=== PATIENT | female | born 1960 | race Caucasian/White ===

== ENCOUNTER 2021-12-11 19:00 | Emergency (ER) | payer BC, SELFPAY ==
[2021-12-11 19:48] VITALS: BP 165/75; PULSE 100; RESP 20; TEMP 36.8; O2SAT 98; BMI 29.7
--- NOTE | 2021-12-11 20:05 | CT_ITS ---
PROCEDURE INFORMATION: Exam: CT Abdomen And Pelvis Without Contrast Exam date and time: 12/11/2021 8:05 PM Age: 61 years old Clinical indication: Abdominal pain and other: Back; Patient HX: Pain radiates down left leg. HX metastatic breast cancer; Additional info: Back and abd pain TECHNIQUE: Imaging protocol: Computed tomography of the abdomen and pelvis without contrast. Radiation optimization: All CT scans at this facility use at least one of these dose optimization techniques: automated exposure control; mA and/or kV adjustment per patient size (includes targeted exams where dose is matched to clinical indication); or iterative reconstruction. COMPARISON: No relevant prior studies available. FINDINGS: Lungs: Mild dependent atelectasis at the lung bases. No consolidation. Calcified granuloma at the left lung base. Liver: Indeterminate 1 cm low-attenuation lesion near the junction of segments 6 and 7 in the posterior right hepatic lobe (series 5, image 31). Assessment for additional liver lesions is limited in the absence of intravenous contrast. Gallbladder and bile ducts: No wall thickening. No calcified stones. No biliary dilation. Pancreas: Unremarkable noncontrast appearance. Spleen: Normal. No splenomegaly. Adrenal glands: Normal. No mass. Kidneys and ureters: There is a 1.3 x 1.5 cm calculus at the lower pole the left kidney. There are a few nonobstructing right lower pole caliceal calculi measuring up to 0.2 cm in size. No hydronephrosis. No ureteral calculus. Stomach and bowel: No obstruction. No abnormal bowel wall thickening. Appendix: No evidence of appendicitis. Intraperitoneal space: No pneumoperitoneum. No ascites. Vasculature: Unremarkable. No abdominal aortic aneurysm. Lymph nodes: No enlarged lymph nodes. Urinary bladder: Bladder is decompressed, limiting its evaluation. Reproductive: Unremarkable as visualized. Bones/joints: Osteopenia. Widespread osseous metastatic disease. Age-indeterminate nondisplaced pathologic fractures of the posterior right 9th and 12th ribs, as well as the posterior left 9th and 10th ribs. Chronic-appearing mild superior endplate compression deformity of T10. Expansile lesion within the posterior, inferior portion of the L4 vertebral body resulting in posterior displacement of vertebral fragments, and a severe spinal canal stenosis at the L4-L5 level in conjunction with chronic degenerative factors. There is also high-grade left greater than right neural foraminal narrowing at L4-L5 and L5-S1. No significant height loss of the L4 vertebral body. There is a 1.6 cm mixed lucent/sclerotic lesion in the left femoral neck. No associated cortical thinning or periosteal reaction. There is chronic degenerative remodeling of both hips. Soft tissues: Postsurgical and/or post therapeutic changes in the deep left breast, for which correlation with history and breast imaging is recommended. Chronic postsurgical scarring in the lower anterior abdominal wall. Small right femoral hernia containing adipose tissue. IMPRESSION: 1. Widespread osseous metastatic disease. Expansile lesion in the posteroinferior portion of the L4 vertebral body producing a severe spinal canal stenosis at L4-L5. Age-indeterminate pathologic fractures of several posterior ribs bilaterally. 2. Indeterminate 1 cm lesion in the right hepatic lobe, metastatic disease is within the differential. If not previously evaluated, further assessed with liver MRI should be considered. 3. Bilateral nonobstructive nephrolithiasis.
[2021-12-11 20:12] LABS: Basophils # 0.1 K/mm3 (0-0.2); Eosinophils # 0.2 K/mm3 (0.0-0.4); Eosinophils % 2.5 % (0.1-12.0); Hematocrit 35.9 % (37.0-47.0); Lymphocytes # 1.4 K/mm3 (0.7-4.5); Lymphocytes % 15.4 % (10-50); Mean Corpuscular HGB Conc 33.5 g/dL (31.8-35.4); Mean Corpuscular Hemoglobin 33.3 pg (27.0-31.2); Mean Corpuscular Volume 99.3 fl (81-99); Mean Platelet Volume 7.7 fl (7.4-10.4); Monocytes # 0.3 K/mm3 (0.1-1.0); Monocytes % 3.6 % (1.7-9.3); Neutrophils # 6.8 K/mm3 (1.8-7.8); Neutrophils % 77.3 % (37.0-80.0); Platelet Count 303 K/mm3 (142-424); Red Blood Count 3.61 M/mm3 (4.20-5.40); White Blood Count 8.8 K/mm3 (4.8-10.8)
[2021-12-11 20:17] LABS: Microscopic, Urine URINE MICROSCOPIC (MICROSCOPIC)
--- NOTE | 2021-12-11 20:19 | PC.NURSE ---
Pt back from radiology
[2021-12-11 20:24] LABS: Alanine Aminotransferase 38 U/L (12-78); Albumin Level 4.4 g/dl (3.5-5.0); Albumin/Globulin Ratio 1.2 (1.1-1.8); Alkaline Phosphatase 65 U/L (38-126); Amylase 75 U/L (30-110); Anion Gap 18.8 mEq/L (5-15); Aspartate Amino Transferase 52 U/L (14-36); Bilirubin,Total 0.9 mg/dl (0.2-1.3); Blood Urea Nitrogen 22 mg/dl (7-17); Calcium 8.6 mg/dl (8.4-10.2); Carbon Dioxide 17 mmol/L (22.0-30.0); Chloride 108 mmol/L (98-107); Creatinine Clearance Estimated 58 mL/min (50-200); Estimated Glomerular Filt Rate 38 ml/min (>60); GFR (African American) 46 ML/MIN (>60); Globulin 3.6 g/dL (1.3-3.2); Glucose 187 mg/dl (74-100); Lipase 145 U/L (23-300); Magnesium 1.4 mg/dl (1.6-2.3); Potassium 4.8 mmoL/L (3.5-5.1); Sodium 139 mmol/L (136-145)
[2021-12-11 20:27] LABS: Appearance,Urine CLEAR (Clear); Bilirubin,Urine Negative (Negative); Blood, Urine TRACE-L (Negative); Color,Urine YELLOW (Yellow); Glucose,Urine (UA) Negative (Negative); Ketones,Urine Negative (Negative); Leukocyte Esterase,Urine Negative (Negative); Nitrate,Urine Negative (Negative); Protein,Urine 1+ (Negative); Specific Gravity, Urine <= 1.005 (1.005-1.030); Urobilinogen,Urine 0.2 EU/dl (0.2)
[2021-12-11 20:29] LABS: C-Reactive Protein 3.3 mg/L (0-4)
[2021-12-11 20:37] LABS: Squamous Epithelial Cell,Urine Occasional #/hpf (0-5); WBC,Urine Occasional #/hpf (0-3)
[2021-12-11 20:43] LABS: Procalcitonin 0.071 ng/mL (0.0-2.0)
[2021-12-11 21:26] LABS: Erythrocyte Sedimentation Rate 46 mm/hr (0-30)
--- NOTE | 2021-12-11 21:44 | HMH.EDGENADL ---
ED Disposition Clinical Impression: Metastatic breast cancer, Lesion of lumbar spine Disposition: Left Against Medical Advice Condition on Discharge: Serious Instructions: DI for Acute Pain -- Adult Additional Instructions: call oncologist in am Referrals: Provider,Referral, [Primary Care Provider] - - Critical Care Critical Care Time: No Attestation: On 12/11/21, the high probability of a clinically significant, sudden or life threatening deterioration of the following system(s) required my full and direct attention, intervention and personal management. The time I documented below is in addition to time spent performing reported procedures but includes the following listed in this critical care notation. Medical Decision Making - Medical Records Medical records reviewed: Yes: I reviewed the patient's medical records. - Mukesh Inquiry Pt receiving controlled substance: No Vital Signs: 12/11/21 19:48 Temperature 98.3 F Temperature Source Oral Pulse Rate [Apical] 100 H Respiratory Rate 20 Blood Pressure [Right Arm] 165/75 H Blood Pressure Mean [Right Arm] 105 Blood Pressure Source [Right Arm] Automatic Cuff Blood Pressure Position [Right Arm] Sitting 02 Sat by Pulse Oximetry 98 Oxygen Delivery Method Room Air - Lab Data Lab results reviewed: Yes: I reviewed the patient's lab results. Lab Results 12/11/21 20:00: WBC 8.8, RBC 3.61 L, Hgb 12.0 L, Hct 35.9 L, MCV 99.3 H, MCH 33.3 H, MCHC 33.5, RDW 16.0, Plt Count 303, MPV 7.7, Neut % (Auto) 77.3, Lymph % (Auto) 15.4, [place] % (Auto) 3.6, Eos % (Auto) 2.5, Baso % (Auto) 1.0, Neut # (Auto) 6.8, Lymph # (Auto) 1.4, [place] # (Auto) 0.3, Eos # (Auto) 0.2, Baso # (Auto) 0.1, ESR 46 H 12/11/21 20:00: Sodium 139, Potassium 4.8, Chloride 108 H, Carbon Dioxide 17 L, Anion Gap 18.8 H, BUN 22 H, Creatinine 1.40 H, Estimated Creat Clear 58, Estimated GFR 38 L, Est GFR ( Amer) 46 L, Glucose 187 H, Calcium 8.6, Total Bilirubin 0.9, AST 52 H, ALT 38, Alkaline Phosphatase 65, C-Reactive Protein 3.3, Total Protein 8.0, Albumin 4.4, Globulin 3.6 H, Albumin/Globulin Ratio 1.2, Amylase 75, Procalcitonin 0.071 12/11/21 20:00: Magnesium 1.4 L, Lipase 145 12/11/21 20:15: Urine Color Yellow, Urine Appearance Clear, Urine pH 6.0, Ur Specific [place] <= 1.005, Urine Protein 1+, Urine Glucose (UA) Negative, Urine Ketones Negative, Urine Blood Trace-l, Urine Nitrate Negative, Urine Bilirubin Negative, Urine Urobilinogen 0.2, Ur Leukocyte Esterase Negative, Urine RBC None, Urine WBC Occasional, Ur Squamous Epith Cells Occasional, Urine Bacteria None Result diagrams: 12/11/21 20:00 12/11/21 20:00 Orders (Tests/Meds): ED MEDICATIONS Generic Name Dose Route Start Last Admin Trade Name Freq PRN Reason Stop Dose Admin Sodium Chloride 1,000 mls @ 999 mls/hr 12/11/21 20:15 12/11/21 20:10 Sod Chlor 0.9% 1000ml Bag IV 12/11/21 21:15 999 mls/hr .Q1H1M FREIDA Administration Discontinued Medications Generic Name Dose Route Start Last Admin Trade Name Freq PRN Reason Stop Dose Admin Insulin Human Regular 10 unit 12/11/21 21:42 Insulin Human Regular 100 Units/Ml 10ml Vial IVP 12/11/21 21:43 ONCE ONE Ketorolac Tromethamine 30 mg 12/11/21 20:06 12/11/21 20:10 Ketorolac 30mg/Ml Vial IV 12/11/21 20:07 30 mg ONCE ONE Administration ORDERS Category Date Time Status CT cervical spine w con Stat Cat Scan 12/11/21 21:[address] lumbar spine w con Stat Cat Scan 12/11/21 21:[address] thoracic spine w con Stat Cat Scan 12/11/21 21:42 Ordered - CT Data CT Scan: Abdomen, Pelvis Time Received: 22:[address] Reviewed: Yes: I have viewed the radiologist's interpretation Preliminary Findings: Abnormal (see report ) Medical Decision Narrative: has known metastatic breast cancer with lesion to lumbar spine - no cauda equina sx - wants to call her oncologist - dr mei in am General Adult HPI - General Chief complaint: PAIN Stated complai
[2021-12-11 22:47] VITALS: BP 167/88; PULSE 78; RESP 18; TEMP 36.8; O2SAT 99
== END 2021-12-11 23:01 | disposition left against medical advice (07) ==
LOC: ER 19:29 → UTC 19:32 → ER 19:43
PROVIDERS: Emergency Provider Emergency Medicine
DX: M54.50 Low back pain, unspecified (principal); C50.919 Malignant neoplasm of unspecified site of unspecified female breast; C79.51 Secondary malignant neoplasm of bone
CPT/HCPCS: 74176; 80053; 81001; 82150; 83690; 83735; 84145; 85025; 85651; 86140; 96365; 96375; 99284

== ENCOUNTER 2025-08-15 09:12 | Inpatient (IN) | payer OTHER, SELFPAY ==
--- OUTSIDE RECORDS SUMMARY | 2025-06-16 13:30 | XMS_ITS | Encounter Summary ---
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 no 09/07/2022 Physical Signs of Abuse Present no 09/07/2022 PHQ-2 Answer Date Recorded Patient Health Questionnaire-2 Score 0 10/22/2024 Comments No Sex and Gender Information Value Date Recorded Sex Assigned at Not on file Legal Sex Female 11:35 AM EDT Gender Identity Not on file Sexual Orientation Not on file documented as of this encounter Plan of Treatment Upcoming Encounters Date Type Department Care Team (Late st Contact Info) Description 08/18/2025 8:45 AM EST Appointment [facility] OUTPATIENT ONCOL[facility]Y [address] [place] [address] 08/18/2025 9:15 AM EST Office Visit [facility] [address] [address] Valentina Sadler MD [address] [facility] [address] [place] [address] 08/18/2025 9:30 AM EST Appointment [facility] [address] [place] [address] 09/13/2025 1:00 PM EST Clinical Support [facility] [address] [facility] [place] [address] Lita Luis APRN [address] [place] [address] documented as of this encounter Goals Goal Patient Goal Type Associated Problems Recent Progress Patient-Stated? Author Specialty Pharmacy General Goal General No Leighann Lam, PharmD Note: Clinical goal/therapeutic target: disease control, per the recent oncology clinic notes and labs. 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 documented in this encounter Results * (ABNORMAL) CBC Auto Differential (06/16/2025 2:39 PM EDT) [facility] WBC 3.29(L) 3.40 - 10.80 10*3/mm3 06/16/2025 2:56 PM EDT [facility] RBC 3.01(L) 3.77 - 5.28 10*6/mm3 06/16/2025 2:56 PM EDT [facility] Hemoglobin 7.8(L) 12.0 - 15.9 g/dL 06/16/2025 2:56 PM EDT [facility] Hematocrit 25.5(L) 34.0 - 46.6 % 06/16/2025 2:56 PM EDT [facility] MCV 84.7 79.0 - 97.0 fL 06/16/2025 2:56 PM EDT [facility] MCH 25.9(L) 26.6 - 33.0 pg 06/16/2025 2:56 PM EDT [facility] MCHC 30.6(L) 31.5 - 35.7 g/dL 06/16/2025 2:56 PM EDT [facility] RDW 16.1(H) 12.3 - 15.4 % 06/16/2025 2:56 PM EDT [facility] RDW-SD 50.9 37.0 - 54.0 fl 06/16/2025 2:56 PM EDT [facility] MPV 8.8 6.0 - 12.0 fL 06/16/2025 2:56 PM EDT [facility] Platelets 77(L) 140 - 450 10*3/mm3 06/16/2025 2:56 PM EDT [facility] Neutrophil % 75.4 42.7 - 76.0 % 06/16/2025 2:56 PM EDT [facility] Lymphocyte % 14.3(L) 19.6 - 45.3 % 06/16/2025 2:56 PM EDT [facility] Monocyte % 7.9 5.0 - 12.0 % 06/16/2025 2:56 PM EDT [facility] Eosinophil % 2.1 0.3 - 6.2 % 06/16/2025 2:56 PM EDT [facility] Basophil % 0.3 0.0 - 1.5 % 06/16/2025 2:56 PM EDT [facility] Immature Grans % 0.0 0.0 - 0.5 % 06/16/2025 2:56 PM EDT [facility] Neutrophils, Absolute 2.48 1.70 - 7.00 10*3/mm3 06/16/2025 2:56 PM EDT [facility] Lymphocytes, Absolute 0.47(L) 0.70 - 3.10 10*3/mm3 06/16/2025 2:56 PM EDT [facility] Monocytes, Absolute 0.26 0.10 - 0.90 10*3/mm3 06/16/2025 2:56 PM EDT [facility] Eosinophils, Absolute 0.07 0.00 - 0.40 10*3/mm3 06/16/2025 2:56 PM EDT [facility] Basophils, Absolute 0.01 0.00 - 0.20 10*3/mm3 06/16/2025 2:56 PM EDT [facility] Immature Grans, Absolute 0.00 0.00 - 0.05 10*3/mm3 06/16/2025 2:56 PM EDT [facility] Blood Port / Unknown 06/16/2025 2: 39 PM EDT 06/16/2025 2:53 PM EDT us Valentina Sadler MD LAB BLOOD ORDERABLES Sherry l Result [facility]
[address] [place] [address], * (ABNORMAL) Comprehensive Metabolic Panel (06/16/2025 2:39 PM EDT) Glucose 199(H) 65 - 99 mg/dL 06/16/2025 3:23 PM EDT [facility] BUN 26.5(H) 8.0 - 23.0 mg/dL 06/16/2025 3:23 PM EDT [facility] Creatinine 1.70(H) 0.57 - 1.00 mg/dL 06/16/2025 3:23 PM T [facility] Sodium 139 136 - 145 mmol/L 06/16/2025 3:23 PM EDT [facility] Potassium 4.2 3.5 - 5.2 mmol/L 06/16/2025 3:23 PM EDT [facility] Chloride 103 98 - 107 mmol/L 06/16/2025 3:23 PM EDT [facility] CO2 23.0 22.0 - 29.0 mmol/L 06/16/2025 3:23 PM EDT [facility] Calcium 8.9 8.6 - 10.5 mg/dL 06/16/2025 3:23 PM [facility] Total Protein 6.9 6.0 - 8.5 g/dL 06/16/2025 3:23 PM [facility] Albumin 3.6 3.5 - 5.2 g/dL 06/16/2025 3:23 PM [facility] ALT (SGPT) 25 1 - 33 U/L 06/16/2025 3:23 PM [facility] AST (SGOT) 40(H) 1 - 32 U/L 06/16/2025 3:23 PM T [facility] Alkaline Phosphatase 140(H) 39 - 117 U/L 06/16/2025 3:23 PM T [facility] Total Bilirubin 0.2 0.0 - 1.2 mg/dL 06/16/2025 3:23 PM T [facility] Globulin 3.3 gm/dL 06/16/2025 3:23 PM [facility] Comment:Calculated Result A/G Ratio 1.1 g/dL 06/16/2025 3:23 PM T [facility] BUN/Creatinine Ratio 15.6 7.0 - 25.0 06/16/2025 3:23 PM EDT [facility] Anion Gap 13.0 5.0 - 15.0 mmol/L 06/16/2025 3:23 PM EDT [facility] eGFR 33.6(L) >60.0 mL/min/1.7 3 06/16/2025 3:23 PM EDT [facility] Blood Port / Unknown 06/16/2025 2: 39 PM EDT 06/16/2025 2:57 PM EDT Narrative [facility] - 06/16/2025 3:23 PM EDT GFR Categories in Chronic Kidney Disease (CKD) GFR Category GFR (mL/min/1.73) Interpretation G1 90 or greater Normal or high (1) G2 60-89 Mild decrease (1) G3a 45-59 Mild to moderate decrease G3b 30-44 Moderate to severe decrease G4 15-29 Severe decrease G5 14 or less Kidney failure (1)In the absence of evidence of kidney disease, neither GFR category G1 or G2 fulfill the criteria for CKD. eGFR calculation 2020 CKD-EPI creatinine equation, which does not include race as a factor Valentina Sadler MD LAB BLOOD ORDERABLES Sherry saucedo Result [facility]
[address] [place] [address], documented in this encounter Visit Diagnoses Diagnosis Encounter for care related to vascular access port- Primary Adenocarcinoma of 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 documented in this encounter Administered Medications Inactive Administered Medications - up to 3 most recent administrations Medication Order MAR Action Action Date Dose Rate Site heparin injection 500 Units 500 Units, Intravenous, As Needed, Line Care, Starting on Sat06/16/25 at 1439, Use for Implanted Ports.Indications:Encounter for care related to vascular access port Given 06/16/2025 2:48 PM EDT 500 Units documented in this encounter Care Teams Associate Drafter Relationship Specialty [place] [address] [place] [address] PCP - General 12/19/15 07/28/25 documented as of this encounter
--- OUTSIDE RECORDS SUMMARY | 2025-06-16 14:30 | XMS_ITS | Encounter Summary ---
Author Organization [facility] Address [address] [place] [address] Care Team Providers Care Commercial Fisher Name Role Phone Loretta Cuevas MD Primary Care Provider [phone] Encounter Details Date Type Department Care Team (Late st Contact Info) Description 06/16/2025 3:30 PM EDT Office Visit [facility] HEMATOLOGY & [facility]COLOGY [address] [facility] [address] [place] [id number] Valentina Sadler MD [address] [facility] [address] [place] [address] Dysuria (Primary Dx); Malignant neoplasm metastatic to brain; Malignant neoplasm of upper-outer quadrant of left breast in female, estrogen receptor positive Social History Tobacco Use Types Packs/Day Years [...] on file documented as of this encounter Last Filed Vital Signs Vital Sign Reading Time Taken Comments Blood Pressure 135/63 06/16/2025 3:04 PM EDT RUE Pulse 86 06/16/2025 3:04 PM EDT Temperature 36.1 C (96.9 F) 06/16/2025 3:04 PM EDT Respiratory Rate 16 06/16/2025 3:04 PM EDT Oxygen Saturation 100% 06/16/2025 3:04 PM EDT RA Inhaled Oxygen Concentration - - Weight 72.6 kg (160 lb) 06/16/2025 3:04 PM EDT Height 170.2 cm (5' 7 ) 06/16/2025 3:04 PM EDT Body Mass Index 25.06 06/16/2025 3:04 PM EDT documented in this encounter Progress Notes * Valentina Sadler MD - 06/16/2025 3:30 PM EDT PROBLEM LIST: Oncology/Hematology History Overview Note 1. Stage IIA, ER/PA positive, HER-2 positive left upper/outer quadrant breast cancer, status post lumpectomy and lymph node dissection with 2/5 lymph nodes positive at the time of surgery on 12/01/2013. 2. Completed 6 cycles of Taxotere, carboplatin, Herceptin and Perjeta on 04/06/2014. 3. Grade 1 neuropathy, resolved. 4. Complete oophorectomy with Dr. Danielle for consideration of aromatase inhibitor due to high risk breast cancer. 5. Completed Herceptin maintenance in 12/2014 6. Completed radiotherapy with Dr. Flower Mackay. Malignant neoplasm of upper-outer quadrant of left breast in female, estrogen receptor positive 11/02/2013 Initial Diagnosis Malignant neoplasm of upper-outer quadrant of left female breast 12/01/2013 Cancer Staged Staging form: Breast, AJCC V7 - Clinical stage from 12/01/2013: Stage IIA (T1b, N1, M0) - Signed by Valentina Sadler MD on 09/25/2019 09/25/2019 Progression 1. Liver and Bone Mets - ER negative, PA Negative and HER-2 positve Lab Results Component Value Date FINALDX 09/22/2019 LIVER, CORE BIOPSY: Involved by metastatic carcinoma consistent with metastatic breast carcinoma (see Comment). Metastatic tumor is negative for estrogen receptor and progesterone receptor by immunohistochemistry. Metastatic tumor is strongly positive for HER-2/yadi by immunohistochemistry (3+). PCC/dlb Chemotherapy 1. TCH-P Adjuvantly x 6 cycles till 03/2014 2. Herceptin maintenance until 12/201410/09/2019 - 02/11/2020 Chemotherapy OP BREAST Pertuzumab / Trastuzumab-anns / PACLitaxel 02/12/2020 - 05/05/2020 Chemotherapy OP BREAST Pertuzumab / Trastuzumab-anns Q21D 05/06/2020 - 07/07/2020 Chemotherapy OP BREAST Lapatinib / Trastuzumab-anns Q21D 07/15/2020 - 11/16/2020 Chemotherapy OP BREAST Ado-Trastuzumab Emtansine 11/17/2020 - 12/21/2021 Chemotherapy OP BREAST Tucatinib / Capecitabine / Trastuzumab-anns 08/17/2021 - 08/17/2021 Chemotherapy OP INFLUENZA IMMUNIZATION 01/11/2022 - Chemotherapy OP BREAST Fam-Trastuzumab Deruxtecan-nxki Adenocarcinoma of 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 09/25/2019 Initial Diagnosis Adenocarcinoma of 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 (CMS/HCC) 10/09/2019 - 02/11/2020 Chemotherapy OP BREAST Pertuzumab / Trastuzumab-anns / PACLitaxel 10/09/2019 - 02/22/2022 Chemotherapy OP SUPPORTIVE Denosumab (Xgeva) 12 weeks after 06/15/2021 02/12/2020 - 05/05/2020 Chemotherapy OP BREAST Pertuzumab / Trastuzumab-anns Q21D 05/06/2020 - 07/07/2020 Chemotherapy OP BREAST Lapatinib / Trastuzumab-anns Q21D 07/15/2020 - 11/16/2020 Chemotherapy OP BREAST Ado-Trastuzumab Emtansine 11/17/2020 - 12/21/2021 Chemotherapy OP BREAST Tucatinib / Capecitabine / Trastuzumab-anns 01/11/2022 - Chemotherapy OP BREAST Fam-Trastuzumab Deruxtecan-nxki 12/12/2024 Biopsy OP BREAST Neratinib Plan Provider: Valentina Sadler MD Treatment goal: Palliative Line of treatment: Third Line Metastasis to bone 09/25/2019 Initial Diagnosis Bone metastases (CMS/HCC) 10/09/2019 - 02/11/2020 Chemotherapy OP BREAST Pertuzumab / Trastuzumab-anns / PACLitaxel 10/09/2019 - 02/22/2022 Chemotherapy OP SUPPORTIVE Denosumab (Xgeva) 12 weeks after 06/15/2021 02/12/2020 - 05/05/2020 Chemotherapy OP BREAST Pertuzumab / Trastuzumab-anns Q21D 05/06/2020 - 07/07/2020 Chemotherapy OP BREAST Lapatinib / Trastuzumab-anns Q21D 07/15/2020 - 11/16/2020 Chemotherapy OP BREAST Ado-Trastuzumab Emtansine 11/17/2020 - 12/21/2021 Chemotherapy OP BREAST Tucatinib / Capecitabine / Trastuzumab-anns 01/08/2022 - 01/19/2022 Radiation Radiation OncologyTreatment Course: Peter Parnell received 3000 cGy in 10 fractions to L3-5 spine and sacrum via External Beam Radiation - EBRT. 01/11/2022 - Chemotherapy OP BREAST Fam-Trastuzumab Deruxtecan-nxki Brain metastases 09/06/2022 Initial Diagnosis Brain metastases (HCC) 09/10/2022 - 09/26/2022 Radiation Radiation OncologyTreatment Course: Peter Parnell received 3000 cGy in 10 fractions to whole brain via External Beam Radiation - EBRT. 12/12/2024 Biopsy OP BREAST Neratinib Plan Provider: Valentina Sadler MD Treatment goal: Palliative Line of treatment: Third Line REASON FOR VISIT: Management of my recurrent breast cancer HISTORY OF PRESENT ILLNESS: 64 y.o. female presents today for follow-up. She has been on Enhertu since December 2021. She had intracranial progression. She has completed whole brain radiation in late August 2022. Her vision has almost back to normal now. The corrective lenses have done remarkably well in correcting her vision.She is actually doing reasonably well. She had progressive disease in the brain and so I switched her to her neratinib. She is on 400 mg dose of neratinib and is having a lot more fatigue. She recently retired. She is actually doing reasonably well except for some dysuria Past medical history, social history and family history was reviewed and unchanged from prior visit. Review of Systems: Review of Systems Constitutional: Positive for fatigue. HENT: Negative. Eyes: Negative. Respiratory: Negative. Cardiovascular: Positive for leg swelling. Gastrointestinal: Negative. Endocrine: Negative. Genitourinary: Positive for dysuria. Musculoskeletal: Positive for back pain. Skin: Negative. Neurological: Positive for numbness. Hematological: Negative. Psychiatric/Behavioral: Negative. Medications: Current Outpatient Medications: capecitabine (XELODA) 500 MG chemo tablet, Take 2 tablets by mouth 2 (Two) Times a Day. on days 1-14, then off for 7 days in each 21-day cycle. Take within 30 minutes of a meal., Disp: , Rfl: Carboxymethylcellulose Sodium (EYE DROPS OP), Apply to eye(s) as directed by provider. Serum Tears,Disp: , Rfl: colestipol (COLESTID) 1 g tablet, Take 2 tablets by mouth 2 (Two) Times a Day., Disp: 120 tablet, Rfl: 0 cyclobenzaprine (FLEXERIL) 5 MG tablet, Take 1 tablet by mouth Every Night., Disp: 60 tablet, Rfl: 5 donepezil (Aricept) 10 MG tablet, Take 1 tablet by mouth Every Night., Disp: 30 tablet, Rfl: 5 erythromycin (ROMYCIN) 5 MG/GM ophthalmic ointment, APPLY A SMALL AMOUNT AT BEDTIME, Disp: , Rfl: fam-trastuzumab deruxtec-nxki (Enhertu) 100 MG reconstituted solution chemo injection, Infuse 5.4 mg/kg into a venous catheter., Disp: , Rfl: glimepiride (AMARYL) 2 MG tablet, Take 1 tablet by mouth Daily., Disp: 90 tablet, Rfl: 1 hydroCHLOROthiazide (HYDRODIURIL) 12.5 MG tablet, Take 1-2 tablet(s) by mouth daily as needed, Disp: 180 tablet, Rfl: 1 lidocaine-prilocaine (EMLA) 2.5-2.5 % cream, Apply 1 application topically to the appropriate area as directed as needed (45-60 minutes prior to port access. Cover with saran/plastic wrap)., Disp: 30g, Rfl: 5 loperamide (IMODIUM) 2 MG capsule, Take 2 capsules by mouth 3 times daily for 2 weeks, THEN 2 capsules by mouth 2 times daily for 6 weeks, THEN as needed. Do NOT exceed 8 capsules per day., Disp: 140capsule, Rfl: 3 magnesium oxide (MAG-OX) 400 MG tablet, TAKE 1 TABLET BY MOUTH EVERY DAY, Disp: 30 tablet, Rfl: 5 meclizine (ANTIVERT) 25 MG tablet, Take 1 tablet by mouth 3 (Three) Times a Day As Needed for Dizziness., Disp: 30 tablet, Rfl: 1 memantine (Namenda) 5 MG tablet, Take 1 tablet by mouth 2 (Two) Times a Day., Disp: 60 tablet, Rfl:5 metFORMIN (GLUCOPHAGE) 500 MG tablet, Take 1 tablet by mouth 4 (Four) Times a Day. 2 tablets twice a day, Disp: , Rfl: metFORMIN (GLUCOPHAGE) 500 MG tablet, Take 5 tablets by mouth Daily., Disp: 450 tablet, Rfl: 1 metFORMIN (GLUCOPHAGE) 500 MG tablet, Take 5 tablets by mouth once daily as directed, Disp: 450 tablet, Rfl: 1 methylPREDNISolone (MEDROL) 4 MG dose pack, Take as directed on package instructions., Disp: 21 tablet, Rfl: 0 moxifloxacin (VIGAMOX) 0.5 % ophthalmic solution, INSTILL 1 DROP INTO EACH EYE THREE TIMES DAILY, Disp: , Rfl: multivitamin with minerals tablet tablet, Take 1 tablet by mouth Daily., Disp: , Rfl: Neratinib 40 MG tablet chemo tablet, Take 4 tablets by mouth Daily. with food., Disp: 120 tablet, Rfl: 11 ondansetron (ZOFRAN) 8 MG tablet, Take 1 tablet by mouth 3 (Three) Times a Day As Needed for Nauseaor Vomiting., Disp: 30 tablet, Rfl: 5 ondansetron (ZOFRAN) 8 MG tablet, Take 1 tablet by mouth Every 8 (Eight) Hours As Needed for Nauseaor Vomiting., Disp: 30 tablet, Rfl: 3 oxyCODONE-acetaminophen (PERCOCET) 7.5-325 MG per tablet, Take 1 tablet by mouth Every 6 (Six) Hours As Needed for Moderate Pain., Disp: 120 tablet, Rfl: 0 potassium & sodium phosphates (Phos-NaK) 280-160-250 MG pack packet, Take 1 packet by mouth with each meal, Disp: 90 packet, Rfl: 5 prednisoLONE acetate (PRED FORTE) 1 % ophthalmic suspension, Administer 1 drop to both eyes 3 (Three) Times a Day., Disp: , Rfl: ciprofloxacin (Cipro) 500 MG tablet, Take 1 tablet by mouth 2 (Two) Times a Day for 7 days., Disp: 14 tablet, Rfl: 0 No current facility-administered medications for this visit. ALLERGIES: No Known Allergies Physical Exam VITAL SIGNS: Vitals: 06/16/25 1504 BP: 135/63 Pulse: 86 Resp: 16 Temp: 96.9 ??F (36.1 ??C) SpO2: 100% 06/16/25 1504 Weight: 72.6 kg (160 lb) Performance Status: 0 General: well appearing, in no acute distress HEENT: sclera anicteric, Lymphatics: no cervical, supraclavicular, or axillary adenopathy, Cardiovascular: regular rate and rhythm, no murmurs, rubs or gallops Lungs: clear to auscultation bilaterally Abdomen: soft, nontender, nondistended. No palpable organomegaly Extremities: no lower extremity edema Skin: no rashes, lesions, bruising, or petechiae Msk: Shows no weakness of the large muscle groups Psych: Mood is stable Lesion on her scalp has improved RECENT LABS: Lab Results Component Value Date HGB 7.8 (L) 06/16/2025 HCT 25.5 (L) 06/16/2025 MCV 84.7 06/16/2025 PLT 77 (L) 06/16/2025 WBC 3.29 (L) 06/16/2025 NEUTROABS 2.48 06/16/2025 LYMPHSABS 0.47 (L) 06/16/2025 MONOSABS 0.26 06/16/2025 EOSABS 0.07 06/16/2025 BASOSABS 0.01 06/16/2025 Lab Results Component Value Date GLUCOSE 199 (H) 06/16/2025 BUN 26.5 (H) 06/16/2025 CREATININE 1.70 (H) 06/16/2025 NA 139 06/16/2025 K 4.2 06/16/2025 CL 103 06/16/2025 CO2 23.0 06/16/2025 CALCIUM 8.9 06/16/2025 PROTEINTOT 6.9 06/16/2025 ALBUMIN 3.6 06/16/2025 BILITOT 0.2 06/16/2025 ALKPHOS 140 (H) 06/16/2025 AST 40 (H) 06/16/2025 ALT 25 06/16/2025 CT Abdomen Pelvis Without Contrast Result Date: 06/15/2025 Impression: 1. Increasing 6 mm left upper lobe nodule and new 3 mm left upper lobe nodule of uncertain significance at this size, possibly infectious/inflammatory rather than metastatic. Other pulmonary nodules show no significant change. Recommend attention on follow-up restaging exams. 2. No other convincing signs of disease progression in the neck, chest, abdomen or pelvis within limitations of this noncontrasted exam. Grossly stable mixed lucent and sclerotic osseous metastases. 3. Stable splenomegaly. 4. Stable small hypodense liver lesions. 5. Nonobstructing renal calculi. 6. Trace intraluminal gas in the urinary bladder most commonly reflecting sequelae of recent instrumentation. Correlate with urinalysis as clinically indicated. Electronically Signed: Galen Hawley MD 06/15/2025 2:21 PM EDT Workstation ID: [id number] [facility] CT Soft Tissue Neck Without Contrast Result Date: 06/15/2025 Impression: 1. Increasing 6 mm left upper lobe nodule and new 3 mm left upper lobe nodule of uncertain significance at this size, possibly infectious/inflammatory rather than metastatic. Other pulmonary nodules show no significant change. Recommend attention on follow-up restaging exams. 2. No other convincing signs of disease progression in the neck, chest, abdomen or pelvis within limitations of this noncontrasted exam. Grossly stable mixed lucent and sclerotic osseous metastases. 3. Stable splenomegaly. 4. Stable small hypodense liver lesions. 5. Nonobstructing renal calculi. 6. Trace intraluminal gas in the urinary bladder most commonly reflecting sequelae of recent instrumentation. Correlate with urinalysis as clinically indicated. Electronically Signed: Galen Hawley MD 06/15/2025 2:21 PM EDT Workstation ID: [id number] [facility] Chest Without Contrast Diagnostic Result Date: 06/15/2025 Impression: 1. Increasing 6 mm left upper lobe nodule and new 3 mm left upper lobe nodule of uncertain significance at this size, possibly infectious/inflammatory rather than metastatic. Other pulmonary nodules show no significant change. Recommend attention on follow-up restaging exams. 2. No other convincing signs of disease progression in the neck, chest, abdomen or pelvis within limitations of this noncontrasted exam. Grossly stable mixed lucent and sclerotic osseous metastases. 3. Stable splenomegaly. 4. Stable small hypodense liver lesions. 5. Nonobstructing renal calculi. 6. Trace intraluminal gas in the urinary bladder most commonly reflecting sequelae of recent instrumentation. Correlate with urinalysis as clinically indicated. Electronically Signed: Galen Hawley MD 06/15/2025 2:21 PM EDT Workstation ID: [id number] [facility] MRI Brain Without Contrast Result Date: 06/10/2025 Impression: Evaluation of metastatic disease is limited in the absence of IV contrast. There is likely stable edema associated with previously noted metastatic lesions within the left cerebellum and right occipital lobe. No obvious new mass or mass effect is evident. Electronically Signed: Elvis covington MD 06/10/2025 2:29 PM EDT Workstation ID: [id number] [facility] Brain With & Without Contrast Result Date: 03/22/2025 Impression: Likely stable exam demonstrating persistent mildly edematous and enhancing small lesions of the right occipital lobe, left cerebellum and within the subcortical white matter of the right frontal lobe. No definite progression of these lesions or evidence of new intracranial metastasis. Electronically Signed: Elvis Koch MD 03/22/2025 10:21 AM EDT Workstation ID: [id number] CT Abdomen Pelvis With Contrast Result Date: 02/22/2025 Impression: 1.Multifocal sclerotic osseous metastases appear unchanged. No evidence of soft tissue metastasis within chest/abdomen/pelvis. 2.No acute process identified. 3.Mild splenomegaly. 4.Bilateral nonobstructing renal stones. Electronically Signed: Gabino Peace MD 02/22/2025 4:58 PM EDT Wor kstation ID: [id number] CT Chest With Contrast Diagnostic Result Date: 02/22/2025 Impression: 1.Multifocal sclerotic osseous metastases appear unchanged. No evidence of soft tissue metastasis within chest/abdomen/pelvis. 2.No acute process identified. 3.Mild splenomegaly. 4.Bilateral nonobstructing renal stones. Electronically Signed: Gabino Peace MD 02/22/2025 4:58 PM EDT Wor kstation ID: [id number] Assessment/Plan 1. Metastatic HER-2 positive breast cancer with liver and bone metastases and now with intracranialmetastases. I reviewed her scans which shows no sign of progressive disease. For now I think she isresponding to neratinib with no significant issues. Will see how she does in the next 3 months. 2. Bone metastases. She was on Xgeva for over 2 years now. At this point her risk of toxicity from Xgeva far outweighs her benefit. We will plan to discontinue this. 3. Neuropathy secondary to chemotherapy. Patient on low-dose narcotics at night to help with sleep.She is not tolerating gabapentin as well as I like. I am going to try Lyrica to see if that helps with that the side effects. 4. Lower extremity edema. She is taking hydrochlorothiazide currently. 5. Brain metastases. Completed whole brain radiation. There has been some improvement in her vision. Hopefully this will continue. 6. Vision changes. Her vision is almost back to normal at this time. She is followed by ophthalmology. Total time of patient care on day of service including time prior to, face to face with patient, and following visit spent in reviewing records, lab results, imaging studies, discussion with patient,and documentation/charting was >30 minutes. Valentina Sadler MD [facility] Hematology and Oncology Return in (Approximately): 6 weeks Orders Placed This Encounter Procedures Urine Culture - Urine, Urine, Clean Catch Comprehensive Metabolic Panel Urinalysis With Microscopic - Urine, Clean Catch CBC & Differential 06/16/2025 documented in this encounter Plan of Treatment Upcoming Encounters Date Type Department Care Team (Late st Contact Info) Description 08/18/2025 8:45 AM EST Appointment [facility] OUTPATIENT ONCOLOGY [address] [place] [address] 08/18/2025 9:15 AM EST Office Visit [facility] HEM[facility] & ONCOLOGY [address] [address] Valentina Sadler MD [address] [address] 08/18/2025 9:30 AM EST Appointment [facility] OUTPATIENT ONCOLOGY [address] [place] [address] 09/13/2025 1:00 PM EST Clinical Support [facility] [address] [place] [address] Lita Luis, [employer] SEPARATOR [address] [place] [address] Scheduled Orders Name Type Priority Associated Diagnoses Orde r Schedule Urinalysis With Microscopic - Urine, Clean Catch Lab Panel Routine Dysuria Expected: 06/16/2025 (Approximate), Expires: 09/15/2026 Urine Culture - Urine, Urine, Clean Catch Microbiology Routine Dysuria Expected: 06/16/2025 (Approximate), Expires: 09/15/2026 CBC & Differential Lab Panel Routine Malignant neoplasm metastatic to brain Malignant neoplasm of upper-outer quadrant of left breast in female, estrogen receptor positive Expected: 06/21/2025 (Approximate), Expires: 09/15/2026 Comprehensive Metabolic Panel Lab Routine Malignant neoplasm metastatic to brain Malignant neoplasm of upper-outer quadrant of left breast in female, estrogen receptor positive Expected: 06/21/2025 (Approximate), Expires: 09/15/2026 documented as of this encounter Goals Goal Patient Goal Type Associated Problems Recent Progress Patient-Stated? Author Specialty Pharmacy General Goal General No Leighann Lam, PharmD Note: Clinical goal/therapeutic target: disease control, per the recent oncology clinic notes and labs. documented as of this encounter Visit Diagnoses Diagnosis Dysuria- Primary Malignant neoplasm metastatic to brain Malignant neoplasm of upper-outer quadrant of left breast in female, estrogen receptor positive documented in this encounter Care Teams Commercial Fisher Relationship Specialty Start Date End Date Loretta Cuevas MD [address] [place] [address] PCP - General 12/19/15 07/28/25 documented as of this encounter
--- OUTSIDE RECORDS SUMMARY | 2025-07-14 19:13 | XMS_ITS | Encounter Summary ---
Author Organization [facility] Address [address] [place] [address] Care Team Providers Care Mechanical Specialist Name Role Phone Loretta Landon MD Primary Care Provider [phone] Reason for Referral * Physical Therapy (Routine) - Pending Review Specialty Diagnoses / Procedures Referred By Contact Referred To Contact Physical Therapy Diagnoses Cauda equina syndrome Spinal cord mass Malignant neoplasm metastatic to brain Procedures ME OFFICE/OUTPATIENT NEW MODERATE MDM 45 MINUTES Yury Prieto DO [address] [facility] [address] [place] [address] Phone: tel: fax: [facility] [address] [place] [address] Phone: tel: fax: Referral ID Status Reason Start Date Expiration Date Visits Requested Visits Authorized [id number] Pending Review Specialty Services Required 10/26/2026 1 1 * Home Health (Routine) - Pending Review Specialty Diagnoses / Procedures Referred By Haley arceo Referred To Contact Home Health Services Diagnoses Cauda equina syndrome Carcinoma of breast metastatic to bone, unspecified laterality Procedures ME OFFICE/OUTPATIENT NEW MODERATE MDM 45 MINUTES Everton Lassiter MD [address] [place] [id number] Phone: tel:[phone] fax: Referral ID Status Reason Start Date Expiration Date Visits Requested Visits Authorized [id number] Pending Review Specialty Services Required 5 10/15/2026 999 999 Reason for Visit * Reason Comments Weakness - Generalized * Auth/Cert Specialty Diagnoses / Procedures Referred By Contac t Referred To Contact Diagnoses Cauda equina syndrome Referral ID Status Reason Start Date Expiration Date Visits Re quested Visits Authorized [id number] 1 1 Encounter Details Date Type Department Care Team (Late st Contact Info) Description 2025 8:13 PM EDT - 07/27/2025 4:48 PM EDT Hospital Encounter [address] [place] [address] [place] [address] [place] [address] Attn: [place] [address] Meaghan Guerrier MD [address] [address] Everton Lassiter MD [address] [address] Carl Shook MD [address] [address] Foster Patel MD [address] [place] [address] Yury Prieto DO [address] [address] Cauda equina syndrome (Primary Dx); Metastatic malignant neoplasm, unspecified site; Adenocarcinoma of 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; Malignant neoplasm of upper-outer quadrant of left breast in female, estrogen receptor positive; Carcinoma of breast metastatic to bone, unspecified laterality; Falls; Spinal cord mass; Brain metastases Discharge Disposition: Home or Self Care Social History Tobacco Use Types Packs/Day Years Used Date Smoking Tobacco: Never Smokeless Tobacco: Never Alcohol Use Standard Drinks/Week Comments Not Currently 0 (1 standard drink = 0.6 oz pur e alcohol) PHQ-2 Answer Date Recorded Retired PHQ-9: Brief Depression Severity Measure Score 0 01/31/2023 AUDIT-C Answer Date Recorded Q1: How often do you have a drink containing alcohol? Never 07/15/2025 Q2: How many drinks containi ng alcohol do you have on a typical day when you are drinking? Patient does not drink Q3: How often do you have si x or more drinks on one occasion? Never 07/15/2025 Overall Financial Resource Strain (CARDIA) Answe r Date Recorded How hard is it for you to pa y for the very basics like food, housing, medical care, and heating? Not very hard 07/15/2025 [facility] - Occupational Stress Questionnaire Answer Date Recorded Do you feel stress - tense, restless, nervous, or anxious, or unable to sleep at night because your mind is troubled all the time - these days? Only a little 07/15/2025 Exercise Vital Sign Answer Date Recorde d On average, how many days pe r week do you engage in moderate to strenuous exercise (like a brisk walk)? 0 days 07/15/2025 On average, how many minutes do you engage in exercise at this level? 0 min 07/15/2025 Hunger Vital Sign Answer Date Recorded Within the past 12 months, y ou worried that your food would run out before you got the money to buy more. Never true 07/15/20 25 Within the past 12 months, t he food you bought just didn't last and you didn't have money to get more. Never true 07/15/2025 PRAPARE - Transportation Answer Date Re corded In the past 12 months, has l ack of transportation kept you from medical appointments or from getting medications? No 06/30 In the past 12 months, has l ack of transportation kept you from meetings, work, or from getting things needed for daily living? No 07/15/2025 [facility] Utilities Answer Date Recorded In the past 12 months has th e electric, gas, oil, or water company threatened to shut off services in your home? No 07/15/2025 Abuse Screen Answer Date Recorded Feels Unsafe at Home or Work/School no 07/15/2025 Feels Threatened by Someone no 06/30 Does Anyone Try to Keep You From Having Contact with Others or Doing Things Outside Your Home? no 07/15/2025 Physical Signs of Abuse Present no 07/15/2025 Housing Stability Answer Date Recorded Current Living Arrangements home 06/30 Potentially Unsafe Housing Conditions none 07/18/2025 Family and Community Support Answer Omar e Recorded If for any reason you need h elp with day-to-day activities such as bathing, preparing meals, shopping, managing finances, etc., do you get the help you need? I get all the help I need 07/15/2025 How often do you feel lonely or isolated from those around you? Never 07/15/2025 Employment Answer Date Recorded Do you want help finding or keeping work or a job? I do not need or want help 07/15/2025 Disabilities Answer Date Recorded Difficulty Concentrating, Remembering or Making Decisions no 07/15/2025 Difficulty Managing Errands Independently no 07/15/2025 Education Answer Date Recorded Do you want help with school or training? For example, starting or completing job training or getting a high school diploma, GED or equivalent No 07/15/2025 Preferred Language [place] 07/15/2025 PHQ-2 Answer Date Recorded Patient Health Questionnaire-2 Score 0 07/15/2025 Comments No Sex and Gender Information Value Date Recorded Sex Assigned at Not on file Legal Sex Female 11:35 AM EDT Gender Identity Not on file Sexual Orientation Not on file documented as of this encounter Last Filed Vital Signs Vital Sign Reading Time Taken Comments Blood Pressure 128/50 07/27/2025 10:39 AM EDT Pulse 73 07/27/2025 10:39 AM EDT Temperature 36.8 C (98.2 F) 07/27/2025 10:39 AM EDT Respiratory Rate 18 07/27/2025 10:39 AM EDT Oxygen Saturation 98% 07/27/2025 10:39 AM EDT Inhaled Oxygen Concentration - - Weight 76 kg (167 lb 9.6 oz) 07/27/2025 4:00 AM EDT Height 170.2 cm (5' 7 ) 2025 8:01 PM EDT Body Mass Index 26.25 2025 8:01 PM EDT documented in this encounter Functional Status * Over the past 2 weeks, how often have you been bothered by any of the following problems? Question Answer Date of Assessment Author Patient Health Questionnaire -2 Score 0 07/15/2025 11:11 AM EDT Rehana Marshall RN * Calculated C-SSRS Risk Score (Lifetime/Recent) Answer Date of Assessment Author No Risk Indicated 2025 8:03 PM EDT Anna Neves RN * [place] Suicide Severity Rating Scale (Screener/Recent Self-Report) Question Answer Date of Assessment Author 1. Wish to be (Past 1 Month) No 8:03 PM EDT Anna Mazariegos RN 2. Non-Specific Active Suici karen Thoughts (Past 1 Month) No 2025 8:03 PM EDT Robert Mazariegos RN 6. Suicidal Behavior (Lifetime) No 8:03 PM EDT Anna Mazariegos RN * Question Answer Date of Assessment Author Little interest or pleasure in doing things Not at all 07/15/2025 11:11 AM EDT Rehana Marshall RN Feeling down, depressed, or hopeless Not at all 07/15/2025 11:11 AM EDT Rehana Marshall RN documented as of this encounter Discharge Summaries * Yury Prieto DO - 07/27/2025 1:30 PM EDT Images from the original note were not included. [facility] DISCHARGE SUMMARY Patient Name: Peter Parnell : 1960 Date of Admission: 2025 8:13 PM Date of Discharge: 07/27/25 Primary Care Physician: Loretta Landon MD Consults Date and Time Order Name Status Description 07/15/2025 8:25 AM Inpatient Radiation Oncology Consult Completed 07/15/2025 2:03 AM Inpatient Palliative Care MD Consult Completed 07/15/2025 2:03 AM Inpatient Neurosurgery Consult Completed 07/15/2025 2:03 AM Inpatient Hematology & Oncology Consult Completed Hospital Course Presenting Problem: Left sided weakness, falls Active Hospital Problems Diagnosis POA ??? Spinal cord mass [G95.89] Yes ??? Falls [R29.6] Not Applicable ??? Anemia, chronic disease [D63.8] Yes ??? Thrombocytopenia [D69.6] Yes ??? Stage 3b chronic kidney disease [N18.32] Yes ??? Moderate protein-calorie malnutrition [E44.0] Yes ??? Breast cancer metastasized to bone [C50.919, C79.51] Yes Resolved Hospital Problems No resolved problems to display. Hospital Course: Peter Parnell is a 65 y.o. female with metastatic HER2-positive breast cancer involving bone, liver, and brain, stage 3b chronic kidney disease, chronic anemia, and type 2 diabetes, admitted forprogressive left-sided weakness, frequent falls, and functional decline. Inpatient imaging revealed metastatic breast cancer and spinal cord mass. Patient was evaluated by neurosurgery, radiation oncology, and oncology. No indication for neurosurgical intervention at this time. Status post palliative radiation with radiation oncology while inpatient. Patient to follow-up with oncology and radiation oncology as an outpatient for continued management. Patient will continue high- dose steroids and IV insulin upon discharge. Evaluated by therapy, who recommended nursing home facility. Patient and family declined, and elected to be discharged home. Further details documented below. Spinal Cord Mass (Cervical Intramedullary Metastasis, Cauda Equina Syndrome) - Imaging revealed a 1.2 x 0.8 x 2.5 cm intramedullary mass at C6-7 with diffuse T2 hyperintensity from C1 through the upper thoracic spine, consistent with metastatic disease and correlating with her acute left-sided weakness and functional decline. Neurosurgery and radiation oncology recommended nonoperative management with high-dose steroids and palliative radiation therapy to the cervical spine, which was completed on 07/22 with a total dose of 20 Gy in 5 fractions. She tolerated radiation well, with improvement in left lower extremity strength and no acute toxicities; mild esophagitis risk was discussed for follow-up. Neurologically, she demonstrated persistent left lower extremity weakness (improving from 2/5 to 4/5 proximally), left-sided foot drop, and decreased left upper extremity motor control, with some improvement in numbness and bladder emptying following steroids and radiation. No surgical intervention was recommended by neurosurgery. Bladder function was monitored due to prior urinary retention and neurogenic bladder concerns, with improvement noted. 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 Patient to follow up with oncology on 07/28/25. Patient will continue PO st eroids and famotidine upon discharge. Breast Cancer Metastasized to Bone, Brain, and Liver - She has widely metastatic breast cancer with progression in bone, liver, and brain despite multiple lines of systemic therapy and prior radiation to L3-5, sacrum, and whole brain. MRI and CT imaging during admission showed a new avidly enhancing metastasis at T12 with associated bone destruction,multiple osseous metastases in the lumbar spine and right ilium, and a stable pathologic compression fracture at L4 with retropulsion causing high-grade spinal canal stenosis and compression of the cauda equina. Multiple enlarging intracranial metastases were present, including a left cerebellar lesion with increased edema and mild mass effect, and additional lesions in the right frontal, occipital, and cerebellar regions. Liver metastases were noted, and she developed worsening transaminitis during admission, with MRI on 07/23 showing no convincing evidence of active solid organ or deuce metastatic disease in the abdomen and scattered small liver lesions most suggestive of cysts or possibly treated disease. Oncology plans to reinitiate Enhertu once she is stable and has completed radiotherapy, with outpatient follow-up for further management; she is scheduled for outpatient oncology follow-up on 07/28/25. Falls and Functional Decline - She presented with frequent falls and progressive left-sided weakness, requiring minimum to moderate assistance for transfers and ambulation, and demonstrated impaired balance, endurance, and safety awareness. Physical and occupational therapy assessments confirmed significant deficits in mobility and self-care, with persistent left lower extremity weakness, left knee buckling, and decreased left upper extremity motor control. - Therapy recommended discharge to a nursing home facility for best outcome, but she declined SNF and elected to discharge home with 22/04 family support and outpatient PT arranged Anemia of Chronic Disease and Thrombocytopenia - Laboratory evaluation revealed chronic anemia and thrombocytopenia in the setting of malignancy and ongoing systemic therapy. No evidence of gross bleeding was noted Stage 3b Chronic Kidney Disease - She has baseline stage 3b CKD, with creatinine ranging from 1.35-1.64 mg/dL and eGFR 34-44 mL/min/1.73m^2 during admission, with a transient increase in BUN and creatinine noted. Renal indices and electrolytes were monitored throughout hospitalization. Diabetes Mellitus, Steroid-Induced Hyperglycemia - She has a history of type 2 diabetes and was managed with metformin prior to admission. Patient required IV insulin in setting of hyperglycemia likely secondary to high-dose dexamethasone. Patient will continue dexamethasone upon discharge, will continue IV insulin upon discharge. Diabetes education was provided prior to discharge, including insulin administration, sick day management, and blood glucose monitoring. Patient states that her primary caregivers also have diabetes and are very comfortable with diabetes/insulin management. Moderate Protein-Calorie Malnutrition - She met criteria for moderate chronic disease-related malnutrition, with a 49 lb (24%) unintentional weight loss over three years, moderate muscle and fat loss, and insufficient energy intake documented by nutrition assessment. Nutrition recommended frequent small meals, snacks, and supplements to improve intake. Constipation and Fecal Impaction (Resolved) - She developed constipation with fecal impaction and colonic dilation, confirmed on CT abdomen/pelvis, and was managed with bowel care, enemas, and magnesium citrate, with resolution of large stool burden by 07/20. She reported improvement in bowel movements and relief of symptoms following intervention. Neuropsychiatric Symptoms (Resolved) - She experienced hallucinations and confusion attributed to medications and/or hospital delirium, which resolved after discontinuation of pregabalin, as-needed benzodiazepines, and change from hydrocodone-acetaminophen to as-needed oxycodone. *Discharge Planning - Discharge planning was complicated by lack of in-network home health agencies; therapy recommended nursing home facility for best outcome, but she declined SNF and elected to discharge home with22/04 family support and outpatient PT arranged. Family was trained in safe transfers and mobility assistance prior to discharge, and a referral for outpatient PT was placed at her request. Palliative Care and Goals of Care - Palliative care was consulted for goals of care, pain, and psychosocial support. She remains fullcode and has expressed a desire for ongoing treatment. Symptom management and advance care planningwere addressed throughout the admission, with ongoing palliative follow-up recommended. She reported adequate pain control at discharge, requiring only 1-2 doses of oxycodone per day, and declined palliative clinic follow-up if able to continue with her current providers. Discharge Follow Up Recommendations for outpatient labs/diagnostics: Continue Decadron 6 mg every 12 hours until follow-up with radiation oncology. Continue IV insulin as prescribed. Follow-up with oncology on 07/28/2025. Follow-up with PCP in 1 week for continued diabetes management. Follow-up with radiation oncology next week. Continue to carefully monitor blood glucose levels at home. Day of Discharge HPI: Patient seen resting comfortably in bed in no acute distress. No acute complaints or concerns today. States she feels well and eager to be discharged home today. Vital Signs: Temp: [98 ??F (36.7 ??C)-98.2 ??F (36.8 ??C)] 98.2 ??F (36.8 ??C) Heart Rate: [64-84] 73 Resp: [18] 18 BP: (118-133)/(50-61) 128/50 Physical Exam Constitutional: General: She is not in acute distress. Cardiovascular: Rate and Rhythm: Normal rate. Pulses: Normal pulses. Pulmonary: Effort: Pulmonary effort is normal. No respiratory distress. Abdominal: General: There is no distension. Palpations: Abdomen is soft. Tenderness: There is no abdominal tenderness. There is no guarding or rebound. Skin: General: Skin is warm. Neurological: Mental Status: She is alert and oriented to person, place, and time. Psychiatric: Mood and Affect: Mood normal. Behavior: Behavior normal. Pertinent and/or Most Recent Results LAB RESULTS: Lab 07/22/25 0743 07/21/25 0210 SODIUM 136 -- POTASSIUM 4.8 5.6* CHLORIDE 101 -- CO2 27.0 -- ANION GAP 8.0 -- BUN 48.3* -- CREATININE 1.35* -- EGFR 44.0* -- GLUCOSE 275* -- CALCIUM 9.1 -- Brief Urine Lab Results (Last result in the past 365 days) Color Clarity Blood Leuk Est Nitrite Protein CREAT Urine HCG 07/14/25 2243 Yellow Clear Small (1+) Trace Negative 30 mg/dL (1+) Microbiology Results (last 10 days) No results found for the last 240 hours. MRI Abdomen With & Without Contrast Result Date: 07/23/2025 MRI ABDOMEN W WO CONTRAST Date of Exam: 07/23/2025 12:48 AM EDT Indication: elevated liver enzymes - concern for progressive breast cancer. Comparison: CT abdomen pelvis 07/18/2025. Technique: Routine multiplanar/multisequence images of the abdomen were obtained before and after the uneventful administration of Vueway. Findings: Visualized lung bases appear clear without distinct airspace consolidation. No pleural or pericardial effusion. See prior chest CT for additional findings above the diaphragm. No evidence of solid, enhancing liver lesion to suggest active hepatic metastatic disease. Small cyst in the posterior right hepatic lobe (series 5 image 9), with several additional punctate T2 hyperintense lesions also suggestive of cysts, which would correspond to findings on prior CTs. Noevidence of hepatic steatosis. No morphologic changes of chronic liver disease. Gallbladder is unremarkable. Common bile duct is normal caliber for age. No evidence of choledocholithiasis. Mild prominence of the pancreatic duct at the level of the head with otherwise normal caliber duct throughout the remaining pancreas. Normal signal and enhancement the pancreatic parenchyma. No findings of acute pancreatitis. Spleen is mildly enlarged, unchanged. No distinct adrenal nodule. Kidneys are symmetric in size without hydronephrosis. Bilateral nephrolithiasis seen to better advantage on CT. Couple tiny renal cysts. No dilated bowel loops within the [id number]. No pathologically enlarged lymphnodes. No abdominal aortic aneurysm. Major vasculature appears patent. No acute body wall abnormality. Osseous metastasis involving the 12th rib and 12th vertebral body, as well as the posterior ninth rib. Metastatic osseous lesions also seen in the lower lumbar spine. Impression: No convincing evidence of active solid organ or deuce metastatic disease in the abdomen. Scattered small liver lesions most suggestive of cysts or possibly treated disease. Findings of known osseous metastatic disease. Electronically Signed: Adryan Gibson MD 07/23/2025 8:14 AM EDT Workstation ID: [id number] XR Abdomen KUB Result Date: 07/20/2025 XR ABDOMEN KUB Date of Exam: 07/20/2025 11:27 PM EDT Indication: constipation. Comparison: 07/18/2025. Findings: No gross free air or pneumatosis though evaluation is slightly limited due to technique. There is a non obstructive bowel gas pattern. A mild stool burden is present. No suspicious calcifications identified. No acute osseous abnormality identified. Impression: Previously described large stool burden appears to have resolved. Nonobstructive bowel gas pattern. Mild stool burden present. Electronically Signed: Bridgette Campuzano MD 07/20/2025 11:53 PM EDT Workstation ID: [id number] CT Abdomen Pelvis Without Contrast Result Date: 07/19/2025 CT ABDOMEN PELVIS WO CONTRAST Date of Exam: 07/18/2025 6:31 PM EDT Indication: Elevated liver enzymes. The patient has a history of metastatic breast cancer Comparison: 06/10/2025. Technique: Axial CTimages were obtained of the abdomen and pelvis without the administration of contrast. Reconstructed coronal and sagittal images were also obtained. Automated exposure control and iterative construction methods were used. Findings: The exam is limited by noncontrasted technique, especially in evaluating the solid abdominal organs. There are bilateral nonobstructing renal stones. The largest stoneis in the inferior pole of the left kidney measuring 1.0 cm in diameter. This is stable when compared to the recent study. The liver parenchyma appears stable with no obvious mass. The gallbladder, adrenal glands, pancreas, and spleen are normal. The uterus, adnexal structures, and urinary bladder are normal. The patient has a large amount of stool in the rectum and colon. There is rectosigmoid colon fecal impaction. Several of the colonic bowel loops are dilated with stool. There is no pneumatosis or free air. There is no abnormal bowel wall thickening. The appendix is either small in size or surgically absent. The proximal stomach is distended with food material. There are no definite enlarged lymph nodes in the abdomen and pelvis. There are a few atherosclerotic vascular calcificationsin the abdominal aorta and also in the proximal renal arteries. There is mild scarring in the lung bases. There is widespread osteosclerotic metastatic disease. A few of the metastatic lesions withinthe visualized right ribs have an expansile destructive appearance. There is a stable pathologic fracture through the posterior aspect of the inferior endplate of L4 similar to before. The displaced fracture fragment extends into the anterior epidural space. There are compression deformities in thelower thoracic spine best demonstrated at T10. The appearance has not significantly changed from the previous CT. There are also underlying degenerative changes. Impression: 1.Bilateral nonobstructing renal stones. 2.Large amount of stool in the rectum and colon. There is rectosigmoid colon fecal impaction. Several of the colonic bowel loops are dilated with stool. 3.Widespread osteosclerotic metastatic disease. A few of the metastatic lesions within the visualized right ribs have an expansile destructive appearance. There is a stable pathologic fracture through the posterior aspect of the inferior endplate of L4 similar to before. The fracture fragmentis displaced into the anterior epidural space. There are compression deformities in the lower thoracic spine best demonstrated at T10. The appearance has not significantly changed from the previous CT. 4.Additional findings as noted above. The exam is limited by noncontrasted technique, especially in excluding metastatic lesions within the solid abdominal organs. Electronically Signed: Floyd Singleton MD 07/19/2025 8:09 AM EDT Workstation ID: [id number] XR Knee 1 or 2 View Left Result Date: 07/17/2025 XR KNEE 1 OR 2 VW LEFT Date of Exam: 07/17/2025 11:32 AM EDT Indication: Left knee effusion. Comparison: 05/01/2018. FINDINGS: No fracture is identified. Mineralization and alignment appear within normal limits. Soft tissues appear unremarkable. Mild tricompartmental osteophyte formation. Joint spaces appear preserved. Small suprapatellar effusion. 1.Small suprapatellar effusion. 2.Mild tricompartmental osteophyte formation without definite jointspace narrowing. Electronically Signed: Shahriar Chacon 07/17/2025 1:02 PM EDT Workstation ID: [id number] Results for orders placed during the hospital encounter of 07/14/25 Adult Transthoracic Echo Limited W/ Cont if Necessary Per Protocol 07/24/2025 5:01 PM Interpretation Summary ??? Left ventricular systolic function is normal. Left ventricular ejection fraction appears to be 61 - 65%. ??? EF appears unchanged compared to the echo from 07/2024 I have personally reviewed the therapy plans: [x] PT/OT/ ST Therapy Plans Plan for Follow-up of Pending Labs/Results: N/A Discharge Details Discharge Medications PAUSE taking these medications Instructions Start Date metFORMIN 500 MG tablet Wait to take this until your doctor or other care provider tells you to start again. Commonly known as: GLUCOPHAGE 2,500 mg, Oral, Daily Nerlynx 40 MG tablet chemo tablet Wait to take this until your doctor or other care provider tells you to start again. Generic drug: Neratinib 4 tablets, Daily New Medications Instructions Start Date Alcohol Pads 70 % pads Apply 1 alcohol swab to injection site of skin immediately prior to insulin injection. Blood Glucose Monitor System w/Device kit Use to test blood glucose up to 4 Times a Day as needed. dexAMETHasone 6 MG tablet Commonly known as: DECADRON 6 mg, Oral, Every 12 Hours Scheduled dextrose 40 % gel Commonly known as: GLUTOSE 15 g, Oral, Every 15 Minutes PRN famotidine 20 MG tablet Commonly known as: PEPCID 20 mg, Oral, Daily Start Date: July 28, 2025 glucose blood test strip Use to test blood glucose up to 4 Times a Day as needed. insulin glargine 100 UNIT/ML injection Commonly known as: LANTUS, SEMGLEE 25 Units, Subcutaneous, Nightly Insulin Lispro 100 UNIT/ML injection Commonly known as: humaLOG 10 Units, Subcutaneous, 3 Times Daily With Meals Insulin Lispro 100 UNIT/ML injection Commonly known as: humaLOG 2-9 Units, Subcutaneous, 4 Times Daily Before Meals & Nightly Lancets misc Use to test blood glucose up to 4 Times a Day as needed. naloxone 4 MG/0.1ML nasal spray Commonly known as: NARCAN Call 911. Don't prime. Seymour in 1 nostril for overdose. Repeat in 2-3 minutes in other nostril if no or minimal breathing/responsiveness. Continue These Medications Instructions Start Date colestipol 1 g tablet Commonly known as: COLESTID 1 g, 4 Times Daily donepezil 10 MG tablet Commonly known as: Aricept 10 mg, Oral, Nightly erythromycin 5 MG/GM ophthalmic ointment Commonly known as: ROMYCIN APPLY A SMALL AMOUNT AT BEDTIME EYE DROPS OP Apply to eye(s) as directed by provider. Serum Tears lidocaine-prilocaine 2.5-2.5 % cream Commonly known as: EMLA Apply 1 application topically to the appropriate area as directed as needed (45- 60 minutes prior toport access. Cover with saran/plastic wrap). loperamide 2 MG capsule Commonly known as: IMODIUM 2 mg, 4 Times Daily PRN memantine 5 MG tablet Commonly known as: Namenda 5 mg, Oral, 2 Times Daily multivitamin with minerals tablet tablet 1 tablet, Daily ondansetron 8 MG tablet Commonly known as: ZOFRAN 8 mg, Oral, 3 Times Daily PRN oxyCODONE-acetaminophen 7.5-325 MG per tablet Commonly known as: Percocet 1 tablet, Oral, Every 6 Hours PRN Stop These Medications moxifloxacin 0.5 % ophthalmic solution Commonly known as: VIGAMOX No Known Allergies Discharge Disposition: Home or Self Care Diet: Hospital: Diet Order Procedures ??? Diet: Diabetic; Consistent Carbohydrate; Fluid Consistency: Thin (IDDSI 0) Standing Status: Standing Number of Occurrences: 1 Diets:: Diabetic Diabetic Diet:: Consistent Carbohydrate Fluid Consistency:: Thin (IDDSI 0) Activity: As tolerated Restrictions or Other Recommendations: As tolerated CODE STATUS: Code Status and Medical Interventions: CPR (Attempt to Resuscitate); Full Support Ordered at: 07/15/25 0203 Code Status (Patient has no pulse and is not breathing): CPR (Attempt to Resuscitate) Medical Interventions (Patient has pulse or is breathing): Full Support Level Of Support Discussed With: Patient Future Appointments Date Time Provider Department Center 07/28/2025 9:15 AM ACCESS AND LAB DRAW CHAIR [facility] 07/28/2025 10:00 AM Valentina Sadler MD [facility] 07/28/2025 11:30 AM CHAIR 3 [facility] Additional Instructions for the Follow-ups that You Need to Schedule Ambulatory Referral to Home Health As directed Face to Face Visit Date: 07/16/2025 Follow-up provider for Plan of Care?: I treated the patient in an acute care facility and will not continue treatment after discharge. Follow-up provider: LORETTA LANDON [[id number]] Reason/Clinical Findings: Cauda equina syndrome, Breast cancer metastasized to bone Describe mobility limitations that make leaving home difficult: Impaired gait, balance, mobility, and endurance Nursing/Therapeutic Services Requested: Physical Therapy Occupational Therapy PT orders: Therapeutic exercise Gait Training Transfer training Strengthening Home safety assessment Weight Bearing Status: As Tolerated Occupational orders: Activities of daily living Energy conservation Strengthening Cognition Fine motor Home safety assessment Frequency: 1 Week 1 Ambulatory Referral to Physical Therapy for Evaluation & Treatment As directed Specialty needed: Evaluate and treat Follow-up needed: Yes Discharge Follow-up with PCP As directed Currently Documented PCP: Loretta Landon MD PCP Follow Up Details: Follow-up with PCP in 1 week Discharge Follow-up with Specialty: Follow-up with oncology on 07/28/2025. Follow-up with radiationoncology next week. As directed Specialty: Follow-up with oncology on 07/28/2025. Follow-up with radiation oncology next week. CBC and Differential Jul 28, 2025 Manual Differential: No Release to patient: Routine Release Comprehensive metabolic panel Jul 28, 2025 Release to patient: Routine Release CBC and Differential Aug 18, 2025 Manual Differential: No Release to patient: Routine Release Comprehensive metabolic panel Aug 18, 2025 Release to patient: Routine Release Yury Prieto DO 07/27/25 Time Spent on Discharge: I spent 45 minutes on this discharge activity which included: cxgb-oh-zfrgdmxvbpost with the patient, reviewing the data in the system, coordination of the care with the nursing staff as well as consultants, documentation, and entering orders. * Crow Rouse MD - 07/22/2025 4:55 PM EDT DATE OF COMPLETION: 07/22/2025 DIAGNOSIS: Metastatic breast cancer REFERRING: Benny Sadler MD Peter Harris completed radiation therapy today. 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 She completed a course of palliative radiation therapy as detailed below: Treatment Summary Dates of Therapy: 07/16/2025-07/22/2025 Treatment Site: C5-T1 Dose: 20 Gy in 5 fractions of 4 Gy each Technique: Non-opposing photon cosby using 6X energy Treatment Course and Tolerance: She tolerated radiation treatments well. Towards the end of her radiation her weakness began to improve. She did not develop any acute toxicities but was counseled regarding the risk of esophagitis that may follow in the following week. The initial follow up visit will be in 1 month. Peter Parnell knows to call if any problems or concerns develop in the meantime. Electronically signed by: Crow Rouse MD Cc: Loretta Landon MD * Lamar White RN - 07/16/2025 11:29 AM EDT Images from the original note were not included. Peter Parnell (65 y.o. Female) Date of 1960 Social Security Number [id number] [place] [address] Home Phone [facility] Marital Status Admission Date 2025 Admission Type Emergency Admitting Provider Everton Lassiter MD Attending Provider Everton Lassiter MD Department, Room/Bed [address], S386/1 Discharge Date Discharge Disposition Discharge Destination Attending Provider: Everton Lassiter MD Allergies: No Known Allergies Isolation: None Infection: None Code Status: CPR Ht: 170.2 cm (67 ) Wt: 72.1 kg (159 lb) Admission Cmt: None Principal Problem: Cauda equina syndrome [G83.4] Active Insurance as of 2025 Primary Coverage Payor Plan Insurance Group Employer/Plan Group R [facility] [id number] Payor Plan Address Payor Plan Phone Number Payor Plan Fax Number Effective Dates [address] [address] 09/30/2024 - None Entered 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 PAYOR PLAN GROUP # SUBSCRIBER ID Primary: [facility] [id number] Referring Provider Information: EVERTON LASSITER Referral Information: # Visits: 999 Referral Type: Home Health [42] Urgency: Routine Referral Reason: Specialty Services Required Start Date: Jul 16, 2025 End Date: To be determined by Insurer Diagnosis: Cauda equina syndrome (G83.4) Carcinoma of breast metastatic to bone, unspecified laterality (C50.919,C79.51) Refer to Dept: Refer to Provider: Refer to Provider Phone: Refer to Facility: Face to Face Visit Date: 07/16/2025 Follow-up provider for Plan of Care? I treated the patient in an acute care facility and will not continue treatment after discharge. Follow-up provider: LORETTA LANDON [[id number]] Reason/Clinical Findings: Cauda equina syndrome, Breast cancer metastasized to bone Describe mobility limitations that make leaving home difficult: Impaired gait, balance, mobility, and endurance Nursing/Therapeutic Services Requested: Physical Therapy Nursing/Therapeutic Services Requested: Occupational Therapy PT orders: Therapeutic exercise PT orders: Gait Training PT orders: Transfer training PT orders: Strengthening PT orders: Home safety assessment Weight Bearing Status: As Tolerated Occupational orders: Activities of daily living Occupational orders: Energy conservation Occupational orders: Strengthening Occupational orders: Cognition Occupational orders: Fine motor Occupational orders: Home safety assessment Frequency: 1 Week 1 This document serves as a request of services and does not constitute Insurance authorization or approval of services. To determine eligibility, please contact the members Insurance carrier to verifyand review coverage. If you have medical questions regarding this request for services. Please contact [address] at [phone] during normal business hours. Authorizing Provider:Everton Lassiter MD Authorizing Provider's Order Entered By: Lamar White RN 07/16/2025 11:28 AM Electronically signed by: Everton Lassiter MD 07/16/2025 11:28 AM Physical Therapy Notes (most recent note) Roxana Rahman PT at 07/15/25 1033 Version 1 of 1 Patient Name: Peter Parnell : 1960 Today's Date: 07/15/2025 Admit Date: 2025 Visit Dx: ICD-10-CM ICD-9-CM 1. Cauda equina syndrome G83.4 344.60 2. Metastatic malignant neoplasm, unspecified site C79.9 199.1 3. Adenocarcinoma of 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 C50.912 174.9 C78.7 197.7 4. 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 Breast cancer metastasized to bone Encounter for care related to vascular access port Chemotherapy-induced neuropathy Brain metastases Cauda equina syndrome Falls Anemia, chronic disease Thrombocytopenia Stage 3b chronic kidney disease Past Medical History: Diagnosis Date Back problem Bone cancer Mets Breast cancer Diabetes mellitus Drug therapy 12/2013 History of radiation therapy 01/19/2022 L3-L5, sacrum History of radiation therapy 09/26/2022 Whole brain radiotherapy Hx of radiation therapy 04/2014 Kidney stone Liver carcinoma Mets Malignant neoplasm of upper-outer quadrant of left breast in female, estrogen receptor positive 08/22/2016 Neuropathy Radiation Past Surgical History: Procedure Laterality Date BREAST BIOPSY Left BREAST LUMPECTOMY Left 11/2013 CATARACT EXTRACTION Right 02/11/2024 HEAD/NECK LESION/CYST EXCISION Right 12/02/2020 Procedure: WIDE EXCISION MALIGNANT LESION OF SCALP; Surgeon: Evens Wagner MD; Location: [facility]; Service: General; Laterality: Right; LIVER BIOPSY 09/22/2019 OOPHORECTOMY PORTACATH PLACEMENT Right 2019 SKIN FULL THICKNESS GRAFT Right 12/02/2020 Procedure: FULL THICKNESS SKIN GRAFT, RESECTION OF TUMOR OF RIGHT NECK; Surgeon: Evens Wagner MD; Location: [facility]; Service: General; Laterality: Right; General Information Row Name 07/15/25 1106 Physical Therapy Time and Intention Document Type evaluation -KE Mode of Treatment physical therapy;co-treatment -KE Row Name 07/15/25 1106 General Information Patient Profile Reviewed yes -KE Prior Level of Function independent:;all household mobility;bed mobility;ADL's reports recent functional decline leading to limited community mobility; freq falls, 5 the day prior to admit; has been using hurrycane for last week; prior to last month completely ind w/ ADLs and Mob -KE Existing Precautions/Restrictions fall;spinal -KE Barriers to Rehab medically complex;previous functional deficit;physical barrier -KE Row Name 07/15/25 1106 Living Environment Current Living Arrangements home -KE People in Home spouse;other (see comments) spouse works and is not home during the day - Row Name 07/15/25 1106 Home Main Entrance Number of Stairs, Main Entrance four -KE Stair Railings, Main Entrance railing on right side (ascending) - Row Name 07/15/25 1106 Stairs Within Home, Primary Number of Stairs, Within Home, Primary none - Row Name 07/15/25 1106 Cognition Orientation Status (Cognition) oriented x 3 -KE Row Name 07/15/25 1106 Safety Issues/Impairments Affecting Functional Mobility Safety Issues Affecting Function (Mobility) awareness of need for assistance;safety precautions follow-through/compliance;safety precaution awareness;insight into deficits/self-awareness;sequencing abilities -KE Impairments Affecting Function (Mobility) balance;endurance/activity tolerance;strength -KE User Kemp (r) = Recorded By, (t) = Taken By, (c) = Cosigned By Initials Name Provider Type Roxana Zavala, PT Physical Therapist Mobility Row Name 07/15/25 1110 Bed Mobility Bed Mobility supine-sit -KE Supine-Sit Bollinger (Bed Mobility) minimum assist (75% patient effort);1 person assist -KE Assistive Device (Bed Mobility) head of bed elevated;bed rails - Row Name 07/15/25 1110 Sit-Stand Transfer Sit-Stand Bollinger (Transfers) minimum assist (75% patient effort);2 person assist -KE Assistive Device (Sit-Stand Transfers) walker, front-wheeled -KE Comment, (Sit-Stand Transfer) VCs for improving HP; x1 from EOB - Row Name 07/15/25 1110 Gait/Stairs (Locomotion) Bollinger Level (Gait) minimum assist (75% patient effort);2 person assist -KE Assistive Device (Gait) walker, front-wheeled -KE Patient was able to Ambulate yes -KE Distance in Feet (Gait) 9 -KE Deviations/Abnormal Patterns (Gait) bilateral deviations;gait speed decreased;stride length decreased;ataxic;base of support, narrow -KE Bilateral Gait Deviations forward flexed posture;heel strike decreased -KE Left Sided Gait Deviations knee buckling, left side;weight shift ability decreased -KE Number of Steps (Stairs) 1 small ~2 inch step to stand on scale -COLLIN Comment, (Gait/Stairs) Pt demo step to gait pattern with decr weight shifting to L LE, limited heelstrike, slowed pace, and very fwd flexed posture. Pt demo intermittent L knee instability w/ mild buckling noted. Further mobility limited by fatigue. -KE User Kemp (r) = Recorded By, (t) = Taken By, (c) = Cosigned By Initials Name Provider Type Roxana Zavala PT Physical Therapist Obj/Interventions Row Name 07/15/25 1136 Range of Motion Comprehensive General Range of Motion bilateral lower extremity ROM WFL -KE Row Name 07/15/25 1136 Strength Comprehensive (MMT) General Manual Muscle Testing (MMT) Assessment lower extremity strength deficits identified -KE Comment, General Manual Muscle Testing (MMT) Assessment L LE grossly 3-/5; R LE grossly 4/5 -KE Row Name 07/15/25 1136 Balance Balance Assessment sitting static balance;sitting dynamic balance;standing static balance;standing dynamic balance -KE Static Sitting Balance standby assist -KE Dynamic Sitting Balance contact guard -KE Position, Sitting Balance sitting edge of bed -KE Static Standing Balance minimal assist;1-person assist -KE Dynamic Standing Balance minimal assist;2-person assist -KE Position/Device Used, Standing Balance supported;walker, front-wheeled -KE Balance Interventions sitting;standing;sit to stand;supported;static;dynamic -KE Comment, Balance mild posterior lean -KE Row Name 07/15/25 1136 Sensory Assessment (Somatosensory) Sensory Assessment (Somatosensory) LE sensation intact -KE User Kemp (r) = Recorded By, (t) = Taken By, (c) = Cosigned By Initials Name Provider Type Roxana Zavala PT Physical Therapist Goals/Plan Row Name 07/15/25 1142 Bed Mobility Goal 1 (PT) Activity/Assistive Device (Bed Mobility Goal 1, PT) sit to supine/supine to sit -KE Bollinger Level/Cues Needed (Bed Mobility Goal 1, PT) standby assist -COLLIN Time Frame (Bed Mobility Goal 1, PT) short term goal (STG);5 days -COLLIN Progress/Outcomes (Bed Mobility Goal 1, PT) new goal -KE Row Name 07/15/25 1142 Transfer Goal 1 (PT) Activity/Assistive Device (Transfer Goal 1, PT) cyu-dx-cevvj/zhstd-kk-gmk;wvj-qc-mjeuk/durls-em-tuv-KE Bollinger Level/Cues Needed (Transfer Goal 1, PT) contact guard required -KE Time Frame (Transfer Goal 1, PT) retirement goal (LTG);10 days -KE Progress/Outcome (Transfer Goal 1, PT) new goal - Row Name 07/15/25 1142 Gait Training Goal 1 (PT) Activity/Assistive Device (Gait Training Goal 1, PT) gait (walking locomotion);assistive device use;improve balance and speed;walker, rolling -KE Bollinger Level (Gait Training Goal 1, PT) contact guard required -KE Distance (Gait Training Goal 1, PT) 100 -KE Time Frame (Gait Training Goal 1, PT) retirement goal (LTG);10 days -KE Progress/Outcome (Gait Training Goal 1, PT) [facility] - Row Name 07/15/25 1149 Therapy Assessment/Plan (PT) Planned Therapy Interventions (PT) balance training;bed mobility training;home exercise program;gait training;neuromuscular re-education;patient/family education;postural re-education;ROM (range of motion);stair training;strengthening;stretching;transfer training - User Kemp (r) = Recorded By, (t) = Taken By, (c) = Cosigned By Initials Name Provider Type Roxana Zavala, PT Physical Therapist Clinical Impression Row Name 07/15/25 8208 Pain Additional Documentation Pain Scale: FACES Pre/Post-Treatment (Group) - Row Name 07/15/25 9940 Pain Scale: FACES Pre/Post-Treatment Pain: FACES Scale, Pretreatment 0-->no hurt -KE Posttreatment Pain Rating 0-->no hurt -KE Row Name 07/15/25 6489 Plan of Care Review Plan of Care Reviewed With patient - Outcome Evaluation PT eval complete. Pt presents below baseline with generalized weakness, gait abnormalities, balance deficits, and decreased functional endurance warranting IPPT. Pt assisted in amb9 ft w/ FWW MiNAx2. Anticipate need for 24/7 care if pt is to d/c home w/ HHPT, however will continue to monitor progress and family ability to provide. If pt is to d/c home will req wheelchair and FWW. - Row Name 07/15/25 1138 Therapy Assessment/Plan (PT) Patient/Family Therapy Goals Statement (PT) to go home -KE Rehab Potential (PT) limited -KE Criteria for Skilled Interventions Met (PT) yes;meets criteria;skilled treatment is necessary -KE Therapy Frequency (PT) daily -KE Predicted Duration of Therapy Intervention (PT) 10 days -KE Row Name 07/15/25 1138 Vital Signs O2 Delivery Pre Treatment room air -KE O2 Delivery Intra Treatment room air -KE O2 Delivery Post Treatment room air -KE Pre Patient Position Supine -KE Intra Patient Position Standing -KE Post Patient Position Sitting -KE Row Name 07/15/25 1138 Positioning and Restraints Pre-Treatment Position in bed -KE Post Treatment Position chair -KE In Chair notified nsg;reclined;waffle cushion;call light within reach;encouraged to call for assist;exit alarm on;legs elevated -KE User Kemp (r) = Recorded By, (t) = Taken By, (c) = Cosigned By Initials Name Provider Type Roxana Zavala, PT Physical Therapist Outcome Measures Row Name 07/15/25 1143 07/15/25 0820 How much help from another person do you currently need... Turning from your back to your side while in flat bed without using bedrails? 4 -KE 3 -EA Moving from lying on back to sitting on the side of a flat bed without bedrails? 3 -KE 3 -EA Moving to and from a bed to a chair (including a wheelchair)? 3 -KE 2 -EA Standing up from a chair using your arms (e.g., wheelchair, bedside chair)? 3 - KE 3 -EA Climbing 3-5 steps with a railing? 2 -KE 2 -EA To walk in hospital room? 2 -KE 2 -EA AM-PAC 6 Clicks Score (PT) 17 -KE 15 -EA Highest Level of Mobility Goal Stand (1 or More Minutes)-5 -KE Move to Chair/Commode-4 -EA Row Name 07/15/25 0325 How much help from another person do you currently need... Turning from your back to your side while in flat bed without using bedrails? 3 -SM Moving from lying on back to sitting on the side of a flat bed without bedrails? 3 -SM Moving to and from a bed to a chair (including a wheelchair)? 2 -SM Standing up from a chair using your arms (e.g., wheelchair, bedside chair)? 3 -SM Climbing 3-5 steps with a railing? 2 -SM To walk in hospital room? 2 -SM AM-PAC 6 Clicks Score (PT) 15 -SM Highest Level of Mobility Goal Move to Chair/Commode-4 -SM Row Name 07/15/25 1143 Functional Assessment Outcome Measure Options AM-PAC 6 Clicks Basic Mobility (PT) - User Kemp (r) = Recorded By, (t) = Taken By, (c) = Cosigned By Initials Name Provider Type Darshana Major, DERRICK Registered Nurse Roxana Zavala, PT Physical Therapist Eloisa Delatorre RN Registered Nurse Physical Therapy Education Title: PT OT COMMAND AND CONTROL OFFICER Therapies (In Progress) Topic: Physical Therapy (In Progress) Point: Mobility training (Done) Learning Progress Summary Patient Acceptance, E, VU by at 07/15/2025 1143 Point: Home exercise program (Not Started) Learner Progress: Not documented in this visit. Point: Body mechanics (Done) Learning Progress Summary Patient Acceptance, E, VU by COLLIN at 07/15/2025 1143 Point: Precautions (Done) Learning Progress Summary Patient Acceptance, E, VU by COLLIN at 07/15/2025 1143 User Kemp Initials Effective Dates Name Provider Type Viky POLANCO 08/15/23 - Roxana Rahman, PT Physical Therapist PT PT Recommendation and Plan Recommended discharge disposition is based on the functional assessment performed by PT/OT/Speech therapy (as applicable) and may not reflect the medical necessity determined by your provider or services covered by an individual patient's insurance plan or patient resource. Planned Therapy Interventions (PT): balance training, bed mobility training, home exercise program,gait training, neuromuscular re-education, patient/family education, postural re-education, ROM (range of motion), stair training, strengthening, stretching, transfer training Therapy Frequency (PT): daily Outcome Evaluation: PT eval complete. Pt presents below baseline with generalized weakness, gait abnormalities, balance deficits, and decreased functional endurance warranting IPPT. Pt assisted in amb 9 ft w/ FWW MiNAx2. Anticipate need for 24/7 care if pt is to d/c home w/ HHPT, however will contin ue to monitor progress and family ability to provide. If pt is to d/c home will req wheelchair and FWW. Time Calculation: PT Evaluation Complexity History, PT Evaluation Complexity: 3 or more personal factors and/or comorbidities Examination of Body Systems (PT Eval Complexity): total of 3 or more elements Clinical Presentation (PT Evaluation Complexity): evolving Clinical Decision Making (PT Evaluation Complexity): moderate complexity Overall Complexity (PT Evaluation Complexity): moderate complexity PT Charges Row Name 07/15/25 1144 Time Calculation Start Time 1033 -KE PT Received On 07/15/25 -KE PT Goal Re-Cert Due Date 07/25/25 -KE Untimed Charges PT Eval/Re-eval Minutes 65 -KE Total Minutes Untimed Charges Total Minutes 65 -KE Total Minutes 65 -KE User Kemp (r) = Recorded By, (t) = Taken By, (c) = Cosigned By Initials Name Provider Type Roxana Zavala, MARLEN Physical Therapist Therapy Charges for Today Code Description Service Date Service Provider Modifiers Qty [id number] HC-PT EVAL MOD COMPLEXITY 5 07/15/2025 Roxana Rahman PT 1 PT G-Codes Outcome Measure Options: AM-PAC 6 Clicks Basic Mobility (PT) AM-PAC 6 Clicks Score (PT): 17 PT Discharge Summary Anticipated Discharge Disposition (PT): home with 24/7 care, home with home health Roxana Rahman PT 07/15/2025 1145 Occupational Therapy Notes (most recent note) Lenka Payne, OT at 07/15/25 1028 Patient Name: Peter Parnell : 1960 Today's Date: 07/15/2025 Admit Date: 2025 Visit Dx: ICD-10-CM ICD-9-CM 1. Cauda equina syndrome G83.4 344.60 2. Metastatic malignant neoplasm, unspecified site C79.9 199.1 3. Adenocarcinoma of 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 C50.912 174.9 C78.7 197.7 4. 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 Breast cancer metastasized to bone Encounter for care related to vascular access port Chemotherapy-induced neuropathy Brain metastases Cauda equina syndrome Falls Anemia, chronic disease Thrombocytopenia Stage 3b chronic kidney disease Past Medical History: Diagnosis Date Back problem Bone cancer Mets Breast cancer Diabetes mellitus Drug therapy 12/2013 History of radiation therapy 01/19/2022 L3-L5, sacrum History of radiation therapy 09/26/2022 Whole brain radiotherapy Hx of radiation therapy 04/2014 Kidney stone Liver carcinoma Mets Malignant neoplasm of upper-outer quadrant of left breast in female, estrogen receptor positive 08/22/2016 Neuropathy Radiation Past Surgical History: Procedure Laterality Date BREAST BIOPSY Left BREAST LUMPECTOMY Left 11/2013 CATARACT EXTRACTION Right 02/11/2024 HEAD/NECK LESION/CYST EXCISION Right 12/02/2020 Procedure: WIDE EXCISION MALIGNANT LESION OF SCALP; Surgeon: Evens Wagner MD; Location: [facility] OR; Service: General; Laterality: Right; LIVER BIOPSY 09/22/2019 OOPHORECTOMY PORTACATH PLACEMENT Right 2019 SKIN FULL THICKNESS GRAFT Right 12/02/2020 Procedure: FULL THICKNESS SKIN GRAFT, RESECTION OF TUMOR OF RIGHT NECK; Surgeon: Evens Wagner MD; Location: [facility] OR; Service: General; Laterality: Right; General Information Row Name 07/15/25 1128 OT Time and Intention Subjective Information no complaints -TB Document Type evaluation -TB Mode of Treatment occupational therapy;co-treatment -TB Patient Effort good -TB Symptoms Noted During/After Treatment none -TB Row Name 07/15/25 1128 General Information Patient Profile Reviewed yes -TB Prior Level of Function independent:;all household mobility;transfer;bed mobility;ADL's Pt reports sudden decline leading to limited community mobility and recurrent falls x8 the 2 days prior to admit. Pt has been using hurrycane for last week. Prior to last month completely ind w/ ADLs and Mobility -TB Existing Precautions/Restrictions fall;spinal;other (see comments) Metastatic Breast Cancer with brain and spinal lesions -TB Barriers to Rehab medically complex;previous functional deficit;physical barrier -TB Row Name 07/15/25 1128 Occupational Profile Reason for Services/Referral (Occupational Profile) Occupational decline -TB Environmental Supports and Barriers (Occupational Profile) Hurrycane, walk-in shower with built-in seat and grab bars, comfort ht commodes. Pt is retired. Home alone days as spouse works M-F out of town -TB Row Name 07/15/25 1128 Living Environment Current Living Arrangements home -TB People in Home spouse -TB Row Name 07/15/25 1128 Home Main Entrance Number of Stairs, Main Entrance four -TB Stair Railings, Main Entrance railings safe and in good condition -TB Row Name 07/15/25 1128 Stairs Within Home, Primary Number of Stairs, Within Home, Primary none -TB Row Name 07/15/25 1128 Cognition Orientation Status (Cognition) oriented x 3 -TB Row Name 07/15/25 1128 Safety Issues/Impairments Affecting Functional Mobility Safety Issues Affecting Function (Mobility) awareness of need for assistance;insight into deficits/self-awareness;positioning of assistive device;safety precaution awareness;safety precautions follow- through/compliance;sequencing abilities -TB Impairments Affecting Function (Mobility) balance;endurance/activity tolerance;strength;grasp -TB User Kemp (r) = Recorded By, (t) = Taken By, (c) = Cosigned By Initials Name Provider Type Lenka Payne OT Occupational Therapist Mobility/ADL's Row Name 07/15/25 1132 Bed Mobility Bed Mobility supine-sit;scooting/bridging -TB Scooting/Bridging Bollinger (Bed Mobility) standby assist;verbal cues -TB Supine-Sit Bollinger (Bed Mobility) minimum assist (75% patient effort);1 person assist;verbal cues -TB Bed Mobility, Safety Issues impaired trunk control for bed mobility;decreased use of arms for pushing/pulling -TB Assistive Device (Bed Mobility) head of bed elevated;bed rails -TB Comment, (Bed Mobility) Assist to support trunk with transition to EOB sitting -TB Row Name 07/15/25 1132 Transfers Transfers sit-stand transfer;stand-sit transfer -TB Comment, (Transfers) Education and cues for hand placement, sequencing, and safety -TB Row Name 07/15/25 1132 Sit-Stand Transfer Sit-Stand Bollinger (Transfers) minimum assist (75% patient effort);2 person assist;verbal cues-TB Assistive Device (Sit-Stand Transfers) walker, front-wheeled -TB Row Name 07/15/25 1132 Stand-Sit Transfer Stand-Sit Bollinger (Transfers) minimum assist (75% patient effort);2 person assist;verbal cues -TB Assistive Device (Stand-Sit Transfers) walker, front-wheeled -TB Row Name 07/15/25 1132 Functional Mobility Functional Mobility- Ind. Level minimum assist (75% patient effort);2 person assist required;verbalcues required -TB Functional Mobility- Device walker, front-wheeled -TB Functional Mobility- Safety Issues step length decreased;weight-shifting ability decreased;sequencing ability decreased;balance decreased during turns -TB Functional Mobility- Comment Pt is up in room with good effort. Limited by L side weakness LLE>LUE. Able to use RW without knee buckling or LOB. Requires cues and assist for RW sequencing and safety. -TB Patient was able to Ambulate yes - Row Name 07/15/25 1132 Activities of Daily Living BADL Assessment/Intervention upper body dressing;feeding - Row Name 07/15/25 113 Upper Body Dressing Assessment/Training Bollinger Level (Upper Body Dressing) don;pajama/robe;set up - Assistive Devices (Upper Body Dressing) other (see comments) Button/zipper aide -TB Position (Upper Body Dressing) edge of bed sitting -TB Comment, (Upper Body Dressing) AE issued and teaching initiated for ADL retraining - Row Name 07/15/25 113 Self-Feeding Assessment/Training Bollinger Level (Feeding) set up;scoop food and bring to mouth -TB Assistive Devices (Feeding) built-up handle utensils - Position (Feeding) supported sitting -TB Comment, (Feeding) AE issued and pt demonstrates use to promote self-feeding. - User Kemp (r) = Recorded By, (t) = Taken By, (c) = Cosigned By Initials Name Provider Type Lenka Rosales OT Occupational Therapist Obj/Interventions Row Name 07/15/25 113 Sensory Assessment (Somatosensory) Sensory Assessment (Somatosensory) UE sensation intact - Row Name 07/15/25 113 Range of Motion Comprehensive General Range of Motion bilateral upper extremity ROM WFL -TB Comment, General Range of Motion BUE AROM is WFL for self-care - Row Name 07/15/25 113 Strength Comprehensive (MMT) Comment, General Manual Muscle Testing (MMT) Assessment Generalized weakness with L side UE/LE weaker than R side. 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 -TB Row Name 07/15/25 1137 Hand (Therapeutic Exercise) Hand (Therapeutic Exercise) strengthening exercise -TB Hand Strengthening (Therapeutic Exercise) bilateral;coal wheeler strengthening;thumb pinch strengthening;squeeze ball/egg;red;other (see comments) Red for L hand, Blue for R hand -TB Row Name 07/15/25 1137 Motor Skills Therapeutic Exercise hand Foam Block HEP issued and teaching initiated to support self-care. -TB Row Name 07/15/25 1137 Balance Balance Assessment sitting dynamic balance;sit to stand dynamic balance;standing dynamic balance -TB Dynamic Sitting Balance contact guard -TB Position, Sitting Balance sitting edge of bed -TB Sit to Stand Dynamic Balance minimal assist;2-person assist;verbal cues -TB Dynamic Standing Balance minimal assist;2-person assist;verbal cues -TB Position/Device Used, Standing Balance supported;walker, front-wheeled -TB Balance Interventions sitting;standing;sit to stand;supported;dynamic;dynamic reaching;occupation based/functional task -TB Comment, Balance No knee buckling or LOB when up with RW support -TB User Kemp (r) = Recorded By, (t) = Taken By, (c) = Cosigned By Initials Name Provider Type TB Lenka Payne OT Occupational Therapist Goals/Plan Row Name 07/15/25 1148 Transfer Goal 1 (OT) Activity/Assistive Device (Transfer Goal 1, OT) [id number]-[id number]-kn-[id number];toilet;commode, bedside without drop arms -TB Bollinger Level/Cues Needed (Transfer Goal 1, OT) minimum assist (75% or more patient effort);verbal cues required -TB Time Frame (Transfer Goal 1, OT) retirement goal (LTG);1 week -TB Strategies/Barriers (Transfers Goal 1, OT) Progress to BR for transfers as able to support HH distances -TB Progress/Outcome (Transfer Goal 1, OT) goal ongoing -TB Row Name 07/15/25 1148 Self-Feeding Goal 1 (OT) Activity/Device (Self-Feeding Goal 1, OT) built-up handle utensils -TB Bollinger Level/Cues Needed (Self-Feeding Goal 1, OT) modified independence -TB Time Frame (Self-Feeding Goal 1, OT) short term goal (STG);3 days -TB Progress/Outcomes (Self-Feeding Goal 1, OT) goal ongoing -TB Row Name 07/15/25 1148 Strength Goal 1 (OT) Strength Goal 1 (OT) Pt demonstrates Bollinger with Foam Block HEP to support self-care. -TB Time Frame (Strength Goal 1, OT) retirement goal (LTG);1 week -TB Progress/Outcome (Strength Goal 1, OT) goal ongoing -TB User Kemp (r) = Recorded By, (t) = Taken By, (c) = Cosigned By Initials Name Provider Type TB Lenka Payne, OT Occupational Therapist Clinical Impression Row Name 07/15/25 1141 Pain Assessment Additional Documentation Pain Scale: FACES Pre/Post-Treatment (Group) -TB Row Name 07/15/25 1141 Pain Scale: FACES Pre/Post-Treatment Pain: FACES Scale, Pretreatment 0-->no hurt -TB Posttreatment Pain Rating 0-->no hurt -TB Pre/Posttreatment Pain Comment No indication of pain with EOB/OOB activity -TB Row Name 07/15/25 1141 Plan of Care Review Plan of Care Reviewed With patient -TB Progress -- IE -TB Outcome Evaluation OT IE completed. Pt is A/Ox3 and motivated to work with therapy. Presents below her baseline with acute weakness L>R side UE and LE. Pt is up in room with good effort. Able stand and ambulate in room with RW support without L knee buckling or overt LOB. Pt requires cues and assist for RW sequencing and safety. OT issued Foam Block HEP and adapted utensils and button/zip aideto support self-feeding/self-care. OT will follow IP to support safe transition to home. Recommend home with 24/7 assist at d/c and HH OT to determine home safety and modification needs if possible. -TB Row Name 07/15/25 1141 Therapy Assessment/Plan (OT) Rehab Potential (OT) good -TB Criteria for Skilled Therapeutic Interventions Met (OT) yes;meets criteria;skilled treatment is necessary -TB Therapy Frequency (OT) daily -TB Row Name 07/15/25 1141 Therapy Plan Review/Discharge Plan (OT) Anticipated Discharge Disposition (OT) home with 24/7 care;home with home health -TB Row Name 07/15/25 1141 Vital Signs Pre Systolic BP Rehab 123 RN cleared OT -TB Pre Treatment Diastolic BP 69 -TB O2 Delivery Pre Treatment room air -TB Pre Patient Position Supine -TB Intra Patient Position Standing -TB Post Patient Position Sitting -TB Row Name 07/15/25 1141 Positioning and Restraints Pre-Treatment Position in bed -TB Post Treatment Position chair -TB In Chair notified nsg;reclined;call light within reach;encouraged to call for assist;exit alarm on;waffle cushion;legs elevated -TB User Kemp (r) = Recorded By, (t) = Taken By, (c) = Cosigned By Initials Name Provider Type TB Lenka Payne, OT Occupational Therapist Outcome Measures Row Name 07/15/25 1150 How much help from another is currently needed... Putting on and taking off regular lower body clothing? 3 -TB Bathing (including washing, rinsing, and drying) 3 -TB Toileting (which includes using toilet bed todd or urinal) 3 -TB Putting on and taking off regular upper body clothing 3 -TB Taking care of personal grooming (such as brushing teeth) 3 -TB Eating meals 3 -TB AM-PAC 6 Clicks Score (OT) 18 -TB Row Name 07/15/25 1143 07/15/25 0820 How much help from another person do you currently need... Turning from your back to your side while in flat bed without using bedrails? 4 -KE 3 -EA Moving from lying on back to sitting on the side of a flat bed without bedrails? 3 -KE 3 -EA Moving to and from a bed to a chair (including a wheelchair)? 3 -KE 2 -EA Standing up from a chair using your arms (e.g., wheelchair, bedside chair)? 3 - KE 3 -EA Climbing 3-5 steps with a railing? 2 -KE 2 -EA To walk in hospital room? 2 -KE 2 -EA AM-PAC 6 Clicks Score (PT) 17 -KE 15 -EA Highest Level of Mobility Goal Stand (1 or More Minutes)-5 -KE Move to Chair/Commode-4 -EA Row Name 07/15/25 7005 How much help from another person do you currently need... Turning from your back to your side while in flat bed without using bedrails? 3 -SM Moving from lying on back to sitting on the side of a flat bed without bedrails? 3 -SM Moving to and from a bed to a chair (including a wheelchair)? 2 -SM Standing up from a chair using your arms (e.g., wheelchair, bedside chair)? 3 -SM Climbing 3-5 steps with a railing? 2 -SM To walk in hospital room? 2 -SM AM-PAC 6 Clicks Score (PT) 15 -SM Highest Level of Mobility Goal Move to Chair/Commode-4 -SM Row Name 07/15/25 1150 07/15/25 1143 Functional Assessment Outcome Measure Options AM-PAC 6 Clicks Daily Activity (OT) -KRISTINE AM-PAC 6 Clicks Basic Mobility (PT)-COLLIN User Kemp (r) = Recorded By, (t) = Taken By, (c) = Cosigned By Initials Name Provider Type Lenka Payne OT Occupational Therapist Darshana Major, RN Registered Nurse Roxana Zavala, PT Physical Therapist Eloisa Delatorre, DERRICK Registered Nurse Occupational Therapy Education Title: PT OT COMMAND AND CONTROL OFFICER Therapies (In Progress) Topic: Occupational Therapy (In Progress) Point: ADL training (Done) Learning Progress Summary Patient Acceptance, E,D, VU,DU,NR by at 07/15/2025 1150 Point: Home exercise program (Done) Learning Progress Summary Patient Acceptance, E,D, VU,DU,NR by at 07/15/2025 1150 Point: Precautions (Done) Learning Progress Summary Patient Acceptance, E,D, VU,DU,NR by at 07/15/2025 1150 User Kemp Initials Effective Dates Name Provider Type Discipline 04/09/23 - Lenka Payne OT Occupational Therapist OT OT Recommendation and Plan Recommended discharge disposition is based on the functional assessment performed by PT/OT/Speech therapy (as applicable) and may not reflect the medical necessity determined by your provider or services covered by an individual patient's insurance plan or patient resource. Therapy Frequency (OT): daily Plan of Care Review Plan of Care Reviewed With: patient Progress: (IE) Outcome Evaluation: OT IE completed. Pt is A/Ox3 and motivated to work with therapy. Presents belowher baseline with acute weakness L>R side UE and LE. Pt is up in room with good effort. Able stand and ambulate in room with RW support without L knee buckling or overt LOB. Pt requires cues and assist for RW sequencing and safety. OT issued Foam Block HEP and adapted utensils and button/zip aide to support self-feeding/self-care. OT will follow IP to support safe transition to home. Recommendhome with 24/7 assist at d/c and HH OT to determine home safety and modification needs if possible. Time Calculation: Evaluation Complexity (OT) Review Occupational Profile/Medical/Therapy History Complexity: expanded/moderate complexity Assessment, Occupational Performance/Identification of Deficit Complexity: 3-5 performance deficits Clinical Decision Making Complexity (OT): detailed assessment/moderate complexity Overall Complexity of Evaluation (OT): moderate complexity Time Calculation- OT Row Name 07/15/25 1152 Time Calculation- OT OT Start Time 1028 -TB OT Received On 07/15/25 -TB OT Goal Re-Cert Due Date 07/25/25 -TB Timed Charges 96990 - OT Therapeutic Exercise Minutes 12 -TB 15581 - OT Self Care/Mgmt Minutes 18 -TB Untimed Charges OT Eval/Re-eval Minutes 40 -TB Total Minutes Timed Charges Total Minutes 30 -TB Untimed Charges Total Minutes 40 -TB Total Minutes 70 -TB User Kemp (r) = Recorded By, (t) = Taken By, (c) = Cosigned By Initials Name Provider Type TB Lenka Payne OT Occupational Therapist Therapy Charges for Today Code Description Service Date Service Provider Modifiers Qty 94269442349 HC OT THER PROC EA 15 MIN 07/15/2025 Lenka Payne OT GO 1 96689638511 HC OT SELF CARE/MGMT/TRAIN EA 15 MIN 07/15/2025 Lenka Payne OT GO 1 [id number] HC OT EVAL MOD COMPLEXITY 3 07/15/2025 Lenka Payne OT GO 1 Lenka Payne OT 07/15/2025 1153 documented in this encounter Discharge Instructions * Discharge Instructions* Korin Arndt RN - 07/27/2025 3:46 PM EDT -Continue Decadron 6 mg every 12 hours until follow-up with radiation oncology. -Continue IV insulin as prescribed. Follow-up with oncology on 07/28/2025. -Follow-up with PCP in 1 week for continued diabetes management. -Follow-up with radiation oncology next week. -Continue to carefully monitor blood glucose levels at home. * Discharge Instr - Lab* Lorena Adams - 07/27/2025 2:14 PM EDT The staff of radiation oncology will contact patient * Attachments The following attachments cannot be sent through Care Everywhere. * How to Prevent Falls in the Home for Adults ([place]) * Malnutrition Adult Dniv-mw-Aekr ([place]) * Blood Glucose Monitoring Adult ([place]) * Continuous Glucose Monitoring Adult ([place]) * Dexamethasone Tablets ([place]) * Famotidine Tablets ([place]) * Insulin Glargine Injection (Prefilled Pen) ([place]) * Insulin Lispro Injection (Prefilled Pen) ([place]) * Naloxone Nasal Seymour ([place]) * Dextrose Injection ([place]) documented in this encounter Medications at Time of Discharge Alcohol Swabs (Alcohol Pads) 70 % pads Apply 1 alcohol swab to injection site of skin immediately prior to insulin injection. 100 each 12 08/10/2025 9:59 AM EST 07/27/2025 Blood Glucose Monitoring Suppl (Blood Glucose Monitor System) w/Device kit Use to test blood sugar up to 4 Times a Day as needed. 1 each 07/27/2025 3:43 PM EDT 07/27/2025 Carboxymethylcel lulose Sodium (EYE DROPS OP) Apply to eye(s) as directed by provider. Serum Tears colestipol (COLESTID) 1 g tablet Take 1 tablet by mouth 4 (Four) Times a Day. dextrose (GLUTOSE) 40 % gel Take 15 g by mouth Every 15 (Fifteen) Minutes As Needed for Low Blood Sugar (Blood sugar less than 70) for up to 30 days. 30 each 07/27/2025 donepezil (Aricept) 10 MG tablet Take 1 tablet by mouth Every Night. 30 tablet 5 08/10/2025 9:59 AM EST 05/17/2025 erythromycin (ROMYCIN) 5 MG/GM ophthalmic ointment APPLY A SMALL AMOUNT AT BEDTIME 10/14/2023 famotidine (PEPCID) 20 MG tablet Take 1 tablet by mouth Daily for 30 days. 30 tablet 07/27/2025 3:43 PM EDT 07/28/2025 glucose blood test strip Use to test blood sugar up to 4 Times a Day as needed. 100 each 12 07/27/2025 3:43 PM EDT 07/27/2025 insulin glargine (LANTUS, SEMGLEE) 100 UNIT/ML injection Inject 25 Units under the skin into the appropriate area as directed Every Night for 30 days. 10 mL 07/27/2025 3:43 PM EDT 07/27/2025 Insulin Lispro (humaLOG) 100 UNIT/ML injection Inject 10 Units under the skin into the appropriate area as directed 3 (Three) Times a Day With Meals. 10 mL 07/27/2025 3:43 PM EDT 07/27/2025 Insulin Syringe-Needle U-100 (BD Insulin Syringe Ultrafine) 31G X 5/16 1 ML misc Inject 1 each under the skin into the appropriate area as directed 4 (Four) Times a Day As Needed (for insulin injections). 100 each 12 07/27/2025 3:43 PM EDT 07/27/2025 Lancets misc Use to test blood sugar up to 4 Times a Day as needed. 100 each 12 07/27/2025 3:43 PM EDT 07/27/2025 lidocaine-priloc gustavo (EMLA) 2.5-2.5 % cream Apply 1 application topically to the appropriate area as directed as needed (45-60 minutes prior to port access. Cover with saran/plastic wrap). 30 g 5 04/19/2025 12:22 PM EDT 01/27/2025 loperamide (IMODIUM) 2 MG capsule Take 1 capsule by mouth 4 (Four) Times a Day As Needed for Diarrhea. memantine (Namenda) 5 MG tablet Take 1 tablet by mouth 2 (Two) Times a Day. 60 tablet 5 08/10/2025 9:59 AM EST 05/17/2025 metFORMIN (GLUCOPHAGE) 500 MG tablet Take 5 tablets by mouth Daily. 450 tablet 1 10/18/2022 8:45 AM EST 09/18/2022 multivitamin with minerals tablet tablet Take 1 tablet by mouth Daily. naloxone (NARCAN) 4 MG/0.1ML nasal spray Call 911. Don't prime. Seymour in 1 nostril for overdose. Repeat in 2-3 minutes in other nostril if no or minimal breathing/respons iveness. 2 each 07/27/2025 3:43 PM EDT 07/27/2025 ondansetron (ZOFRAN) 8 MG tabletIndication s:Malignant neoplasm metastatic to bone,Adenocarcin krystian of 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,Malignant neoplasm of upper-outer quadrant of left breast in female, estrogen receptor positive Take 1 tablet by mouth 3 (Three) Times a Day As Needed for Nausea or Vomiting. 30 tablet 5 10/22/2024 11:25 AM EST 04/13/2024 dexAMETHasone (DECADRON) 6 MG tablet Take 1 tablet by mouth Every 12 (Twelve) Hours for 14 days. 28 tablet 07/27/2025 3:43 PM EDT 07/27/2025 5 oxyCODONE-acetam inophen (Percocet) 7.5-325 MG per tabletIndication s:Spinal cord mass Take 1 tablet by mouth Every 6 (Six) Hours As Needed for Moderate Pain for up to 3 days. 12 tablet 07/27/2025 3:43 PM EDT 07/27/2025 5 Neratinib (Nerlynx) 40 MG tablet chemo tablet Take 4 tablets by mouth Daily. 5 documented as of this encounter Progress Notes * Karen Ortiz MD - 07/27/2025 11:28 AM EDT Palliative Care Daily Progress Note Referring: Meaghan Guerirer C/C: Pain doing well S: Medical record reviewed. Events noted. Reports plans for discharge. Wants home health even at paying out of pocket. No bowel or bladder issues. Please with progress. Plans further XRT as outpt forbrain mets. Reports adequate supply of opioid at home for now. And plans further f/u with onc who has been providing Rx. Not interested in palliative clinic at this time if able to continue as before. Requiring only 1-2 doses oxy per day. ROS: Denied pain when seen. No meds since yesterday. Denied SOA Reports no problems with bowel or bladder. Though LLE not normal, movement better than on admit. O: Code Status: Code Status and Medical Interventions: CPR (Attempt to Resuscitate); Full Support Ordered at: 07/15/25 0203 Code Status (Patient has no pulse and is not breathing): CPR (Attempt to Resuscitate) Medical Interventions (Patient has pulse or is breathing): Full Support Level Of Support Discussed With: Patient Advanced Directives: Advance Directive Status: Patient does not have advance directive Goals of Care: Ongoing. Palliative Performance Scale Score: 40% BP 128/50 (BP Location: Right arm, Patient Position: Lying) Pulse 73 Temp 98.2 ??F (36.8 ??C) (Oral) Resp 18 Ht 170.2 cm (67 ) Wt 76 kg (167 lb 9.6 oz) SpO2 98% BMI 26.25 kg/m?? Intake/Output Summary (Last 24 hours) at 07/27/2025 1128 Last data filed at 07/27/2025 0852 Gross per 24 hour Intake 800 ml Output 1750 ml Net -950 ml Physical Exam: General Appearance: Alert, cooperative, NAD HEENT: NC/AT, EOMI, anicteric, MMM, face relaxed Neck: supple, trachea midline, no JVD Lungs: CTA bilat, diminished in bases; respirations regular, even and unlabored Heart: RRR, normal S1 and S2, no M/R/G Abdomen: Normal bowel sounds, soft, nontender, nondistended G/U: Deferred MSK/Extremities: No clubbing , cyanosis or edema, No wasting Pulses: Pulses palpable and equal bilaterally Skin: Warm, dry, no mottling Neurologic: A/Ox3, cooperative, moves extremities x 4(L weaker than R), no tremor, nl tone Psych: Calm, appropriate Current Medications: Current Facility-Administered Medications: aluminum-magnesium hydroxide-simethicone (MAALOX MAX) 400-400-40 MG/5ML suspension 15 mL, 15 mL, Oral, Q6H PRN, Meaghan Guerrier MD sennosides-docusate (PERICOLACE) 8.6-50 MG per tablet 2 tablet, 2 tablet, Oral, BID, 2 tablet at 07/24/25 0858 AND polyethylene glycol (MIRALAX) packet 17 g, 17 g, Oral, Daily, 17 g at 07/24/25 0857 AND bisacodyl (DULCOLAX) EC tablet 5 mg, 5 mg, Oral, Daily PRN AND bisacodyl (DULCOLAX) suppository 10 mg, 10 mg, Rectal, Daily PRN, Everton Lassiter MD Calcium Replacement - Follow Nurse / BPA Driven Protocol, , Not Applicable, PRN, Meaghan Guerrier MD dexAMETHasone (DECADRON) tablet 6 mg, 6 mg, Oral, Q12H, Yury Prieto DO dextrose (D50W) (25 g/50 mL) IV injection 25 g, 25 g, Intravenous, Q15 Min PRN, Meaghan Guerrier MD dextrose (GLUTOSE) oral gel 15 g, 15 g, Oral, Q15 Min PRN, Meaghan Guerrier MD donepezil (ARICEPT) tablet 10 mg, 10 mg, Oral, Nightly, Everton Lassiter MD, 10 mg at 07/26/252027 famotidine (PEPCID) tablet 20 mg, 20 mg, Oral, Daily, Arline Walker, PharmD, 20 mg at 07/27/25 0836 glucagon (GLUCAGEN) injection 1 mg, 1 mg, Intramuscular, Q15 Min PRN, Meaghan Guerrier MD heparin (porcine) 5000 UNIT/ML injection 5,000 Units, 5,000 Units, Subcutaneous, Q8H, Everton Lassiter MD, 5,000 Units at 07/27/25 0507 HYDROmorphone (DILAUDID) injection 0.25 mg, 0.25 mg, Intravenous, Q2H PRN, Karen Ortiz MD insulin glargine (LANTUS, SEMGLEE) injection 30 Units, 30 Units, Subcutaneous, Nightly, Foster Patel MD, 30 Units at 10/27/25 2028 Insulin Lispro (humaLOG) injection 14 Units, 14 Units, Subcutaneous, TID With Meals, Carl Shook MD, 14 Units at 07/27/25 0835 Insulin Lispro (humaLOG) injection 2-9 Units, 2-9 Units, Subcutaneous, 4x Daily AC & at Bedtime, Foster Patel MD, 4 Units at 07/27/25 0835 Magnesium Cardiology Dose Replacement - Follow Nurse / BPA Driven Protocol, , Not Applicable, PRN, Meaghan Guerrier MD memantine (NAMENDA) tablet 5 mg, 5 mg, Oral, BID, Everton Lassiter MD, 5 mg at 07/27/25 0837 [DISCONTINUED] morphine injection 2 mg, 2 mg, Intravenous, Q4H PRN AND naloxone (NARCAN) injection 0.4 mg, 0.4 mg, Intravenous, Q5 Min PRN, Meaghan Guerrier MD [id number] b (NEOSPORIN) ointment 1 Application, 1 Application, Topical, Q8H PRN, Foster Patel MD, 1 Application at 07/25/25 1718 nitroglycerin (NITROSTAT) SL tablet 0.4 mg, 0.4 mg, Sublingual, Q5 Min PRN, Meaghan Guerrier MD ondansetron (ZOFRAN) injection 4 mg, 4 mg, Intravenous, Q6H PRN, Meaghan Guerrier MD oxyCODONE (ROXICODONE) immediate release tablet 7.5 mg, 7.5 mg, Oral, Q6H PRN, Karen Ortiz MD, 7.5 mg at 07/27/25 0018 Phosphorus Replacement - Follow Nurse / BPA Driven Protocol, , Not Applicable, PRNJason Jennifer, MD Potassium Replacement - Follow Nurse / BPA Driven Protocol, , Not Applicable, Jason SIMPSON Jennifer, MD sodium chloride 0.9 % flush 10 mL, 10 mL, Intravenous, Q12H, Meaghan Guerrier MD, 10 mL at 07/27/25 0838 sodium chloride 0.9 % flush 10 mL, 10 mL, Intravenous, PRN, Meaghan Guerrier MD sodium chloride 0.9 % infusion 40 mL, 40 mL, Intravenous, PRN, Meaghan Guerrier MD Labs: Results from last 7 days Lab Units 07/22/25 0743 07/21/25 0210 07/20/25 1222 SODIUM mmol/L 136 -- 139 POTASSIUM mmol/L 4.8 < > 3.3* CHLORIDE mmol/L 101 -- 104 CO2 mmol/L 27.0 -- 21.2* BUN mg/dL 48.3* -- 44.3* CREATININE mg/dL 1.35* -- 1.37* CALCIUM mg/dL 9.1 -- 9.6 BILIRUBIN mg/dL -- -- 0.5 ALK PHOS U/L -- -- 198* ALT (SGPT) U/L -- -- 182* AST (SGOT) U/L -- -- 132* GLUCOSE mg/dL 275* -- 193* < > = values in this interval not displayed. Imaging Results (Last 72 Hours) No results found for the last 72 hours. Diagnostics: Reviewed A: Spinal cord mass Breast cancer metastasized to bone Falls Anemia, chronic disease Thrombocytopenia Stage 3b chronic kidney disease Moderate protein-calorie malnutrition Impression: Metastatic breast CA Intraspinal mass Cspine per MRI Anemia CKD Symptoms: Weakness Urinary retention- ?neuro bladder Debility P: No palliative medication needs for discharge. Please call for any additional needs prior to discharge. Karen Ortiz MD, 07/27/2025, 11:28 EDT * Lita Luis, JEB - 07/26/2025 12:57 PM EDT RADIATION ONCOLOGY PROGRESS NOTE See note dated 07/20/2025 Following additional conversation at bedside with patient, the patient was agreeable to course of radiation via [facility] with Dr. Ruose to her multiple enlarging intracranial metastases, See MRI brain dated 2025. Informed consent was obtained. We discussed the role of radiation and the acute and late toxicity profile of radiation therapy. Plan for: CT simulation for treatment planning today, 07/26/2025. Treatment will start shortly thereafter, on an outpatient basis as she is planned for discharge tomorrow, 07/27/2025. * Foster Patel MD - 07/26/2025 10:27 AM EDT Images from the original note were not included. [facility] PROGRESS NOTE Patient Name: Peter Parnell : 1960 Date of Admission: 2025 Primary Care Physician: Loretta Landon MD Subjective Subjective CC: L weakness/falls HPI: saw patient this AM. Feels ok. Per nursing when tried to get up needed more help today/2 people. Per PT patient tends to wax and wane with her weakness. Wants discharge tomorrow because that's when family will be here. Objective Objective Vital Signs: Temp: [97.8 ??F (36.6 ??C)-98.3 ??F (36.8 ??C)] 97.9 ??F (36.6 ??C) Heart Rate: [66-83] 70 Resp: [16-18] 18 BP: (113-127)/(46-76) 124/65 Physical Exam: Constitutional: No acute distress, awake, alert, chronically ill appearing, sitting up in bed HENT: NCAT, mucous membranes moist Respiratory: Clear to auscultation bilaterally, respiratory effort normal Cardiovascular: RRR, no murmurs, rubs, or gallops Gastrointestinal: Positive bowel sounds, soft, nontender, nondistended Musculoskeletal: trace bilateral LE edema Psychiatric: Appropriate affect, cooperative Neurologic: Oriented x 3, RIZVI, speech clear Skin: No rashes Results Reviewed: LAB RESULTS: Lab 07/22/25 0743 07/21/25 0210 07/20/25 1222 SODIUM 136 -- 139 POTASSIUM 4.8 5.6* 3.3* CHLORIDE 101 -- 104 CO2 27.0 -- 21.2* ANION GAP 8.0 -- 13.8 BUN 48.3* -- 44.3* CREATININE 1.35* -- 1.37* EGFR 44.0* -- 43.2* GLUCOSE 275* -- 193* CALCIUM 9.1 -- 9.6 Lab 07/20/25 1222 TOTAL PROTEIN 7.1 ALBUMIN 3.7 GLOBULIN 3.4 ALT (SGPT) 182* AST (SGOT) 132* BILIRUBIN 0.5 ALK PHOS 198* Brief Urine Lab Results (Last result in the past 365 days) Color Clarity Blood Leuk Est Nitrite Protein CREAT Urine HCG 07/14/25 2243 Yellow Clear Small (1+) Trace Negative 30 mg/dL (1+) Microbiology Results Abnormal None No radiology results from the last 24 hrs Results for orders placed during the hospital encounter of 07/14/25 Adult Transthoracic Echo Limited W/ Cont if Necessary Per Protocol 07/24/2025 5:01 PM Interpretation Summary Left ventricular systolic function is normal. Left ventricular ejection fraction appears to be 61 -65%. EF appears unchanged compared to the echo from 07/2024 I have personally reviewed the therapy plans: [] PT/OT/ ST Therapy Plans Current medications: Scheduled Meds:dexAMETHasone, 6 mg, Oral, Q6H donepezil, 10 mg, Oral, Nightly famotidine, 20 mg, Oral, Daily heparin (porcine), 5,000 Units, Subcutaneous, Q8H insulin glargine, 30 Units, Subcutaneous, Nightly Insulin Lispro, 14 Units, Subcutaneous, TID With Meals insulin lispro, 2-9 Units, Subcutaneous, 4x Daily AC & at Bedtime memantine, 5 mg, Oral, BID senna-docusate sodium, 2 tablet, Oral, BID And polyethylene glycol, 17 g, Oral, Daily sodium chloride, 10 mL, Intravenous, Q12H Continuous Infusions: PRN Meds:. aluminum-magnesium hydroxide-simethicone senna-docusate sodium AND polyethylene glycol AND bisacodyl AND bisacodyl Calcium Replacement - Follow Nurse / BPA Driven Protocol dextrose dextrose glucagon (human recombinant) HYDROmorphone Magnesium Cardiology Dose Replacement - Follow Nurse / BPA Driven Protocol [DISCONTINUED] Morphine AND naloxone rlnuhenh-wqpeitqyln-innilckwk b nitroglycerin ondansetron oxyCODONE Phosphorus Replacement - Follow Nurse / BPA Driven Protocol Potassium Replacement - Follow Nurse / BPA Driven Protocol sodium chloride sodium chloride Assessment & Plan Assessment & Plan Active Hospital Problems Diagnosis POA 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 Brief Hospital Course to date: Peter Parnell is a 65 y.o. female w stage IV breast cancer since 2019, DM2, anemia, who presented for evaluation of difficulty walking, multiple falls. MRI cervical spine consistent with intramedullary mass within the spinal cord at C6- 7 compatible with metastatic disease and is the likely source of patient's symptoms. Neurosurgery, oncology, radiation oncology consulted. Started on radiation treatment on 07/16. Stage IV breast cancer with mets to the brain, bone, spine, liver T12 lesion w cord compression C6-7 intramedullary metastasis -Neurosurgery followed; nonoperative management recommended -Oncology consulted -Neurochecks every 4 hours -Continue decadron every 6 hours per discussion with radiation oncology -PRN pain control, symptom management -PT/OT recs SNF now but patient wishes for home with HH and with family helping -Here through the weekend at least per discussion w Rad/Onc given risk of spinal swelling w radiation. -Radiation oncology followed. completed XRT Constipation w fecal impaction -s/p BM Hallucinations, potentially medication-induced +/- hospital delirium, now resolved -pain medications adjusted Pancytopenia in setting of malignancy and neratinib, improved -Monitor Hepatocellular transaminitis -MRI abd showed cysts in liver Abnormal CT -B renal stones, fecal impaction noted, R rib mets, liver without masses CKD stage IIIb -monitor DM2 -increased lantus to 30 units. Sugars will need to be monitored closely when decadron weaned Memory impairment -Donepezil, Namenda resumed Expected Discharge Location and Transportation: , 22/04 care, multiple family members to help at home but will not be available until Saturday, wishes for d/c on Saturday Expected Discharge Expected Discharge Date: 07/27/2025; Expected Discharge Time: VTE Prophylaxis: Pharmacologic & mechanical VTE prophylaxis orders are present. AM-PAC 6 Clicks Score (PT): 13 (07/26/25 5182) CODE STATUS: Code Status and Medical Interventions: CPR (Attempt to Resuscitate); Full Support Ordered at: 07/15/25 0203 Code Status (Patient has no pulse and is not breathing): CPR (Attempt to Resuscitate) Medical Interventions (Patient has pulse or is breathing): Full Support Level Of Support Discussed With: Patient Foster Patel MD 07/26/25 * Foster Patel MD - 07/25/2025 11:40 AM EDT Images from the original note were not included. [facility] PROGRESS NOTE Patient Name: Peter Parnell : 1960 Date of Admission: 2025 Primary Care Physician: Loretta Landon MD Subjective Subjective CC: L weakness/falls HPI: saw patient this AM. Walked with PT with walker from bathroom, doing ok, obviously still some weakness in the LLE/dragging it a little and requires 1 assist. Objective Objective Vital Signs: Temp: [97.6 ??F (36.4 ??C)-97.9 ??F (36.6 ??C)] 97.8 ??F (36.6 ??C) Heart Rate: [68-79] 68 Resp: [16-18] 16 BP: (111-135)/(46-59) 115/46 Physical Exam: Constitutional: No acute distress, awake, alert, chronically ill appearing, walked from bathroom tochair with walker with PT HENT: NCAT, mucous membranes moist Respiratory: Clear to auscultation bilaterally, respiratory effort normal Cardiovascular: RRR, no murmurs, rubs, or gallops Gastrointestinal: Positive bowel sounds, soft, nontender, nondistended Musculoskeletal: trace bilateral LE edema Psychiatric: Appropriate affect, cooperative Neurologic: Oriented x 3, RIZVI, speech clear Skin: No rashes Results Reviewed: LAB RESULTS: Lab 07/19/25 0634 WBC 5.03 HEMOGLOBIN 8.2* HEMATOCRIT 26.3* PLATELETS 108* NEUTROS ABS 4.30 IMMATURE GRANS (ABS) 0.04 LYMPHS ABS 0.36* MONOS ABS 0.33 EOS ABS 0.00 MCV 82.4 Lab 07/22/25 0743 07/21/25 0210 07/20/25 1222 07/19/25 0634 SODIUM 136 -- 139 140 POTASSIUM 4.8 5.6* 3.3* 3.9 CHLORIDE 101 -- 104 106 CO2 27.0 -- 21.2* 19.6* ANION GAP 8.0 -- 13.8 14.4 BUN 48.3* -- 44.3* 51.1* CREATININE 1.35* -- 1.37* 1.50* EGFR 44.0* -- 43.2* 38.8* GLUCOSE 275* -- 193* 223* CALCIUM 9.1 -- 9.6 9.4 Lab 07/20/25 1222 07/19/25 0634 TOTAL PROTEIN 7.1 6.8 ALBUMIN 3.7 3.6 GLOBULIN 3.4 3.2 ALT (SGPT) 182* 131* AST (SGOT) 132* 108* BILIRUBIN 0.5 0.4 ALK PHOS 198* 186* Brief Urine Lab Results (Last result in the past 365 days) Color Clarity Blood Leuk Est Nitrite Protein CREAT Urine HCG 07/14/25 2243 Yellow Clear Small (1+) Trace Negative 30 mg/dL (1+) Microbiology Results Abnormal None No radiology results from the last 24 hrs Results for orders placed during the hospital encounter of 07/14/25 Adult Transthoracic Echo Limited W/ Cont if Necessary Per Protocol 07/24/2025 5:01 PM Interpretation Summary Left ventricular systolic function is normal. Left ventricular ejection fraction appears to be 61 -65%. EF appears unchanged compared to the echo from 07/2024 I have personally reviewed the therapy plans: [] PT/OT/ ST Therapy Plans Current medications: Scheduled Meds:dexAMETHasone, 6 mg, Oral, Q6H donepezil, 10 mg, Oral, Nightly famotidine, 20 mg, Oral, Daily heparin (porcine), 5,000 Units, Subcutaneous, Q8H insulin glargine, 30 Units, Subcutaneous, Nightly Insulin Lispro, 14 Units, Subcutaneous, TID With Meals insulin lispro, 2-9 Units, Subcutaneous, 4x Daily AC & at Bedtime memantine, 5 mg, Oral, BID senna-docusate sodium, 2 tablet, Oral, BID And polyethylene glycol, 17 g, Oral, Daily sodium chloride, 10 mL, Intravenous, Q12H Continuous Infusions: PRN Meds:. aluminum-magnesium hydroxide-simethicone senna-docusate sodium AND polyethylene glycol AND bisacodyl AND bisacodyl Calcium Replacement - Follow Nurse / BPA Driven Protocol dextrose dextrose glucagon (human recombinant) HYDROmorphone Magnesium Cardiology Dose Replacement - Follow Nurse / BPA Driven Protocol [DISCONTINUED] Morphine AND naloxone nitroglycerin ondansetron oxyCODONE Phosphorus Replacement - Follow Nurse / BPA Driven Protocol Potassium Replacement - Follow Nurse / BPA Driven Protocol sodium chloride sodium chloride Assessment & Plan Assessment & Plan Active Hospital Problems Diagnosis POA 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 Brief Hospital Course to date: Peter Parnell is a 65 y.o. female w stage IV breast cancer since 2019, DM2, anemia, who presented for evaluation of difficulty walking, multiple falls. MRI cervical spine consistent with intramedullary mass within the spinal cord at C6- 7 compatible with metastatic disease and is the likely source of patient's symptoms. Neurosurgery, oncology, radiation oncology consulted. Started on radiation treatment on 07/16. Stage IV breast cancer with mets to the brain, bone, spine, liver T12 lesion w cord compression C6-7 intramedullary metastasis -Radiation oncology following, plan for radiation on 07/16 and again on 07/19 -Neurosurgery followed; nonoperative management recommended -Oncology consulted -Neurochecks every 4 hours -Continue decadron every 6 hours per discussion with radiation oncology -PRN pain control, symptom management -PT/OT recs SNF now but patient wishes for home with HH and with family helping -Here through the weekend at least per discussion w Rad/Onc given risk of spinal swelling w radiation. -completed XRT Constipation w fecal impaction -s/p BM Hallucinations, potentially medication-induced +/- hospital delirium, now resolved -pain medications adjusted Pancytopenia in setting of malignancy and neratinib, improved -Monitor Hepatocellular transaminitis -MRI abd showed cysts in liver Abnormal CT -B renal stones, fecal impaction noted, R rib mets, liver without masses CKD stage IIIb -monitor DM2 -increased lantus to 30 units Memory impairment -Donepezil, Namenda resumed Expected Discharge Location and Transportation: , 22/04 care, multiple family members to help at home, wishes for d/c on Saturday Expected Discharge Expected Discharge Date: 07/27/2025; Expected Discharge Time: VTE Prophylaxis: Pharmacologic & mechanical VTE prophylaxis orders are present. AM-PAC 6 Clicks Score (PT): 17 (07/25/25 0918) CODE STATUS: Code Status and Medical Interventions: CPR (Attempt to Resuscitate); Full Support Ordered at: 07/15/25 0203 Code Status (Patient has no pulse and is not breathing): CPR (Attempt to Resuscitate) Medical Interventions (Patient has pulse or is breathing): Full Support Level Of Support Discussed With: Patient Foster Patel MD 07/25/25 * Foster Patel MD - 07/24/2025 10:11 AM EDT Images from the original note were not included. [facility] PROGRESS NOTE Patient Name: Peter Parnell : 1960 Date of Admission: 2025 Primary Care Physician: Loretta Landon MD Subjective Subjective CC: L weakness/falls HPI: saw patient this AM. Feeling better, encouraged that she's moving LLE better. Doesn't want rehab, but wants to stay here until Saturday, says multiple family members going to help at home. Objective Objective Vital Signs: Temp: [96.9 ??F (36.1 ??C)-98.2 ??F (36.8 ??C)] 98.2 ??F (36.8 ??C) Heart Rate: [72-81] 72 Resp: [16-18] 18 BP: (121-131)/(54-66) 131/62 Physical Exam: Constitutional: No acute distress, awake, alert, chronically ill appearing, sitting up in bed HENT: NCAT, mucous membranes moist Respiratory: Clear to auscultation bilaterally, respiratory effort normal Cardiovascular: RRR, no murmurs, rubs, or gallops Gastrointestinal: Positive bowel sounds, soft, nontender, nondistended Musculoskeletal: trace bilateral LE edema Psychiatric: Appropriate affect, cooperative Neurologic: Oriented x 3, RIZVI, speech clear Skin: No rashes Results Reviewed: LAB RESULTS: Lab 07/19/25 0634 07/18/25 0608 WBC 5.03 5.26 HEMOGLOBIN 8.2* 7.8* HEMATOCRIT 26.3* 25.2* PLATELETS 108* 85* NEUTROS ABS 4.30 4.52 IMMATURE GRANS (ABS) 0.04 0.06* LYMPHS ABS 0.36* 0.36* MONOS ABS 0.33 0.32 EOS ABS 0.00 0.00 MCV 82.4 81.8 Lab 07/22/25 0743 07/21/25 0210 07/20/25 1222 07/19/25 0634 07/18/25 0608 SODIUM 136 -- 139 140 138 POTASSIUM 4.8 5.6* 3.3* 3.9 4.1 CHLORIDE 101 -- 104 106 103 CO2 27.0 -- 21.2* 19.6* 22.0 ANION GAP 8.0 -- 13.8 14.4 13.0 BUN 48.3* -- 44.3* 51.1* 53.0* CREATININE 1.35* -- 1.37* 1.50* 1.64* EGFR 44.0* -- 43.2* 38.8* 34.8* GLUCOSE 275* -- 193* 223* 258* CALCIUM 9.1 -- 9.6 9.4 9.4 Lab 07/20/25 1222 07/19/25 0634 07/18/25 0608 TOTAL PROTEIN 7.1 6.8 6.7 ALBUMIN 3.7 3.6 3.7 GLOBULIN 3.4 3.2 3.0 ALT (SGPT) 182* 131* 115* AST (SGOT) 132* 108* 118* BILIRUBIN 0.5 0.4 0.3 ALK PHOS 198* 186* 180* Brief Urine Lab Results (Last result in the past 365 days) Color Clarity Blood Leuk Est Nitrite Protein CREAT Urine HCG 07/14/25 2243 Yellow Clear Small (1+) Trace Negative 30 mg/dL (1+) Microbiology Results Abnormal None MRI Abdomen With & Without Contrast Result Date: 07/23/2025 MRI ABDOMEN W WO CONTRAST Date of Exam: 07/23/2025 12:48 AM EDT Indication: elevated liver enzymes - concern for progressive breast cancer. Comparison: CT abdomen pelvis 07/18/2025. Technique: Routine multiplanar/multisequence images of the abdomen were obtained before and after the uneventful administration of Vueway. Findings: Visualized lung bases appear clear without distinct airspace consolidation. No pleural or pericardial effusion. See prior chest CT for additional findings above the diaphragm. No evidence of solid, enhancing liver lesion to suggest active hepatic metastatic disease. Small cyst in the posterior right hepatic lobe (series 5 image 9), with several additional punctate T2 hyperintense lesions also suggestive of cysts, which would correspond to findings on prior CTs. Noevidence of hepatic steatosis. No morphologic changes of chronic liver disease. Gallbladder is unremarkable. Common bile duct is normal caliber for age. No evidence of choledocholithiasis. Mild prominence of the pancreatic duct at the level of the head with otherwise normal caliber duct throughout the remaining pancreas. Normal signal and enhancement the pancreatic parenchyma. No findings of acute pancreatitis. Spleen is mildly enlarged, unchanged. No distinct adrenal nodule. Kidneys are symmetric in size without hydronephrosis. Bilateral nephrolithiasis seen to better advantage on CT. Couple tiny renal cysts. No dilated bowel loops within the [id number]. No pathologically enlarged lymphnodes. No abdominal aortic aneurysm. Major vasculature appears patent. No acute body wall abnormality. Osseous metastasis involving the 12th rib and 12th vertebral body, as well as the posterior ninth rib. Metastatic osseous lesions also seen in the lower lumbar spine. Impression: Impression: No convincing evidence of active solid organ or deuce metastatic disease inthe abdomen. Scattered small liver lesions most suggestive of cysts or possibly treated disease. Findings of known osseous metastatic disease. Electronically Signed: Adryan Gibson MD 07/23/2025 8:14 AM EDT Workstation ID: [id number] Results for orders placed during the hospital encounter of 08/25/24 Adult Transthoracic Echo Complete W/ Cont if Necessary Per Protocol 08/25/2024 4:54 PM Interpretation Summary Left ventricular systolic function is normal. Estimated left ventricular EF = 65% Normal global longitudinal LV strain (GLS) = -19.2% The cardiac valves are anatomically and functionally normal. I have personally reviewed the therapy plans: [] PT/OT/ ST Therapy Plans Current medications: Scheduled Meds:dexAMETHasone, 6 mg, Oral, Q6H donepezil, 10 mg, Oral, Nightly famotidine, 20 mg, Oral, Daily heparin (porcine), 5,000 Units, Subcutaneous, Q8H insulin glargine, 25 Units, Subcutaneous, Nightly Insulin Lispro, 14 Units, Subcutaneous, TID With Meals insulin lispro, 2-9 Units, Subcutaneous, 4x Daily AC & at Bedtime memantine, 5 mg, Oral, BID senna-docusate sodium, 2 tablet, Oral, BID And polyethylene glycol, 17 g, Oral, Daily sodium chloride, 10 mL, Intravenous, Q12H Continuous Infusions: PRN Meds:. aluminum-magnesium hydroxide-simethicone senna-docusate sodium AND polyethylene glycol AND bisacodyl AND bisacodyl Calcium Replacement - Follow Nurse / BPA Driven Protocol dextrose dextrose glucagon (human recombinant) HYDROmorphone Magnesium Cardiology Dose Replacement - Follow Nurse / BPA Driven Protocol [DISCONTINUED] Morphine AND naloxone nitroglycerin ondansetron oxyCODONE Phosphorus Replacement - Follow Nurse / BPA Driven Protocol Potassium Replacement - Follow Nurse / BPA Driven Protocol sodium chloride sodium chloride Assessment & Plan Assessment & Plan Active Hospital Problems Diagnosis POA 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 Brief Hospital Course to date: Peter Parnell is a 65 y.o. female w stage IV breast cancer since 2019, DM2, anemia, who presented for evaluation of difficulty walking, multiple falls. MRI cervical spine consistent with intramedullary mass within the spinal cord at C6- 7 compatible with metastatic disease and is the likely source of patient's symptoms. Neurosurgery, oncology, radiation oncology consulted. Started on radiation treatment on 07/16. Also had worsening LFTs, so CT a/p obtained, which showed rectosigmoid colon fecal impaction. Enemas and bowel care increased. Stage IV breast cancer with mets to the brain, bone, spine, liver T12 lesion w cord compression C6-7 intramedullary metastasis -Radiation oncology following, plan for radiation on 07/16 and again on 07/19 -Neurosurgery followed; nonoperative management recommended -Oncology consulted -Neurochecks every 4 hours -Continue decadron every 6 hours per discussion with radiation oncology -PRN pain control, symptom management -PT/OT recs SNF now but patient wishes for home with HH and with family helping -Here through the weekend at least per discussion w Rad/Onc given risk of spinal swelling w radiation. -completed XRT Constipation w fecal impaction -s/p BM Hallucinations, potentially medication-induced +/- hospital delirium, now resolved -pain medications adjusted Pancytopenia in setting of malignancy and neratinib, improved -Monitor Hepatocellular transaminitis -MRI abd showed cysts in liver Abnormal CT -B renal stones, fecal impaction noted, R rib mets, liver without masses CKD stage IIIb -monitor DM2 -increase lantus to 30 units Memory impairment -Donepezil, Namenda resumed Expected Discharge Location and Transportation: , 22/04 care Expected Discharge Expected Discharge Date: 07/27/2025; Expected Discharge Time: VTE Prophylaxis: Pharmacologic & mechanical VTE prophylaxis orders are present. AM-PAC 6 Clicks Score (PT): 17 (07/24/25 1008) CODE STATUS: Code Status and Medical Interventions: CPR (Attempt to Resuscitate); Full Support Ordered at: 07/15/25 0203 Code Status (Patient has no pulse and is not breathing): CPR (Attempt to Resuscitate) Medical Interventions (Patient has pulse or is breathing): Full Support Level Of Support Discussed With: Patient Foster Patel MD 07/24/25 * Valentina Sadler MD - 07/24/2025 9:05 AM EDT HEMATOLOGY/ONCOLOGY PROGRESS NOTE S: Profoundly weak. Her left leg seems to be move a little easier today. Past medical history, social history and family history was reviewed and unchanged from prior visit. Review of Systems: Review of Systems Medications: The current medication list was reviewed in the EMR ALLERGIES: Allergies[1] Physical Exam VITAL SIGNS: BP 126/57 (BP Location: Right arm, Patient Position: Lying) Pulse 74 Temp 97.7 ??F (36.5 ??C) (Oral) Resp 16 Ht 170.2 cm (67 ) Wt 69.1 kg (152 lb 6.4 oz) SpO2 98% BMI 23.87 kg/m?? Temp: [96.9 ??F (36.1 ??C)-97.7 ??F (36.5 ??C)] 97.7 ??F (36.5 ??C) Performance Status:3 Physical Exam General: Weak appearing, in no acute distress HEENT: sclerae anicteric, neck is supple Lymphatics: no cervical, supraclavicular, or axillary adenopathy Extremities: no lower extremity edema Skin: no rashes, lesions, bruising, or petechiae Msk: Shows weakness of the left lower extremity Psych: Mood is stable RECENT LABS: Lab Results Component Value Date HGB 8.2 (L) 07/19/2025 HCT 26.3 (L) 07/19/2025 MCV 82.4 07/19/2025 PLT 108 (L) 07/19/2025 WBC 5.03 07/19/2025 NEUTROABS 4.30 07/19/2025 LYMPHSABS 0.36 (L) 07/19/2025 MONOSABS 0.33 07/19/2025 EOSABS 0.00 07/19/2025 BASOSABS 0.00 07/19/2025 Lab Results Component Value Date GLUCOSE 275 (H) 07/22/2025 BUN 48.3 (H) 07/22/2025 CREATININE 1.35 (H) 07/22/2025 NA 136 07/22/2025 K 4.8 07/22/2025 CL 101 07/22/2025 CO2 27.0 07/22/2025 CALCIUM 9.1 07/22/2025 PROTEINTOT 7.1 07/20/2025 ALBUMIN 3.7 07/20/2025 BILITOT 0.5 07/20/2025 ALKPHOS 198 (H) 07/20/2025 AST 132 (H) 07/20/2025 ALT 182 (H) 07/20/2025 Assessment/Plan 1. Metastatic breast cancer with progressive brain and spinal mets. Some improvement though not dramatic. Undergoing palliative RT. today was her last treatment. I would like to see what her disease looks like in her liver since her AST and ALT have significantly worsened. Plan to reinitiate Enhertu once stable and completed radiotherapy. I plan to initiate therapy as an outpatient next week. Shehas been scheduled for next Saturday. Once stable can be discharged to follow-up with me as an outpatient for treatment. Valentina Sadler MD [facility] Hematology and Oncology 07/24/2025 [1] No Known Allergies * Karen Ortiz MD - 07/23/2025 1:36 PM EDT Palliative Care Daily Progress Note Referring: Meaghan Guerrier C/C: pain is controlled and moving LLE better S: Medical record reviewed. Events noted. Pt moving better. Up eating breakfast when seen. MRI doneover noc to eval liver better. Bladder and bowel both markedly improved after large BMs. ROS: Pain okay. Denied constipation or diarrhea Denied N/V Good appetite Good sleep O: Code Status: Code Status and Medical Interventions: CPR (Attempt to Resuscitate); Full Support Ordered at: 07/15/25 0203 Code Status (Patient has no pulse and is not breathing): CPR (Attempt to Resuscitate) Medical Interventions (Patient has pulse or is breathing): Full Support Level Of Support Discussed With: Patient Advanced Directives: Advance Directive Status: Patient does not have advance directive Goals of Care: Ongoing. Palliative Performance Scale Score: 40% BP 121/66 (BP Location: Right arm, Patient Position: Lying) Pulse 65 Temp 97.6 ??F (36.4 ??C) (Axillary) Resp 16 Ht 170.2 cm (67 ) Wt 69.1 kg (152 lb 6.4 oz) SpO2 95% BMI 23.87 kg/m?? Intake/Output Summary (Last 24 hours) at 07/23/2025 1336 Last data filed at 07/23/2025 0500 Gross per 24 hour Intake 400 ml Output 600 ml Net -200 ml Physical Exam: General Appearance: Alert, cooperative, NAD HEENT: NC/AT, EOMI, anicteric, MMM, face relaxed Neck: supple, trachea midline, no JVD Lungs: CTA bilat, diminished in bases; respirations regular, even and unlabored Heart: RRR, normal S1 and S2, no M/R/G Abdomen: Normal bowel sounds, soft, nontender, nondistended G/U: Deferred MSK/Extremities: No clubbing , cyanosis or edema, No wasting Pulses: Pulses palpable and equal bilaterally Skin: Warm, dry, no mottling Neurologic: A/Ox3, cooperative, moves extremities x 4 - LLE now 2-3/5, no tremor, nl tone, improvedL Psych: Calm, appropriate Current Medications: Current Facility-Administered Medications: aluminum-magnesium hydroxide-simethicone (MAALOX MAX) 400-400-40 MG/5ML suspension 15 mL, 15 mL, Oral, Q6H PRN, Meaghan Guerrier MD sennosides-docusate (PERICOLACE) 8.6-50 MG per tablet 2 tablet, 2 tablet, Oral, BID, 2 tablet at 07/20/252009 AND polyethylene glycol (MIRALAX) packet 17 g, 17 g, Oral, Daily, 17 g at 07/20/25 0848 AND bisacodyl (DULCOLAX) EC tablet 5 mg, 5 mg, Oral, Daily PRN AND bisacodyl (DULCOLAX) suppository 10 mg, 10 mg, Rectal, Daily PRN, Everton Lassiter MD Calcium Replacement - Follow Nurse / BPA Driven Protocol, , Not Applicable, PRN, Meaghan Guerrier MD dexAMETHasone (DECADRON) tablet 6 mg, 6 mg, Oral, Q6H, Foster Patel MD, 6 mg at 07/23/25 1147 dextrose (D50W) (25 g/50 mL) IV injection 25 g, 25 g, Intravenous, Q15 Min PRN, Meaghan Guerrier MD dextrose (GLUTOSE) oral gel 15 g, 15 g, Oral, Q15 Min PRN, Meaghan Guerrier MD donepezil (ARICEPT) tablet 10 mg, 10 mg, Oral, Nightly, Everton Lassiter MD, 10 mg at 07/22/252053 famotidine (PEPCID) tablet 20 mg, 20 mg, Oral, Daily, Arline Walker, PharmD, 20 mg at 07/23/25 0841 glucagon (GLUCAGEN) injection 1 mg, 1 mg, Intramuscular, Q15 Min PRN, Meaghan Guerrier MD heparin (porcine) 5000 UNIT/ML injection 5,000 Units, 5,000 Units, Subcutaneous, Q8H, Everton Lassiter MD, 5,000 Units at 07/23/25 0534 HYDROmorphone (DILAUDID) injection 0.25 mg, 0.25 mg, Intravenous, Q2H PRN, Karen Ortiz MD insulin glargine (LANTUS, SEMGLEE) injection 25 Units, 25 Units, Subcutaneous, Nightly, Foster Patel MD, 25 Units at 07/22/252054 Insulin Lispro (humaLOG) injection 14 Units, 14 Units, Subcutaneous, TID With Meals, Carl Shook MD, 14 Units at 07/23/25 1148 Insulin Lispro (humaLOG) injection 2-9 Units, 2-9 Units, Subcutaneous, 4x Daily AC & at Bedtime, Foster Patel MD, 4 Units at 07/23/25 1148 Magnesium Cardiology Dose Replacement - Follow Nurse / BPA Driven Protocol, , Not Applicable, PRN, Meaghan Guerrier MD memantine (NAMENDA) tablet 5 mg, 5 mg, Oral, BID, Everton Lassiter MD, 5 mg at 07/23/25 0841 [DISCONTINUED] morphine injection 2 mg, 2 mg, Intravenous, Q4H PRN AND naloxone (NARCAN) injection 0.4 mg, 0.4 mg, Intravenous, Q5 Min PRN, Meaghan Guerrier MD nitroglycerin (NITROSTAT) SL tablet 0.4 mg, 0.4 mg, Sublingual, Q5 Min PRN, Meaghan Guerrier MD ondansetron (ZOFRAN) injection 4 mg, 4 mg, Intravenous, Q6H PRN, Meaghan Guerrier MD oxyCODONE (ROXICODONE) immediate release tablet 7.5 mg, 7.5 mg, Oral, Q6H PRN, Karen Ortiz MD, 7.5 mg at 07/23/25 1047 Phosphorus Replacement - Follow Nurse / BPA Driven Protocol, , Not Applicable, PRNJason Jennifer, MD Potassium Replacement - Follow Nurse / BPA Driven Protocol, , Not Applicable, Jason SIMPSON Jennifer, MD sodium chloride 0.9 % flush 10 mL, 10 mL, Intravenous, Q12H, Meaghan Guerrier MD, 10 mL at 07/22/252054 sodium chloride 0.9 % flush 10 mL, 10 mL, Intravenous, Jason SIMPSON Jennifer, MD sodium chloride 0.9 % infusion 40 mL, 40 mL, Intravenous, CALVIN, Meaghan Guerrier MD Labs: Results from last 7 days Lab Units 07/19/25 0634 WBC 10*3/mm3 5.03 HEMOGLOBIN g/dL 8.2* HEMATOCRIT % 26.3* PLATELETS 10*3/mm3 108* Results from last 7 days Lab Units 07/22/25 0743 07/21/25 0210 07/20/25 1222 SODIUM mmol/L 136 -- 139 POTASSIUM mmol/L 4.8 < > 3.3* CHLORIDE mmol/L 101 -- 104 CO2 mmol/L 27.0 -- 21.2* BUN mg/dL 48.3* -- 44.3* CREATININE mg/dL 1.35* -- 1.37* CALCIUM mg/dL 9.1 -- 9.6 BILIRUBIN mg/dL -- -- 0.5 ALK PHOS U/L -- -- 198* ALT (SGPT) U/L -- -- 182* AST (SGOT) U/L -- -- 132* GLUCOSE mg/dL 275* -- 193* < > = values in this interval not displayed. Imaging Results (Last 72 Hours) Procedure Component Value Units Date/Time MRI Abdomen With & Without Contrast [[id number]] Collected: 07/23/25 0748 Updated: 07/23/25 0817 Narrative: MRI ABDOMEN W WO CONTRAST Date of Exam: 07/23/2025 12:48 AM EDT Indication: elevated liver enzymes - concern for progressive breast cancer. Comparison: CT abdomen pelvis 07/18/2025. Technique: Routine multiplanar/multisequence images of the abdomen were obtained before and after the uneventful administration of Vueway. Findings: Visualized lung bases appear clear without distinct airspace consolidation. No pleural or pericardial effusion. See prior chest CT for additional findings above the diaphragm. No evidence of solid, enhancing liver lesion to suggest active hepatic metastatic disease. Small cyst in the posterior right hepatic lobe (series 5 image 9), with several additional punctate T2 hyperintense lesions also suggestive of cysts, which would correspond to findings on prior CTs. No evidenc e of hepatic steatosis. No morphologic changes of chronic liver disease. Gallbladder is unremarkable. Common bile duct is normal caliber for age. No evidence of choledocholithiasis. Mild prominence of the pancreatic duct at the level of the head with otherwise normal caliber duct throughout the remaining pancreas. Normal signal and enhancement the pancreatic parenchyma. No findings of acute pancreatitis. Spleen is mildly enlarged, unchanged. No distinct adrenal nodule. Kidneys are symmetric in size without hydronephrosis. Bilateral nephrolithiasis seen to better advantage on CT. Couple tiny renal cysts. No dilated bowel loops within the [id number]. No pathologically enlarged lymph nodes. No abdominal aortic aneurysm. Major vasculature appears patent. No acute body wall abnormality. Osseous metastasis involving the 12th rib and 12th vertebral body, as well as the posterior ninth rib. Metastatic osseous lesions also seen in the lower lumbar spine. Impression: Impression: No convincing evidence of active solid organ or deuce metastatic disease in the abdomen. Scattered small liver lesions most suggestive of cysts or possibly treated disease. Findings of known osseous metastatic disease. Electronically Signed: Adryan Gibson MD 07/23/2025 8:14 AM EDT Workstation ID: [id number] XR Abdomen KUB [[id number]] Collected: 07/20/252351 Updated: 07/20/252355 Narrative: XR ABDOMEN KUB Date of Exam: 07/20/2025 11:27 PM EDT Indication: constipation. Comparison: 07/18/2025. Findings: No gross free air or pneumatosis though evaluation is slightly limited due to technique. There is anon obstructive bowel gas pattern. A mild stool burden is present. No suspicious calcifications identified. No acute osseous abnormality identified. Impression: Impression: Previously described large stool burden appears to have resolved. Nonobstructive bowel gas pattern. Mild stool burden present. Electronically Signed: Bridgette Campuzano MD 07/20/2025 11:53 PM EDT Workstation ID: [id number] Diagnostics: Reviewed A: Spinal cord mass Breast cancer metastasized to bone Falls Anemia, chronic disease Thrombocytopenia Stage 3b chronic kidney disease Moderate protein-calorie malnutrition Impression: Metastatic breast CA Intraspinal mass Cspine per MRI Anemia CKD Symptoms: Weakness Urinary retention- ?neuro bladder Debility P: Continue current meds and monitor. Palliative Care Team will continue to follow patient. Karen Ortiz MD, 07/23/2025, 13:36 EDT * Foster Patel MD - 07/23/2025 11:49 AM EDT Images from the original note were not included. [facility] PROGRESS NOTE Patient Name: Peter Parnell : 1960 Date of Admission: 2025 Primary Care Physician: Loretta Landon MD Subjective Subjective CC: L weakness/falls HPI: saw patient this AM. Feels better. States that been up walking around and doing well Objective Objective Vital Signs: Temp: [97.5 ??F (36.4 ??C)-98.3 ??F (36.8 ??C)] 97.6 ??F (36.4 ??C) Heart Rate: [65-79] 65 Resp: [16-17] 16 BP: (113-128)/(52-72) 121/66 Physical Exam: Constitutional: No acute distress, awake, alert, chronically ill appearing, sitting up in bed HENT: NCAT, mucous membranes moist Respiratory: Clear to auscultation bilaterally, respiratory effort normal Cardiovascular: RRR, no murmurs, rubs, or gallops Gastrointestinal: Positive bowel sounds, soft, nontender, nondistended Musculoskeletal: trace bilateral LE edema Psychiatric: Appropriate affect, cooperative Neurologic: Oriented x 3, RIZVI, speech clear Skin: No rashes Results Reviewed: LAB RESULTS: Lab 07/19/25 0634 07/18/25 0608 WBC 5.03 5.26 HEMOGLOBIN 8.2* 7.8* HEMATOCRIT 26.3* 25.2* PLATELETS 108* 85* NEUTROS ABS 4.30 4.52 IMMATURE GRANS (ABS) 0.04 0.06* LYMPHS ABS 0.36* 0.36* MONOS ABS 0.33 0.32 EOS ABS 0.00 0.00 MCV 82.4 81.8 Lab 07/22/25 0743 07/21/25 0210 07/20/25 1222 07/19/25 0634 07/18/25 0608 SODIUM 136 -- 139 140 138 POTASSIUM 4.8 5.6* 3.3* 3.9 4.1 CHLORIDE 101 -- 104 106 103 CO2 27.0 -- 21.2* 19.6* 22.0 ANION GAP 8.0 -- 13.8 14.4 13.0 BUN 48.3* -- 44.3* 51.1* 53.0* CREATININE 1.35* -- 1.37* 1.50* 1.64* EGFR 44.0* -- 43.2* 38.8* 34.8* GLUCOSE 275* -- 193* 223* 258* CALCIUM 9.1 -- 9.6 9.4 9.4 Lab 07/20/25 1222 07/19/25 0634 07/18/25 0608 TOTAL PROTEIN 7.1 6.8 6.7 ALBUMIN 3.7 3.6 3.7 GLOBULIN 3.4 3.2 3.0 ALT (SGPT) 182* 131* 115* AST (SGOT) 132* 108* 118* BILIRUBIN 0.5 0.4 0.3 ALK PHOS 198* 186* 180* Brief Urine Lab Results (Last result in the past 365 days) Color Clarity Blood Leuk Est Nitrite Protein CREAT Urine HCG 07/14/25 2243 Yellow Clear Small (1+) Trace Negative 30 mg/dL (1+) Microbiology Results Abnormal None MRI Abdomen With & Without Contrast Result Date: 07/23/2025 MRI ABDOMEN W WO CONTRAST Date of Exam: 07/23/2025 12:48 AM EDT Indication: elevated liver enzymes - concern for progressive breast cancer. Comparison: CT abdomen pelvis 07/18/2025. Technique: Routine multiplanar/multisequence images of the abdomen were obtained before and after the uneventful administration of Vueway. Findings: Visualized lung bases appear clear without distinct airspace consolidation. No pleural or pericardial effusion. See prior chest CT for additional findings above the diaphragm. No evidence of solid, enhancing liver lesion to suggest active hepatic metastatic disease. Small cyst in the posterior right hepatic lobe (series 5 image 9), with several additional punctate T2 hyperintense lesions also suggestive of cysts, which would correspond to findings on prior CTs. Noevidence of hepatic steatosis. No morphologic changes of chronic liver disease. Gallbladder is unremarkable. Common bile duct is normal caliber for age. No evidence of choledocholithiasis. Mild prominence of the pancreatic duct at the level of the head with otherwise normal caliber duct throughout the remaining pancreas. Normal signal and enhancement the pancreatic parenchyma. No findings of acute pancreatitis. Spleen is mildly enlarged, unchanged. No distinct adrenal nodule. Kidneys are symmetric in size without hydronephrosis. Bilateral nephrolithiasis seen to better advantage on CT. Couple tiny renal cysts. No dilated bowel loops within the [id number]. No pathologically enlarged lymphnodes. No abdominal aortic aneurysm. Major vasculature appears patent. No acute body wall abnormality. Osseous metastasis involving the 12th rib and 12th vertebral body, as well as the posterior ninth rib. Metastatic osseous lesions also seen in the lower lumbar spine. Impression: Impression: No convincing evidence of active solid organ or deuce metastatic disease inthe abdomen. Scattered small liver lesions most suggestive of cysts or possibly treated disease. Findings of known osseous metastatic disease. Electronically Signed: Adryan Gibson MD 07/23/2025 8:14 AM EDT Workstation ID: [id number] Results for orders placed during the hospital encounter of 08/25/24 Adult Transthoracic Echo Complete W/ Cont if Necessary Per Protocol 08/25/2024 4:54 PM Interpretation Summary Left ventricular systolic function is normal. Estimated left ventricular EF = 65% Normal global longitudinal LV strain (GLS) = -19.2% The cardiac valves are anatomically and functionally normal. I have personally reviewed the therapy plans: [] PT/OT/ ST Therapy Plans Current medications: Scheduled Meds:dexAMETHasone, 6 mg, Oral, Q6H donepezil, 10 mg, Oral, Nightly famotidine, 20 mg, Oral, Daily heparin (porcine), 5,000 Units, Subcutaneous, Q8H insulin glargine, 25 Units, Subcutaneous, Nightly Insulin Lispro, 14 Units, Subcutaneous, TID With Meals insulin lispro, 2-9 Units, Subcutaneous, 4x Daily AC & at Bedtime memantine, 5 mg, Oral, BID senna-docusate sodium, 2 tablet, Oral, BID And polyethylene glycol, 17 g, Oral, Daily sodium chloride, 10 mL, Intravenous, Q12H Continuous Infusions: PRN Meds:. aluminum-magnesium hydroxide-simethicone senna-docusate sodium AND polyethylene glycol AND bisacodyl AND bisacodyl Calcium Replacement - Follow Nurse / BPA Driven Protocol dextrose dextrose glucagon (human recombinant) HYDROmorphone Magnesium Cardiology Dose Replacement - Follow Nurse / BPA Driven Protocol [DISCONTINUED] Morphine AND naloxone nitroglycerin ondansetron oxyCODONE Phosphorus Replacement - Follow Nurse / BPA Driven Protocol Potassium Replacement - Follow Nurse / BPA Driven Protocol sodium chloride sodium chloride Assessment & Plan Assessment & Plan Active Hospital Problems Diagnosis POA 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 Brief Hospital Course to date: Peter Parnell is a 65 y.o. female w stage IV breast cancer since 2019, DM2, anemia, who presented for evaluation of difficulty walking, multiple falls. MRI cervical spine consistent with intramedullary mass within the spinal cord at C6- 7 compatible with metastatic disease and is the likely source of patient's symptoms. Neurosurgery, oncology, radiation oncology consulted. Started on radiation treatment on 07/16. Also had worsening LFTs, so CT a/p obtained, which showed rectosigmoid colon fecal impaction. Enemas and bowel care increased. Stage IV breast cancer with mets to the brain, bone, spine, liver T12 lesion w cord compression C6-7 intramedullary metastasis -Radiation oncology following, plan for radiation on 07/16 and again on 07/19 -Neurosurgery followed; nonoperative management recommended -Oncology consulted -Neurochecks every 4 hours -Continue decadron every 6 hours per discussion with radiation oncology -PRN pain control, symptom management -PT/OT rec home w 22/04 care, -Here through the weekend at least per discussion w Rad/Onc given risk of spinal swelling w radiation. -completed XRT on 07/22 Constipation w fecal impaction -s/p BM Hallucinations, potentially medication-induced +/- hospital delirium, now resolved -pain medications adjusted Pancytopenia in setting of malignancy and neratinib, improved -Monitor Hepatocellular transaminitis -MRI abd showed cysts in liver Abnormal CT -B renal stones, fecal impaction noted, R rib mets, liver without masses CKD stage IIIb -monitor DM2 -increase lantus to 25 units Memory impairment -Donepezil, Namenda resumed Expected Discharge Location and Transportation: , 22/04 care Expected Discharge Expected Discharge Date: 07/26/2025; Expected Discharge Time: VTE Prophylaxis: Pharmacologic & mechanical VTE prophylaxis orders are present. AM-PAC 6 Clicks Score (PT): 16 (07/23/25 0880) CODE STATUS: Code Status and Medical Interventions: CPR (Attempt to Resuscitate); Full Support Ordered at: 07/15/25 0203 Code Status (Patient has no pulse and is not breathing): CPR (Attempt to Resuscitate) Medical Interventions (Patient has pulse or is breathing): Full Support Level Of Support Discussed With: Patient Foster Patel MD 07/23/25 * Crow Rouse MD - 07/22/2025 4:50 PM EDT RADIATION ONCOLOGY TREATMENT MANAGEMENT NOTE PATIENT: Peter Parnell : 1960 DIAGNOSIS: Malignant neoplasm of upper-outer quadrant of left breast in female, estrogen receptor positive - Stage IIA (T1b, N1, M0) CURRENT DOSE OF RADIATION: 20 Gy out of a planned 20 Gy INTERVAL HISTORY: Completed radiation to the cervical spine today. Pleased. States left lower extremity weakness continues to improve. Not much change in left hand and wrist strength. No other complaints. MEDICATIONS: Medication reconciliation for the patient was reviewed and confirmed in the electronicmedical record. KPS 70% Physical Exam Vitals and nursing note reviewed. Constitutional: General: She is not in acute distress. Appearance: She is well-developed. HENT: Head: Normocephalic and atraumatic. Comments: Alopecia from prior radiation Eyes: Conjunctiva/sclera: Conjunctivae normal. Pupils: Pupils are equal, round, and reactive to light. Cardiovascular: Rate and Rhythm: Normal rate and regular rhythm. Heart sounds: No murmur heard. No friction rub. Pulmonary: Effort: Pulmonary effort is normal. Breath sounds: Normal breath sounds. No wheezing. Abdominal: General: Bowel sounds are normal. There is no distension. Palpations: Abdomen is soft. There is no mass. Tenderness: There is no abdominal tenderness. Musculoskeletal: General: Normal range of motion. Cervical back: Normal range of motion and neck supple. Lymphadenopathy: Cervical: No cervical adenopathy. Skin: General: Skin is warm and dry. Neurological: Mental Status: She is alert and oriented to person, place, and time. Comments: LUE - distal wrist and hand, 3/5 LLE - persistent 3/5 strength to ankle flexion and dorsiflexion. Left proximal hip and knee improved, 4/5 Psychiatric: Behavior: Behavior normal. Thought Content: Thought content normal. Judgment: Judgment normal. VITAL SIGNS: Vitals: 07/22/25 0600 07/22/25 0713 07/22/25 1115 07/22/25 1604 BP: 122/61 144/56 113/52 BP Location: Right arm Right arm Right arm Patient Position: Lying Sitting Sitting Pulse: 65 101 79 Resp: 17 17 16 Temp: 97.8 ??F (36.6 ??C) 97.4 ??F (36.3 ??C) 97.8 ??F (36.6 ??C) TempSrc: Oral Oral Oral SpO2: 94% 98% 99% Weight: 67.8 kg (149 lb 8 oz) Height: The following portions of the patient's history were reviewed and updated as appropriate: allergies, current medications, past family history, past medical history, past social history, past surgicalhistory and problem list. IMPRESSION/PLAN: Mrs. Parnell continues to improve with radiation to the cervical spine. She completed treatments today and ideally we should continue to see her weakness improve. I recommend that we begin tapering back her steroids. 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 Mrs. Parnell is at the point where is nearing ready for discharge. We will coordinate for her to return to clinic next week for treatment planning and I will target the WATER RECLAMATION SYSTEMS OPERATOR metastases using [employer]knife as an outpatient. Crow Rouse MD * Valentina Sadler MD - 07/22/2025 12:39 PM EDT HEMATOLOGY/ONCOLOGY PROGRESS NOTE S: Profoundly weak. Though patient reports some walking with assist. She is able to move her left leg today. Which is near the process. Past medical history, social history and family history was reviewed and unchanged from prior visit. Review of Systems: Review of Systems Medications: The current medication list was reviewed in the EMR ALLERGIES: Allergies[1] Physical Exam VITAL SIGNS: BP 144/56 (BP Location: Right arm, Patient Position: Sitting) Pulse 101 Temp 97.4 ??F (36.3 ??C) (Oral) Resp 17 Ht 170.2 cm (67 ) Wt 67.8 kg (149 lb 8 oz) SpO2 98% BMI 23.42 kg/m?? Temp: [97.4 ??F (36.3 ??C)-98.3 ??F (36.8 ??C)] 97.4 ??F (36.3 ??C) Performance Status:3 Physical Exam General: Weak appearing, in no acute distress HEENT: sclerae anicteric, neck is supple Lymphatics: no cervical, supraclavicular, or axillary adenopathy Extremities: no lower extremity edema Skin: no rashes, lesions, bruising, or petechiae Msk: Shows weakness of the large muscle groups Psych: Mood is stable RECENT LABS: Lab Results Component Value Date HGB 8.2 (L) 07/19/2025 HCT 26.3 (L) 07/19/2025 MCV 82.4 07/19/2025 PLT 108 (L) 07/19/2025 WBC 5.03 07/19/2025 NEUTROABS 4.30 07/19/2025 LYMPHSABS 0.36 (L) 07/19/2025 MONOSABS 0.33 07/19/2025 EOSABS 0.00 07/19/2025 BASOSABS 0.00 07/19/2025 Lab Results Component Value Date GLUCOSE 275 (H) 07/22/2025 BUN 48.3 (H) 07/22/2025 CREATININE 1.35 (H) 07/22/2025 NA 136 07/22/2025 K 4.8 07/22/2025 CL 101 07/22/2025 CO2 27.0 07/22/2025 CALCIUM 9.1 07/22/2025 PROTEINTOT 7.1 07/20/2025 ALBUMIN 3.7 07/20/2025 BILITOT 0.5 07/20/2025 ALKPHOS 198 (H) 07/20/2025 AST 132 (H) 07/20/2025 ALT 182 (H) 07/20/2025 Assessment/Plan 1. Metastatic breast cancer with progressive brain and spinal mets. Some improvement in her symptoms on the left side. Undergoing palliative RT. today was her last treatment. I would like to see whather disease looks like in her liver since her AST and ALT have significantly worsened. Plan to reinitiate Enhertu once stable and completed radiotherapy. I plan to initiate therapy as an outpatient next week. Valentina Sadler MD [facility] Hematology and Oncology 07/22/2025 [1] No Known Allergies * Foster Patel MD - 07/22/2025 12:29 PM EDT Images from the original note were not included. [facility] PROGRESS NOTE Patient Name: Peter Parnell : 1960 Date of Admission: 2025 Primary Care Physician: Loretta Landon MD Subjective Subjective CC: L weakness/falls HPI: saw patient this AM. Feels a little better. Thinks the swelling of Le's a little better. Stillweak on left side. Objective Objective Vital Signs: Temp: [97.4 ??F (36.3 ??C)-98.3 ??F (36.8 ??C)] 97.4 ??F (36.3 ??C) Heart Rate: [65-101] 101 Resp: [16-17] 17 BP: (109-144)/(43-61) 144/56 Physical Exam: Constitutional: No acute distress, awake, alert, chronically ill appearing, sitting up in chair HENT: NCAT, mucous membranes moist Respiratory: Clear to auscultation bilaterally, respiratory effort normal Cardiovascular: RRR, no murmurs, rubs, or gallops Gastrointestinal: Positive bowel sounds, soft, nontender, nondistended Musculoskeletal: trace bilateral LE edema Psychiatric: Appropriate affect, cooperative Neurologic: Oriented x 3, RIZVI, speech clear Skin: No rashes Results Reviewed: LAB RESULTS: Lab 07/19/25 0634 07/18/25 0608 07/16/25 0819 WBC 5.03 5.26 6.18 HEMOGLOBIN 8.2* 7.8* 8.3* HEMATOCRIT 26.3* 25.2* 27.2* PLATELETS 108* 85* 110* NEUTROS ABS 4.30 4.52 5.52 IMMATURE GRANS (ABS) 0.04 0.06* 0.03 LYMPHS ABS 0.36* 0.36* 0.38* MONOS ABS 0.33 0.32 0.25 EOS ABS 0.00 0.00 0.00 MCV 82.4 81.8 82.9 Lab 07/22/25 0743 07/21/25 0210 07/20/25 1222 07/19/25 0634 07/18/25 0608 07/16/25 0819 SODIUM 136 -- 139 140 138 140 POTASSIUM 4.8 5.6* 3.3* 3.9 4.1 4.0 CHLORIDE 101 -- 104 106 103 103 CO2 27.0 -- 21.2* 19.6* 22.0 24.6 ANION GAP 8.0 -- 13.8 14.4 13.0 12.4 BUN 48.3* -- 44.3* 51.1* 53.0* 30.4* CREATININE 1.35* -- 1.37* 1.50* 1.64* 1.51* EGFR 44.0* -- 43.2* 38.8* 34.8* 38.4* GLUCOSE 275* -- 193* 223* 258* 212* CALCIUM 9.1 -- 9.6 9.4 9.4 10.0 MAGNESIUM -- -- -- -- -- 2.9* PHOSPHORUS -- -- -- -- -- 3.6 Lab 07/20/25 1222 07/19/25 0634 07/18/25 0608 07/16/25 0819 TOTAL PROTEIN 7.1 6.8 6.7 8.0 ALBUMIN 3.7 3.6 3.7 4.1 GLOBULIN 3.4 3.2 3.0 3.9 ALT (SGPT) 182* 131* 115* 38* AST (SGOT) 132* 108* 118* 57* BILIRUBIN 0.5 0.4 0.3 0.4 ALK PHOS 198* 186* 180* 155* Lab 07/16/25 0819 ABO TYPING O RH TYPING Positive Brief Urine Lab Results (Last result in the past 365 days) Color Clarity Blood Leuk Est Nitrite Protein CREAT Urine HCG 07/14/25 2243 Yellow Clear Small (1+) Trace Negative 30 mg/dL (1+) Microbiology Results Abnormal None XR Abdomen KUB Result Date: 07/20/2025 XR ABDOMEN KUB Date of Exam: 07/20/2025 11:27 PM EDT Indication: constipation. Comparison: 07/18/2025. Findings: No gross free air or pneumatosis though evaluation is slightly limited due to technique. There is a non obstructive bowel gas pattern. A mild stool burden is present. No suspicious calcifications identified. No acute osseous abnormality identified. Impression: Impression: Previously described large stool burden appears to have resolved. Nonobstructive bowel gas pattern. Mild stool burden present. Electronically Signed: Bridgette Campuzano MD 07/20/2025 11:53 PM EDT Workstation ID: [id number] Results for orders placed during the hospital encounter of 08/25/24 Adult Transthoracic Echo Complete W/ Cont if Necessary Per Protocol 08/25/2024 4:54 PM Interpretation Summary Left ventricular systolic function is normal. Estimated left ventricular EF = 65% Normal global longitudinal LV strain (GLS) = -19.2% The cardiac valves are anatomically and functionally normal. I have personally reviewed the therapy plans: [] PT/OT/ ST Therapy Plans Current medications: Scheduled Meds:dexAMETHasone, 6 mg, Oral, Q6H donepezil, 10 mg, Oral, Nightly famotidine, 20 mg, Oral, Daily heparin (porcine), 5,000 Units, Subcutaneous, Q8H insulin glargine, 20 Units, Subcutaneous, Nightly Insulin Lispro, 14 Units, Subcutaneous, TID With Meals insulin lispro, 2-9 Units, Subcutaneous, 4x Daily AC & at Bedtime memantine, 5 mg, Oral, BID senna-docusate sodium, 2 tablet, Oral, BID And polyethylene glycol, 17 g, Oral, Daily sodium chloride, 10 mL, Intravenous, Q12H Continuous Infusions: PRN Meds:. aluminum-magnesium hydroxide-simethicone senna-docusate sodium AND polyethylene glycol AND bisacodyl AND bisacodyl Calcium Replacement - Follow Nurse / BPA Driven Protocol dextrose dextrose glucagon (human recombinant) HYDROmorphone Magnesium Cardiology Dose Replacement - Follow Nurse / BPA Driven Protocol [DISCONTINUED] Morphine AND naloxone nitroglycerin ondansetron oxyCODONE Phosphorus Replacement - Follow Nurse / BPA Driven Protocol Potassium Replacement - Follow Nurse / BPA Driven Protocol sodium chloride sodium chloride Assessment & Plan Assessment & Plan Active Hospital Problems Diagnosis POA 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 Brief Hospital Course to date: Peter Parnell is a 65 y.o. female w stage IV breast cancer since 2019, DM2, anemia, who presented for evaluation of difficulty walking, multiple falls. MRI cervical spine consistent with intramedullary mass within the spinal cord at C6- 7 compatible with metastatic disease and is the likely source of patient's symptoms. Neurosurgery, oncology, radiation oncology consulted. Started on radiation treatment on 07/16. Also had worsening LFTs, so CT a/p obtained, which showed rectosigmoid colon fecal impaction. Enemas and bowel care increased. Stage IV breast cancer with mets to the brain, bone, spine, liver T12 lesion w cord compression C6-7 intramedullary metastasis -Radiation oncology following, plan for radiation on 07/16 and again on 07/19 -Neurosurgery followed; nonoperative management recommended -Oncology consulted -Neurochecks every 4 hours -Continue decadron IV every 6 hours per discussion with radiation oncology -PRN pain control, symptom management -PT/OT rec home w 22/04 care, -Here through the weekend at least per discussion w Rad/Onc given risk of spinal swelling w radiation. -XRT through 07/22 Constipation w fecal impaction -s/p BM Hallucinations, potentially medication-induced +/- hospital delirium, now resolved -pain medications adjusted Pancytopenia in setting of malignancy and neratinib, improved -Monitor Hepatocellular transaminitis -Has known mets to liver Abnormal CT -B renal stones, fecal impaction noted, R rib mets, liver without masses CKD stage IIIb -monitor DM2 -increase lantus to 25 units Memory impairment -Donepezil, Namenda resumed Expected Discharge Location and Transportation: , 22/04 care Expected Discharge Expected Discharge Date: 07/26/2025; Expected Discharge Time: VTE Prophylaxis: Pharmacologic & mechanical VTE prophylaxis orders are present. AM-PAC 6 Clicks Score (PT): 15 (07/22/25 0828) CODE STATUS: Code Status and Medical Interventions: CPR (Attempt to Resuscitate); Full Support Ordered at: 07/15/25 0203 Code Status (Patient has no pulse and is not breathing): CPR (Attempt to Resuscitate) Medical Interventions (Patient has pulse or is breathing): Full Support Level Of Support Discussed With: Patient Foster Patel MD 07/22/25 * Foster Patel MD - 07/21/2025 2:52 PM EDT Images from the original note were not included. [facility] PROGRESS NOTE Patient Name: Peter Parnell : 1960 Date of Admission: 2025 Primary Care Physician: Loretta Landon MD Subjective Subjective CC: L weakness/falls HPI: saw patient this AM. Reports that she had been constipated but had a large volcanic BM this AM. Objective Objective Vital Signs: Temp: [97.5 ??F (36.4 ??C)-97.9 ??F (36.6 ??C)] 97.5 ??F (36.4 ??C) Heart Rate: [64-91] 91 Resp: [16] 16 BP: (118-139)/(53-75) 118/55 Physical Exam: Constitutional: No acute distress, awake, alert, chronically ill appearing HENT: NCAT, mucous membranes moist Respiratory: Clear to auscultation bilaterally, respiratory effort normal Cardiovascular: RRR, no murmurs, rubs, or gallops Gastrointestinal: Positive bowel sounds, soft, nontender, nondistended Musculoskeletal: No bilateral ankle edema Psychiatric: Appropriate affect, cooperative Neurologic: Oriented x 3, RIZVI, speech clear Skin: No rashes Results Reviewed: LAB RESULTS: Lab 07/19/25 0634 07/18/25 0608 07/16/25 0819 07/15/25 0918 07/14/25 2206 WBC 5.03 5.26 6.18 2.72* 4.79 HEMOGLOBIN 8.2* 7.8* 8.3* 8.5* 8.1* HEMATOCRIT 26.3* 25.2* 27.2* 27.9* 26.7* PLATELETS 108* 85* 110* 69* 90* NEUTROS ABS 4.30 4.52 5.52 2.40 3.90 IMMATURE GRANS (ABS) 0.04 0.06* 0.03 0.01 0.02 LYMPHS ABS 0.36* 0.36* 0.38* 0.26* 0.44* MONOS ABS 0.33 0.32 0.25 0.05* 0.40 EOS ABS 0.00 0.00 0.00 0.00 0.02 MCV 82.4 81.8 82.9 84.5 84.2 Lab 07/21/25 0210 07/20/25 1222 07/19/25 0634 07/18/25 0608 07/16/25 0819 07/15/25 0918 SODIUM -- 139 140 138 140 139 POTASSIUM 5.6* 3.3* 3.9 4.1 4.0 4.0 CHLORIDE -- 104 106 103 103 104 CO2 -- 21.2* 19.6* 22.0 24.6 23.3 ANION GAP -- 13.8 14.4 13.0 12.4 11.7 BUN -- 44.3* 51.1* 53.0* 30.4* 25.7* CREATININE -- 1.37* 1.50* 1.64* 1.51* 1.47* EGFR -- 43.2* 38.8* 34.8* 38.4* 39.7* GLUCOSE -- 193* 223* 258* 212* 182* CALCIUM -- 9.6 9.4 9.4 10.0 9.6 MAGNESIUM -- -- -- -- 2.9* 1.5* PHOSPHORUS -- -- -- -- 3.6 3.6 HEMOGLOBIN A1C -- -- -- -- -- 5.83* Lab 07/20/25 1222 07/19/25 0634 07/18/25 0608 07/16/25 0819 07/15/25 0918 TOTAL PROTEIN 7.1 6.8 6.7 8.0 7.4 ALBUMIN 3.7 3.6 3.7 4.1 3.9 GLOBULIN 3.4 3.2 3.0 3.9 3.5 ALT (SGPT) 182* 131* 115* 38* 27 AST (SGOT) 132* 108* 118* 57* 43* BILIRUBIN 0.5 0.4 0.3 0.4 0.4 ALK PHOS 198* 186* 180* 155* 144* Lab 07/16/25 0819 07/15/25 0918 ABO TYPING O O RH TYPING Positive Positive ANTIBODY SCREEN -- Negative Brief Urine Lab Results (Last result in the past 365 days) Color Clarity Blood Leuk Est Nitrite Protein CREAT Urine HCG 07/14/25 2243 Yellow Clear Small (1+) Trace Negative 30 mg/dL (1+) Microbiology Results Abnormal None XR Abdomen KUB Result Date: 07/20/2025 XR ABDOMEN KUB Date of Exam: 07/20/2025 11:27 PM EDT Indication: constipation. Comparison: 07/18/2025. Findings: No gross free air or pneumatosis though evaluation is slightly limited due to technique. There is a non obstructive bowel gas pattern. A mild stool burden is present. No suspicious calcifications identified. No acute osseous abnormality identified. Impression: Impression: Previously described large stool burden appears to have resolved. Nonobstructive bowel gas pattern. Mild stool burden present. Electronically Signed: Bridgette Campuzano MD 07/20/2025 11:53 PM EDT Workstation ID: [id number] Results for orders placed during the hospital encounter of 08/25/24 Adult Transthoracic Echo Complete W/ Cont if Necessary Per Protocol 08/25/2024 4:54 PM Interpretation Summary Left ventricular systolic function is normal. Estimated left ventricular EF = 65% Normal global longitudinal LV strain (GLS) = -19.2% The cardiac valves are anatomically and functionally normal. I have personally reviewed the therapy plans: [] PT/OT/ ST Therapy Plans Current medications: Scheduled Meds:dexAMETHasone, 6 mg, Oral, Q6H donepezil, 10 mg, Oral, Nightly famotidine, 20 mg, Oral, Daily heparin (porcine), 5,000 Units, Subcutaneous, Q8H insulin glargine, 20 Units, Subcutaneous, Nightly Insulin Lispro, 14 Units, Subcutaneous, TID With Meals insulin lispro, 2-9 Units, Subcutaneous, 4x Daily AC & at Bedtime memantine, 5 mg, Oral, BID senna-docusate sodium, 2 tablet, Oral, BID And polyethylene glycol, 17 g, Oral, Daily sodium chloride, 10 mL, Intravenous, Q12H Continuous Infusions: PRN Meds:. aluminum-magnesium hydroxide-simethicone senna-docusate sodium AND polyethylene glycol AND bisacodyl AND bisacodyl Calcium Replacement - Follow Nurse / BPA Driven Protocol dextrose dextrose glucagon (human recombinant) HYDROmorphone Magnesium Cardiology Dose Replacement - Follow Nurse / BPA Driven Protocol [DISCONTINUED] Morphine AND naloxone nitroglycerin ondansetron oxyCODONE Phosphorus Replacement - Follow Nurse / BPA Driven Protocol Potassium Replacement - Follow Nurse / BPA Driven Protocol sodium chloride sodium chloride Assessment & Plan Assessment & Plan Active Hospital Problems Diagnosis POA 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 Brief Hospital Course to date: Peter Parnell is a 65 y.o. female w stage IV breast cancer since 2019, DM2, anemia, who presented for evaluation of difficulty walking, multiple falls. MRI cervical spine consistent with intramedullary mass within the spinal cord at C6- 7 compatible with metastatic disease and is the likely source of patient's symptoms. Neurosurgery, oncology, radiation oncology consulted. Started on radiation treatment on 07/16. Also had worsening LFTs, so CT a/p obtained, which showed rectosigmoid colon fecal impaction. Enemas and bowel care increased. Stage IV breast cancer with mets to the brain, bone, spine, liver T12 lesion w cord compression C6-7 intramedullary metastasis -Radiation oncology following, plan for radiation on 07/16 and again on 07/19 -Neurosurgery followed; nonoperative management recommended -Oncology consulted -Neurochecks every 4 hours -Continue decadron IV every 6 hours per discussion with radiation oncology -PRN pain control, symptom management -PT/OT rec home w 22/04 care, -Here through the weekend at least per discussion w Rad/Onc given risk of spinal swelling w radiation. Status-post radiation treatment on 07/16. -XRT through 07/22 Constipation w fecal impaction -s/p BM Hallucinations, potentially medication-induced +/- hospital delirium, now resolved -pain medications adjusted Pancytopenia in setting of malignancy and neratinib, improved -Monitor Hepatocellular transaminitis -Has known mets to liver Abnormal CT -B renal stones, fecal impaction noted, R rib mets, liver without masses CKD stage IIIb -monitor DM2 -adjust insulin Memory impairment -Donepezil, Namenda resumed Expected Discharge Location and Transportation: , 22/04 care Expected Discharge Expected Discharge Date: 07/26/2025; Expected Discharge Time: VTE Prophylaxis: Pharmacologic & mechanical VTE prophylaxis orders are present. AM-PAC 6 Clicks Score (PT): 15 (07/21/25 9055) CODE STATUS: Code Status and Medical Interventions: CPR (Attempt to Resuscitate); Full Support Ordered at: 07/15/25 020 Code Status (Patient has no pulse and is not breathing): CPR (Attempt to Resuscitate) Medical Interventions (Patient has pulse or is breathing): Full Support Level Of Support Discussed With: Patient Foster Patel MD 07/21/25 * Valentina Sadler MD - 07/21/2025 2:37 PM EDT HEMATOLOGY/ONCOLOGY PROGRESS NOTE S: Profoundly weak. Though patient reports some walking with assist. Minimal improvement So far. Past medical history, social history and family history was reviewed and unchanged from prior visit. Review of Systems: Review of Systems Medications: The current medication list was reviewed in the EMR ALLERGIES: Allergies[1] Physical Exam VITAL SIGNS: BP 118/55 (BP Location: Right arm, Patient Position: Sitting) Pulse 91 Temp 97.5 ??F (36.4 ??C)(Oral) Resp 16 Ht 170.2 cm (67 ) Wt 72.1 kg (159 lb) SpO2 99% BMI 24.90 kg/m?? Temp: [97.5 ??F (36.4 ??C)-97.9 ??F (36.6 ??C)] 97.5 ??F (36.4 ??C) Performance Status:3 Physical Exam General: Weak appearing, in no acute distress HEENT: sclerae anicteric, neck is supple Lymphatics: no cervical, supraclavicular, or axillary adenopathy Extremities: no lower extremity edema Skin: no rashes, lesions, bruising, or petechiae Msk: Shows no weakness of the large muscle groups Psych: Mood is stable RECENT LABS: Lab Results Component Value Date HGB 8.2 (L) 07/19/2025 HCT 26.3 (L) 07/19/2025 MCV 82.4 07/19/2025 PLT 108 (L) 07/19/2025 WBC 5.03 07/19/2025 NEUTROABS 4.30 07/19/2025 LYMPHSABS 0.36 (L) 07/19/2025 MONOSABS 0.33 07/19/2025 EOSABS 0.00 07/19/2025 BASOSABS 0.00 07/19/2025 Lab Results Component Value Date GLUCOSE 193 (H) 07/20/2025 BUN 44.3 (H) 07/20/2025 CREATININE 1.37 (H) 07/20/2025 NA 139 07/20/2025 K 5.6 (H) 07/21/2025 CL 104 07/20/2025 CO2 21.2 (L) 07/20/2025 CALCIUM 9.6 07/20/2025 PROTEINTOT 7.1 07/20/2025 ALBUMIN 3.7 07/20/2025 BILITOT 0.5 07/20/2025 ALKPHOS 198 (H) 07/20/2025 AST 132 (H) 07/20/2025 ALT 182 (H) 07/20/2025 Assessment/Plan 1. Metastatic breast cancer with progressive brain and spinal mets. No significant change in her symptoms. Undergoing palliative RT. Plan to reinitiate Enhertu once stable and completed radiotherapy.There is some concern of progression within the liver also with elevated liver enzymes. Valentina Sadler MD [facility] Hematology and Oncology 07/21/2025 [1] No Known Allergies * Summer Mistry, RD - 07/20/2025 7:10 PM EDT Patient Name: Peter Parnell Date of : 1960 Admission date: 2025 Reason for Encounter: Follow-up/Progress Note [facility] Clinical Nutrition Assessment Subjective Subjective Information 10-21: pt resting in bed, on room air, reports she has not has much appetite as her bowels were notmoving, this has resolved today, has had some intermittent nausea, does like the magic cups, is swallowing ok 10-16: pt resting in bed, frail appearing, reports she is hungry as she has not been able to eat yet, is planning to have a scan today, reports gradual wt loss over past several years since dx of cancer, she used to weigh ~209lb's, she experiences occasional nausea with chemotherapy, typically drinks abarca protein shake daily, only has 2 meals per day, is able to swallow ok Objective H&P and Current Problems H&P Past Medical History: Diagnosis Date Back problem Bone cancer Mets Breast cancer Diabetes mellitus Drug therapy 12/2013 History of radiation therapy 01/19/2022 L3-L5, sacrum History of radiation therapy 09/26/2022 Whole brain radiotherapy Hx of radiation therapy 04/2014 Kidney stone Liver carcinoma Mets Malignant neoplasm of upper-outer quadrant of left breast in female, estrogen receptor positive 08/22/2016 Neuropathy Radiation Past Surgical History: Procedure Laterality Date BREAST BIOPSY Left BREAST LUMPECTOMY Left 11/2013 CATARACT EXTRACTION Right 02/11/2024 HEAD/NECK LESION/CYST EXCISION Right 12/02/2020 Procedure: WIDE EXCISION MALIGNANT LESION OF SCALP; Surgeon: Evens Wagner MD; Location: [facility]; Service: General; Laterality: Right; LIVER BIOPSY 09/22/2019 OOPHORECTOMY PORTACATH PLACEMENT Right 2019 SKIN FULL THICKNESS GRAFT Right 12/02/2020 Procedure: FULL THICKNESS SKIN GRAFT, RESECTION OF TUMOR OF RIGHT NECK; Surgeon: Evens Wagner MD; Location: [facility]; Service: General; Laterality: Right; Current Problems Admission Diagnosis: Cauda equina syndrome [G83.4] Problem List: Spinal cord mass Breast cancer metastasized to bone Falls Anemia, chronic disease Thrombocytopenia Stage 3b chronic kidney disease Moderate protein-calorie malnutrition Applicable Nutrition Hx Initial dx breast cancer 2013 LIver and bone mets dx 2019 Brain mets dx 2021 Anthropometrics Height: 170.2 cm (67 ) Weight: 72.1 kg (159 lb) (07/15/25 1034) Weight Method: Standing scale BMI (Calculated): 24.9 Trending Weight Changes 07/15/25: per EMR ~ 49lb wt loss over past 3 years, 24 % wt loss Weight History Wt Readings from Last 20 Encounters: 07/15/25 1034 72.1 kg (159 lb) 07/15/25 0250 71 kg (156 lb 9.6 oz) 07/14/252000 71.7 kg (158 lb) 06/16/25 1504 72.6 kg (160 lb) 05/05/25 1320 71.6 kg (157 lb 14.4 oz) 05/05/25 1337 71.7 kg (158 lb) 03/25/25 1350 72.1 kg (159 lb) 02/25/25 1222 73 kg (161 lb) 02/25/25 1314 73 kg (161 lb) 01/28/25 1521 73 kg (161 lb) 12/24/24 1455 72.1 kg (159 lb) 12/24/24 1517 72.4 kg (159 lb 11.2 oz) 12/03/24 0857 72.1 kg (158 lb 14.4 oz) 11/12/24 0841 71.2 kg (157 lb) 11/27/24 0920 71.2 kg (157 lb) 10/22/24 0850 74.4 kg (164 lb) 10/01/24 0843 73.9 kg (163 lb) 09/10/24 0833 73.9 kg (163 lb) 09/10/24 0852 73.9 kg (163 lb) 08/20/24 0940 73.9 kg (163 lb) 07/30/24 0935 72.6 kg (160 lb) 07/09/24 1000 74.2 kg (163 lb 8 oz) Pt weighed 205lb's at oncology clinic 01-09-22 Labs Results from last 7 days Lab Units 07/20/25 1222 07/19/25 0634 07/18/25 0608 07/16/25 0819 07/15/25 0918 SODIUM mmol/L 139 140 138 140 139 POTASSIUM mmol/L 3.3* 3.9 4.1 4.0 4.0 GLUCOSE mg/dL 193* 223* 258* 212* 182* BUN mg/dL 44.3* 51.1* 53.0* 30.4* 25.7* CREATININE mg/dL 1.37* 1.50* 1.64* 1.51* 1.47* CALCIUM mg/dL 9.6 9.4 9.4 10.0 9.6 PHOSPHORUS mg/dL -- -- -- 3.6 3.6 MAGNESIUM mg/dL -- -- -- 2.9* 1.5* ALBUMIN g/dL 3.7 3.6 3.7 4.1 3.9 BILIRUBIN mg/dL 0.5 0.4 0.3 0.4 0.4 ALK PHOS U/L 198* 186* 180* 155* 144* AST (SGOT) U/L 132* 108* 118* 57* 43* ALT (SGPT) U/L 182* 131* 115* 38* 27 Results from last 7 days Lab Units 07/19/25 0634 07/18/25 0608 07/16/25 0819 PLATELETS 10*3/mm3 108* 85* 110* HEMOGLOBIN g/dL 8.2* 7.8* 8.3* HEMATOCRIT % 26.3* 25.2* 27.2* Lab Results Component Value Date HGBA1C 5.83 (H) 07/15/2025 Medications Scheduled Medications dexAMETHasone, 6 mg, Intravenous, Q6H donepezil, 10 mg, Oral, Nightly [START ON 07/21/2025] famotidine, 20 mg, Oral, Daily heparin (porcine), 5,000 Units, Subcutaneous, Q8H insulin glargine, 20 Units, Subcutaneous, Nightly Insulin Lispro, 14 Units, Subcutaneous, TID With Meals insulin lispro, 2-7 Units, Subcutaneous, 4x Daily AC & at Bedtime memantine, 5 mg, Oral, BID senna-docusate sodium, 2 tablet, Oral, BID And polyethylene glycol, 17 g, Oral, Daily potassium chloride ER, 40 mEq, Oral, Q4H sodium chloride, 10 mL, Intravenous, Q12H Infusions PRN Medications aluminum-magnesium hydroxide-simethicone senna-docusate sodium AND polyethylene glycol AND bisacodyl AND bisacodyl Calcium Replacement - Follow Nurse / BPA Driven Protocol dextrose dextrose glucagon (human recombinant) HYDROmorphone Magnesium Cardiology Dose Replacement - Follow Nurse / BPA Driven Protocol [DISCONTINUED] Morphine AND naloxone nitroglycerin ondansetron oxyCODONE Phosphorus Replacement - Follow Nurse / BPA Driven Protocol Potassium Replacement - Follow Nurse / BPA Driven Protocol sodium chloride sodium chloride Physical Findings Chewing/Swallowing No issues identified at this time Dentition Mouth/Teeth WDL: WDL Skin WNL Bowel function Last Bowel Movement: 07/19/25 (07/20/25 1510) Stool Consistency: creamy, soft (07/20/25 1600) Edema Edema: knee, left (07/20/25 0845) Knee, Left Edema: 2+ (Mild) (07/20/25 0845) None observed Intake & Output (last 3 days) 07/18 0707/19 0707/19 0701 07/20 0700 07/20 0701 07/21 0700 P.O. 400 360 340 Total Intake(mL/kg) 400 (5.5) 360 (5) 340 (4.7) Urine (mL/kg/hr) 350 (0.4) Stool 0 Total Output 350 Net +400 +360 -10 Urine Unmeasured Occurrence 5 x 3 x 2 x Stool Unmeasured Occurrence 2 x 5 x 1 x Nutrition Focused Physical Exam 07/15/25: NFPE completed, consistent with nutrition diagnosis of malnutrition using AND/ASPEN criteria. See MSA below. Current Nutrition Orders & Evaluation of Intake Oral Nutrition Food Allergies/Intolerances NKA Current PO Diet Diet: Regular/House; Fluid Consistency: Thin (IDDSI 0) Oral Nutrition Supplement Magic Cup 2x/day Trending % PO Intake 65% of 10 meals Assessment & Plan Nutrition Diagnosis and Goals Nutrition Diagnosis 1 Moderate chronic disease or condition related malnutrition 2nd breast cancer with mets, evidenced by 49lb wt loss over 3 years, 24% wt loss, moderate muscle wasting, fat loss Goal(s) Increase PO Intake Nutrition Intervention and Prescription Intervention Advised available snacks and encourage intake Continue to encourage frequent small meals, and snacks, and supplements Monitoring/Evaluation Monitor/Evaluation Per Protocol, I&O, PO Intake, Oral Nutrition Supplement Intake, Pertinent Labs, Weight, Skin Status, GI Status, Symptoms, and Swallow Function RD Follow-Up Encounter 7 days 30min Electronically signed by: Summer Mistry RD 07/20/25 19:10 EDT * Crow Rouse MD - 07/20/2025 1:25 PM EDT RADIATION ONCOLOGY TREATMENT MANAGEMENT NOTE PATIENT: Peter Parnell : 1960 DIAGNOSIS: Malignant neoplasm of upper-outer quadrant of left breast in female, estrogen receptor positive - Stage IIA (T1b, N1, M0) CURRENT DOSE OF RADIATION: 12 Gy out of a planned 20 Gy NUMBER OF REMAINING TREATMENTS: 2 INTERVAL HISTORY: No events overnight. Continues to remain weak on the left, although she states she feels her strength is slightly better. MEDICATIONS: Medication reconciliation for the patient was reviewed and confirmed in the electronicmedical record. KPS 60% Physical Exam Vitals and nursing note reviewed. Constitutional: General: She is not in acute distress. Appearance: She is well-developed. HENT: Head: Normocephalic and atraumatic. Mouth/Throat: Comments: No evidence of thrush Eyes: Conjunctiva/sclera: Conjunctivae normal. Pupils: Pupils are equal, round, and reactive to light. Cardiovascular: Rate and Rhythm: Normal rate and regular rhythm. Heart sounds: No murmur heard. No friction rub. Pulmonary: Effort: Pulmonary effort is normal. Breath sounds: Normal breath sounds. No wheezing. Abdominal: General: Bowel sounds are normal. There is no distension. Palpations: Abdomen is soft. There is no mass. Tenderness: There is no abdominal tenderness. Musculoskeletal: General: Normal range of motion. Cervical back: Normal range of motion and neck supple. Lymphadenopathy: Cervical: No cervical adenopathy. Skin: General: Skin is warm and dry. Neurological: Mental Status: She is alert and oriented to person, place, and time. Comments: Continues with weakness in the LUE - distal, and LLE; all 2-3/5. Her strength is at leaststable. Psychiatric: Behavior: Behavior normal. Thought Content: Thought content normal. Judgment: Judgment normal. VITAL SIGNS: Vitals: 07/19/25 2246 07/20/25 0406 07/20/25 0735 07/20/25 1022 BP: 135/64 131/67 127/67 113/62 BP Location: Right arm Right arm Right arm Right arm Patient Position: Lying Lying Lying Lying Pulse: 91 62 65 83 Resp: 16 16 16 16 Temp: 98.2 ??F (36.8 ??C) 97.6 ??F (36.4 ??C) 97.6 ??F (36.4 ??C) 97.6 ??F (36.4 ??C) TempSrc: Oral Oral Oral Oral SpO2: 100% 97% 97% 98% Weight: Height: The following portions of the patient's history were reviewed and updated as appropriate: allergies, current medications, past family history, past medical history, past social history, past surgicalhistory and problem list. IMPRESSION/PLAN: Mrs. Parnell is a 65 year old female with metastatic Her2+ breast cancer. She is currently undergoing palliative radiation to the cervical spine. She is tolerating it well and subjectively reports that her weakness is slightly better. She will complete those treatments on . 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 Crow Rouse MD * Carl Shook MD - 07/20/2025 7:30 AM EDT Images from the original note were not included. [facility] PROGRESS NOTE Patient Name: Peter Parnell : 1960 Date of Admission: 2025 Primary Care Physician: Loretta Landon MD Subjective Subjective CC: L weakness/falls HPI: Still feels constipated. No f/c. Objective Objective Vital Signs: Temp: [97.4 ??F (36.3 ??C)-98.2 ??F (36.8 ??C)] 97.6 ??F (36.4 ??C) Heart Rate: [62-91] 62 Resp: [16] 16 BP: (120-135)/(48-67) 131/67 Physical Exam: NAD, alert and oriented OP clear, dry MM Neck supple RRR CTAB +BS, soft RIZVI Normal affect No rashes Results Reviewed: LAB RESULTS: Lab 07/19/25 0634 07/18/25 0608 07/16/25 0819 07/15/25 0918 07/14/25 2206 WBC 5.03 5.26 6.18 2.72* 4.79 HEMOGLOBIN 8.2* 7.8* 8.3* 8.5* 8.1* HEMATOCRIT 26.3* 25.2* 27.2* 27.9* 26.7* PLATELETS 108* 85* 110* 69* 90* NEUTROS ABS 4.30 4.52 5.52 2.40 3.90 IMMATURE GRANS (ABS) 0.04 0.06* 0.03 0.01 0.02 LYMPHS ABS 0.36* 0.36* 0.38* 0.26* 0.44* MONOS ABS 0.33 0.32 0.25 0.05* 0.40 EOS ABS 0.00 0.00 0.00 0.00 0.02 MCV 82.4 81.8 82.9 84.5 84.2 Lab 07/19/25 0634 07/18/25 0608 07/16/25 0819 07/15/2518 07/14/25 2206 SODIUM 140 138 140 139 142 POTASSIUM 3.9 4.1 4.0 4.0 4.3 CHLORIDE 106 103 103 104 103 CO2 19.6* 22.0 24.6 23.3 25.5 ANION GAP 14.4 13.0 12.4 11.7 13.5 BUN 51.1* 53.0* 30.4* 25.7* 27.0* CREATININE 1.50* 1.64* 1.51* 1.47* 1.66* EGFR 38.8* 34.8* 38.4* 39.7* 34.3* GLUCOSE 223* 258* 212* 182* 133* CALCIUM 9.4 9.4 10.0 9.6 9.8 MAGNESIUM -- -- 2.9* 1.5* -- PHOSPHORUS -- -- 3.6 3.6 -- HEMOGLOBIN A1C -- -- -- 5.83* -- Lab 07/19/25 0634 07/18/25 0608 07/16/25 0807/15/2518 07/14/25 2206 TOTAL PROTEIN 6.8 6.7 8.0 7.4 7.3 ALBUMIN 3.6 3.7 4.1 3.9 4.0 GLOBULIN 3.2 3.0 3.9 3.5 3.3 ALT (SGPT) 131* 115* 38* 27 28 AST (SGOT) 108* 118* 57* 43* 40* BILIRUBIN 0.4 0.3 0.4 0.4 0.4 ALK PHOS 186* 180* 155* 144* 151* Lab 07/16/25 0819 07/15/25917 ABO TYPING O O RH TYPING Positive Positive ANTIBODY SCREEN -- Negative Brief Urine Lab Results (Last result in the past 365 days) Color Clarity Blood Leuk Est Nitrite Protein CREAT Urine [facility] [place] [facility] [place] 07/14/25 2243 Yellow Clear Small (1+) Trace Negative 30 mg/dL (1+) Microbiology Results Abnormal None CT Abdomen Pelvis Without Contrast Result Date: 07/19/2025 CT ABDOMEN PELVIS WO CONTRAST Date of Exam: 07/18/2025 6:31 PM EDT Indication: Elevated liver enzymes. The patient has a history of metastatic breast cancer Comparison: 06/10/2025. Technique: Axial CTimages were obtained of the abdomen and pelvis without the administration of contrast. Reconstructed coronal and sagittal images were also obtained. Automated exposure control and iterative construction methods were used. Findings: The exam is limited by noncontrasted technique, especially in evaluating the solid abdominal organs. There are bilateral nonobstructing renal stones. The largest stoneis in the inferior pole of the left kidney measuring 1.0 cm in diameter. This is stable when compared to the recent study. The liver parenchyma appears stable with no obvious mass. The gallbladder, adrenal glands, pancreas, and spleen are normal. The uterus, adnexal structures, and urinary bladder are normal. The patient has a large amount of stool in the rectum and colon. There is rectosigmoid colon fecal impaction. Several of the colonic bowel loops are dilated with stool. There is no pneumatosis or free air. There is no abnormal bowel wall thickening. The appendix is either small in size or surgically absent. The proximal stomach is distended with food material. There are no definite enlarged lymph nodes in the abdomen and pelvis. There are a few atherosclerotic vascular calcificationsin the abdominal aorta and also in the proximal renal arteries. There is mild scarring in the lung bases. There is widespread osteosclerotic metastatic disease. A few of the metastatic lesions withinthe visualized right ribs have an expansile destructive appearance. There is a stable pathologic fracture through the posterior aspect of the inferior endplate of L4 similar to before. The displaced fracture fragment extends into the anterior epidural space. There are compression deformities in thelower thoracic spine best demonstrated at T10. The appearance has not significantly changed from the previous CT. There are also underlying degenerative changes. Impression: Impression: 1.Bilateral nonobstructing renal stones. 2.Large amount of stool in the rectum and colon. There is rectosigmoid colon fecal impaction. Several of the colonic bowel loops are dilated with stool. 3.Widespread osteosclerotic metastatic disease. A few of the metastatic lesions within the visualized right ribs have an expansile destructive appearance. There is a stable pathologic fracture through the posterior aspect of the inferior endplate of L4 similar to before. The fracture fragment is displaced into the anterior epidural space. There are compression deformities in thelower thoracic spine best demonstrated at T10. The appearance has not significantly changed from the previous CT. 4.Additional findings as noted above. The exam is limited by noncontrasted technique,especially in excluding metastatic lesions within the solid abdominal organs. Electronically Signed: Floyd Singleton MD 07/19/2025 8:09 AM EDT Workstation ID: [id number] Results for orders placed during the hospital encounter of 08/25/24 Adult Transthoracic Echo Complete W/ Cont if Necessary Per Protocol 08/25/2024 4:54 PM Interpretation Summary Left ventricular systolic function is normal. Estimated left ventricular EF = 65% Normal global longitudinal LV strain (GLS) = -19.2% The cardiac valves are anatomically and functionally normal. I have personally reviewed the therapy plans: [] PT/OT/ ST Therapy Plans Current medications: Scheduled Meds:dexAMETHasone, 6 mg, Intravenous, Q6H donepezil, 10 mg, Oral, Nightly famotidine, 40 mg, Oral, Daily heparin (porcine), 5,000 Units, Subcutaneous, Q8H insulin glargine, 20 Units, Subcutaneous, Nightly Insulin Lispro, 10 Units, Subcutaneous, TID With Meals insulin lispro, 2-7 Units, Subcutaneous, 4x Daily AC & at Bedtime magnesium citrate, 150 mL, Oral, Once pharmacy consult - MTM, , Not Applicable, Daily memantine, 5 mg, Oral, BID Naloxegol Oxalate, 12.5 mg, Oral, Once senna-docusate sodium, 2 tablet, Oral, BID And polyethylene glycol, 17 g, Oral, Daily sodium chloride, 10 mL, Intravenous, Q12H Continuous Infusions: PRN Meds:. aluminum-magnesium hydroxide-simethicone senna-docusate sodium AND polyethylene glycol AND bisacodyl AND bisacodyl Calcium Replacement - Follow Nurse / BPA Driven Protocol dextrose dextrose glucagon (human recombinant) HYDROmorphone Magnesium Cardiology Dose Replacement - Follow Nurse / BPA Driven Protocol [DISCONTINUED] Morphine AND naloxone nitroglycerin ondansetron oxyCODONE Phosphorus Replacement - Follow Nurse / BPA Driven Protocol Potassium Replacement - Follow Nurse / BPA Driven Protocol sodium chloride sodium chloride Assessment & Plan Assessment & Plan Active Hospital Problems Diagnosis POA 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 Brief Hospital Course to date: Peter Parnell is a 65 y.o. female w stage IV breast cancer since 2019, DM2, anemia, who presented for evaluation of difficulty walking, multiple falls. MRI cervical spine consistent with intramedullary mass within the spinal cord at C6- 7 compatible with metastatic disease and is the likely source of patient's symptoms. Neurosurgery, oncology, radiation oncology consulted. Started on radiation treatment on 07/16. Also had worsening LFTs, so CT a/p obtained, which showed rectosigmoid colon fecal impaction. Enemas and bowel care increased. Stage IV breast cancer with mets to the brain, bone, spine, liver T12 lesion w cord compression C6-7 intramedullary metastasis -Radiation oncology following, plan for radiation on 07/16 and again on 07/19 -Neurosurgery followed; nonoperative management recommended -Oncology consulted -Neurochecks every 4 hours -Continue decadron IV every 6 hours per discussion with radiation oncology -PRN pain control, symptom management -PT/OT rec home w 22/04 care, -Here through the weekend at least per discussion w Rad/Onc given risk of spinal swelling w radiation. Status-post radiation treatment on 07/16. -Treatment on 07/19 w continued IV steroids through at least 07/19 --> discussed w pt Constipation w fecal impaction -add mag citrate/movantik x 1 today Hallucinations, potentially medication-induced +/- hospital delirium, now resolved -pain medications adjusted Pancytopenia in setting of malignancy and neratinib, improved -Monitor Hepatocellular transaminitis -Has known mets to liver Abnormal CT -B renal stones, fecal impaction noted, R rib mets, liver without masses CKD stage IIIb -monitor DM2 -adjust insulin Memory impairment -Donepezil, Namenda resumed Expected Discharge Location and Transportation: , 24/ care Expected Discharge Expected Discharge Date: 07/20/2025; Expected Discharge Time: VTE Prophylaxis: Pharmacologic & mechanical VTE prophylaxis orders are present. AM-PAC 6 Clicks Score (PT): 17 (07/19/252047) CODE STATUS: Code Status and Medical Interventions: CPR (Attempt to Resuscitate); Full Support Ordered at: 07/15/25 0203 Code Status (Patient has no pulse and is not breathing): CPR (Attempt to Resuscitate) Medical Interventions (Patient has pulse or is breathing): Full Support Level Of Support Discussed With: Patient Carl Shook MD 07/20/25 * Valentina Sadler MD - 07/19/2025 5:41 PM EDT HEMATOLOGY/ONCOLOGY PROGRESS NOTE S: Profoundly weak. Though patient reports some walking today. Minimal improvement. Past medical history, social history and family history was reviewed and unchanged from prior visit. Review of Systems: Review of Systems Medications: The current medication list was reviewed in the EMR ALLERGIES: Allergies[1] Physical Exam VITAL SIGNS: BP 122/53 (BP Location: Right arm, Patient Position: Lying) Pulse 76 Temp 97.5 ??F (36.4 ??C) (Oral) Resp 16 Ht 170.2 cm (67 ) Wt 72.1 kg (159 lb) SpO2 99% BMI 24.90 kg/m?? Temp: [97.5 ??F (36.4 ??C)-98.3 ??F (36.8 ??C)] 97.5 ??F (36.4 ??C) Performance Status:3 Physical Exam General: Weak appearing, in no acute distress HEENT: sclerae anicteric, neck is supple Lymphatics: no cervical, supraclavicular, or axillary adenopathy Extremities: no lower extremity edema Skin: no rashes, lesions, bruising, or petechiae Msk: Shows no weakness of the large muscle groups Psych: Mood is stable RECENT LABS: Lab Results Component Value Date HGB 8.2 (L) 07/19/2025 HCT 26.3 (L) 07/19/2025 MCV 82.4 07/19/2025 PLT 108 (L) 07/19/2025 WBC 5.03 07/19/2025 NEUTROABS 4.30 07/19/2025 LYMPHSABS 0.36 (L) 07/19/2025 MONOSABS 0.33 07/19/2025 EOSABS 0.00 07/19/2025 BASOSABS 0.00 07/19/2025 Lab Results Component Value Date GLUCOSE 223 (H) 07/19/2025 BUN 51.1 (H) 07/19/2025 CREATININE 1.50 (H) 07/19/2025 NA 140 07/19/2025 K 3.9 07/19/2025 CL 106 07/19/2025 CO2 19.6 (L) 07/19/2025 CALCIUM 9.4 07/19/2025 PROTEINTOT 6.8 07/19/2025 ALBUMIN 3.6 07/19/2025 BILITOT 0.4 07/19/2025 ALKPHOS 186 (H) 07/19/2025 AST 108 (H) 07/19/2025 ALT 131 (H) 07/19/2025 Assessment/Plan 1. Metastatic breast cancer with progressive brain and spinal mets. Undergoing palliative RT. Plan to reinitiate Enhertu once stable and completed radiotherapy. Disease outside the [employer] SYSTEM[employer] seems to be very controlled. Valentina Sadler MD [facility] Hematology and Oncology 07/19/2025 [1] No Known Allergies * Karen Ortiz MD - 07/19/2025 1:15 PM EDT Palliative Care Daily Progress Note Referring: Meaghan Guerrier C/C: pain improved. Numbness not quite as bad. S: Medical record reviewed. Events noted. Planned for XRT today. Reports feeling like bladder is emptying better. RN to check bladder scans today. ROS: pain, numbness and weakness all somewhat better O: Code Status: Code Status and Medical Interventions: CPR (Attempt to Resuscitate); Full Support Ordered at: 07/15/25 0203 Code Status (Patient has no pulse and is not breathing): CPR (Attempt to Resuscitate) Medical Interventions (Patient has pulse or is breathing): Full Support Level Of Support Discussed With: Patient Advanced Directives: Advance Directive Status: Patient does not have advance directive Goals of Care: Ongoing. Palliative Performance Scale Score: 40% BP 125/61 (BP Location: Right arm, Patient Position: Lying) Pulse 74 Temp 97.7 ??F (36.5 ??C) (Oral) Resp 16 Ht 170.2 cm (67 ) Wt 72.1 kg (159 lb) SpO2 99% BMI 24.90 kg/m?? Intake/Output Summary (Last 24 hours) at 07/19/2025 1315 Last data filed at 07/18/2025 1831 Gross per 24 hour Intake 200 ml Output -- Net 200 ml Physical Exam: General Appearance: Alert, cooperative, NAD HEENT: NC/AT, EOMI, anicteric, MMM, face relaxed Neck: supple, trachea midline, no JVD Lungs: CTA bilat, diminished in bases; respirations regular, even and unlabored Heart: RRR, normal S1 and S2, no M/R/G Abdomen: Normal bowel sounds, soft, nontender, nondistended G/U: Deferred MSK/Extremities: No clubbing , cyanosis or edema, No wasting Pulses: Pulses palpable and equal bilaterally Skin: Warm, dry, no mottling Neurologic: A/Ox3, cooperative, moves extremities x 4 - LLE 2/5, no tremor, nl tone Psych: Calm, appropriate Current Medications: Current Facility-Administered Medications: aluminum-magnesium hydroxide-simethicone (MAALOX MAX) 400-400-40 MG/5ML suspension 15 mL, 15 mL, Oral, Q6H PRN, Meaghan Guerrier MD sennosides-docusate (PERICOLACE) 8.6-50 MG per tablet 2 tablet, 2 tablet, Oral, BID AND polyethylene glycol (MIRALAX) packet 17 g, 17 g, Oral, Daily AND bisacodyl (DULCOLAX) EC tablet 5 mg, 5mg, Oral, Daily PRN AND bisacodyl (DULCOLAX) suppository 10 mg, 10 mg, Rectal, Daily PRN, Everton Lassiter MD Calcium Replacement - Follow Nurse / BPA Driven Protocol, , Not Applicable, PRN, Meaghan Guerrier MD dexAMETHasone (DECADRON) injection 6 mg, 6 mg, Intravenous, Q6H, Meaghan Guerrier MD, 6 mg at 07/19/25 1231 dextrose (D50W) (25 g/50 mL) IV injection 25 g, 25 g, Intravenous, Q15 Min PRN, Meaghan Guerrier MD dextrose (GLUTOSE) oral gel 15 g, 15 g, Oral, Q15 Min PRN, Meaghan Guerrier MD donepezil (ARICEPT) tablet 10 mg, 10 mg, Oral, Nightly, Everton Lassiter MD, 10 mg at 07/18/25 2127 famotidine (PEPCID) tablet 40 mg, 40 mg, Oral, Daily, Meaghan Guerrier MD, 40 mg at 07/19/25 1016 glucagon (GLUCAGEN) injection 1 mg, 1 mg, Intramuscular, Q15 Min PRN, Meaghan Guerrier MD heparin (porcine) 5000 UNIT/ML injection 5,000 Units, 5,000 Units, Subcutaneous, Q8H, Everton Lassiter MD, 5,000 Units at 07/19/25 0508 HYDROmorphone (DILAUDID) injection 0.25 mg, 0.25 mg, Intravenous, Q2H PRN, Everton Lassiter MD insulin glargine (LANTUS, SEMGLEE) injection 20 Units, 20 Units, Subcutaneous, Nightly, Everton Lassiter MD Insulin Lispro (humaLOG) injection 10 Units, 10 Units, Subcutaneous, TID With Meals, Everton Lassiter MD, 10 Units at 07/19/25 1232 Insulin Lispro (humaLOG) injection 2-7 Units, 2-7 Units, Subcutaneous, 4x Daily AC & at Bedtime, Everton Lassiter MD, 4 Units at 07/19/25 1230 lactulose (CHRONULAC) solution for enema 300 mL, 300 mL, Rectal, Once, Everton Lassiter MD Magnesium Cardiology Dose Replacement - Follow Nurse / BPA Driven Protocol, , Not Applicable, PRN, Meaghan Guerrier MD Med Rec Consult, , Not Applicable, Daily, Everton Lassiter MD memantine (NAMENDA) tablet 5 mg, 5 mg, Oral, BID, Everton Lassiter MD, 5 mg at 07/19/25 1016 [DISCONTINUED] morphine injection 2 mg, 2 mg, Intravenous, Q4H PRN AND naloxone (NARCAN) injection 0.4 mg, 0.4 mg, Intravenous, Q5 Min PRN, Meaghan Guerrier MD nitroglycerin (NITROSTAT) SL tablet 0.4 mg, 0.4 mg, Sublingual, Q5 Min PRN, Meaghan Guerrier MD ondansetron (ZOFRAN) injection 4 mg, 4 mg, Intravenous, Q6H PRN, Meaghan Guerrier MD oxyCODONE (ROXICODONE) immediate release tablet 7.5 mg, 7.5 mg, Oral, Q6H PRN, Everton Lassiter MD, 7.5 mg at 07/18/25 2132 Phosphorus Replacement - Follow Nurse / BPA Driven Protocol, , Not Applicable, PRJason Keene Jennifer, MD Potassium Replacement - Follow Nurse / BPA Driven Protocol, , Not Applicable, PRNJason Jennifer, MD sodium chloride 0.9 % flush 10 mL, 10 mL, Intravenous, Q12H, Meaghan Guerrier MD, 10 mL at 07/19/25 1016 sodium chloride 0.9 % flush 10 mL, 10 mL, Intravenous, PRN, Meaghan Guerrier MD sodium chloride 0.9 % infusion 40 mL, 40 mL, Intravenous, PRYecenia, Meaghan Guerrier MD Labs: Results from last 7 days Lab Units 07/19/25 0634 WBC 10*3/mm3 5.03 HEMOGLOBIN g/dL 8.2* HEMATOCRIT % 26.3* PLATELETS 10*3/mm3 108* Results from last 7 days Lab Units 07/19/25 0634 SODIUM mmol/L 140 POTASSIUM mmol/L 3.9 CHLORIDE mmol/L 106 CO2 mmol/L 19.6* BUN mg/dL 51.1* CREATININE mg/dL 1.50* CALCIUM mg/dL 9.4 BILIRUBIN mg/dL 0.4 ALK PHOS U/L 186* ALT (SGPT) U/L 131* AST (SGOT) U/L 108* GLUCOSE mg/dL 223* Imaging Results (Last 72 Hours) Procedure Component Value Units Date/Time CT Abdomen Pelvis Without Contrast [[id number]] Collected: 07/19/25 0749 Updated: 07/19/25811 Narrative: CT ABDOMEN PELVIS WO CONTRAST Date of Exam: 07/18/2025 6:31 PM EDT Indication: Elevated liver enzymes. The patient has a history of metastatic breast cancer Comparison: 06/10/2025. Technique: Axial CT images were obtained of the abdomen and pelvis without the administration of contrast. Reconstructed coronal and sagittal images were also obtained. Automated exposure control anditerative construction methods were used. Findings: The exam is limited by noncontrasted technique, especially in evaluating the solid abdominal organs. There are bilateral nonobstructing renal stones. The largest stone is in the inferior pole of the left kidney measuring 1.0 cm in diameter. This is stable when compared to the recent study. The liver parenchyma appears stable with no obvious mass. The gallbladder, adrenal glands, pancreas, and spleen are normal. The uterus, adnexal structures, and urinary bladder are normal. The patient has a large amount of stool in the rectum and colon. There is rectosigmoid colon fecal impaction. Several ofthe colonic bowel loops are dilated with stool. There is no pneumatosis or free air. There is no abnormal bowel wall thickening. The appendix is either small in size or surgically absent. The proximal stomach is distended with food material. There are no definite enlarged lymph nodes in the abdomen and pelvis. There are a few atherosclerotic vascular calcifications in the abdominal aorta and also in the proximal renal arteries. There is mild scarring inthe lung bases. There is widespread osteosclerotic metastatic disease. A few of the metastatic lesions within the visualized right ribs have an expansile destructive appearance. There is a stable pathologic fracture through the posterior aspect of the inferior endplate of L4 similar to before. The displaced fracture fragment extends into the anterior epidural space. There are compression deformities in the lower thoracic spine best demonstrated at T10. The appearance has not significantly changed from the previous CT. There are also underlying degenerative changes. Impression: Impression: 1.Bilateral nonobstructing renal stones. 2.Large amount of stool in the rectum and colon. There is rectosigmoid colon fecal impaction. Several of the colonic bowel loops are dilated with stool. 3.Widespread osteosclerotic metastatic disease. A few of the metastatic lesions within the visualized right ribs have an expansile destructive appearance. There is a stable pathologic fracture through the posterior aspect of the inferior endplate of L4 similar to before. The fracture fragment is displaced into the anterior epidural space. There are compression deformities in the lower thoracic spine best demonstrated at T10. The appearance has not significantly changed from the previous CT. 4.Additional findings as noted above. The exam is limited by noncontrasted technique, especially inexcluding metastatic lesions within the solid abdominal organs. Electronically Signed: Floyd Singleton MD 07/19/2025 8:09 AM EDT Workstation ID: [id number] XR Knee 1 or 2 View Left [[id number]] Collected: 07/17/25 1300 Updated: 07/17/25 1305 Narrative: XR KNEE 1 OR 2 VW LEFT Date of Exam: 07/17/2025 11:32 AM EDT Indication: Left knee effusion. Comparison: 05/01/2018. FINDINGS: No fracture is identified. Mineralization and alignment appear within normal limits. Softtissues appear unremarkable. Mild tricompartmental osteophyte formation. Joint spaces appear preserved. Small suprapatellar effusion. Impression: 1.Small suprapatellar effusion. 2.Mild tricompartmental osteophyte formation without definite joint space narrowing. Electronically Signed: Shahriar Ines 07/17/2025 1:02 PM EDT Workstation ID: [id number] Lab 07/15/25 0918 HEMOGLOBIN A1C 5.83* Diagnostics: Reviewed A: Spinal cord mass Breast cancer metastasized to bone Falls Anemia, chronic disease Thrombocytopenia Stage 3b chronic kidney disease Moderate protein-calorie malnutrition Impression: Metastatic breast CA Intraspinal mass Cspine per MRI Anemia CKD Symptoms: Weakness Urinary retention- ?neuro bladder Debility P: Continue current meds and plan. Monitor bladder scan results. Palliative Care Team will continue tofollow patient. Karen Ortiz MD, 07/19/2025, 13:15 EDT * Everton Lassiter MD - 07/19/2025 7:34 AM EDT Images from the original note were not included. [facility] PROGRESS NOTE Patient Name: Peter Parnell : 1960 Date of Admission: 2025 Primary Care Physician: Loretta Landon MD Subjective Subjective CC: Neck pain, difficulty walking HPI: Had 2 BM. No N/V. No abdominal pain. No chest pain or SOA. BG 434 overnight. Pt reported she ate food late last night. Reports her left thigh numbness is getting better Objective Objective Vital Signs: Temp: [97.2 ??F (36.2 ??C)-98.3 ??F (36.8 ??C)] 98.3 ??F (36.8 ??C) Heart Rate: [71-95] 74 Resp: [18] 18 BP: (120-138)/(54-68) 132/68 Physical Exam: Constitutional: No acute distress, awake, alert, chronically ill-appearing HENT: NCAT, mucous membranes moist Respiratory: Clear to auscultation bilaterally, respiratory effort normal Cardiovascular: RRR Gastrointestinal: Positive bowel sounds, soft, nontender, nondistended Musculoskeletal: No bilateral ankle edema, left knee with effusion, no warmth, nontender to palpation, no erythema Psychiatric: Appropriate affect, cooperative Neurologic: Alert, oriented, conversant, speech clear, left lower extremity weakness stable from yesterday Skin: No rashes Results Reviewed: LAB RESULTS: Lab 07/18/2560707/[id number]/15/[id number]/[id number] WBC 5.26 6.18 2.72* 4.79 HEMOGLOBIN 7.8* 8.3* 8.5* 8.1* HEMATOCRIT 25.2* 27.2* 27.9* 26.7* PLATELETS 85* 110* 69* 90* NEUTROS ABS 4.52 5.52 2.40 3.90 IMMATURE GRANS (ABS) 0.06* 0.03 0.01 0.02 LYMPHS ABS 0.36* 0.38* 0.26* 0.44* MONOS ABS 0.32 0.25 0.05* 0.40 EOS ABS 0.00 0.00 0.00 0.02 MCV 81.8 82.9 84.5 84.2 Lab 07/18/[id number] SODIUM 138 140 139 142 POTASSIUM 4.1 4.0 4.0 4.3 CHLORIDE 103 103 104 103 CO2 22.0 24.6 23.3 25.5 ANION GAP 13.0 12.4 11.7 13.5 BUN 53.0* 30.4* 25.7* 27.0* CREATININE 1.64* 1.51* 1.47* 1.66* EGFR 34.8* 38.4* 39.7* 34.3* GLUCOSE 258* 212* 182* 133* CALCIUM 9.4 10.0 9.6 9.8 MAGNESIUM -- 2.9* 1.5* -- PHOSPHORUS -- 3.6 3.6 -- HEMOGLOBIN A1C -- -- 5.83* -- Lab 07/18/25 0608 07/16/25 0819 07/15/25 0918 07/14/25 2206 TOTAL PROTEIN 6.7 8.0 7.4 7.3 ALBUMIN 3.7 4.1 3.9 4.0 GLOBULIN 3.0 3.9 3.5 3.3 ALT (SGPT) 115* 38* 27 28 AST (SGOT) 118* 57* 43* 40* BILIRUBIN 0.3 0.4 0.4 0.4 ALK PHOS 180* 155* 144* 151* Lab 07/16/25 0819 07/15/25 0918 ABO TYPING O O RH TYPING Positive Positive ANTIBODY SCREEN -- Negative Brief Urine Lab Results (Last result in the past 365 days) Color Clarity Blood Leuk Est Nitrite Protein CREAT Urine HCG 07/14/25 2243 Yellow Clear Small (1+) Trace Negative 30 mg/dL (1+) Microbiology Results Abnormal None XR Knee 1 or 2 View Left Result Date: 07/17/2025 XR KNEE 1 OR 2 VW LEFT Date of Exam: 07/17/2025 11:32 AM EDT Indication: Left knee effusion. Comparison: 05/01/2018. FINDINGS: No fracture is identified. Mineralization and alignment appear within normal limits. Soft tissues appear unremarkable. Mild tricompartmental osteophyte formation. Joint spaces appear preserved. Small suprapatellar effusion. Impression: 1.Small suprapatellar effusion. 2.Mild tricompartmental osteophyte formation without definite joint space narrowing. Electronically Signed: Shahriar Chacon 07/17/2025 1:02 PM EDT WorkstationID: [id number] Results for orders placed during the hospital encounter of 08/25/24 Adult Transthoracic Echo Complete W/ Cont if Necessary Per Protocol 08/25/2024 4:54 PM Interpretation Summary Left ventricular systolic function is normal. Estimated left ventricular EF = 65% Normal global longitudinal LV strain (GLS) = -19.2% The cardiac valves are anatomically and functionally normal. I have personally reviewed the therapy plans: [] PT/OT/ ST Therapy Plans Current medications: Scheduled Meds:dexAMETHasone, 6 mg, Intravenous, Q6H donepezil, 10 mg, Oral, Nightly famotidine, 40 mg, Oral, Daily heparin (porcine), 5,000 Units, Subcutaneous, Q8H insulin glargine, 20 Units, Subcutaneous, Nightly Insulin Lispro, 10 Units, Subcutaneous, TID With Meals insulin lispro, 2-7 Units, Subcutaneous, 4x Daily AC & at Bedtime pharmacy consult - MTM, , Not Applicable, Daily memantine, 5 mg, Oral, BID sodium chloride, 10 mL, Intravenous, Q12H Continuous Infusions: PRN Meds:. aluminum-magnesium hydroxide-simethicone senna-docusate sodium AND polyethylene glycol AND bisacodyl AND bisacodyl Calcium Replacement - Follow Nurse / BPA Driven Protocol dextrose dextrose glucagon (human recombinant) HYDROmorphone Magnesium Cardiology Dose Replacement - Follow Nurse / BPA Driven Protocol [DISCONTINUED] Morphine AND naloxone nitroglycerin ondansetron oxyCODONE Phosphorus Replacement - Follow Nurse / BPA Driven Protocol Potassium Replacement - Follow Nurse / BPA Driven Protocol sodium chloride sodium chloride Assessment & Plan Assessment & Plan Active Hospital Problems Diagnosis POA 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 Brief Hospital Course to date: Peter Parnell is a 65 y.o. female w stage IV breast cancer since 2019, DM2, anemia, who presented for evaluation of difficulty walking, multiple falls. MRI cervical spine consistent with intramedullary mass within the spinal cord at C6- 7 compatible with metastatic disease and is the likely source of patient's symptoms. Neurosurgery, oncology, radiation oncology consulted. Started on radiation treatment on 07/16. Also had worsening LFTs, so CT a/p obtained, which showed rectosigmoid colon fecal impaction. Enemas and bowel care increased. Stage IV breast cancer with mets to the brain, bone, spine, liver T12 lesion w cord compression C6-7 intramedullary metastasis -Radiation oncology following, plan for radiation on 07/16 and again on 07/19 -Neurosurgery followed; nonoperative management recommended -Oncology consulted -Neurochecks every 4 hours -Continue decadron IV every 6 hours per discussion with radiation oncology -PRN pain control, symptom management -PT/OT rec home w 22/04 care, -Here through the weekend at least per discussion w Rad/Onc given risk of spinal swelling w radiation. Status-post radiation treatment on 07/16. -Treatment on 07/19 w continued IV steroids through at least 07/19 --> discussed w pt -Discussed w oncology and will hold off on Nerlynx given pt had disease progression on this Constipation w fecal impaction -Reviewed CT imaging w pt in the room - showing her the imaging -PO bowel care + multiple enemas ordered -Discussed w pt that she needs to have multiple BM and may have overflow diarrhea Hallucinations, potentially medication-induced +/- hospital delirium, now resolved -Discontinued Lyrica &as needed benzodiazepine and changed [place] to as needed Roxicodone ---> and symptoms have currently resolved Pancytopenia in setting of malignancy and neratinib, improved -Monitor Hepatocellular transaminitis -Has known mets to liver -CT abdomen/pelvis pending; discussed w pt CKD stage IIIb -Baseline Cr 1-1.6 -Monitor DM2-SSI Memory impairment- Donepezil, Namenda resumed Patients' mobility limitations impair their ability to participate in activities such as toileting,feeding, dressing, grooming, and bathing. Mobility limitations cannot be resolved by a cane or walker. The patient is able to safely use a manual wheelchair, and she will also have a caregiver in thehome as well to help assist with the patient maneuvering. Expected Discharge Location and Transportation: , 22/04 care Expected Discharge Expected Discharge Date: 07/20/2025; Expected Discharge Time: VTE Prophylaxis: Pharmacologic & mechanical VTE prophylaxis orders are present. AM-PAC 6 Clicks Score (PT): 17 (07/18/25 2132) CODE STATUS: Code Status and Medical Interventions: CPR (Attempt to Resuscitate); Full Support Ordered at: 07/15/25 0203 Code Status (Patient has no pulse and is not breathing): CPR (Attempt to Resuscitate) Medical Interventions (Patient has pulse or is breathing): Full Support Level Of Support Discussed With: Patient Everton Lassiter MD 07/19/25 * Everton Lassiter MD - 07/18/2025 8:53 AM EDT Images from the original note were not included. [facility] PROGRESS NOTE Patient Name: Peter Parnell : 1960 Date of Admission: 2025 Primary Care Physician: Loretta Landon MD Subjective Subjective CC: Neck pain, difficulty walking HPI: Had BM overnight. Had poor sleep. Feels like her walking is improving. No chest pain or SOA. No N/V. No abdominal pain. Objective Objective Vital Signs: Temp: [97.3 ??F (36.3 ??C)-98.2 ??F (36.8 ??C)] 98.2 ??F (36.8 ??C) Heart Rate: [65-104] 95 Resp: [18] 18 BP: (102-154)/(54-83) 120/54 Physical Exam: Constitutional: No acute distress, awake, alert, chronically ill-appearing HENT: NCAT, mucous membranes moist Respiratory: Clear to auscultation bilaterally, respiratory effort normal Cardiovascular: RRR Gastrointestinal: Positive bowel sounds, soft, nontender, nondistended Musculoskeletal: No bilateral ankle edema, left knee with effusion, no warmth, nontender to palpation, no erythema Psychiatric: Appropriate affect, cooperative Neurologic: Alert, oriented, conversant, speech clear, left lower extremity weakness mildly improved compared to yesterday Skin: No rashes Results Reviewed: LAB RESULTS: Lab 07/18/25 0608 07/16/25 0807/15/2518 07/14/25 2206 WBC 5.26 6.18 2.72* 4.79 HEMOGLOBIN 7.8* 8.3* 8.5* 8.1* HEMATOCRIT 25.2* 27.2* 27.9* 26.7* PLATELETS 85* 110* 69* 90* NEUTROS ABS 4.52 5.52 2.40 3.90 IMMATURE GRANS (ABS) 0.06* 0.03 0.01 0.02 LYMPHS ABS 0.36* 0.38* 0.26* 0.44* MONOS ABS 0.32 0.25 0.05* 0.40 EOS ABS 0.00 0.00 0.00 0.02 MCV 81.8 82.9 84.5 84.2 Lab 07/18/25 0608 07/16/25 0819 07/15/2518 07/14/25 2206 SODIUM 138 140 139 142 POTASSIUM 4.1 4.0 4.0 4.3 CHLORIDE 103 103 104 103 CO2 22.0 24.6 23.3 25.5 ANION GAP 13.0 12.4 11.7 13.5 BUN 53.0* 30.4* 25.7* 27.0* CREATININE 1.64* 1.51* 1.47* 1.66* EGFR 34.8* 38.4* 39.7* 34.3* GLUCOSE 258* 212* 182* 133* CALCIUM 9.4 10.0 9.6 9.8 MAGNESIUM -- 2.9* 1.5* -- PHOSPHORUS -- 3.6 3.6 -- HEMOGLOBIN A1C -- -- 5.83* -- Lab 07/18/25 0608 07/16/25 0819 07/15/2518 07/14/25 2206 TOTAL PROTEIN 6.7 8.0 7.4 7.3 ALBUMIN 3.7 4.1 3.9 4.0 GLOBULIN 3.0 3.9 3.5 3.3 ALT (SGPT) 115* 38* 27 28 AST (SGOT) 118* 57* 43* 40* BILIRUBIN 0.3 0.4 0.4 0.4 ALK PHOS 180* 155* 144* 151* Lab 07/16/25 0819 07/15/25917 ABO TYPING O O RH TYPING Positive Positive ANTIBODY SCREEN -- Negative Brief Urine Lab Results (Last result in the past 365 days) Color Clarity Blood Leuk Est Nitrite Protein CREAT Urine HCG 07/14/25 2243 Yellow Clear Small (1+) Trace Negative 30 mg/dL (1+) Microbiology Results Abnormal None XR Knee 1 or 2 View Left Result Date: 07/17/2025 XR KNEE 1 OR 2 VW LEFT Date of Exam: 07/17/2025 11:32 AM EDT Indication: Left knee effusion. Comparison: 05/01/2018. FINDINGS: No fracture is identified. Mineralization and alignment appear within normal limits. Soft tissues appear unremarkable. Mild tricompartmental osteophyte formation. Joint spaces appear preserved. Small suprapatellar effusion. Impression: 1.Small suprapatellar effusion. 2.Mild tricompartmental osteophyte formation without definite joint space narrowing. Electronically Signed: Shahriar Chacon 07/17/2025 1:02 PM EDT WorkstationID: [id number] Results for orders placed during the hospital encounter of 08/25/24 Adult Transthoracic Echo Complete W/ Cont if Necessary Per Protocol 08/25/2024 4:54 PM Interpretation Summary Left ventricular systolic function is normal. Estimated left ventricular EF = 65% Normal global longitudinal LV strain (GLS) = -19.2% The cardiac valves are anatomically and functionally normal. I have personally reviewed the therapy plans: [] PT/OT/ ST Therapy Plans Current medications: Scheduled Meds:dexAMETHasone, 6 mg, Intravenous, Q6H donepezil, 10 mg, Oral, Nightly famotidine, 40 mg, Oral, Daily heparin (porcine), 5,000 Units, Subcutaneous, Q8H insulin glargine, 10 Units, Subcutaneous, Nightly insulin lispro, 2-7 Units, Subcutaneous, 4x Daily AC & at Bedtime Insulin Lispro, 5 Units, Subcutaneous, TID With Meals pharmacy consult - MTM, , Not Applicable, Daily memantine, 5 mg, Oral, BID sodium chloride, 10 mL, Intravenous, Q12H Continuous Infusions: PRN Meds:. aluminum-magnesium hydroxide-simethicone senna-docusate sodium AND polyethylene glycol AND bisacodyl AND bisacodyl Calcium Replacement - Follow Nurse / BPA Driven Protocol dextrose dextrose glucagon (human recombinant) HYDROmorphone Magnesium Cardiology Dose Replacement - Follow Nurse / BPA Driven Protocol [DISCONTINUED] Morphine AND naloxone nitroglycerin ondansetron oxyCODONE Phosphorus Replacement - Follow Nurse / BPA Driven Protocol Potassium Replacement - Follow Nurse / BPA Driven Protocol sodium chloride sodium chloride Assessment & Plan Assessment & Plan Active Hospital Problems Diagnosis POA Cauda equina syndrome [G83.4] Yes Falls [R29.6] Not Applicable Anemia, chronic disease [D63.8] Yes Thrombocytopenia [D69.6] Yes Stage 3b chronic kidney disease [N18.32] Yes Moderate protein-calorie malnutrition [E44.0] Yes Breast cancer metastasized to bone [C50.919, C79.51] Yes Resolved Hospital Problems No resolved problems to display. Brief Hospital Course to date: Peter Parnell is a 65 y.o. female w stage IV breast cancer since 2019, DM2, anemia, who presented for evaluation of difficulty walking, multiple falls. MRI cervical spine consistent with intramedullary mass within the spinal cord at C6- 7 compatible with metastatic disease and is the likely source of patient's symptoms. Neurosurgery, oncology, radiation oncology consulted. Stage IV breast cancer with mets to the brain, bone, spine, liver T12 lesion w cord compression C6-7 intramedullary metastasis -Radiation oncology following, plan for radiation on 07/16 and again on 07/19 -Neurosurgery followed; nonoperative management recommended -Oncology consulted -Neurochecks every 4 hours -Continue decadron IV every 6 hours per discussion with radiation oncology -PRN pain control, symptom management -PT/OT rec home w 22/04 care, HH -Here through the weekend at least per discussion w Rad/Onc given risk of spinal swelling w radiation. Status-post radiation treatment on 07/16. -Treatment on 07/19 w continued IV steroids through at least 07/19 --> discussed w pt -Discussed w oncology and will hold off on Nerlynx given pt had disease progression on this Hallucinations, potentially medication-induced +/- hospital delirium, now resolved -Discontinued Lyrica &as needed benzodiazepine and changed [place] to as needed Roxicodone ---> and symptoms have currently resolved Pancytopenia in setting of malignancy and neratinib, improved -Monitor Transaminitis -Worsening; has known mets to liver -CT abdomen/pelvis pending; discussed w pt Constipation -Increased bowel care and had BM CKD stage IIIb -Baseline Cr 1-1.6 -Monitor DM2-SSI Memory impairment- Donepezil, Namenda resumed Patients' mobility limitations impair their ability to participate in activities such as toileting,feeding, dressing, grooming, and bathing. Mobility limitations cannot be resolved by a cane or walker. The patient is able to safely use a manual wheelchair, and she will also have a caregiver in thehome as well to help assist with the patient maneuvering. Expected Discharge Location and Transportation: [facility] 22/04 care Expected Discharge Expected Discharge Date: 07/20/2025; Expected Discharge Time: VTE Prophylaxis: Pharmacologic & mechanical VTE prophylaxis orders are present. AM-PAC 6 Clicks Score (PT): 17 (07/18/25 1027) CODE STATUS: Code Status and Medical Interventions: CPR (Attempt to Resuscitate); Full Support Ordered at: 07/15/25 0203 Code Status (Patient has no pulse and is not breathing): CPR (Attempt to Resuscitate) Medical Interventions (Patient has pulse or is breathing): Full Support Level Of Support Discussed With: Patient Everton Lassiter MD 07/18/25 * Crow Rouse MD - 07/17/2025 8:49 AM EDT RADIATION ONCOLOGY NOTE PATIENT: Peter Parnell : 1960 DIAGNOSIS: Malignant neoplasm of upper-outer quadrant of left breast in female, estrogen receptor positive - Stage IIA (T1b, N1, M0) CURRENT DOSE OF RADIATION: 4 Gy out of a planned 20 Gy NUMBER OF REMAINING TREATMENTS: 4 INTERVAL HISTORY: No events overnight. Please. States she has experienced no pain, headaches, or any other symptoms. Also states she had a better night with less hallucinations/bad dreams. MEDICATIONS: Medication reconciliation for the patient was reviewed and confirmed in the electronicmedical record. KPS 70% Physical Exam Vitals and nursing note reviewed. Constitutional: General: She is not in acute distress. Appearance: She is well-developed. HENT: Head: Normocephalic and atraumatic. Eyes: Conjunctiva/sclera: Conjunctivae normal. Pupils: Pupils are equal, round, and reactive to light. Cardiovascular: Rate and Rhythm: Normal rate and regular rhythm. Heart sounds: No murmur heard. No friction rub. Pulmonary: Effort: Pulmonary effort is normal. Breath sounds: Normal breath sounds. No wheezing. Abdominal: General: Bowel sounds are normal. There is no distension. Palpations: Abdomen is soft. There is no mass. Tenderness: There is no abdominal tenderness. Musculoskeletal: General: Normal range of motion. Cervical back: Normal range of motion and neck supple. Lymphadenopathy: Cervical: No cervical adenopathy. Skin: General: Skin is warm and dry. Neurological: Mental Status: She is alert and oriented to person, place, and time. Cranial Nerves: No cranial nerve deficit. Motor: Weakness present. Gait: Gait abnormal. Comments: No change in baseline strength. Left lower extremity 3/5 to hip, knee, ankle flexion and extension, including 3/5 strength in left distal upper extremity. Right upper and lower extremities 5/5. Reflexes unchanged. Psychiatric: Behavior: Behavior normal. Thought Content: Thought content normal. Judgment: Judgment normal. VITAL SIGNS: Vitals: 07/16/25 1900 07/16/25 2249 07/17/25 0607 07/17/25 0609 BP: 130/63 136/69 136/69 BP Location: Right arm Right arm Right arm Patient Position: Lying Lying Lying Pulse: 81 67 74 Resp: 16 16 18 16 Temp: 97.4 ??F (36.3 ??C) 97.5 ??F (36.4 ??C) 97.3 ??F (36.3 ??C) TempSrc: Oral Oral Oral SpO2: 100% Weight: Height: The following portions of the patient's history were reviewed and updated as appropriate: allergies, current medications, past family history, past medical history, past social history, past surgicalhistory and problem list. IMPRESSION/PLAN: Mrs. Jackson is a 65-year-old female with metastatic HER2 positive breast cancer with an intramedullary C6-7 metastasis. She has completed her first fraction of radiation and I am pleased that she has not had any treatment induced swelling causing her any further decline in her strength. I recommend that we continue her on high-dose steroids and she will continue radiation treatments on Saturday. Crow Rouse MD * Everton Lassiter MD - 07/17/2025 8:19 AM EDT Images from the original note were not included. [facility] PROGRESS NOTE Patient Name: Peter Parnell : 1960 Date of Admission: 2025 Primary Care Physician: Loretta Landon MD Subjective Subjective CC: Neck pain, difficulty walking HPI: Reports her hallucinations resolved and she slept well overnight. Ate breakfast. Has similar left lower extremity tingling and similar weakness to prior to hospitalization. Does report left knee discomfort and swelling. Objective Objective Vital Signs: Temp: [97.2 ??F (36.2 ??C)-97.6 ??F (36.4 ??C)] 97.2 ??F (36.2 ??C) Heart Rate: [67-81] 78 Resp: [16-18] 18 BP: (111-143)/(63-79) 111/77 Physical Exam: Constitutional: No acute distress, awake, alert HENT: NCAT, mucous membranes moist Respiratory: Clear to auscultation bilaterally, respiratory effort normal Cardiovascular: RRR Gastrointestinal: Positive bowel sounds, soft, nontender, nondistended Musculoskeletal: No bilateral ankle edema, left knee with effusion, no warmth, nontender to palpation, no erythema Psychiatric: Appropriate affect, cooperative Neurologic: Alert, oriented, conversant, speech clear, left lower extremity weakness Skin: No rashes Results Reviewed: LAB RESULTS: Lab 07/16/25 0819 07/15/25 0918 07/14/25 2206 WBC 6.18 2.72* 4.79 HEMOGLOBIN 8.3* 8.5* 8.1* HEMATOCRIT 27.2* 27.9* 26.7* PLATELETS 110* 69* 90* NEUTROS ABS 5.52 2.40 3.90 IMMATURE GRANS (ABS) 0.03 0.01 0.02 LYMPHS ABS 0.38* 0.26* 0.44* MONOS ABS 0.25 0.05* 0.40 EOS ABS 0.00 0.00 0.02 MCV 82.9 84.5 84.2 Lab 07/16/25 0819 07/15/25 0918 07/14/25 2206 SODIUM 140 139 142 POTASSIUM 4.0 4.0 4.3 CHLORIDE 103 104 103 CO2 24.6 23.3 25.5 ANION GAP 12.4 11.7 13.5 BUN 30.4* 25.7* 27.0* CREATININE 1.51* 1.47* 1.66* EGFR 38.4* 39.7* 34.3* GLUCOSE 212* 182* 133* CALCIUM 10.0 9.6 9.8 MAGNESIUM 2.9* 1.5* -- PHOSPHORUS 3.6 3.6 -- HEMOGLOBIN A1C -- 5.83* -- Lab 07/16/25 0819 07/15/25 0918 07/14/25 2206 TOTAL PROTEIN 8.0 7.4 7.3 ALBUMIN 4.1 3.9 4.0 GLOBULIN 3.9 3.5 3.3 ALT (SGPT) 38* 27 28 AST (SGOT) 57* 43* 40* BILIRUBIN 0.4 0.4 0.4 ALK PHOS 155* 144* 151* Lab 07/16/25 0819 07/15/2518 ABO TYPING O O RH TYPING Positive Positive ANTIBODY SCREEN -- Negative Brief Urine Lab Results (Last result in the past 365 days) Color Clarity Blood Leuk Est Nitrite Protein CREAT Urine HCG 07/14/25 2243 Yellow Clear Small (1+) Trace Negative 30 mg/dL (1+) Microbiology Results Abnormal None MRI Cervical Spine With & Without Contrast Result Date: 07/15/2025 MRI CERVICAL SPINE W WO CONTRAST Date of Exam: 07/15/2025 12:15 PM EDT Indication: eval cord compression. Breast cancer Comparison: CT cervical spine from 2025 and MRI cervical spine fromDecember 18, 2019 Technique: Routine multiplanar/multisequence sequence images of the cervical spine were obtained before and after the uneventful administration of Vueway. Findings: The alignment is anatomic. The craniocervical junction appears intact. Several sclerotic osseous metastasis are present, better characterized on recent prior CT. The cervical vertebral body heights appear normal. There is a mild chronic superior endplate compression deformity at T1. There is disc desiccation at all levels. The partially visualized posterior fossa contents are unremarkable. There is diffuse T2 hyperintensity within the spinal cord extending from the level of C1 inferiorly through the visualized upper thoracic spine. In addition, there is a 1.2 x 0.8 x 2.5 cm (TR X AP X CC) heterogeneously enhancing mass within the spinal canal at the C6-7 level, which appears to be intramedullary. These are newfindings from prior MRI from 2021. C2-3: Small central disc protrusion. Mild bilateral facet arthropathy. No spinal canal stenosis. No neural foraminal stenosis. C3-4: Moderate central disc protrusion. Moderate bilateral facet arthropathy. Moderate right uncovertebral hypertrophy. Mild spinal canalstenosis. Severe right neural foraminal stenosis. C4-5: Mild disc osteophyte complex with superimposed small central disc protrusion. Moderate bilateral facet arthropathy. Moderate right and mild left uncovertebral hypertrophy. Mild spinal canal stenosis. Mild right and moderate left neural foraminal stenosis. C5-6: Moderate central disc protrusion. Moderate bilateral facet arthropathy. Mild bilateral uncovertebral hypertrophy. Moderate spinal canal stenosis. Mild right neural foraminal stenosis. C6-7: Mild disc bulge with superimposed tiny central disc protrusion. Moderate bilateral facet arthropathy. Mild right and moderate left uncovertebral hypertrophy. Mild spinal canal stenosis. Mild bilateral neural foraminal stenosis. C7-T1: No spinal canal or neural foraminal stenosis. Impression: Impression: 1.2.5 cm heterogeneously enhancing mass within spinal canal at the C6-7 level, which appears to be intramedullary. There is diffuse T2 hyperintensity within the spinal cord extending from the level of C1 inferiorly through the visualized upper thoracic spine. These are new findings from prior MRI from 2021. Findings are concerning for metastasis, with primary spinal cord neoplasm felt less likely. 2.Several sclerotic osseous metastasis, better characterized on recent prior CT. 3.Moderate multilevel degenerative changes of cervical spine as described above. Electronically Signed: Gabino Peace MD 07/15/2025 2:45 PM EDT Workstation ID: [id number] Results for orders placed during the hospital encounter of 08/25/24 Adult Transthoracic Echo Complete W/ Cont if Necessary Per Protocol 08/25/2024 4:54 PM Interpretation Summary Left ventricular systolic function is normal. Estimated left ventricular EF = 65% Normal global longitudinal LV strain (GLS) = -19.2% The cardiac valves are anatomically and functionally normal. I have personally reviewed the therapy plans: [] PT/OT/ ST Therapy Plans Current medications: Scheduled Meds:senna-docusate sodium, 2 tablet, Oral, BID And polyethylene glycol, 17 g, Oral, Daily And bisacodyl, 10 mg, Oral, Daily dexAMETHasone, 6 mg, Intravenous, Q6H donepezil, 10 mg, Oral, Nightly famotidine, 40 mg, Oral, Daily insulin lispro, 2-7 Units, Subcutaneous, 4x Daily AC & at Bedtime pharmacy consult - MTM, , Not Applicable, Daily memantine, 5 mg, Oral, BID sodium chloride, 10 mL, Intravenous, Q12H Continuous Infusions: PRN Meds:. aluminum-magnesium hydroxide-simethicone senna-docusate sodium AND polyethylene glycol AND bisacodyl AND bisacodyl Calcium Replacement - Follow Nurse / BPA Driven Protocol dextrose dextrose glucagon (human recombinant) HYDROmorphone Magnesium Cardiology Dose Replacement - Follow Nurse / BPA Driven Protocol [DISCONTINUED] Morphine AND naloxone nitroglycerin ondansetron oxyCODONE Phosphorus Replacement - Follow Nurse / BPA Driven Protocol Potassium Replacement - Follow Nurse / BPA Driven Protocol sodium chloride sodium chloride Assessment & Plan Assessment & Plan Active Hospital Problems Diagnosis POA Cauda equina syndrome [G83.4] Yes Falls [R29.6] Not Applicable Anemia, chronic disease [D63.8] Yes Thrombocytopenia [D69.6] Yes Stage 3b chronic kidney disease [N18.32] Yes Moderate protein-calorie malnutrition [E44.0] Yes Breast cancer metastasized to bone [C50.919, C79.51] Yes Resolved Hospital Problems No resolved problems to display. Brief Hospital Course to date: Peter Parnell is a 65 y.o. female w stage IV breast cancer since 2019, DM2, anemia, who presented for evaluation of difficulty walking, multiple falls. MRI cervical spine consistent with intramedullary mass within the spinal cord at C6- 7 compatible with metastatic disease and is the likely source of patient's symptoms. Neurosurgery, oncology, radiation oncology consulted. Stage IV breast cancer with mets to the brain, bone, spine, liver T12 lesion w cord compression C6-7 intramedullary metastasis -Radiation oncology following, plan for radiation on 07/16 and again on 07/19 -Neurosurgery followed; nonoperative management recommended -Oncology consulted -Neurochecks every 4 hours -Continue decadron IV every 6 hours per discussion with radiation oncology -PRN pain control, symptom management -PT/OT rec home w 22/04 care, -Here through the weekend at least per discussion w Rad/Onc given risk of spinal swelling w radiation. So plan for treatment on 07/16 and again on 07/19 w continued IV steroids through at least 07/19--> discussed w pt -Discussed w oncology and will hold off on Nerlynx given pt had disease progression on this Hallucinations, potentially medication-induced +/- hospital delirium, now resolved -Discontinued Lyrica &as needed benzodiazepine and changed [place] to as needed Roxicodone ---> and symptoms have currently resolved Pancytopenia in setting of malignancy and neratinib -Monitor Constipation -Increased bowel care and had BM per pt report CKD stage IIIb -Baseline Cr 1-1.6 -Monitor DM2-SSI Memory impairment- Donepezil, Namenda resumed Patients' mobility limitations impair their ability to participate in activities such as toileting,feeding, dressing, grooming, and bathing. Mobility limitations cannot be resolved by a cane or walker. The patient is able to safely use a manual wheelchair, and she will also have a caregiver in thehome as well to help assist with the patient maneuvering. Pharmacy consulted for med rec Expected Discharge Location and Transportation: , 22/04 [facility] Expected Discharge Expected Discharge Date: 07/20/2025; Expected Discharge Time: VTE Prophylaxis: Mechanical VTE prophylaxis orders are present. AM-PAC 6 Clicks Score (PT): 19 (07/16/252044) CODE STATUS: Code Status and Medical Interventions: CPR (Attempt to Resuscitate); Full Support Ordered at: 07/15/25 0203 Code Status (Patient has no pulse and is not breathing): CPR (Attempt to Resuscitate) Medical Interventions (Patient has pulse or is breathing): Full Support Level Of Support Discussed With: Patient Everton Lassiter MD 07/17/25 * Crow Rouse MD - 07/16/2025 4:50 PM EDT RADIATION ONCOLOGY TREATMENT MANAGEMENT NOTE PATIENT: Peter Parnell : 1960 DIAGNOSIS: Malignant neoplasm of upper-outer quadrant of left breast in female, estrogen receptor positive - Stage IIA (T1b, N1, M0) CURRENT DOSE OF RADIATION: 4 Gy out of a planned 20 Gy NUMBER OF REMAINING TREATMENTS: 4 INTERVAL HISTORY: No events overnight. Completed radiation planning this morning. MEDICATIONS: Medication reconciliation for the patient was reviewed and confirmed in the electronicmedical record. KPS 70% Physical Exam Vitals and nursing note reviewed. Constitutional: General: She is not in acute distress. Appearance: She is well-developed. HENT: Head: Normocephalic and atraumatic. Eyes: Conjunctiva/sclera: Conjunctivae normal. Pupils: Pupils are equal, round, and reactive to light. Cardiovascular: Rate and Rhythm: Normal rate and regular rhythm. Heart sounds: No murmur heard. No friction rub. Pulmonary: Effort: Pulmonary effort is normal. Breath sounds: Normal breath sounds. No wheezing. Abdominal: General: Bowel sounds are normal. There is no distension. Palpations: Abdomen is soft. There is no mass. Tenderness: There is no abdominal tenderness. Musculoskeletal: General: Normal range of motion. Cervical back: Normal range of motion and neck supple. Lymphadenopathy: Cervical: No cervical adenopathy. Skin: General: Skin is warm and dry. Neurological: Mental Status: She is alert and oriented to person, place, and time. Comments: Persistent LLE weakness combined with left distal upper extremity weakness Psychiatric: Behavior: Behavior normal. Thought Content: Thought content normal. Judgment: Judgment normal. VITAL SIGNS: Vitals: 07/15/25 2254 07/16/25 0543 07/16/25 1105 07/16/25 1641 BP: 123/54 140/72 130/66 143/79 BP Location: Right arm Right arm Right arm Right arm Patient Position: Lying Lying Lying Lying Pulse: 85 62 Resp: Temp: 97.5 ??F (36.4 ??C) 97.6 ??F (36.4 ??C) 97.6 ??F (36.4 ??C) TempSrc: Oral Oral Oral SpO2: 99% 95% Weight: Height: The following portions of the patient's history were reviewed and updated as appropriate: allergies, current medications, past family history, past medical history, past social history, past surgicalhistory and problem list. IMPRESSION/PLAN: Mrs. Parnell started radiation this afternoon. We are targeting the site of spinal cord involvement at C6-7. She is planned to receive 5 fractions for 20 Gy total. This will be a veryhigh risk area for swelling as a result of treatment, which could worsen her lower extremity weakness and/or contribute to bilateral symptoms including loss of bowel/bladder function as the tumor responds. Will intentionally place on break over the weekend. Continue high dose steroids. Will resume radiation on Saturday. If she is doing better at that point without increase in her symptoms, we will then complete the remaining treatments as scheduled and potentially can transition to an outpatient a ppointment. Crow Rouse MD * Kirsten Iglesias, INSTRUCTOR [employer] - 07/16/2025 4:05 PM EDT HEMATOLOGY/ONCOLOGY PROGRESS NOTE S:Patient is sitting up in chair and family at bedside. Had some confusion this morning that she felt was related to her medications. No issues this afternoon. Past medical history, social history and family history was reviewed and unchanged from prior visit. Review of Systems: Review of Systems Musculoskeletal: Positive for gait problem. Neurological: Positive for dizziness and weakness. Medications: The current medication list was reviewed in the EMR ALLERGIES: Allergies[1] Physical Exam VITAL SIGNS: BP 130/66 (BP Location: Right arm, Patient Position: Lying) Pulse 62 Temp 97.6 ??F (36.4 ??C) (Oral) Resp 16 Ht 170.2 cm (67 ) Wt 72.1 kg (159 lb) SpO2 95% BMI 24.90 kg/m?? Temp: [97.5 ??F (36.4 ??C)-97.6 ??F (36.4 ??C)] 97.6 ??F (36.4 ??C) Physical Exam General: well appearing, in no acute distress Lungs: respirations even and unlabored Extremities: no lower extremity edema Skin: few scattered bruises from recent falls Neurologic: alert, oriented, speech clear Psych: Mood is stable RECENT LABS: Lab Results Component Value Date HGB 8.3 (L) 07/16/2025 HCT 27.2 (L) 07/16/2025 MCV 82.9 07/16/2025 PLT 110 (L) 07/16/2025 WBC 6.18 07/16/2025 NEUTROABS 5.52 07/16/2025 LYMPHSABS 0.38 (L) 07/16/2025 MONOSABS 0.25 07/16/2025 EOSABS 0.00 07/16/2025 BASOSABS 0.00 07/16/2025 Lab Results Component Value Date GLUCOSE 212 (H) 07/16/2025 BUN 30.4 (H) 07/16/2025 CREATININE 1.51 (H) 07/16/2025 NA 140 07/16/2025 K 4.0 07/16/2025 CL 103 07/16/2025 CO2 24.6 07/16/2025 CALCIUM 10.0 07/16/2025 PROTEINTOT 8.0 07/16/2025 ALBUMIN 4.1 07/16/2025 BILITOT 0.4 07/16/2025 ALKPHOS 155 (H) 07/16/2025 AST 57 (H) 07/16/2025 ALT 38 (H) 07/16/2025 Assessment/Plan 1. 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 Neurosurgery has consulted with no surgical intervention planned. Radiation oncologyfollowing and plans to start radiation today to cervical spine, likely 20 Gy in 5 fractions. May then need radiation to bony sites of disease at T12 and L4. She is on IV steroids. Per chadwick Lynn rechallenge her with Enhertu. Kirsten Iglesias APRN [facility] Hematology and Oncology 07/16/2025 [1] No Known Allergies * Karen Ortiz MD - 07/16/2025 1:13 PM EDT Palliative Care Daily Progress Note Referring: Meaghan Geurrier C/C: none S: Medical record reviewed. Events noted. Has had planning session for XRT. Understands results of cervical MRI. Has walker in room from PT. ROS: LLE weakness and numbness both improving No SOA O: Code Status: Code Status and Medical Interventions: CPR (Attempt to Resuscitate); Full Support Ordered at: 07/15/25 0203 Code Status (Patient has no pulse and is not breathing): CPR (Attempt to Resuscitate) Medical Interventions (Patient has pulse or is breathing): Full Support Level Of Support Discussed With: Patient Advanced Directives: Advance Directive Status: Patient does not have advance directive Goals of Care: Ongoing. Palliative Performance Scale Score: 50 BP 130/66 (BP Location: Right arm, Patient Position: Lying) Pulse 62 Temp 97.6 ??F (36.4 ??C) (Oral) Resp 16 Ht 170.2 cm (67 ) Wt 72.1 kg (159 lb) SpO2 95% BMI 24.90 kg/m?? Intake/Output Summary (Last 24 hours) at 07/16/2025 1313 Last data filed at 07/15/2025 1747 Gross per 24 hour Intake 200 ml Output 300 ml Net -100 ml Physical Exam: General Appearance: Alert, cooperative, NAD HEENT: NC/AT, EOMI, anicteric, MMM, face relaxed Neck: supple, trachea midline, no JVD Lungs: CTA bilat, diminished in bases; respirations regular, even and unlabored Heart: RRR, normal S1 and S2, no M/R/G Abdomen: Normal bowel sounds, soft, nontender, nondistended G/U: Deferred MSK/Extremities: No clubbing , cyanosis or edema, No wasting Pulses: Pulses palpable and equal bilaterally Skin: Warm, dry, no mottling Neurologic: A/Ox3, cooperative, moves extremities x 4 with weakness, no tremor, nl one Psych: Calm, appropriate Current Medications: Current Medications[1] Labs: Results from last 7 days Lab Units 07/16/25 0819 WBC 10*3/mm3 6.18 HEMOGLOBIN g/dL 8.3* HEMATOCRIT % 27.2* PLATELETS 10*3/mm3 110* Results from last 7 days Lab Units 07/16/25 0819 SODIUM mmol/L 140 POTASSIUM mmol/L 4.0 CHLORIDE mmol/L 103 CO2 mmol/L 24.6 BUN mg/dL 30.4* CREATININE mg/dL 1.51* CALCIUM mg/dL 10.0 BILIRUBIN mg/dL 0.4 ALK PHOS U/L 155* ALT (SGPT) U/L 38* AST (SGOT) U/L 57* GLUCOSE mg/dL 212* Imaging Results (Last 72 Hours) Procedure Component Value Units Date/Time MRI Cervical Spine With & Without Contrast [[id number]] Collected: 07/15/25 1432 Updated: 07/15/25 1448 Narrative: MRI CERVICAL SPINE W WO CONTRAST Date of Exam: 07/15/2025 12:15 PM EDT Indication: eval cord compression. Breast cancer Comparison: CT cervical spine from 2025 and MRI cervical spine from December 18, 2019 Technique: Routine multiplanar/multisequence sequence images of the cervical spine were obtained before and after the uneventful administration of Vueway. Findings: The alignment is anatomic. The craniocervical junction appears intact. Several sclerotic osseous metastasis are present, better characterized on recent prior CT. The cervical vertebral body heights appear normal. There is a mild chronic superior endplate compression deformity at T1. There is disc desiccation at all levels. The partially visualized posterior fossa contents are unremarkable. There is diffuse T2 hyperintensity within the spinal cord extending from the level of C1 inferiorlythrough the visualized upper thoracic spine. In addition, there is a 1.2 x 0.8 x 2.5 cm (TR X AP X CC) heterogeneously enhancing mass within the spinal canal at the C6-7 level, which appears to be intramedullary. These are new findings from prior MRI from 2021. C2-3: Small central disc protrusion. Mild bilateral facet arthropathy. No spinal canal stenosis. Noneural foraminal stenosis. C3-4: Moderate central disc protrusion. Moderate bilateral facet arthropathy. Moderate right uncovertebral hypertrophy. Mild spinal canal stenosis. Severe right neural foraminal stenosis. C4-5: Mild disc osteophyte complex with superimposed small central disc protrusion. Moderate bilateral facet arthropathy. Moderate right and mild left uncovertebral hypertrophy. Mild spinal canal stenosis. Mild right and moderate left neural foraminal stenosis. C5-6: Moderate central disc protrusion. Moderate bilateral facet arthropathy. Mild bilateral uncovertebral hypertrophy. Moderate spinal canal stenosis. Mild right neural foraminal stenosis. C6-7: Mild disc bulge with superimposed tiny central disc protrusion. Moderate bilateral facet arthropathy. Mild right and moderate left uncovertebral hypertrophy. Mild spinal canal stenosis. Mild bilateral neural foraminal stenosis. C7-T1: No spinal canal or neural foraminal stenosis. Impression: Impression: 1.2.5 cm heterogeneously enhancing mass within spinal canal at the C6-7 level, which appears to be intramedullary. There is diffuse T2 hyperintensity within the spinal cord extending from the level of C1 inferiorly through the visualized upper thoracic spine. These are new findings from prior MRI from 2021. Findings are concerning for metastasis, with primary spinal cord neoplasm felt less likely. 2.Several sclerotic osseous metastasis, better characterized on recent prior CT. 3.Moderate multilevel degenerative changes of cervical spine as described above. Electronically Signed: Gabino Peace MD 07/15/2025 2:45 PM EDT Workstation ID: [id number] MRI Lumbar Spine With & Without Contrast [[id number]] Collected: 07/15/25 0003 Updated: 07/15/2511 Narrative: MRI LUMBAR SPINE W WO CONTRAST Date of Exam: 2025 11:15 PM EDT Indication: eval cauda equina, mets, fxr. Comparison: CT lumbar 2025 and MR lumbar spine 12/17/2021. Technique: Routine multiplanar/multisequence sequence images of the lumbar spine were obtained before and after the uneventful administration of Vueway. Findings: There is redemonstration of an avidly enhancing metastasis occupying the right and posterior aspects of the T12 vertebral body extending into the right 12th rib and transverse process with associatedbone destruction and soft tissue mass. There are multiple additional lumbar spinal metastasis that appear mixed signal intensity without significant enhancement. Metastatic lesions are noted at L3, L4, L5 and S1. There is stable posterior inferior endplate compression fracture at L4, which appears pathologic and is associated with an intravertebral disc herniation. This results in retropulsion ofthe posterior cortex up to 6 mm and results in high-grade spinal canal stenosis with compression ofthe cauda equina. There is an additional metastasis in the right ilium. Compared with the MRI date12/17/2021, the majority of the metastasis appear to have decreased in size and appear less sclerotic, but the large enhancing metastasis in the T12 vertebral body and right 12th rib appears new from 2021. There is no new fracture. There is mild to moderate diffuse disc space narrowing and mild to mo derate diffuse facet arthritis most pronounced in the lower lumbar spine. At L1- L2, there is concentric disc bulge and mild facet and ligamentum flavum hypertrophy without neuroforaminal or spinal canal compromise. At L2-L3, there is concentric disc bulge and mild facet and ligamentum flavum hypertrophy resulting in mild bilateral neuroforaminal narrowing and mild narrowing of the spinal canal. At L3-L4, there are similar degenerative changes with mild to moderate bilateral neuroforaminal narrowing and mild narrowing of the spinal canal. At L4-L5, there is concentric disc bulge and retropulsion as discussed above with moderate facet and ligamentum flavum hypertrophy resulting in severe narrowing of the spinal canal with compression of the cauda equina and moderate bilateral neuroforaminal narrowing. At L5-S1, there is concentric disc bulge andmild facet arthropathy contributing to mild bilateral neuroforaminal narrowing. There is preservation of the posterior paraspinal musculature. There is ahypointense structure in the inferior left kidney likely corresponding to a large kidney stone. Impression: Impression: 1.Multiple osseous metastasis in the lumbar spine and right ilium. The majority of the metastasis appear to have decreased in size and appear less sclerotic, but the large enhancing metastasis in theT12 vertebral body and right 12th rib appears new from 2021. 2.Stable pathologic compression fracture at L4 with retropulsion of the posterior cortex resulting in high-grade spinal canal stenosis with compression of the cauda equina. 3.Moderate lumbar spondylosis with varying degrees of neuroforaminal and spinal canal narrowing as described. Electronically Signed: Homero Perez MD 07/15/2025 12:09 AM EDT Workstation ID: [id number] XR Hips Bilateral With or Without Pelvis 5 View [[id number]] Collected: 07/14/25 2359 Updated: 07/15/25 0004 Narrative: XR FEMUR 2 VW LEFT XR TIBIA FIBULA 2 VW LEFT XR HIPS BILATERAL W OR WO PELVIS 5 VIEW Date of Exam: 2025 11:03 PM EDT Indication: fall, LLE pain/weakness, eval fxr and metastasis. Comparison: None available. Findings: The bony pelvis appears intact without fracture. There is severe diffuse pelvic and trochanteric enthesopathy. Mild symmetric SI joint degeneration. Pubic symphysis and obturator rings appear intact.There is minimal lumbar spondylosis. There are dilated small bowel loops in the central abdomen measuring up to 3.6 cm diameter. There is also mild colonic fecal retention. There is moderate osteoarthritis of both hips. No evidence of hip fracture or dislocation. The mid and distal left femur appears intact without fracture. There is minimal degenerative change at the knee. The bones are diffusely demineralized. The left tibia and fibula appear intact without fracture or dislocation. Joint spaces at the knee and ankle appear well-maintained. Impression: Impression: 1.No acute osseous abnormality. 2.Moderate osteoarthritis of both hips. 3.Severe diffuse pelvic and trochanteric enthesopathy. 4.Dilated small bowel loops in the central abdomen. Correlate for ileus or obstruction. Electronically Signed: Homero Perez MD 07/15/2025 12:01 AM EDT Workstation ID: [id number] XR Femur 2 View Left [[id number]] Collected: 07/14/252358 Updated: 07/15/253 Narrative: XR FEMUR 2 VW LEFT XR TIBIA FIBULA 2 VW LEFT XR HIPS BILATERAL W OR WO PELVIS 5 VIEW Date of Exam: 2025 11:03 PM EDT Indication: fall, LLE pain/weakness, eval fxr and metastasis. Comparison: None available. Findings: The bony pelvis appears intact without fracture. There is severe diffuse pelvic and trochanteric enthesopathy. Mild symmetric SI joint degeneration. Pubic symphysis and obturator rings appear intact.There is minimal lumbar spondylosis. There are dilated small bowel loops in the central abdomen measuring up to 3.6 cm diameter. There is also mild colonic fecal retention. There is moderate osteoarthritis of both hips. No evidence of hip fracture or dislocation. The mid and distal left femur appears intact without fracture. There is minimal degenerative change at the knee. The bones are diffusely demineralized. The left tibia and fibula appear intact without fracture or dislocation. Joint spaces at the knee and ankle appear well-maintained. Impression: Impression: 1.No acute osseous abnormality. 2.Moderate osteoarthritis of both hips. 3.Severe diffuse pelvic and trochanteric enthesopathy. 4.Dilated small bowel loops in the central abdomen. Correlate for ileus or obstruction. Electronically Signed: Homero Perez MD 07/15/2025 12:01 AM EDT Workstation ID: [id number] XR Tibia Fibula 2 View Left [[id number]] Collected: 07/14/252358 Updated: 07/15/25 0004 Narrative: XR FEMUR 2 VW LEFT XR TIBIA FIBULA 2 VW LEFT XR HIPS BILATERAL W OR WO PELVIS 5 VIEW Date of Exam: 2025 11:03 PM EDT Indication: fall, LLE pain/weakness, eval fxr and metastasis. Comparison: None available. Findings: The bony pelvis appears intact without fracture. There is severe diffuse pelvic and trochanteric enthesopathy. Mild symmetric SI joint degeneration. Pubic symphysis and obturator rings appear intact.There is minimal lumbar spondylosis. There are dilated small bowel loops in the central abdomen measuring up to 3.6 cm diameter. There is also mild colonic fecal retention. There is moderate osteoarthritis of both hips. No evidence of hip fracture or dislocation. The mid and distal left femur appears intact without fracture. There is minimal degenerative change at the knee. The bones are diffusely demineralized. The left tibia and fibula appear intact without fracture or dislocation. Joint spaces at the knee and ankle appear well-maintained. Impression: Impression: 1.No acute osseous abnormality. 2.Moderate osteoarthritis of both hips. 3.Severe diffuse pelvic and trochanteric enthesopathy. 4.Dilated small bowel loops in the central abdomen. Correlate for ileus or obstruction. Electronically Signed: Homero Perez MD 07/15/2025 12:01 AM EDT Workstation ID: [id number] XR Chest 1 View [[id number]] Collected: 07/14/252357 Updated: 07/15/25 0002 Narrative: XR CHEST 1 VW Date of Exam: 2025 11:02 PM EDT Indication: fall. Comparison: Chest CT 06/10/2025. Findings: Stable right chest port. There is no pneumothorax, pleural effusion or focal airspace consolidation. Heart size and pulmonary vasculature appear within normal limits. Stable destructive lytic lesion noted at the right second rib. No acute osseous abnormality. Impression: Impression: 1.No acute cardiopulmonary abnormality. 2.Stable destructive lytic lesion at the right second rib. Electronically Signed: Homero Perez MD 2025 11:58 PM EDT Workstation ID: [id number] MRI Brain With & Without Contrast [[id number]] Collected: 07/14/252334 Updated: 07/14/252347 Narrative: MRI BRAIN W WO CONTRAST Date of Exam: 2025 11:14 PM EDT Indication: fall, LLE pain/weakness, eval fxr and metastasis. Comparison: Head CT 2025. Technique: Routine multiplanar/multisequence sequence images of the brain were obtained before and after the uneventful administration of Vueway. Findings: There is no diffusion restriction to suggest an acute infarct. Midline structures appear intact. Calvarial and superficial soft tissue signal is within normal limits. The temporomandibular joints andparotid glands appear symmetric. Dentition appears unremarkable. There are multiple enlarging intracranial metastasis. This includes a nodular metastasis that appears dural based in the anterior right frontal region on postcontrast 3D T1 axial image 107 measuring 10 mm with an adjacent nodular component laterally measuring 5 mm. Enlarging right frontal periventricular metastasis measuring 6 mm on image 113 of the same series. There is progressive nodular enhancement within the superior left of midline cerebellum on axial image 52 measuring 7 mm diameter. Enlarging right occipital metastasis measuring 13 mm on image 64. Enlarging left cerebellar metastasis measuring up to 18 mm diameter on image 43. Progressive enhancement in the lateral right cerebellum m easuring 9 mm on image 46. Paramedian right cerebellar metastasis measuring 10 mm on image 32 is also progressive. No definite new metastatic lesions. There is increased edema associated with the left cerebellar lesion resulting in mild mass effect without midline shift or ventricular effacement. There is stable edema signal within the brain matter at the right occipital metastasis. There is otherwise stable mild chronic small vessel ischemic change. There is no herniation. No evidence of acuteor chronic intracranial hemorrhage. No diffusion restriction to suggest acute infarct. Orbits are symmetric. There is left frontal sinus mucosal disease and there is a left mastoid effusion. The major arterial flow voids appear intact. There is abnormal high T2 signal within the central cervical spinal cord at the level of the dens, which is seen on the last few images. This does raise concern for a more distal cord metastasis or compression. Recommend cervical MRI with IV contrast. Impression: Impression: 1.Multiple enlarging intracranial metastasis. There is increased edema associated with the left cerebellar metastasis resulting in mild mass effect without midline shift or ventricular effacement. 2.Abnormal high T2 signal within the central cervical spinal cord at the level of the dens. This does raise concern for a more distal cord metastasis or compression. Recommend cervical MRI with IV contrast. 3.Stable mild chronic small vessel ischemic change. 4.Left frontal sinus mucosal disease and left mastoid effusion. Electronically Signed: Homero Perez MD 2025 11:45 PM EDT Workstation ID: [id number] CT Head Without Contrast [[id number]] Collected: 07/14/252153 Updated: 07/14/252212 Narrative: CT HEAD WO CONTRAST, CT LUMBAR SPINE WO CONTRAST, CT THORACIC SPINE WO CONTRAST, CT CERVICAL SPINE WO CONTRAST Date of Exam: 2025 9:24 PM EDT Indication: fall, LLE pain/weakness, eval fxr and metastasis. Comparison: Brain MRI 06/10/2025, CT chest abdomen pelvis 06/10/2025, CT soft tissue neck 11/27/2024 Technique: Axial CT images were obtained of the head and total spine without contrast administration. Automated exposure control and iterative construction methods were used. Findings: Head CT: Vague hypodensity in the right occipital lobe and left cerebellar hemisphere unchanged from prior MRI. These are in keeping with known intracranial metastases. Negative for large territory infarct, acute intracranial hemorrhage, midline shift or hydrocephalus. Mild periventricular hypodensity favoring sequelae of chronic microvascular ischemicchange. No large extra-axial fluid collection. Orbits are symmetric. No obstructive sinus disease. No large mastoid effusion. No aggressive bone lesion or displaced fracture. Cervical spine: Osseous metastases without significant change from prior CT neck comparison. No visualized displaced fracture, vertebral body height loss or malalignment. Minimal degenerative disc disease. Overall mild facet arthropathy. Negative for high-grade central spinal canal stenosis. Severeright neuroforaminal stenosis C3-C4 similar to prior, other show low-grade stenosis. Similar heterogeneous enlargement of the right thyroid gland outpatient thyroid ultrasound could be considered. Partially imaged right IJ central catheter. No suspicious adenopathy in the neck. Thoracic spine: Heterogeneous mixed lucent and sclerotic metastases without significant change fromprior exam. Mild chronic superior endplate height loss of T1 and T10. There is multilevel degenerative change without high-grade central spinal canal stenosis. Severe neuroforaminal stenosis on the left at T10-T11 and T11-T12 similar to prior exam. Heterogeneous more expansile rib lesions noted most significant involving the second, right posterior ninth and right posterior 12th ribs. Few chronicappearing nondisplaced rib fractures stable from prior pulse representing prior pathologic fractures. Right IJ central catheter terminates near the cavoatrial junction. No suspicious mediastinal or hilar adenopathy. Few pulmonary nodules measuring up to 6 mm left upper lobe image 54 series 2 unchanged from 06/10/2025 CT comparison. Splenomegaly measuring up to 13 cm in maximum AP dimension withoutsignificant change from prior exam. Lumbar spine: Mixed lucent and sclerotic metastases without significant change from prior exam. Suspect old pathologic fracture with bony retropulsion at L4 by up to 4 mm image 33 series 5 unchanged from 06/10/2025 CT comparison. This may result in high-grade central spinal canal stenosis similar toprior exam. No visualized displaced acute fracture, vertebral body height loss or traumatic malalignment of the lumbar spine. Multilevel degenerative disc disease and facet arthropathy with probably mild to moderate central spinal canal stenosis L2-L3 and L3-L4. Varying degrees of neuroforaminal stenosis up to moderate severity bilaterally L3-L4, severe right moderate to severe left L4-L5 and moderate bilateral L5-S1 probably similar to prior comparison. No visualized retroperitoneal adenopathy. Few nonobstructing renal calculi largest in the left inferior pole measuring up to 1.3 cm unchanged from prior exam. Impression: Impression: 1. Grossly stable mixed lucent and sclerotic osseous metastases detailed above compared to prior CTimaging comparisons. No new suspicious pathologic fracture. 2. Similar-appearing probable old pathologic fracture at L4 with bony retropulsion resulting in possible high-grade central spinal canal stenosis. This could be assessed by MRI as clinically indicated. 3. Similar hypodense lesions in the right occipital lobe and left cerebellum, in keeping with intracranial metastases noted on prior contrasted MRI comparisons. 4. Stable small pulmonary nodules. Stable splenomegaly. No enlarging adenopathy to suggest disease progression. 5. Other chronic/ancillary findings as above. Electronically Signed: Galen Hawley MD 2025 10:10 PM EDT Workstation ID: [id number] CT Cervical Spine Without Contrast [[id number]] Collected: 07/14/252153 Updated: 07/14/252212 Narrative: CT HEAD WO CONTRAST, CT LUMBAR SPINE WO CONTRAST, CT THORACIC SPINE WO CONTRAST, CT CERVICAL SPINE WO CONTRAST Date of Exam: 2025 9:24 PM EDT Indication: fall, LLE pain/weakness, eval fxr and metastasis. Comparison: Brain MRI 06/10/2025, CT chest abdomen pelvis 06/10/2025, CT soft tissue neck 11/27/2024 Technique: Axial CT images were obtained of the head and total spine without contrast administration. Automated exposure control and iterative construction methods were used. Findings: Head CT: Vague hypodensity in the right occipital lobe and left cerebellar hemisphere unchanged from prior MRI. These are in keeping with known intracranial metastases. Negative for large territory infarct, acute intracranial hemorrhage, midline shift or hydrocephalus. Mild periventricular hypodensity favoring sequelae of chronic microvascular ischemicchange. No large extra-axial fluid collection. Orbits are symmetric. No obstructive sinus disease. No large mastoid effusion. No aggressive bone lesion or displaced fracture. Cervical spine: Osseous metastases without significant change from prior CT neck comparison. No visualized displaced fracture, vertebral body height loss or malalignment. Minimal degenerative disc disease. Overall mild facet arthropathy. Negative for high-grade central spinal canal stenosis. Severeright neuroforaminal stenosis C3-C4 similar to prior, other show low-grade stenosis. Similar heterogeneous enlargement of the right thyroid gland outpatient thyroid ultrasound could be considered. Partially imaged right IJ central catheter. No suspicious adenopathy in the neck. Thoracic spine: Heterogeneous mixed lucent and sclerotic metastases without significant change fromprior exam. Mild chronic superior endplate height loss of T1 and T10. There is multilevel degenerative change without high-grade central spinal canal stenosis. Severe neuroforaminal stenosis on the left at T10-T11 and T11-T12 similar to prior exam. Heterogeneous more expansile rib lesions noted most significant involving the second, right posterior ninth and right posterior 12th ribs. Few chronicappearing nondisplaced rib fractures stable from prior pulse representing prior pathologic fractures. Right IJ central catheter terminates near the cavoatrial junction. No suspicious mediastinal or hilar adenopathy. Few pulmonary nodules measuring up to 6 mm left upper lobe image 54 series 2 unchanged from 06/10/2025 CT comparison. Splenomegaly measuring up to 13 cm in maximum AP dimension withoutsignificant change from prior exam. Lumbar spine: Mixed lucent and sclerotic metastases without significant change from prior exam. Suspect old pathologic fracture with bony retropulsion at L4 by up to 4 mm image 33 series 5 unchanged from 06/10/2025 CT comparison. This may result in high-grade central spinal canal stenosis similar toprior exam. No visualized displaced acute fracture, vertebral body height loss or traumatic malalignment of the lumbar spine. Multilevel degenerative disc disease and facet arthropathy with probably mild to moderate central spinal canal stenosis L2-L3 and L3-L4. Varying degrees of neuroforaminal stenosis up to moderate severity bilaterally L3-L4, severe right moderate to severe left L4-L5 and moderate bilateral L5-S1 probably similar to prior comparison. No visualized retroperitoneal adenopathy. Few nonobstructing renal calculi largest in the left inferior pole measuring up to 1.3 cm unchanged from prior exam. Impression: Impression: 1. Grossly stable mixed lucent and sclerotic osseous metastases detailed above compared to prior CTimaging comparisons. No new suspicious pathologic fracture. 2. Similar-appearing probable old pathologic fracture at L4 with bony retropulsion resulting in possible high-grade central spinal canal stenosis. This could be assessed by MRI as clinically indicated. 3. Similar hypodense lesions in the right occipital lobe and left cerebellum, in keeping with intracranial metastases noted on prior contrasted MRI comparisons. 4. Stable small pulmonary nodules. Stable splenomegaly. No enlarging adenopathy to suggest disease progression. 5. Other chronic/ancillary findings as above. Electronically Signed: Galen Hawley MD 2025 10:10 PM EDT Workstation ID: [id number] CT Thoracic Spine Without Contrast [[id number]] Collected: 07/14/252153 Updated: 07/14/252212 Narrative: CT HEAD WO CONTRAST, CT LUMBAR SPINE WO CONTRAST, CT THORACIC SPINE WO CONTRAST, CT CERVICAL SPINE WO CONTRAST Date of Exam: 2025 9:24 PM EDT Indication: fall, LLE pain/weakness, eval fxr and metastasis. Comparison: Brain MRI 06/10/2025, CT chest abdomen pelvis 06/10/2025, CT soft tissue neck 11/27/2024 Technique: Axial CT images were obtained of the head and total spine without contrast administration. Automated exposure control and iterative construction methods were used. Findings: Head CT: Vague hypodensity in the right occipital lobe and left cerebellar hemisphere unchanged from prior MRI. These are in keeping with known intracranial metastases. Negative for large territory infarct, acute intracranial hemorrhage, midline shift or hydrocephalus. Mild periventricular hypodensity favoring sequelae of chronic microvascular ischemicchange. No large extra-axial fluid collection. Orbits are symmetric. No obstructive sinus disease. No large mastoid effusion. No aggressive bone lesion or displaced fracture. Cervical spine: Osseous metastases without significant change from prior CT neck comparison. No visualized displaced fracture, vertebral body height loss or malalignment. Minimal degenerative disc disease. Overall mild facet arthropathy. Negative for high-grade central spinal canal stenosis. Severeright neuroforaminal stenosis C3-C4 similar to prior, other show low-grade stenosis. Similar heterogeneous enlargement of the right thyroid gland outpatient thyroid ultrasound could be considered. Partially imaged right IJ central catheter. No suspicious adenopathy in the neck. Thoracic spine: Heterogeneous mixed lucent and sclerotic metastases without significant change fromprior exam. Mild chronic superior endplate height loss of T1 and T10. There is multilevel degenerative change without high-grade central spinal canal stenosis. Severe neuroforaminal stenosis on the left at T10-T11 and T11-T12 similar to prior exam. Heterogeneous more expansile rib lesions noted most significant involving the second, right posterior ninth and right posterior 12th ribs. Few chronicappearing nondisplaced rib fractures stable from prior pulse representing prior pathologic fractures. Right IJ central catheter terminates near the cavoatrial junction. No suspicious mediastinal or hilar adenopathy. Few pulmonary nodules measuring up to 6 mm left upper lobe image 54 series 2 unchanged from 06/10/2025 CT comparison. Splenomegaly measuring up to 13 cm in maximum AP dimension withoutsignificant change from prior exam. Lumbar spine: Mixed lucent and sclerotic metastases without significant change from prior exam. Suspect old pathologic fracture with bony retropulsion at L4 by up to 4 mm image 33 series 5 unchanged from 06/10/2025 CT comparison. This may result in high-grade central spinal canal stenosis similar toprior exam. No visualized displaced acute fracture, vertebral body height loss or traumatic malalignment of the lumbar spine. Multilevel degenerative disc disease and facet arthropathy with probably mild to moderate central spinal canal stenosis L2-L3 and L3-L4. Varying degrees of neuroforaminal stenosis up to moderate severity bilaterally L3-L4, severe right moderate to severe left L4-L5 and moderate bilateral L5-S1 probably similar to prior comparison. No visualized retroperitoneal adenopathy. Few nonobstructing renal calculi largest in the left inferior pole measuring up to 1.3 cm unchanged from prior exam. Impression: Impression: 1. Grossly stable mixed lucent and sclerotic osseous metastases detailed above compared to prior CTimaging comparisons. No new suspicious pathologic fracture. 2. Similar-appearing probable old pathologic fracture at L4 with bony retropulsion resulting in possible high-grade central spinal canal stenosis. This could be assessed by MRI as clinically indicated. 3. Similar hypodense lesions in the right occipital lobe and left cerebellum, in keeping with intracranial metastases noted on prior contrasted MRI comparisons. 4. Stable small pulmonary nodules. Stable splenomegaly. No enlarging adenopathy to suggest disease progression. 5. Other chronic/ancillary findings as above. Electronically Signed: Galen Hawley MD 2025 10:10 PM EDT Workstation ID: [id number] CT Lumbar Spine Without Contrast [[id number]] Collected: 07/14/252153 Updated: 07/14/252212 Narrative: CT HEAD WO CONTRAST, CT LUMBAR SPINE WO CONTRAST, CT THORACIC SPINE WO CONTRAST, CT CERVICAL SPINE WO CONTRAST Date of Exam: 2025 9:24 PM EDT Indication: fall, LLE pain/weakness, eval fxr and metastasis. Comparison: Brain MRI 06/10/2025, CT chest abdomen pelvis 06/10/2025, CT soft tissue neck 11/27/2024 Technique: Axial CT images were obtained of the head and total spine without contrast administration. Automated exposure control and iterative construction methods were used. Findings: Head CT: Vague hypodensity in the right occipital lobe and left cerebellar hemisphere unchanged from prior MRI. These are in keeping with known intracranial metastases. Negative for large territory infarct, acute intracranial hemorrhage, midline shift or hydrocephalus. Mild periventricular hypodensity favoring sequelae of chronic microvascular ischemicchange. No large extra-axial fluid collection. Orbits are symmetric. No obstructive sinus disease. No large mastoid effusion. No aggressive bone lesion or displaced fracture. Cervical spine: Osseous metastases without significant change from prior CT neck comparison. No visualized displaced fracture, vertebral body height loss or malalignment. Minimal degenerative disc disease. Overall mild facet arthropathy. Negative for high-grade central spinal canal stenosis. Severeright neuroforaminal stenosis C3-C4 similar to prior, other show low-grade stenosis. Similar heterogeneous enlargement of the right thyroid gland outpatient thyroid ultrasound could be considered. Partially imaged right IJ central catheter. No suspicious adenopathy in the neck. Thoracic spine: Heterogeneous mixed lucent and sclerotic metastases without significant change fromprior exam. Mild chronic superior endplate height loss of T1 and T10. There is multilevel degenerative change without high-grade central spinal canal stenosis. Severe neuroforaminal stenosis on the left at T10-T11 and T11-T12 similar to prior exam. Heterogeneous more expansile rib lesions noted most significant involving the second, right posterior ninth and right posterior 12th ribs. Few chronicappearing nondisplaced rib fractures stable from prior pulse representing prior pathologic fractures. Right IJ central catheter terminates near the cavoatrial junction. No suspicious mediastinal or hilar adenopathy. Few pulmonary nodules measuring up to 6 mm left upper lobe image 54 series 2 unchanged from 06/10/2025 CT comparison. Splenomegaly measuring up to 13 cm in maximum AP dimension withoutsignificant change from prior exam. Lumbar spine: Mixed lucent and sclerotic metastases without significant change from prior exam. Suspect old pathologic fracture with bony retropulsion at L4 by up to 4 mm image 33 series 5 unchanged from 06/10/2025 CT comparison. This may result in high-grade central spinal canal stenosis similar toprior exam. No visualized displaced acute fracture, vertebral body height loss or traumatic malalignment of the lumbar spine. Multilevel degenerative disc disease and facet arthropathy with probably mild to moderate central spinal canal stenosis L2-L3 and L3-L4. Varying degrees of neuroforaminal stenosis up to moderate severity bilaterally L3-L4, severe right moderate to severe left L4-L5 and moderate bilateral L5-S1 probably similar to prior comparison. No visualized retroperitoneal adenopathy. Few nonobstructing renal calculi largest in the left inferior pole measuring up to 1.3 cm unchanged from prior exam. Impression: Impression: 1. Grossly stable mixed lucent and sclerotic osseous metastases detailed above compared to prior CTimaging comparisons. No new suspicious pathologic fracture. 2. Similar-appearing probable old pathologic fracture at L4 with bony retropulsion resulting in possible high-grade central spinal canal stenosis. This could be assessed by MRI as clinically indicated. 3. Similar hypodense lesions in the right occipital lobe and left cerebellum, in keeping with intracranial metastases noted on prior contrasted MRI comparisons. 4. Stable small pulmonary nodules. Stable splenomegaly. No enlarging adenopathy to suggest disease progression. 5. Other chronic/ancillary findings as above. Electronically Signed: Galen Hawley MD 2025 10:10 PM EDT Workstation ID: [id number] Lab 07/15/25 0918 HEMOGLOBIN A1C 5.83* Diagnostics: Reviewed A: Cauda equina syndrome Breast cancer metastasized to [place] Anemia, chronic disease Thrombocytopenia Stage 3b chronic kidney disease Moderate protein-calorie malnutrition Impression: Metastatic breast CA Intraspinal mass Cspine per MRI Anemia CKD Symptoms: Weakness Urinary retention- ?neuro bladder Debility P: Continue to monitor bladder emptying. Please call for any needs over weekend. Palliative Care Team will continue to follow patient. Karen Ortiz MD, 07/16/2025, 13:13 EDT [1] Current Facility-Administered Medications: aluminum-magnesium hydroxide-simethicone (MAALOX MAX) 400-400-40 MG/5ML suspension 15 mL, 15 mL, Oral, Q6H PRN, Meaghan Guerrier MD sennosides-docusate (PERICOLACE) 8.6-50 MG per tablet 2 tablet, 2 tablet, Oral, BID PRN AND polyethylene glycol (MIRALAX) packet 17 g, 17 g, Oral, Daily PRN AND bisacodyl (DULCOLAX) EC tablet5 mg, 5 mg, Oral, Daily PRN AND bisacodyl (DULCOLAX) suppository 10 mg, 10 mg, Rectal, Daily PRN, Meaghan Guerrier MD Calcium Replacement - Follow Nurse / BPA Driven Protocol, , Not Applicable, PRN, Meaghan Guerrier MD dexAMETHasone (DECADRON) injection 6 mg, 6 mg, Intravenous, Q6H, Meaghan Guerrier MD, 6 mg at 07/16/25 0702 dextrose (D50W) (25 g/50 mL) IV injection 25 g, 25 g, Intravenous, Q15 Min PRN, Meaghan Guerrier MD dextrose (GLUTOSE) oral gel 15 g, 15 g, Oral, Q15 Min PRN, Meaghan Guerrier MD famotidine (PEPCID) tablet 40 mg, 40 mg, Oral, Daily, Meaghan Guerrier MD, 40 mg at 07/16/25 0833 glucagon (GLUCAGEN) injection 1 mg, 1 mg, Intramuscular, Q15 Min PRN, Meaghan Guerrier MD HYDROmorphone (DILAUDID) injection 0.25 mg, 0.25 mg, Intravenous, Q2H PRN, Everton Lassiter MD Insulin Lispro (humaLOG) injection 2-7 Units, 2-7 Units, Subcutaneous, 4x Daily AC & at Bedtime, Everton Lassiter MD, 2 Units at 07/16/25 0833 Magnesium Cardiology Dose Replacement - Follow Nurse / BPA Driven Protocol, , Not Applicable, PRN, Meaghan Guerrier MD [DISCONTINUED] morphine injection 2 mg, 2 mg, Intravenous, Q4H PRN AND naloxone (NARCAN) injection 0.4 mg, 0.4 mg, Intravenous, Q5 Min PRN, Meaghan Guerrier MD nitroglycerin (NITROSTAT) SL tablet 0.4 mg, 0.4 mg, Sublingual, Q5 Min PRN, Meaghan Guerrier MD ondansetron (ZOFRAN) injection 4 mg, 4 mg, Intravenous, Q6H PRN, Meaghan Guerrier MD oxyCODONE (ROXICODONE) immediate release tablet 7.5 mg, 7.5 mg, Oral, Q6H PRN, Everton Lassiter MD Phosphorus Replacement - Follow Nurse / BPA Driven Protocol, , Not Applicable, Jason SIMPSON Jennifer, MD Potassium Replacement - Follow Nurse / BPA Driven Protocol, , Not Applicable, Jason SIMPSON Jennifer, MD sodium chloride 0.9 % flush 10 mL, 10 mL, Intravenous, Q12H, Meaghan Guerrier MD, 10 mL at 07/16/25 0835 sodium chloride 0.9 % flush 10 mL, 10 mL, Intravenous, PRN, Meaghan Guerrier MD sodium chloride 0.9 % infusion 40 mL, 40 mL, Intravenous, Jason SIMPSON Jennifer, MD * Everton Lassiter MD - 07/16/2025 8:25 AM EDT Images from the original note were not included. [facility] PROGRESS NOTE Patient Name: Peter Parnell : 1960 Date of Admission: 2025 Primary Care Physician: Loretat Landon MD Subjective Subjective CC: Neck pain, difficulty walking HPI: Having hallucinations and vivid dreams. Dreamed that she was trying out to be in the . No nausea or vomiting. No bowel movement. Reports anxiety. States she feels like the medications are making her hallucinate. Objective Objective Vital Signs: Temp: [97.5 ??F (36.4 ??C)-97.6 ??F (36.4 ??C)] 97.6 ??F (36.4 ??C) Heart Rate: [62-94] 62 Resp: [16-18] 16 BP: (123-143)/(54-79) 143/79 Physical Exam: Constitutional: No acute distress, awake, alert HENT: NCAT, mucous membranes moist Respiratory: Clear to auscultation bilaterally, respiratory effort normal Cardiovascular: RRR Gastrointestinal: Positive bowel sounds, soft, nontender, nondistended Musculoskeletal: No bilateral ankle edema Psychiatric: Appropriate affect, cooperative Neurologic: Alert, oriented, conversant, speech clear Skin: No rashes Results Reviewed: LAB RESULTS: Lab 07/16/2581807/15/2591707/14/252205 WBC 6.18 2.72* 4.79 HEMOGLOBIN 8.3* 8.5* 8.1* HEMATOCRIT 27.2* 27.9* 26.7* PLATELETS 110* 69* 90* NEUTROS ABS 5.52 2.40 3.90 IMMATURE GRANS (ABS) 0.03 0.01 0.02 LYMPHS ABS 0.38* 0.26* 0.44* MONOS ABS 0.25 0.05* 0.40 EOS ABS 0.00 0.00 0.02 MCV 82.9 84.5 84.2 Lab 07/16/2581807/15/25 0918 07/14/252205 SODIUM 140 139 142 POTASSIUM 4.0 4.0 4.3 CHLORIDE 103 104 103 CO2 24.6 23.3 25.5 ANION GAP 12.4 11.7 13.5 BUN 30.4* 25.7* 27.0* CREATININE 1.51* 1.47* 1.66* EGFR 38.4* 39.7* 34.3* GLUCOSE 212* 182* 133* CALCIUM 10.0 9.6 9.8 MAGNESIUM 2.9* 1.5* -- PHOSPHORUS 3.6 3.6 -- HEMOGLOBIN A1C -- 5.83* -- Lab 07/16/25 0819 07/15/25 0918 07/14/25 2206 TOTAL PROTEIN 8.0 7.4 7.3 ALBUMIN 4.1 3.9 4.0 GLOBULIN 3.9 3.5 3.3 ALT (SGPT) 38* 27 28 AST (SGOT) 57* 43* 40* BILIRUBIN 0.4 0.4 0.4 ALK PHOS 155* 144* 151* Lab 07/16/25 0819 07/15/25917 ABO TYPING O O RH TYPING Positive Positive ANTIBODY SCREEN -- Negative Brief Urine Lab Results (Last result in the past 365 days) Color Clarity Blood Leuk Est Nitrite Protein CREAT Urine HCG 07/14/25 2243 Yellow Clear Small (1+) Trace Negative 30 mg/dL (1+) Microbiology Results Abnormal None MRI Cervical Spine With & Without Contrast Result Date: 07/15/2025 MRI CERVICAL SPINE W WO CONTRAST Date of Exam: 07/15/2025 12:15 PM EDT Indication: eval cord compression. Breast cancer Comparison: CT cervical spine from 2025 and MRI cervical spine fromDecember 18, 2019 Technique: Routine multiplanar/multisequence sequence images of the cervical spine were obtained before and after the uneventful administration of Vueway. Findings: The alignment is anatomic. The craniocervical junction appears intact. Several sclerotic osseous metastasis are present, better characterized on recent prior CT. The cervical vertebral body heights appear normal. There is a mild chronic superior endplate compression deformity at T1. There is disc desiccation at all levels. The partially visualized posterior fossa contents are unremarkable. There is diffuse T2 hyperintensity within the spinal cord extending from the level of C1 inferiorly through the visualized upper thoracic spine. In addition, there is a 1.2 x 0.8 x 2.5 cm (TR X AP X CC) heterogeneously enhancing mass within the spinal canal at the C6-7 level, which appears to be intramedullary. These are newfindings from prior MRI from 2021. C2-3: Small central disc protrusion. Mild bilateral facet arthropathy. No spinal canal stenosis. No neural foraminal stenosis. C3-4: Moderate central disc protrusion. Moderate bilateral facet arthropathy. Moderate right uncovertebral hypertrophy. Mild spinal canalstenosis. Severe right neural foraminal stenosis. C4-5: Mild disc osteophyte complex with superimposed small central disc protrusion. Moderate bilateral facet arthropathy. Moderate right and mild left uncovertebral hypertrophy. Mild spinal canal stenosis. Mild right and moderate left neural foraminal stenosis. C5-6: Moderate central disc protrusion. Moderate bilateral facet arthropathy. Mild bilateral uncovertebral hypertrophy. Moderate spinal canal stenosis. Mild right neural foraminal stenosis. C6-7: Mild disc bulge with superimposed tiny central disc protrusion. Moderate bilateral facet arthropathy. Mild right and moderate left uncovertebral hypertrophy. Mild spinal canal stenosis. Mild bilateral neural foraminal stenosis. C7-T1: No spinal canal or neural foraminal stenosis. Impression: Impression: 1.2.5 cm heterogeneously enhancing mass within spinal canal at the C6-7 level, which appears to be intramedullary. There is diffuse T2 hyperintensity within the spinal cord extending from the level of C1 inferiorly through the visualized upper thoracic spine. These are new findings from prior MRI from 2021. Findings are concerning for metastasis, with primary spinal cord neoplasm felt less likely. 2.Several sclerotic osseous metastasis, better characterized on recent prior CT. 3.Moderate multilevel degenerative changes of cervical spine as described above. Electronically Signed: Gabino Peace MD 07/15/2025 2:45 PM EDT Workstation ID: [id number] MRI Lumbar Spine With & Without Contrast Result Date: 07/15/2025 MRI LUMBAR SPINE W WO CONTRAST Date of Exam: 2025 11:15 PM EDT Indication: eval cauda equina,mets, fxr. Comparison: CT lumbar 2025 and MR lumbar spine 12/17/2021. Technique: Routine multiplanar/multisequence sequence images of the lumbar spine were obtained before and after the uneventful administration of Vueway. Findings: There is redemonstration of an avidly enhancing metastasis occ upying the right and posterior aspects of the T12 vertebral body extending into the right 12th rib and transverse process with associated bone destruction and soft tissue mass. There are multiple additional lumbar spinal metastasis that appear mixed signal intensity without significant enhancement.Metastatic lesions are noted at L3, L4, L5 and S1. There is stable posterior inferior endplate compression fracture at L4, which appears pathologic and is associated with an intravertebral disc herniation. This results in retropulsion of the posterior cortex up to 6 mm and results in high-grade spinal canal stenosis with compression of the cauda equina. There is an additional metastasis in the right ilium. Compared with the MRI dated 12/17/2021, the majority of the metastasis appear to have decreased in size and appear less sclerotic, but the large enhancing metastasis in the T12 vertebral body and right 12th rib appears new from 2021. There is no new fracture. There is mild to moderate diffuse disc space narrowing and mild to moderate diffuse facet arthritis most pronounced in the lower lumbar spine. At L1-L2, there is concentric disc bulge and mild facet and ligamentum flavum hypertrophy without neuroforaminal or spinal canal compromise. At L2-L3, there is concentric disc bulge and mild facet and ligamentum flavum hypertrophy resulting in mild bilateral neuroforaminal narrowing andmild narrowing of the spinal canal. At L3-L4, there are similar degenerative changes with mild to moderate bilateral neuroforaminal narrowing and mild narrowing of the spinal canal. At L4-L5, there is concentric disc bulge and retropulsion as discussed above with moderate facet and ligamentum flavum hypertrophy resulting in severe narrowing of the spinal canal with compression of the cauda equinaand moderate bilateral neuroforaminal narrowing. At L5-S1, there is concentric disc bulge and mild facet arthropathy contributing to mild bilateral neuroforaminal narrowing. There is preservation of the posterior paraspinal musculature. There is a hypointense structure in the inferior left kidney likely corresponding to a large kidney stone. Impression: Impression: 1.Multiple osseous metastasis in the lumbar spine and right ilium. The majority of the metastasis appear to have decreased in size and appear less sclerotic, but the large enhancing metastasis in the T12 vertebral body and right 12th rib appears new from 2021. 2.Stable pathologic compression fracture at L4 with retropulsion of the posterior cortex resulting in high-grade spinal canal stenosis with compression of the cauda equina. 3.Moderate lumbar spondylosis with varying degrees of neuroforaminal and spinal canal narrowing as described. Electronically Signed: Homero Perez MD 07/15/2025 12:09 AM EDT Workstation ID: [id number] XR Hips Bilateral With or Without Pelvis 5 View Result Date: 07/15/2025 XR FEMUR 2 VW LEFT XR TIBIA FIBULA 2 VW LEFT XR HIPS BILATERAL W OR WO PELVIS 5 VIEW Date of Exam: 2025 11:03 PM EDT Indication: fall, LLE pain/weakness, eval fxr and metastasis. Comparison: None available. Findings: The bony pelvis appears intact without fracture. There is severe diffuse pelvic and trochanteric enthesopathy. Mild symmetric SI joint degeneration. Pubic symphysis and obturato r rings appear intact. There is minimal lumbar spondylosis. There are dilated small bowel loops in the central abdomen measuring up to 3.6 cm diameter. There is also mild colonic fecal retention. There is moderate osteoarthritis of both hips. No evidence of hip fracture or dislocation. The mid and distal left femur appears intact without fracture. There is minimal degenerative change at the knee.The bones are diffusely demineralized. The left tibia and fibula appear intact without fracture or dislocation. Joint spaces at the knee and ankle appear well-maintained. Impression: Impression: 1.No acute osseous abnormality. 2.Moderate osteoarthritis of both hips. 3.Severe diffuse pelvic and trochanteric enthesopathy. 4.Dilated small bowel loops in the central abdomen. Correlate for ileus or obstruction. Electronically Signed: Homero Perez MD 07/15/2025 12:01 AMEDT Workstation ID: [id number] XR Femur 2 View Left Result Date: 07/15/2025 XR FEMUR 2 VW LEFT XR TIBIA FIBULA 2 VW LEFT XR HIPS BILATERAL W OR WO PELVIS 5 VIEW Date of Exam: 2025 11:03 PM EDT Indication: fall, LLE pain/weakness, eval fxr and metastasis. Comparison: None available. Findings: The bony pelvis appears intact without fracture. There is severe diffuse pelvic and trochanteric enthesopathy. Mild symmetric SI joint degeneration. Pubic symphysis and obturato r rings appear intact. There is minimal lumbar spondylosis. There are dilated small bowel loops in the central abdomen measuring up to 3.6 cm diameter. There is also mild colonic fecal retention. There is moderate osteoarthritis of both hips. No evidence of hip fracture or dislocation. The mid and distal left femur appears intact without fracture. There is minimal degenerative change at the knee.The bones are diffusely demineralized. The left tibia and fibula appear intact without fracture or dislocation. Joint spaces at the knee and ankle appear well-maintained. Impression: Impression: 1.No acute osseous abnormality. 2.Moderate osteoarthritis of both hips. 3.Severe diffuse pelvic and trochanteric enthesopathy. 4.Dilated small bowel loops in the central abdomen. Correlate for ileus or obstruction. Electronically Signed: Homero Perez MD 07/15/2025 12:01 [place] Workstation ID: [id number] XR Tibia Fibula 2 View Left Result Date: 07/15/2025 XR FEMUR 2 VW LEFT XR TIBIA FIBULA 2 VW LEFT XR HIPS BILATERAL W OR WO PELVIS 5 VIEW Date of Exam: 2025 11:03 PM EDT Indication: fall, LLE pain/weakness, eval fxr and metastasis. Comparison: None available. Findings: The bony pelvis appears intact without fracture. There is severe diffuse pelvic and trochanteric enthesopathy. Mild symmetric SI joint degeneration. Pubic symphysis and obturato r rings appear intact. There is minimal lumbar spondylosis. There are dilated small bowel loops in the central abdomen measuring up to 3.6 cm diameter. There is also mild colonic fecal retention. There is moderate osteoarthritis of both hips. No evidence of hip fracture or dislocation. The mid and distal left femur appears intact without fracture. There is minimal degenerative change at the knee.The bones are diffusely demineralized. The left tibia and fibula appear intact without fracture or dislocation. Joint spaces at the knee and ankle appear well-maintained. Impression: Impression: 1.No acute osseous abnormality. 2.Moderate osteoarthritis of both hips. 3.Severe diffuse pelvic and trochanteric enthesopathy. 4.Dilated small bowel loops in the central abdomen. Correlate for ileus or obstruction. Electronically Signed: Homero Perez MD 07/15/2025 12:01 [place] Workstation ID: [id number] XR Chest 1 View Result Date: 2025 XR CHEST 1 VW Date of Exam: 2025 11:02 PM EDT Indication: fall. Comparison: Chest CT 06/10/2025. Findings: Stable right chest port. There is no pneumothorax, pleural effusion or focal airspace consolidation. Heart size and pulmonary vasculature appear within normal limits. Stable destructive lytic lesion noted at the right second rib. No acute osseous abnormality. Impression: Impression: 1.No acute cardiopulmonary abnormality. 2.Stable destructive lytic lesion at the right second rib. Electronically Signed: Homero Perez MD 2025 11:58 PM EDT WorkstationID: [id number] MRI Brain With & Without Contrast Result Date: 2025 MRI BRAIN W WO CONTRAST Date of Exam: 2025 11:14 PM EDT Indication: fall, LLE pain/weakness, eval fxr and metastasis. Comparison: Head CT 2025. Technique: Routine multiplanar/multisequence sequence images of the brain were obtained before and after the uneventful administration of Vueway. Findings: There is no diffusion restriction to suggest an acute infarct. Midline structures appear intact. Calvarial and superficial soft tissue signal is within normal limits. The temporomandibular joints and parotid glands appear symmetric. Dentition appears unremarkable. There are multiple enlarging intracranial metastasis. This includes a nodular metastasis that appears dural based in the anterior right frontal region on postcontrast 3D T1 axial image 107 measuring 10 mm with an adjacent nodular component laterally measuring 5 mm. Enlarging right frontal periventricular metastasis measuring 6 mm on image 113 of the same series. There is progressive nodular enhancement within the superior left of midline cerebellum on axial image 52 measuring 7 mm diameter. Enlarging right occipital metastasis measuring 13 mm on image 64. Enlarging left cerebellar metastasis measuring up to 18 mm diameter on image 43. Progressive enhancement in the lateral right cerebellum measuring 9 mm on image46. Paramedian right cerebellar metastasis measuring 10 mm on image 32 is also progressive. No defin ite new metastatic lesions. There is increased edema associated with the left cerebellar lesion resulting in mild mass effect without midline shift or ventricular effacement. There is stable edema signal within the brain matter at the right occipital metastasis. There is otherwise stable mild chronic small vessel ischemic change. There is no herniation. No evidence of acute or chronic intracranial hemorrhage. No diffusion restriction to suggest acute infarct. Orbits are symmetric. There is leftfrontal sinus mucosal disease and there is a left mastoid effusion. The major arterial flow voids appear intact. There is abnormal high T2 signal within the central cervical spinal cord at the level of the dens, which is seen on the last few images. This does raise concern for a more distal cord metastasis or compression. Recommend cervical MRI with IV contrast. Impression: Impression: 1.Multiple enlarging intracranial metastasis. There is increased edema associated with the left cerebellar metastasis resulting in mild mass effect without midline shift or ventricular effacement. 2.Abnormal high T2 signal within the central cervical spinal cord at the levelof the dens. This does raise concern for a more distal cord metastasis or compression. Recommend cervical MRI with IV contrast. 3.Stable mild chronic small vessel ischemic change. 4.Left frontal sinus mucosal disease and left mastoid effusion. Electronically Signed: Homero Perez MD 2025 11:45 PM EDT Workstation ID: [id number] CT Head Without Contrast Result Date: 2025 CT HEAD WO CONTRAST, CT LUMBAR SPINE WO CONTRAST, CT THORACIC SPINE WO CONTRAST, CT CERVICAL SPINE WO CONTRAST Date of Exam: 2025 9:24 PM EDT Indication: fall, LLE pain/weakness, eval fxr and metastasis. Comparison: Brain MRI 06/10/2025, CT chest abdomen pelvis 06/10/2025, CT soft tissue neck 11/27/2024 Technique: Axial CT images were obtained of the head and total spine without contrast administration. Automated exposure control and iterative construction methods were used. Findings: Head CT: Vague hypodensity in the right occipital lobe and left cerebellar hemisphere unchanged from priorMRI. These are in keeping with known intracranial metastases. Negative for large territory infarct,acute intracranial hemorrhage, midline shift or hydrocephalus. Mild periventricular hypodensity favoring sequelae of chronic microvascular ischemic change. No large extra-axial fluid collection. Orbits are symmetric. No obstructive sinus disease. No large mastoid effusion. No aggressive bone lesion or displaced fracture. Cervical spine: Osseous metastases without significant change from prior CT neck comparison. No visualized displaced fracture, vertebral body height loss or malalignment. Minimal degenerative disc disease. Overall mild facet arthropathy. Negative for high-grade central spinalcanal stenosis. Severe right neuroforaminal stenosis C3-C4 similar to prior, other show low-grade stenosis. Similar heterogeneous enlargement of the right thyroid gland outpatient thyroid ultrasound could be considered. Partially imaged right IJ central catheter. No suspicious adenopathy in the neck. Thoracic spine: Heterogeneous mixed lucent and sclerotic metastases without significant change from prior exam. Mild chronic superior endplate height loss of T1 and T10. There is multilevel degenerative change without high-grade central spinal canal stenosis. Severe neuroforaminal stenosis on theleft at T10-T11 and T11-T12 similar to prior exam. Heterogeneous more expansile rib lesions noted most significant involving the second, right posterior ninth and right posterior 12th ribs. Few chronic appearing nondisplaced rib fractures stable from prior pulse representing prior pathologic fractures. Right IJ central catheter terminates near the cavoatrial junction. No suspicious mediastinal orhilar adenopathy. Few pulmonary nodules measuring up to 6 mm left upper lobe image 54 series 2 uncha nged from 06/10/2025 CT comparison. Splenomegaly measuring up to 13 cm in maximum AP dimension without significant change from prior exam. Lumbar spine: Mixed lucent and sclerotic metastases without significant change from prior exam. Suspect old pathologic fracture with bony retropulsion at L4 by up to 4 mm image 33 series 5 unchanged from 06/10/2025 CT comparison. This may result in high- grade central spinal canal stenosis similar to prior exam. No visualized displaced acute fracture, vertebralbody height loss or traumatic malalignment of the lumbar spine. Multilevel degenerative disc disease and facet arthropathy with probably mild to moderate central spinal canal stenosis L2-L3 and L3-L4. Varying degrees of neuroforaminal stenosis up to moderate severity bilaterally L3-L4, severe rightmoderate to severe left L4-L5 and moderate bilateral L5-S1 probably similar to prior comparison. Novisualized retroperitoneal adenopathy. Few nonobstructing renal calculi largest in the left inferior pole measuring up to 1.3 cm unchanged from prior exam. Impression: Impression: 1. 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 No new suspicious pathologic fracture. 2. Similar-appearing probable old pathologic fracture at L4 with bony retropulsion resulting in possible high-gradecentral spinal canal stenosis. This could be assessed by MRI as clinically indicated. 3. Similar hypodense lesions in the right occipital lobe and left cerebellum, in keeping with intracranial metastases noted on prior contrasted MRI comparisons. 4. Stable small pulmonary nodules. Stable splenomegaly. No enlarging adenopathy to suggest disease progression. 5. Other chronic/ancillary findings as above. Electronically Signed: Galen Hawley MD 2025 10:10 PM EDT Workstation ID: [id number] CT Cervical Spine Without Contrast Result Date: 2025 CT HEAD WO CONTRAST, CT LUMBAR SPINE WO CONTRAST, CT THORACIC SPINE WO CONTRAST, CT CERVICAL SPINE WO CONTRAST Date of Exam: 2025 9:24 PM EDT Indication: fall, LLE pain/weakness, eval fxr and metastasis. Comparison: Brain MRI 06/10/2025, CT chest abdomen pelvis 06/10/2025, CT soft tissue neck 11/27/2024 Technique: Axial CT images were obtained of the head and total spine without contrast administration. Automated exposure control and iterative construction methods were used. Findings: Head CT: Vague hypodensity in the right occipital lobe and left cerebellar hemisphere unchanged from priorMRI. These are in keeping with known intracranial metastases. Negative for large territory infarct,acute intracranial hemorrhage, midline shift or hydrocephalus. Mild periventricular hypodensity favoring sequelae of chronic microvascular ischemic change. No large extra-axial fluid collection. Orbits are symmetric. No obstructive sinus disease. No large mastoid effusion. No aggressive bone lesion or displaced fracture. Cervical spine: Osseous metastases without significant change from prior CT neck comparison. No visualized displaced fracture, vertebral body height loss or malalignment. Minimal degenerative disc disease. Overall mild facet arthropathy. Negative for high-grade central spinalcanal stenosis. Severe right neuroforaminal stenosis C3-C4 similar to prior, other show low-grade stenosis. Similar heterogeneous enlargement of the right thyroid gland outpatient thyroid ultrasound could be considered. Partially imaged right IJ central catheter. No suspicious adenopathy in the neck. Thoracic spine: Heterogeneous mixed lucent and sclerotic metastases without significant change from prior exam. Mild chronic superior endplate height loss of T1 and T10. There is multilevel degenerative change without high-grade central spinal canal stenosis. Severe neuroforaminal stenosis on theleft at T10-T11 and T11-T12 similar to prior exam. Heterogeneous more expansile rib lesions noted most significant involving the second, right posterior ninth and right posterior 12th ribs. Few chronic appearing nondisplaced rib fractures stable from prior pulse representing prior pathologic fractures. Right IJ central catheter terminates near the cavoatrial junction. No suspicious mediastinal orhilar adenopathy. Few pulmonary nodules measuring up to 6 mm left upper lobe image 54 series 2 uncha nged from 06/10/2025 CT comparison. Splenomegaly measuring up to 13 cm in maximum AP dimension without significant change from prior exam. Lumbar spine: Mixed lucent and sclerotic metastases without significant change from prior exam. Suspect old pathologic fracture with bony retropulsion at L4 by up to 4 mm image 33 series 5 unchanged from 06/10/2025 CT comparison. This may result in high- grade central spinal canal stenosis similar to prior exam. No visualized displaced acute fracture, vertebralbody height loss or traumatic malalignment of the lumbar spine. Multilevel degenerative disc disease and facet arthropathy with probably mild to moderate central spinal canal stenosis L2-L3 and L3-L4. Varying degrees of neuroforaminal stenosis up to moderate severity bilaterally L3-L4, severe rightmoderate to severe left L4-L5 and moderate bilateral L5-S1 probably similar to prior comparison. Novisualized retroperitoneal adenopathy. Few nonobstructing renal calculi largest in the left inferior pole measuring up to 1.3 cm unchanged from prior exam. Impression: Impression: 1. 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 No new suspicious pathologic fracture. 2. Similar-appearing probable old pathologic fracture at L4 with bony retropulsion resulting in possible high-gradecentral spinal canal stenosis. This could be assessed by MRI as clinically indicated. 3. Similar hypodense lesions in the right occipital lobe and left cerebellum, in keeping with intracranial metastases noted on prior contrasted MRI comparisons. 4. Stable small pulmonary nodules. Stable splenomegaly. No enlarging adenopathy to suggest disease progression. 5. Other chronic/ancillary findings as above. Electronically Signed: Galen Hawley MD 2025 10:10 PM EDT Workstation ID: [id number] CT Thoracic Spine Without Contrast Result Date: 2025 CT HEAD WO CONTRAST, CT LUMBAR SPINE WO CONTRAST, CT THORACIC SPINE WO CONTRAST, CT CERVICAL SPINE WO CONTRAST Date of Exam: 2025 9:24 PM EDT Indication: fall, LLE pain/weakness, eval fxr and metastasis. Comparison: Brain MRI 06/10/2025, CT chest abdomen pelvis 06/10/2025, CT soft tissue neck 11/27/2024 Technique: Axial CT images were obtained of the head and total spine without contrast administration. Automated exposure control and iterative construction methods were used. Findings: Head CT: Vague hypodensity in the right occipital lobe and left cerebellar hemisphere unchanged from priorMRI. These are in keeping with known intracranial metastases. Negative for large territory infarct,acute intracranial hemorrhage, midline shift or hydrocephalus. Mild periventricular hypodensity favoring sequelae of chronic microvascular ischemic change. No large extra-axial fluid collection. Orbits are symmetric. No obstructive sinus disease. No large mastoid effusion. No aggressive bone lesion or displaced fracture. Cervical spine: Osseous metastases without significant change from prior CT neck comparison. No visualized displaced fracture, vertebral body height loss or malalignment. Minimal degenerative disc disease. Overall mild facet arthropathy. Negative for high-grade central spinalcanal stenosis. Severe right neuroforaminal stenosis C3-C4 similar to prior, other show low-grade stenosis. Similar heterogeneous enlargement of the right thyroid gland outpatient thyroid ultrasound could be considered. Partially imaged right IJ central catheter. No suspicious adenopathy in the neck. Thoracic spine: Heterogeneous mixed lucent and sclerotic metastases without significant change from prior exam. Mild chronic superior endplate height loss of T1 and T10. There is multilevel degenerative change without high-grade central spinal canal stenosis. Severe neuroforaminal stenosis on theleft at T10-T11 and T11-T12 similar to prior exam. Heterogeneous more expansile rib lesions noted most significant involving the second, right posterior ninth and right posterior 12th ribs. Few chronic appearing nondisplaced rib fractures stable from prior pulse representing prior pathologic fractures. Right IJ central catheter terminates near the cavoatrial junction. No suspicious mediastinal orhilar adenopathy. Few pulmonary nodules measuring up to 6 mm left upper lobe image 54 series 2 uncha nged from 06/10/2025 CT comparison. Splenomegaly measuring up to 13 cm in maximum AP dimension without significant change from prior exam. Lumbar spine: Mixed lucent and sclerotic metastases without significant change from prior exam. Suspect old pathologic fracture with bony retropulsion at L4 by up to 4 mm image 33 series 5 unchanged from 06/10/2025 CT comparison. This may result in high- grade central spinal canal stenosis similar to prior exam. No visualized displaced acute fracture, vertebralbody height loss or traumatic malalignment of the lumbar spine. Multilevel degenerative disc disease and facet arthropathy with probably mild to moderate central spinal canal stenosis L2-L3 and L3-L4. Varying degrees of neuroforaminal stenosis up to moderate severity bilaterally L3-L4, severe rightmoderate to severe left L4-L5 and moderate bilateral L5-S1 probably similar to prior comparison. Novisualized retroperitoneal adenopathy. Few nonobstructing renal calculi largest in the left inferior pole measuring up to 1.3 cm unchanged from prior exam. Impression: Impression: 1. 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 No new suspicious pathologic fracture. 2. Similar-appearing probable old pathologic fracture at L4 with bony retropulsion resulting in possible high-gradecentral spinal canal stenosis. This could be assessed by MRI as clinically indicated. 3. Similar hypodense lesions in the right occipital lobe and left cerebellum, in keeping with intracranial metastases noted on prior contrasted MRI comparisons. 4. Stable small pulmonary nodules. Stable splenomegaly. No enlarging adenopathy to suggest disease progression. 5. Other chronic/ancillary findings as above. Electronically Signed: Galen Hawley MD 2025 10:10 PM EDT Workstation ID: [id number] CT Lumbar Spine Without Contrast Result Date: 2025 CT HEAD WO CONTRAST, CT LUMBAR SPINE WO CONTRAST, CT THORACIC SPINE WO CONTRAST, CT CERVICAL SPINE WO CONTRAST Date of Exam: 2025 9:24 PM EDT Indication: fall, LLE pain/weakness, eval fxr and metastasis. Comparison: Brain MRI 06/10/2025, CT chest abdomen pelvis 06/10/2025, CT soft tissue neck 11/27/2024 Technique: Axial CT images were obtained of the head and total spine without contrast administration. Automated exposure control and iterative construction methods were used. Findings: Head CT: Vague hypodensity in the right occipital lobe and left cerebellar hemisphere unchanged from priorMRI. These are in keeping with known intracranial metastases. Negative for large territory infarct,acute intracranial hemorrhage, midline shift or hydrocephalus. Mild periventricular hypodensity favoring sequelae of chronic microvascular ischemic change. No large extra-axial fluid collection. Orbits are symmetric. No obstructive sinus disease. No large mastoid effusion. No aggressive bone lesion or displaced fracture. Cervical spine: Osseous metastases without significant change from prior CT neck comparison. No visualized displaced fracture, vertebral body height loss or malalignment. Minimal degenerative disc disease. Overall mild facet arthropathy. Negative for high-grade central spinalcanal stenosis. Severe right neuroforaminal stenosis C3-C4 similar to prior, other show low-grade stenosis. Similar heterogeneous enlargement of the right thyroid gland outpatient thyroid ultrasound could be considered. Partially imaged right IJ central catheter. No suspicious adenopathy in the neck. Thoracic spine: Heterogeneous mixed lucent and sclerotic metastases without significant change from prior exam. Mild chronic superior endplate height loss of T1 and T10. There is multilevel degenerative change without high-grade central spinal canal stenosis. Severe neuroforaminal stenosis on theleft at T10-T11 and T11-T12 similar to prior exam. Heterogeneous more expansile rib lesions noted most significant involving the second, right posterior ninth and right posterior 12th ribs. Few chronic appearing nondisplaced rib fractures stable from prior pulse representing prior pathologic fractures. Right IJ central catheter terminates near the cavoatrial junction. No suspicious mediastinal orhilar adenopathy. Few pulmonary nodules measuring up to 6 mm left upper lobe image 54 series 2 uncha nged from 06/10/2025 CT comparison. Splenomegaly measuring up to 13 cm in maximum AP dimension without significant change from prior exam. Lumbar spine: Mixed lucent and sclerotic metastases without significant change from prior exam. Suspect old pathologic fracture with bony retropulsion at L4 by up to 4 mm image 33 series 5 unchanged from 06/10/2025 CT comparison. This may result in high- grade central spinal canal stenosis similar to prior exam. No visualized displaced acute fracture, vertebralbody height loss or traumatic malalignment of the lumbar spine. Multilevel degenerative disc disease and facet arthropathy with probably mild to moderate central spinal canal stenosis L2-L3 and L3-L4. Varying degrees of neuroforaminal stenosis up to moderate severity bilaterally L3-L4, severe rightmoderate to severe left L4-L5 and moderate bilateral L5-S1 probably similar to prior comparison. Novisualized retroperitoneal adenopathy. Few nonobstructing renal calculi largest in the left inferior pole measuring up to 1.3 cm unchanged from prior exam. Impression: Impression: 1. 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 No new suspicious pathologic fracture. 2. Similar-appearing probable old pathologic fracture at L4 with bony retropulsion resulting in possible high-gradecentral spinal canal stenosis. This could be assessed by MRI as clinically indicated. 3. Similar hypodense lesions in the right occipital lobe and left cerebellum, in keeping with intracranial metastases noted on prior contrasted MRI comparisons. 4. Stable small pulmonary nodules. Stable splenomegaly. No enlarging adenopathy to suggest disease progression. 5. Other chronic/ancillary findings as above. Electronically Signed: Galen Hawley MD 2025 10:10 PM EDT Workstation ID: [id number] Results for orders placed during the hospital encounter of 08/25/24 Adult Transthoracic Echo Complete W/ Cont if Necessary Per Protocol 08/25/2024 4:54 PM Interpretation Summary Left ventricular systolic function is normal. Estimated left ventricular EF = 65% Normal global longitudinal LV strain (GLS) = -19.2% The cardiac valves are anatomically and functionally normal. I have personally reviewed the therapy plans: [] PT/OT/ ST Therapy Plans Current medications: Scheduled Meds:dexAMETHasone, 6 mg, Intravenous, Q6H donepezil, 10 mg, Oral, Nightly famotidine, 40 mg, Oral, Daily insulin lispro, 2-7 Units, Subcutaneous, 4x Daily AC & at Bedtime memantine, 5 mg, Oral, BID sodium chloride, 10 mL, Intravenous, Q12H Continuous Infusions:Pharmacy Consult, PRN Meds:. aluminum-magnesium hydroxide-simethicone senna-docusate sodium AND polyethylene glycol AND bisacodyl AND bisacodyl Calcium Replacement - Follow Nurse / BPA Driven Protocol dextrose dextrose glucagon (human recombinant) HYDROmorphone Magnesium Cardiology Dose Replacement - Follow Nurse / BPA Driven Protocol [DISCONTINUED] Morphine AND naloxone nitroglycerin ondansetron oxyCODONE Pharmacy Consult Phosphorus Replacement - Follow Nurse / BPA Driven Protocol Potassium Replacement - Follow Nurse / BPA Driven Protocol sodium chloride sodium chloride Assessment & Plan Assessment & Plan Active Hospital Problems Diagnosis POA Cauda equina syndrome [G83.4] Yes Falls [R29.6] Not Applicable Anemia, chronic disease [D63.8] Yes Thrombocytopenia [D69.6] Yes Stage 3b chronic kidney disease [N18.32] Yes Moderate protein-calorie malnutrition [E44.0] Yes Breast cancer metastasized to bone [C50.919, C79.51] Yes Resolved Hospital Problems No resolved problems to display. Brief Hospital Course to date: Peter Parnell is a 65 y.o. female w stage IV breast cancer since 2019, DM2, anemia, who presented for evaluation of difficulty walking, multiple falls. MRI cervical spine consistent with intramedullary mass within the spinal cord at C6- 7 compatible with metastatic disease and is the likely source of patient's symptoms. Neurosurgery, oncology, radiation oncology consulted. Stage IV breast cancer with mets to the brain, bone, spine, liver T12 lesion w cord compression C6-7 intramedullary metastasis -Radiation oncology following, plan for radiation on 07/16 and again on 07/19 -Neurosurgery followed; nonoperative management recommended -Oncology consulted -Neurochecks every 4 hours -Continue decadron IV every 6 hours per discussion with radiation oncology -PRN pain control, symptom management -PT/OT rec home w 22/04 care, -Here through the weekend at least per discussion w Rad/Onc given risk of spinal swelling w radiation. So plan for treatment on 07/16 and again on 07/19 w continued IV steroids through at least 07/19--> discussed w pt -Awaiting response from oncology regarding resumption of Nerlynx vs holding off on this medication Hallucinations, potentially medication-induced +/- hospital delirium - Discussed with patient and she would like to make medication adjustments; discontinued Lyrica, asneeded benzodiazepine and changed [place] to as needed Roxicodone and will reassess -If does not resolve with the above changes, likely then related to steroids plus or minus hospitaldelirium; discussed w pt Pancytopenia in setting of malignancy and neratinib -Monitor CKD stage IIIb -Baseline Cr 1-1.6 -Monitor DM2-SSI Memory impairment- Donepezil, Namenda resumed Patients' mobility limitations impair their ability to participate in activities such as toileting,feeding, dressing, grooming, and bathing. Mobility limitations cannot be resolved by a cane or walker. The patient is able to safely use a manual wheelchair, and she will also have a caregiver in thehome as well to help assist with the patient maneuvering. Pharmacy consulted for med rec Expected Discharge Location and Transportation: , 22/04 care Expected Discharge Expected Discharge Date: 07/20/2025; Expected Discharge Time: VTE Prophylaxis: Mechanical VTE prophylaxis orders are present. AM-PAC 6 Clicks Score (PT): 17 (07/16/25 1076) CODE STATUS: Code Status and Medical Interventions: CPR (Attempt to Resuscitate); Full Support Ordered at: 07/15/25 0205 Code Status (Patient has no pulse and is not breathing): CPR (Attempt to Resuscitate) Medical Interventions (Patient has pulse or is breathing): Full Support Level Of Support Discussed With: Patient Everton Lassiter MD 07/16/25 * Bryn Valera MD - 07/16/2025 6:49 AM EDT NEUROSURGERY PROGRESS NOTE LOS: 1 day Patient Care Team: Loretta Landon MD as PCP - General Loretta Landon MD as PCP - Family Medicine Bryn Valera MD as Surgeon (Neurosurgery) Flower Mackay MD as Consulting Physician (Radiation Oncology) Valentina Sadler MD as Referring Physician (Hematology) Crow Rouse MD as Consulting Physician (Radiation Oncology) Valentina Sadler MD as Referring Physician (Hematology) Chief Complaint: Generalized weakness and falling. Interval History: Patient Complaints: Generalized weakness, left greater than right. Patient Denies: Voiding difficulty. Review of Systems: Musculoskeletal and Neurological systems were reviewed and are negative except for: Musculoskeletal: positive for back pain. Neurological: positive for weakness. Vital Signs: Blood pressure 140/72, pulse 62, temperature 97.6 ??F (36.4 ??C), temperature source Oral, resp. rate 18, height 170.2 cm (67 ), weight 72.1 kg (159 lb), SpO2 95%, not currently . Intake/Output: Intake/Output Summary (Last 24 hours) at 07/16/2025 0649 Last data filed at 07/15/2025 1747 Gross per 24 hour Intake 400 ml Output 1100 ml Net -700 ml Physical Exam: The patient awakens easily. She is pleasant and cooperative. 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 Her left lower extremity has approximately 4 -/5 strength but testing is a bit limited due to pain in her left anterior thigh. Data Review: MRI of the cervical spine demonstrates an enhancing intrinsic lesion within the cervical spinal cord at the C6-7 level. There is some signal change and widening of the cord above that consistent withedema. I would agree with the radiologist that this is likely intramedullary. Assessment/Plan: 1. 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 2. Diffuse bony spinal metastases. 3. Multiple brain metastases. 4. Generalized weakness for the most part due to her intrinsic spinal cord metastasis but also due to systemic disease and treatment. 5. Widely disseminated metastatic 6. Disposition: Radiotherapy is to ensue for her intrinsic spinal cord tumor. Presently there is norole for surgical intervention. Neurosurgery will see on an as-needed basis. Bryn Valera MD 07/16/25 06:49 EDT * Crow Rouse MD - 07/15/2025 2:51 PM EDT Images from the original note were not included. RADIATION ONCOLOGY NOTE 07/15/2025 Ms. Parnell completed her MRI of the C spine. The results are pending. I reviewed the images. She has a intramedullary mass within the spinal cord at C6-7 compatible with metastatic disease. A screenshot is below showing a sagittal image with the enhancing tumor in the cord: This is the site of disease most likely causing her symptoms. Please continue her on Dexamethasone as prescribed. We will need to treat her with radiation to the cervical spine and this will need to take priority over the bony sites of disease at T12 and L4. I will coordinate for her to undergo simulation first thing in the morning and we will start tomorrow. Likely will treat her to 20 Gy in 5 fractions. * Summer Mistry RD - 07/15/2025 12:22 PM EDT Images from the original note were not included. Malnutrition Severity Assessment Patient Name: Peter Parnell Date of : 1960 Admit Date: 2025 Patient meets criteria for : Moderate (non-severe) Malnutrition Malnutrition Severity Assessment Malnutrition Type: Chronic Disease - Related Malnutrition Malnutrition Type (Last 8 Hours) Malnutrition Severity Assessment Row Name 07/15/25 1218 Malnutrition Severity Assessment Malnutrition Type Chronic Disease - Related Malnutrition Row Name 07/15/25 1218 Insufficient Energy Intake Insufficient Energy Intake Findings Moderate Insufficient Energy Intake <75% of est. energy requirement for > or equal to 3 months Row Name 07/15/25 1218 Unintentional Weight Loss Unintentional Weight Loss Findings -- 49lb wt loss over 3 years, 24% wt loss Row Name 07/15/25 1218 Muscle Loss Loss of Muscle Mass Findings Moderate Spiritism Region Moderate - slight depression Clavicle Bone Region Moderate - some protrusion in females, visible in males Row Name 07/15/25 1218 Fat Loss Subcutaneous Fat Loss Findings Moderate moderate buccal wasting Orbital Region Moderate - somewhat hollowness, slightly dark circles Row Name 07/15/25 1218 Criteria Met (Must meet criteria for severity in at least 2 of these categories: M Wasting, Fat Loss, Fluid, Secondary Signs, Wt. Status, Intake) Patient meets criteria for Moderate (non-severe) Malnutrition Electronically signed by: Summer Mistry RD 07/15/25 12:22 EDT * Summer Mistry RD - 07/15/2025 12:04 PM EDT Patient Name: Peter Parnell Date of : 1960 Admission date: 2025 Reason for Encounter: MD Consult [facility] Clinical Nutrition Assessment Subjective Subjective Information 16: pt resting in bed, frail appearing, reports she is hungry as she has not been able to eat yet, is planning to have a scan today, reports gradual wt loss over past several years since dx of cancer, she used to weigh ~209lb's, she experiences occasional nausea with chemotherapy, typically drinks abarca protein shake daily, only has 2 meals per day, is able to swallow ok Objective H&P and Current Problems H&P Past Medical History: Diagnosis Date Back problem Bone cancer Mets Breast cancer Diabetes mellitus Drug therapy 12/2013 History of radiation therapy 01/19/2022 L3-L5, sacrum History of radiation therapy 09/26/2022 Whole brain radiotherapy Hx of radiation therapy 04/2014 Kidney stone Liver carcinoma Mets Malignant neoplasm of upper-outer quadrant of left breast in female, estrogen receptor positive 08/22/2016 Neuropathy Radiation Past Surgical History: Procedure Laterality Date BREAST BIOPSY Left BREAST LUMPECTOMY Left 11/2013 CATARACT EXTRACTION Right 02/11/2024 HEAD/NECK LESION/CYST EXCISION Right 12/02/2020 Procedure: WIDE EXCISION MALIGNANT LESION OF SCALP; Surgeon: Evesn Wagner MD; Location: [facility]; Service: General; Laterality: Right; LIVER BIOPSY 09/22/2019 OOPHORECTOMY PORTACATH PLACEMENT Right 2020 SKIN FULL THICKNESS GRAFT Right 12/02/2020 Procedure: FULL THICKNESS SKIN GRAFT, RESECTION OF TUMOR OF RIGHT NECK; Surgeon: Evens Wagner MD; Location: [facility]; Service: General; Laterality: Right; Current Problems Admission Diagnosis: Cauda equina syndrome [G83.4] Problem List: Cauda equina syndrome Breast cancer metastasized to bone Falls Anemia, chronic disease Thrombocytopenia Stage 3b chronic kidney disease Applicable Nutrition Hx Initial dx breast cancer 2013 LIver and bone mets dx 2018 Brain mets dx 2021 Anthropometrics Height: 170.2 cm (67 ) Weight: 72.1 kg (159 lb) (07/15/25 1034) Weight Method: Standing scale BMI (Calculated): 24.9 Trending Weight Changes 07/15/25: per EMR ~ 49lb wt loss over past 3 years, 24 % wt loss Weight History Wt Readings from Last 20 Encounters: 07/15/25 1034 72.1 kg (159 lb) 07/15/25 0250 71 kg (156 lb 9.6 oz) 07/14/25 2001 71.7 kg (158 lb) 06/16/25 1504 72.6 kg (160 lb) 05/05/25 1320 71.6 kg (157 lb 14.4 oz) 05/05/25 1337 71.7 kg (158 lb) 03/25/25 1350 72.1 kg (159 lb) 02/25/25 1222 73 kg (161 lb) 02/25/25 1314 73 kg (161 lb) 01/28/25 1521 73 kg (161 lb) 12/24/24 1455 72.1 kg (159 lb) 12/24/24 1517 72.4 kg (159 lb 11.2 oz) 12/03/24 0857 72.1 kg (158 lb 14.4 oz) 11/12/24 0841 71.2 kg (157 lb) 11/27/24 0920 71.2 kg (157 lb) 10/22/24 0850 74.4 kg (164 lb) 10/01/24 0843 73.9 kg (163 lb) 09/10/24 0833 73.9 kg (163 lb) 09/10/24 0852 73.9 kg (163 lb) 08/20/24 0940 73.9 kg (163 lb) 07/30/24 0935 72.6 kg (160 lb) 07/09/24 1000 74.2 kg (163 lb 8 oz) Pt weighed 205lb's at oncology clinic 01-09-22 Labs Results from last 7 days Lab Units 07/15/25 0918 07/14/25 2206 SODIUM mmol/L 139 142 POTASSIUM mmol/L 4.0 4.3 GLUCOSE mg/dL 182* 133* BUN mg/dL 25.7* 27.0* CREATININE mg/dL 1.47* 1.66* CALCIUM mg/dL 9.6 9.8 PHOSPHORUS mg/dL 3.6 -- MAGNESIUM mg/dL 1.5* -- ALBUMIN g/dL 3.9 4.0 BILIRUBIN mg/dL 0.4 0.4 ALK PHOS U/L 144* 151* AST (SGOT) U/L 43* 40* ALT (SGPT) U/L 27 28 Results from last 7 days Lab Units 07/15/25 0918 07/14/25 2206 PLATELETS 10*3/mm3 69* 90* HEMOGLOBIN g/dL 8.5* 8.1* HEMATOCRIT % 27.9* 26.7* Lab Results Component Value Date HGBA1C 5.83 (H) 07/15/2025 Medications Scheduled Medications dexAMETHasone, 6 mg, Intravenous, Q6H famotidine, 40 mg, Oral, Daily insulin lispro, 2-7 Units, Subcutaneous, 4x Daily AC & at Bedtime magnesium sulfate, 2 g, Intravenous, Q2H pregabalin, 75 mg, Oral, Daily sodium chloride, 10 mL, Intravenous, Q12H Infusions sodium chloride, 75 mL/hr, Last Rate: 75 mL/hr (07/15/25 0317) PRN Medications ALPRAZolam aluminum-magnesium hydroxide-simethicone senna-docusate sodium AND polyethylene glycol AND bisacodyl AND bisacodyl Calcium Replacement - Follow Nurse / BPA Driven Protocol dextrose dextrose glucagon (human recombinant) HYDROcodone-acetaminophen Magnesium Cardiology Dose Replacement - Follow Nurse / BPA Driven Protocol Morphine AND naloxone nitroglycerin ondansetron Phosphorus Replacement - Follow Nurse / BPA Driven Protocol Potassium Replacement - Follow Nurse / BPA Driven Protocol sodium chloride sodium chloride Physical Findings Chewing/Swallowing No issues identified at this time Dentition Mouth/Teeth WDL: WDL Skin WNL Bowel function Last Bowel Movement: 07/14/25 (07/15/25 0820) Edema None observed Intake & Output (last 3 days) 07/12 0707/13 0707/13 0707/14 0707/14 0707/15 0707/15 07 Urine (mL/kg/hr) 400 400 (1.1) Total Output 400 400 Net -400 -400 Nutrition Focused Physical Exam 07/15/25: NFPE completed, consistent with nutrition diagnosis of malnutrition using AND/ASPEN criteria. See MSA below. Current Nutrition Orders & Evaluation of Intake Oral Nutrition Food Allergies/Intolerances NKA Current PO Diet Diet: Diabetic; Consistent Carbohydrate; Fluid Consistency: Thin (IDDSI 0) Oral Nutrition Supplement None Trending % PO Intake 07/15/25: no data Assessment & Plan Nutrition Diagnosis and Goals Nutrition Diagnosis 1 Moderate chronic disease or condition related malnutrition 2nd breast cancer with mets, evidenced by 49lb wt loss over 3 years, 24% wt loss, moderate muscle wasting, fat loss Goal(s) Establish PO Intake Nutrition Intervention and Prescription Intervention Liberalize diet, Start oral nutrition supplement, Advised available snacks, and Completed NFPE Diet Prescription Change to Regular diet to encourage po intake Supplement Prescription Add Magic Cups 2x/day Encourage frequent small meals, and snacks Monitoring/Evaluation Monitor/Evaluation Per Protocol, I&O, PO Intake, Oral Nutrition Supplement Intake, Pertinent Labs, Weight, Skin Status, GI Status, Symptoms, and Swallow Function RD Follow-Up Encounter 3-5 days 45min Electronically signed by: Summer Mistry RD 07/15/25 12:04 EDT * Everton Lassiter MD - 07/15/2025 9:28 AM EDT Images from the original note were not included. [facility] ADMISSION FOLLOW-UP NOTE Patient admitted after midnight, H&P by my partner performed earlier on today's date reviewed. Interim findings, labs, and charting also reviewed. [facility] Problem List has been managed and updated to include any new diagnoses: Active Hospital Problems Diagnosis POA Cauda equina syndrome [G83.4] Yes Falls [R29.6] Not Applicable Anemia, chronic disease [D63.8] Yes Thrombocytopenia [D69.6] Yes Stage 3b chronic kidney disease [N18.32] Yes Breast cancer metastasized to bone [C50.919, C79.51] Yes Resolved Hospital Problems No resolved problems to display. ADDITIONAL PLAN: - detailed assessment and plan from admission reviewed - patient seen and examined 65yo F w stage IV breast cancer since 2019, DM2, anemia, who presented for evaluation of difficultywalking, multiple falls. MRI cervical spine consistent with intramedullary mass within the spinal cord at C6-7 compatible with metastatic disease and is the likely source of patient's symptoms. Neurosurgery, oncology, radiation oncology consulted. Stage IV breast cancer with mets to the brain, bone, spine, liver T12 lesion w cord compression C6-7 intramedullary metastasis -Radiation oncology following, plan for radiation x 5 fractions starting 07/16 -Neurosurgery following, plan for likely nonoperative management -Oncology consulted -Neurochecks every 4 hours -Continue decadron -PRN pain control, symptom management -PT/OT Pancytopenia in setting of malignancy and neratinib -Monitor CKD stage IIIb -Baseline Cr 1-1.6 -Monitor DM2-SSI Expected Discharge Expected Discharge Date: 07/17/2025; Expected Discharge Time: Everton Lassiter MD 07/15/25 documented in this encounter H&P Notes * Meaghan Guerrier MD - 07/15/2025 1:17 AM EDT Images from the original note were not included. [facility] HISTORY AND PHYSICAL Patient Name: Peter Parnell : 1960 Primary Care Physician: Loretta Landon MD Date of admission: 2025 Subjective Subjective Chief Complaint: Falls at home Falls with left leg weakness and balance loss, left leg numbness and dragging sensation when walking HPI: Peter Parnell is a 65 y.o. female a history of metastatic breast cancer who presents with increasing falls and left leg weakness. She reports having falls every day that are becoming more frequent, describing that she loses her balance without feeling dizzy. One specific incident occurred while putting items in the pantry when she turned around and fell. She has not hit her head during any of the falls. Falls ongoing for several days. at bedside. The left leg weakness began with her first fall and is associated with walking with a slight limp, described by others as walking a little crooked. The left leg feels somewhat numb and drags when she tries to walk, though she denies pins and needles sensation. She experiences some nausea related to Nourianz medication that she has been taking for 8 months, which she manages with Zofran. She reports feeling cold all the time, attributing this to the overall effects of chemotherapy and cancer. She has urinary frequency for about a month, requiring frequent urination, though the urine appearsnormal in color and odor without blood. 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 She occasionally experiences vertigo, noting a significant episode after an echocardiogram a few months ago that left her exhausted for twodays, though she has not had vertigo since then. For pain management, she takes Percocet 7.5 mg, usually half a pill daily, taking a whole pill whenshe needs to sleep. She only experiences pain after falls. She uses conserving shakes in the mornings as nutritional supplements and has attempted yoga a couple of times. Her neck feels stiff, which she attributes to sleeping poorly over the last few nights due to her falls. She denies fever, chills, blood in stool or urine, cough, chest pain, burning with urination, abdominal pain, or room-spinning dizziness currently. Personal History Past Medical History: Diagnosis Date Back problem Bone cancer Mets Breast cancer Diabetes mellitus Drug therapy 12/2013 History of radiation therapy 01/19/2022 L3-L5, sacrum History of radiation therapy 09/26/2022 Whole brain radiotherapy Hx of radiation therapy 04/2014 Kidney stone Liver carcinoma Mets Malignant neoplasm of upper-outer quadrant of left breast in female, estrogen receptor positive 08/22/2016 Neuropathy Radiation Oncology Problem List: Brain metastases (09/06/2022; Status: Active) Adenocarcinoma of 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 (09/25/2019; Status: Active) Breast cancer metastasized to bone (09/25/2019; Status: Active) Malignant neoplasm of upper-outer quadrant of left breast in female, estrogen receptor positive (08/22/2016; Status: Active) Oncology/Hematology History Malignant neoplasm of upper-outer quadrant of left breast in female, estrogen receptor positive 11/02/2013 Initial Diagnosis Malignant neoplasm of upper-outer quadrant of left female breast 12/01/2013 Cancer Staged Staging form: Breast, AJCC V7 - Clinical stage from 12/01/2013: Stage IIA (T1b, N1, M0) - Signed by Valentina Sadler MD on 09/25/2019 Chemotherapy 1. TCH-P Adjuvantly x 6 cycles [...] 01/11/2022 - Chemotherapy OP BREAST Fam-Trastuzumab Deruxtecan-nxki Breast cancer metastasized to bone 09/25/2019 Initial Diagnosis Bone metastases [...] brain via External Beam Radiation - EBRT. Past Surgical History: Procedure Laterality Date BREAST BIOPSY Left BREAST LUMPECTOMY Left 11/2013 CATARACT EXTRACTION Right 02/11/2024 HEAD/NECK LESION/CYST EXCISION Right 12/02/2020 Procedure: WIDE EXCISION MALIGNANT LESION OF SCALP; Surgeon: Evens Wagner MD; Location: [facility]; Service: General; Laterality: Right; LIVER BIOPSY 09/22/2019 OOPHORECTOMY PORTACATH PLACEMENT Right 2019 SKIN FULL THICKNESS GRAFT Right 12/02/2020 Procedure: FULL THICKNESS SKIN GRAFT, RESECTION OF TUMOR OF RIGHT NECK; Surgeon: Evens Wagner MD; Location: [facility]; Service: General; Laterality: Right; Family History: family history includes Cancer in her mother and sister; Diabetes in her mother andsister; Kidney cancer in her sister; Lung cancer in her mother; No Known Problems in her father. Social History: reports that she has never smoked. She has never used smokeless tobacco. She reports that she does not currently use alcohol. She reports that she does not use drugs. Social History Social History Narrative Not on file Medications: Available home medication information reviewed. Carboxymethylcellulose Sodium, Neratinib, capecitabine, colestipol, cyclobenzaprine, donepezil, erythromycin, fam-trastuzumab deruxtec-nxki, glimepiride, hydroCHLOROthiazide, lidocaine-prilocaine, loperamide, magnesium oxide, meclizine, memantine, metFORMIN, methylPREDNISolone, moxifloxacin, multivitamin with minerals, ondansetron, oxyCODONE-acetaminophen, potassium & sodium phosphates, and prednisoLONE acetate Allergies[1] Objective Objective Vital Signs: Temp: [98.6 ??F (37 ??C)] 98.6 ??F (37 ??C) Heart Rate: [84-114] 84 Resp: [18] 18 BP: (117-135)/(59-74) 127/64 Physical Exam Vitals reviewed. Constitutional: General: She is not in acute distress. HENT: Head: Normocephalic and atraumatic. Right Ear: External ear normal. Left Ear: External ear normal. Nose: Nose normal. Mouth/Throat: Mouth: Mucous membranes are moist. Pharynx: Oropharynx is clear. Eyes: General: No scleral icterus. Extraocular Movements: Extraocular movements intact. Pupils: Pupils are equal, round, and reactive to light. Cardiovascular: Rate and Rhythm: Normal rate and regular rhythm. Pulses: Normal pulses. Heart sounds: Normal heart sounds. No murmur heard. Pulmonary: Effort: No respiratory distress. Breath sounds: Normal breath sounds. No stridor. No wheezing. Abdominal: General: Abdomen is flat. Bowel sounds are normal. There is no distension. Palpations: Abdomen is soft. Tenderness: There is no abdominal tenderness. There is no guarding. Genitourinary: Comments: deferred Musculoskeletal: General: Signs of injury present. Cervical back: Normal range of motion and neck supple. Tenderness present. No rigidity. Comments: ROM RLE wnl +limited ROM of left lower extremity: patient unable to passively move LLE and requires use of her hands to lift her leg Patient unable to demonstrate hip flexion movement; minimally able to flex left knee Skin: General: Skin is warm and dry. Capillary Refill: Capillary refill takes less than 2 seconds. Coloration: Skin is pale. Skin is not jaundiced. Findings: Bruising present. Comments: Bruising on arms from falls Neurological: Mental Status: She is alert and oriented to person, place, and time. Cranial Nerves: No cranial nerve deficit. Sensory: Sensory deficit present. Motor: Weakness present. Gait: Gait abnormal. Comments: +numbness LLE Psychiatric: Mood and Affect: Mood normal. Behavior: Behavior normal. Thought Content: Thought content normal. Result Review: I have personally reviewed the results from the time of this admission to 07/15/2025 02:45 EDT and agree with these findings: [x] Laboratory list / accordion [x] Microbiology [x] Radiology [x] EKG/Telemetry [] Cardiology/Vascular [] Pathology [x] Old records [] Other: Most notable findings include: LAB RESULTS: Lab 07/14/25 220 WBC 4.79 HEMOGLOBIN 8.1* HEMATOCRIT 26.7* PLATELETS 90* NEUTROS ABS 3.90 IMMATURE GRANS (ABS) 0.02 LYMPHS ABS 0.44* MONOS ABS 0.40 EOS ABS 0.02 MCV 84.2 Lab 07/14/25 2206 SODIUM 142 POTASSIUM 4.3 CHLORIDE 103 CO2 25.5 ANION GAP 13.5 BUN 27.0* CREATININE 1.66* EGFR 34.3* GLUCOSE 133* CALCIUM 9.8 Lab 07/14/25 2206 TOTAL PROTEIN 7.3 ALBUMIN 4.0 GLOBULIN 3.3 ALT (SGPT) 28 AST (SGOT) 40* BILIRUBIN 0.4 ALK PHOS 151* UA 2025 22:43 Urinalysis Squamous Epithelial Cells, UA 0-2 Specific [place], UA 1.011 Ketones, UA Negative Blood, UA Small (1+) Leukocytes, UA Trace Nitrite, UA Negative RBC, UA 3-5 WBC, UA 0-2 Bacteria, UA None Seen Microbiology Results (last 10 days) No results found for the last 240 hours. MRI Lumbar Spine With & Without Contrast Result Date: 07/15/2025 MRI LUMBAR SPINE W WO CONTRAST Date of Exam: 2025 11:15 PM EDT Indication: eval cauda equina,mets, fxr. Comparison: CT lumbar 2025 and MR lumbar spine 12/17/2021. Technique: Routine multiplanar/multisequence sequence images of the lumbar spine were obtained before and after the uneventful administration of Vueway. Findings: There is redemonstration of an avidly enhancing metastasis occupying the right and posterior aspects of the T12 vertebral body extending into the right 12th rib and transverse process with associated bone destruction and soft tissue mass. There are multiple additional lumbar spinal metastasis that appear mixed signal intensity without significant enhancement.Metastatic lesions are noted at L3, L4, L5 and S1. There is stable posterior inferior endplate compression fracture at L4, which appears pathologic and is associated with an intravertebral disc herniation. This results in retropulsion of the posterior cortex up to 6 mm and results in high-grade spinal canal stenosis with compression of the cauda equina. There is an additional metastasis in the right ilium. Compared with the MRI dated 12/17/2021, the majority of the metastasis appear to have decreased in size and appear less sclerotic, but the large enhancing metastasis in the T12 vertebral body and right 12th rib appears new from 2021. There is no new fracture. There is mild to moderate diffuse disc space narrowing and mild to moderate diffuse facet arthritis most pronounced in the lower lumbar spine. At L1-L2, there is concentric disc bulge and mild facet and ligamentum flavum hypertrophy without neuroforaminal or spinal canal compromise. At L2-L3, there is concentric disc bulge and mild facet and ligamentum flavum hypertrophy resulting in mild bilateral neuroforaminal narrowing andmild narrowing of the spinal canal. At L3-L4, there are similar degenerative changes with mild to moderate bilateral neuroforaminal narrowing and mild narrowing of the spinal canal. At L4-L5, there is concentric disc bulge and retropulsion as discussed above with moderate facet and ligamentum flavum hypertrophy resulting in severe narrowing of the spinal canal with compression of the cauda equinaand moderate bilateral neuroforaminal narrowing. At L5-S1, there is concentric disc bulge and mild facet arthropathy contributing to mild bilateral neuroforaminal narrowing. There is preservation of the posterior paraspinal musculature. There is a hypointense structure in the inferior left kidney likely corresponding to a large kidney stone. Impression: Impression: 1.Multiple osseous metastasis in the lumbar spine and right ilium. The majority of the metastasis appear to have decreased in size and appear less sclerotic, but the large enhancing metastasis in the T12 vertebral body and right 12th rib appears new from 2021. 2.Stable pathologic compression fracture at L4 with retropulsion of the posterior cortex resulting in high-grade spinal canal stenosis with compression of the cauda equina. 3.Moderate lumbar spondylosis with varying degrees of neuroforaminal and spinal canal narrowing as described. Electronically Signed: Homero Perez MD 07/15/2025 12:09 AM EDT Workstation ID: [id number] XR Hips Bilateral With or Without Pelvis 5 View Result Date: 07/15/2025 XR FEMUR 2 VW LEFT XR TIBIA FIBULA 2 VW LEFT XR HIPS BILATERAL W OR WO PELVIS 5 VIEW Date of Exam: 2025 11:03 PM EDT Indication: fall, LLE pain/weakness, eval fxr and metastasis. Comparison: None available. Findings: The bony pelvis appears intact without fracture. There is severe diffuse pelvic and trochanteric enthesopathy. Mild symmetric SI joint degeneration. Pubic symphysis and obturator rings appear intact. There is minimal lumbar spondylosis. There are dilated small bowel loops in the central abdomen measuring up to 3.6 cm diameter. There is also mild colonic fecal retention. There is moderate osteoarthritis of both hips. No evidence of hip fracture or dislocation. The mid and distal left femur appears intact without fracture. There is minimal degenerative change at the knee.The bones are diffusely demineralized. The left tibia and fibula appear intact without fracture or dislocation. Joint spaces at the knee and ankle appear well-maintained. Impression: Impression: 1.No acute osseous abnormality. 2.Moderate osteoarthritis of both hips. 3.Severe diffuse pelvic and trochanteric enthesopathy. 4.Dilated small bowel loops in the central abdomen. Correlate for ileus or obstruction. Electronically Signed: Homero Perez MD 07/15/2025 12:01 AMEDT Workstation ID: [id number] XR Femur 2 View Left Result Date: 07/15/2025 XR FEMUR 2 VW LEFT XR TIBIA FIBULA 2 VW LEFT XR HIPS BILATERAL W OR WO PELVIS 5 VIEW Date of Exam: 2025 11:03 PM EDT Indication: fall, LLE pain/weakness, eval fxr and metastasis. Comparison: None available. Findings: The bony pelvis appears intact without fracture. There is severe diffuse pelvic and trochanteric enthesopathy. Mild symmetric SI joint degeneration. Pubic symphysis and obturator rings appear intact. There is minimal lumbar spondylosis. There are dilated small bowel loops in the central abdomen measuring up to 3.6 cm diameter. There is also mild colonic fecal retention. There is moderate osteoarthritis of both hips. No evidence of hip fracture or dislocation. The mid and distal left femur appears intact without fracture. There is minimal degenerative change at the knee.The bones are diffusely demineralized. The left tibia and fibula appear intact without fracture or dislocation. Joint spaces at the knee and ankle appear well-maintained. Impression: Impression: 1.No acute osseous abnormality. 2.Moderate osteoarthritis of both hips. 3.Severe diffuse pelvic and trochanteric enthesopathy. 4.Dilated small bowel loops in the central abdomen. Correlate for ileus or obstruction. Electronically Signed: Homero Perez MD 07/15/2025 12:01 AMEDT Workstation ID: [id number] XR Tibia Fibula 2 View Left Result Date: 07/15/2025 XR FEMUR 2 VW LEFT XR TIBIA FIBULA 2 VW LEFT XR HIPS BILATERAL W OR WO PELVIS 5 VIEW Date of Exam: 2025 11:03 PM EDT Indication: fall, LLE pain/weakness, eval fxr and metastasis. Comparison: None available. Findings: The bony pelvis appears intact without fracture. There is severe diffuse pelvic and trochanteric enthesopathy. Mild symmetric SI joint degeneration. Pubic symphysis and obturator rings appear intact. There is minimal lumbar spondylosis. There are dilated small bowel loops in the central abdomen measuring up to 3.6 cm diameter. There is also mild colonic fecal retention. There is moderate osteoarthritis of both hips. No evidence of hip fracture or dislocation. The mid and distal left femur appears intact without fracture. There is minimal degenerative change at the knee.The bones are diffusely demineralized. The left tibia and fibula appear intact without fracture or dislocation. Joint spaces at the knee and ankle appear well-maintained. Impression: Impression: 1.No acute osseous abnormality. 2.Moderate osteoarthritis of both hips. 3.Severe diffuse pelvic and trochanteric enthesopathy. 4.Dilated small bowel loops in the central abdomen. Correlate for ileus or obstruction. Electronically Signed: Homero Perez MD 07/15/2025 12:01 AMEDT Workstation ID: [id number] XR Chest 1 View Result Date: 2025 XR CHEST 1 VW Date of Exam: 2025 11:02 PM EDT Indication: fall. Comparison: Chest CT 06/10/2025. Findings: Stable right chest port. There is no pneumothorax, pleural effusion or focal airspace consolidation. Heart size and pulmonary vasculature appear within normal limits. Stable destructive lytic lesion noted at the right second rib. No acute osseous abnormality. Impression: Impression: 1.No acute cardiopulmonary abnormality. 2.Stable destructive lytic lesion at the right second rib. Electronically Signed: Homero Perez MD 2025 11:58 PM EDT WorkstationID: [id number] MRI Brain With & Without Contrast Result Date: 2025 MRI BRAIN W WO CONTRAST Date of Exam: 2025 11:14 PM EDT Indication: fall, LLE pain/weakness, eval fxr and metastasis. Comparison: Head CT 2025. Technique: Routine multiplanar/multisequence sequence images of the brain were obtained before and after the uneventful administration of Vueway. Findings: There is no diffusion restriction to suggest an acute infarct. Midline structures appear intact. Calvarial and superficial soft tissue signal is within normal limits. The temporomandibular joints and parotid glands appear symmetric. Dentition appears unremarkable. There are multiple enlarging intracranial metastasis. This includes a nodular metastasis that appears dural based in the anterior right frontal region on postcontrast 3D T1 axial image 107 measuring 10 mm with an adjacent nodular component laterally measuring 5 mm. Enlarging right frontal periventricular metastasis measuring 6 mm on image 113 of the same series. There is progressive nodular enhancement within the superior left of midline cerebellum on axial image 52 measuring 7 mm diameter. Enlarging right occipital metastasis measuring 13 mm on image 64. Enlarging left cerebellar metastasis measuring up to 18 mm diameter on image 43. Progressive enhancement in the lateral right cerebellum measuring 9 mm on image46. Paramedian right cerebellar metastasis measuring 10 mm on image 32 is also progressive. No definite new metastatic lesions. There is increased edema associated with the left cerebellar lesion resulting in mild mass effect without midline shift or ventricular effacement. There is stable edema signal within the brain matter at the right occipital metastasis. There is otherwise stable mild chronic small vessel ischemic change. There is no herniation. No evidence of acute or chronic intracranial hemorrhage. No diffusion restriction to suggest acute infarct. Orbits are symmetric. There is leftfrontal sinus mucosal disease and there is a left mastoid effusion. The major arterial flow voids appear intact. There is abnormal high T2 signal within the central cervical spinal cord at the level of the dens, which is seen on the last few images. This does raise concern for a more distal cord metastasis or compression. Recommend cervical MRI with IV contrast. Impression: Impression: 1.Multiple enlarging intracranial metastasis. There is increased edema associated with the left cerebellar metastasis resulting in mild mass effect without midline shift or ventricular effacement. 2.Abnormal high T2 signal within the central cervical spinal cord at the levelof the dens. This does raise concern for a more distal cord metastasis or compression. Recommend cervical MRI with IV contrast. 3.Stable mild chronic small vessel ischemic change. 4.Left frontal sinus mucosal disease and left mastoid effusion. Electronically Signed: Homero Perez MD 2025 11:45 PM EDT Workstation ID: [id number] CT Head Without Contrast Result Date: 2025 CT HEAD WO CONTRAST, CT LUMBAR SPINE WO CONTRAST, CT THORACIC SPINE WO CONTRAST, CT CERVICAL SPINE WO CONTRAST Date of Exam: 2025 9:24 PM EDT Indication: fall, LLE pain/weakness, eval fxr and metastasis. Comparison: Brain MRI 06/10/2025, CT chest abdomen pelvis 06/10/2025, CT soft tissue neck 11/27/2024 Technique: Axial CT images were obtained of the head and total spine without contrast administration. Automated exposure control and iterative construction methods were used. Findings: Head CT: Vague hypodensity in the right occipital lobe and left cerebellar hemisphere unchanged from priorMRI. These are in keeping with known intracranial metastases. Negative for large territory infarct,acute intracranial hemorrhage, midline shift or hydrocephalus. Mild periventricular hypodensity favoring sequelae of chronic microvascular ischemic change. No large extra-axial fluid collection. Orbits are symmetric. No obstructive sinus disease. No large mastoid effusion. No aggressive bone lesion or displaced fracture. Cervical spine: Osseous metastases without significant change from prior CT neck comparison. No visualized displaced fracture, vertebral body height loss or malalignment. Minimal degenerative disc disease. Overall mild facet arthropathy. Negative for high-grade central spinalcanal stenosis. Severe right neuroforaminal stenosis C3-C4 similar to prior, other show low-grade stenosis. Similar heterogeneous enlargement of the right thyroid gland outpatient thyroid ultrasound could be considered. Partially imaged right IJ central catheter. No suspicious adenopathy in the neck. Thoracic spine: Heterogeneous mixed lucent and sclerotic metastases without significant change from prior exam. Mild chronic superior endplate height loss of T1 and T10. There is multilevel degenerative change without high-grade central spinal canal stenosis. Severe neuroforaminal stenosis on theleft at T10-T11 and T11-T12 similar to prior exam. Heterogeneous more expansile rib lesions noted most significant involving the second, right posterior ninth and right posterior 12th ribs. Few chronic appearing nondisplaced rib fractures stable from prior pulse representing prior pathologic fractures. Right IJ central catheter terminates near the cavoatrial junction. No suspicious mediastinal orhilar adenopathy. Few pulmonary nodules measuring up to 6 mm left upper lobe image 54 series 2 uncha nged from 06/10/2025 CT comparison. Splenomegaly measuring up to 13 cm in maximum AP dimension without significant change from prior exam. Lumbar spine: Mixed lucent and sclerotic metastases without significant change from prior exam. Suspect old pathologic fracture with bony retropulsion at L4 by up to 4 mm image 33 series 5 unchanged from 06/10/2025 CT comparison. This may result in high- grade central spinal canal stenosis similar to prior exam. No visualized displaced acute fracture, vertebralbody height loss or traumatic malalignment of the lumbar spine. Multilevel degenerative disc disease and facet arthropathy with probably mild to moderate central spinal canal stenosis L2-L3 and L3-L4. Varying degrees of neuroforaminal stenosis up to moderate severity bilaterally L3-L4, severe rightmoderate to severe left L4-L5 and moderate bilateral L5-S1 probably similar to prior comparison. Novisualized retroperitoneal adenopathy. Few nonobstructing renal calculi largest in the left inferior pole measuring up to 1.3 cm unchanged from prior exam. Impression: Impression: 1. 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 No new suspicious pathologic fracture. 2. Similar-appearing probable old pathologic fracture at L4 with bony retropulsion resulting in possible high-gradecentral spinal canal stenosis. This could be assessed by MRI as clinically indicated. 3. Similar hypodense lesions in the right occipital lobe and left cerebellum, in keeping with intracranial metastases noted on prior contrasted MRI comparisons. 4. Stable small pulmonary nodules. Stable splenomegaly. No enlarging adenopathy to suggest disease progression. 5. Other chronic/ancillary findings as above. Electronically Signed: Galen Hawley MD 2025 10:10 PM EDT Workstation ID: [id number] CT Cervical Spine Without Contrast Result Date: 2025 CT HEAD WO CONTRAST, CT LUMBAR SPINE WO CONTRAST, CT THORACIC SPINE WO CONTRAST, CT CERVICAL SPINE WO CONTRAST Date of Exam: 2025 9:24 PM EDT Indication: fall, LLE pain/weakness, eval fxr and metastasis. Comparison: Brain MRI 06/10/2025, CT chest abdomen pelvis 06/10/2025, CT soft tissue neck 11/27/2024 Technique: Axial CT images were obtained of the head and total spine without contrast administration. Automated exposure control and iterative construction methods were used. Findings: Head CT: Vague hypodensity in the right occipital lobe and left cerebellar hemisphere unchanged from priorMRI. These are in keeping with known intracranial metastases. Negative for large territory infarct,acute intracranial hemorrhage, midline shift or hydrocephalus. Mild periventricular hypodensity favoring sequelae of chronic microvascular ischemic change. No large extra-axial fluid collection. Orbits are symmetric. No obstructive sinus disease. No large mastoid effusion. No aggressive bone lesion or displaced fracture. Cervical spine: Osseous metastases without significant change from prior CT neck comparison. No visualized displaced fracture, vertebral body height loss or malalignment. Minimal degenerative disc disease. Overall mild facet arthropathy. Negative for high-grade central spinalcanal stenosis. Severe right neuroforaminal stenosis C3-C4 similar to prior, other show low-grade stenosis. Similar heterogeneous enlargement of the right thyroid gland outpatient thyroid ultrasound could be considered. Partially imaged right IJ central catheter. No suspicious adenopathy in the neck. Thoracic spine: Heterogeneous mixed lucent and sclerotic metastases without significant change from prior exam. Mild chronic superior endplate height loss of T1 and T10. There is multilevel degenerative change without high-grade central spinal canal stenosis. Severe neuroforaminal stenosis on theleft at T10-T11 and T11-T12 similar to prior exam. Heterogeneous more expansile rib lesions noted most significant involving the second, right posterior ninth and right posterior 12th ribs. Few chronic appearing nondisplaced rib fractures stable from prior pulse representing prior pathologic fractures. Right IJ central catheter terminates near the cavoatrial junction. No suspicious mediastinal orhilar adenopathy. Few pulmonary nodules measuring up to 6 mm left upper lobe image 54 series 2 uncha nged from 06/10/2025 CT comparison. Splenomegaly measuring up to 13 cm in maximum AP dimension without significant change from prior exam. Lumbar spine: Mixed lucent and sclerotic metastases without significant change from prior exam. Suspect old pathologic fracture with bony retropulsion at L4 by up to 4 mm image 33 series 5 unchanged from 06/10/2025 CT comparison. This may result in high- grade central spinal canal stenosis similar to prior exam. No visualized displaced acute fracture, vertebralbody height loss or traumatic malalignment of the lumbar spine. Multilevel degenerative disc disease and facet arthropathy with probably mild to moderate central spinal canal stenosis L2-L3 and L3-L4. Varying degrees of neuroforaminal stenosis up to moderate severity bilaterally L3-L4, severe rightmoderate to severe left L4-L5 and moderate bilateral L5-S1 probably similar to prior comparison. Novisualized retroperitoneal adenopathy. Few nonobstructing renal calculi largest in the left inferior pole measuring up to 1.3 cm unchanged from prior exam. Impression: Impression: 1. 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 No new suspicious pathologic fracture. 2. Similar-appearing probable old pathologic fracture at L4 with bony retropulsion resulting in possible high-gradecentral spinal canal stenosis. This could be assessed by MRI as clinically indicated. 3. Similar hypodense lesions in the right occipital lobe and left cerebellum, in keeping with intracranial metastases noted on prior contrasted MRI comparisons. 4. Stable small pulmonary nodules. Stable splenomegaly. No enlarging adenopathy to suggest disease progression. 5. Other chronic/ancillary findings as above. Electronically Signed: Galen Hawley MD 2025 10:10 PM EDT Workstation ID: [id number] CT Thoracic Spine Without Contrast Result Date: 2025 CT HEAD WO CONTRAST, CT LUMBAR SPINE WO CONTRAST, CT THORACIC SPINE WO CONTRAST, CT CERVICAL SPINE WO CONTRAST Date of Exam: 2025 9:24 PM EDT Indication: fall, LLE pain/weakness, eval fxr and metastasis. Comparison: Brain MRI 06/10/2025, CT chest abdomen pelvis 06/10/2025, CT soft tissue neck 11/27/2024 Technique: Axial CT images were obtained of the head and total spine without contrast administration. Automated exposure control and iterative construction methods were used. Findings: Head CT: Vague hypodensity in the right occipital lobe and left cerebellar hemisphere unchanged from priorMRI. These are in keeping with known intracranial metastases. Negative for large territory infarct,acute intracranial hemorrhage, midline shift or hydrocephalus. Mild periventricular hypodensity favoring sequelae of chronic microvascular ischemic change. No large extra-axial fluid collection. Orbits are symmetric. No obstructive sinus disease. No large mastoid effusion. No aggressive bone lesion or displaced fracture. Cervical spine: Osseous metastases without significant change from prior CT neck comparison. No visualized displaced fracture, vertebral body height loss or malalignment. Minimal degenerative disc disease. Overall mild facet arthropathy. Negative for high-grade central spinalcanal stenosis. Severe right neuroforaminal stenosis C3-C4 similar to prior, other show low-grade stenosis. Similar heterogeneous enlargement of the right thyroid gland outpatient thyroid ultrasound could be considered. Partially imaged right IJ central catheter. No suspicious adenopathy in the neck. Thoracic spine: Heterogeneous mixed lucent and sclerotic metastases without significant change from prior exam. Mild chronic superior endplate height loss of T1 and T10. There is multilevel degenerative change without high-grade central spinal canal stenosis. Severe neuroforaminal stenosis on theleft at T10-T11 and T11-T12 similar to prior exam. Heterogeneous more expansile rib lesions noted most significant involving the second, right posterior ninth and right posterior 12th ribs. Few chronic appearing nondisplaced rib fractures stable from prior pulse representing prior pathologic fractures. Right IJ central catheter terminates near the cavoatrial junction. No suspicious mediastinal orhilar adenopathy. Few pulmonary nodules measuring up to 6 mm left upper lobe image 54 series 2 uncha nged from 06/10/2025 CT comparison. Splenomegaly measuring up to 13 cm in maximum AP dimension without significant change from prior exam. Lumbar spine: Mixed lucent and sclerotic metastases without significant change from prior exam. Suspect old pathologic fracture with bony retropulsion at L4 by up to 4 mm image 33 series 5 unchanged from 06/10/2025 CT comparison. This may result in high- grade central spinal canal stenosis similar to prior exam. No visualized displaced acute fracture, vertebralbody height loss or traumatic malalignment of the lumbar spine. Multilevel degenerative disc disease and facet arthropathy with probably mild to moderate central spinal canal stenosis L2-L3 and L3-L4. Varying degrees of neuroforaminal stenosis up to moderate severity bilaterally L3-L4, severe rightmoderate to severe left L4-L5 and moderate bilateral L5-S1 probably similar to prior comparison. Novisualized retroperitoneal adenopathy. Few nonobstructing renal calculi largest in the left inferior pole measuring up to 1.3 cm unchanged from prior exam. Impression: Impression: 1. 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 No new suspicious pathologic fracture. 2. Similar-appearing probable old pathologic fracture at L4 with bony retropulsion resulting in possible high-gradecentral spinal canal stenosis. This could be assessed by MRI as clinically indicated. 3. Similar hypodense lesions in the right occipital lobe and left cerebellum, in keeping with intracranial metastases noted on prior contrasted MRI comparisons. 4. Stable small pulmonary nodules. Stable splenomegaly. No enlarging adenopathy to suggest disease progression. 5. Other chronic/ancillary findings as above. Electronically Signed: Galen Hawley MD 2025 10:10 PM EDT Workstation ID: [id number] CT Lumbar Spine Without Contrast Result Date: 2025 CT HEAD WO CONTRAST, CT LUMBAR SPINE WO CONTRAST, CT THORACIC SPINE WO CONTRAST, CT CERVICAL SPINE WO CONTRAST Date of Exam: 2025 9:24 PM EDT Indication: fall, LLE pain/weakness, eval fxr and metastasis. Comparison: Brain MRI 06/10/2025, CT chest abdomen pelvis 06/10/2025, CT soft tissue neck 11/27/2024 Technique: Axial CT images were obtained of the head and total spine without contrast administration. Automated exposure control and iterative construction methods were used. Findings: Head CT: Vague hypodensity in the right occipital lobe and left cerebellar hemisphere unchanged from priorMRI. These are in keeping with known intracranial metastases. Negative for large territory infarct,acute intracranial hemorrhage, midline shift or hydrocephalus. Mild periventricular hypodensity favoring sequelae of chronic microvascular ischemic change. No large extra-axial fluid collection. Orbits are symmetric. No obstructive sinus disease. No large mastoid effusion. No aggressive bone lesion or displaced fracture. Cervical spine: Osseous metastases without significant change from prior CT neck comparison. No visualized displaced fracture, vertebral body height loss or malalignment. Minimal degenerative disc disease. Overall mild facet arthropathy. Negative for high-grade central spinalcanal stenosis. Severe right neuroforaminal stenosis C3-C4 similar to prior, other show low-grade stenosis. Similar heterogeneous enlargement of the right thyroid gland outpatient thyroid ultrasound could be considered. Partially imaged right IJ central catheter. No suspicious adenopathy in the neck. Thoracic spine: Heterogeneous mixed lucent and sclerotic metastases without significant change from prior exam. Mild chronic superior endplate height loss of T1 and T10. There is multilevel degenerative change without high-grade central spinal canal stenosis. Severe neuroforaminal stenosis on theleft at T10-T11 and T11-T12 similar to prior exam. Heterogeneous more expansile rib lesions noted most significant involving the second, right posterior ninth and right posterior 12th ribs. Few chronic appearing nondisplaced rib fractures stable from prior pulse representing prior pathologic fractures. Right IJ central catheter terminates near the cavoatrial junction. No suspicious mediastinal orhilar adenopathy. Few pulmonary nodules measuring up to 6 mm left upper lobe image 54 series 2 uncha nged from 06/10/2025 CT comparison. Splenomegaly measuring up to 13 cm in maximum AP dimension without significant change from prior exam. Lumbar spine: Mixed lucent and sclerotic metastases without significant change from prior exam. Suspect old pathologic fracture with bony retropulsion at L4 by up to 4 mm image 33 series 5 unchanged from 06/10/2025 CT comparison. This may result in high- grade central spinal canal stenosis similar to prior exam. No visualized displaced acute fracture, vertebralbody height loss or traumatic malalignment of the lumbar spine. Multilevel degenerative disc disease and facet arthropathy with probably mild to moderate central spinal canal stenosis L2-L3 and L3-L4. Varying degrees of neuroforaminal stenosis up to moderate severity bilaterally L3-L4, severe rightmoderate to severe left L4-L5 and moderate bilateral L5-S1 probably similar to prior comparison. Novisualized retroperitoneal adenopathy. Few nonobstructing renal calculi largest in the left inferior pole measuring up to 1.3 cm unchanged from prior exam. Impression: Impression: 1. 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 No new suspicious pathologic fracture. 2. Similar-appearing probable old pathologic fracture at L4 with bony retropulsion resulting in possible high-gradecentral spinal canal stenosis. This could be assessed by MRI as clinically indicated. 3. Similar hypodense lesions in the right occipital lobe and left cerebellum, in keeping with intracranial metastases noted on prior contrasted MRI comparisons. 4. Stable small pulmonary nodules. Stable splenomegaly. No enlarging adenopathy to suggest disease progression. 5. Other chronic/ancillary findings as above. Electronically Signed: Galen Hawley MD 2025 10:10 PM EDT Workstation ID: [id number] Results for orders placed during the hospital encounter of 08/25/24 Adult Transthoracic Echo Complete W/ Cont if Necessary Per Protocol 08/25/2024 4:54 PM Interpretation Summary Left ventricular systolic function is normal. Estimated left ventricular EF = 65% Normal global longitudinal LV strain (GLS) = -19.2% The cardiac valves are anatomically and functionally normal. Assessment & Plan Assessment & Plan Cauda equina syndrome Breast cancer metastasized to bone [place] Anemia, chronic disease Thrombocytopenia Stage 3b chronic kidney disease Cauda equina syndrome - Admit to medicine with telemetry monitoring - Case discussed between ER MD Dr. Colvin and neurosurgery [facility] - Neurology consultation in the morning MRI C-spine pending - Imaging: CT head, CT C-spine, CT C T-spine, CT L-spine, MRI brain, MRI lumbar spine, completed (see report results above) -decadron IV 10mg and then decadron 6mg q6h - Insulin sliding scale glucose checks q6h -Pain management: Robaxin, norco 7.5mg, IV morphine as needed; xanax prn anxiety -NPO status pending NS recommendations -MRI Lumbar spine: Stable pathologic compression fracture at L4 with retropulsion of the posterior cortex resulting in high-grade spinal canal stenosis with compression of the cauda equina. 2. Gait Instability [place] at home -PT/OT evaluation in am - Activity status: Bedrest with assistance overnight fall precautions -Xrays of hips and leg + osteoarthritis of both hips, severe diffuse pelvic and trochanteric enthesopathy. Chronic anemia and thrombocytopenia - H/H 8.10/26 MCV 84 PLT count 90 no signs of gross bleeding - Will continue to monitor - Holding off on anticoagulation for VTE prophylaxis, will use SCDs, possible surgery in am CKD stage IIIb -Current serum creatinine level 1.66 (serum Cr range in 2024 1.06 to 2.00) - Monitor renal indices, serum electrolytes, urine output daily Metastatic breast cancer known history of liver, bone, and brain mets -Patient follows with Dr. Sadler current therapy: neratinib -Consultation to oncology for further evaluation and recommendations -Consult to palliative care for pain management and advance care planning -IV zofran prn nausea and vomiting --CXR 07/14: +Stable destructive lytic lesion at the right second rib -MRI Brain 07/14: + Multiple enlarging intracranial metastasis with increased edema and mild mass effect but no midline shift -MRI L spine:+ large enhancing metastasis in the T12 vertebral body and right 12th rib appears new from 2021. Total time spent: 50 minutes Time spent includes time reviewing chart, [id number] time, counseling patient/family/caregiver, ordering medications/tests/procedures, communicating with other health landcare officer, documenting clinical information in the electronic health record, and coordination of care. VTE Prophylaxis: Mechanical VTE prophylaxis orders are present. CODE STATUS: Code Status and Medical Interventions: CPR (Attempt to Resuscitate); Full Support Ordered at: 07/15/25 0203 Code Status (Patient has no pulse and is not breathing): CPR (Attempt to Resuscitate) Medical Interventions (Patient has pulse or is breathing): Full Support Level Of Support Discussed With: Patient Expected Discharge Expected Discharge Date: 07/17/2025; Expected Discharge Time: Meaghan Guerrier MD 07/15/25 [1] No Known Allergies documented in this encounter Consult Notes * Ella Rondon RN - 07/27/2025 12:25 PM EDTAssociated Order(s): IP CONSULT TO HEEL BREASTER Diabetes Education Patient Name: Peter Parnell Date of : 1960 Admit Date: 2025 Consult for diabetes education received per Insulin Teaching. Chart reviewed. Pt was seen at bedside today. Permission given for visit. Patient's current A1C is 5.83%. She states she has had diabetes on and off for a few years. Home medications consist of metformin which she reports taking for 8 years. Patient is being discharged on decadron. Discussed and taught Ms. Parnell about type 2 diabetes self-management, risk factors, and importanceof blood glucose control to reduce complications. Target blood glucose readings and A1c goals per ADA were reviewed. Reviewed with patient current A1c 5.83% and discussed its significance. Provided verbal and written instructions on ADA survival skill concepts: Meal planning: Discussed pts current eating pattern and potential strategies to help improve it. Suggested ???the plate method?? as a potential healthy eating plan and reviewed this with pt. Reviewed [facility]'s nutrition basics booklet. Patient was aware of most information and appreciated the diabetes friendly recipes. Patient declined the need to speak with RD. Safe medication administration: Reviewed pts current medication regimen. Encouraged pt to take medications as prescribed and contact provider or pharmacist if they are experiencing side effects. Discussed and taught patient about different types of insulin including the onset, peak, and duration of the insulin. Patient is to be discharged on lantus 30 u nightly, humalog 14 u plus moderate dose sliding scale. Stressed that she would have 2 different pens for 2 different insulins. Provided print out with moderate dose sliding scale instructions and reviewed examples of how much and when she would take each medication. Taught patient the correct sites for insulin injections and the importance of rotating insulin injection site. Taught patient the correct storage for opened insulin at room temperature, storage for unopened insulin in the refrigerator, and expiration dates for insulin. Also, we discussed and taught patient the correct disposal of needles used for insulin administration. Demonstrated and taught patient how to use a demo pen with appropriate injection technique on a demo pad. Patient declined return demonstration. She wears contact lenses which she did not have withher- she was wearing her glasses which are not strong enough. She reports having a magnifying glassat home as well as having multiple family members that have diabetes and have administered insulin before that are able to assist if needed. Reinforced that unopened pens need to be refrigerated. Discussed how insulin delivery should be timed with meals to effectively process the glucose entering patient's body. Discussed the importance of taking rapid acting insulin (i.e. Humalog) 5-15 mins prior to the start of a meal. Reviewed long acting insulin onset and peak times with patient. Reviewed the importance of insulin planning at restaurants- including waiting till food is in front of patient prior to administering insulin injection due to potential delays in food delivery. Monitoring (timing and technique): Encouraged pt to monitor blood sugar at home 4 times per day andto call PCP if blood sugar is trending high. Discussed benefits of SMBG/CGMS to help guide pt and provider decision making. Encouraged to keep record of blood glucose readings to take to follow up appointment with PCP. Prevention and treatment of hypoglycemia and hyperglycemia: Signs, symptoms, and treatment of hypoglycemia and hyperglycemia discussed with pt. Reviewed prevention strategies such as consistent eating pattern and taking medications as directed. Pt is able to teach back appropriate treatment of hypoglycemia using the rule of 15s after receiving instruction. Sick day management: Reviewed general sick day guidelines with pt, including drinking plenty of water, keeping simple carbs handy such as jell-o or popsicles, checking blood glucose more often (every2-4 hours or as directed by provider), and if/when ketone testing is appropriate. Encouraged pt to make a sick-day kit at home. Physical activity: Reviewed benefits of physical activity for diabetes management and overall health. Encouraged pt to begin in 10 min increments to build up to recommended 150 minute per week after speaking with doctor about which activities may be right for them. Follow-up care: Reviewed importance of ongoing follow-up with provider. Reviewed importance of annual physical exams, annual eye exams, regular dental exams, daily foot examination, and encouraged patient to discuss immunization needs with provider. Pt encouraged to attend scheduled appointments. Provided information about outpatient diabetes education classes at [facility]. Provided patient with copy of [facility]'s type of insulin , steroids and diabetes , and BD's 4mm pen needle . All questions and concerns were addressed. Thank you for this consult. Total time spent reviewing chart, preparing education/materials, providing education at bedside, and coordinating care approx 60 minutes. 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 Teary as she talked about her family who are flying in this weekend. I have to be strong forthem. We explored how it might be ok/helpful for them to be strong for her as well. She appreciated empathic listening and prayer. * Karen Ortiz MD - 07/15/2025 4:24 PM EDTAssociated Order(s): IP CONSULT TO PALLIATIVE CARE MD Palliative Care Initial Consult Attending Physician: Everton Lassiter MD Referring Provider: Meaghan Guerrier Reason for Referral: assistance with clarification of goals of care, pain, and psychosocial support Code Status: Code Status and Medical Interventions: CPR (Attempt to Resuscitate); Full Support Ordered at: 07/15/25 0203 Code Status (Patient has no pulse and is not breathing): CPR (Attempt to Resuscitate) Medical Interventions (Patient has pulse or is breathing): Full Support Level Of Support Discussed With: Patient Advanced Directives: Advance Directive Status: Patient does not have advance directive Family/Support: spouse Goals of Care: Goals of Care/Treatment Preferences: Treat - I have a lot of living to do HPI: 65 yo female with known widely metastatic breast CA presented to ED with increasing weakness and numbness especially LLE with increasing falls. Last few weeks has increased frequency of voiding. Imaging with significant spinal and intracranial mets. Steroids initiated. Pt reports + response alreadywith no more numbness and ability to LLE. Yesterday had to life LLE with hands to move. Stood with PT. Had RN bladder scan post void and initiallly 446 ml. Got to [facility] with improved emptying but stillwith residual of 172. ROS: Numbness and weakness lLE - improving with steroids Denied pain when seen No SOA + fatigue Past Medical History: Diagnosis Date Back problem Bone cancer Mets Breast cancer Diabetes mellitus Drug therapy 12/2013 History of radiation therapy 01/19/2022 L3-L5, sacrum History of radiation therapy 09/26/2022 Whole brain radiotherapy Hx of radiation therapy 04/2014 Kidney stone Liver carcinoma Mets Malignant neoplasm of upper-outer quadrant of left breast in female, estrogen receptor positive 08/22/2016 Neuropathy Radiation Past Surgical History: Procedure Laterality Date BREAST BIOPSY Left BREAST LUMPECTOMY Left 11/2013 CATARACT EXTRACTION Right 02/11/2024 HEAD/NECK LESION/CYST EXCISION Right 12/02/2020 Procedure: WIDE EXCISION MALIGNANT LESION OF SCALP; Surgeon: Evens Wagner MD; Location: [facility]; Service: General; Laterality: Right; LIVER BIOPSY 09/22/2019 OOPHORECTOMY PORTACATH PLACEMENT Right 2019 SKIN FULL THICKNESS GRAFT Right 12/02/2020 Procedure: FULL THICKNESS SKIN GRAFT, RESECTION OF TUMOR OF RIGHT NECK; Surgeon: Evens Wagner MD; Location: [facility]; Service: General; Laterality: Right; Social History[1] Family History Problem Relation Age of Onset Diabetes Mother Cancer Mother Lung cancer Mother No Known Problems Father Cancer Sister Diabetes Sister Kidney cancer Sister Breast cancer Neg Hx Endometrial cancer Neg Hx Ovarian cancer Neg Hx No Known Allergies Current Facility-Administered Medications: ALPRAZolam (XANAX) tablet 0.5 mg, 0.5 mg, Oral, Q8H PRN, Meaghan Guerrier MD, 0.5 mg at 07/15/25 0317 aluminum-magnesium hydroxide-simethicone (MAALOX MAX) 400-400-40 MG/5ML suspension 15 mL, 15 mL, Oral, Q6H PRN, Meaghan Guerrier MD sennosides-docusate (PERICOLACE) 8.6-50 MG per tablet 2 tablet, 2 tablet, Oral, BID PRN AND polyethylene glycol (MIRALAX) packet 17 g, 17 g, Oral, Daily PRN AND bisacodyl (DULCOLAX) EC tablet5 mg, 5 mg, Oral, Daily PRN AND bisacodyl (DULCOLAX) suppository 10 mg, 10 mg, Rectal, Daily PRN, Meaghan Guerrier MD Calcium Replacement - Follow Nurse / BPA Driven Protocol, , Not Applicable, PRN, Meaghan Guerrier MD dexAMETHasone (DECADRON) injection 6 mg, 6 mg, Intravenous, Q6H, Meaghan Guerrier MD, 6 mg at 07/15/25 1319 dextrose (D50W) (25 g/50 mL) IV injection 25 g, 25 g, Intravenous, Q15 Min PRN, Meaghan Guerrier MD dextrose (GLUTOSE) oral gel 15 g, 15 g, Oral, Q15 Min PRN, Meaghan Guerrier MD famotidine (PEPCID) tablet 40 mg, 40 mg, Oral, Daily, Meaghan Guerrier MD, 40 mg at 07/15/25 0834 glucagon (GLUCAGEN) injection 1 mg, 1 mg, Intramuscular, Q15 Min PRN, Meaghan Guerrier MD HYDROcodone-acetaminophen (NORCO) 7.5-325 MG per tablet 1 tablet, 1 tablet, Oral, Q6H PRN, Meaghan Guerrier MD Insulin Lispro (humaLOG) injection 2-7 Units, 2-7 Units, Subcutaneous, 4x Daily AC & at Bedtime, Everton Lassiter MD, 2 Units at 07/15/25 1202 Magnesium Cardiology Dose Replacement - Follow Nurse / BPA Driven Protocol, , Not Applicable, PRN, Meaghan Guerrier MD magnesium sulfate 2g/50 mL (PREMIX) infusion, 2 g, Intravenous, Q2H, Everton Lassiter MD, 2 g at 07/15/25 1701 morphine injection 2 mg, 2 mg, Intravenous, Q4H PRN AND naloxone (NARCAN) injection 0.4 mg, 0.4mg, Intravenous, Q5 Min PRN, Meaghan Guerrier MD nitroglycerin (NITROSTAT) SL tablet 0.4 mg, 0.4 mg, Sublingual, Q5 Min PRN, Meaghan Guerrier MD ondansetron (ZOFRAN) injection 4 mg, 4 mg, Intravenous, Q6H PRN, Meaghan Guerrier MD Phosphorus Replacement - Follow Nurse / BPA Driven Protocol, , Not Applicable, PRNJason Jennifer, MD Potassium Replacement - Follow Nurse / BPA Driven Protocol, , Not Applicable, PRN, Meaghan Guerrier MD pregabalin (LYRICA) capsule 75 mg, 75 mg, Oral, Daily, Meaghan Guerrier MD, 75 mg at 07/15/25 0834 sodium chloride 0.9 % flush 10 mL, 10 mL, Intravenous, Q12H, Meaghan Guerrier MD sodium chloride 0.9 % flush 10 mL, 10 mL, Intravenous, PRN, Meaghan Guerrier MD sodium chloride 0.9 % infusion 40 mL, 40 mL, Intravenous, PRN, Meaghan Guerrier MD sodium chloride 0.9 % infusion, 75 mL/hr, Intravenous, Continuous, Meaghan Guerrier MD, Last Rate:75 mL/hr at 07/15/25 1329, 75 mL/hr at 07/15/25 1329 Palliative Performance Scale Score: 40 BP 111/61 (BP Location: Right arm, Patient Position: Lying) Pulse 100 Temp 98.4 ??F (36.9 ??C)(Oral) Resp 18 Ht 170.2 cm (67 ) Wt 72.1 kg (159 lb) SpO2 99% BMI 24.90 kg/m?? Intake/Output Summary (Last 24 hours) at 07/15/2025 1625 Last data filed at 07/15/2025 1600 Gross per 24 hour Intake 200 ml Output 1100 ml Net -900 ml Physical Exam: General Appearance: Alert, cooperative, NAD HEENT: NC/AT, EOMI, anicteric, MMM, face relaxed Neck: supple, trachea midline, no JVD Lungs: CTA bilat, diminished in bases; respirations regular, even and unlabored Heart: RRR, normal S1 and S2, no M/R/G Abdomen: Normal bowel sounds, soft, nontender, nondistended G/U: Deferred MSK/Extremities: No clubbing , cyanosis or edema, No wasting Pulses: Pulses palpable and equal bilaterally Skin: Warm, dry, no mottling Neurologic: A/Ox3, cooperative, moves extremities x 4, no tremor, nl tone Psych: Calm, appropriate Labs: Results from last 7 days Lab Units 07/15/25 0918 WBC 10*3/mm3 2.72* HEMOGLOBIN g/dL 8.5* HEMATOCRIT % 27.9* PLATELETS 10*3/mm3 69* Results from last 7 days Lab Units 07/15/25 0918 SODIUM mmol/L 139 POTASSIUM mmol/L 4.0 CHLORIDE mmol/L 104 CO2 mmol/L 23.3 BUN mg/dL 25.7* CREATININE mg/dL 1.47* CALCIUM mg/dL 9.6 BILIRUBIN mg/dL 0.4 ALK PHOS U/L 144* ALT (SGPT) U/L 27 AST (SGOT) U/L 43* GLUCOSE mg/dL 182* Imaging Results (Last 72 Hours) Procedure Component Value Units Date/Time MRI Cervical Spine With & Without Contrast [[id number]] Collected: 07/15/25 143 Updated: 07/15/251447 Narrative: MRI CERVICAL SPINE W WO CONTRAST Date of Exam: 07/15/2025 12:15 PM EDT Indication: eval cord compression. Breast cancer Comparison: CT cervical spine from 2025 and MRI cervical spine from December 18, 2019 Technique: Routine multiplanar/multisequence sequence images of the cervical spine were obtained before and after the uneventful administration of Vueway. Findings: The alignment is anatomic. The craniocervical junction appears intact. Several sclerotic osseous metastasis are present, better characterized on recent prior CT. The cervical vertebral body heights appear normal. There is a mild chronic superior endplate compression deformity at T1. There is disc desiccation at all levels. The partially visualized posterior fossa contents are unremarkable. There is diffuse T2 hyperintensity within the spinal cord extending from the level of C1 inferiorlythrough the visualized upper thoracic spine. In addition, there is a 1.2 x 0.8 x 2.5 cm (TR X AP X CC) heterogeneously enhancing mass within the spinal canal at the C6-7 level, which appears to be intramedullary. These are new findings from prior MRI from 2021. C2-3: Small central disc protrusion. Mild bilateral facet arthropathy. No spinal canal stenosis. Noneural foraminal stenosis. C3-4: Moderate central disc protrusion. Moderate bilateral facet arthropathy. Moderate right uncovertebral hypertrophy. Mild spinal canal stenosis. Severe right neural foraminal stenosis. C4-5: Mild disc osteophyte complex with superimposed small central disc protrusion. Moderate bilateral facet arthropathy. Moderate right and mild left uncovertebral hypertrophy. Mild spinal canal stenosis. Mild right and moderate left neural foraminal stenosis. C5-6: Moderate central disc protrusion. Moderate bilateral facet arthropathy. Mild bilateral uncovertebral hypertrophy. Moderate spinal canal stenosis. Mild right neural foraminal stenosis. C6-7: Mild disc bulge with superimposed tiny central disc protrusion. Moderate bilateral facet arthropathy. Mild right and moderate left uncovertebral hypertrophy. Mild spinal canal stenosis. Mild bilateral neural foraminal stenosis. C7-T1: No spinal canal or neural foraminal stenosis. Impression: Impression: 1.2.5 cm heterogeneously enhancing mass within spinal canal at the C6-7 level, which appears to be intramedullary. There is diffuse T2 hyperintensity within the spinal cord extending from the level of C1 inferiorly through the visualized upper thoracic spine. These are new findings from prior MRI from 2021. Findings are concerning for metastasis, with primary spinal cord neoplasm felt less likely. 2.Several sclerotic osseous metastasis, better characterized on recent prior CT. 3.Moderate multilevel degenerative changes of cervical spine as described above. Electronically Signed: Gabino Peace MD 07/15/2025 2:45 PM EDT Workstation ID: [id number] MRI Lumbar Spine With & Without Contrast [[id number]] Collected: 07/15/25 0003 Updated: 07/15/2511 Narrative: MRI LUMBAR SPINE W WO CONTRAST Date of Exam: 2025 11:15 PM EDT Indication: eval cauda equina, mets, fxr. Comparison: CT lumbar 2025 and MR lumbar spine 12/17/2021. Technique: Routine multiplanar/multisequence sequence images of the lumbar spine were obtained before and after the uneventful administration of Vueway. Findings: There is redemonstration of an avidly enhancing metastasis occupying the right and posterior aspects of the T12 vertebral body extending into the right 12th rib and transverse process with associatedbone destruction and soft tissue mass. There are multiple additional lumbar spinal metastasis that appear mixed signal intensity without significant enhancement. Metastatic lesions are noted at L3, L4, L5 and S1. There is stable posterior inferior endplate compression fracture at L4, which appears pathologic and is associated with an intravertebral disc herniation. This results in retropulsion ofthe posterior cortex up to 6 mm and results in high-grade spinal canal stenosis with compression ofthe cauda equina. There is an additional metastasis in the right ilium. Compared with the MRI date12/17/2021, the majority of the metastasis appear to have decreased in size and appear less sclerotic, but the large enhancing metastasis in the T12 vertebral body and right 12th rib appears new from 2021. There is no new fracture. There is mild to moderate diffuse disc space narrowing and mild to mo derate diffuse facet arthritis most pronounced in the lower lumbar spine. At L1- L2, there is concentric disc bulge and mild facet and ligamentum flavum hypertrophy without neuroforaminal or spinal canal compromise. At L2-L3, there is concentric disc bulge and mild facet and ligamentum flavum hypertrophy resulting in mild bilateral neuroforaminal narrowing and mild narrowing of the spinal canal. At L3-L4, there are similar degenerative changes with mild to moderate bilateral neuroforaminal narrowing and mild narrowing of the spinal canal. At L4-L5, there is concentric disc bulge and retropulsion as discussed above with moderate facet and ligamentum flavum hypertrophy resulting in severe narrowing of the spinal canal with compression of the cauda equina and moderate bilateral neuroforaminal narrowing. At L5-S1, there is concentric disc bulge andmild facet arthropathy contributing to mild bilateral neuroforaminal narrowing. There is preservation of the posterior paraspinal musculature. There is ahypointense structure in the inferior left kidney likely corresponding to a large kidney stone. Impression: Impression: 1.Multiple osseous metastasis in the lumbar spine and right ilium. The majority of the metastasis appear to have decreased in size and appear less sclerotic, but the large enhancing metastasis in theT12 vertebral body and right 12th rib appears new from 2021. 2.Stable pathologic compression fracture at L4 with retropulsion of the posterior cortex resulting in high-grade spinal canal stenosis with compression of the cauda equina. 3.Moderate lumbar spondylosis with varying degrees of neuroforaminal and spinal canal narrowing as described. Electronically Signed: Homero Perez MD 07/15/2025 12:09 AM EDT Workstation ID: [id number] XR Hips Bilateral With or Without Pelvis 5 View [[id number]] Collected: 07/14/25 2359 Updated: 07/15/25 0004 Narrative: XR FEMUR 2 VW LEFT XR TIBIA FIBULA 2 VW LEFT XR HIPS BILATERAL W OR WO PELVIS 5 VIEW Date of Exam: 2025 11:03 PM EDT Indication: fall, LLE pain/weakness, eval fxr and metastasis. Comparison: None available. Findings: The bony pelvis appears intact without fracture. There is severe diffuse pelvic and trochanteric enthesopathy. Mild symmetric SI joint degeneration. Pubic symphysis and obturator rings appear intact.There is minimal lumbar spondylosis. There are dilated small bowel loops in the central abdomen measuring up to 3.6 cm diameter. There is also mild colonic fecal retention. There is moderate osteoarthritis of both hips. No evidence of hip fracture or dislocation. The mid and distal left femur appears intact without fracture. There is minimal degenerative change at the knee. The bones are diffusely demineralized. The left tibia and fibula appear intact without fracture or dislocation. Joint spaces at the knee and ankle appear well-maintained. Impression: Impression: 1.No acute osseous abnormality. 2.Moderate osteoarthritis of both hips. 3.Severe diffuse pelvic and trochanteric enthesopathy. 4.Dilated small bowel loops in the central abdomen. Correlate for ileus or obstruction. Electronically Signed: Homero Perez MD 07/15/2025 12:01 AM EDT Workstation ID: [id number] XR Femur 2 View Left [[id number]] Collected: 07/14/25 2359 Updated: 07/15/25 0004 Narrative: XR FEMUR 2 VW LEFT XR TIBIA FIBULA 2 VW LEFT XR HIPS BILATERAL W OR WO PELVIS 5 VIEW Date of Exam: 2025 11:03 PM EDT Indication: fall, LLE pain/weakness, eval fxr and metastasis. Comparison: None available. Findings: The bony pelvis appears intact without fracture. There is severe diffuse pelvic and trochanteric enthesopathy. Mild symmetric SI joint degeneration. Pubic symphysis and obturator rings appear intact.There is minimal lumbar spondylosis. There are dilated small bowel loops in the central abdomen measuring up to 3.6 cm diameter. There is also mild colonic fecal retention. There is moderate osteoarthritis of both hips. No evidence of hip fracture or dislocation. The mid and distal left femur appears intact without fracture. There is minimal degenerative change at the knee. The bones are diffusely demineralized. The left tibia and fibula appear intact without fracture or dislocation. Joint spaces at the knee and ankle appear well-maintained. Impression: Impression: 1.No acute osseous abnormality. 2.Moderate osteoarthritis of both hips. 3.Severe diffuse pelvic and trochanteric enthesopathy. 4.Dilated small bowel loops in the central abdomen. Correlate for ileus or obstruction. Electronically Signed: Homero Perez MD 07/15/2025 12:01 AM EDT Workstation ID: [id number] XR Tibia Fibula 2 View Left [[id number]] Collected: 07/14/252358 Updated: 07/15/25 0004 Narrative: XR FEMUR 2 VW LEFT XR TIBIA FIBULA 2 VW LEFT XR HIPS BILATERAL W OR WO PELVIS 5 VIEW Date of Exam: 2025 11:03 PM EDT Indication: fall, LLE pain/weakness, eval fxr and metastasis. Comparison: None available. Findings: The bony pelvis appears intact without fracture. There is severe diffuse pelvic and trochanteric enthesopathy. Mild symmetric SI joint degeneration. Pubic symphysis and obturator rings appear intact.There is minimal lumbar spondylosis. There are dilated small bowel loops in the central abdomen measuring up to 3.6 cm diameter. There is also mild colonic fecal retention. There is moderate osteoarthritis of both hips. No evidence of hip fracture or dislocation. The mid and distal left femur appears intact without fracture. There is minimal degenerative change at the knee. The bones are diffusely demineralized. The left tibia and fibula appear intact without fracture or dislocation. Joint spaces at the knee and ankle appear well-maintained. Impression: Impression: 1.No acute osseous abnormality. 2.Moderate osteoarthritis of both hips. 3.Severe diffuse pelvic and trochanteric enthesopathy. 4.Dilated small bowel loops in the central abdomen. Correlate for ileus or obstruction. Electronically Signed: Homero Perez MD 07/15/2025 12:01 AM EDT Workstation ID: [id number] XR Chest 1 View [[id number]] Collected: 07/14/252357 Updated: 07/15/25 0002 Narrative: XR CHEST 1 VW Date of Exam: 2025 11:02 PM EDT Indication: fall. Comparison: Chest CT 06/10/2025. Findings: Stable right chest port. There is no pneumothorax, pleural effusion or focal airspace consolidation. Heart size and pulmonary vasculature appear within normal limits. Stable destructive lytic lesion noted at the right second rib. No acute osseous abnormality. Impression: Impression: 1.No acute cardiopulmonary abnormality. 2.Stable destructive lytic lesion at the right second rib. Electronically Signed: Homero Perez MD 2025 11:58 PM EDT Workstation ID: [id number] MRI Brain With & Without Contrast [[id number]] Collected: 07/14/252334 Updated: 07/14/25 2348 Narrative: MRI BRAIN W WO CONTRAST Date of Exam: 2025 11:14 PM EDT Indication: fall, LLE pain/weakness, eval fxr and metastasis. Comparison: Head CT 2025. Technique: Routine multiplanar/multisequence sequence images of the brain were obtained before and after the uneventful administration of Vueway. Findings: There is no diffusion restriction to suggest an acute infarct. Midline structures appear intact. Calvarial and superficial soft tissue signal is within normal limits. The temporomandibular joints andparotid glands appear symmetric. Dentition appears unremarkable. There are multiple enlarging intracranial metastasis. This includes a nodular metastasis that appears dural based in the anterior right frontal region on postcontrast 3D T1 axial image 107 measuring 10 mm with an adjacent nodular component laterally measuring 5 mm. Enlarging right frontal periventricular metastasis measuring 6 mm on image 113 of the same series. There is progressive nodular enhancement within the superior left of midline cerebellum on axial image 52 measuring 7 mm diameter. Enlarging right occipital metastasis measuring 13 mm on image 64. Enlarging left cerebellar metastasis measuring up to 18 mm diameter on image 43. Progressive enhancement in the lateral right cerebellum m easuring 9 mm on image 46. Paramedian right cerebellar metastasis measuring 10 mm on image 32 is also progressive. No definite new metastatic lesions. There is increased edema associated with the left cerebellar lesion resulting in mild mass effect without midline shift or ventricular effacement. There is stable edema signal within the brain matter at the right occipital metastasis. There is otherwise stable mild chronic small vessel ischemic change. There is no herniation. No evidence of acuteor chronic intracranial hemorrhage. No diffusion restriction to suggest acute infarct. Orbits are symmetric. There is left frontal sinus mucosal disease and there is a left mastoid effusion. The major arterial flow voids appear intact. There is abnormal high T2 signal within the central cervical spinal cord at the level of the dens, which is seen on the last few images. This does raise concern for a more distal cord metastasis or compression. Recommend cervical MRI with IV contrast. Impression: Impression: 1.Multiple enlarging intracranial metastasis. There is increased edema associated with the left cerebellar metastasis resulting in mild mass effect without midline shift or ventricular effacement. 2.Abnormal high T2 signal within the central cervical spinal cord at the level of the dens. This does raise concern for a more distal cord metastasis or compression. Recommend cervical MRI with IV contrast. 3.Stable mild chronic small vessel ischemic change. 4.Left frontal sinus mucosal disease and left mastoid effusion. Electronically Signed: Homero Perez MD 2025 11:45 PM EDT Workstation ID: [id number] CT Head Without Contrast [[id number]] Collected: 07/14/252153 Updated: 07/14/252212 Narrative: CT HEAD WO CONTRAST, CT LUMBAR SPINE WO CONTRAST, CT THORACIC SPINE WO CONTRAST, CT CERVICAL SPINE WO CONTRAST Date of Exam: 2025 9:24 PM EDT Indication: fall, LLE pain/weakness, eval fxr and metastasis. Comparison: Brain MRI 06/10/2025, CT chest abdomen pelvis 06/10/2025, CT soft tissue neck 11/27/2024 Technique: Axial CT images were obtained of the head and total spine without contrast administration. Automated exposure control and iterative construction methods were used. Findings: Head CT: Vague hypodensity in the right occipital lobe and left cerebellar hemisphere unchanged from prior MRI. These are in keeping with known intracranial metastases. Negative for large territory infarct, acute intracranial hemorrhage, midline shift or hydrocephalus. Mild periventricular hypodensity favoring sequelae of chronic microvascular ischemicchange. No large extra-axial fluid collection. Orbits are symmetric. No obstructive sinus disease. No large mastoid effusion. No aggressive bone lesion or displaced fracture. Cervical spine: Osseous metastases without significant change from prior CT neck comparison. No visualized displaced fracture, vertebral body height loss or malalignment. Minimal degenerative disc disease. Overall mild facet arthropathy. Negative for high-grade central spinal canal stenosis. Severeright neuroforaminal stenosis C3-C4 similar to prior, other show low-grade stenosis. Similar heterogeneous enlargement of the right thyroid gland outpatient thyroid ultrasound could be considered. Partially imaged right IJ central catheter. No suspicious adenopathy in the neck. Thoracic spine: Heterogeneous mixed lucent and sclerotic metastases without significant change fromprior exam. Mild chronic superior endplate height loss of T1 and T10. There is multilevel degenerative change without high-grade central spinal canal stenosis. Severe neuroforaminal stenosis on the left at T10-T11 and T11-T12 similar to prior exam. Heterogeneous more expansile rib lesions noted most significant involving the second, right posterior ninth and right posterior 12th ribs. Few chronicappearing nondisplaced rib fractures stable from prior pulse representing prior pathologic fractures. Right IJ central catheter terminates near the cavoatrial junction. No suspicious mediastinal or hilar adenopathy. Few pulmonary nodules measuring up to 6 mm left upper lobe image 54 series 2 unchanged from 06/10/[address]25 CT comparison. Splenomegaly measuring up to 13 cm in maximum AP dimension withoutsignificant change from prior exam. Lumbar spine: Mixed lucent and sclerotic metastases without significant change from prior exam. Suspect old pathologic fracture with bony retropulsion at L4 by up to 4 mm image 33 series 5 unchanged from 06/10/2025 CT comparison. This may result in high-grade central spinal canal stenosis similar toprior exam. No visualized displaced acute fracture, vertebral body height loss or traumatic malalignment of the lumbar spine. Multilevel degenerative disc disease and facet arthropathy with probably mild to moderate central spinal canal stenosis L2-L3 and L3-L4. Varying degrees of neuroforaminal stenosis up to moderate severity bilaterally L3-L4, severe right moderate to severe left L4-L5 and moderate bilateral L5-S1 probably similar to prior comparison. No visualized retroperitoneal adenopathy. Few nonobstructing renal calculi largest in the left inferior pole measuring up to 1.3 cm unchanged from prior exam. Impression: Impression: 1. Grossly stable mixed lucent and sclerotic osseous metastases detailed above compared to prior CTimaging comparisons. No new suspicious pathologic fracture. 2. Similar-appearing probable old pathologic fracture at L4 with bony retropulsion resulting in possible high-grade central spinal canal stenosis. This could be assessed by MRI as clinically indicated. 3. Similar hypodense lesions in the right occipital lobe and left cerebellum, in keeping with intracranial metastases noted on prior contrasted MRI comparisons. 4. Stable small pulmonary nodules. Stable splenomegaly. No enlarging adenopathy to suggest disease progression. 5. Other chronic/ancillary findings as above. Electronically Signed: Galen Hawley MD 2025 10:10 PM EDT Workstation ID: [id number] CT Cervical Spine Without Contrast [[id number]] Collected: 07/14/252153 Updated: 07/14/252212 Narrative: CT HEAD WO CONTRAST, CT LUMBAR SPINE WO CONTRAST, CT THORACIC SPINE WO CONTRAST, CT CERVICAL SPINE WO CONTRAST Date of Exam: 2025 9:24 PM EDT Indication: fall, LLE pain/weakness, eval fxr and metastasis. Comparison: Brain MRI 06/10/2025, CT chest abdomen pelvis 06/10/2025, CT soft tissue neck 11/27/2024 Technique: Axial CT images were obtained of the head and total spine without contrast administration. Automated exposure control and iterative construction methods were used. Findings: Head CT: Vague hypodensity in the right occipital lobe and left cerebellar hemisphere unchanged from prior MRI. These are in keeping with known intracranial metastases. Negative for large territory infarct, acute intracranial hemorrhage, midline shift or hydrocephalus. Mild periventricular hypodensity favoring sequelae of chronic microvascular ischemicchange. No large extra-axial fluid collection. Orbits are symmetric. No obstructive sinus disease. No large mastoid effusion. No aggressive bone lesion or displaced fracture. Cervical spine: Osseous metastases without significant change from prior CT neck comparison. No visualized displaced fracture, vertebral body height loss or malalignment. Minimal degenerative disc disease. Overall mild facet arthropathy. Negative for high-grade central spinal canal stenosis. Severeright neuroforaminal stenosis C3-C4 similar to prior, other show low-grade stenosis. Similar heterogeneous enlargement of the right thyroid gland outpatient thyroid ultrasound could be considered. Partially imaged right IJ central catheter. No suspicious adenopathy in the neck. Thoracic spine: Heterogeneous mixed lucent and sclerotic metastases without significant change fromprior exam. Mild chronic superior endplate height loss of T1 and T10. There is multilevel degenerative change without high-grade central spinal canal stenosis. Severe neuroforaminal stenosis on the left at T10-T11 and T11-T12 similar to prior exam. Heterogeneous more expansile rib lesions noted most significant involving the second, right posterior ninth and right posterior 12th ribs. Few chronicappearing nondisplaced rib fractures stable from prior pulse representing prior pathologic fractures. Right IJ central catheter terminates near the cavoatrial junction. No suspicious mediastinal or hilar adenopathy. Few pulmonary nodules measuring up to 6 mm left upper lobe image 54 series 2 unchanged from 06/10/2025 CT comparison. Splenomegaly measuring up to 13 cm in maximum AP dimension withoutsignificant change from prior exam. Lumbar spine: Mixed lucent and sclerotic metastases without significant change from prior exam. Suspect old pathologic fracture with bony retropulsion at L4 by up to 4 mm image 33 series 5 unchanged from 06/10/2025 CT comparison. This may result in high-grade central spinal canal stenosis similar toprior exam. No visualized displaced acute fracture, vertebral body height loss or traumatic malalignment of the lumbar spine. Multilevel degenerative disc disease and facet arthropathy with probably mild to moderate central spinal canal stenosis L2-L3 and L3-L4. Varying degrees of neuroforaminal stenosis up to moderate severity bilaterally L3-L4, severe right moderate to severe left L4-L5 and moderate bilateral L5-S1 probably similar to prior comparison. No visualized retroperitoneal adenopathy. Few nonobstructing renal calculi largest in the left inferior pole measuring up to 1.3 cm unchanged from prior exam. Impression: Impression: 1. Grossly stable mixed lucent and sclerotic osseous metastases detailed above compared to prior CTimaging comparisons. No new suspicious pathologic fracture. 2. Similar-appearing probable old pathologic fracture at L4 with bony retropulsion resulting in possible high-grade central spinal canal stenosis. This could be assessed by MRI as clinically indicated. 3. Similar hypodense lesions in the right occipital lobe and left cerebellum, in keeping with intracranial metastases noted on prior contrasted MRI comparisons. 4. Stable small pulmonary nodules. Stable splenomegaly. No enlarging adenopathy to suggest disease progression. 5. Other chronic/ancillary findings as above. Electronically Signed: Galen Hawley MD 2025 10:10 PM EDT Workstation ID: [id number] CT Thoracic Spine Without Contrast [[id number]] Collected: 07/14/252153 Updated: 07/14/252212 Narrative: CT HEAD WO CONTRAST, CT LUMBAR SPINE WO CONTRAST, CT THORACIC SPINE WO CONTRAST, CT CERVICAL SPINE WO CONTRAST Date of Exam: 2025 9:24 PM EDT Indication: fall, LLE pain/weakness, eval fxr and metastasis. Comparison: Brain MRI 06/10/2025, CT chest abdomen pelvis 06/10/2025, CT soft tissue neck 11/27/2024 Technique: Axial CT images were obtained of the head and total spine without contrast administration. Automated exposure control and iterative construction methods were used. Findings: Head CT: Vague hypodensity in the right occipital lobe and left cerebellar hemisphere unchanged from prior MRI. These are in keeping with known intracranial metastases. Negative for large territory infarct, acute intracranial hemorrhage, midline shift or hydrocephalus. Mild periventricular hypodensity favoring sequelae of chronic microvascular ischemicchange. No large extra-axial fluid collection. Orbits are symmetric. No obstructive sinus disease. No large mastoid effusion. No aggressive bone lesion or displaced fracture. Cervical spine: Osseous metastases without significant change from prior CT neck comparison. No visualized displaced fracture, vertebral body height loss or malalignment. Minimal degenerative disc disease. Overall mild facet arthropathy. Negative for high-grade central spinal canal stenosis. Severeright neuroforaminal stenosis C3-C4 similar to prior, other show low-grade stenosis. Similar heterogeneous enlargement of the right thyroid gland outpatient thyroid ultrasound could be considered. Partially imaged right IJ central catheter. No suspicious adenopathy in the neck. Thoracic spine: Heterogeneous mixed lucent and sclerotic metastases without significant change fromprior exam. Mild chronic superior endplate height loss of T1 and T10. There is multilevel degenerative change without high-grade central spinal canal stenosis. Severe neuroforaminal stenosis on the left at T10-T11 and T11-T12 similar to prior exam. Heterogeneous more expansile rib lesions noted most significant involving the second, right posterior ninth and right posterior 12th ribs. Few chronicappearing nondisplaced rib fractures stable from prior pulse representing prior pathologic fractures. Right IJ central catheter terminates near the cavoatrial junction. No suspicious mediastinal or hilar adenopathy. Few pulmonary nodules measuring up to 6 mm left upper lobe image 54 series 2 unchanged from 06/10/2025 CT comparison. Splenomegaly measuring up to 13 cm in maximum AP dimension withoutsignificant change from prior exam. Lumbar spine: Mixed lucent and sclerotic metastases without significant change from prior exam. Suspect old pathologic fracture with bony retropulsion at L4 by up to 4 mm image 33 series 5 unchanged from 06/10/2025 CT comparison. This may result in high-grade central spinal canal stenosis similar toprior exam. No visualized displaced acute fracture, vertebral body height loss or traumatic malalignment of the lumbar spine. Multilevel degenerative disc disease and facet arthropathy with probably mild to moderate central spinal canal stenosis L2-L3 and L3-L4. Varying degrees of neuroforaminal stenosis up to moderate severity bilaterally L3-L4, severe right moderate to severe left L4-L5 and moderate bilateral L5-S1 probably similar to prior comparison. No visualized retroperitoneal adenopathy. Few nonobstructing renal calculi largest in the left inferior pole measuring up to 1.3 cm unchanged from prior exam. Impression: Impression: 1. Grossly stable mixed lucent and sclerotic osseous metastases detailed above compared to prior CTimaging comparisons. No new suspicious pathologic fracture. 2. Similar-appearing probable old pathologic fracture at L4 with bony retropulsion resulting in possible high-grade central spinal canal stenosis. This could be assessed by MRI as clinically indicated. 3. Similar hypodense lesions in the right occipital lobe and left cerebellum, in keeping with intracranial metastases noted on prior contrasted MRI comparisons. 4. Stable small pulmonary nodules. Stable splenomegaly. No enlarging adenopathy to suggest disease progression. 5. Other chronic/ancillary findings as above. Electronically Signed: Galen Hawley MD 2025 10:10 PM EDT Workstation ID: [id number] CT Lumbar Spine Without Contrast [[id number]] Collected: 07/14/252153 Updated: 07/14/252212 Narrative: CT HEAD WO CONTRAST, CT LUMBAR SPINE WO CONTRAST, CT THORACIC SPINE WO CONTRAST, CT CERVICAL SPINE WO CONTRAST Date of Exam: 2025 9:24 PM EDT Indication: fall, LLE pain/weakness, eval fxr and metastasis. Comparison: Brain MRI 06/10/2025, CT chest abdomen pelvis 06/10/2025, CT soft tissue neck 11/27/2024 Technique: Axial CT images were obtained of the head and total spine without contrast administration. Automated exposure control and iterative construction methods were used. Findings: Head CT: Vague hypodensity in the right occipital lobe and left cerebellar hemisphere unchanged from prior MRI. These are in keeping with known intracranial metastases. Negative for large territory infarct, acute intracranial hemorrhage, midline shift or hydrocephalus. Mild periventricular hypodensity favoring sequelae of chronic microvascular ischemicchange. No large extra-axial fluid collection. Orbits are symmetric. No obstructive sinus disease. No large mastoid effusion. No aggressive bone lesion or displaced fracture. Cervical spine: Osseous metastases without significant change from prior CT neck comparison. No visualized displaced fracture, vertebral body height loss or malalignment. Minimal degenerative disc disease. Overall mild facet arthropathy. Negative for high-grade central spinal canal stenosis. Severeright neuroforaminal stenosis C3-C4 similar to prior, other show low-grade stenosis. Similar heterogeneous enlargement of the right thyroid gland outpatient thyroid ultrasound could be considered. Partially imaged right IJ central catheter. No suspicious adenopathy in the neck. Thoracic spine: Heterogeneous mixed lucent and sclerotic metastases without significant change fromprior exam. Mild chronic superior endplate height loss of T1 and T10. There is multilevel degenerative change without high-grade central spinal canal stenosis. Severe neuroforaminal stenosis on the left at T10-T11 and T11-T12 similar to prior exam. Heterogeneous more expansile rib lesions noted most significant involving the second, right posterior ninth and right posterior 12th ribs. Few chronicappearing nondisplaced rib fractures stable from prior pulse representing prior pathologic fractures. Right IJ central catheter terminates near the cavoatrial junction. No suspicious mediastinal or hilar adenopathy. Few pulmonary nodules measuring up to 6 mm left upper lobe image 54 series 2 unchanged from 06/10/2025 CT comparison. Splenomegaly measuring up to 13 cm in maximum AP dimension withoutsignificant change from prior exam. Lumbar spine: Mixed lucent and sclerotic metastases without significant change from prior exam. Suspect old pathologic fracture with bony retropulsion at L4 by up to 4 mm image 33 series 5 unchanged from 06/10/2025 CT comparison. This may result in high-grade central spinal canal stenosis similar toprior exam. No visualized displaced acute fracture, vertebral body height loss or traumatic malalignment of the lumbar spine. Multilevel degenerative disc disease and facet arthropathy with probably mild to moderate central spinal canal stenosis L2-L3 and L3-L4. Varying degrees of neuroforaminal stenosis up to moderate severity bilaterally L3-L4, severe right moderate to severe left L4-L5 and moderate bilateral L5-S1 probably similar to prior comparison. No visualized retroperitoneal adenopathy. Few nonobstructing renal calculi largest in the left inferior pole measuring up to 1.3 cm unchanged from prior exam. Impression: Impression: 1. Grossly stable mixed lucent and sclerotic osseous metastases detailed above compared to prior CTimaging comparisons. No new suspicious pathologic fracture. 2. Similar-appearing probable old pathologic fracture at L4 with bony retropulsion resulting in possible high-grade central spinal canal stenosis. This could be assessed by MRI as clinically indicated. 3. Similar hypodense lesions in the right occipital lobe and left cerebellum, in keeping with intracranial metastases noted on prior contrasted MRI comparisons. 4. Stable small pulmonary nodules. Stable splenomegaly. No enlarging adenopathy to suggest disease progression. 5. Other chronic/ancillary findings as above. Electronically Signed: Galen Hawley MD 2025 10:10 PM EDT Workstation ID: [id number] MRI CERVICAL SPINE W WO CONTRAST Date of Exam: 07/15/2025 12:15 PM EDT Indication: eval cord compression. Breast cancer Comparison: CT cervical spine from 2025 and MRI cervical spine from December 18, 2019 Technique: Routine multiplanar/multisequence sequence images of the cervical spine were obtained before and after the uneventful administration of Vueway. Findings: The alignment is anatomic. The craniocervical junction appears intact. Several sclerotic osseous metastasis are present, better characterized on recent prior CT. The cervical vertebral body heights appear normal. There is a mild chronic superior endplate compression deformity at T1. There is disc desiccation at all levels. The partially visualized posterior fossa contents are unremarkable. There is diffuse T2 hyperintensity within the spinal cord extending from the level of C1 inferiorlythrough the visualized upper thoracic spine. In addition, there is a 1.2 x 0.8 x 2.5 cm (TR X AP X CC) heterogeneously enhancing mass within the spinal canal at the C6-7 level, which appears to be intramedullary. These are new findings from prior MRI from 2021. C2-3: Small central disc protrusion. Mild bilateral facet arthropathy. No spinal canal stenosis. Noneural foraminal stenosis. C3-4: Moderate central disc protrusion. Moderate bilateral facet arthropathy. Moderate right uncovertebral hypertrophy. Mild spinal canal stenosis. Severe right neural foraminal stenosis. C4-5: Mild disc osteophyte complex with superimposed small central disc protrusion. Moderate bilateral facet arthropathy. Moderate right and mild left uncovertebral hypertrophy. Mild spinal canal stenosis. Mild right and moderate left neural foraminal stenosis. C5-6: Moderate central disc protrusion. Moderate bilateral facet arthropathy. Mild bilateral uncovertebral hypertrophy. Moderate spinal canal stenosis. Mild right neural foraminal stenosis. C6-7: Mild disc bulge with superimposed tiny central disc protrusion. Moderate bilateral facet arthropathy. Mild right and moderate left uncovertebral hypertrophy. Mild spinal canal stenosis. Mild bilateral neural foraminal stenosis. C7-T1: No spinal canal or neural foraminal stenosis. IMPRESSION: Impression: 1.2.5 cm heterogeneously enhancing mass within spinal canal at the C6-7 level, which appears to be intramedullary. There is diffuse T2 hyperintensity within the spinal cord extending from the level of C1 inferiorly through the visualized upper thoracic spine. These are new findings from prior MRI from 2021. Findings are concerning for metastasis, with primary spinal cord neoplasm felt less likely. 2.Several sclerotic osseous metastasis, better characterized on recent prior CT. 3.Moderate multilevel degenerative changes of cervical spine as described above. Electronically Signed: Gabino Peace MD 07/15/2025 2:45 PM EDT Workstation ID: [id number] Lab 07/15/25 0918 HEMOGLOBIN A1C 5.83* Diagnostics: No valid procedures specified. A: Cauda equina syndrome Breast cancer metastasized to bone Falls Anemia, chronic disease Thrombocytopenia Stage 3b chronic kidney disease Moderate protein-calorie malnutrition Impression: Metastatic breast CA Intraspinal mass Cspine per MRI Anemia CKD Symptoms: Weakness Urinary retention- ?neuro bladder Debility P: Await NS f/u of MRI. Continue to monitor PVRs for excess retention and encouraged OOB for max emptying. Wants to continue full code status. Thank you for this consult and allowing us to participate in patient's plan of care. Palliative Care Team will continue to follow patient. Karen Ortiz MD, 07/15/2025, 16:25 EDT [1] Social History Socioeconomic History Marital status: Tobacco Use Smoking status: Never Smokeless tobacco: Never Vaping Use Vaping status: Never Used Substance and Sexual Activity Alcohol use: Not Currently Drug use: No Sexual activity: Defer Partners: Male Comment: * Crow Rouse MD - 07/15/2025 11:29 AM EDTAssociated Order(s): IP CONSULT TO RADIATION ONCOLOGY Images from the original note were not included. CONSULTATION NOTE NAME: Peter Parnell : 1960 DATE OF CONSULTATION: 07/15/2025 REQUESTING PHYSICIAN: No ref. provider found REASON FOR CONSULTATION: 1. Cauda equina syndrome 2. Metastatic malignant neoplasm, unspecified site 3. Adenocarcinoma of 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 4. Malignant neoplasm of upper-outer quadrant of left breast in female, estrogen receptor positive BRIEF HISTORY: Peter Parnell is a very pleasant 65 y.o. female with a known diagnosis of metastatic Her-2/yadi positive breast cancer. She has a long history of metastatic disease and has been under the care of Dr. Zapata who has been prescribing her Enhertu for the past 3 years. She has also completed multiple courses of radiation under Dr. Mackay, who has since retired. Her radiation history is below: Left Breast Adjuvant Treatment (05/2014): 40.05 Gy to the left breast Sacrum (12/2021): 30 Gy in 10 fractions L3-5 (12/2021): 30 Gy in 10 fractions Whole brain radiation (08/2022): 30 Gy in 10 fractions She is now admitted with progressive weakness, multiple falls, and progressive disease. 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 She denies severe pain, but does report occasional discomfort in the low back, midline. She denies bowel or bladder incontinence. She denies any other symptoms and specifically denies numbness or tingling.. She is now admitted, and has completed scans of the brain and spine. We have been consulted to evaluate for possible spinal cord compression and new brain metastases. Of note, she reports that following her prior radiation treatments, and in particular the whole brain radiation treatments, she experienced quite a bit of side effects including permanent hair loss/thinning, poor eye sight, and corneal abrasions, which have taken a long time to recover. She is therefore hesitant towards the idea of additional radiation treatments. Allergies[1] Social History[2] Past Medical History: Diagnosis Date Back problem Bone cancer Mets Breast cancer Diabetes mellitus Drug therapy 12/2013 History of radiation therapy 01/19/2022 L3-L5, sacrum History of radiation therapy 09/26/2022 Whole brain radiotherapy Hx of radiation therapy 04/2014 Kidney stone Liver carcinoma Mets Malignant neoplasm of upper-outer quadrant of left breast in female, estrogen receptor positive 08/22/2016 Neuropathy Radiation family history includes Cancer in her mother and sister; Diabetes in her mother and sister; Kidney cancer in her sister; Lung cancer in her mother; No Known Problems in her father. Past Surgical History: Procedure Laterality Date BREAST BIOPSY Left BREAST LUMPECTOMY Left 11/2013 CATARACT EXTRACTION Right 02/11/2024 HEAD/NECK LESION/CYST EXCISION Right 12/02/2020 Procedure: WIDE EXCISION MALIGNANT LESION OF SCALP; Surgeon: Evens Wagner MD; Location: [facility]; Service: General; Laterality: Right; LIVER BIOPSY 09/22/2019 OOPHORECTOMY PORTACATH PLACEMENT Right 2019 SKIN FULL THICKNESS GRAFT Right 12/02/2020 Procedure: FULL THICKNESS SKIN GRAFT, RESECTION OF TUMOR OF RIGHT NECK; Surgeon: Evens Wagner MD; Location: [facility]; Service: General; Laterality: Right; Review of Systems Constitutional: Negative. HENT: Negative. Eyes: Negative. Respiratory: Negative. Cardiovascular: Negative. Gastrointestinal: Negative. Genitourinary: Negative for bladder incontinence and difficulty urinating. Musculoskeletal: Positive for back pain and gait problem. Neurological: Positive for dizziness, extremity weakness and gait problem. Negative for headaches, light-headedness, numbness and seizures. Hematological: Negative for adenopathy. Does not bruise/bleed easily. Psychiatric/Behavioral: Negative. Objective VITAL SIGNS: Vitals: 07/15/25 0230 07/15/25 0250 07/15/25 0659 07/15/25 1034 BP: 127/78 134/70 123/69 BP Location: Right arm Right arm Right arm Patient Position: Lying Lying Lying Pulse: 84 87 73 76 Resp: 18 18 18 Temp: 97.9 ??F (36.6 ??C) 98.2 ??F (36.8 ??C) 97.6 ??F (36.4 ??C) TempSrc: Oral Oral SpO2: 98% 98% 97% 98% Weight: 71 kg (156 lb 9.6 oz) 72.1 kg (159 lb) Height: KPS 60 Physical Exam Vitals and nursing note reviewed. Constitutional: General: She is not in acute distress. Appearance: She is well-developed. HENT: Head: Normocephalic and atraumatic. Comments: Alopecia, mostly with hair loss along midline of the scalp and thinning along the lateralaspects Eyes: Conjunctiva/sclera: Conjunctivae normal. Pupils: Pupils are equal, round, and reactive to light. Cardiovascular: Rate and Rhythm: Normal rate and regular rhythm. Heart sounds: No murmur heard. No friction rub. Pulmonary: Effort: Pulmonary effort is normal. Breath sounds: Normal breath sounds. No wheezing. Abdominal: General: Bowel sounds are normal. There is no distension. Palpations: Abdomen is soft. There is no mass. Tenderness: There is no abdominal tenderness. Musculoskeletal: General: Normal range of motion. Cervical back: Normal range of motion and neck supple. Lymphadenopathy: Cervical: No cervical adenopathy. Skin: General: Skin is warm and dry. Neurological: Mental Status: She is alert and oriented to person, place, and time. 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 Difficult to determine whether due to weakness or if balance is poor. No drift Psychiatric: Behavior: Behavior normal. Thought Content: Thought content normal. Judgment: Judgment normal. IMAGING I have personally reviewed the relevant imaging studies, as follows: MRI Lumbar Spine With & Without Contrast Result Date: 07/15/2025 MRI LUMBAR SPINE W WO CONTRAST Date of Exam: 2025 Impression: 1.Multiple osseous metastasis in the lumbar spine and right ilium. The majority of the metastasis appear to have decreased in size and appear less sclerotic, but the large enhancing metastasis in the T12 vertebral body and right 12th rib appears new from 2021. 2.Stable pathologic compression fracture at L4 with retropulsion of the posterior cortex resulting in high-grade spinal canal stenosis with compression of the cauda equina. 3.Moderate lumbar spondylosis with varying degrees ofneuroforaminal and spinal canal narrowing as described. Electronically Signed: Homero Perez MD 07/15/2025 12:09 AM EDT Workstation ID: [id number] On my own personal review, the disease at T12 is mostly lateral involving the pedicle and adjacent rib. There is no evidence of spinal cord compromise at this level. See image below where I have highlighted the T12 level with the red alturas. The lesion at L4 involving the inferior endplate is midline and does result in epidural extension and compression, but there does not appear to be any signalchanges in the cauda equina itself to significant severe compression. MRI Brain With & Without Contrast Result Date: 2025 MRI BRAIN W WO CONTRAST Date of Exam: 2025 Impression: 1.Multiple enlarging intracranial metastasis. There is increased edema associated with the left cerebellar metastasis resulting in mild mass effect without midline shift or ventricular effacement. 2.Abnormal high T2 signal within the central cervical spinal cord at the level of the dens. This does raise concern for a more distal cord metastasis or compression. Recommend cervical MRI with IV contrast. 3.Stable mild chronic small vessel ischemic change. 4.Left frontal sinus mucosal disease and left mastoid effusion. Electronically Signed: Homero Perez MD 2025 11:45 PM EDT Workstation ID: [id number] CT Lumbar Spine Without Contrast Result Date: 2025 CT HEAD WO CONTRAST, CT LUMBAR SPINE WO CONTRAST, CT THORACIC SPINE WO CONTRAST, CT CERVICAL SPINE WO CONTRAST Date of Exam: 2025 Impression: 1. Grossly stable mixed lucent and sclerotic osseous metastases detailed above comparedto prior CT imaging comparisons. No new suspicious pathologic fracture. 2. Similar-appearing probable old pathologic fracture at L4 with bony retropulsion resulting in possible high-grade central spinal canal stenosis. This could be assessed by MRI as clinically indicated. 3. Similar hypodense lesions in the right occipital lobe and left cerebellum, in keeping with intracranial metastases noted on prior contrasted MRI comparisons. 4. Stable small pulmonary nodules. Stable splenomegaly. No enlarging adenopathy to suggest disease progression. 5. Other chronic/ancillary findings as above. Electronically Signed: Galen Hawley MD 2025 10:10 PM EDT Workstation ID: [id number] The following portions of the patient's history were reviewed and updated as appropriate: allergies, current medications, past family history, past medical history, past social history, past surgicalhistory, and problem list. Assessment IMPRESSION: Ms. 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 RECOMMENDATIONS: Diagnoses and all orders for this visit: 1. L4 Metastasis - she has a compression fracture at L4 that is compressing the epidural space at L4, but clinically she does not have cauda equina syndrome. I agree that treatment may benefit her atthis level, but given the timeline of her weakness, and the current imaging findings, I suspect there are additional reasons for her weakness besides this focal area. She has previously received radiation to L3-5 in 2021, so we are somewhat limited in ability to retreat L4. Will tentatively plan totreat L4 using radiation, and will likely need to treat using SBRT, single fraction of 12-14 Gy. 2. T12 Metastasis - the disease at this level is more lateralized and involving the right pedicle. Although this is a site of progressive disease, it is not causing spinal cord compression (see screenshot above), and given it is lateralized to the right, it is not the direct cause of her left leg weakness. She does not appear to be overtly in pain on exam and her symptoms do not localize to this area. That being said, I do see this site as a highly likely area to become clinically symptomatic in the upcoming weeks or months. If we are going to be treating L4, then we can easily and readily treat this level at the same time. 3. Lower Extremity Weakness and Symptoms - Her MRI brain showed an area of potential enhancement inthe cervical spine on the leather craftsman images. This would be a far more likely area to cause some of the weakness and symptoms she is experiencing. Will await the results of her MRI which will be done laterthis afternoon. 4. Brain metastases - She has a total of 7 measurable WATER RECLAMATION SYSTEMS OPERATOR lesions. She has also already received whole brain radiation, which it does not sound like she tolerated very well. Based on her symptoms andexam findings, the left cerebellar lesion is highly likely to be contributing to her presentation. I do think it would be worthwhile to target that site of disease, which we could do using Cyberknife. In that sense, it would be worthwhile to go ahead and treat the remaining areas as well. Treatment Plans: Await results of her MRI C spine The T12 and L4 sites of involvement can be treated, and I would favor treating her using a single treatment of radiation to each site. The L4 level has already been treated, so radiation planning will be more complex and I anticipate if we perform a radiation planning session tomorrow, we can aim to treat on Saturday or Saturday. Brain metastases - will tentatively plan to have her undergo treatment planning and will then coordinate Cyberknife treatments likely as an outpatient in the next 1-2 weeks I spent a total of 63 minutes on today's cause, with 35 minutes in direct face to face communication, and the remainder of time was spent reviewing her records, prior radiation history and plans, including imaging, and for documentation. Crow Rouse MD [1] No Known Allergies [2] Social History Tobacco Use Smoking status: Never Smokeless tobacco: Never Vaping Use Vaping status: Never Used Substance Use Topics Alcohol use: Not Currently Drug use: No * Bryn Valera MD - 07/15/2025 9:07 AM EDTAssociated Order(s): IP CONSULT TO NEUROSURGERY NEUROSURGERY CONSULTATION Referring Provider: No ref. provider found Patient Care Team: Loretta Landon MD as PCP - General Loretta Landon MD as PCP - Family Medicine Bryn Valera MD as Surgeon (Neurosurgery) Flower Mackay MD as Consulting Physician (Radiation Oncology) Valentina Sadler MD as Referring Physician (Hematology) Chief Complaint: Generalized weakness. History of Present Illness: Ms. Parnell is a 65-year-old woman who is known to my service. I saw herin December 2021. At that time she was noted to have metastatic breast cancer with some spine metastases. She has been dealing with issues related to her breast cancer since 2018. At that time in 2021 surgery was not recommended. She did undergo radiotherapy by Dr. Mackay at that time. 30 Humphries delivered in 10 fractions to the L3-5 level was completed on 01/19/2022. She has had chronic spine difficulties. She has had generalized weakness. She reports that her balance has been off for about a month. She has had frequent falling. Her weakness is generalized but the left leg may be a bit more weak. She has no radicular pain. She has no reported numbness. She has diminished coal wheeler but no focal upper extremity weakness. She has some neck stiffness at times but no headache. Her back pain is really at baseline. Review of Systems: Musculoskeletal and Neurological systems were reviewed and are negative except for: Musculoskeletal: positive for back pain. Neurological: positive for difficulty walking and weakness. History: Past Medical History: Diagnosis Date Back problem Bone cancer Mets Breast cancer Diabetes mellitus Drug therapy 12/2013 History of radiation therapy 01/19/2022 L3-L5, sacrum History of radiation therapy 09/26/2022 Whole brain radiotherapy Hx of radiation therapy 04/2014 Kidney stone Liver carcinoma Mets Malignant neoplasm of upper-outer quadrant of left breast in female, estrogen receptor positive 08/22/2016 Neuropathy Radiation , Past Surgical History: Procedure Laterality Date BREAST BIOPSY Left BREAST LUMPECTOMY Left 11/2013 CATARACT EXTRACTION Right 02/11/2024 HEAD/NECK LESION/CYST EXCISION Right 12/02/2020 Procedure: WIDE EXCISION MALIGNANT LESION OF SCALP; Surgeon: Evens Wagner MD; Location: [facility]; Service: General; Laterality: Right; LIVER BIOPSY 09/22/2019 OOPHORECTOMY PORTACATH PLACEMENT Right 2019 SKIN FULL THICKNESS GRAFT Right 12/02/2020 Procedure: FULL THICKNESS SKIN GRAFT, RESECTION OF TUMOR OF RIGHT NECK; Surgeon: Evens Wagner MD; Location: [facility]; Service: General; Laterality: Right; , Family History Problem Relation Age of Onset Diabetes Mother Cancer Mother Lung cancer Mother No Known Problems Father Cancer Sister Diabetes Sister Kidney cancer Sister Breast cancer Neg Hx Endometrial cancer Neg Hx Ovarian cancer Neg Hx , Social History[1], Prescriptions Prior to Admission[2] Allergies: Patient has no known allergies. Physical Exam: Vital Signs: Blood pressure 134/70, pulse 73, temperature 98.2 ??F (36.8 ??C), temperature source Oral, resp. rate 18, height 170.2 cm (67 ), weight 71 kg (156 lb 9.6 oz), SpO2 97%, not currently . The patient is resting comfortably in bed. She moves about slowly while in bed. She has diffuse alopecia. Strength and tone are largely normal throughout. Sensation is intact to light touch testing. Reflexes are difficult to elicit throughout. There is mild tenderness in her low back to palpation but not in her neck or mid back. Data Review: CT of the thoracic spine demonstrates diffuse spondylosis and sclerotic areas consistent with her known metastatic disease. High-grade fracture or subluxation is not identified. CT of the lumbar spine demonstrates some fracture of the L4 vertebral body with some central bony retropulsion. CT of the cervical spine demonstrates some signal change with some of the vertebral body consistentwith her known metastatic disease. There is not a severe fracture or subluxation. MRI of the lumbar spine demonstrates metastatic lesions involving T12 and in particular the L4 where there is some pathologic fracture with a central bony component that causes generous but not profound spinal stenosis. There is no cord compromise at T12 where there is tumor involvement. MRI of the brain demonstrates diffuse metastatic lesions. The largest of these is in the lateral cerebellar hemisphere on the left. There is a question of a lesion within the upper cervical cord. Results from last 7 days Lab Units 07/14/25 2206 SODIUM mmol/L 142 POTASSIUM mmol/L 4.3 CHLORIDE mmol/L 103 CO2 mmol/L 25.5 BUN mg/dL 27.0* CREATININE mg/dL 1.66* GLUCOSE mg/dL 133* CALCIUM mg/dL 9.8 Results from last 7 days Lab Units 07/14/25 2206 WBC 10*3/mm3 4.79 HEMOGLOBIN g/dL 8.1* HEMATOCRIT % 26.7* PLATELETS 10*3/mm3 90* Diagnosis: 1. Diffuse spinal metastases. 2. Multiple brain metastases. 3. Generalized weakness likely due to her disease and associated treatment. 4. Widely disseminated metastatic Treatment Recommendations: MRI imaging of the cervical spine is pending. At this juncture I do not envision a role for surgical intervention. She may require radiotherapy for her spine and brain lesions. She is not overtly myelopathic on examination at this point. She does not have substantial spinal pain that would warrant vertebral augmentation. Neurosurgery will follow. The patient does NOT have a cauda equina syndrome as indicated in the hospitalist note. Bryn Valera MD 07/15/25 09:08 EDT [1] Social History Tobacco Use Smoking status: Never Smokeless tobacco: Never Vaping Use Vaping status: Never Used Substance Use Topics Alcohol use: Not Currently Drug use: No [2] Medications Prior to Admission Medication Sig Dispense Refill Last Dose/Taking Carboxymethylcellulose Sodium (EYE DROPS OP) Apply to eye(s) as directed by provider. Serum Tears 2025 donepezil (Aricept) 10 MG tablet Take 1 tablet by mouth Every Night. 30 tablet 5 2025 erythromycin (ROMYCIN) 5 MG/GM ophthalmic ointment APPLY A SMALL AMOUNT AT BEDTIME 2025 hydroCHLOROthiazide (HYDRODIURIL) 12.5 MG tablet Take 1-2 tablet(s) by mouth daily as needed 180 tablet 1 2025 lidocaine-prilocaine (EMLA) 2.5-2.5 % cream Apply 1 application topically to the appropriate area as directed as needed (45-60 minutes prior to port access. Cover with saran/plastic wrap). 30 g 5 2025 memantine (Namenda) 5 MG tablet Take 1 tablet by mouth 2 (Two) Times a Day. 60 tablet 5 2025 metFORMIN (GLUCOPHAGE) 500 MG tablet Take 5 tablets by mouth Daily. 450 tablet 1 2025 moxifloxacin (VIGAMOX) 0.5 % ophthalmic solution INSTILL 1 DROP INTO EACH EYE THREE TIMES DAILY 2025 multivitamin with minerals tablet tablet Take 1 tablet by mouth Daily. 2025 ondansetron (ZOFRAN) 8 MG tablet Take 1 tablet by mouth 3 (Three) Times a Day As Needed for Nausea or Vomiting. 30 tablet 5 2025 oxyCODONE-acetaminophen (PERCOCET) 7.5-325 MG per tablet Take 1 tablet by mouth Every 6 (Six) HoursAs Needed for Moderate Pain. 120 tablet 0 2025 prednisoLONE acetate (PRED FORTE) 1 % ophthalmic suspension Administer 1 drop to both eyes 3 (Three) Times a Day. 2025 * Valentina Sadler MD - 07/15/2025 8:37 AM EDTAssociated Order(s): IP CONSULT TO HEMATOLOGY AND ONCOLOGY HEMATOLOGY/ONCOLOGY INPATIENT CONSULTATION REFERRING PHYSICIAN: Meaghan Guerrier MD PRIMARY CARE PROVIDER: Loretta Landon MD REASON FOR CONSULTATION: Progressive breast cancer HISTORY OF PRESENT ILLNESS: 65-year-old lady who has been dealing with stage IV breast cancer [id number] presents with cord compression at T12 with inability to walk and multiple falls. Patient's been dealing with brain metastases fairly controlled with neratinib. Now she has clear progression of disease in the periphery. This was controlled on Enhertu however when she had brain mets that presented we had to switch her to TKI. Now she has peripheral disease that is worsening. She also has her brain mets that seems to be growing. She is fairly symptomatic from her lesion at T12. Overall otherwise having some issues with dizziness. Allergies[1] Past Medical History: Diagnosis Date Back problem Bone cancer Mets Breast cancer Diabetes mellitus Drug therapy 12/2013 History of radiation therapy 01/19/2022 L3-L5, sacrum History of radiation therapy 09/26/2022 Whole brain radiotherapy Hx of radiation therapy 04/2014 Kidney stone Liver carcinoma Mets Malignant neoplasm of upper-outer quadrant of left breast in female, estrogen receptor positive 08/22/2016 Neuropathy Radiation Current Medications[2] Past Surgical History: Procedure Laterality Date BREAST BIOPSY Left BREAST LUMPECTOMY Left 11/2013 CATARACT EXTRACTION Right 02/11/2024 HEAD/NECK LESION/CYST EXCISION Right 12/02/2020 Procedure: WIDE EXCISION MALIGNANT LESION OF SCALP; Surgeon: Evens Wagner MD; Location: [facility]; Service: General; Laterality: Right; LIVER BIOPSY 09/22/2019 OOPHORECTOMY PORTACATH PLACEMENT Right 2019 SKIN FULL THICKNESS GRAFT Right 12/02/2020 Procedure: FULL THICKNESS SKIN GRAFT, RESECTION OF TUMOR OF RIGHT NECK; Surgeon: Evens Wagner MD; Location: [facility]; Service: General; Laterality: Right; Social History[3] Family History Problem Relation Age of Onset Diabetes Mother Cancer Mother Lung cancer Mother No Known Problems Father Cancer Sister Diabetes Sister Kidney cancer Sister Breast cancer Neg Hx Endometrial cancer Neg Hx Ovarian cancer Neg Hx Oncology/Hematology History Overview Note 1. Stage IIA, ER/ME positive, HER-2 positive left upper/outer quadrant breast cancer, status post lumpectomy and lymph node dissection with 2/5 lymph nodes positive at the time of surgery on 12/01/2013. 2. Completed 6 cycles of Taxotere, carboplatin, Herceptin and Perjeta on 04/06/2014. 3. Grade 1 neuropathy, resolved. 4. Complete oophorectomy with Dr. Abarca for consideration of aromatase inhibitor due to [...] Liver and Bone Mets - ER negative, ME Negative and HER-2 positve Lab Results Component [...] - Chemotherapy OP BREAST Fam-Trastuzumab Deruxtecan-nxki 12/12/2024 - 12/12/2024 Biopsy OP BREAST Neratinib Plan Provider: Valentina Sadler MD Treatment goal: Palliative Line of treatment: Third Line Breast cancer metastasized to bone 09/25/2019 Initial Diagnosis Bone metastases [...] via External Beam Radiation - EBRT. 12/12/2024 - 12/12/2024 Biopsy OP BREAST Neratinib Plan Provider: Valentina Sadler MD Treatment goal: Palliative Line of treatment: Third Line REVIEW OF SYSTEMS: A 14 point review of systems was performed and is negative except as noted below. Review of Systems Constitutional: Negative. HENT: Negative. Eyes: Negative. Respiratory: Negative. Cardiovascular: Negative. Gastrointestinal: Negative. Endocrine: Negative. Genitourinary: Negative. Musculoskeletal: Positive for gait problem. Skin: Negative. Neurological: Positive for dizziness, extremity weakness and gait problem. Objective Vitals: 07/15/25 0200 07/15/25 0230 07/15/25 0250 07/15/25 0659 BP: 127/78 134/70 BP Location: Right arm Right arm Patient Position: Lying Lying Pulse: 114 84 87 73 Resp: 18 18 Temp: 97.9 ??F (36.6 ??C) 98.2 ??F (36.8 ??C) TempSrc: Oral Oral SpO2: 95% 98% 98% 97% Weight: 71 kg (156 lb 9.6 oz) Height: Temp: [97.9 ??F (36.6 ??C)-98.6 ??F (37 ??C)] 98.2 ??F (36.8 ??C) Performance Status: 4 Physical Exam General: well appearing female in no acute distress HEENT: sclerae anicteric, oropharynx clear Lymphatics: no cervical, supraclavicular, or axillary adenopathy Cardiovascular: regular rate and rhythm, no murmurs Lungs: clear to auscultation bilaterally Abdomen: soft, nontender, nondistended. No palpable organomegaly Extremities: Left lower extremity paresis with considerable weakness Skin: no rashes, lesions, bruising, or petechiae LABS: Lab Results Component Value Date HGB 8.1 (L) 2025 HCT 26.7 (L) 2025 MCV 84.2 2025 PLT 90 (L) 2025 WBC 4.79 2025 NEUTROABS 3.90 2025 LYMPHSABS 0.44 (L) 2025 MONOSABS 0.40 2025 EOSABS 0.02 2025 BASOSABS 0.01 2025 Lab Results Component Value Date GLUCOSE 133 (H) 2025 BUN 27.0 (H) 2025 CREATININE 1.66 (H) 2025 NA 142 2025 K 4.3 2025 CL 103 2025 CO2 25.5 2025 CALCIUM 9.8 2025 PROTEINTOT 7.3 2025 ALBUMIN 4.0 2025 BILITOT 0.4 2025 ALKPHOS 151 (H) 2025 AST 40 (H) 2025 ALT 28 2025 IMAGING MRI Lumbar Spine With & Without Contrast Result Date: 07/15/2025 MRI LUMBAR SPINE W WO CONTRAST Date of Exam: 2025 11:15 PM EDT Indication: eval cauda equina,mets, fxr. Comparison: CT lumbar 2025 and MR lumbar spine 12/17/2021. Technique: Routine multiplanar/multisequence sequence images of the lumbar spine were obtained before and after the uneventful administration of Vueway. Findings: There is redemonstration of an avidly enhancing metastasis occ upying the right and posterior aspects of the T12 vertebral body extending into the right 12th rib and transverse process with associated bone destruction and soft tissue mass. There are multiple additional lumbar spinal metastasis that appear mixed signal intensity without significant enhancement.Metastatic lesions are noted at L3, L4, L5 and S1. There is stable posterior inferior endplate compression fracture at L4, which appears pathologic and is associated with an intravertebral disc herniation. This results in retropulsion of the posterior cortex up to 6 mm and results in high-grade spinal canal stenosis with compression of the cauda equina. There is an additional metastasis in the right ilium. Compared with the MRI dated 12/17/2021, the majority of the metastasis appear to have decreased in size and appear less sclerotic, but the large enhancing metastasis in the T12 vertebral body and right 12th rib appears new from 2021. There is no new fracture. There is mild to moderate diffuse disc space narrowing and mild to moderate diffuse facet arthritis most pronounced in the lower lumbar spine. At L1-L2, there is concentric disc bulge and mild facet and ligamentum flavum hypertrophy without neuroforaminal or spinal canal compromise. At L2-L3, there is concentric disc bulge and mild facet and ligamentum flavum hypertrophy resulting in mild bilateral neuroforaminal narrowing andmild narrowing of the spinal canal. At L3-L4, there are similar degenerative changes with mild to moderate bilateral neuroforaminal narrowing and mild narrowing of the spinal canal. At L4-L5, there is concentric disc bulge and retropulsion as discussed above with moderate facet and ligamentum flavum hypertrophy resulting in severe narrowing of the spinal canal with compression of the cauda equinaand moderate bilateral neuroforaminal narrowing. At L5-S1, there is concentric disc bulge and mild facet arthropathy contributing to mild bilateral neuroforaminal narrowing. There is preservation of the posterior paraspinal musculature. There is a hypointense structure in the inferior left kidney likely corresponding to a large kidney stone. Impression: 1.Multiple osseous metastasis in the lumbar spine and right ilium. The majority of the metastasis appear to have decreased in size and appear less sclerotic, but the large enhancing metastasis in the T12 vertebral body and right 12th rib appears new from 2021. 2.Stable pathologic compression fracture at L4 with retropulsion of the posterior cortex resulting in high-grade spinal canal stenosis with compression of the cauda equina. 3.Moderate lumbar spondylosis with varying degrees ofneuroforaminal and spinal canal narrowing as described. Electronically Signed: Homero Perez MD 07/15/2025 12:09 AM EDT Workstation ID: [id number] XR Hips Bilateral With or Without Pelvis 5 View Result Date: 07/15/2025 XR FEMUR 2 VW LEFT XR TIBIA FIBULA 2 VW LEFT XR HIPS BILATERAL W OR WO PELVIS 5 VIEW Date of Exam: 2025 11:03 PM EDT Indication: fall, LLE pain/weakness, eval fxr and metastasis. Comparison: None available. Findings: The bony pelvis appears intact without fracture. There is severe diffuse pelvic and trochanteric enthesopathy. Mild symmetric SI joint degeneration. Pubic symphysis and obturato r rings appear intact. There is minimal lumbar spondylosis. There are dilated small bowel loops in the central abdomen measuring up to 3.6 cm diameter. There is also mild colonic fecal retention. There is moderate osteoarthritis of both hips. No evidence of hip fracture or dislocation. The mid and distal left femur appears intact without fracture. There is minimal degenerative change at the knee.The bones are diffusely demineralized. The left tibia and fibula appear intact without fracture or dislocation. Joint spaces at the knee and ankle appear well-maintained. Impression: 1.No acute osseous abnormality. 2.Moderate osteoarthritis of both hips. 3.Severe diffuse pelvic and trochanteric enthesopathy. 4.Dilated small bowel loops in the central abdomen. Correlate for ileus or obstruction. Electronically Signed: Homero Perez MD 07/15/2025 12:01 AM EDT Workstation ID: [id number] XR Femur 2 View Left Result Date: 07/15/2025 XR FEMUR 2 VW LEFT XR TIBIA FIBULA 2 VW LEFT XR HIPS BILATERAL W OR WO PELVIS 5 VIEW Date of Exam: 2025 11:03 PM EDT Indication: fall, LLE pain/weakness, eval fxr and metastasis. Comparison: None available. Findings: The bony pelvis appears intact without fracture. There is severe diffuse pelvic and trochanteric enthesopathy. Mild symmetric SI joint degeneration. Pubic symphysis and obturato r rings appear intact. There is minimal lumbar spondylosis. There are dilated small bowel loops in the central abdomen measuring up to 3.6 cm diameter. There is also mild colonic fecal retention. There is moderate osteoarthritis of both hips. No evidence of hip fracture or dislocation. The mid and distal left femur appears intact without fracture. There is minimal degenerative change at the knee.The bones are diffusely demineralized. The left tibia and fibula appear intact without fracture or dislocation. Joint spaces at the knee and ankle appear well-maintained. Impression: 1.No acute osseous abnormality. 2.Moderate osteoarthritis of both hips. 3.Severe diffuse pelvic and trochanteric enthesopathy. 4.Dilated small bowel loops in the central abdomen. Correlate for ileus or obstruction. Electronically Signed: Homero Perez MD 07/15/2025 12:01 AM EDT Workstation ID: [id number] XR Tibia Fibula 2 View Left Result Date: 07/15/2025 XR FEMUR 2 VW LEFT XR TIBIA FIBULA 2 VW LEFT XR HIPS BILATERAL W OR WO PELVIS 5 VIEW Date of Exam: 2025 11:03 PM EDT Indication: fall, LLE pain/weakness, eval fxr and metastasis. Comparison: None available. Findings: The bony pelvis appears intact without fracture. There is severe diffuse pelvic and trochanteric enthesopathy. Mild symmetric SI joint degeneration. Pubic symphysis and obturato r rings appear intact. There is minimal lumbar spondylosis. There are dilated small bowel loops in the central abdomen measuring up to 3.6 cm diameter. There is also mild colonic fecal retention. There is moderate osteoarthritis of both hips. No evidence of hip fracture or dislocation. The mid and distal left femur appears intact without fracture. There is minimal degenerative change at the knee.The bones are diffusely demineralized. The left tibia and fibula appear intact without fracture or dislocation. Joint spaces at the knee and ankle appear well-maintained. Impression: 1.No acute osseous abnormality. 2.Moderate osteoarthritis of both hips. 3.Severe diffuse pelvic and trochanteric enthesopathy. 4.Dilated small bowel loops in the central abdomen. Correlate for ileus or obstruction. Electronically Signed: Homero Perez MD 07/15/2025 12:01 AM EDT Workstation ID: [id number] XR Chest 1 View Result Date: 2025 XR CHEST 1 VW Date of Exam: 2025 11:02 PM EDT Indication: fall. Comparison: Chest CT 06/10/2025. Findings: Stable right chest port. There is no pneumothorax, pleural effusion or focal airspace consolidation. Heart size and pulmonary vasculature appear within normal limits. Stable destructive lytic lesion noted at the right second rib. No acute osseous abnormality. Impression: 1.No acute cardiopulmonary abnormality. 2.Stable destructive lytic lesion at the right second rib. Electronically Signed: Homero Perez MD 2025 11:58 PM EDT Workstation ID: [id number] MRI Brain With & Without Contrast Result Date: 2025 MRI BRAIN W WO CONTRAST Date of Exam: 2025 11:14 PM EDT Indication: fall, LLE pain/weakness, eval fxr and metastasis. Comparison: Head CT 2025. Technique: Routine multiplanar/multisequence sequence images of the brain were obtained before and after the uneventful administration of Vueway. Findings: There is no diffusion restriction to suggest an acute infarct. Midline structures appear intact. Calvarial and superficial soft tissue signal is within normal limits. The temporomandibular joints and parotid glands appear symmetric. Dentition appears unremarkable. There are multiple enlarging intracranial metastasis. This includes a nodular metastasis that appears dural based in the anterior right frontal region on postcontrast 3D T1 axial image 107 measuring 10 mm with an adjacent nodular component laterally measuring 5 mm. Enlarging right frontal periventricular metastasis measuring 6 mm on image 113 of the same series. There is progressive nodular enhancement within the superior left of midline cerebellum on axial image 52 measuring 7 mm diameter. Enlarging right occipital metastasis measuring 13 mm on image 64. Enlarging left cerebellar metastasis measuring up to 18 mm diameter on image 43. Progressive enhancement in the lateral right cerebellum measuring 9 mm on image46. Paramedian right cerebellar metastasis measuring 10 mm on image 32 is also progressive. No defin ite new metastatic lesions. There is increased edema associated with the left cerebellar lesion resulting in mild mass effect without midline shift or ventricular effacement. There is stable edema signal within the brain matter at the right occipital metastasis. There is otherwise stable mild chronic small vessel ischemic change. There is no herniation. No evidence of acute or chronic intracranial hemorrhage. No diffusion restriction to suggest acute infarct. Orbits are symmetric. There is leftfrontal sinus mucosal disease and there is a left mastoid effusion. The major arterial flow voids appear intact. There is abnormal high T2 signal within the central cervical spinal cord at the level of the dens, which is seen on the last few images. This does raise concern for a more distal cord metastasis or compression. Recommend cervical MRI with IV contrast. Impression: 1.Multiple enlarging intracranial metastasis. There is increased edema associated with the left cerebellar metastasis resulting in mild mass effect without midline shift or ventricular effacement. 2.Abnormal high T2 signal within the central cervical spinal cord at the level of the dens. This does raise concern for a more distal cord metastasis or compression. Recommend cervical MRI with IV contrast. 3.Stable mild chronic small vessel ischemic change. 4.Left frontal sinus mucosal disease and left mastoid effusion. Electronically Signed: Homero Perez MD 2025 11:45 PM EDT Workstation ID: [id number] CT Head Without Contrast Result Date: 2025 CT HEAD WO CONTRAST, CT LUMBAR SPINE WO CONTRAST, CT THORACIC SPINE WO CONTRAST, CT CERVICAL SPINE WO CONTRAST Date of Exam: 2025 9:24 PM EDT Indication: fall, LLE pain/weakness, eval fxr and metastasis. Comparison: Brain MRI 06/10/2025, CT chest abdomen pelvis 06/10/2025, CT soft tissue neck 11/27/2024 Technique: Axial CT images were obtained of the head and total spine without contrast administration. Automated exposure control and iterative construction methods were used. Findings: Head CT: Vague hypodensity in the right occipital lobe and left cerebellar hemisphere unchanged from priorMRI. These are in keeping with known intracranial metastases. Negative for large territory infarct,acute intracranial hemorrhage, midline shift or hydrocephalus. Mild periventricular hypodensity favoring sequelae of chronic microvascular ischemic change. No large extra-axial fluid collection. Orbits are symmetric. No obstructive sinus disease. No large mastoid effusion. No aggressive bone lesion or displaced fracture. Cervical spine: Osseous metastases without significant change from prior CT neck comparison. No visualized displaced fracture, vertebral body height loss or malalignment. Minimal degenerative disc disease. Overall mild facet arthropathy. Negative for high-grade central spinalcanal stenosis. Severe right neuroforaminal stenosis C3-C4 similar to prior, other show low-grade stenosis. Similar heterogeneous enlargement of the right thyroid gland outpatient thyroid ultrasound could be considered. Partially imaged right IJ central catheter. No suspicious adenopathy in the neck. Thoracic spine: Heterogeneous mixed lucent and sclerotic metastases without significant change from prior exam. Mild chronic superior endplate height loss of T1 and T10. There is multilevel degenerative change without high-grade central spinal canal stenosis. Severe neuroforaminal stenosis on theleft at T10-T11 and T11-T12 similar to prior exam. Heterogeneous more expansile rib lesions noted most significant involving the second, right posterior ninth and right posterior 12th ribs. Few chronic appearing nondisplaced rib fractures stable from prior pulse representing prior pathologic fractures. Right IJ central catheter terminates near the cavoatrial junction. No suspicious mediastinal orhilar adenopathy. Few pulmonary nodules measuring up to 6 mm left upper lobe image 54 series 2 uncha nged from 06/10/2025 CT comparison. Splenomegaly measuring up to 13 cm in maximum AP dimension without significant change from prior exam. Lumbar spine: Mixed lucent and sclerotic metastases without significant change from prior exam. Suspect old pathologic fracture with bony retropulsion at L4 by up to 4 mm image 33 series 5 unchanged from 06/10/2025 CT comparison. This may result in high- grade central spinal canal stenosis similar to prior exam. No visualized displaced acute fracture, vertebralbody height loss or traumatic malalignment of the lumbar spine. Multilevel degenerative disc disease and facet arthropathy with probably mild to moderate central spinal canal stenosis L2-L3 and L3-L4. Varying degrees of neuroforaminal stenosis up to moderate severity bilaterally L3-L4, severe rightmoderate to severe left L4-L5 and moderate bilateral L5-S1 probably similar to prior comparison. Novisualized retroperitoneal adenopathy. Few nonobstructing renal calculi largest in the left inferior pole measuring up to 1.3 cm unchanged from prior exam. Impression: 1. Grossly stable mixed lucent and sclerotic osseous metastases detailed above comparedto prior CT imaging comparisons. No new suspicious pathologic fracture. 2. Similar-appearing probable old pathologic fracture at L4 with bony retropulsion resulting in possible high-grade central spinal canal stenosis. This could be assessed by MRI as clinically indicated. 3. Similar hypodense lesions in the right occipital lobe and left cerebellum, in keeping with intracranial metastases noted on prior contrasted MRI comparisons. 4. Stable small pulmonary nodules. Stable splenomegaly. No enlarging adenopathy to suggest disease progression. 5. Other chronic/ancillary findings as above. Electronically Signed: Galen Hawley MD 2025 10:10 PM EDT Workstation ID: [id number] CT Cervical Spine Without Contrast Result Date: 2025 CT HEAD WO CONTRAST, CT LUMBAR SPINE WO CONTRAST, CT THORACIC SPINE WO CONTRAST, CT CERVICAL SPINE WO CONTRAST Date of Exam: 2025 9:24 PM EDT Indication: fall, LLE pain/weakness, eval fxr and metastasis. Comparison: Brain MRI 06/10/2025, CT chest abdomen pelvis 06/10/2025, CT soft tissue neck 11/27/2024 Technique: Axial CT images were obtained of the head and total spine without contrast administration. Automated exposure control and iterative construction methods were used. Findings: Head CT: Vague hypodensity in the right occipital lobe and left cerebellar hemisphere unchanged from priorMRI. These are in keeping with known intracranial metastases. Negative for large territory infarct,acute intracranial hemorrhage, midline shift or hydrocephalus. Mild periventricular hypodensity favoring sequelae of chronic microvascular ischemic change. No large extra-axial fluid collection. Orbits are symmetric. No obstructive sinus disease. No large mastoid effusion. No aggressive bone lesion or displaced fracture. Cervical spine: Osseous metastases without significant change from prior CT neck comparison. No visualized displaced fracture, vertebral body height loss or malalignment. Minimal degenerative disc disease. Overall mild facet arthropathy. Negative for high-grade central spinalcanal stenosis. Severe right neuroforaminal stenosis C3-C4 similar to prior, other show low-grade stenosis. Similar heterogeneous enlargement of the right thyroid gland outpatient thyroid ultrasound could be considered. Partially imaged right IJ central catheter. No suspicious adenopathy in the neck. Thoracic spine: Heterogeneous mixed lucent and sclerotic metastases without significant change from prior exam. Mild chronic superior endplate height loss of T1 and T10. There is multilevel degenerative change without high-grade central spinal canal stenosis. Severe neuroforaminal stenosis on theleft at T10-T11 and T11-T12 similar to prior exam. Heterogeneous more expansile rib lesions noted most significant involving the second, right posterior ninth and right posterior 12th ribs. Few chronic appearing nondisplaced rib fractures stable from prior pulse representing prior pathologic fractures. Right IJ central catheter terminates near the cavoatrial junction. No suspicious mediastinal orhilar adenopathy. Few pulmonary nodules measuring up to 6 mm left upper lobe image 54 series 2 uncha nged from 06/10/2025 CT comparison. Splenomegaly measuring up to 13 cm in maximum AP dimension without significant change from prior exam. Lumbar spine: Mixed lucent and sclerotic metastases without significant change from prior exam. Suspect old pathologic fracture with bony retropulsion at L4 by up to 4 mm image 33 series 5 unchanged from 06/10/2025 CT comparison. This may result in high- grade central spinal canal stenosis similar to prior exam. No visualized displaced acute fracture, vertebralbody height loss or traumatic malalignment of the lumbar spine. Multilevel degenerative disc disease and facet arthropathy with probably mild to moderate central spinal canal stenosis L2-L3 and L3-L4. Varying degrees of neuroforaminal stenosis up to moderate severity bilaterally L3-L4, severe rightmoderate to severe left L4-L5 and moderate bilateral L5-S1 probably similar to prior comparison. Novisualized retroperitoneal adenopathy. Few nonobstructing renal calculi largest in the left inferior pole measuring up to 1.3 cm unchanged from prior exam. Impression: 1. Grossly stable mixed lucent and sclerotic osseous metastases detailed above comparedto prior CT imaging comparisons. No new suspicious pathologic fracture. 2. Similar-appearing probable old pathologic fracture at L4 with bony retropulsion resulting in possible high-grade central spinal canal stenosis. This could be assessed by MRI as clinically indicated. 3. Similar hypodense lesions in the right occipital lobe and left cerebellum, in keeping with intracranial metastases noted on prior contrasted MRI comparisons. 4. Stable small pulmonary nodules. Stable splenomegaly. No enlarging adenopathy to suggest disease progression. 5. Other chronic/ancillary findings as above. Electronically Signed: Galen Hawley MD 2025 10:10 PM EDT Workstation ID: [id number] CT Thoracic Spine Without Contrast Result Date: 2025 CT HEAD WO CONTRAST, CT LUMBAR SPINE WO CONTRAST, CT THORACIC SPINE WO CONTRAST, CT CERVICAL SPINE WO CONTRAST Date of Exam: 2025 9:24 PM EDT Indication: fall, LLE pain/weakness, eval fxr and metastasis. Comparison: Brain MRI 06/10/2025, CT chest abdomen pelvis 06/10/2025, CT soft tissue neck 11/27/2024 Technique: Axial CT images were obtained of the head and total spine without contrast administration. Automated exposure control and iterative construction methods were used. Findings: Head CT: Vague hypodensity in the right occipital lobe and left cerebellar hemisphere unchanged from priorMRI. These are in keeping with known intracranial metastases. Negative for large territory infarct,acute intracranial hemorrhage, midline shift or hydrocephalus. Mild periventricular hypodensity favoring sequelae of chronic microvascular ischemic change. No large extra-axial fluid collection. Orbits are symmetric. No obstructive sinus disease. No large mastoid effusion. No aggressive bone lesion or displaced fracture. Cervical spine: Osseous metastases without significant change from prior CT neck comparison. No visualized displaced fracture, vertebral body height loss or malalignment. Minimal degenerative disc disease. Overall mild facet arthropathy. Negative for high-grade central spinalcanal stenosis. Severe right neuroforaminal stenosis C3-C4 similar to prior, other show low-grade stenosis. Similar heterogeneous enlargement of the right thyroid gland outpatient thyroid ultrasound could be considered. Partially imaged right IJ central catheter. No suspicious adenopathy in the neck. Thoracic spine: Heterogeneous mixed lucent and sclerotic metastases without significant change from prior exam. Mild chronic superior endplate height loss of T1 and T10. There is multilevel degenerative change without high-grade central spinal canal stenosis. Severe neuroforaminal stenosis on theleft at T10-T11 and T11-T12 similar to prior exam. Heterogeneous more expansile rib lesions noted most significant involving the second, right posterior ninth and right posterior 12th ribs. Few chronic appearing nondisplaced rib fractures stable from prior pulse representing prior pathologic fractures. Right IJ central catheter terminates near the cavoatrial junction. No suspicious mediastinal orhilar adenopathy. Few pulmonary nodules measuring up to 6 mm left upper lobe image 54 series 2 uncha nged from 06/10/2025 CT comparison. Splenomegaly measuring up to 13 cm in maximum AP dimension without significant change from prior exam. Lumbar spine: Mixed lucent and sclerotic metastases without significant change from prior exam. Suspect old pathologic fracture with bony retropulsion at L4 by up to 4 mm image 33 series 5 unchanged from 06/10/2025 CT comparison. This may result in high- grade central spinal canal stenosis similar to prior exam. No visualized displaced acute fracture, vertebralbody height loss or traumatic malalignment of the lumbar spine. Multilevel degenerative disc disease and facet arthropathy with probably mild to moderate central spinal canal stenosis L2-L3 and L3-L4. Varying degrees of neuroforaminal stenosis up to moderate severity bilaterally L3-L4, severe rightmoderate to severe left L4-L5 and moderate bilateral L5-S1 probably similar to prior comparison. Novisualized retroperitoneal adenopathy. Few nonobstructing renal calculi largest in the left inferior pole measuring up to 1.3 cm unchanged from prior exam. Impression: 1. Grossly stable mixed lucent and sclerotic osseous metastases detailed above comparedto prior CT imaging comparisons. No new suspicious pathologic fracture. 2. Similar-appearing probable old pathologic fracture at L4 with bony retropulsion resulting in possible high-grade central spinal canal stenosis. This could be assessed by MRI as clinically indicated. 3. Similar hypodense lesions in the right occipital lobe and left cerebellum, in keeping with intracranial metastases noted on prior contrasted MRI comparisons. 4. Stable small pulmonary nodules. Stable splenomegaly. No enlarging adenopathy to suggest disease progression. 5. Other chronic/ancillary findings as above. Electronically Signed: Galen Hawley MD 2025 10:10 PM EDT Workstation ID: [id number] CT Lumbar Spine Without Contrast Result Date: 2025 CT HEAD WO CONTRAST, CT LUMBAR SPINE WO CONTRAST, CT THORACIC SPINE WO CONTRAST, CT CERVICAL SPINE WO CONTRAST Date of Exam: 2025 9:24 PM EDT Indication: fall, LLE pain/weakness, eval fxr and metastasis. Comparison: Brain MRI 06/10/2025, CT chest abdomen pelvis 06/10/2025, CT soft tissue neck 11/27/2024 Technique: Axial CT images were obtained of the head and total spine without contrast administration. Automated exposure control and iterative construction methods were used. Findings: Head CT: Vague hypodensity in the right occipital lobe and left cerebellar hemisphere unchanged from priorMRI. These are in keeping with known intracranial metastases. Negative for large territory infarct,acute intracranial hemorrhage, midline shift or hydrocephalus. Mild periventricular hypodensity favoring sequelae of chronic microvascular ischemic change. No large extra-axial fluid collection. Orbits are symmetric. No obstructive sinus disease. No large mastoid effusion. No aggressive bone lesion or displaced fracture. Cervical spine: Osseous metastases without significant change from prior CT neck comparison. No visualized displaced fracture, vertebral body height loss or malalignment. Minimal degenerative disc disease. Overall mild facet arthropathy. Negative for high-grade central spinalcanal stenosis. Severe right neuroforaminal stenosis C3-C4 similar to prior, other show low-grade stenosis. Similar heterogeneous enlargement of the right thyroid gland outpatient thyroid ultrasound could be considered. Partially imaged right IJ central catheter. No suspicious adenopathy in the neck. Thoracic spine: Heterogeneous mixed lucent and sclerotic metastases without significant change from prior exam. Mild chronic superior endplate height loss of T1 and T10. There is multilevel degenerative change without high-grade central spinal canal stenosis. Severe neuroforaminal stenosis on theleft at T10-T11 and T11-T12 similar to prior exam. Heterogeneous more expansile rib lesions noted most significant involving the second, right posterior ninth and right posterior 12th ribs. Few chronic appearing nondisplaced rib fractures stable from prior pulse representing prior pathologic fractures. Right IJ central catheter terminates near the cavoatrial junction. No suspicious mediastinal orhilar adenopathy. Few pulmonary nodules measuring up to 6 mm left upper lobe image 54 series 2 uncha nged from 06/10/2025 CT comparison. Splenomegaly measuring up to 13 cm in maximum AP dimension without significant change from prior exam. Lumbar spine: Mixed lucent and sclerotic metastases without significant change from prior exam. Suspect old pathologic fracture with bony retropulsion at L4 by up to 4 mm image 33 series 5 unchanged from 06/10/2025 CT comparison. This may result in high- grade central spinal canal stenosis similar to prior exam. No visualized displaced acute fracture, vertebralbody height loss or traumatic malalignment of the lumbar spine. Multilevel degenerative disc disease and facet arthropathy with probably mild to moderate central spinal canal stenosis L2-L3 and L3-L4. Varying degrees of neuroforaminal stenosis up to moderate severity bilaterally L3-L4, severe rightmoderate to severe left L4-L5 and moderate bilateral L5-S1 probably similar to prior comparison. Novisualized retroperitoneal adenopathy. Few nonobstructing renal calculi largest in the left inferior pole measuring up to 1.3 cm unchanged from prior exam. Impression: 1. Grossly stable mixed lucent and sclerotic osseous metastases detailed above comparedto prior CT imaging comparisons. No new suspicious pathologic fracture. 2. Similar-appearing probable old pathologic fracture at L4 with bony retropulsion resulting in possible high-grade central spinal canal stenosis. This could be assessed by MRI as clinically indicated. 3. Similar hypodense lesions in the right occipital lobe and left cerebellum, in keeping with intracranial metastases noted on prior contrasted MRI comparisons. 4. Stable small pulmonary nodules. Stable splenomegaly. No enlarging adenopathy to suggest disease progression. 5. Other chronic/ancillary findings as above. Electronically Signed: Galen Hawley MD 2025 10:10 PM EDT Workstation ID: [id number] ASSESSMENT/PLAN: 1. 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 Systemically our options are limited to rechallenging her with Tucatinib with Herceptin and Xeloda versus putting her back on Enhertu to see if she would have a response again. She needs neurosurgery and radiation medicine to weigh in regarding the best approach for T12 which is the primary concern that I have at the moment. She has room for whole brain radiation to be considered. I will likely rechallenge her with Enhertu since it does have some WATER RECLAMATION SYSTEMS OPERATOR penetration especially in patients with extensive disease. She is not very symptomatic from the WATER RECLAMATION SYSTEMS OPERATOR metastases so that may be a good place to start if possible. However I think she also needs radiation going forward. Our options otherwise are fairly limited to cover her brain adequately. I had that discussion with her today andshe understands that. Valentina Sadler MD 07/15/2025 [1] No Known Allergies [2] Current Facility-Administered Medications: ALPRAZolam (XANAX) tablet 0.5 mg, 0.5 mg, Oral, Q8H PRN, Meaghan Guerrier MD, 0.5 mg at 07/15/25 0317 aluminum-magnesium hydroxide-simethicone (MAALOX MAX) 400-400-40 MG/5ML suspension 15 mL, 15 mL, Oral, Q6H PRN, Meaghan Guerrier MD sennosides-docusate (PERICOLACE) 8.6-50 MG per tablet 2 tablet, 2 tablet, Oral, BID PRN AND polyethylene glycol (MIRALAX) packet 17 g, 17 g, Oral, Daily PRN AND bisacodyl (DULCOLAX) EC tablet5 mg, 5 mg, Oral, Daily PRN AND bisacodyl (DULCOLAX) suppository 10 mg, 10 mg, Rectal, Daily PRN, Meaghan Guerrier MD Calcium Replacement - Follow Nurse / BPA Driven Protocol, , Not Applicable, PRN, Meaghan Guerrier MD dexAMETHasone (DECADRON) injection 6 mg, 6 mg, Intravenous, Q6H, Meaghan Guerrier MD, 6 mg at 07/15/25 0553 dextrose (D50W) (25 g/50 mL) IV injection 25 g, 25 g, Intravenous, Q15 Min PRN, Meaghan Guerrier MD dextrose (GLUTOSE) oral gel 15 g, 15 g, Oral, Q15 Min PRN, Meaghan Guerrier MD famotidine (PEPCID) tablet 40 mg, 40 mg, Oral, Daily, Meaghan Guerrier MD, 40 mg at 07/15/25 0834 glucagon (GLUCAGEN) injection 1 mg, 1 mg, Intramuscular, Q15 Min PRN, Meaghan Guerrier MD HYDROcodone-acetaminophen (NORCO) 7.5-325 MG per tablet 1 tablet, 1 tablet, Oral, Q6H PRN, Meaghan Guerrier MD insulin regular (humuLIN R,novoLIN R) injection 2-7 Units, 2-7 Units, Subcutaneous, Q6H, Meaghan Guerrier MD Lidocaine 4 % 1 patch, 1 patch, Transdermal, Once, Carson Colvin MD, 1 patch at 07/14/25 2158 Magnesium Cardiology Dose Replacement - Follow Nurse / BPA Driven Protocol, , Not Applicable, PRN, Meaghan Guerrier MD morphine injection 2 mg, 2 mg, Intravenous, Q4H PRN AND naloxone (NARCAN) injection 0.4 mg, 0.4mg, Intravenous, Q5 Min PRN, Meaghan Guerrier MD nitroglycerin (NITROSTAT) SL tablet 0.4 mg, 0.4 mg, Sublingual, Q5 Min PRN, Meaghan Guerrier MD ondansetron (ZOFRAN) injection 4 mg, 4 mg, Intravenous, Q6H PRN, Meaghan Guerrier MD Phosphorus Replacement - Follow Nurse / BPA Driven Protocol, , Not Applicable, PRN, Meaghan Guerrier MD Potassium Replacement - Follow Nurse / BPA Driven Protocol, , Not Applicable, PRYecenia, Meaghan Guerrier MD pregabalin (LYRICA) capsule 75 mg, 75 mg, Oral, Daily, Meaghan Guerrier MD, 75 mg at 07/15/25 0834 sodium chloride 0.9 % flush 10 mL, 10 mL, Intravenous, Q12H, Meaghan Guerrier MD sodium chloride 0.9 % flush 10 mL, 10 mL, Intravenous, PRN, Meaghan Guerrier MD sodium chloride 0.9 % infusion 40 mL, 40 mL, Intravenous, PRN, Meaghan Guerrier MD sodium chloride 0.9 % infusion, 75 mL/hr, Intravenous, Continuous, Meaghan Guerrier MD, Last Rate:75 mL/hr at 07/15/25 0317, 75 mL/hr at 07/15/25 0317 [3] Social History Socioeconomic History Marital status: Tobacco Use Smoking status: Never Smokeless tobacco: Never Vaping Use Vaping status: Never Used Substance and Sexual Activity Alcohol use: Not Currently Drug use: No Sexual activity: Defer Partners: Male Comment: documented in this encounter Nursing Notes * Korin Arndt RN - 07/27/2025 4:44 PM EDT Goal Outcome Evaluation: Outcome Evaluation: A&Ox4 and VSS on RA. Patient discharged home with sisters. Meds to bed delivered to pt * Lashonda Vásquez RN - 07/27/2025 4:39 AM EDT Goal Outcome Evaluation: Progress: no change No significant events overnight. Patient rested well between care. Call light within reach * Sorin Noble RN - 07/26/2025 4:36 PM EDT Goal Outcome Evaluation: Pt is alert and oriented x 4. VSS on RA. No complaints of pain. Voiding via purewick. BM today. Pt attempted to ambulate this a.m. to bathroom with 2x assist with gait belt and walker due to gait being unsteady pt had to be taken to the bathroom via wheelchair. Has remained in chair majority of shift, worked with PT/OT. Family at bedside, call light in reach. Problem: Adult Inpatient Plan of Care Goal: Absence of Hospital-Acquired Illness or Injury Intervention: Identify and Manage Fall Risk Recent Flowsheet Documentation Taken 07/26/2025 1600 by Sorin Noble RN Safety Promotion/Fall Prevention: activity supervised clutter free environment maintained assistive device/personal items within reach elopement precautions fall prevention program maintained gait belt mobility aid in reach nonskid shoes/slippers when out of bed muscle strengthening facilitated lighting adjusted room organization consistent safety round/check completed toileting scheduled Taken 07/26/2025 1407 by Sorin Noble RN Safety Promotion/Fall Prevention: activity supervised assistive device/personal items within reach clutter free environment maintained fall prevention program maintained elopement precautions mobility aid in reach gait belt lighting adjusted muscle strengthening facilitated nonskid shoes/slippers when out of bed room organization consistent safety round/check completed toileting scheduled Taken 07/26/2025 1200 by Sorin Noble RN Safety Promotion/Fall Prevention: activity supervised assistive device/personal items within reach clutter free environment maintained elopement precautions fall prevention program maintained gait belt lighting adjusted mobility aid in reach nonskid shoes/slippers when out of bed muscle strengthening facilitated safety round/check completed toileting scheduled room organization consistent Taken 07/26/2025 1040 by Sorin Noble RN Safety Promotion/Fall Prevention: activity supervised assistive device/personal items within reach clutter free environment maintained elopement precautions fall prevention program maintained gait belt lighting adjusted muscle strengthening facilitated mobility aid in reach nonskid shoes/slippers when out of bed room organization consistent safety round/check completed toileting scheduled Taken 07/26/2025 0827 by Sorin Noble, DERRICK Safety Promotion/Fall Prevention: activity supervised assistive device/personal items within reach clutter free environment maintained elopement precautions fall prevention program maintained gait belt lighting adjusted mobility aid in reach muscle strengthening facilitated nonskid shoes/slippers when out of bed room organization consistent safety round/check completed toileting scheduled * Shannon Etienne RN - 07/26/2025 3:20 PM EDT Goal Outcome Evaluation: Inpatient Palliative RN visit to bedside. Pt was up in recliner, several visitors at bedside. Pt denies pain, nausea, breathing difficulties. Reports that she is due to go home tomorrow. She asked ifshe was going to have prescriptions for discharge tomorrow and this nurse assured pt that we will make sure she has everything she needs prior to discharge. Palliative will continue to follow. 929 Palliative IDT meeting: MD, INSTRUCTOR INDUSTRIAL DESIGN, RNs, MDIV, HEEL BREASTER Problem: Palliative Care Goal: Enhanced Quality of Life Outcome: Progressing * Krysten Sexton, PT - 07/26/2025 2:50 PM EDT Goal Outcome Evaluation: Plan of Care Reviewed With: patient, family Progress: no change Outcome Evaluation: Pt continues to present below her functional baseline with weakness, impaired balance, and decreased endurance. She ambulated 15'+15' with min A and RW. L knee buckling noted withfatigue. Education provided to pt and family on risk for falls and home safety strategies if pt defers rehab. Further IPPT is warranted. Continue to rec d/c to SNF. Anticipated Discharge Disposition (PT): nursing home facility * Summer Junior OT - 07/26/2025 2:30 PM EDT Goal Outcome Evaluation: Plan of Care Reviewed With: patient Progress: no change Outcome Evaluation: Patient continues to be below her functional baseline requiring assist w/ mobility and transfers. Simulated home set up with functional transfers fro family and patient this session. Continue to progress as able per current POC. Anticipated Discharge Disposition (OT): nursing home facility * Mireya Landers RN - 07/26/2025 5:09 AM EDT Problem: Adult Inpatient Plan of Care Goal: Plan of Care Review Outcome: Progressing Flowsheets (Taken 07/26/2025 0507) Progress: no change Outcome Evaluation: Pt remains stable throughout the night. VSS, on RA. Pt is alert and oriented x4. Voiding spontaneously via purewick. Turned q.2. PO PRN pain medication given for pain controlled. Rested on and off throughout the night. Continue plan of care, call light within reach, bed alarm set. Plan of Care Reviewed With: patient Goal: Patient-Specific Goal (Individualized) Outcome: Progressing Goal: Absence of Hospital-Acquired Illness or Injury Outcome: Progressing Intervention: Identify and Manage Fall Risk Recent Flowsheet Documentation Taken 07/26/2025 0400 by Mireya Landers RN Safety Promotion/Fall Prevention: activity supervised assistive device/personal items within reach clutter free environment maintained safety round/check completed nonskid shoes/slippers when out of bed Taken 07/26/2025 0214 by Mireya Landers RN Safety Promotion/Fall Prevention: activity supervised assistive device/personal items within reach clutter free environment maintained safety round/check completed nonskid shoes/slippers when out of bed Taken 07/26/2025 0044 by Mireya Landers RN Safety Promotion/Fall Prevention: activity supervised assistive device/personal items within reach clutter free environment maintained safety round/check completed nonskid shoes/slippers when out of bed Taken 07/25/2025 2200 by Mireya Landers RN Safety Promotion/Fall Prevention: activity supervised assistive device/personal items within reach clutter free environment maintained safety round/check completed nonskid shoes/slippers when out of bed Taken 07/25/20252129 by Mireya Landers RN Safety Promotion/Fall Prevention: activity supervised assistive device/personal items within reach clutter free environment maintained safety round/check completed nonskid shoes/slippers when out of bed Taken 07/25/20251999 by Mireya Landers RN Safety Promotion/Fall Prevention: activity supervised assistive device/personal items within reach clutter free environment maintained safety round/check completed nonskid shoes/slippers when out of bed Intervention: Prevent Skin Injury Recent Flowsheet Documentation Taken 07/26/2025399 by Mireya Landers RN Body Position: position maintained Skin Protection: incontinence pads utilized silicone border foam - sacrum/coccyx Taken 07/26/2025 021 by Mireya Landers RN Body Position: position maintained Skin Protection: incontinence pads utilized silicone border foam - sacrum/coccyx Taken 07/26/202543 by Mireya Landers RN Body Position: supine Skin Protection: incontinence pads utilized silicone border foam - sacrum/coccyx Taken 07/25/20252199 by Mireya Landers RN Body Position: position maintained Skin Protection: incontinence pads utilized silicone border foam - sacrum/coccyx Taken 07/25/20252129 by Mireya Landers RN Skin Protection: incontinence pads utilized silicone border foam - sacrum/coccyx Taken 07/25/20251999 by Mireya Landers RN Body Position: neutral body alignment neutral head position Skin Protection: incontinence pads utilized silicone border foam - sacrum/coccyx Intervention: Prevent and Manage VTE (Venous Thromboembolism) Risk Recent Flowsheet Documentation Taken 07/26/2025399 by Mireya Landers RN VTE Prevention/Management: (heparin) other (see comments) Taken 07/26/202543 by Mireya Landers RN VTE Prevention/Management: (heparin) other (see comments) Taken 07/25/20252199 by Mireya Landers RN VTE Prevention/Management: (heparin) other (see comments) Taken 07/25/20252129 by Mireya Landers RN VTE Prevention/Management: (heparin) other (see comments) Intervention: Prevent Infection Recent Flowsheet Documentation Taken 07/26/2025 0400 by Mireya Landers RN Infection Prevention: environmental surveillance performed Taken 07/26/2025213 by Mireya Landers RN Infection Prevention: environmental surveillance performed Taken 07/26/2025 0044 by Mireya Landers RN Infection Prevention: environmental surveillance performed Taken 07/25/20252199 by Mireya Landers RN Infection Prevention: environmental surveillance performed Taken 07/25/20252129 by Mireya Landers RN Infection Prevention: environmental surveillance performed Taken 07/25/20251999 by Miryea Landers RN Infection Prevention: environmental surveillance performed Goal: Optimal Comfort and Wellbeing Outcome: Progressing Intervention: Monitor Pain and Promote Comfort Recent Flowsheet Documentation Taken 07/26/2025213 by Mireya Landers RN Pain Management Interventions: pain medication given Intervention: Provide Person-Centered Care Recent Flowsheet Documentation Taken 07/26/2025213 by Mireya Landers RN Trust Relationship/Rapport: care explained questions answered Taken 07/25/20252129 by Mireya Landers RN Trust Relationship/Rapport: care explained questions answered Goal: Readiness for Transition of Care Outcome: Progressing Problem: Fall Injury Risk Goal: Absence of Fall and Fall-Related Injury Outcome: Progressing Intervention: Promote Injury-Free Environment Recent Flowsheet Documentation Taken 07/26/2025399 by Mireya Landers RN Safety Promotion/Fall Prevention: activity supervised assistive device/personal items within reach clutter free environment maintained safety round/check completed nonskid shoes/slippers when out of bed Taken 07/26/2025213 by Mireya Landers RN Safety Promotion/Fall Prevention: activity supervised assistive device/personal items within reach clutter free environment maintained safety round/check completed nonskid shoes/slippers when out of bed Taken 07/26/2025 0044 by Mireya Landers RN Safety Promotion/Fall Prevention: activity supervised assistive device/personal items within reach clutter free environment maintained safety round/check completed nonskid shoes/slippers when out of bed Taken 07/25/20252199 by Mireya Landers RN Safety Promotion/Fall Prevention: activity supervised assistive device/personal items within reach clutter free environment maintained safety round/check completed nonskid shoes/slippers when out of bed Taken 07/25/20252129 by Mireya Landers RN Safety Promotion/Fall Prevention: activity supervised assistive device/personal items within reach clutter free environment maintained safety round/check completed nonskid shoes/slippers when out of bed Taken 07/25/20251999 by Mireya Landers RN Safety Promotion/Fall Prevention: activity supervised assistive device/personal items within reach clutter free environment maintained safety round/check completed nonskid shoes/slippers when out of bed Problem: Mobility Impairment Goal: Optimal Mobility Outcome: Progressing Intervention: Optimize Mobility Recent Flowsheet Documentation Taken 07/26/2025 0400 by Mireya Landers RN Activity Management: activity encouraged Assistive Device Utilized: gait belt walker Positioning/Transfer Devices: pillows in use Taken 07/26/2025 021 by Mireya Landers RN Activity Management: activity encouraged Assistive Device Utilized: gait belt walker Positioning/Transfer Devices: pillows in use Taken 07/26/2025 004 by Mireya Landers RN Activity Management: activity encouraged Assistive Device Utilized: gait belt walker Positioning/Transfer Devices: pillows in use Taken 07/25/20252199 by Mireya Landers RN Activity Management: activity encouraged Assistive Device Utilized: gait belt walker Positioning/Transfer Devices: pillows in use Taken 07/25/20252129 by Mireya Landers RN Activity Management: activity encouraged Assistive Device Utilized: gait belt walker Positioning/Transfer Devices: pillows in use Taken 07/25/20251999 by Mireya Landers RN Activity Management: activity encouraged Assistive Device Utilized: gait belt walker Positioning/Transfer Devices: pillows in use Problem: Pain Acute Goal: Optimal Pain Control and Function Outcome: Progressing Intervention: Optimize Psychosocial Wellbeing Recent Flowsheet Documentation Taken 07/26/2025 021 by Mireya Landers RN Supportive Measures: active listening utilized Taken 07/26/202543 by Mireya Landers RN Supportive Measures: active listening utilized Taken 07/25/20252199 by Mireya Landers RN Supportive Measures: active listening utilized Taken 07/25/20252129 by Mireya Landers RN Supportive Measures: active listening utilized Diversional Activities: television Intervention: Develop Pain Management Plan Recent Flowsheet Documentation Taken 07/26/2025213 by Mireya Landers RN Pain Management Interventions: pain medication given Intervention: Prevent or Manage Pain Recent Flowsheet Documentation Taken 07/26/2025399 by Mireya Landers RN Sensory Stimulation Regulation: auditory stimulation minimized Sleep/Rest Enhancement: awakenings minimized Taken 07/26/2025213 by Mireya Landers RN Sensory Stimulation Regulation: auditory stimulation minimized Sleep/Rest Enhancement: awakenings minimized Taken 07/26/202543 by Mireya Landers RN Sensory Stimulation Regulation: auditory stimulation minimized Sleep/Rest Enhancement: awakenings minimized Taken 07/25/20252199 by Mireya Landers RN Sensory Stimulation Regulation: auditory stimulation minimized Sleep/Rest Enhancement: awakenings minimized Taken 07/25/20252129 by Mireya Landers RN Sensory Stimulation Regulation: auditory stimulation minimized Sleep/Rest Enhancement: awakenings minimized Taken 07/25/20251999 by Mireya Landers RN Sensory Stimulation Regulation: auditory stimulation minimized Sleep/Rest Enhancement: awakenings minimized Problem: Palliative Care Goal: Enhanced Quality of Life Outcome: Progressing Intervention: Maximize Comfort Recent Flowsheet Documentation Taken 07/26/2025213 by Mireya Landers RN Pain Management Interventions: pain medication given Intervention: Optimize Function Recent Flowsheet Documentation Taken 07/26/2025399 by Mireya Landers RN Sensory Stimulation Regulation: auditory stimulation minimized Sleep/Rest Enhancement: awakenings minimized Taken 07/26/2025213 by Mireya Landers RN Sensory Stimulation Regulation: auditory stimulation minimized Sleep/Rest Enhancement: awakenings minimized Taken 07/26/202543 by Mireya Landers RN Sensory Stimulation Regulation: auditory stimulation minimized Sleep/Rest Enhancement: awakenings minimized Taken 07/25/20252199 by Mireya Landers RN Sensory Stimulation Regulation: auditory stimulation minimized Sleep/Rest Enhancement: awakenings minimized Taken 07/25/20252129 by Mireya Landers RN Sensory Stimulation Regulation: auditory stimulation minimized Sleep/Rest Enhancement: awakenings minimized Taken 07/25/20251999 by Mireya Landers RN Sensory Stimulation Regulation: auditory stimulation minimized Sleep/Rest Enhancement: awakenings minimized Intervention: Optimize Psychosocial Wellbeing Recent Flowsheet Documentation Taken 07/26/2025213 by Mireya Landers RN Supportive Measures: active listening utilized Family/Support System Care: support provided self-care encouraged Taken 07/26/202543 by Mireya Landers RN Supportive Measures: active listening utilized Taken 07/25/20252199 by Mireya Landers RN Supportive Measures: active listening utilized Taken 07/25/20252129 by Mireya Landers RN Supportive Measures: active listening utilized Family/Support System Care: support provided self-care encouraged Problem: Skin Injury Risk Increased Goal: Skin Health and Integrity Outcome: Progressing Intervention: Optimize Skin Protection Recent Flowsheet Documentation Taken 07/26/2025399 by Mireya Landers RN Activity Management: activity encouraged Pressure Reduction Techniques: weight shift assistance provided Head of Bed (HOB) Positioning: [facility] elevated Pressure Reduction Devices: pressure-redistributing mattress utilized Skin Protection: incontinence pads utilized silicone border foam - sacrum/coccyx Taken 07/26/2025213 by Mireya Landers RN Activity Management: activity encouraged Pressure Reduction Techniques: weight shift assistance provided Head of Bed (HOB) Positioning: HOB elevated Pressure Reduction Devices: pressure-redistributing mattress utilized Skin Protection: incontinence pads utilized silicone border foam - sacrum/coccyx Taken 07/26/202543 by Mireya Landers RN Activity Management: activity encouraged Pressure Reduction Techniques: weight shift assistance provided Head of Bed (HOB) Positioning: [facility] elevated Pressure Reduction Devices: pressure-redistributing mattress utilized Skin Protection: incontinence pads utilized silicone border foam - sacrum/coccyx Taken 07/25/20252199 by Mireya Landers RN Activity Management: activity encouraged Pressure Reduction Techniques: weight shift assistance provided Head of Bed ([facility]) Positioning: [facility] elevated Pressure Reduction Devices: pressure-redistributing mattress utilized Skin Protection: incontinence pads utilized silicone border foam - sacrum/coccyx Taken 07/25/20252129 by Mireya Landers RN Activity Management: activity encouraged Pressure Reduction Techniques: frequent weight shift encouraged weight shift assistance provided Head of Bed ([facility]) Positioning: [facility] elevated Pressure Reduction Devices: pressure-redistributing mattress utilized Skin Protection: incontinence pads utilized silicone border foam - sacrum/coccyx Taken 07/25/20251999 by Mireya Landers RN Activity Management: activity encouraged Pressure Reduction Techniques: weight shift assistance provided Head of Bed ([facility]) Positioning: [facility] elevated Pressure Reduction Devices: pressure-redistributing mattress utilized Skin Protection: incontinence pads utilized silicone border foam - sacrum/coccyx Goal Outcome Evaluation: Plan of Care Reviewed With: patient Progress: no change Outcome Evaluation: Pt remains stable throughout the night. VSS, on RA. Pt is alert and oriented x4. Voiding spontaneously via purewick. Turned q.2. PO PRN pain medication given for pain controlled. Rested on and off throughout the night. Continue plan of care, call light within reach, bed alarm set. * Hallie Hall RN - 07/25/2025 7:59 PM EDT Goal Outcome Evaluation: Plan of Care Reviewed With: patient Progress: no change Outcome Evaluation: Ox4, no significant events today, large BM, voiding well, up in chair, VSS, RA * Krysten Garvey PTA - 07/25/2025 8:40 AM EDT Goal Outcome Evaluation: Plan of Care Reviewed With: patient Progress: no change Outcome Evaluation: patient ambulated 30' with min assist x1 and rolling walker for support, did not use K.I this date(no knee buckling noticed) L foot drop with decreased step length on the left, distance limited by weakness and fatigue. Patient would benefit from SNF but has decided to go home with 22/04 assist. * Mireya Landers RN - 07/25/2025 4:30 AM EDT Problem: Adult Inpatient Plan of Care Goal: Plan of Care Review Outcome: Progressing Flowsheets (Taken 07/25/2025 0427) Progress: no change Outcome Evaluation: Pt remains stable throughout the shift. VSS, on RA. Pt is pleasant, alert and oriented x4. Voiding spontaneously via purewick. Pt had small BM during shift. PRN PO pain meds given. Possible d/c and home with family Friday 07/27. Night time blood sugar 425, hospitalist notified,9 units of lispro given. Continue plan of care, call light within reach, bed alarm set. Plan of Care Reviewed With: patient Goal: Patient-Specific Goal (Individualized) Outcome: Progressing Goal: Absence of Hospital-Acquired Illness or Injury Outcome: Progressing Intervention: Identify and Manage Fall Risk Recent Flowsheet Documentation Taken 07/25/2025 0400 by Mireya Landers RN Safety Promotion/Fall Prevention: activity supervised assistive device/personal items within reach clutter free environment maintained safety round/check completed nonskid shoes/slippers when out of bed Taken 07/25/2025 0200 by Mireya Landers RN Safety Promotion/Fall Prevention: activity supervised assistive device/personal items within reach clutter free environment maintained safety round/check completed nonskid shoes/slippers when out of bed Taken 07/25/2025 0000 by Mireya Landers RN Safety Promotion/Fall Prevention: activity supervised assistive device/personal items within reach clutter free environment maintained safety round/check completed nonskid shoes/slippers when out of bed Taken 07/24/20256 by Mireya Landers RN Safety Promotion/Fall Prevention: activity supervised assistive device/personal items within reach clutter free environment maintained safety round/check completed nonskid shoes/slippers when out of bed Taken 07/24/20252024 by Mireya Landers RN Safety Promotion/Fall Prevention: activity supervised assistive device/personal items within reach clutter free environment maintained safety round/check completed nonskid shoes/slippers when out of bed Intervention: Prevent Skin Injury Recent Flowsheet Documentation Taken 07/25/2025 0400 by Mireya Landers RN Body Position: position maintained Skin Protection: incontinence pads utilized silicone border foam - sacrum/coccyx Taken 07/25/2025 0300 by Mireya Landers RN Body Position: turned right Taken 07/25/2025 0200 by Mireya Landers RN Body Position: neutral body alignment neutral head position Skin Protection: incontinence pads utilized Taken 07/25/2025 0000 by Mireya Landers RN Body Position: supine neutral body alignment Skin Protection: incontinence pads utilized silicone border foam - sacrum/coccyx Taken 07/24/20252125 by Mireya Landers RN Body Position: turned right Skin Protection: incontinence pads utilized Taken 07/24/20252024 by Mireya Landers RN Body Position: supine Intervention: Prevent and Manage VTE (Venous Thromboembolism) Risk Recent Flowsheet Documentation Taken 07/25/2025 0400 by Mireya Landers RN VTE Prevention/Management: (heparin) other (see comments) Taken 07/25/2025 0200 by Mireya Landers RN VTE Prevention/Management: (heparin) other (see comments) Taken 07/25/2025 0000 by Mireya Landers RN VTE Prevention/Management: (heparin) other (see comments) Taken 07/24/2025 2200 by Mireya Landers RN VTE Prevention/Management: (heparin) other (see comments) Taken 07/24/20252125 by Mireya Landers RN VTE Prevention/Management: (heparin) other (see comments) Intervention: Prevent Infection Recent Flowsheet Documentation Taken 07/25/2025 0400 by Mireya Landers RN Infection Prevention: environmental surveillance performed Taken 07/25/2025 0200 by Mireya Landers RN Infection Prevention: environmental surveillance performed Taken 07/25/2025 0000 by Mireya Landers RN Infection Prevention: environmental surveillance performed Taken 07/24/20252125 by Mireya Landers RN Infection Prevention: environmental surveillance performed Taken 07/24/20252024 by Mireya Landers RN Infection Prevention: environmental surveillance performed Goal: Optimal Comfort and Wellbeing Outcome: Progressing Intervention: Monitor Pain and Promote Comfort Recent Flowsheet Documentation Taken 07/24/20252125 by Mireya Landers RN Pain Management Interventions: pain medication given Intervention: Provide Person-Centered Care Recent Flowsheet Documentation Taken 07/25/2025 0000 by Mireya Landers RN Trust Relationship/Rapport: care explained questions answered Taken 07/24/20252125 by Mireya Landers RN Trust Relationship/Rapport: care explained questions answered Goal: Readiness for Transition of Care Outcome: Progressing Problem: Fall Injury Risk Goal: Absence of Fall and Fall-Related Injury Outcome: Progressing Intervention: Identify and Manage Contributors Recent Flowsheet Documentation Taken 07/25/2025 0000 by Mireya Landers RN Medication Review/Management: medications reviewed Taken 07/24/20252125 by Mireya Landers RN Medication Review/Management: medications reviewed Intervention: Promote Injury-Free Environment Recent Flowsheet Documentation Taken 07/25/2025 0400 by Mireya Landers RN Safety Promotion/Fall Prevention: activity supervised assistive device/personal items within reach clutter free environment maintained safety round/check completed nonskid shoes/slippers when out of bed Taken 07/25/2025 0200 by Mireya Landers RN Safety Promotion/Fall Prevention: activity supervised assistive device/personal items within reach clutter free environment maintained safety round/check completed nonskid shoes/slippers when out of bed Taken 07/25/2025 0000 by Mireya Landers RN Safety Promotion/Fall Prevention: activity supervised assistive device/personal items within reach clutter free environment maintained safety round/check completed nonskid shoes/slippers when out of bed Taken 07/24/20252125 by Mireya Landers RN Safety Promotion/Fall Prevention: activity supervised assistive device/personal items within reach clutter free environment maintained safety round/check completed nonskid shoes/slippers when out of bed Taken 07/24/20252024 by Mireya Landers RN Safety Promotion/Fall Prevention: activity supervised assistive device/personal items within reach clutter free environment maintained safety round/check completed nonskid shoes/slippers when out of bed Problem: Mobility Impairment Goal: Optimal Mobility Outcome: Progressing Intervention: Optimize Mobility Recent Flowsheet Documentation Taken 07/25/2025 0400 by Mireya Landers RN Activity Management: activity encouraged Assistive Device Utilized: gait belt wheelchair Positioning/Transfer Devices: pillows in use Taken 07/25/2025 030 by Mireya Landers RN Positioning/Transfer Devices: pillows in use Taken 07/25/2025 020 by Mireya Landers RN Activity Management: activity encouraged Assistive Device Utilized: gait belt walker Positioning/Transfer Devices: pillows in use Taken 07/25/2025 0000 by Mireya Landers RN Activity Management: up to bedside commode back to bed Assistive Device Utilized: gait belt walker Positioning/Transfer Devices: pillows in use Taken 07/24/20252125 by Mireya Landers RN Activity Management: activity encouraged Assistive Device Utilized: gait belt walker Positioning/Transfer Devices: pillows in use Taken 07/24/20252024 by Mireya Landers RN Activity Management: activity encouraged Assistive Device Utilized: gait belt walker Positioning/Transfer Devices: pillows in use Problem: Pain Acute Goal: Optimal Pain Control and Function Outcome: Progressing Intervention: Optimize Psychosocial Wellbeing Recent Flowsheet Documentation Taken 07/24/20252125 by Mireya Landers RN Diversional Activities: television Intervention: Develop Pain Management Plan Recent Flowsheet Documentation Taken 07/24/20252125 by Mireya Landers RN Pain Management Interventions: pain medication given Intervention: Prevent or Manage Pain Recent Flowsheet Documentation Taken 07/25/2025 0400 by Mireya Landers RN Sensory Stimulation Regulation: auditory stimulation minimized Sleep/Rest Enhancement: awakenings minimized Taken 07/25/2025 020 by Mireya Landers RN Sensory Stimulation Regulation: auditory stimulation minimized Sleep/Rest Enhancement: awakenings minimized Taken 07/25/2025 0000 by Mireya Landers RN Medication Review/Management: medications reviewed Taken 07/24/20252125 by Mireya Landers RN Medication Review/Management: medications reviewed Problem: Palliative Care Goal: Enhanced Quality of Life Outcome: Progressing Intervention: Maximize Comfort Recent Flowsheet Documentation Taken 07/24/20252125 by Mireya Landers RN Pain Management Interventions: pain medication given Intervention: Optimize Function Recent Flowsheet Documentation Taken 07/25/2025 0400 by Mireya Landers RN Sensory Stimulation Regulation: auditory stimulation minimized Sleep/Rest Enhancement: awakenings minimized Taken 07/25/2025 0200 by Mireya Landers RN Sensory Stimulation Regulation: auditory stimulation minimized Sleep/Rest Enhancement: awakenings minimized Intervention: Optimize Psychosocial Wellbeing Recent Flowsheet Documentation Taken 07/25/2025 0000 by Mireya Landers RN Family/Support System Care: self-care encouraged support provided Taken 07/24/20252125 by Mireya Landers RN Family/Support System Care: self-care encouraged support provided Problem: Skin Injury Risk Increased Goal: Skin Health and Integrity Outcome: Progressing Intervention: Optimize Skin Protection Recent Flowsheet Documentation Taken 07/25/2025 0400 by Mireya Landers RN Activity Management: activity encouraged Pressure Reduction Techniques: weight shift assistance provided Head of Bed (HOB) Positioning: HOB elevated Pressure Reduction Devices: pressure-redistributing mattress utilized Skin Protection: incontinence pads utilized silicone border foam - sacrum/coccyx Taken 07/25/2025 0300 by Mireya Landers RN Head of Bed (HOB) Positioning: HOB elevated Taken 07/25/2025 0200 by Mireya Landers RN Activity Management: activity encouraged Pressure Reduction Techniques: weight shift assistance provided Head of Bed (HOB) Positioning: HOB elevated Pressure Reduction Devices: pressure-redistributing mattress utilized Skin Protection: incontinence pads utilized Taken 07/25/2025 0000 by Mireya Landers RN Activity Management: up to bedside commode back to bed Pressure Reduction Techniques: frequent weight shift encouraged Head of Bed (HOB) Positioning: HOB elevated Pressure Reduction Devices: pressure-redistributing mattress utilized Skin Protection: incontinence pads utilized silicone border foam - sacrum/coccyx Taken 07/24/20252125 by Mireya Landers RN Activity Management: activity encouraged Pressure Reduction Techniques: weight shift assistance provided Head of Bed (HOB) Positioning: [facility] elevated Pressure Reduction Devices: pressure-redistributing mattress utilized Skin Protection: incontinence pads utilized Taken 07/24/20252024 by Mireya Landers RN Activity Management: activity encouraged Head of Bed ([facility]) Positioning: HOB elevated Goal Outcome Evaluation: Plan of Care Reviewed With: patient Progress: no change Outcome Evaluation: Pt remains stable throughout the shift. VSS, on RA. Pt is pleasant, alert and oriented x4. Voiding spontaneously via purewick. Pt had small BM during shift. PRN PO pain meds given. Possible d/c and home with family Friday 07/27. Night time blood sugar 425, hospitalist notified,9 units of lispro given. Continue plan of care, call light within reach, bed alarm set. * Krysten Garvey PTA - 07/24/2025 9:26 AM EDT Goal Outcome Evaluation: Plan of Care Reviewed With: patient Progress: no change Outcome Evaluation: Patient ambulated 30' with min assist x1 and rolling walker for support, K.I. donned d/t h/x knee buckling, at end of ambulation did notice knee buckling, several short standing rest breaks d/t weakness and fatigue. Patient would benefit from SNF at D/C but wants to go home and will have 24/ care. * Mireya Landers RN - 07/24/2025 4:48 AM EDT Problem: Adult Inpatient Plan of Care Goal: Plan of Care Review Outcome: Progressing Flowsheets (Taken 07/24/2025 0446) Progress: no change Outcome Evaluation: Pt remains stable throughout the night. VSS, on RA. Pt is pleasant, alert and oriented x4. Voiding spontaneously via purewick. x1 assist to bedside commode. BM during shift. Rested well throughout the night. Continue plan of care, call light within reach, bed alarm set. Plan of Care Reviewed With: patient Goal: Patient-Specific Goal (Individualized) Outcome: Progressing Goal: Absence of Hospital-Acquired Illness or Injury Outcome: Progressing Intervention: Identify and Manage Fall Risk Recent Flowsheet Documentation Taken 07/24/2025 0400 by Mireya Landers RN Safety Promotion/Fall Prevention: activity supervised assistive device/personal items within reach clutter free environment maintained safety round/check completed nonskid shoes/slippers when out of bed Taken 07/24/2025 0200 by Mireya Landers RN Safety Promotion/Fall Prevention: activity supervised assistive device/personal items within reach clutter free environment maintained safety round/check completed nonskid shoes/slippers when out of bed Taken 07/24/2025 0014 by Mireya Landers RN Safety Promotion/Fall Prevention: activity supervised assistive device/personal items within reach clutter free environment maintained safety round/check completed nonskid shoes/slippers when out of bed Taken 07/23/2025 2230 by Mireya Landers RN Safety Promotion/Fall Prevention: assistive device/personal items within reach activity supervised clutter free environment maintained safety round/check completed nonskid shoes/slippers when out of bed Taken 07/23/2025 2144 by Mireya Landers RN Safety Promotion/Fall Prevention: activity supervised assistive device/personal items within reach clutter free environment maintained safety round/check completed nonskid shoes/slippers when out of bed Taken 07/23/20251999 by Mireya Landers RN Safety Promotion/Fall Prevention: activity supervised assistive device/personal items within reach clutter free environment maintained safety round/check completed nonskid shoes/slippers when out of bed Intervention: Prevent Skin Injury Recent Flowsheet Documentation Taken 07/24/2025 0400 by Mireya Landers RN Body Position: head facing, left Skin Protection: incontinence pads utilized silicone border foam - sacrum/coccyx Taken 07/24/2025 0200 by Mireya Landers RN Body Position: position maintained Skin Protection: incontinence pads utilized silicone border foam - sacrum/coccyx Taken 07/24/202513 by Mireya Landers RN Body Position: neutral body alignment neutral head position Skin Protection: incontinence pads utilized silicone border foam - sacrum/coccyx Taken 07/23/20252229 by Mireya Landers RN Body Position: neutral body alignment neutral head position Skin Protection: incontinence pads utilized Taken 07/23/20252143 by Mireya Landers RN Body Position: position maintained Skin Protection: incontinence pads utilized Taken 07/23/20251999 by Mireya Landers RN Body Position: neutral body alignment neutral head position Intervention: Prevent and Manage VTE (Venous Thromboembolism) Risk Recent Flowsheet Documentation Taken 07/24/2025 0400 by Mireya Landers RN VTE Prevention/Management: (hep) other (see comments) Taken 07/24/2025199 by Mireya Landers RN VTE Prevention/Management: (heparin) other (see comments) Taken 07/24/202513 by Mireya Landers RN VTE Prevention/Management: (heparin) other (see comments) Taken 07/23/20252229 by Mireya Landers RN VTE Prevention/Management: (heparin) other (see comments) Taken 07/23/20252143 by Mireya Landers RN VTE Prevention/Management: (heparin) other (see comments) Intervention: Prevent Infection Recent Flowsheet Documentation Taken 07/24/2025 0400 by Mireya Landers RN Infection Prevention: environmental surveillance performed Taken 07/24/2025199 by Mireya Landers RN Infection Prevention: environmental surveillance performed Taken 07/24/202513 by Mireya Landers RN Infection Prevention: environmental surveillance performed Taken 07/23/20252229 by Mireya Landers RN Infection Prevention: environmental surveillance performed Taken 07/23/20252143 by Mireya Landers RN Infection Prevention: environmental surveillance performed Taken 07/23/20251999 by Mireya Landers RN Infection Prevention: environmental surveillance performed Goal: Optimal Comfort and Wellbeing Outcome: Progressing Intervention: Monitor Pain and Promote Comfort Recent Flowsheet Documentation Taken 07/23/20252143 by Mireya Landers RN Pain Management Interventions: pain medication given Intervention: Provide Person-Centered Care Recent Flowsheet Documentation Taken 07/24/202513 by Mireya Landers RN Trust Relationship/Rapport: care explained questions answered Taken 07/23/20252143 by Mireya Landers RN Trust Relationship/Rapport: care explained questions answered Goal: Readiness for Transition of Care Outcome: Progressing Problem: Fall Injury Risk Goal: Absence of Fall and Fall-Related Injury Outcome: Progressing Intervention: Identify and Manage Contributors Recent Flowsheet Documentation Taken 07/24/202513 by Mireya Landers RN Medication Review/Management: medications reviewed Taken 07/23/20252143 by Mireya Landers RN Medication Review/Management: medications reviewed Intervention: Promote Injury-Free Environment Recent Flowsheet Documentation Taken 07/24/2025 0400 by Mireya Landers RN Safety Promotion/Fall Prevention: activity supervised assistive device/personal items within reach clutter free environment maintained safety round/check completed nonskid shoes/slippers when out of bed Taken 07/24/2025 0200 by Mireya Landers RN Safety Promotion/Fall Prevention: activity supervised assistive device/personal items within reach clutter free environment maintained safety round/check completed nonskid shoes/slippers when out of bed Taken 07/24/2025 0014 by Mireya Landers RN Safety Promotion/Fall Prevention: activity supervised assistive device/personal items within reach clutter free environment maintained safety round/check completed nonskid shoes/slippers when out of bed Taken 07/23/2025 223 by Mireya Landers RN Safety Promotion/Fall Prevention: assistive device/personal items within reach activity supervised clutter free environment maintained safety round/check completed nonskid shoes/slippers when out of bed Taken 07/23/20252143 by Mireya Landers RN Safety Promotion/Fall Prevention: activity supervised assistive device/personal items within reach clutter free environment maintained safety round/check completed nonskid shoes/slippers when out of bed Taken 07/23/20251999 by Mireya Landers RN Safety Promotion/Fall Prevention: activity supervised assistive device/personal items within reach clutter free environment maintained safety round/check completed nonskid shoes/slippers when out of bed Problem: Mobility Impairment Goal: Optimal Mobility Outcome: Progressing Intervention: Optimize Mobility Recent Flowsheet Documentation Taken 07/24/2025 0400 by Mireya Landers RN Activity Management: activity encouraged Assistive Device Utilized: gait belt walker Positioning/Transfer Devices: pillows in use Taken 07/24/2025 0200 by Mireya Landers RN Activity Management: activity encouraged Assistive Device Utilized: gait belt walker Positioning/Transfer Devices: pillows in use Taken 07/24/2025 0014 by Mireya Landers RN Activity Management: up to bedside commode back to bed Assistive Device Utilized: gait belt walker Positioning/Transfer Devices: pillows in use Taken 07/23/2025 2230 by Mireya Landers RN Activity Management: activity encouraged Assistive Device Utilized: gait belt walker Positioning/Transfer Devices: pillows in use Taken 07/23/20252143 by Mireya Landers RN Activity Management: activity encouraged Assistive Device Utilized: gait belt walker Positioning/Transfer Devices: pillows in use Taken 07/23/20251999 by Mireya Landers RN Positioning/Transfer Devices: pillows in use Problem: Pain Acute Goal: Optimal Pain Control and Function Outcome: Progressing Intervention: Optimize Psychosocial Wellbeing Recent Flowsheet Documentation Taken 07/24/2025 0014 by Mireya Landers RN Diversional Activities: television Taken 07/23/20252143 by Mireya Landers RN Diversional Activities: television Taken 07/23/20251999 by Mireya Landers RN Diversional Activities: television Intervention: Develop Pain Management Plan Recent Flowsheet Documentation Taken 07/23/20252143 by Mireya Landers RN Pain Management Interventions: pain medication given Intervention: Prevent or Manage Pain Recent Flowsheet Documentation Taken 07/24/2025 0400 by Mireya Landers RN Sensory Stimulation Regulation: auditory stimulation minimized Taken 07/24/2025 0200 by Mireya Landers RN Sensory Stimulation Regulation: auditory stimulation minimized Taken 07/24/202513 by Mireya Landers RN Sensory Stimulation Regulation: auditory stimulation minimized Sleep/Rest Enhancement: awakenings minimized Medication Review/Management: medications reviewed Taken 07/23/20252229 by Mireya Landers RN Sensory Stimulation Regulation: auditory stimulation minimized Sleep/Rest Enhancement: awakenings minimized Taken 07/23/20252143 by Mireya Landers RN Sensory Stimulation Regulation: auditory stimulation minimized Sleep/Rest Enhancement: awakenings minimized Medication Review/Management: medications reviewed Problem: Palliative Care Goal: Enhanced Quality of Life Outcome: Progressing Intervention: Maximize Comfort Recent Flowsheet Documentation Taken 07/23/20252143 by Mireya Landers RN Pain Management Interventions: pain medication given Intervention: Optimize Function Recent Flowsheet Documentation Taken 07/24/2025 0400 by Mireya Landers RN Sensory Stimulation Regulation: auditory stimulation minimized Taken 07/24/2025 020 by Mireya Landers RN Sensory Stimulation Regulation: auditory stimulation minimized Taken 07/24/202513 by Mireya Landers RN Sensory Stimulation Regulation: auditory stimulation minimized Sleep/Rest Enhancement: awakenings minimized Taken 07/23/20252229 by Mireya Landers RN Sensory Stimulation Regulation: auditory stimulation minimized Sleep/Rest Enhancement: awakenings minimized Taken 07/23/20252143 by Mireya Landers RN Sensory Stimulation Regulation: auditory stimulation minimized Sleep/Rest Enhancement: awakenings minimized Intervention: Optimize Psychosocial Wellbeing Recent Flowsheet Documentation Taken 07/24/202513 by Mireya Landers RN Family/Support System Care: self-care encouraged support provided Taken 07/23/20252143 by Mireya Landers RN Family/Support System Care: support provided self-care encouraged Problem: Skin Injury Risk Increased Goal: Skin Health and Integrity Outcome: Progressing Intervention: Optimize Skin Protection Recent Flowsheet Documentation Taken 07/24/2025399 by Landers, Mireya L, RN Activity Management: activity encouraged Pressure Reduction Techniques: weight shift assistance provided Head of Bed (HOB) Positioning: HOB elevated Pressure Reduction Devices: pressure-redistributing mattress utilized Skin Protection: incontinence pads utilized silicone border foam - sacrum/coccyx Taken 07/24/2025 0200 by Mireya Landers RN Activity Management: activity encouraged Pressure Reduction Techniques: weight shift assistance provided Head of Bed (HOB) Positioning: HOB elevated Pressure Reduction Devices: pressure-redistributing mattress utilized Skin Protection: incontinence pads utilized silicone border foam - sacrum/coccyx Taken 07/24/2025 0014 by Mireya Landers RN Activity Management: up to bedside commode back to bed Pressure Reduction Techniques: weight shift assistance provided Head of Bed (HOB) Positioning: HOB elevated Pressure Reduction Devices: pressure-redistributing mattress utilized Skin Protection: incontinence pads utilized silicone border foam - sacrum/coccyx Taken 07/23/2025 2230 by Mireya Landers RN Activity Management: activity encouraged Pressure Reduction Techniques: weight shift assistance provided Head of Bed (HOB) Positioning: HOB elevated Pressure Reduction Devices: pressure-redistributing mattress utilized Skin Protection: incontinence pads utilized Taken 07/23/2025 2144 by Mireya Landers RN Activity Management: activity encouraged Pressure Reduction Techniques: frequent weight shift encouraged Head of Bed (HOB) Positioning: [facility] elevated Pressure Reduction Devices: pressure-redistributing mattress utilized Skin Protection: incontinence pads utilized Taken 07/23/20251999 by Mireya Landers RN Head of Bed (HOB) Positioning: HOB elevated Problem: Adult Inpatient Plan of Care Goal: Plan of Care Review Outcome: Progressing Flowsheets (Taken 07/24/2025 0446) Progress: no change Outcome Evaluation: Pt remains stable throughout the night. VSS, on RA. Pt is pleasant, alert and oriented x4. Voiding spontaneously via purewick. x1 assist to bedside commode. BM during shift. Rested well throughout the night. Continue plan of care, call light within reach, bed alarm set. Plan of Care Reviewed With: patient Goal: Patient-Specific Goal (Individualized) Outcome: Progressing Goal: Absence of Hospital-Acquired Illness or Injury Outcome: Progressing Intervention: Identify and Manage Fall Risk Recent Flowsheet Documentation Taken 07/24/2025 0400 by Mireya Landers RN Safety Promotion/Fall Prevention: activity supervised assistive device/personal items within reach clutter free environment maintained safety round/check completed nonskid shoes/slippers when out of bed Taken 07/24/2025 0200 by Mireya Landers RN Safety Promotion/Fall Prevention: activity supervised assistive device/personal items within reach clutter free environment maintained safety round/check completed nonskid shoes/slippers when out of bed Taken 07/24/2025 0014 by Mireya Landers RN Safety Promotion/Fall Prevention: activity supervised assistive device/personal items within reach clutter free environment maintained safety round/check completed nonskid shoes/slippers when out of bed Taken 07/23/20252229 by Mireya Landers RN Safety Promotion/Fall Prevention: assistive device/personal items within reach activity supervised clutter free environment maintained safety round/check completed nonskid shoes/slippers when out of bed Taken 07/23/20252143 by Mireya Landers RN Safety Promotion/Fall Prevention: activity supervised assistive device/personal items within reach clutter free environment maintained safety round/check completed nonskid shoes/slippers when out of bed Taken 07/23/20251999 by Mireya Landers RN Safety Promotion/Fall Prevention: activity supervised assistive device/personal items within reach clutter free environment maintained safety round/check completed nonskid shoes/slippers when out of bed Intervention: Prevent Skin Injury Recent Flowsheet Documentation Taken 07/24/2025 0400 by Mireya Landers RN Body Position: head facing, left Skin Protection: incontinence pads utilized silicone border foam - sacrum/coccyx Taken 07/24/2025 0200 by Mireya Landers RN Body Position: position maintained Skin Protection: incontinence pads utilized silicone border foam - sacrum/coccyx Taken 07/24/2025 0014 by Mireya Landers RN Body Position: neutral body alignment neutral head position Skin Protection: incontinence pads utilized silicone border foam - sacrum/coccyx Taken 07/23/20252229 by Mireya Landers RN Body Position: neutral body alignment neutral head position Skin Protection: incontinence pads utilized Taken 07/23/20252143 by Mireya Landers RN Body Position: position maintained Skin Protection: incontinence pads utilized Taken 07/23/20251999 by Mireya Landers RN Body Position: neutral body alignment neutral head position Intervention: Prevent and Manage VTE (Venous Thromboembolism) Risk Recent Flowsheet Documentation Taken 07/24/2025399 by Mireya Landers RN VTE Prevention/Management: (hep) other (see comments) Taken 07/24/2025199 by Mireya Landers RN VTE Prevention/Management: (heparin) other (see comments) Taken 07/24/202513 by Mireya Landers RN VTE Prevention/Management: (heparin) other (see comments) Taken 07/23/20252229 by Mireya Landers RN VTE Prevention/Management: (heparin) other (see comments) Taken 07/23/20252143 by Mireya Landers RN VTE Prevention/Management: (heparin) other (see comments) Intervention: Prevent Infection Recent Flowsheet Documentation Taken 07/24/2025399 by Mireya Landers RN Infection Prevention: environmental surveillance performed Taken 07/24/2025199 by Mireya Landers RN Infection Prevention: environmental surveillance performed Taken 07/24/202513 by Mireya Landers RN Infection Prevention: environmental surveillance performed Taken 07/23/20252229 by Mireya Landers RN Infection Prevention: environmental surveillance performed Taken 07/23/20252143 by Mireya Landers RN Infection Prevention: environmental surveillance performed Taken 07/23/20251999 by Mireya Landers RN Infection Prevention: environmental surveillance performed Goal: Optimal Comfort and Wellbeing Outcome: Progressing Intervention: Monitor Pain and Promote Comfort Recent Flowsheet Documentation Taken 07/23/20252143 by Mireya Landers RN Pain Management Interventions: pain medication given Intervention: Provide Person-Centered Care Recent Flowsheet Documentation Taken 07/24/202513 by Mireya Landers RN Trust Relationship/Rapport: care explained questions answered Taken 07/23/20252143 by Mireya Landers RN Trust Relationship/Rapport: care explained questions answered Goal: Readiness for Transition of Care Outcome: Progressing Problem: Fall Injury Risk Goal: Absence of Fall and Fall-Related Injury Outcome: Progressing Intervention: Identify and Manage Contributors Recent Flowsheet Documentation Taken 07/24/2025 0014 by Mireya Landers RN Medication Review/Management: medications reviewed Taken 07/23/20252143 by Mireya Landers RN Medication Review/Management: medications reviewed Intervention: Promote Injury-Free Environment Recent Flowsheet Documentation Taken 07/24/2025 0400 by Mireya Landers RN Safety Promotion/Fall Prevention: activity supervised assistive device/personal items within reach clutter free environment maintained safety round/check completed nonskid shoes/slippers when out of bed Taken 07/24/2025 0200 by Mireya Landers RN Safety Promotion/Fall Prevention: activity supervised assistive device/personal items within reach clutter free environment maintained safety round/check completed nonskid shoes/slippers when out of bed Taken 07/24/2025 0014 by Mireya Landers RN Safety Promotion/Fall Prevention: activity supervised assistive device/personal items within reach clutter free environment maintained safety round/check completed nonskid shoes/slippers when out of bed Taken 07/23/2025 223 by Mireya Landers RN Safety Promotion/Fall Prevention: assistive device/personal items within reach activity supervised clutter free environment maintained safety round/check completed nonskid shoes/slippers when out of bed Taken 07/23/20252143 by Mireya Landers RN Safety Promotion/Fall Prevention: activity supervised assistive device/personal items within reach clutter free environment maintained safety round/check completed nonskid shoes/slippers when out of bed Taken 07/23/20251999 by Mireya Landers RN Safety Promotion/Fall Prevention: activity supervised assistive device/personal items within reach clutter free environment maintained safety round/check completed nonskid shoes/slippers when out of bed Problem: Mobility Impairment Goal: Optimal Mobility Outcome: Progressing Intervention: Optimize Mobility Recent Flowsheet Documentation Taken 07/24/2025 0400 by Mireya Landers RN Activity Management: activity encouraged Assistive Device Utilized: gait belt walker Positioning/Transfer Devices: pillows in use Taken 07/24/2025 0200 by Mireya Landers RN Activity Management: activity encouraged Assistive Device Utilized: gait belt walker Positioning/Transfer Devices: pillows in use Taken 07/24/2025 0014 by Mireya Landers RN Activity Management: up to bedside commode back to bed Assistive Device Utilized: gait belt walker Positioning/Transfer Devices: pillows in use Taken 07/23/20252229 by Mireya Landers RN Activity Management: activity encouraged Assistive Device Utilized: gait belt walker Positioning/Transfer Devices: pillows in use Taken 07/23/20252143 by Mireya Landers RN Activity Management: activity encouraged Assistive Device Utilized: gait belt walker Positioning/Transfer Devices: pillows in use Taken 07/23/20251999 by Mireya Landers RN Positioning/Transfer Devices: pillows in use Problem: Pain Acute Goal: Optimal Pain Control and Function Outcome: Progressing Intervention: Optimize Psychosocial Wellbeing Recent Flowsheet Documentation Taken 07/24/202513 by Mireya Landers RN Diversional Activities: television Taken 07/23/20252143 by Mireya Landers RN Diversional Activities: television Taken 07/23/20251999 by Mireya Landers RN Diversional Activities: television Intervention: Develop Pain Management Plan Recent Flowsheet Documentation Taken 07/23/20252143 by Mireya Landers RN Pain Management Interventions: pain medication given Intervention: Prevent or Manage Pain Recent Flowsheet Documentation Taken 07/24/2025 0400 by Mireya Landers RN Sensory Stimulation Regulation: auditory stimulation minimized Taken 07/24/2025 0200 by Mireya Landers RN Sensory Stimulation Regulation: auditory stimulation minimized Taken 07/24/2025 0014 by Mireya Landers RN Sensory Stimulation Regulation: auditory stimulation minimized Sleep/Rest Enhancement: awakenings minimized Medication Review/Management: medications reviewed Taken 07/23/20252229 by Mireya Landers RN Sensory Stimulation Regulation: auditory stimulation minimized Sleep/Rest Enhancement: awakenings minimized Taken 07/23/20252143 by Mireya Landers RN Sensory Stimulation Regulation: auditory stimulation minimized Sleep/Rest Enhancement: awakenings minimized Medication Review/Management: medications reviewed Problem: Palliative Care Goal: Enhanced Quality of Life Outcome: Progressing Intervention: Maximize Comfort Recent Flowsheet Documentation Taken 07/23/20252143 by Mireya Landers RN Pain Management Interventions: pain medication given Intervention: Optimize Function Recent Flowsheet Documentation Taken 07/24/2025 0400 by Mireya Landers RN Sensory Stimulation Regulation: auditory stimulation minimized Taken 07/24/2025 020 by Mireya Landers RN Sensory Stimulation Regulation: auditory stimulation minimized Taken 07/24/2025 0014 by Mireya Landers RN Sensory Stimulation Regulation: auditory stimulation minimized Sleep/Rest Enhancement: awakenings minimized Taken 07/23/20252229 by Mireya Landers RN Sensory Stimulation Regulation: auditory stimulation minimized Sleep/Rest Enhancement: awakenings minimized Taken 07/23/20252143 by Mireya Landers RN Sensory Stimulation Regulation: auditory stimulation minimized Sleep/Rest Enhancement: awakenings minimized Intervention: Optimize Psychosocial Wellbeing Recent Flowsheet Documentation Taken 07/24/202513 by Mireya Landers RN Family/Support System Care: self-care encouraged support provided Taken 07/23/20252143 by Mireya Landers RN Family/Support System Care: support provided self-care encouraged Problem: Skin Injury Risk Increased Goal: Skin Health and Integrity Outcome: Progressing Intervention: Optimize Skin Protection Recent Flowsheet Documentation Taken 07/24/2025 0400 by Mireya Landers RN Activity Management: activity encouraged Pressure Reduction Techniques: weight shift assistance provided Head of Bed (HOB) Positioning: HOB elevated Pressure Reduction Devices: pressure-redistributing mattress utilized Skin Protection: incontinence pads utilized silicone border foam - sacrum/coccyx Taken 07/24/2025 0200 by Mireya Landers RN Activity Management: activity encouraged Pressure Reduction Techniques: weight shift assistance provided Head of Bed (HOB) Positioning: HOB elevated Pressure Reduction Devices: pressure-redistributing mattress utilized Skin Protection: incontinence pads utilized silicone border foam - sacrum/coccyx Taken 07/24/2025 0014 by Mireya Landers RN Activity Management: up to bedside commode back to bed Pressure Reduction Techniques: weight shift assistance provided Head of Bed (HOB) Positioning: [facility] elevated Pressure Reduction Devices: pressure-redistributing mattress utilized Skin Protection: incontinence pads utilized silicone border foam - sacrum/coccyx Taken 07/23/2025 2230 by Mireya Landers RN Activity Management: activity encouraged Pressure Reduction Techniques: weight shift assistance provided Head of Bed (HOB) Positioning: [facility] elevated Pressure Reduction Devices: pressure-redistributing mattress utilized Skin Protection: incontinence pads utilized Taken 07/23/20252143 by Mireya Landers RN Activity Management: activity encouraged Pressure Reduction Techniques: frequent weight shift encouraged Head of Bed (HOB) Positioning: [facility] elevated Pressure Reduction Devices: pressure-redistributing mattress utilized Skin Protection: incontinence pads utilized Taken 07/23/20251999 by Mireya Landers RN Head of Bed (HOB) Positioning: HOB elevated Goal Outcome Evaluation: Plan of Care Reviewed With: patient Progress: no change Outcome Evaluation: Pt remains stable throughout the night. VSS, on RA. Pt is pleasant, alert and oriented x4. Voiding spontaneously via purewick. x1 assist to bedside commode. BM during shift. Rested well throughout the night. Continue plan of care, call light within reach, bed alarm set. * Charlotte Catherine RN - 07/23/2025 4:50 PM EDT Problem: Adult Inpatient Plan of Care Goal: Plan of Care Review Outcome: Progressing Flowsheets Taken 07/23/2025 1649 by Charlotte Catherine RN Progress: no change Taken 07/23/2025 1531 by Krysten Sexton PT Plan of Care Reviewed With: patient Goal: Patient-Specific Goal (Individualized) Outcome: Progressing Goal: Absence of Hospital-Acquired Illness or Injury Outcome: Progressing Intervention: Identify and Manage Fall Risk Recent Flowsheet Documentation Taken 07/23/2025 1600 by Charlotte Catherine RN Safety Promotion/Fall Prevention: activity supervised clutter free environment maintained assistive device/personal items within reach room organization consistent safety round/check completed toileting scheduled Taken 07/23/2025 1400 by Charlotte Catherine RN Safety Promotion/Fall Prevention: activity supervised assistive device/personal items within reach clutter free environment maintained room organization consistent safety round/check completed toileting scheduled Taken 07/23/2025 1200 by Chalrotte Catherine RN Safety Promotion/Fall Prevention: activity supervised assistive device/personal items within reach clutter free environment maintained room organization consistent safety round/check completed toileting scheduled Taken 07/23/2025 1000 by Charlotte Catherine RN Safety Promotion/Fall Prevention: activity supervised assistive device/personal items within reach clutter free environment maintained room organization consistent safety round/check completed toileting scheduled Taken 07/23/2025 0841 by Charlotte Catherine RN Safety Promotion/Fall Prevention: activity supervised assistive device/personal items within reach clutter free environment maintained safety round/check completed room organization consistent toileting scheduled Intervention: Prevent Skin Injury Recent Flowsheet Documentation Taken 07/23/2025 1600 by Charlotte Catherine RN Body Position: legs elevated Skin Protection: incontinence pads utilized Taken 07/23/2025 1400 by Charlotte Catherine RN Body Position: legs elevated Skin Protection: incontinence pads utilized Taken 07/23/2025 1200 by Charlotte Catherine RN Body Position: supine Skin Protection: incontinence pads utilized Taken 07/23/2025 1000 by Charlotte Catherine RN Body Position: legs elevated Skin Protection: incontinence pads utilized Taken 07/23/2025 0841 by Charlotte Catherine RN Body Position: left Skin Protection: incontinence pads utilized Intervention: Prevent and Manage VTE (Venous Thromboembolism) Risk Recent Flowsheet Documentation Taken 07/23/2025 0841 by Charlotte Catherine RN VTE Prevention/Management: (heparin) other (see comments) Intervention: Prevent Infection Recent Flowsheet Documentation Taken 07/23/2025 1600 by Charlotte Catherine RN Infection Prevention: environmental surveillance performed rest/sleep promoted Taken 07/23/2025 1400 by Charlotte Catherine RN Infection Prevention: environmental surveillance performed rest/sleep promoted Taken 07/23/2025 1200 by Charlotte Catherine RN Infection Prevention: environmental surveillance performed Taken 07/23/2025 1000 by Charlotte Catherine RN Infection Prevention: environmental surveillance performed rest/sleep promoted Taken 07/23/2025 0841 by Charlotte Catherine RN Infection Prevention: environmental surveillance performed rest/sleep promoted Goal: Optimal Comfort and Wellbeing Outcome: Progressing Intervention: Provide Person-Centered Care Recent Flowsheet Documentation Taken 07/23/2025 1200 by Charlotte Catherine RN Trust Relationship/Rapport: care explained Taken 07/23/2025 0841 by Charlotte Catherine RN Trust Relationship/Rapport: care explained Goal: Readiness for Transition of Care Outcome: Progressing Problem: Fall Injury Risk Goal: Absence of Fall and Fall-Related Injury Outcome: Progressing Intervention: Identify and Manage Contributors Recent Flowsheet Documentation Taken 07/23/2025 1600 by Charlotte Catherine RN Medication Review/Management: medications reviewed Taken 07/23/2025 1400 by Charlotte Catherine RN Medication Review/Management: medications reviewed Taken 07/23/2025 1200 by Charlotte Catherine RN Medication Review/Management: medications reviewed Taken 07/23/2025 1000 by Charlotte Catherine RN Medication Review/Management: medications reviewed Taken 07/23/2025 0841 by Charlotte Catherine RN Medication Review/Management: medications reviewed Intervention: Promote Injury-Free Environment Recent Flowsheet Documentation Taken 07/23/2025 1600 by Charlotte Catherine RN Safety Promotion/Fall Prevention: activity supervised clutter free environment maintained assistive device/personal items within reach room organization consistent safety round/check completed toileting scheduled Taken 07/23/2025 1400 by Charlotte Catherine RN Safety Promotion/Fall Prevention: activity supervised assistive device/personal items within reach clutter free environment maintained room organization consistent safety round/check completed toileting scheduled Taken 07/23/2025 1200 by Charlotte Catherine RN Safety Promotion/Fall Prevention: activity supervised assistive device/personal items within reach clutter free environment maintained room organization consistent safety round/check completed toileting scheduled Taken 07/23/2025 1000 by Charlotte Catherine RN Safety Promotion/Fall Prevention: activity supervised assistive device/personal items within reach clutter free environment maintained room organization consistent safety round/check completed toileting scheduled Taken 07/23/2025 0841 by Charlotte Catherine RN Safety Promotion/Fall Prevention: activity supervised assistive device/personal items within reach clutter free environment maintained safety round/check completed room organization consistent toileting scheduled Problem: Mobility Impairment Goal: Optimal Mobility Outcome: Progressing Intervention: Optimize Mobility Recent Flowsheet Documentation Taken 07/23/2025 1600 by Charlotte Catherine RN Activity Management: up in chair Positioning/Transfer Devices: pillows in use Taken 07/23/2025 1400 by Charlotte Catherine RN Activity Management: up in chair Positioning/Transfer Devices: pillows in use Taken 07/23/2025 1200 by Charlotte Catherine RN Activity Management: activity encouraged Positioning/Transfer Devices: pillows in use Taken 07/23/2025 1000 by Charlotte Catherine RN Activity Management: up in chair Positioning/Transfer Devices: pillows in use Taken 07/23/2025 0841 by Charlotte Catherine RN Activity Management: ambulated to bathroom Assistive Device Utilized: gait belt walker Positioning/Transfer Devices: pillows in use Problem: Pain Acute Goal: Optimal Pain Control and Function Outcome: Progressing Intervention: Prevent or Manage Pain Recent Flowsheet Documentation Taken 07/23/2025 1600 by Charlotte Catherine RN Medication Review/Management: medications reviewed Taken 07/23/2025 1400 by Charlotte Catherine RN Medication Review/Management: medications reviewed Taken 07/23/2025 1200 by Charlotte Catherine RN Medication Review/Management: medications reviewed Taken 07/23/2025 1000 by Charlotte Catherine RN Medication Review/Management: medications reviewed Taken 07/23/2025 0841 by Charlotte Catherine RN Medication Review/Management: medications reviewed Problem: Palliative Care Goal: Enhanced Quality of Life Outcome: Progressing Problem: Skin Injury Risk Increased Goal: Skin Health and Integrity Outcome: Progressing Intervention: Optimize Skin Protection Recent Flowsheet Documentation Taken 07/23/2025 1600 by Charlotte Catherine RN Activity Management: up in chair Pressure Reduction Techniques: frequent weight shift encouraged weight shift assistance provided Pressure Reduction Devices: chair cushion utilized Skin Protection: incontinence pads utilized Taken 07/23/2025 1400 by Charlotte Catherine RN Activity Management: up in chair Pressure Reduction Techniques: frequent weight shift encouraged weight shift assistance provided Pressure Reduction Devices: chair cushion utilized Skin Protection: incontinence pads utilized Taken 07/23/2025 1200 by Charlotte Catherine RN Activity Management: activity encouraged Pressure Reduction Techniques: frequent weight shift encouraged weight shift assistance provided Head of Bed (HOB) Positioning: HOB at 20-30 degrees Pressure Reduction Devices: pressure-redistributing mattress utilized positioning supports utilized Skin Protection: incontinence pads utilized Taken 07/23/2025 1000 by Charlotte Catherine RN Activity Management: up in chair Pressure Reduction Techniques: frequent weight shift encouraged weight shift assistance provided heels elevated off bed Pressure Reduction Devices: chair cushion utilized Skin Protection: incontinence pads utilized Taken 07/23/2025 0841 by Charlotte Catherine RN Activity Management: ambulated to bathroom Pressure Reduction Techniques: frequent weight shift encouraged weight shift assistance provided Head of Bed (HOB) Positioning: HOB at 20-30 degrees Pressure Reduction Devices: pressure-redistributing mattress utilized positioning supports utilized Skin Protection: incontinence pads utilized Goal Outcome Evaluation: Progress: no change Pt alert and oriented x4. VSS. RA. No cardiac monitoring ordered. Sliding scale insulin and scheduled 14 units with each meal administered as ordered. Pt became very fatigued walking back from bathroom today, requiring the chair to be moved to the bathroom door to sit in. * Krysten Sexton, PT - 07/23/2025 2:53 PM EDT Goal Outcome Evaluation: Plan of Care Reviewed With: patient Progress: no change Outcome Evaluation: Pt continues to present below baseline with weakness, impaired balance, and decreased endurance. She ambulated 40' with min/mod A, RW, and KI donned. Further IPPT is warranted. Atthis time PT is updating d/c rec to SNF as pt is at high risk for falls. Anticipated Discharge Disposition (PT): nursing home facility * Lenka Payne OT - 07/23/2025 7:48 AM EDT Problem: Adult Inpatient Plan of Care Goal: Plan of Care Review Recent Flowsheet Documentation Taken 07/23/2025 0939 by Lenka Payne ANILA Progress: improving Outcome Evaluation: Pt is A/Ox4 this morning and is eager to regain her occupational independence. Education reinforced for spinal precautions for comfort. Pt transitions to EOB sitting with Min A and increased time. Able to ambulate 2x15' with RW support and seated rest break in between. Presents with LLE ataxia and requires cues/assist for RW positioning and safety. Pt completes UB bathing, dressing, and grooming seated at sink side with increased time and effort. OT will continue to follow IP. Recommend SNF for best outcome at d/c. * Lashonda Vásquez RN - 07/23/2025 5:12 AM EDT Goal Outcome Evaluation: Patient is A&Ox4 on RA. VSS. MRI of abdomen completed. Patient struggled to transfer due to Left sided weakness. Team lifted from chair to bed. Voiding spontaneously via purewick. Skin interventions in place * Shannon Etienne RN - 07/22/2025 3:05 PM EDT Goal Outcome Evaluation: Inpatient Palliative RN visit to bedside. Pt was up in recliner and smiling when this nurse arrived. Pt reports that she had her last radiation today and that went very well. She did report gettingsore after radiation but is not in pain at this time. When asked how she felt today, pt replied, Like a million bucks! She reported getting good sleep last night. She showed this nurse how she can l ift her left leg today and was excited about the progress. She states that she has been voiding fine and has been ambulating to the bathroom with walker and 1 assist. She states she has been to the bathroom to void twice today. Pt also reports she had a BM today. Palliative will continue to follow. Problem: Palliative Care Goal: Enhanced Quality of Life Outcome: Progressing * Krysten Sexton, PT - 07/22/2025 2:48 PM EDT Goal Outcome Evaluation: Plan of Care Reviewed With: patient Progress: no change Outcome Evaluation: Pt continues to present below baseline with weakness, impaired balance, and decreased endurance. Pt ambulated 60' with min Ax1+1 and RW. L knee buckling demo'd with fatigue. Further IPPT is warranted. PT will progress as able per POC. Anticipated Discharge Disposition (PT): home with 22/04 care, home with home health * Lashonda Vásquez RN - 07/22/2025 4:30 AM EDT Goal Outcome Evaluation: Progress: no change No significant events overnight. Patient rested well between care. A&Ox4 on RA. VSS. No c/o pain. Turned Q2. Voiding spontaneously via purewick * Shannon Etienne RN - 07/21/2025 2:15 PM EDT Goal Outcome Evaluation: Inpatient Palliative RN visit to bedside. Pt appeared to be in good spirits today. States radiationwas okay today, but they did have a hard time getting her adjusted to the table. She states that she was depressed that she had been unable to have a bowel movement but once she had one today, she was relieved. Pt reports that she has 1 more radiation treatment tomorrow and is planning to stay in the hospital for a few days to be monitored for swelling. Denies breathing issues. Palliative will continue to follow. 1030: Palliative IDT meeting: JAI BELCHERN, RNs, Problem: Palliative Care Goal: Enhanced Quality of Life Outcome: Progressing * Lashonda Vásquez RN - 07/21/2025 4:45 AM EDT Goal Outcome Evaluation: Patient is A&Ox4 on RA. VSS. C/o pain treated with prn medication. Voiding spontaneously via purewick. BM this shift. Patient repositions self adequately * Shannon Etienne RN - 07/20/2025 3:10 PM EDT Goal Outcome Evaluation: Inpatient Palliative RN visit to bedside. Pt was sitting up in bed upon arrival. Pt reports 8/10 pain on her extremities and neck but reports she just received pain medicine (per chart, administered at 1448). She states she feels like she is getting ready to have a BM during the visit. She does report a little nausea for a couple min which she states goes away without medication. Continues withPalliative Radiation to spine to be completed . Palliative to continue to follow. 929 Palliative IDT meeting: MD, INSTRUCTOR [employer]UST[employer], RNs, MDIV, HEEL BREASTER Problem: Palliative Care Goal: Enhanced Quality of Life Outcome: Progressing * Virginia Pepe, OT Student - 07/20/2025 9:49 AM EDT Goal Outcome Evaluation: Plan of Care Reviewed With: (P) patient Progress: (P) no change Outcome Evaluation: (P) Pt continues to present below baseline with deficits of generalized weakness, impaired balance and decreased functional endurance. Pt completed HEP with A from OT. Pt will continue to benefit from IP OT to address deficits listed. OT discussed potentially returning home and safety with pt, as of now pt will not be able to have consistent 24/7 A. Pt acknowledges potential difficulty at home and level of A needed, is working on finding 24/7 A. D/t the level of A with transfers that pt needs, OT is changing rec to Rec SNF upon d/c. Anticipated Discharge Disposition (OT): (P) nursing home facility Cosigned by Louise Zhou, ANILA at 07/20/2025 3:27 PM EDT Associated attestation - Louise Zhou OT - 07/20/2025 3:27 PM EDT Louise Zhou OTR/L * Stefani Pfeiffer RN - 07/20/2025 5:40 AM EDT Goal Outcome Evaluation: Plan of Care Reviewed With: patient Progress: no change VSS on room air. Pt has slept off and on throughout the shift. PRN oxycodone given as ordered for pain. BS in the 400s this evening; MCKAYLA Owens notified; ordered to give scheduled and sliding scale insulin and recheck her BS at 0000; if over 400, call back . Midnight BS 285. Soap suds enema given q4hrs as ordered; no results. Call light in reach. * Virginia Pepe, OT Student - 07/19/2025 1:13 PM EDT Goal Outcome Evaluation: Plan of Care Reviewed With: (P) patient Progress: (P) improving Outcome Evaluation: (P) Pt continues to present below baseline with deficits of generalized weakness, impaired balance, and decreased functional endurance. Reviewed HEP with pt, will continue to benefit from IP OT to addressed deficits listed. Rec home with 22/04 A and OT. Anticipated Discharge Disposition (OT): (P) home with 22/04 care, home with home health Cosigned by Louise Zhou OT at 07/19/2025 2:19 PM EDT Associated attestation - Louise Zhou OT - 07/19/2025 2:19 PM EDT Louise Zhou OTR/L * Roxana Rahman, PT - 07/19/2025 10:52 AM EDT Goal Outcome Evaluation: Plan of Care Reviewed With: patient Outcome Evaluation: Session focusing on wheelchair mobility this date, navigated 200 ft w/ initial CGA however as pt began to fatigue req Romel. Discussed w/ pt appropriate safety and sequencing w/ use of wheelchair, demo good carryover. Pt will continue to benefit from IPPT to address generalized weakness (L>R), coordination impairments, balance deficits, and decreased functional endurance. Anticipated Discharge Disposition (PT): home with 22/04 care, home with home health * Stefani Pfeiffer RN - 07/19/2025 5:17 AM EDT Goal Outcome Evaluation: Plan of Care Reviewed With: patient Progress: no change A&Ox4. VSS on room air. Pt has slept off and on throughout the shift. PRN oxycodone given as ordered for pain. BS in the 400s this evening; Naida Garrido APRN notified; she said to give the insulin already ordered and recheck her BS at 0000; if over 400, call back . Midnight BS 228. Up with an assist x1 to bathroom; voiding spontaneously; BM this shift. Changes positions independently. Anticipating next dose of radiation today. Call light in reach. * Walter Pepe, PT - 07/18/2025 10:28 AM EDT Goal Outcome Evaluation: Plan of Care Reviewed With: patient Progress: improving Outcome Evaluation: Less numbness did required min assist but walked 150 ft with RW. Min a with transfers and went back to bed for nap. LUE decreased motor control with reaching and push pull WB ing. Anticipated Discharge Disposition (PT): home with / care, home with home health * Stefani Pfeiffer RN - 07/18/2025 5:08 AM EDT Goal Outcome Evaluation: Plan of Care Reviewed With: patient Progress: no change A&Ox4. VSS on room air. NSR on tele. Pt has slept off and on throughout the shift. PRN oxycodone given as ordered for pain. Up with an assist x1 to bathroom; voiding spontaneously; BM this shift.Changes positions independently. Call light in reach. * Rolan Ryder RN - 07/17/2025 5:37 PM EDT Goal Outcome Evaluation: Alert and oriented but forgetful.Vital signs within normal limits.Ambulating in the room.Next Radiation Therapy on Saturday. * Walter Pepe, PT - 07/17/2025 9:22 AM EDT Goal Outcome Evaluation: Plan of Care Reviewed With: patient Progress: improving Outcome Evaluation: Transfer supine to sit with supervision to CG. CG sit to stand and ambululate 100 ft with RW adjusted to pt for home. OOB in chair to tolerance. Discussed energy conservation. Mayneed AFO for L foot monitor recover as radiation is completed. Anticipated Discharge Disposition (PT): home with 24 care, home with home health * Mireya Landers RN - 07/17/2025 4:47 AM EDT Problem: Adult Inpatient Plan of Care Goal: Plan of Care Review Outcome: Progressing Flowsheets (Taken 07/17/2025 0446) Progress: no change Outcome Evaluation: Pt remains stable throughout the night. VSS, on RA. Voiding spontaneously. x1 assist to bathroom, left leg weaker than right. Ambulated to bathroom twice during the shift. Pt is alert and oriented x4. Pt rested well throughout the night. Continue plan of care, call light within reach, bed alarm set. Plan of Care Reviewed With: patient Goal: Patient-Specific Goal (Individualized) Outcome: Progressing Goal: Absence of Hospital-Acquired Illness or Injury Outcome: Progressing Intervention: Identify and Manage Fall Risk Recent Flowsheet Documentation Taken 07/17/2025 040 by Mireya Landers RN Safety Promotion/Fall Prevention: activity supervised assistive device/personal items within reach clutter free environment maintained safety round/check completed nonskid shoes/slippers when out of bed Taken 07/17/2025199 by Mireya Landers RN Safety Promotion/Fall Prevention: activity supervised assistive device/personal items within reach clutter free environment maintained safety round/check completed nonskid shoes/slippers when out of bed Taken 07/17/2025 002 by Mireya Landers RN Safety Promotion/Fall Prevention: activity supervised assistive device/personal items within reach clutter free environment maintained safety round/check completed nonskid shoes/slippers when out of bed Taken 07/16/20252199 by Mireya Landers RN Safety Promotion/Fall Prevention: activity supervised clutter free environment maintained assistive device/personal items within reach safety round/check completed nonskid shoes/slippers when out of bed Taken 07/16/20252044 by Mireya Landers RN Safety Promotion/Fall Prevention: activity supervised assistive device/personal items within reach clutter free environment maintained safety round/check completed nonskid shoes/slippers when out of bed Intervention: Prevent Skin Injury Recent Flowsheet Documentation Taken 07/17/2025 0400 by Mireya Landers RN Body Position: position changed independently Skin Protection: incontinence pads utilized Taken 07/17/2025199 by Mireya Landers RN Body Position: position changed independently Skin Protection: incontinence pads utilized Taken 07/17/2025 0020 by Mireya Landers RN Body Position: position changed independently Skin Protection: incontinence pads utilized Taken 07/16/20252199 by Mireya Landers RN Body Position: position changed independently Skin Protection: incontinence pads utilized Taken 07/16/20252044 by Mireya Landers RN Body Position: neutral body alignment neutral head position Skin Protection: incontinence pads utilized Intervention: Prevent and Manage VTE (Venous Thromboembolism) Risk Recent Flowsheet Documentation Taken 07/16/20252044 by Mireya Landers RN VTE Prevention/Management: bilateral SCDs (sequential compression devices) off Intervention: Prevent Infection Recent Flowsheet Documentation Taken 07/17/2025 0400 by Mireya Landers RN Infection Prevention: environmental surveillance performed Taken 07/17/2025 020 by Mireya Landers RN Infection Prevention: environmental surveillance performed Taken 07/17/2025 002 by Mireya Landers RN Infection Prevention: environmental surveillance performed Taken 07/16/20252199 by Mireya Landers RN Infection Prevention: environmental surveillance performed Taken 07/16/20252044 by Mireya Landers RN Infection Prevention: environmental surveillance performed Goal: Optimal Comfort and Wellbeing Outcome: Progressing Intervention: Monitor Pain and Promote Comfort Recent Flowsheet Documentation Taken 07/16/20252044 by Mireya Landers RN Pain Management Interventions: pain medication given Intervention: Provide Person-Centered Care Recent Flowsheet Documentation Taken 07/17/2025 002 by Mireya Landers RN Trust Relationship/Rapport: care explained questions answered Taken 07/16/20252199 by Mireya Landers RN Trust Relationship/Rapport: care explained questions answered Taken 07/16/20252044 by Mireya Landers RN Trust Relationship/Rapport: care explained questions answered Goal: Readiness for Transition of Care Outcome: Progressing Problem: Fall Injury Risk Goal: Absence of Fall and Fall-Related Injury Outcome: Progressing Intervention: Identify and Manage Contributors Recent Flowsheet Documentation Taken 07/17/2025 002 by Mireya Landers RN Medication Review/Management: medications reviewed Taken 07/16/20252044 by Mireya Landers RN Medication Review/Management: medications reviewed Intervention: Promote Injury-Free Environment Recent Flowsheet Documentation Taken 07/17/2025 0400 by Mireya Landers RN Safety Promotion/Fall Prevention: activity supervised assistive device/personal items within reach clutter free environment maintained safety round/check completed nonskid shoes/slippers when out of bed Taken 07/17/2025 0200 by Mireya Landers RN Safety Promotion/Fall Prevention: activity supervised assistive device/personal items within reach clutter free environment maintained safety round/check completed nonskid shoes/slippers when out of bed Taken 07/17/2025 0020 by Mireya Landers RN Safety Promotion/Fall Prevention: activity supervised assistive device/personal items within reach clutter free environment maintained safety round/check completed nonskid shoes/slippers when out of bed Taken 07/16/20252199 by Mireya Landers RN Safety Promotion/Fall Prevention: activity supervised clutter free environment maintained assistive device/personal items within reach safety round/check completed nonskid shoes/slippers when out of bed Taken 07/16/20252044 by Mireya Landers RN Safety Promotion/Fall Prevention: activity supervised assistive device/personal items within reach clutter free environment maintained safety round/check completed nonskid shoes/slippers when out of bed Problem: Mobility Impairment Goal: Optimal Mobility Outcome: Progressing Intervention: Optimize Mobility Recent Flowsheet Documentation Taken 07/17/2025 040 by Mireya Landers RN Activity Management: activity encouraged Assistive Device Utilized: gait belt walker Positioning/Transfer Devices: pillows in use Taken 07/17/2025 020 by Mireya Landers RN Activity Management: activity encouraged Assistive Device Utilized: gait belt walker Positioning/Transfer Devices: pillows in use Taken 07/17/2025 002 by Mireya Landers RN Activity Management: ambulated to bathroom back to bed Assistive Device Utilized: gait belt walker Positioning/Transfer Devices: pillows in use Taken 07/16/20252199 by Mireya Landers RN Activity Management: activity encouraged Positioning/Transfer Devices: pillows in use Taken 07/16/20252044 by Mireya Landers RN Activity Management: ambulated to bathroom back to bed Assistive Device Utilized: gait belt walker Positioning/Transfer Devices: pillows in use Problem: Pain Acute Goal: Optimal Pain Control and Function Outcome: Progressing Intervention: Optimize Psychosocial Wellbeing Recent Flowsheet Documentation Taken 07/17/2025 0400 by Mireya Landers RN Supportive Measures: active listening utilized Taken 07/17/2025 020 by Mireya Landers RN Supportive Measures: active listening utilized Taken 07/17/2025 002 by Mireya Landers RN Supportive Measures: active listening utilized Taken 07/16/20252199 by Mireya Landers RN Supportive Measures: active listening utilized Taken 07/16/20252044 by Mireya Landers RN Supportive Measures: active listening utilized Diversional Activities: television smartphone Intervention: Develop Pain Management Plan Recent Flowsheet Documentation Taken 07/16/20252044 by Mireya Landers RN Pain Management Interventions: pain medication given Intervention: Prevent or Manage Pain Recent Flowsheet Documentation Taken 07/17/202519 by Mireya Landers RN Medication Review/Management: medications reviewed Taken 07/16/20252044 by Mireya Landers RN Sensory Stimulation Regulation: auditory stimulation minimized Medication Review/Management: medications reviewed Problem: Palliative Care Goal: Enhanced Quality of Life Outcome: Progressing Intervention: Maximize Comfort Recent Flowsheet Documentation Taken 07/16/20252044 by Mireya Landers RN Pain Management Interventions: pain medication given Intervention: Optimize Function Recent Flowsheet Documentation Taken 07/16/20252044 by Mireya Landers RN Sensory Stimulation Regulation: auditory stimulation minimized Intervention: Optimize Psychosocial Wellbeing Recent Flowsheet Documentation Taken 07/17/2025 0400 by Mireya Landers RN Supportive Measures: active listening utilized Taken 07/17/2025199 by Mireya Landers RN Supportive Measures: active listening utilized Taken 07/17/2025 002 by Mireya Landers RN Supportive Measures: active listening utilized Family/Support System Care: self-care encouraged support provided Taken 07/16/20252199 by Mireya Landers RN Supportive Measures: active listening utilized Family/Support System Care: self-care encouraged support provided Taken 07/16/20252044 by Mireya Landers RN Supportive Measures: active listening utilized Family/Support System Care: self-care encouraged support provided Goal Outcome Evaluation: Plan of Care Reviewed With: patient Progress: no change Outcome Evaluation: Pt remains stable throughout the night. VSS, on RA. Voiding spontaneously. x1 assist to bathroom, left leg weaker than right. Ambulated to bathroom twice during the shift. Pt is alert and oriented x4. Pt rested well throughout the night. Continue plan of care, call light within reach, bed alarm set. * Christine Win RN - 07/16/2025 4:00 PM EDT Goal Outcome Evaluation: Plan of Care Reviewed With: patient Progress: no change Outcome Evaluation: Palliative consulted for GOC/ACP, pain management and support to pt and family.Seen by Dr. Vaibhav Ortiz for initial consult yesterday, and in follow up this morning. Seen by Palliative RN today at 1205; sitting in recliner, alert, oriented; reported mild pain in LE, stated d/w Dr. Lassiter earlier about hallucinations possibly related to pain medications and adjustments made by Dr. Lassiter; monitor response. Started XRT today; continue steroids over the weekend. No ACP doc on file; spouse Ed Parmjit is NOK. Palliative following for continued support, symptom mangement as needed, GOC/POC as interventions for spinal mets continue. 0930: Palliative IDT discussion: JEB BELCHER, RN, SW, Self Propelled Hot Mix Roller Operator After hours, weekends and holidays, contact Palliative Provider by calling [phone] Problem: Palliative Care Goal: Enhanced Quality of Life Outcome: Progressing Intervention: Maximize Comfort Flowsheets (Taken 07/16/2025 1553) Pain Management Interventions: (noted pain med adjustments by Dr. Lassiter due to hallucinations) pain management plan reviewed with patient/caregiver other (see comments) Intervention: Optimize Function Flowsheets (Taken 07/16/2025 1553) Fatigue Management: frequent rest breaks encouraged paced activity encouraged Sleep/Rest Enhancement: consistent schedule promoted family presence promoted natural light exposure provided Intervention: Promote Advance Care Planning Flowsheets (Taken 07/16/2025 1553) Life Transition/Adjustment: palliative care discussed palliative care initiated Intervention: Optimize Psychosocial Wellbeing Flowsheets (Taken 07/16/2025 1553) Supportive Measures: active listening utilized goal-setting facilitated positive reinforcement provided verbalization of feelings encouraged self-responsibility promoted Spiritual Activities Assistance: (Spiritual Care consult) other (see comments) Family/Support System Care: involvement promoted presence promoted self-care encouraged support provided caregiver stress acknowledged * Regina See RN - 07/16/2025 3:58 PM EDT Problem: Adult Inpatient Plan of Care Goal: Plan of Care Review Outcome: Progressing Flowsheets (Taken 07/16/20251552 by Christine Win, RN) Outcome Evaluation: Palliative consulted for GOC/ACP, pain management and support to pt and family. Seen by Dr. Vaibhav Ortiz for initial consult yesterday, and in follow up this morning. Seen by Palliative RN today at 1205 sitting in recliner, alert, oriented reported mild pain in LE, stated d/w Dr. Lassiter earlier about hallucinations possibly related to pain medications and adjustments made by Dr. Lassiter monitor response. Started XRT today continue steroids over the weekend. (Pended) Goal: Patient-Specific Goal (Individualized) Outcome: Progressing Goal: Absence of Hospital-Acquired Illness or Injury Outcome: Progressing Intervention: Identify and Manage Fall Risk Recent Flowsheet Documentation Taken 07/16/2025 1426 by Regina See, RN Safety Promotion/Fall Prevention: activity supervised assistive device/personal items within reach fall prevention program maintained gait belt nonskid shoes/slippers when out of bed room organization consistent safety round/check completed Taken 07/16/2025 1246 by Regina See, RN Safety Promotion/Fall Prevention: activity supervised assistive device/personal items within reach fall prevention program maintained gait belt nonskid shoes/slippers when out of bed room organization consistent safety round/check completed Taken 07/16/2025 1006 by Regina See, RN Safety Promotion/Fall Prevention: activity supervised assistive device/personal items within reach fall prevention program maintained gait belt nonskid shoes/slippers when out of bed room organization consistent safety round/check completed Taken 07/16/2025 0810 by Regina See RN Safety Promotion/Fall Prevention: activity supervised assistive device/personal items within [facility] fall prevention program maintained gait belt nonskid shoes/slippers when out of bed room organization consistent safety round/check completed clutter free environment maintained Intervention: Prevent Skin Injury Recent Flowsheet Documentation Taken 07/16/2025 1426 by Regina See RN Body Position: position changed independently supine Skin Protection: incontinence pads utilized Taken 07/16/2025 1246 by Regina See RN Body Position: legs elevated weight shifting Skin Protection: incontinence pads utilized Taken 07/16/2025 1006 by Regina See RN Body Position: position changed independently supine Skin Protection: incontinence pads utilized Taken 07/16/2025 0810 by Regina See RN Body Position: supine Skin Protection: incontinence pads utilized Goal: Optimal Comfort and Wellbeing Outcome: Progressing Intervention: Provide Person-Centered Care Recent Flowsheet Documentation Taken 07/16/2025 0810 by Regina See RN Trust Relationship/Rapport: care explained emotional support provided questions answered questions encouraged thoughts/feelings acknowledged choices provided Goal: Readiness for Transition of Care Outcome: Progressing Problem: Fall Injury Risk Goal: Absence of Fall and Fall-Related Injury Outcome: Progressing Intervention: Promote Injury-Free Environment Recent Flowsheet Documentation Taken 07/16/2025 1426 by Regina See RN Safety Promotion/Fall Prevention: activity supervised assistive device/personal items within [facility] fall prevention program maintained gait belt nonskid shoes/slippers when out of bed room organization consistent safety round/check completed Taken 07/16/2025 1246 by Regina See RN Safety Promotion/Fall Prevention: activity supervised assistive device/personal items within [facility] fall prevention program maintained gait belt nonskid shoes/slippers when out of bed room organization consistent safety round/check completed Taken 07/16/2025 1006 by Regina See RN Safety Promotion/Fall Prevention: activity supervised assistive device/personal items within [facility] fall prevention program maintained gait belt nonskid shoes/slippers when out of bed room organization consistent safety round/check completed Taken 07/16/2025 0810 by Regina See RN Safety Promotion/Fall Prevention: activity supervised assistive device/personal items within [facility] fall prevention program maintained gait belt nonskid shoes/slippers when out of bed room organization consistent safety round/check completed clutter free environment maintained Problem: Mobility Impairment Goal: Optimal Mobility Outcome: Progressing Intervention: Optimize Mobility Recent Flowsheet Documentation Taken 07/16/2025 1426 by Regina See RN Activity Management: back to bed Taken 07/16/2025 1246 by Regina See, RN Activity Management: up in chair Taken 07/16/2025 1006 by Regina See, RN Activity Management: activity encouraged Taken 07/16/2025 0810 by Regina See, DERRICK Activity Management: up to bedside commode back to bed Problem: Pain Acute Goal: Optimal Pain Control and Function Outcome: Progressing Problem: Palliative Care Goal: Enhanced Quality of Life Outcome: Progressing Goal Outcome Evaluation: reported multiple hallucinations last night, possibly due to medications -adjustments made; discontinued Lyrica, PRN benzodiazepine, [place] to as needed Roxicodone and will reassess. Will stay through the weekend at least per discussion w Rad/Onc given risk of spinal swelling w radiation. Radiation successful today, will repeat on 07/19 , continue IV steroids. Palliative consulted for GOC/ACP, pain management and support to pt and family. AOx4, VSS, sitting up in chair, family/support system at bedside, no needs identified at this time * Roxana Rahman, PT - 07/16/2025 11:27 AM EDT Goal Outcome Evaluation: Plan of Care Reviewed With: patient Outcome Evaluation: Pt amb two short bouts of gait in room w/ FWW, continues to present w/ L knee buckling and gait instabilties requiring ModAx1 to correct. Continue progressing current PT POC as tolerated to address deficits in strength, balance, and functional endurance. Anticipated Discharge Disposition (PT): home with 24/7 care, home with home health * Eloisa Jerome RN - 07/16/2025 6:19 AM EDT Problem: Adult Inpatient Plan of Care Goal: Plan of Care Review Outcome: Progressing Goal Outcome Evaluation: * Darshana Garcia RN - 07/15/2025 6:28 PM EDT Goal Outcome Evaluation: Plan of Care Reviewed With: patient Outcome Evaluation: Pt is alert and oriented x4. VSS on room air. Transfers from chair to C with assist x1 and walker. Minimal complaints of pain in LLE. * Roxana Rahman PT - 07/15/2025 10:33 AM EDT Goal Outcome Evaluation: Plan of Care Reviewed With: patient Outcome Evaluation: PT eval complete. Pt presents below baseline with generalized weakness, gait abnormalities, balance deficits, and decreased functional endurance warranting IPPT. Pt assisted in amb 9 ft w/ FWW MiNAx2. Anticipate need for 24/7 care if pt is to d/c home w/ HHPT, however will contin ue to monitor progress and family ability to provide. If pt is to d/c home will req wheelchair and FWW. Anticipated Discharge Disposition (PT): home with 24/7 care, home with home health * Lenka Payne OT - 07/15/2025 10:28 AM EDT Problem: Adult Inpatient Plan of Care Goal: Plan of Care Review Recent Flowsheet Documentation Taken 07/15/2025 1141 by Lenka Payne OT Progress: (IE) -- Outcome Evaluation: OT IE completed. Pt is A/Ox3 and motivated to work with therapy. Presents belowher baseline with acute weakness L>R side UE and LE. Pt is up in room with good effort. Able stand and ambulate in room with RW support without L knee buckling or overt LOB. Pt requires cues and assist for RW sequencing and safety. OT issued Foam Block HEP and adapted utensils and button/zip aide to support self-feeding/self-care. OT will follow IP to support safe transition to home. Recommendhome with 22/04 assist at d/c and HH OT to determine home safety and modification needs if possible. documented in this encounter ED Notes * Carson Colvin MD - 2025 9:01 PM EDT EMERGENCY DEPARTMENT ENCOUNTER Pt Name: Peter Parnell Pt : 1960 Room Number: S386/1 Date of encounter: 2025 PCP: Loretta Landon MD ED Provider: Carson Colvin MD Historian: Patient Limitations to obtaining a complete HPI/ROS/PMH/PSH/SH/FH: none HPI: Chief Complaint: Chief Complaint Patient presents with Weakness - Generalized Context: Peter Parnell is a 65-year-old female with a past medical history of breast cancer complicated by metastasis to the brain, ribs, liver, and spine status post radiation therapy, currently on daily oral chemotherapy, presenting with frequent falls and weakness. States that over the last3 days, she has felt increasingly more unstable, falling off to her right side. Has fallen multiple times. Denies any head injury. States she did injure her left lower extremity and can no longer weight-bear. States that her left lower extremity feels weak and she is now having worsening back pain.Called her oncologist who ordered an outpatient MRI of the brain to be performed tomorrow.. PAST MEDICAL HISTORY Active Ambulatory Problems Diagnosis Date Noted Malignant neoplasm of upper-outer quadrant of left breast in female, estrogen receptor positive 08/22/2016 Contracture of finger joint 08/22/2016 Adenocarcinoma of 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 09/25/2019 Breast cancer metastasized to bone 09/25/2019 Encounter for care related to vascular access port 10/09/2019 Chemotherapy-induced neuropathy 02/01/2022 Brain metastases 09/06/2022 Resolved Ambulatory Problems Diagnosis Date Noted No Resolved Ambulatory Problems Past Medical History: Diagnosis Date Back problem Bone cancer Breast cancer Diabetes mellitus Drug therapy 12/2013 History of radiation therapy 01/19/2022 History of radiation therapy 09/26/2022 Hx of radiation therapy 04/2014 Kidney stone Liver carcinoma Neuropathy Radiation PAST SURGICAL HISTORY Past Surgical History: Procedure Laterality Date BREAST BIOPSY Left BREAST LUMPECTOMY Left 11/2013 CATARACT EXTRACTION Right 02/11/2024 HEAD/NECK LESION/CYST EXCISION Right 12/02/2020 Procedure: WIDE EXCISION MALIGNANT LESION OF SCALP; Surgeon: Evens Wagner MD; Location: [facility] OR; Service: General; Laterality: Right; LIVER BIOPSY 09/22/2019 OOPHORECTOMY PORTACATH PLACEMENT Right 2019 SKIN FULL THICKNESS GRAFT Right 12/02/2020 Procedure: FULL THICKNESS SKIN GRAFT, RESECTION OF TUMOR OF RIGHT NECK; Surgeon: Evens Wagner MD; Location: [facility] OR; Service: General; Laterality: Right; FAMILY HISTORY Family History Problem Relation Age of Onset Diabetes Mother Cancer Mother Lung cancer Mother No Known Problems Father Cancer Sister Diabetes Sister Kidney cancer Sister Breast cancer Neg Hx Endometrial cancer Neg Hx Ovarian cancer Neg Hx SOCIAL HISTORY Social History[1] ALLERGIES Patient has no known allergies. REVIEW OF SYSTEMS All systems reviewed and negative except for those discussed in HPI. PHYSICAL EXAM I have reviewed the triage vital signs and nursing notes. ED Triage Vitals [07/14/252000] Temp Heart Rate Resp BP SpO2 98.6 ??F (37 ??C) 103 18 135/74 99 % Temp src Heart Rate Source Patient Position BP Location FiO2 (%) -- -- -- -- -- Physical Exam Vitals and nursing note reviewed. Constitutional: General: She is not in acute distress. Appearance: She is not ill-appearing or toxic-appearing. HENT: Head: Normocephalic and atraumatic. Nose: Nose normal. Mouth/Throat: Mouth: Mucous membranes are moist. Pharynx: Oropharynx is clear. Eyes: Extraocular Movements: Extraocular movements intact. Pupils: Pupils are equal, round, and reactive to light. Cardiovascular: Rate and Rhythm: Normal rate and regular rhythm. Pulses: Normal pulses. Heart sounds: Normal heart sounds. No murmur heard. No friction rub. No gallop. Pulmonary: Effort: Pulmonary effort is normal. No respiratory distress. Breath sounds: Normal breath sounds. Abdominal: General: There is no distension. Palpations: Abdomen is soft. Tenderness: There is no abdominal tenderness. There is no guarding or rebound. Musculoskeletal: General: Tenderness (midline lumbar spine) present. Skin: General: Skin is warm and dry. Neurological: General: No focal deficit present. Mental Status: She is alert and oriented to person, place, and time. Mental status is at baseline. Sensory: No sensory deficit. Motor: Weakness (3/5 strength diffusely to left lower extremity) present. Coordination: Coordination normal. LAB RESULTS Recent Results (from the past 24 hours) Comprehensive Metabolic Panel Collection Time: 07/14/25 10:06 PM Specimen: Blood Result Value Ref Range Glucose 133 (H) 65 - 99 mg/dL BUN 27.0 (H) 8.0 - 23.0 mg/dL Creatinine 1.66 (H) 0.57 - 1.00 mg/dL Sodium 142 136 - 145 mmol/L Potassium 4.3 3.5 - 5.2 mmol/L Chloride 103 98 - 107 mmol/L CO2 25.5 22.0 - 29.0 mmol/L Calcium 9.8 8.6 - 10.5 mg/dL Total Protein 7.3 6.0 - 8.5 g/dL Albumin 4.0 3.5 - 5.2 g/dL ALT (SGPT) 28 1 - 33 U/L AST (SGOT) 40 (H) 1 - 32 U/L Alkaline Phosphatase 151 (H) 39 - 117 U/L Total Bilirubin 0.4 0.0 - 1.2 mg/dL Globulin 3.3 gm/dL A/G Ratio 1.2 g/dL BUN/Creatinine Ratio 16.3 7.0 - 25.0 Anion Gap 13.5 5.0 - 15.0 mmol/L eGFR 34.3 (L) >60.0 mL/min/1.73 CBC Auto Differential Collection Time: 07/14/25 10:06 PM Specimen: Blood Result Value Ref Range WBC 4.79 3.40 - 10.80 10*3/mm3 RBC 3.17 (L) 3.77 - 5.28 10*6/mm3 Hemoglobin 8.1 (L) 12.0 - 15.9 g/dL Hematocrit 26.7 (L) 34.0 - 46.6 % MCV 84.2 79.0 - 97.0 fL MCH 25.6 (L) 26.6 - 33.0 pg MCHC 30.3 (L) 31.5 - 35.7 g/dL RDW 16.8 (H) 12.3 - 15.4 % RDW-SD 51.1 37.0 - 54.0 fl MPV 9.5 6.0 - 12.0 fL Platelets 90 (L) 140 - 450 10*3/mm3 Neutrophil % 81.4 (H) 42.7 - 76.0 % Lymphocyte % 9.2 (L) 19.6 - 45.3 % Monocyte % 8.4 5.0 - 12.0 % Eosinophil % 0.4 0.3 - 6.2 % Basophil % 0.2 0.0 - 1.5 % Immature Grans % 0.4 0.0 - 0.5 % Neutrophils, Absolute 3.90 1.70 - 7.00 10*3/mm3 Lymphocytes, Absolute 0.44 (L) 0.70 - 3.10 10*3/mm3 Monocytes, Absolute 0.40 0.10 - 0.90 10*3/mm3 Eosinophils, Absolute 0.02 0.00 - 0.40 10*3/mm3 Basophils, Absolute 0.01 0.00 - 0.20 10*3/mm3 Immature Grans, Absolute 0.02 0.00 - 0.05 10*3/mm3 nRBC 0.0 0.0 - 0.2 /100 WBC Urinalysis With Microscopic If Indicated (No Culture) - Urine, Clean Catch Collection Time: 07/14/25 10:43 PM Specimen: Urine, Clean Catch Result Value Ref Range Color, UA Yellow Yellow, Straw Appearance, UA Clear Clear pH, UA 7.5 5.0 - 8.0 Specific [place], UA 1.011 1.005 - 1.030 Glucose, UA Negative Negative Ketones, UA Negative Negative Bilirubin, UA Negative Negative Blood, UA Small (1+) (A) Negative Protein, UA 30 mg/dL (1+) (A) Negative Leuk Esterase, UA Trace (A) Negative Nitrite, UA Negative Negative Urobilinogen, UA 0.2 E.U./dL 0.2 - 1.0 E.U./dL Urinalysis, Microscopic Only - Urine, Clean Catch Collection Time: 07/14/25 10:43 PM Specimen: Urine, Clean Catch Result Value Ref Range RBC, UA 3-5 (A) None Seen, 0-2 /HPF WBC, UA 0-2 None Seen, 0-2 /HPF Bacteria, UA None Seen None Seen /HPF Squamous Epithelial Cells, UA 0-2 None Seen, 0-2 /HPF Hyaline Casts, UA None Seen None Seen /LPF Methodology Automated Microscopy Ordered the above labs and independently reviewed the results. RADIOLOGY MRI Lumbar Spine With & Without Contrast Result Date: 07/15/2025 MRI LUMBAR SPINE W WO CONTRAST Date of Exam: 2025 11:15 PM EDT Indication: eval cauda equina,mets, fxr. Comparison: CT lumbar 2025 and MR lumbar spine 12/17/2021. Technique: Routine multiplanar/multisequence sequence images of the lumbar spine were obtained before and after the uneventful administration of Vueway. Findings: There is redemonstration of an avidly enhancing metastasis occ upying the right and posterior aspects of the T12 vertebral body extending into the right 12th rib and transverse process with associated bone destruction and soft tissue mass. There are multiple additional lumbar spinal metastasis that appear mixed signal intensity without significant enhancement.Metastatic lesions are noted at L3, L4, L5 and S1. There is stable posterior inferior endplate compression fracture at L4, which appears pathologic and is associated with an intravertebral disc herniation. This results in retropulsion of the posterior cortex up to 6 mm and results in high-grade spinal canal stenosis with compression of the cauda equina. There is an additional metastasis in the right ilium. Compared with the MRI dated 12/17/2021, the majority of the metastasis appear to have decreased in size and appear less sclerotic, but the large enhancing metastasis in the T12 vertebral body and right 12th rib appears new from 2021. There is no new fracture. There is mild to moderate diffuse disc space narrowing and mild to moderate diffuse facet arthritis most pronounced in the lower lumbar spine. At L1-L2, there is concentric disc bulge and mild facet and ligamentum flavum hypertrophy without neuroforaminal or spinal canal compromise. At L2-L3, there is concentric disc bulge and mild facet and ligamentum flavum hypertrophy resulting in mild bilateral neuroforaminal narrowing andmild narrowing of the spinal canal. At L3-L4, there are similar degenerative changes with mild to moderate bilateral neuroforaminal narrowing and mild narrowing of the spinal canal. At L4-L5, there is concentric disc bulge and retropulsion as discussed above with moderate facet and ligamentum flavum hypertrophy resulting in severe narrowing of the spinal canal with compression of the cauda equinaand moderate bilateral neuroforaminal narrowing. At L5-S1, there is concentric disc bulge and mild facet arthropathy contributing to mild bilateral neuroforaminal narrowing. There is preservation of the posterior paraspinal musculature. There is a hypointense structure in the inferior left kidney likely corresponding to a large kidney stone. Impression: 1.Multiple osseous metastasis in the lumbar spine and right ilium. The majority of the metastasis appear to have decreased in size and appear less sclerotic, but the large enhancing metastasis in the T12 vertebral body and right 12th rib appears new from 2021. 2.Stable pathologic compression fracture at L4 with retropulsion of the posterior cortex resulting in high-grade spinal canal stenosis with compression of the cauda equina. 3.Moderate lumbar spondylosis with varying degrees ofneuroforaminal and spinal canal narrowing as described. Electronically Signed: Homero Perez MD 07/15/2025 12:09 AM EDT Workstation ID: [id number] XR Hips Bilateral With or Without Pelvis 5 View Result Date: 07/15/2025 XR FEMUR 2 VW LEFT XR TIBIA FIBULA 2 VW LEFT XR HIPS BILATERAL W OR WO PELVIS 5 VIEW Date of Exam: 2025 11:03 PM EDT Indication: fall, LLE pain/weakness, eval fxr and metastasis. Comparison: None available. Findings: The bony pelvis appears intact without fracture. There is severe diffuse pelvic and trochanteric enthesopathy. Mild symmetric SI joint degeneration. Pubic symphysis and obturato r rings appear intact. There is minimal lumbar spondylosis. There are dilated small bowel loops in the central abdomen measuring up to 3.6 cm diameter. There is also mild colonic fecal retention. There is moderate osteoarthritis of both hips. No evidence of hip fracture or dislocation. The mid and distal left femur appears intact without fracture. There is minimal degenerative change at the knee.The bones are diffusely demineralized. The left tibia and fibula appear intact without fracture or dislocation. Joint spaces at the knee and ankle appear well-maintained. Impression: 1.No acute osseous abnormality. 2.Moderate osteoarthritis of both hips. 3.Severe diffuse pelvic and trochanteric enthesopathy. 4.Dilated small bowel loops in the central abdomen. Correlate for ileus or obstruction. Electronically Signed: Homero Perez MD 07/15/2025 12:01 AM EDT Workstation ID: [id number] XR Femur 2 View Left Result Date: 07/15/2025 XR FEMUR 2 VW LEFT XR TIBIA FIBULA 2 VW LEFT XR HIPS BILATERAL W OR WO PELVIS 5 VIEW Date of Exam: 2025 11:03 PM EDT Indication: fall, LLE pain/weakness, eval fxr and metastasis. Comparison: None available. Findings: The bony pelvis appears intact without fracture. There is severe diffuse pelvic and trochanteric enthesopathy. Mild symmetric SI joint degeneration. Pubic symphysis and obturato r rings appear intact. There is minimal lumbar spondylosis. There are dilated small bowel loops in the central abdomen measuring up to 3.6 cm diameter. There is also mild colonic fecal retention. There is moderate osteoarthritis of both hips. No evidence of hip fracture or dislocation. The mid and distal left femur appears intact without fracture. There is minimal degenerative change at the knee.The bones are diffusely demineralized. The left tibia and fibula appear intact without fracture or dislocation. Joint spaces at the knee and ankle appear well-maintained. Impression: 1.No acute osseous abnormality. 2.Moderate osteoarthritis of both hips. 3.Severe diffuse pelvic and trochanteric enthesopathy. 4.Dilated small bowel loops in the central abdomen. Correlate for ileus or obstruction. Electronically Signed: Homero Perez MD 07/15/2025 12:01 AM EDT Workstation ID: [id number] XR Tibia Fibula 2 View Left Result Date: 07/15/2025 XR FEMUR 2 VW LEFT XR TIBIA FIBULA 2 VW LEFT XR HIPS BILATERAL W OR WO PELVIS 5 VIEW Date of Exam: 2025 11:03 PM EDT Indication: fall, LLE pain/weakness, eval fxr and metastasis. Comparison: None available. Findings: The bony pelvis appears intact without fracture. There is severe diffuse pelvic and trochanteric enthesopathy. Mild symmetric SI joint degeneration. Pubic symphysis and obturato r rings appear intact. There is minimal lumbar spondylosis. There are dilated small bowel loops in the central abdomen measuring up to 3.6 cm diameter. There is also mild colonic fecal retention. There is moderate osteoarthritis of both hips. No evidence of hip fracture or dislocation. The mid and distal left femur appears intact without fracture. There is minimal degenerative change at the knee.The bones are diffusely demineralized. The left tibia and fibula appear intact without fracture or dislocation. Joint spaces at the knee and ankle appear well-maintained. Impression: 1.No acute osseous abnormality. 2.Moderate osteoarthritis of both hips. 3.Severe diffuse pelvic and trochanteric enthesopathy. 4.Dilated small bowel loops in the central abdomen. Correlate for ileus or obstruction. Electronically Signed: Homero Perez MD 07/15/2025 12:01 AM EDT Workstation ID: [id number] XR Chest 1 View Result Date: 2025 XR CHEST 1 VW Date of Exam: 2025 11:02 PM EDT Indication: fall. Comparison: Chest CT 06/10/2025. Findings: Stable right chest port. There is no pneumothorax, pleural effusion or focal airspace consolidation. Heart size and pulmonary vasculature appear within normal limits. Stable destructive lytic lesion noted at the right second rib. No acute osseous abnormality. Impression: 1.No acute cardiopulmonary abnormality. 2.Stable destructive lytic lesion at the right second rib. Electronically Signed: Homero Perez MD 2025 11:58 PM EDT Workstation ID: [id number] MRI Brain With & Without Contrast Result Date: 2025 MRI BRAIN W WO CONTRAST Date of Exam: 2025 11:14 PM EDT Indication: fall, LLE pain/weakness, eval fxr and metastasis. Comparison: Head CT 2025. Technique: Routine multiplanar/multisequence sequence images of the brain were obtained before and after the uneventful administration of Vueway. Findings: There is no diffusion restriction to suggest an acute infarct. Midline structures appear intact. Calvarial and superficial soft tissue signal is within normal limits. The temporomandibular joints and parotid glands appear symmetric. Dentition appears unremarkable. There are multiple enlarging intracranial metastasis. This includes a nodular metastasis that appears dural based in the anterior right frontal region on postcontrast 3D T1 axial image 107 measuring 10 mm with an adjacent nodular component laterally measuring 5 mm. Enlarging right frontal periventricular metastasis measuring 6 mm on image 113 of the same series. There is progressive nodular enhancement within the superior left of midline cerebellum on axial image 52 measuring 7 mm diameter. Enlarging right occipital metastasis measuring 13 mm on image 64. Enlarging left cerebellar metastasis measuring up to 18 mm diameter on image 43. Progressive enhancement in the lateral right cerebellum measuring 9 mm on image46. Paramedian right cerebellar metastasis measuring 10 mm on image 32 is also progressive. No defin ite new metastatic lesions. There is increased edema associated with the left cerebellar lesion resulting in mild mass effect without midline shift or ventricular effacement. There is stable edema signal within the brain matter at the right occipital metastasis. There is otherwise stable mild chronic small vessel ischemic change. There is no herniation. No evidence of acute or chronic intracranial hemorrhage. No diffusion restriction to suggest acute infarct. Orbits are symmetric. There is leftfrontal sinus mucosal disease and there is a left mastoid effusion. The major arterial flow voids appear intact. There is abnormal high T2 signal within the central cervical spinal cord at the level of the dens, which is seen on the last few images. This does raise concern for a more distal cord metastasis or compression. Recommend cervical MRI with IV contrast. Impression: 1.Multiple enlarging intracranial metastasis. There is increased edema associated with the left cerebellar metastasis resulting in mild mass effect without midline shift or ventricular effacement. 2.Abnormal high T2 signal within the central cervical spinal cord at the level of the dens. This does raise concern for a more distal cord metastasis or compression. Recommend cervical MRI with IV contrast. 3.Stable mild chronic small vessel ischemic change. 4.Left frontal sinus mucosal disease and left mastoid effusion. Electronically Signed: Homero Perez MD 2025 11:45 PM EDT Workstation ID: [id number] CT Head Without Contrast Result Date: 2025 CT HEAD WO CONTRAST, CT LUMBAR SPINE WO CONTRAST, CT THORACIC SPINE WO CONTRAST, CT CERVICAL SPINE WO CONTRAST Date of Exam: 2025 9:24 PM EDT Indication: fall, LLE pain/weakness, eval fxr and metastasis. Comparison: Brain MRI 06/10/2025, CT chest abdomen pelvis 06/10/2025, CT soft tissue neck 11/27/2024 Technique: Axial CT images were obtained of the head and total spine without contrast administration. Automated exposure control and iterative construction methods were used. Findings: Head CT: Vague hypodensity in the right occipital lobe and left cerebellar hemisphere unchanged from priorMRI. These are in keeping with known intracranial metastases. Negative for large territory infarct,acute intracranial hemorrhage, midline shift or hydrocephalus. Mild periventricular hypodensity favoring sequelae of chronic microvascular ischemic change. No large extra-axial fluid collection. Orbits are symmetric. No obstructive sinus disease. No large mastoid effusion. No aggressive bone lesion or displaced fracture. Cervical spine: Osseous metastases without significant change from prior CT neck comparison. No visualized displaced fracture, vertebral body height loss or malalignment. Minimal degenerative disc disease. Overall mild facet arthropathy. Negative for high-grade central spinalcanal stenosis. Severe right neuroforaminal stenosis C3-C4 similar to prior, other show low-grade stenosis. Similar heterogeneous enlargement of the right thyroid gland outpatient thyroid ultrasound could be considered. Partially imaged right IJ central catheter. No suspicious adenopathy in the neck. Thoracic spine: Heterogeneous mixed lucent and sclerotic metastases without significant change from prior exam. Mild chronic superior endplate height loss of T1 and T10. There is multilevel degenerative change without high-grade central spinal canal stenosis. Severe neuroforaminal stenosis on theleft at T10-T11 and T11-T12 similar to prior exam. Heterogeneous more expansile rib lesions noted most significant involving the second, right posterior ninth and right posterior 12th ribs. Few chronic appearing nondisplaced rib fractures stable from prior pulse representing prior pathologic fractures. Right IJ central catheter terminates near the cavoatrial junction. No suspicious mediastinal orhilar adenopathy. Few pulmonary nodules measuring up to 6 mm left upper lobe image 54 series 2 uncha nged from 06/10/2025 CT comparison. Splenomegaly measuring up to 13 cm in maximum AP dimension without significant change from prior exam. Lumbar spine: Mixed lucent and sclerotic metastases without significant change from prior exam. Suspect old pathologic fracture with bony retropulsion at L4 by up to 4 mm image 33 series 5 unchanged from 06/10/2025 CT comparison. This may result in high- grade central spinal canal stenosis similar to prior exam. No visualized displaced acute fracture, vertebralbody height loss or traumatic malalignment of the lumbar spine. Multilevel degenerative disc disease and facet arthropathy with probably mild to moderate central spinal canal stenosis L2-L3 and L3-L4. Varying degrees of neuroforaminal stenosis up to moderate severity bilaterally L3-L4, severe rightmoderate to severe left L4-L5 and moderate bilateral L5-S1 probably similar to prior comparison. Novisualized retroperitoneal adenopathy. Few nonobstructing renal calculi largest in the left inferior pole measuring up to 1.3 cm unchanged from prior exam. Impression: 1. Grossly stable mixed lucent and sclerotic osseous metastases detailed above comparedto prior CT imaging comparisons. No new suspicious pathologic fracture. 2. Similar-appearing probable old pathologic fracture at L4 with bony retropulsion resulting in possible high-grade central spinal canal stenosis. This could be assessed by MRI as clinically indicated. 3. Similar hypodense lesions in the right occipital lobe and left cerebellum, in keeping with intracranial metastases noted on prior contrasted MRI comparisons. 4. Stable small pulmonary nodules. Stable splenomegaly. No enlarging adenopathy to suggest disease progression. 5. Other chronic/ancillary findings as above. Electronically Signed: Galen Hawley MD 2025 10:10 PM EDT Workstation ID: [id number] CT Cervical Spine Without Contrast Result Date: 2025 CT HEAD WO CONTRAST, CT LUMBAR SPINE WO CONTRAST, CT THORACIC SPINE WO CONTRAST, CT CERVICAL SPINE WO CONTRAST Date of Exam: 2025 9:24 PM EDT Indication: fall, LLE pain/weakness, eval fxr and metastasis. Comparison: Brain MRI 06/10/2025, CT chest abdomen pelvis 06/10/2025, CT soft tissue neck 11/27/2024 Technique: Axial CT images were obtained of the head and total spine without contrast administration. Automated exposure control and iterative construction methods were used. Findings: Head CT: Vague hypodensity in the right occipital lobe and left cerebellar hemisphere unchanged from priorMRI. These are in keeping with known intracranial metastases. Negative for large territory infarct,acute intracranial hemorrhage, midline shift or hydrocephalus. Mild periventricular hypodensity favoring sequelae of chronic microvascular ischemic change. No large extra-axial fluid collection. Orbits are symmetric. No obstructive sinus disease. No large mastoid effusion. No aggressive bone lesion or displaced fracture. Cervical spine: Osseous metastases without significant change from prior CT neck comparison. No visualized displaced fracture, vertebral body height loss or malalignment. Minimal degenerative disc disease. Overall mild facet arthropathy. Negative for high-grade central spinalcanal stenosis. Severe right neuroforaminal stenosis C3-C4 similar to prior, other show low-grade stenosis. Similar heterogeneous enlargement of the right thyroid gland outpatient thyroid ultrasound could be considered. Partially imaged right IJ central catheter. No suspicious adenopathy in the neck. Thoracic spine: Heterogeneous mixed lucent and sclerotic metastases without significant change from prior exam. Mild chronic superior endplate height loss of T1 and T10. There is multilevel degenerative change without high-grade central spinal canal stenosis. Severe neuroforaminal stenosis on theleft at T10-T11 and T11-T12 similar to prior exam. Heterogeneous more expansile rib lesions noted most significant involving the second, right posterior ninth and right posterior 12th ribs. Few chronic appearing nondisplaced rib fractures stable from prior pulse representing prior pathologic fractures. Right IJ central catheter terminates near the cavoatrial junction. No suspicious mediastinal orhilar adenopathy. Few pulmonary nodules measuring up to 6 mm left upper lobe image 54 series 2 uncha nged from 06/10/2025 CT comparison. Splenomegaly measuring up to 13 cm in maximum AP dimension without significant change from prior exam. Lumbar spine: Mixed lucent and sclerotic metastases without significant change from prior exam. Suspect old pathologic fracture with bony retropulsion at L4 by up to 4 mm image 33 series 5 unchanged from 06/10/2025 CT comparison. This may result in high- grade central spinal canal stenosis similar to prior exam. No visualized displaced acute fracture, vertebralbody height loss or traumatic malalignment of the lumbar spine. Multilevel degenerative disc disease and facet arthropathy with probably mild to moderate central spinal canal stenosis L2-L3 and L3-L4. Varying degrees of neuroforaminal stenosis up to moderate severity bilaterally L3-L4, severe rightmoderate to severe left L4-L5 and moderate bilateral L5-S1 probably similar to prior comparison. Novisualized retroperitoneal adenopathy. Few nonobstructing renal calculi largest in the left inferior pole measuring up to 1.3 cm unchanged from prior exam. Impression: 1. Grossly stable mixed lucent and sclerotic osseous metastases detailed above comparedto prior CT imaging comparisons. No new suspicious pathologic fracture. 2. Similar-appearing probable old pathologic fracture at L4 with bony retropulsion resulting in possible high-grade central spinal canal stenosis. This could be assessed by MRI as clinically indicated. 3. Similar hypodense lesions in the right occipital lobe and left cerebellum, in keeping with intracranial metastases noted on prior contrasted MRI comparisons. 4. Stable small pulmonary nodules. Stable splenomegaly. No enlarging adenopathy to suggest disease progression. 5. Other chronic/ancillary findings as above. Electronically Signed: Galen Hawley MD 2025 10:10 PM EDT Workstation ID: [id number] CT Thoracic Spine Without Contrast Result Date: 2025 CT HEAD WO CONTRAST, CT LUMBAR SPINE WO CONTRAST, CT THORACIC SPINE WO CONTRAST, CT CERVICAL SPINE WO CONTRAST Date of Exam: 2025 9:24 PM EDT Indication: fall, LLE pain/weakness, eval fxr and metastasis. Comparison: Brain MRI 06/10/2025, CT chest abdomen pelvis 06/10/2025, CT soft tissue neck 11/27/2024 Technique: Axial CT images were obtained of the head and total spine without contrast administration. Automated exposure control and iterative construction methods were used. Findings: Head CT: Vague hypodensity in the right occipital lobe and left cerebellar hemisphere unchanged from priorMRI. These are in keeping with known intracranial metastases. Negative for large territory infarct,acute intracranial hemorrhage, midline shift or hydrocephalus. Mild periventricular hypodensity favoring sequelae of chronic microvascular ischemic change. No large extra-axial fluid collection. Orbits are symmetric. No obstructive sinus disease. No large mastoid effusion. No aggressive bone lesion or displaced fracture. Cervical spine: Osseous metastases without significant change from prior CT neck comparison. No visualized displaced fracture, vertebral body height loss or malalignment. Minimal degenerative disc disease. Overall mild facet arthropathy. Negative for high-grade central spinalcanal stenosis. Severe right neuroforaminal stenosis C3-C4 similar to prior, other show low-grade stenosis. Similar heterogeneous enlargement of the right thyroid gland outpatient thyroid ultrasound could be considered. Partially imaged right IJ central catheter. No suspicious adenopathy in the neck. Thoracic spine: Heterogeneous mixed lucent and sclerotic metastases without significant change from prior exam. Mild chronic superior endplate height loss of T1 and T10. There is multilevel degenerative change without high-grade central spinal canal stenosis. Severe neuroforaminal stenosis on theleft at T10-T11 and T11-T12 similar to prior exam. Heterogeneous more expansile rib lesions noted most significant involving the second, right posterior ninth and right posterior 12th ribs. Few chronic appearing nondisplaced rib fractures stable from prior pulse representing prior pathologic fractures. Right IJ central catheter terminates near the cavoatrial junction. No suspicious mediastinal orhilar adenopathy. Few pulmonary nodules measuring up to 6 mm left upper lobe image 54 series 2 uncha nged from 06/10/2025 CT comparison. Splenomegaly measuring up to 13 cm in maximum AP dimension without significant change from prior exam. Lumbar spine: Mixed lucent and sclerotic metastases without significant change from prior exam. Suspect old pathologic fracture with bony retropulsion at L4 by up to 4 mm image 33 series 5 unchanged from 06/10/2025 CT comparison. This may result in high- grade central spinal canal stenosis similar to prior exam. No visualized displaced acute fracture, vertebralbody height loss or traumatic malalignment of the lumbar spine. Multilevel degenerative disc disease and facet arthropathy with probably mild to moderate central spinal canal stenosis L2-L3 and L3-L4. Varying degrees of neuroforaminal stenosis up to moderate severity bilaterally L3-L4, severe rightmoderate to severe left L4-L5 and moderate bilateral L5-S1 probably similar to prior comparison. Novisualized retroperitoneal adenopathy. Few nonobstructing renal calculi largest in the left inferior pole measuring up to 1.3 cm unchanged from prior exam. Impression: 1. Grossly stable mixed lucent and sclerotic osseous metastases detailed above comparedto prior CT imaging comparisons. No new suspicious pathologic fracture. 2. Similar-appearing probable old pathologic fracture at L4 with bony retropulsion resulting in possible high-grade central spinal canal stenosis. This could be assessed by MRI as clinically indicated. 3. Similar hypodense lesions in the right occipital lobe and left cerebellum, in keeping with intracranial metastases noted on prior contrasted MRI comparisons. 4. Stable small pulmonary nodules. Stable splenomegaly. No enlarging adenopathy to suggest disease progression. 5. Other chronic/ancillary findings as above. Electronically Signed: Galen Hawley MD 2025 10:10 PM EDT Workstation ID: [id number] CT Lumbar Spine Without Contrast Result Date: 2025 CT HEAD WO CONTRAST, CT LUMBAR SPINE WO CONTRAST, CT THORACIC SPINE WO CONTRAST, CT CERVICAL SPINE WO CONTRAST Date of Exam: 2025 9:24 PM EDT Indication: fall, LLE pain/weakness, eval fxr and metastasis. Comparison: Brain MRI 06/10/2025, CT chest abdomen pelvis 06/10/2025, CT soft tissue neck 11/27/2024 Technique: Axial CT images were obtained of the head and total spine without contrast administration. Automated exposure control and iterative construction methods were used. Findings: Head CT: Vague hypodensity in the right occipital lobe and left cerebellar hemisphere unchanged from priorMRI. These are in keeping with known intracranial metastases. Negative for large territory infarct,acute intracranial hemorrhage, midline shift or hydrocephalus. Mild periventricular hypodensity favoring sequelae of chronic microvascular ischemic change. No large extra-axial fluid collection. Orbits are symmetric. No obstructive sinus disease. No large mastoid effusion. No aggressive bone lesion or displaced fracture. Cervical spine: Osseous metastases without significant change from prior CT neck comparison. No visualized displaced fracture, vertebral body height loss or malalignment. Minimal degenerative disc disease. Overall mild facet arthropathy. Negative for high-grade central spinalcanal stenosis. Severe right neuroforaminal stenosis C3-C4 similar to prior, other show low-grade stenosis. Similar heterogeneous enlargement of the right thyroid gland outpatient thyroid ultrasound could be considered. Partially imaged right IJ central catheter. No suspicious adenopathy in the neck. Thoracic spine: Heterogeneous mixed lucent and sclerotic metastases without significant change from prior exam. Mild chronic superior endplate height loss of T1 and T10. There is multilevel degenerative change without high-grade central spinal canal stenosis. Severe neuroforaminal stenosis on theleft at T10-T11 and T11-T12 similar to prior exam. Heterogeneous more expansile rib lesions noted most significant involving the second, right posterior ninth and right posterior 12th ribs. Few chronic appearing nondisplaced rib fractures stable from prior pulse representing prior pathologic fractures. Right IJ central catheter terminates near the cavoatrial junction. No suspicious mediastinal orhilar adenopathy. Few pulmonary nodules measuring up to 6 mm left upper lobe image 54 series 2 uncha nged from 06/10/2025 CT comparison. Splenomegaly measuring up to 13 cm in maximum AP dimension without significant change from prior exam. Lumbar spine: Mixed lucent and sclerotic metastases without significant change from prior exam. Suspect old pathologic fracture with bony retropulsion at L4 by up to 4 mm image 33 series 5 unchanged from 06/10/2025 CT comparison. This may result in high- grade central spinal canal stenosis similar to prior exam. No visualized displaced acute fracture, vertebralbody height loss or traumatic malalignment of the lumbar spine. Multilevel degenerative disc disease and facet arthropathy with probably mild to moderate central spinal canal stenosis L2-L3 and L3-L4. Varying degrees of neuroforaminal stenosis up to moderate severity bilaterally L3-L4, severe rightmoderate to severe left L4-L5 and moderate bilateral L5-S1 probably similar to prior comparison. Novisualized retroperitoneal adenopathy. Few nonobstructing renal calculi largest in the left inferior pole measuring up to 1.3 cm unchanged from prior exam. Impression: 1. Grossly stable mixed lucent and sclerotic osseous metastases detailed above comparedto prior CT imaging comparisons. No new suspicious pathologic fracture. 2. Similar-appearing probable old pathologic fracture at L4 with bony retropulsion resulting in possible high-grade central spinal canal stenosis. This could be assessed by MRI as clinically indicated. 3. Similar hypodense lesions in the right occipital lobe and left cerebellum, in keeping with intracranial metastases noted on prior contrasted MRI comparisons. 4. Stable small pulmonary nodules. Stable splenomegaly. No enlarging adenopathy to suggest disease progression. 5. Other chronic/ancillary findings as above. Electronically Signed: Galen Hawley MD 2025 10:10 PM EDT Workstation ID: [id number] I ordered the above noted radiological studies. Reviewed by me and final interpretation per radiologist. See dictation for official radiology interpretation. PROCEDURES Procedures PROGRESS, DATA ANALYSIS, CONSULTS, AND MEDICAL DECISION MAKING Peter Parnell is a 65 y.o. female who presents to the ED w/ gait instability, frequent falls, left leg weakness. Patient's comorbidities include breast cancer which are not at goal therapy and Increase risk of morbidity/mortality and May be exacerbating symptoms. DDx: Differential Diagnosis includes but is not limited to intracranial metastasis, cauda equina syndrome, cord compression syndrome, compression fracture Additional sources: - External record review: [facility] records were reviewed, notable for oncology note from 06/16/2025, significant for past medical history as noted above. - Discussed/ obtained information from independent historians: None - Social determinants of health complicating aspects of patients care: None The following medications were given/orders placed: Recent Results (from the past 24 hours) Comprehensive Metabolic Panel Collection Time: 07/14/25 10:06 PM Specimen: Blood Result Value Ref Range Glucose 133 (H) 65 - 99 mg/dL BUN 27.0 (H) 8.0 - 23.0 mg/dL Creatinine 1.66 (H) 0.57 - 1.00 mg/dL Sodium 142 136 - 145 mmol/L Potassium 4.3 3.5 - 5.2 mmol/L Chloride 103 98 - 107 mmol/L CO2 25.5 22.0 - 29.0 mmol/L Calcium 9.8 8.6 - 10.5 mg/dL Total Protein 7.3 6.0 - 8.5 g/dL Albumin 4.0 3.5 - 5.2 g/dL ALT (SGPT) 28 1 - 33 U/L AST (SGOT) 40 (H) 1 - 32 U/L Alkaline Phosphatase 151 (H) 39 - 117 U/L Total Bilirubin 0.4 0.0 - 1.2 mg/dL Globulin 3.3 gm/dL A/G Ratio 1.2 g/dL BUN/Creatinine Ratio 16.3 7.0 - 25.0 Anion Gap 13.5 5.0 - 15.0 mmol/L eGFR 34.3 (L) >60.0 mL/min/1.73 CBC Auto Differential Collection Time: 07/14/25 10:06 PM Specimen: Blood Result Value Ref Range WBC 4.79 3.40 - 10.80 10*3/mm3 RBC 3.17 (L) 3.77 - 5.28 10*6/mm3 Hemoglobin 8.1 (L) 12.0 - 15.9 g/dL Hematocrit 26.7 (L) 34.0 - 46.6 % MCV 84.2 79.0 - 97.0 fL MCH 25.6 (L) 26.6 - 33.0 pg MCHC 30.3 (L) 31.5 - 35.7 g/dL RDW 16.8 (H) 12.3 - 15.4 % RDW-SD 51.1 37.0 - 54.0 fl MPV 9.5 6.0 - 12.0 fL Platelets 90 (L) 140 - 450 10*3/mm3 Neutrophil % 81.4 (H) 42.7 - 76.0 % Lymphocyte % 9.2 (L) 19.6 - 45.3 % Monocyte % 8.4 5.0 - 12.0 % Eosinophil % 0.4 0.3 - 6.2 % Basophil % 0.2 0.0 - 1.5 % Immature Grans % 0.4 0.0 - 0.5 % Neutrophils, Absolute 3.90 1.70 - 7.00 10*3/mm3 Lymphocytes, Absolute 0.44 (L) 0.70 - 3.10 10*3/mm3 Monocytes, Absolute 0.40 0.10 - 0.90 10*3/mm3 Eosinophils, Absolute 0.02 0.00 - 0.40 10*3/mm3 Basophils, Absolute 0.01 0.00 - 0.20 10*3/mm3 Immature Grans, Absolute 0.02 0.00 - 0.05 10*3/mm3 nRBC 0.0 0.0 - 0.2 /100 WBC Urinalysis With Microscopic If Indicated (No Culture) - Urine, Clean Catch Collection Time: 07/14/25 10:43 PM Specimen: Urine, Clean Catch Result Value Ref Range Color, UA Yellow Yellow, Straw Appearance, UA Clear Clear pH, UA 7.5 5.0 - 8.0 Specific [place], UA 1.011 1.005 - 1.030 Glucose, UA Negative Negative Ketones, UA Negative Negative Bilirubin, UA Negative Negative Blood, UA Small (1+) (A) Negative Protein, UA 30 mg/dL (1+) (A) Negative Leuk Esterase, UA Trace (A) Negative Nitrite, UA Negative Negative Urobilinogen, UA 0.2 E.U./dL 0.2 - 1.0 E.U./dL Urinalysis, Microscopic Only - Urine, Clean Catch Collection Time: 07/14/25 10:43 PM Specimen: Urine, Clean Catch Result Value Ref Range RBC, UA 3-5 (A) None Seen, 0-2 /HPF WBC, UA 0-2 None Seen, 0-2 /HPF Bacteria, UA None Seen None Seen /HPF Squamous Epithelial Cells, UA 0-2 None Seen, 0-2 /HPF Hyaline Casts, UA None Seen None Seen /LPF Methodology Automated Microscopy Note: In addition to lab results from this visit, the labs listed above may include labs taken at another facility or during a different encounter within the last 24 hours. Please correlate lab timeswith ED admission and discharge times for further clarification of the services performed during this visit. XR Tibia Fibula 2 View Left Final Result Impression: 1.No acute osseous abnormality. 2.Moderate osteoarthritis of both hips. 3.Severe diffuse pelvic and trochanteric enthesopathy. 4.Dilated small bowel loops in the central abdomen. Correlate for ileus or obstruction. Electronically Signed: Homero Preez MD 07/15/2025 12:01 AM EDT Workstation ID: [id number] XR Hips Bilateral With or Without Pelvis 5 View Final Result Impression: 1.No acute osseous abnormality. 2.Moderate osteoarthritis of both hips. 3.Severe diffuse pelvic and trochanteric enthesopathy. 4.Dilated small bowel loops in the central abdomen. Correlate for ileus or obstruction. Electronically Signed: Homero Perez MD 07/15/2025 12:01 AM EDT Workstation ID: [id number] XR Femur 2 View Left Final Result Impression: 1.No acute osseous abnormality. 2.Moderate osteoarthritis of both hips. 3.Severe diffuse pelvic and trochanteric enthesopathy. 4.Dilated small bowel loops in the central abdomen. Correlate for ileus or obstruction. Electronically Signed: Homero Perez MD 07/15/2025 12:01 AM EDT Workstation ID: [id number] XR Chest 1 View Final Result Impression: 1.No acute cardiopulmonary abnormality. 2.Stable destructive lytic lesion at the right second rib. Electronically Signed: Homero Perez MD 2025 11:58 PM EDT Workstation ID: [id number] MRI Brain With & Without Contrast Final Result Impression: 1.Multiple enlarging intracranial metastasis. There is increased edema associated with the left cerebellar metastasis resulting in mild mass effect without midline shift or ventricular effacement. 2.Abnormal high T2 signal within the central cervical spinal cord at the level of the dens. This does raise concern for a more distal cord metastasis or compression. Recommend cervical MRI with IV contrast. 3.Stable mild chronic small vessel ischemic change. 4.Left frontal sinus mucosal disease and left mastoid effusion. Electronically Signed: Homero Perez MD 2025 11:45 PM EDT Workstation ID: [id number] MRI Lumbar Spine With & Without Contrast Final Result Impression: 1.Multiple osseous metastasis in the lumbar spine and right ilium. The majority of the metastasis appear to have decreased in size and appear less sclerotic, but the large enhancing metastasis in theT12 vertebral body and right 12th rib appears new from 2021. 2.Stable pathologic compression fracture at L4 with retropulsion of the posterior cortex resulting in high-grade spinal canal stenosis with compression of the cauda equina. 3.Moderate lumbar spondylosis with varying degrees of neuroforaminal and spinal canal narrowing as described. Electronically Signed: Homero Perez MD 07/15/2025 12:09 AM EDT Workstation ID: [id number] CT Head Without Contrast Final Result Impression: 1. Grossly stable mixed lucent and sclerotic osseous metastases detailed above compared to prior CTimaging comparisons. No new suspicious pathologic fracture. 2. Similar-appearing probable old pathologic fracture at L4 with bony retropulsion resulting in possible high-grade central spinal canal stenosis. This could be assessed by MRI as clinically indicated. 3. Similar hypodense lesions in the right occipital lobe and left cerebellum, in keeping with intracranial metastases noted on prior contrasted MRI comparisons. 4. Stable small pulmonary nodules. Stable splenomegaly. No enlarging adenopathy to suggest disease progression. 5. Other chronic/ancillary findings as above. Electronically Signed: Galen Hawley MD 2025 10:10 PM EDT Workstation ID: [id number] CT Cervical Spine Without Contrast Final Result Impression: 1. Grossly stable mixed lucent and sclerotic osseous metastases detailed above compared to prior CTimaging comparisons. No new suspicious pathologic fracture. 2. Similar-appearing probable old pathologic fracture at L4 with bony retropulsion resulting in possible high-grade central spinal canal stenosis. This could be assessed by MRI as clinically indicated. 3. Similar hypodense lesions in the right occipital lobe and left cerebellum, in keeping with intracranial metastases noted on prior contrasted MRI comparisons. 4. Stable small pulmonary nodules. Stable splenomegaly. No enlarging adenopathy to suggest disease progression. 5. Other chronic/ancillary findings as above. Electronically Signed: Galen Hawley MD 2025 10:10 PM EDT Workstation ID: [id number] CT Thoracic Spine Without Contrast Final Result Impression: 1. Grossly stable mixed lucent and sclerotic osseous metastases detailed above compared to prior CTimaging comparisons. No new suspicious pathologic fracture. 2. Similar-appearing probable old pathologic fracture at L4 with bony retropulsion resulting in possible high-grade central spinal canal stenosis. This could be assessed by MRI as clinically indicated. 3. Similar hypodense lesions in the right occipital lobe and left cerebellum, in keeping with intracranial metastases noted on prior contrasted MRI comparisons. 4. Stable small pulmonary nodules. Stable splenomegaly. No enlarging adenopathy to suggest disease progression. 5. Other chronic/ancillary findings as above. Electronically Signed: Galen Hawley MD 2025 10:10 PM EDT Workstation ID: [id number] CT Lumbar Spine Without Contrast Final Result Impression: 1. Grossly stable mixed lucent and sclerotic osseous metastases detailed above compared to prior CTimaging comparisons. No new suspicious pathologic fracture. 2. Similar-appearing probable old pathologic fracture at L4 with bony retropulsion resulting in possible high-grade central spinal canal stenosis. This could be assessed by MRI as clinically indicated. 3. Similar hypodense lesions in the right occipital lobe and left cerebellum, in keeping with intracranial metastases noted on prior contrasted MRI comparisons. 4. Stable small pulmonary nodules. Stable splenomegaly. No enlarging adenopathy to suggest disease progression. 5. Other chronic/ancillary findings as above. Electronically Signed: Galen Hawley MD 2025 10:10 PM EDT Workstation ID: [id number] MRI Cervical Spine With & Without Contrast (Results Pending) Vitals: 07/14/25 2200 07/15/25 0200 07/15/25 0230 07/15/25 0250 BP: 127/78 BP Location: Right arm Patient Position: Lying Pulse: 94 114 84 87 Resp: 18 Temp: 97.9 ??F (36.6 ??C) TempSrc: Oral SpO2: 95% 98% 98% Weight: 71 kg (156 lb 9.6 oz) Height: Medications Lidocaine 4 % 1 patch (1 patch Transdermal Medication Applied 07/14/252157) dexAMETHasone (DECADRON) injection 6 mg (has no administration in time range) sodium chloride 0.9 % flush 10 mL ( Intravenous Canceled Entry 07/15/25 9124) sodium chloride 0.9 % flush 10 mL (has no administration in time range) sodium chloride 0.9 % infusion 40 mL (has no administration in time range) nitroglycerin (NITROSTAT) SL tablet 0.4 mg (has no administration in time range) sodium chloride 0.9 % infusion (75 mL/hr Intravenous New Bag 07/15/25 7195) Potassium Replacement - Follow Nurse / BPA Driven Protocol (has no administration in time range) Magnesium Cardiology Dose Replacement - Follow Nurse / BPA Driven Protocol (has no administration in time range) Phosphorus Replacement - Follow Nurse / BPA Driven Protocol (has no administration in time range) Calcium Replacement - Follow Nurse / BPA Driven Protocol (has no administration in time range) pregabalin (LYRICA) capsule 75 mg (has no administration in time range) HYDROcodone-acetaminophen (NORCO) 7.5-325 MG per tablet 1 tablet (has no administration in time range) morphine injection 2 mg (has no administration in time range) And naloxone (NARCAN) injection 0.4 mg (has no administration in time range) ALPRAZolam (XANAX) tablet 0.5 mg (0.5 mg Oral Given 07/15/25316) sennosides-docusate (PERICOLACE) 8.6-50 MG per tablet 2 tablet (has no administration in time range) And polyethylene glycol (MIRALAX) packet 17 g (has no administration in time range) And bisacodyl (DULCOLAX) EC tablet 5 mg (has no administration in time range) And bisacodyl (DULCOLAX) suppository 10 mg (has no administration in time range) ondansetron (ZOFRAN) injection 4 mg (has no administration in time range) famotidine (PEPCID) tablet 40 mg (has no administration in time range) aluminum-magnesium hydroxide-simethicone (MAALOX MAX) 400-400-40 MG/5ML suspension 15 mL (has no administration in time range) dextrose (GLUTOSE) oral gel 15 g (has no administration in time range) dextrose (D50W) (25 g/50 mL) IV injection 25 g (has no administration in time range) glucagon (GLUCAGEN) injection 1 mg (has no administration in time range) insulin regular (humuLIN R,novoLIN R) injection 2-7 Units ( Subcutaneous Canceled Entry 07/15/25323) methocarbamol (ROBAXIN) tablet 1,500 mg (1,500 mg Oral Given 07/14/252157) acetaminophen (TYLENOL) tablet 1,000 mg (1,000 mg Oral Given 07/14/252157) oxyCODONE (ROXICODONE) immediate release tablet 5 mg (5 mg Oral Given 07/14/252156) dexAMETHasone (DECADRON) injection 10 mg (10 mg Intravenous Given 07/14/252220) Gadopiclenol (VUEWAY) injection 7.5 mL (7.5 mL Intravenous Given 07/14/255) sodium chloride 0.9 % bolus 500 mL (500 mL Intravenous New Bag 07/15/257) ECG/EMG Results (last 24 hours) No results found for the last 24 hours. ECG 12 Lead QT Measurement (Results Pending) All labs have been independently reviewed by me. All radiology studies have been reviewed by me andradiologist dictating the report. EKG's independently viewed and interpreted by me. Discussion below represents my analysis of pertinent findings related to patient's condition, differential diagnosis, treatment plan and final disposition. ED course: ED Course as of 07/15/25 0535 Wed 2025 2101 On arrival, patient is normotensive, mildly tachycardic to 103, afebrile. Diffuse 3 out of 5 strength to her left lower extremity. No significant deformity. Midline lumbar spine tenderness. Willobtain plain films and CT to rule out traumatic injury and MRI of the brain and lumbar spine to rule out cauda equina or intracranial metastasis. [AC] 2214 CT Head Without Contrast Independently interpreted by me, revealing hypodensities in the right occipital lobe and left cerebrum, agree with radiology report. This is noted to be similar to intracranial metastases noted on previous MRIs. Will follow-up on MRI today [AC] 2215 CT Cervical Spine Without Contrast No obvious new pathologic fractures noted. Radiology report does note old pathologic fracture at L4with bony retropulsion resulting with high-grade central spinal canal stenosis. Will follow this upon MRI. Will also presumptively administer dexamethasone and [AC] 2258 Creatinine(!): 1.66 Similar to baseline renal function [AC] 2311 Urinalysis With Microscopic If Indicated (No Culture) - Urine, Clean Catch(!) No UTI [AC] 2327 Hemoglobin(!): 8.1 Chronic anemia [AC] 2356 MRI Brain With & Without Contrast Radiology report: Impression:1.Multiple enlarging intracranial metastasis. There is increased edema associated with theleft cerebellar metastasis resulting in mild mass effect without midline shift or ventriculareffacement.2.Abnormal high T2 signal within the central cervical spinal cord at the level of the dens. Thisdoes raise concern for a more distal cord metastasis or compression. Recommend cervicalMRI with IVcontrast.3.Stable mild chronic small vessel ischemic change.4.Left frontal sinus mucosal disease and left mastoid effusion [AC] 2357 Will discuss with neurosurgery [AC] Lissette Jul 15, 2025 0008 XR Hips Bilateral With or Without Pelvis 5 View Independently interpreted by me, revealing no acute osseous pathology [AC] 0034 MRI Lumbar Spine With & Without Contrast Radiology report finalized as follows: Impression: 1.Multiple osseous metastasis in the lumbar spine and right ilium. The majority of the metastasis appear to have decreased in size and appear less sclerotic, but the large enhancing metastasis in theT12 vertebral body and right 12th rib appears new from 2021. 2.Stable pathologic compression fracture at L4 with retropulsion of the posterior cortex resulting in high-grade spinal canal stenosis with compression of the cauda equina. 3.Moderate lumbar spondylosis with varying degrees of neuroforaminal and spinal canal narrowing as described. [AC] 0035 This is concerning for cauda equina syndrome. Consulting neurosurgery immediately [AC] 0044 Discussed case and presentation with neurosurgery Lashell who recommended scheduled steroids and admission to medicine. They would evaluate patient in the morning. Discussed with hospitalist for admission [AC] ED Course User Index [AC] Carson Colvin MD Shared Decision Making: After my consideration of clinical presentation and any laboratory/radiology studies obtained, I discussed the findings with the patient/patient food service representative who is in agreement with the treatment plan and the final disposition. Risks and benefits of discharge and/or observation/admission were discussed. Ultimately, the patient was admitted. OF 05:35 EDT VITALS: BP - 127/78 HR - 87 TEMP - 97.9 ??F (36.6 ??C) (Oral) O2 SATS - 98% DIAGNOSIS Final diagnoses: Cauda equina syndrome Metastatic malignant neoplasm, unspecified site DISPOSITION ED Disposition ED Disposition Decision to Admit Condition -- Comment Level of Care: Telemetry [5] Diagnosis: Cauda equina syndrome [[id number]] Admitting Physician: MEAGHAN GUERRIER [[id number]] Certification: I Certify That Inpatient Hospital Services Are Medically Necessary For Greater Than 2 Midnights No follow-up provider specified. Medication List ASK your doctor about these medications metFORMIN 500 MG tablet Commonly known as: GLUCOPHAGE Take 5 tablets by mouth Daily. Ask about: Which instructions should I use? ondansetron 8 MG tablet Commonly known as: ZOFRAN Take 1 tablet by mouth 3 (Three) Times a Day As Needed for Nausea or Vomiting. Ask about: Which instructions should I use? Please note that portions of this document were completed with voice recognition software. [1] Social History Socioeconomic History Marital status: Tobacco Use Smoking status: Never Smokeless tobacco: Never Vaping Use Vaping status: Never Used Substance and Sexual Activity Alcohol use: Not Currently Drug use: No Sexual activity: Defer Partners: Male Comment: Carson Colvin MD 07/15/25 0536 documented in this encounter Miscellaneous Notes * Case Management/Social Work - Rehana Marshall, RN - 07/27/2025 11:51 AM EDT Continued Stay Note Alessia Patient Name: Peter Parnell Today's Date: 07/27/2025 Admit Date: 2025 Plan: Home Discharge Plan Row Name 07/27/25 1149 Plan Plan Comments CM has a long discussion with pt and her sisters that therapy is recommending rehab for pt prior to returning home. Pt is insisting on returning home and states her sisters can assist during the day and her will be to assist in the evenings and night. CM had the RN demonstratehow to assist transferring pt to her wheelchair via her walker and her sisters report they can manage this. A referral for outpt PT has been made at pts request and a copy of the order is on the chartlet for pt at discharge. At this time there are no HH in her area that are in network with her insurance. Walker, wheelchair, and bedside commode have been delivered via [employer]. Pt and family are in agreement with plan. Discharge Codes No documentation. Expected Discharge Date and Time Expected Discharge Date Expected Discharge Time Jul 27, 2025 Rehana Marshall RN * Therapy Treatment Note - Krysten Sexton, PT - 07/26/2025 2:50 PM EDT Images from the original note were not included. Patient Name: Peter Parnell : 1960 Today's Date: 07/26/2025 Admit Date: 2025 Visit Dx: ICD-10-CM ICD-9-CM 1. Cauda equina syndrome G83.4 344.60 2. Metastatic malignant neoplasm, unspecified site C79.9 199.1 3. Adenocarcinoma of 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 C50.912 174.9 C78.7 197.7 4. Malignant neoplasm of upper-outer quadrant of left breast in female, estrogen receptor positive C50.412 174.4 Z17.0 V86.0 5. Carcinoma of breast metastatic to bone, unspecified laterality C50.919 174.9 C79.51 198.5 6. 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 of 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 Breast cancer metastasized to bone Encounter for care related to vascular access port Chemotherapy-induced neuropathy Brain metastases Spinal cord mass Falls Anemia, chronic disease Thrombocytopenia Stage 3b chronic kidney disease Moderate protein-calorie malnutrition Past Medical History: Diagnosis Date Back problem Bone cancer Mets Breast cancer Diabetes mellitus Drug therapy 12/2013 History of radiation therapy 01/19/2022 L3-L5, sacrum History of radiation therapy 09/26/2022 Whole brain radiotherapy Hx of radiation therapy 04/2014 Kidney stone Liver carcinoma Mets Malignant neoplasm of upper-outer quadrant of left breast in female, estrogen receptor positive 08/22/2016 Neuropathy Radiation Past Surgical History: Procedure Laterality Date BREAST BIOPSY Left BREAST LUMPECTOMY Left 11/2013 CATARACT EXTRACTION Right 02/11/2024 HEAD/NECK LESION/CYST EXCISION Right 12/02/2020 Procedure: WIDE EXCISION MALIGNANT LESION OF SCALP; Surgeon: Evens Wagner MD; Location: [facility]; Service: General; Laterality: Right; LIVER BIOPSY 09/22/2019 OOPHORECTOMY PORTACATH PLACEMENT Right 2019 SKIN FULL THICKNESS GRAFT Right 12/02/2020 Procedure: FULL THICKNESS SKIN GRAFT, RESECTION OF TUMOR OF RIGHT NECK; Surgeon: Evens Wagner MD; Location: [facility]; Service: General; Laterality: Right; General Information Row Name 07/26/25 4012 Physical Therapy Time and Intention Document Type therapy note (daily note) -AB Mode of Treatment physical therapy;co-treatment -AB Row Name 07/26/25 1502 General Information Patient Profile Reviewed yes -AB Existing Precautions/Restrictions other (see comments);fall Metastatic Breast Cancer with brain andspinal lesions, L foot drop, L knee buckling -AB Barriers to Rehab medically complex;previous functional deficit;physical barrier -AB Row Name 07/26/25 1502 Cognition Orientation Status (Cognition) oriented x 4 -AB Row Name 07/26/25 1502 Safety Issues/Impairments Affecting Functional Mobility Safety Issues Affecting Function (Mobility) awareness of need for assistance;insight into deficits/self-awareness;safety precaution awareness;safety precautions follow-through/compliance;sequencing ab ilities;judgment -AB Impairments Affecting Function (Mobility) balance;coordination;endurance/activity tolerance;grasp;motor control;pain;strength -AB User Kemp (r) = Recorded By, (t) = Taken By, (c) = Cosigned By Initials Name Provider Type AB Kyrsten Sexton, PT Physical Therapist Mobility Row Name 07/26/25 1503 Bed Mobility Comment, (Bed Mobility) received and left UIC -AB Row Name 07/26/25 1503 Transfers Comment, (Transfers) Cues for hand placement and sequencing. Education provided to pt and family onrisk for falls. -AB Row Name 07/26/25 1503 Bed-Chair Transfer Bed-Chair Bollinger (Transfers) verbal cues;minimum assist (75% patient effort);1 person assist -AB Assistive Device (Bed-Chair Transfers) walker, front-wheeled -AB Comment, (Bed-Chair Transfer) chair>BSC -AB Row Name 07/26/25 150 Sit-Stand Transfer Sit-Stand Bollinger (Transfers) moderate assist (50% patient effort);1 person assist;verbal cues;nonverbal cues (demo/gesture) -AB Assistive Device (Sit-Stand Transfers) walker, front-wheeled -AB Comment, (Sit-Stand Transfer) Min A from chair. Mod A from w/c -AB Row Name 07/26/25 1503 Gait/Stairs (Locomotion) Bollinger Level (Gait) verbal cues;minimum assist (75% patient effort);1 person assist;1 person to manage equipment -AB Assistive Device (Gait) walker, front-wheeled -AB Patient was able to Ambulate yes -AB Distance in Feet (Gait) 15 +15 -AB Deviations/Abnormal Patterns (Gait) bilateral deviations;gait speed decreased;stride length decreased;ataxic;base of support, narrow -AB Bilateral Gait Deviations heel strike decreased -AB Left Sided Gait Deviations foot drop/toe drag;knee buckling, left side -AB Comment, (Gait/Stairs) Pt ambulated 15'+15' with seated rest break d/t L knee buckling. Cues provided for walker positioning. Close chair follow for safety. W/ pt's frequent L knee buckling, especially with fatigue, education provided on w/c being the safest option for mobility if pt decides to go home. -AB User Kemp (r) = Recorded By, (t) = Taken By, (c) = Cosigned By Initials Name Provider Type AB Krysten Sexton PT Physical Therapist Obj/Interventions Row Name 07/26/25 1507 Balance Balance Assessment sitting static balance;sitting dynamic balance;standing static balance;standing dynamic balance -AB Static Sitting Balance standby assist -AB Dynamic Sitting Balance standby assist -AB Position, Sitting Balance unsupported;sitting in chair -AB Static Standing Balance minimal assist -AB Dynamic Standing Balance minimal assist;1-person assist;1 person to manage equipment;verbal cues -AB Position/Device Used, Standing Balance supported;walker, front-wheeled -AB Balance Interventions sitting;standing;sit to stand;supported;static;dynamic;occupation based/functional task -AB Comment, Balance Unsteady w/ L knee buckling noted. -AB User Kemp (r) = Recorded By, (t) = Taken By, (c) = Cosigned By Initials Name Provider Type AB Krysten Sexton, PT Physical Therapist Goals/Plan No documentation. Clinical Impression Row Name 07/26/25 1508 Pain Pretreatment Pain Rating 0/10 - no pain -AB Posttreatment Pain Rating 0/10 - no pain -AB Row Name 07/26/25 1508 Plan of Care Review Plan of Care Reviewed With patient;family -AB Progress no change -AB Outcome Evaluation Pt continues to present below her functional baseline with weakness, impaired balance, and decreased endurance. She ambulated 15'+15' with min A and RW. L knee buckling noted with fatigue. Education provided to pt and family on risk for falls and home safety strategies if pt defers rehab. Further IPPT is warranted. Continue to rec d/c to SNF. -AB Row Name 07/26/25 1508 Vital Signs Pre Systolic BP Rehab 114 -AB Pre Treatment Diastolic BP 53 -AB O2 Delivery Pre Treatment room air -AB O2 Delivery Intra Treatment room air -AB O2 Delivery Post Treatment room air -AB Pre Patient Position Sitting -AB Intra Patient Position Standing -AB Post Patient Position Sitting -AB Row Name 07/26/25 1508 Positioning and Restraints Pre-Treatment Position sitting in chair/recliner -AB Post Treatment Position chair -AB In Chair notified nsg;reclined;sitting;call light within reach;encouraged to call for assist;exit alarm on;with family/caregiver;legs elevated;waffle cushion -AB User Kemp (r) = Recorded By, (t) = Taken By, (c) = Cosigned By Initials Name Provider Type Krysten Pradhan, PT Physical Therapist Outcome Measures Row Name 07/26/25 1513 07/26/25 0827 How much help from another person do you currently need... Turning from your back to your side while in flat bed without using bedrails? 3 -AB 3 -MAURICIO Moving from lying on back to sitting on the side of a flat bed without bedrails? 3 -AB 3 -MAURICIO Moving to and from a bed to a chair (including a wheelchair)? 3 -AB 2 -MAURICIO Standing up from a chair using your arms (e.g., wheelchair, bedside chair)? 2 - AB 2 -MAURICIO Climbing 3-5 steps with a railing? 2 -AB 1 -MAURICIO To walk in hospital room? 3 -AB 2 -MAURICIO AM-PAC 6 Clicks Score (PT) 16 -AB 13 -MAURICIO Highest Level of Mobility Goal Stand (1 or More Minutes)-5 -AB Move to Chair/Commode-4 -MAURICIO Row Name 07/26/25 1513 Functional Assessment Outcome Measure Options AM-PAC 6 Clicks Basic Mobility (PT) -AB User Kemp (r) = Recorded By, (t) = Taken By, (c) = Cosigned By Initials Name Provider Type Krysten Pradhan, PT Physical Therapist Sorin Coates, DERRICK Registered Nurse Physical Therapy Education Title: PT OT COMMAND AND CONTROL OFFICER Therapies (In Progress) Topic: Physical Therapy (In Progress) Point: Mobility training (Done) Learning Progress Summary Patient Acceptance, E,D, VU,NR by at 07/26/2025 1514 Acceptance, E, NR by at 07/25/2025 0919 Acceptance, E, NR by at 07/24/2025 1008 Acceptance, E,D, VU,NR by AB at 07/23/2025 1533 Acceptance, E,D, VU,NR by AB at 07/22/2025 1540 Acceptance, E, NR by KE at 07/19/2025 1335 Acceptance, E,D, NR by CT at 07/18/2025 1027 Eager, E,D, NR by CT at 07/17/2025 0920 Acceptance, E,TB, VU by AM at 07/16/20252246 Acceptance, E, VU by KE at 07/16/20251425 Acceptance, E, VU by KE at 07/15/2025 114 Point: Home exercise program (In Progress) Learning Progress Summary Patient Acceptance, E, NR by at 07/25/2025 0919 Acceptance, E, NR by at 07/24/2025 1008 Acceptance, E, NR by KE at 07/19/20255 Acceptance, E,D, NR by CT at 07/18/2025 102 Eager, E,D, NR by CT at 07/17/202520 Acceptance, E,TB, VU by AM at 07/16/20252246 Point: Body mechanics (Done) Learning Progress Summary Patient Acceptance, E,D, VU,NR by AB at 07/26/2025 1514 Acceptance, E, NR by at 07/25/2025 0919 Acceptance, E, NR by at 07/24/2025 1008 Acceptance, E,D, VU,NR by AB at 07/23/2025 1533 Acceptance, E,D, VU,NR by AB at 07/22/2025 1540 Acceptance, E, NR by KE at 07/19/2025 1335 Acceptance, E,D, NR by CT at 07/18/2025 1027 Eager, E,D, NR by CT at 07/17/2025 0920 Acceptance, E,TB, VU by AM at 07/16/20252246 Acceptance, E, VU by KE at 07/16/2025 142 Acceptance, E, VU by KE at 07/15/2025 1143 Point: Precautions (Done) Learning Progress Summary Patient Acceptance, E,D, VU,NR by AB at 07/26/2025 1514 Acceptance, E, NR by at 07/25/2025 0919 Acceptance, E, NR by at 07/24/2025 1008 Acceptance, E,D, VU,NR by AB at 07/23/2025 1533 Acceptance, E,D, VU,NR by AB at 07/22/2025 1540 Acceptance, E, NR by KE at 07/19/2025 1335 Acceptance, E,D, NR by CT at 07/18/2025 1027 Eager, E,D, NR by CT at 07/17/2025 0920 Acceptance, E,TB, VU by AM at 07/16/2025 2247 Acceptance, E, VU by KE at 07/16/2025 1426 Acceptance, E, VU by KE at 07/15/2025 1143 User Kemp Initials Effective Dates Name Provider Type Discipline 04/16/25 - Krysten Garvey, [employer] Physical Therapist Nurse [facility] PT CT 04/05/23 - Walter Pepe, PT Physical Therapist PT AB 06/21/22 - Krysten Sexton, PT Physical Therapist PT AM 03/23/25 - Mireya Landers, RN Registered Nurse Nurse 08/15/23 - Roxana Rahman, PT Physical Therapist PT PT Recommendation and Plan Recommended discharge disposition is based on the functional assessment performed by PT/OT/Speech therapy (as applicable) and may not reflect the medical necessity determined by your provider or services covered by an individual patient's insurance plan or patient resource. Progress: no change Outcome Evaluation: Pt continues to present below her functional baseline with weakness, impaired balance, and decreased endurance. She ambulated 15'+15' with min A and RW. L knee buckling noted withfatigue. Education provided to pt and family on risk for falls and home safety strategies if pt defers rehab. Further IPPT is warranted. Continue to rec d/c to SNF. Time Calculation: PT Charges Row Name 07/26/25 1514 Time Calculation Start Time 1450 -AB PT Received On 07/26/25 -AB Timed Charges 84874 - Gait Training Minutes 10 -AB 51360 - PT Therapeutic Activity Minutes 5 -AB Total Minutes Timed Charges Total Minutes 15 -AB Total Minutes 15 -AB User Kemp (r) = Recorded By, (t) = Taken By, (c) = Cosigned By Initials Name Provider Type AB Krysten Sexton, PT Physical Therapist Therapy Charges for Today Code Description Service Date Service Provider Modifiers Qty [id number] HC GAIT TRAINING EA 15 MIN 07/26/2025 Krysten Sexton, PT GP 1 PT G-Codes Outcome Measure Options: AM-PAC 6 Clicks Basic Mobility (PT) AM-PAC 6 Clicks Score (PT): 16 AM-PAC 6 Clicks Score (OT): 17 PT Discharge Summary Anticipated Discharge Disposition (PT): nursing home facility Krysten Sexton PT 07/26/2025 * Therapy Progress Report/Re-Cert - Summer Junior, OT - 07/26/2025 2:30 PM EDT Images from the original note were not included. Patient Name: Peter Parnell : 1960 Today's Date: 07/26/2025 Admit Date: 2025 Visit Dx: ICD-10-CM ICD-9-CM 1. Cauda equina syndrome G83.4 344.60 2. Metastatic malignant neoplasm, unspecified site C79.9 199.1 3. Adenocarcinoma of 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 C50.912 174.9 C78.7 197.7 4. Malignant neoplasm of upper-outer quadrant of left breast in female, estrogen receptor positive C50.412 174.4 Z17.0 V86.0 5. Carcinoma of breast metastatic to bone, unspecified laterality C50.919 174.9 C79.51 198.5 6. 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 of 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 Breast cancer metastasized to bone Encounter for care related to vascular access port Chemotherapy-induced neuropathy Brain metastases Spinal cord mass Falls Anemia, chronic disease Thrombocytopenia Stage 3b chronic kidney disease Moderate protein-calorie malnutrition Past Medical History: Diagnosis Date Back problem Bone cancer Mets Breast cancer Diabetes mellitus Drug therapy 12/2013 History of radiation therapy 01/19/2022 L3-L5, sacrum History of radiation therapy 09/26/2022 Whole brain radiotherapy Hx of radiation therapy 04/2014 Kidney stone Liver carcinoma Mets Malignant neoplasm of upper-outer quadrant of left breast in female, estrogen receptor positive 08/22/2016 Neuropathy Radiation Past Surgical History: Procedure Laterality Date BREAST BIOPSY Left BREAST LUMPECTOMY Left 11/2013 CATARACT EXTRACTION Right 02/11/2024 HEAD/NECK LESION/CYST EXCISION Right 12/02/2020 Procedure: WIDE EXCISION MALIGNANT LESION OF SCALP; Surgeon: Evens Wagner MD; Location: [facility]; Service: General; Laterality: Right; LIVER BIOPSY 09/22/2019 OOPHORECTOMY PORTACATH PLACEMENT Right 2019 SKIN FULL THICKNESS GRAFT Right 12/02/2020 Procedure: FULL THICKNESS SKIN GRAFT, RESECTION OF TUMOR OF RIGHT NECK; Surgeon: Evens Wagner MD; Location: [facility]; Service: General; Laterality: Right; General Information Row Name 07/26/25 1517 OT Time and Intention Document Type progress note/recertification -MR Mode of Treatment occupational therapy;co-treatment -MR Row Name 07/26/25 1517 General Information Patient Profile Reviewed yes -MR Existing Precautions/Restrictions other (see comments);fall Metastatic Breast Cancer with brain andspinal lesions, L foot drop, L knee buckling -MR Barriers to Rehab medically complex;previous functional deficit;physical barrier -MR Row Name 07/26/25 1517 Cognition Orientation Status (Cognition) oriented x 4 -MR Row Name 07/26/25 1517 Safety Issues/Impairments Affecting Functional Mobility Safety Issues Affecting Function (Mobility) awareness of need for assistance;insight into deficits/self-awareness;safety precaution awareness;safety precautions follow-through/compliance;sequencing ab ilities;judgment -MR Impairments Affecting Function (Mobility) balance;coordination;endurance/activity tolerance;grasp;motor control;pain;strength -MR User Kemp (r) = Recorded By, (t) = Taken By, (c) = Cosigned By Initials Name Provider Type Summer Hudson, OT Occupational Therapist Mobility/ADL's Row Name 07/26/25 1517 Bed Mobility Comment, (Bed Mobility) Pt received UIC and left UIC. -MR Row Name 07/26/25 1517 Transfers Transfers sit-stand transfer;toilet transfer -MR Row Name 07/26/25 151 Sit-Stand Transfer Sit-Stand Bollinger (Transfers) moderate assist (50% patient effort);1 person assist;verbal cues;nonverbal cues (demo/gesture) -MR Assistive Device (Sit-Stand Transfers) walker, front-wheeled -MR Comment, (Sit-Stand Transfer) Romel for chair, ModA from w/c. -MR Row Name 07/26/251516 Toilet Transfer Type (Toilet Transfer) stand pivot/stand step -MR Bollinger Level (Toilet Transfer) minimum assist (75% patient effort);1 person assist;verbal cues -MR Assistive Device (Toilet Transfer) commode, bedside without drop arms;walker, front-wheeled -MR Row Name 07/26/251516 Functional Mobility Functional Mobility- Ind. Level minimum assist (75% patient effort);1 person;verbal cues required -MR Functional Mobility- Device walker, front-wheeled -MR Functional Mobility-Distance (Feet) -- HH distances w/in pt's room -MR Row Name 07/26/25 151 Activities of Daily Living BADL Assessment/Intervention upper body dressing -MR Row Name 07/26/25 151 Upper Body Dressing Assessment/Training Bollinger Level (Upper Body Dressing) don;contact guard assist -MR Position (Upper Body Dressing) unsupported sitting -MR User Kemp (r) = Recorded By, (t) = Taken By, (c) = Cosigned By Initials Name Provider Type MR Summer Junior OT Occupational Therapist Obj/Interventions Row Name 07/26/25 1520 Balance Balance Assessment sitting static balance;sitting dynamic balance;standing static balance -MR Static Sitting Balance standby assist -MR Dynamic Sitting Balance standby assist -MR Position, Sitting Balance unsupported;sitting in chair;other (see comments) BSC -MR Static Standing Balance minimal assist -MR Dynamic Standing Balance minimal assist;1-person assist;1 person to manage equipment;verbal cues;non-verbal cues (demo/gesture) -MR Position/Device Used, Standing Balance supported;walker, front-wheeled -MR Balance Interventions sitting;standing;sit to stand;static;supported;dynamic -MR User Kemp (r) = Recorded By, (t) = Taken By, (c) = Cosigned By Initials Name Provider Type Summer Junior, OT Occupational Therapist Goals/Plan Row Name 07/26/25 153 Transfer Goal 1 (OT) Activity/Assistive Device (Transfer Goal 1, OT) [id number];toilet -MR Bollinger Level/Cues Needed (Transfer Goal 1, OT) verbal cues required;contact guard required -MR Time Frame (Transfer Goal 1, OT) retirement goal (LTG);1 week -MR Strategies/Barriers (Transfers Goal 1, OT) Progress to BR for transfers as able to support HH distances -MR Progress/Outcome (Transfer Goal 1, OT) goal ongoing -MR Row Name 07/26/25 153 Self-Feeding Goal 1 (OT) Activity/Device (Self-Feeding Goal 1, OT) built-up handle utensils -MR Bollinger Level/Cues Needed (Self-Feeding Goal 1, OT) modified independence -MR Time Frame (Self-Feeding Goal 1, OT) short term goal (STG);3 days -MR Progress/Outcomes (Self-Feeding Goal 1, OT) goal no longer appropriate -MR Row Name 07/26/251530 Strength Goal 1 (OT) Strength Goal 1 (OT) Pt demonstrates Bollinger with Foam Block HEP to support self-care. -MR Time Frame (Strength Goal 1, OT) intermodal dispatcher goal (LTG);1 week -MR Progress/Outcome (Strength Goal 1, OT) good progress toward goal;goal ongoing -MR User Kemp (r) = Recorded By, (t) = Taken By, (c) = Cosigned By Initials Name Provider Type MR Junior Summer, OT Occupational Therapist Clinical Impression Row Name 07/26/25 152 Pain Assessment Pretreatment Pain Rating 0/10 - no pain -MR Posttreatment Pain Rating 0/10 - no pain -MR Row Name 07/26/25 152 Plan of Care Review Plan of Care Reviewed With patient -MR Progress no change -MR Outcome Evaluation Patient continues to be below her functional baseline requiring assist w/ mobility and transfers. Simulated home set up with functional transfers fro family and patient this session. Continue to progress as able per current POC. -MR Row Name 07/26/25 152 Therapy Plan Review/Discharge Plan (OT) Anticipated Discharge Disposition (OT) nursing home facility -MR Row Name 07/26/25 152 Vital Signs Pre Systolic BP Rehab 114 -MR Pre Treatment Diastolic BP 53 -MR Post Systolic BP Rehab 126 -MR Post Treatment Diastolic BP 58 -MR Pre SpO2 (%) 100 -MR O2 Delivery Pre Treatment room air -MR O2 Delivery Intra Treatment room air -MR Post SpO2 (%) 100 -MR O2 Delivery Post Treatment room air -MR Pre Patient Position Sitting -MR Intra Patient Position Standing -MR Post Patient Position Sitting -MR Row Name 07/26/25 1521 Positioning and Restraints Pre-Treatment Position sitting in chair/recliner -MR Post Treatment Position chair -MR In Chair notified nsg;reclined;sitting;call light within reach;encouraged to call for assist;exit alarm on;waffle cushion;with family/caregiver;on mechanical lift sling -MR User Kemp (r) = Recorded By, (t) = Taken By, (c) = Cosigned By Initials Name Provider Type Summer Hudson, OT Occupational Therapist Outcome Measures Row Name 07/26/25 1529 How much help from another is currently needed... Putting on and taking off regular lower body clothing? 2 -MR Bathing (including washing, rinsing, and drying) 3 -MR Toileting (which includes using toilet bed todd or urinal) 3 -MR Putting on and taking off regular upper body clothing 3 -MR Taking care of personal grooming (such as brushing teeth) 3 -MR Eating meals 3 -MR AM-PAC 6 Clicks Score (OT) 17 -MR Row Name 07/26/25 1513 07/26/25 0842 How much help from another person do you currently need... Turning from your back to your side while in flat bed without using bedrails? 3 -AB 3 -MAURICIO Moving from lying on back to sitting on the side of a flat bed without bedrails? 3 -AB 3 -MAURICIO Moving to and from a bed to a chair (including a wheelchair)? 3 -AB 2 -MAURICIO Standing up from a chair using your arms (e.g., wheelchair, bedside chair)? 2 - AB 2 -MAURICIO Climbing 3-5 steps with a railing? 2 -AB 1 -MAURICIO To walk in hospital room? 3 -AB 2 -MAURICIO AM-PAC 6 Clicks Score (PT) 16 -AB 13 -MAURICIO Highest Level of Mobility Goal Stand (1 or More Minutes)-5 -AB Move to Chair/Commode-4 -MAURICIO Row Name 07/26/25 1529 07/26/251512 Functional Assessment Outcome Measure Options AM-PAC 6 Clicks Daily Activity (OT) -MR AM-PAC 6 Clicks Basic Mobility (PT)-AB User Kemp (r) = Recorded By, (t) = Taken By, (c) = Cosigned By Initials Name Provider Type MR Summer Junior, OT Occupational Therapist Krysten Pradhan, PT Physical Therapist Sorin Coates, RN Registered Nurse Occupational Therapy Education Title: PT OT COMMAND AND CONTROL OFFICER Therapies (In Progress) Topic: Occupational Therapy (Done) Point: ADL training (Done) Learning Progress Summary Patient Acceptance, E, VU by MR at 07/26/20251529 Acceptance, E,D, VU,DU,NR by at 07/23/202548 Point: Home exercise program (Done) Learning Progress Summary Patient Acceptance, E, VU by MR at 07/26/2025 153 Point: Precautions (Done) Learning Progress Summary Patient Acceptance, E, VU by MR at 07/26/20251529 Acceptance, E,D, VU,DU,NR by at 07/23/202548 Point: Body mechanics (Done) Learning Progress Summary Patient Acceptance, E, VU by MR at 07/26/20251529 Acceptance, E,D, VU,DU,NR by at 07/23/202548 User Kemp Initials Effective Dates Name Provider Type Discipline 04/09/23 - Lenka Payne OT Occupational Therapist OT 06/21/22 - Summer Junior, OT Occupational Therapist OT OT Recommendation and Plan Recommended discharge disposition is based on the functional assessment performed by PT/OT/Speech therapy (as applicable) and may not reflect the medical necessity determined by your provider or services covered by an individual patient's insurance plan or patient resource. Plan of Care Review Plan of Care Reviewed With: patient Progress: no change Outcome Evaluation: Patient continues to be below her functional baseline requiring assist w/ mobility and transfers. Simulated home set up with functional transfers fro family and patient this session. Continue to progress as able per current POC. Time Calculation: Time Calculation- OT Row Name 07/26/25152907/26/251513 Time Calculation- OT OT Start Time 1430 -MR -- OT Received On 07/26/25 -MR -- OT Goal Re-Cert Due Date 08/05/25 -MR -- Timed Charges 73831 - Gait Training Minutes -- 10 -AB 85916 - OT Therapeutic Activity Minutes 5 -MR -- 78135 - OT Self Care/Mgmt Minutes 10 -MR -- Total Minutes Timed Charges Total Minutes 15 -MR 10 -AB Total Minutes 15 -MR 10 -AB User Kemp (r) = Recorded By, (t) = Taken By, (c) = Cosigned By Initials Name Provider Type MR Vernon Summer, OT Occupational Therapist AB Krysten Sexton, MARLEN Physical Therapist Therapy Charges for Today Code Description Service Date Service Provider Modifiers Qty 87658469688 HC OT SELF CARE/MGMT/TRAIN EA 15 MIN 07/26/2025 Summer Junior OT GO 1 Summer Junior OT 07/26/2025 * Case Management/Social Work - Rehana Marshall RN - 07/26/2025 10:51 AM EDT Continued Stay Note [facility] Patient Name: Peter Parnell Today's Date: 07/26/2025 Admit Date: 2025 Plan: Home Discharge Plan Row Name 07/26/25 1050 Plan Plan Comments Plan remains to return home once medically ready. Pt is aware HH is not an option at this time due to none being in network with her insurance. She is declining SNF at this time. WC andRC have been brought to her room via [facility]. No other dc nees at this time Discharge Codes No documentation. Expected Discharge Date and Time Expected Discharge Date Expected Discharge Time Jul 27, 2025 Rehana Marshall, DERRICK * Therapy Treatment Note - Krysten Garvey PTA - 07/25/2025 8:40 AM EDT Images from the original note were not included. Patient Name: Peter Parnell : 1960 Today's Date: 07/25/2025 Admit Date: 2025 Visit Dx: ICD-10-CM ICD-9-CM 1. Cauda equina syndrome G83.4 344.60 2. Metastatic malignant neoplasm, unspecified site C79.9 199.1 3. Adenocarcinoma of 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 C50.912 174.9 C78.7 197.7 4. Malignant neoplasm of upper-outer quadrant of left breast in female, estrogen receptor positive C50.412 174.4 Z17.0 V86.0 5. Carcinoma of breast metastatic to bone, unspecified laterality C50.919 174.9 C79.51 198.5 6. 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 of 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 Breast cancer metastasized to bone Encounter for care related to vascular access port Chemotherapy-induced neuropathy Brain metastases Spinal cord mass Falls Anemia, chronic disease Thrombocytopenia Stage 3b chronic kidney disease Moderate protein-calorie malnutrition Past Medical History: Diagnosis Date Back problem Bone cancer Mets Breast cancer Diabetes mellitus Drug therapy 12/2013 History of radiation therapy 01/19/2022 L3-L5, sacrum History of radiation therapy 09/26/2022 Whole brain radiotherapy Hx of radiation therapy 04/2014 Kidney stone Liver carcinoma Mets Malignant neoplasm of upper-outer quadrant of left breast in female, estrogen receptor positive 08/22/2016 Neuropathy Radiation Past Surgical History: Procedure Laterality Date BREAST BIOPSY Left BREAST LUMPECTOMY Left 11/2013 CATARACT EXTRACTION Right 02/11/2024 HEAD/NECK LESION/CYST EXCISION Right 12/02/2020 Procedure: WIDE EXCISION MALIGNANT LESION OF SCALP; Surgeon: Evens Wagner MD; Location: [facility] OR; Service: General; Laterality: Right; LIVER BIOPSY 09/22/2019 OOPHORECTOMY PORTACATH PLACEMENT Right 2019 SKIN FULL THICKNESS GRAFT Right 12/02/2020 Procedure: FULL THICKNESS SKIN GRAFT, RESECTION OF TUMOR OF RIGHT NECK; Surgeon: Evens Wagner MD; Location: [facility]; Service: General; Laterality: Right; General Information Row Name 07/25/25913 Physical Therapy Time and Intention Document Type therapy note (daily note) - Mode of Treatment physical therapy - Row Name 07/25/25913 General Information Patient Profile Reviewed yes - Existing Precautions/Restrictions other (see comments) Metastatic Breast Cancer with brain and spinal lesions, L foot drop - Barriers to Rehab medically complex;previous functional deficit;physical barrier - Row Name 07/25/25913 Cognition Orientation Status (Cognition) oriented x 4 - Row Name 07/25/25913 Safety Issues/Impairments Affecting Functional Mobility Safety Issues Affecting Function (Mobility) awareness of need for assistance;safety precautions follow-through/compliance;insight into deficits/self-awareness;positioning of assistive device - Impairments Affecting Function (Mobility) balance;coordination;endurance/activity tolerance;grasp;motor control;pain;strength - Comment, Safety Issues/Impairments (Mobility) alert and following commands, L foot drop - User Kemp (r) = Recorded By, (t) = Taken By, (c) = Cosigned By Initials Name Provider Type Krysten Garvey PTA Physical Therapist Nurse Behavioral Health Care Mobility Row Name 07/25/25915 Bed Mobility Supine-Sit Bollinger (Bed Mobility) verbal cues;minimum assist (75% patient effort);1 person assist - Assistive Device (Bed Mobility) head of bed elevated;bed rails - Comment, (Bed Mobility) assist with L LE to EOB - Row Name 07/25/25915 Transfers Comment, (Transfers) cues for hand placement, increased time and effort to reach full upright posture - Row Name 07/25/25915 Bed-Chair Transfer Bed-Chair Bollinger (Transfers) verbal cues;minimum assist (75% patient effort);1 person assist - Assistive Device (Bed-Chair Transfers) walker, front-wheeled - Row Name 07/25/25915 Sit-Stand Transfer Sit-Stand Bollinger (Transfers) verbal cues;minimum assist (75% patient effort);1 person assist - Assistive Device (Sit-Stand Transfers) walker, front-wheeled - Row Name 07/25/25915 Gait/Stairs (Locomotion) Bollinger Level (Gait) verbal cues;minimum assist (75% patient effort);1 person assist - Assistive Device (Gait) walker, front-wheeled - Distance in Feet (Gait) 30 - Deviations/Abnormal Patterns (Gait) bilateral deviations;gait speed decreased;stride length decreased;ataxic;base of support, narrow - Bilateral Gait Deviations heel strike decreased - Left Sided Gait Deviations foot drop/toe drag - Comment, (Gait/Stairs) patient ambulated 30' with min assist x1 and rolling walker for support, didnot use K.I this date(no knee buckling noticed) L foot drop with decreased step length on the left,distance limited by weakness and fatigue. - User Kemp (r) = Recorded By, (t) = Taken By, (c) = Cosigned By Initials Name Provider Type Krysten Garvey PTA Physical Therapist Nurse Behavioral Health Care Obj/Interventions Row Name 07/25/25917 Knee (Therapeutic Exercise) Knee (Therapeutic Exercise) strengthening exercise - Knee Strengthening (Therapeutic Exercise) bilateral;heel slides;supine;10 repetitions - Row Name 07/25/25917 Ankle (Therapeutic Exercise) Ankle (Therapeutic Exercise) AROM (active range of motion) - Ankle AROM (Therapeutic Exercise) bilateral;dorsiflexion;plantarflexion;supine;10 repetitions AAROML - Row Name 07/25/25917 Balance Dynamic Standing Balance verbal cues;minimal assist;1-person assist - Position/Device Used, Standing Balance supported;walker, front-wheeled - Comment, Balance MIN ASSIST FOR SAFETY - User Kemp (r) = Recorded By, (t) = Taken By, (c) = Cosigned By Initials Name Provider Type Krysten Garvey PTA Physical Therapist Nurse Behavioral Health Care Goals/Plan No documentation. Clinical Impression Row Name 07/25/25917 Pain Pretreatment Pain Rating 0/10 - no pain - Posttreatment Pain Rating 0/10 - no pain - Row Name 07/25/25917 Plan of Care Review Plan of Care Reviewed With patient - Progress no change - Outcome Evaluation patient ambulated 30' with min assist x1 and rolling walker for support, did notuse K.I this date(no knee buckling noticed) L foot drop with decreased step length on the left, distance limited by weakness and fatigue. Patient would benefit from SNF but has decided to go home with 22/04 assist. - Row Name 07/25/25917 Positioning and Restraints Pre-Treatment Position in bed - Post Treatment Position chair - In Chair reclined;call light within reach;encouraged to call for assist;exit alarm on;waffle cushion;legs elevated;notified nsg - User Kemp (r) = Recorded By, (t) = Taken By, (c) = Cosigned By Initials Name Provider Type Krysten Garvey PTA Physical Therapist Nurse Behavioral Health Care Outcome Measures Row Name 07/25/2591807/24/252125 How much help from another person do you currently need... Turning from your back to your side while in flat bed without using bedrails? 3 - 3 -AM Moving from lying on back to sitting on the side of a flat bed without bedrails? 3 - 3 -AM Moving to and from a bed to a chair (including a wheelchair)? 3 - 2 -AM Standing up from a chair using your arms (e.g., wheelchair, bedside chair)? 3 - 2 -AM Climbing 3-5 steps with a railing? 2 - 2 -AM To walk in hospital room? 3 - 2 -AM AM-PAC 6 Clicks Score (PT) 17 - 14 -AM Highest Level of Mobility Goal Stand (1 or More Minutes)-5 - Move to Chair/Commode-4 -AM Row Name 07/25/25918 Functional Assessment Outcome Measure Options AM-PAC 6 Clicks Basic Mobility (PT) - User Kemp (r) = Recorded By, (t) = Taken By, (c) = Cosigned By Initials Name Provider Type Krysten Garvey PTA Physical Therapist Nurse Behavioral Health Care Mireya Johansen RN Registered Nurse Physical Therapy Education Title: PT OT COMMAND AND CONTROL OFFICER Therapies (In Progress) Topic: Physical Therapy (In Progress) Point: Mobility training (In Progress) Learning Progress Summary Patient Acceptance, E, NR by at 07/25/2025 0919 Acceptance, E, NR by at 07/24/2025 1008 Acceptance, E,D, VU,NR by AB at 07/23/2025 1533 Acceptance, E,D, VU,NR by AB at 07/22/2025 1540 Acceptance, E, NR by KE at 07/19/2025 1335 Acceptance, E,D, NR by CT at 07/18/2025 1027 Eager, E,D, NR by CT at 07/17/2025 0920 Acceptance, E,TB, VU by AM at 07/16/2025 2247 Acceptance, E, VU by KE at 07/16/2025 1426 Acceptance, E, VU by KE at 07/15/2025 1143 Point: Home exercise program (In Progress) Learning Progress Summary Patient Acceptance, E, NR by at 07/25/2025 0919 Acceptance, E, NR by at 07/24/2025 1008 Acceptance, E, NR by KE at 07/19/2025 1335 Acceptance, E,D, NR by CT at 07/18/2025 1027 Eager, E,D, NR by CT at 07/17/2025 0920 Acceptance, E,TB, VU by AM at 07/16/2025 2247 Point: Body mechanics (In Progress) Learning Progress Summary Patient Acceptance, E, NR by at 07/25/2025918 Acceptance, E, NR by at 07/24/2025 1008 Acceptance, E,D, VU,NR by AB at 07/23/2025 1533 Acceptance, E,D, VU,NR by AB at 07/22/2025 1540 Acceptance, E, NR by KE at 07/19/20251334 Acceptance, E,D, NR by CT at 07/18/2025 1027 Eager, E,D, NR by CT at 07/17/2025 0920 Acceptance, E,TB, VU by AM at 07/16/20252246 Acceptance, E, VU by KE at 07/16/2025 142 Acceptance, E, VU by KE at 07/15/2025 1143 Point: Precautions (In Progress) Learning Progress Summary Patient Acceptance, E, NR by at 07/25/2025 09 Acceptance, E, NR by at 07/24/2025 1008 Acceptance, E,D, VU,NR by AB at 07/23/2025 1533 Acceptance, E,D, VU,NR by AB at 07/22/2025 1540 Acceptance, E, NR by KE at 07/19/2025 1335 Acceptance, E,D, NR by CT at 07/18/2025 1027 Eager, E,D, NR by CT at 07/17/2025 0920 Acceptance, E,TB, VU by AM at 07/16/20252246 Acceptance, E, VU by KE at 07/16/2025 1426 Acceptance, E, VU by KE at 07/15/2025 1143 User Kemp Initials Effective Dates Name Provider Type Discipline 04/16/25 - Krysten Garvey PTA Physical Therapist Nurse Behavioral Health Care PT CT 04/05/23 - Walter Pepe, PT Physical Therapist PT AB 06/21/22 - Krysten Sexton, PT Physical Therapist PT AM 03/23/25 - Mireya Landers RN Registered Nurse Nurse KE 08/15/23 - Roxana Rahman, PT Physical Therapist PT PT Recommendation and Plan Recommended discharge disposition is based on the functional assessment performed by PT/OT/Speech therapy (as applicable) and may not reflect the medical necessity determined by your provider or services covered by an individual patient's insurance plan or patient resource. Progress: no change Outcome Evaluation: patient ambulated 30' with min assist x1 and rolling walker for support, did not use K.I this date(no knee buckling noticed) L foot drop with decreased step length on the left, distance limited by weakness and fatigue. Patient would benefit from SNF but has decided to go home with 22/04 assist. Time Calculation: PT Charges Row Name 07/25/25 09 Time Calculation Start Time 0840 - PT Received On 07/25/25 - PT Goal Re-Cert Due Date 07/26/25 - Timed Charges 94559 - PT Therapeutic Exercise Minutes 10 - 85961 - Gait Training Minutes 13 - Total Minutes Timed Charges Total Minutes 23 - Total Minutes 23 - User Kemp (r) = Recorded By, (t) = Taken By, (c) = Cosigned By Initials Name Provider Type Krysten Garvey PTA Physical Therapist Nurse Behavioral Health Care Therapy Charges for Today Code Description Service Date Service Provider Modifiers Qty 25927698802 HC GAIT TRAINING EA 15 MIN 07/24/2025 Krysten Garvey PTA GP 2 64912857755 HC PT THER PROC EA 15 MIN 07/25/2025 Krysten Garvey PTA GP 1 62375860479 HC GAIT TRAINING EA 15 MIN 07/25/2025 Krysten Garvey PTA GP 1 PT G-Codes Outcome Measure Options: AM-PAC 6 Clicks Basic Mobility (PT) AM-PAC 6 Clicks Score (PT): 17 AM-PAC 6 Clicks Score (OT): 17 Krysten Garvey PTA 07/25/2025 * Therapy Treatment Note - Krysten Garvey PTA - 07/24/2025 9:26 AM EDT Images from the original note were not included. Patient Name: Peter Parnell : 1960 Today's Date: 07/24/2025 Admit Date: 2025 Visit Dx: ICD-10-CM ICD-9-CM 1. Cauda equina syndrome G83.4 344.60 2. Metastatic malignant neoplasm, unspecified site C79.9 199.1 3. Adenocarcinoma of 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 C50.912 174.9 C78.7 197.7 4. Malignant neoplasm of upper-outer quadrant of left breast in female, estrogen receptor positive C50.412 174.4 Z17.0 V86.0 5. Carcinoma of breast metastatic to bone, unspecified laterality C50.919 174.9 C79.51 198.5 6. 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 of 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 Breast cancer metastasized to bone Encounter for care related to vascular access port Chemotherapy-induced neuropathy Brain metastases Spinal cord mass Falls Anemia, chronic disease Thrombocytopenia Stage 3b chronic kidney disease Moderate protein-calorie malnutrition Past Medical History: Diagnosis Date Back problem Bone cancer Mets Breast cancer Diabetes mellitus Drug therapy 12/2013 History of radiation therapy 01/19/2022 L3-L5, sacrum History of radiation therapy 09/26/2022 Whole brain radiotherapy Hx of radiation therapy 04/2014 Kidney stone Liver carcinoma Mets Malignant neoplasm of upper-outer quadrant of left breast in female, estrogen receptor positive 08/22/2016 Neuropathy Radiation Past Surgical History: Procedure Laterality Date BREAST BIOPSY Left BREAST LUMPECTOMY Left 11/2013 CATARACT EXTRACTION Right 02/11/2024 HEAD/NECK LESION/CYST EXCISION Right 12/02/2020 Procedure: WIDE EXCISION MALIGNANT LESION OF SCALP; Surgeon: Evens Wagner MD; Location: [facility] OR; Service: General; Laterality: Right; LIVER BIOPSY 09/22/2019 OOPHORECTOMY PORTACATH PLACEMENT Right 2019 SKIN FULL THICKNESS GRAFT Right 12/02/2020 Procedure: FULL THICKNESS SKIN GRAFT, RESECTION OF TUMOR OF RIGHT NECK; Surgeon: Evens Wagner MD; Location: [facility]; Service: General; Laterality: Right; General Information Row Name 07/24/25 1002 Physical Therapy Time and Intention Document Type therapy note (daily note) - Mode of Treatment physical therapy - Row Name 07/24/25 1002 General Information Patient Profile Reviewed yes - Existing Precautions/Restrictions fall;spinal;other (see comments) Metastatic Breast Cancer with brain and spinal lesions, L knee buckling , KI L LE - Barriers to Rehab medically complex;previous functional deficit;physical barrier - Row Name 07/24/251001 Cognition Orientation Status (Cognition) oriented x 4 - Row Name 07/24/25 1002 Safety Issues/Impairments Affecting Functional Mobility Safety Issues Affecting Function (Mobility) awareness of need for assistance;insight into deficits/self-awareness;sequencing abilities;positioning of assistive device - Impairments Affecting Function (Mobility) balance;coordination;endurance/activity tolerance;grasp;motor control;pain;strength - Comment, Safety Issues/Impairments (Mobility) L K.I. donned prior to mobility per patient request, L knee buckling at end of walk, high fall risk - User Kemp (r) = Recorded By, (t) = Taken By, (c) = Cosigned By Initials Name Provider Type Krysten Garvey PTA Physical Therapist Nurse Behavioral [facility] Care Mobility Row Name 07/24/25 100 Bed Mobility Comment, (Bed Mobility) [facility] pre/post tx - Row Name 07/24/25 100 Transfers Comment, (Transfers) cues for hand placement - Row Name 07/24/25 100 Sit-Stand Transfer Sit-Stand Bollinger (Transfers) verbal cues;minimum assist (75% patient effort);1 person assist - Assistive Device (Sit-Stand Transfers) walker, front-wheeled - Comment, (Sit-Stand Transfer) cues for sequencing and L LE placement d/t K.I - Row Name 07/24/25 100 Gait/Stairs (Locomotion) Bollinger Level (Gait) verbal cues;minimum assist (75% patient effort);1 person assist - Assistive Device (Gait) walker, front-wheeled - Distance in Feet (Gait) 30 - Deviations/Abnormal Patterns (Gait) bilateral deviations;gait speed decreased;stride length decreased;ataxic;base of support, narrow - Bilateral Gait Deviations heel strike decreased - Left Sided Gait Deviations foot drop/toe drag;knee buckling, left side - Comment, (Gait/Stairs) Patient ambulated 30' with min assist x1 and rolling walker for support, K.I. donned d/t h/x knee buckling, at end of ambulation did notice knee buckling, several short standing rest breaks d/t weakness and fatigue. - User Kemp (r) = Recorded By, (t) = Taken By, (c) = Cosigned By Initials Name Provider Type Krysten Garvey PTA Physical Therapist Nurse [facility] Obj/Interventions Row Name 07/24/25 1006 Balance Dynamic Standing Balance minimal assist;verbal cues;1-person assist - Position/Device Used, Standing Balance supported;walker, front-wheeled - Comment, Balance L knee buckling with fatigue - User Kemp (r) = Recorded By, (t) = Taken By, (c) = Cosigned By Initials Name Provider Type Krysten Garvey PTA Physical Therapist Nurse Behavioral [facility] Goals/Plan No documentation. Clinical Impression Row Name 07/24/25 1006 Pain Pretreatment Pain Rating 0/10 - no pain - Posttreatment Pain Rating 0/10 - no pain - Row Name 07/24/25 1006 Plan of Care Review Plan of Care Reviewed With patient - Progress no change - Outcome Evaluation Patient ambulated 30' with min assist x1 and rolling walker for support, K.I. donned d/t h/x knee buckling, at end of ambulation did notice knee buckling, several short standing rest breaks d/t weakness and fatigue. Patient would benefit from SNF at D/C but wants to go home and will have 22/04 care. - Row Name 07/24/25 1006 Positioning and Restraints Pre-Treatment Position sitting in chair/recliner - Post Treatment Position chair - In Chair reclined;call light within reach;encouraged to call for assist;exit alarm on;waffle cushion;legs elevated - User Kemp (r) = Recorded By, (t) = Taken By, (c) = Cosigned By Initials Name Provider Type Krysten Garvey PTA Physical Therapist Nurse Behavioral [facility] Outcome Measures Row Name 07/24/25 1008 How much help from another person do you currently need... Turning from your back to your side while in flat bed without using bedrails? 3 - Moving from lying on back to sitting on the side of a flat bed without bedrails? 3 - Moving to and from a bed to a chair (including a wheelchair)? 3 - Standing up from a chair using your arms (e.g., wheelchair, bedside chair)? 3 - Climbing 3-5 steps with a railing? 2 - To walk in hospital room? 3 - AM-PAC 6 Clicks Score (PT) 17 - Highest Level of Mobility Goal Stand (1 or More Minutes)-5 - Row Name 07/24/25 1008 Functional Assessment Outcome Measure Options AM-PAC 6 Clicks Basic Mobility (PT) - User Kemp (r) = Recorded By, (t) = Taken By, (c) = Cosigned By Initials Name Provider Type Krysten Garvey PTA Physical Therapist Nurse Behavioral [facility] Physical Therapy Education Title: PT OT COMMAND AND CONTROL OFFICER Therapies (In Progress) Topic: Physical Therapy (In Progress) Point: Mobility training (In Progress) Learning Progress Summary Patient Acceptance, E, NR by at 07/24/2025 1008 Acceptance, E,D, VU,NR by AB at 07/23/2025 1533 Acceptance, E,D, VU,NR by AB at 07/22/2025 1540 Acceptance, E, NR by KE at 07/19/2025 1335 Acceptance, E,D, NR by CT at 07/18/2025 1027 Eager, E,D, NR by CT at 07/17/2025 0920 Acceptance, E,TB, VU by AM at 07/16/2025 2247 Acceptance, E, VU by KE at 07/16/2025 1426 Acceptance, E, VU by KE at 07/15/2025 1143 Point: Home exercise program (In Progress) Learning Progress Summary Patient Acceptance, E, NR by at 07/24/2025 1008 Acceptance, E, NR by KE at 07/19/2025 1335 Acceptance, E,D, NR by CT at 07/18/2025 1027 Eager, E,D, NR by CT at 07/17/2025 0920 Acceptance, E,TB, VU by AM at 07/16/2025 2247 Point: Body mechanics (In Progress) Learning Progress Summary Patient Acceptance, E, NR by at 07/24/2025 1008 Acceptance, E,D, VU,NR by AB at 07/23/2025 1533 Acceptance, E,D, VU,NR by AB at 07/22/2025 1540 Acceptance, E, NR by KE at 07/19/2025 1335 Acceptance, E,D, NR by CT at 07/18/2025 1027 Eager, E,D, NR by CT at 07/17/2025 0920 Acceptance, E,TB, VU by AM at 07/16/2025 2247 Acceptance, E, VU by KE at 07/16/2025 1426 Acceptance, E, VU by KE at 07/15/2025 1143 Point: Precautions (In Progress) Learning Progress Summary Patient Acceptance, E, NR by at 07/24/2025 1008 Acceptance, E,D, VU,NR by AB at 07/23/2025 1533 Acceptance, E,D, VU,NR by AB at 07/22/2025 1540 Acceptance, E, NR by KE at 07/19/2025 1335 Acceptance, E,D, NR by CT at 07/18/2025 1027 Eager, E,D, NR by CT at 07/17/2025 0920 Acceptance, E,TB, VU by AM at 07/16/2025 2247 Acceptance, E, VU by KE at 07/16/2025 1426 Acceptance, E, VU by KE at 07/15/2025 1143 User Kemp Initials Effective Dates Name Provider Type Discipline 04/16/25 - Krysten Garvey, [employer] Physical Therapist Nurse Behavioral Health Care PT CT 04/05/23 - Walter Pepe, PT Physical Therapist PT AB 06/21/22 - Krysten Sexton, PT Physical Therapist PT AM 03/23/25 - Mireya Landers, RN Registered Nurse Nurse KE 08/15/23 - Roxana Rahman, PT Physical Therapist PT PT Recommendation and Plan Recommended discharge disposition is based on the functional assessment performed by PT/OT/Speech therapy (as applicable) and may not reflect the medical necessity determined by your provider or services covered by an individual patient's insurance plan or patient resource. Progress: no change Outcome Evaluation: Patient ambulated 30' with min assist x1 and rolling walker for support, K.I. donned d/t h/x knee buckling, at end of ambulation did notice knee buckling, several short standing rest breaks d/t weakness and fatigue. Patient would benefit from SNF at D/C but wants to go home and will have 22/04 care. Time Calculation: PT Charges Row Name 07/24/25 1009 Time Calculation Start Time 925 - PT Received On 07/24/25 - PT Goal Re-Cert Due Date 07/25/25 - Timed Charges 36654 - Gait Training Minutes 23 - Total Minutes Timed Charges Total Minutes 23 - Total Minutes 23 - User Kemp (r) = Recorded By, (t) = Taken By, (c) = Cosigned By Initials Name Provider Type Krysten Garvey PTA Physical Therapist Nurse Behavioral Health Care Therapy Charges for Today Code Description Service Date Service Provider Modifiers Qty 14782208463 HC GAIT TRAINING EA 15 MIN 07/24/2025 Krysten Garvey PTA GP 2 PT G-Codes Outcome Measure Options: AM-PAC 6 Clicks Basic Mobility (PT) AM-PAC 6 Clicks Score (PT): 17 AM-PAC 6 Clicks Score (OT): 17 Krysten Garvey PTA 07/24/2025 * Therapy Treatment Note - Krysten Sexton, PT - 07/23/2025 2:53 PM EDT Images from the original note were not included. Patient Name: Peter Parnell : 1960 Today's Date: 07/23/2025 Admit Date: 2025 Visit Dx: ICD-10-CM ICD-9-CM 1. Cauda equina syndrome G83.4 344.60 2. Metastatic malignant neoplasm, unspecified site C79.9 199.1 3. Adenocarcinoma of 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 C50.912 174.9 C78.7 197.7 4. Malignant neoplasm of upper-outer quadrant of left breast in female, estrogen receptor positive C50.412 174.4 Z17.0 V86.0 5. Carcinoma of breast metastatic to bone, unspecified laterality C50.919 174.9 C79.51 198.5 6. 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 of 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 Breast cancer metastasized to bone Encounter for care related to vascular access port Chemotherapy-induced neuropathy Brain metastases Spinal cord mass Falls Anemia, chronic disease Thrombocytopenia Stage 3b chronic kidney disease Moderate protein-calorie malnutrition Past Medical History: Diagnosis Date Back problem Bone cancer Mets Breast cancer Diabetes mellitus Drug therapy 12/2013 History of radiation therapy 01/19/2022 L3-L5, sacrum History of radiation therapy 09/26/2022 Whole brain radiotherapy Hx of radiation therapy 04/2014 Kidney stone Liver carcinoma Mets Malignant neoplasm of upper-outer quadrant of left breast in female, estrogen receptor positive 08/22/2016 Neuropathy Radiation Past Surgical History: Procedure Laterality Date BREAST BIOPSY Left BREAST LUMPECTOMY Left 11/2013 CATARACT EXTRACTION Right 02/11/2024 HEAD/NECK LESION/CYST EXCISION Right 12/02/2020 Procedure: WIDE EXCISION MALIGNANT LESION OF SCALP; Surgeon: Evens Wagner MD; Location: [facility]; Service: General; Laterality: Right; LIVER BIOPSY 09/22/2019 OOPHORECTOMY PORTACATH PLACEMENT Right 2019 SKIN FULL THICKNESS GRAFT Right 12/02/2020 Procedure: FULL THICKNESS SKIN GRAFT, RESECTION OF TUMOR OF RIGHT NECK; Surgeon: Evens Wagner MD; Location: [facility]; Service: General; Laterality: Right; General Information Row Name 07/23/25 1523 Physical Therapy Time and Intention Document Type therapy note (daily note) -AB Mode of Treatment physical therapy -AB Row Name 07/23/25 1523 General Information Patient Profile Reviewed yes -AB Existing Precautions/Restrictions fall;spinal;other (see comments) Metastatic Breast Cancer with brain and spinal lesions, L knee buckling -AB Barriers to Rehab medically complex;previous functional deficit;physical barrier -AB Row Name 07/23/25 1523 Cognition Orientation Status (Cognition) oriented x 4 -AB Row Name 07/23/25 1523 Safety Issues/Impairments Affecting Functional Mobility Safety Issues Affecting Function (Mobility) awareness of need for assistance;insight into deficits/self-awareness;safety precaution awareness;safety precautions follow-through/compliance -AB Impairments Affecting Function (Mobility) balance;coordination;endurance/activity tolerance;grasp;motor control;pain;strength -AB User Kemp (r) = Recorded By, (t) = Taken By, (c) = Cosigned By Initials Name Provider Type AB Krysten Sexton PT Physical Therapist Mobility Row Name 07/23/25 1523 Bed Mobility Comment, (Bed Mobility) received and left UIC -AB Row Name 07/23/25 1523 Transfers Comment, (Transfers) Cues for hand placement and sequencing. KI issued and donned for mobility. -AB Row Name 07/23/25 1523 Sit-Stand Transfer Sit-Stand Bollinger (Transfers) minimum assist (75% patient effort);1 person assist;verbal cues-AB Assistive Device (Sit-Stand Transfers) walker, front-wheeled -AB Row Name 07/23/25 1523 Gait/Stairs (Locomotion) Bollinger Level (Gait) 1 person assist;verbal cues;moderate assist (50% patient effort) -AB Assistive Device (Gait) walker, front-wheeled -AB Patient was able to Ambulate yes -AB Distance in Feet (Gait) 40 -AB Deviations/Abnormal Patterns (Gait) bilateral deviations;gait speed decreased;stride length decreased;ataxic;base of support, narrow -AB Bilateral Gait Deviations heel strike decreased -AB Left Sided Gait Deviations foot drop/toe drag;knee buckling, left side -AB Comment, (Gait/Stairs) Pt ambulated with step through gait pattern, narrow JODIE, and forward flexed posture. Pt initially requiring min A for improved stability. W/ fatigue pt required mod A to advance LLE. L knee buckling inside of KI noted. Further activity limited by weakness and fatigue. -AB User Kemp (r) = Recorded By, (t) = Taken By, (c) = Cosigned By Initials Name Provider Type Krysten Pradhan PT Physical Therapist Obj/Interventions Row Name 07/23/25 1523 Balance Balance Assessment sitting dynamic balance;sitting static balance;standing static balance;standing dynamic balance -AB Static Sitting Balance supervision -AB Dynamic Sitting Balance contact guard -AB Position, Sitting Balance unsupported;sitting in chair -AB Static Standing Balance minimal assist -AB Dynamic Standing Balance moderate assist -AB Position/Device Used, Standing Balance supported;walker, front-wheeled -AB Balance Interventions sitting;standing;sit to stand;supported;static;dynamic;occupation based/functional task -AB Comment, Balance L knee buckling with fatigue. -AB User Kemp (r) = Recorded By, (t) = Taken By, (c) = Cosigned By Initials Name Provider Type AB Krysten Sexton, PT Physical Therapist Goals/Plan No documentation. Clinical Impression Row Name 07/23/25 1531 Pain Pretreatment Pain Rating 0/10 - no pain -AB Posttreatment Pain Rating 0/10 - no pain -AB Row Name 07/23/25 1531 Plan of Care Review Plan of Care Reviewed With patient -AB Progress no change -AB Outcome Evaluation Pt continues to present below baseline with weakness, impaired balance, and decreased endurance. She ambulated 40' with min/mod A, RW, and KI donned. Further IPPT is warranted. At this time PT is updating d/c rec to SNF as pt is at high risk for falls. -AB Row Name 07/23/25 1531 Vital Signs O2 Delivery Pre Treatment room air -AB O2 Delivery Intra Treatment room air -AB O2 Delivery Post Treatment room air -AB Pre Patient Position Sitting -AB Intra Patient Position Standing -AB Post Patient Position Sitting -AB Row Name 07/23/25 1531 Positioning and Restraints Pre-Treatment Position sitting in chair/recliner -AB Post Treatment Position chair -AB In Chair notified nsg;reclined;sitting;call light within reach;encouraged to call for assist;exit alarm on;legs elevated;waffle cushion;with family/caregiver -AB User Kemp (r) = Recorded By, (t) = Taken By, (c) = Cosigned By Initials Name Provider Type AB Krysten Sexton, PT Physical Therapist Outcome Measures Row Name 07/23/25 1532 07/23/25 0841 How much help from another person do you currently need... Turning from your back to your side while in flat bed without using bedrails? 3 -AB 3 -GS Moving from lying on back to sitting on the side of a flat bed without bedrails? 3 -AB 2 -GS Moving to and from a bed to a chair (including a wheelchair)? 3 -AB 3 -GS Standing up from a chair using your arms (e.g., wheelchair, bedside chair)? 3 - AB 3 -GS Climbing 3-5 steps with a railing? 2 -AB 2 -GS To walk in hospital room? 2 -AB 3 -GS AM-PAC 6 Clicks Score (PT) 16 -AB 16 -GS Highest Level of Mobility Goal Stand (1 or More Minutes)-5 -AB Stand (1 or More Minutes)-5 -GS Row Name 07/23/25 1532 Functional Assessment Outcome Measure Options AM-PAC 6 Clicks Basic Mobility (PT) -AB User Kemp (r) = Recorded By, (t) = Taken By, (c) = Cosigned By Initials Name Provider Type GS Charlotte Catherine, RN Registered Nurse Krysten Pradhan, PT Physical Therapist Physical Therapy Education Title: PT OT COMMAND AND CONTROL OFFICER Therapies (In Progress) Topic: Physical Therapy (In Progress) Point: Mobility training (Done) Learning Progress Summary Patient Acceptance, E,D, VU,NR by AB at 07/23/2025 1533 Acceptance, E,D, VU,NR by AB at 07/22/2025 1540 Acceptance, E, NR by KE at 07/19/2025 1335 Acceptance, E,D, NR by CT at 07/18/2025 1027 Eager, E,D, NR by CT at 07/17/2025 0920 Acceptance, E,TB, VU by AM at 07/16/2025 2247 Acceptance, E, VU by KE at 07/16/2025 1426 Acceptance, E, VU by KE at 07/15/2025 1143 Point: Home exercise program (In Progress) Learning Progress Summary Patient Acceptance, E, NR by KE at 07/19/2025 1335 Acceptance, E,D, NR by CT at 07/18/2025 1027 Eager, E,D, NR by CT at 07/17/2025 0920 Acceptance, E,TB, VU by AM at 07/16/2025 2247 Point: Body mechanics (Done) Learning Progress Summary Patient Acceptance, E,D, VU,NR by AB at 07/23/2025 1533 Acceptance, E,D, VU,NR by AB at 07/22/2025 1540 Acceptance, E, NR by KE at 07/19/2025 1335 Acceptance, E,D, NR by CT at 07/18/2025 1027 Eager, E,D, NR by CT at 07/17/2025 0920 Acceptance, E,TB, VU by AM at 07/16/2025 2247 Acceptance, E, VU by KE at 07/16/2025 1426 Acceptance, E, VU by KE at 07/15/2025 1143 Point: Precautions (Done) Learning Progress Summary Patient Acceptance, E,D, VU,NR by AB at 07/23/2025 1533 Acceptance, E,D, VU,NR by AB at 07/22/2025 1540 Acceptance, E, NR by KE at 07/19/2025 1335 Acceptance, E,D, NR by CT at 07/18/2025 1027 Eager, E,D, NR by CT at 07/17/2025 0920 Acceptance, E,TB, VU by AM at 07/16/2025 2247 Acceptance, E, VU by KE at 07/16/2025 1426 Acceptance, E, VU by KE at 07/15/2025 1143 User Kemp Initials Effective Dates Name Provider Type Discipline CT 04/05/23 - Walter Pepe, PT Physical Therapist PT AB 06/21/22 - Krysten Sexton, PT Physical Therapist PT AM 03/23/25 - Mireya Landers RN Registered Nurse Nurse 08/15/23 - Roxana Rahman, PT Physical Therapist PT PT Recommendation and Plan Recommended discharge disposition is based on the functional assessment performed by PT/OT/Speech therapy (as applicable) and may not reflect the medical necessity determined by your provider or services covered by an individual patient's insurance plan or patient resource. Progress: no change Outcome Evaluation: Pt continues to present below baseline with weakness, impaired balance, and decreased endurance. She ambulated 40' with min/mod A, RW, and KI donned. Further IPPT is warranted. Atthis time PT is updating d/c rec to SNF as pt is at high risk for falls. Time Calculation: PT Charges Row Name 07/23/25 1533 Time Calculation Start Time 1453 -AB PT Received On 07/23/25 -AB Timed Charges 61291 - Gait Training Minutes 10 -AB 57709 - PT Therapeutic Activity Minutes 13 -AB Total Minutes Timed Charges Total Minutes 23 -AB Total Minutes 23 -AB User Kemp (r) = Recorded By, (t) = Taken By, (c) = Cosigned By Initials Name Provider Type AB Krysten Sexton, PT Physical Therapist Therapy Charges for Today Code Description Service Date Service Provider Modifiers Qty 57927108701 HC GAIT TRAINING EA 15 MIN 07/22/2025 Krysten Sexton, PT GP 1 68739606916 HC GAIT TRAINING EA 15 MIN 07/23/2025 Krysten Sexton, PT GP 1 57036635879 HC PT THERAPEUTIC ACT EA 15 MIN 07/23/2025 Krysten Sexton, PT GP 1 PT G-Codes Outcome Measure Options: AM-PAC 6 Clicks Basic Mobility (PT) AM-PAC 6 Clicks Score (PT): 16 AM-PAC 6 Clicks Score (OT): 17 PT Discharge Summary Anticipated Discharge Disposition (PT): nursing home facility Krysten Sexton PT 07/23/2025 * Case Management/Social Work - Katerina Menon RN - 07/23/2025 1:31 PM EDT Continued Stay Note [facility] Patient Name: Peter Parnell Today's Date: 07/23/2025 Admit Date: 2025 Plan: Home Discharge Plan Row Name 07/23/25 1330 Plan Plan Comments Here through the weekend at least per discussion w Rad/Onc given risk of spinal swelling w radiation. CM will continue to follow. Discharge Codes No documentation. Expected Discharge Date and Time Expected Discharge Date Expected Discharge Time Jul 26, 2025 Katerina Menon RN * Therapy Treatment Note - Lenka Payne OT - 07/23/2025 7:48 AM EDT Images from the original note were not included. Patient Name: Peter Parnell : 1960 Today's Date: 07/23/2025 Admit Date: 2025 Visit Dx: ICD-10-CM ICD-9-CM 1. Cauda equina syndrome G83.4 344.60 2. Metastatic malignant neoplasm, unspecified site C79.9 199.1 3. Adenocarcinoma of 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 C50.912 174.9 C78.7 197.7 4. Malignant neoplasm of upper-outer quadrant of left breast in female, estrogen receptor positive C50.412 174.4 Z17.0 V86.0 5. Carcinoma of breast metastatic to bone, unspecified laterality C50.919 174.9 C79.51 198.5 6. 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 of 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 Breast cancer metastasized to bone Encounter for care related to vascular access port Chemotherapy-induced neuropathy Brain metastases Spinal cord mass Falls Anemia, chronic disease Thrombocytopenia Stage 3b chronic kidney disease Moderate protein-calorie malnutrition Past Medical History: Diagnosis Date Back problem Bone cancer Mets Breast cancer Diabetes mellitus Drug therapy 12/2013 History of radiation therapy 01/19/2022 L3-L5, sacrum History of radiation therapy 09/26/2022 Whole brain radiotherapy Hx of radiation therapy 04/2014 Kidney stone Liver carcinoma Mets Malignant neoplasm of upper-outer quadrant of left breast in female, estrogen receptor positive 08/22/2016 Neuropathy Radiation Past Surgical History: Procedure Laterality Date BREAST BIOPSY Left BREAST LUMPECTOMY Left 11/2013 CATARACT EXTRACTION Right 02/11/2024 HEAD/NECK LESION/CYST EXCISION Right 12/02/2020 Procedure: WIDE EXCISION MALIGNANT LESION OF SCALP; Surgeon: Evens Wagner MD; Location: [facility]; Service: General; Laterality: Right; LIVER BIOPSY 09/22/2019 OOPHORECTOMY PORTACATH PLACEMENT Right 2019 SKIN FULL THICKNESS GRAFT Right 12/02/2020 Procedure: FULL THICKNESS SKIN GRAFT, RESECTION OF TUMOR OF RIGHT NECK; Surgeon: Evens Wagner MD; Location: [facility]; Service: General; Laterality: Right; General Information Row Name 07/23/25 0929 OT Time and Intention Subjective Information no complaints -TB Document Type therapy note (daily note) -TB Mode of Treatment occupational therapy;individual therapy -TB Patient Effort good -TB Symptoms Noted During/After Treatment none -TB Row Name 07/23/25 0929 General Information Patient Profile Reviewed yes -TB Existing Precautions/Restrictions fall;spinal Metastatic Breast Cancer with brain and spinal lesions -TB Barriers to Rehab medically complex;previous functional deficit;physical barrier -TB Row Name 07/23/25928 Cognition Orientation Status (Cognition) oriented x 4 -TB Row Name 07/23/25928 Safety Issues/Impairments Affecting Functional Mobility Safety Issues Affecting Function (Mobility) awareness of need for assistance;sequencing abilities;positioning of assistive device -TB Impairments Affecting Function (Mobility) balance;coordination;endurance/activity tolerance;grasp;motor control;pain;strength -TB User Kemp (r) = Recorded By, (t) = Taken By, (c) = Cosigned By Initials Name Provider Type TB Lenka Payne OT Occupational Therapist Mobility/ADL's Row Name 07/23/25929 Bed Mobility Bed Mobility rolling right;sidelying-sit;scooting/bridging -TB Rolling Right Bollinger (Bed Mobility) minimum assist (75% patient effort);1 person assist;verbal cues -TB Scooting/Bridging Bollinger (Bed Mobility) minimum assist (75% patient effort);1 person assist;verbal cues -TB Sidelying-Sit Bollinger (Bed Mobility) minimum assist (75% patient effort);1 person assist;verbal cues -TB Bed Mobility, Safety Issues impaired trunk control for bed mobility;decreased use of legs for bridging/pushing;decreased use of arms for pushing/pulling -TB Assistive Device (Bed Mobility) head of bed elevated;bed rails;repositioning sheet -TB Comment, (Bed Mobility) Pt initiates transition to EOB sitting, gives good effort -TB Row Name 07/23/25929 Transfers Transfers sit-stand transfer;stand-sit transfer;toilet transfer -TB Comment, (Transfers) Education and cues for hand, sequencing, and safety all mobility and transfers. -TB Row Name 07/23/25929 Sit-Stand Transfer Sit-Stand Bollinger (Transfers) minimum assist (75% patient effort);1 person assist;verbal cues -TB Assistive Device (Sit-Stand Transfers) walker, front-wheeled -TB Row Name 07/23/25929 Stand-Sit Transfer Stand-Sit Bollinger (Transfers) minimum assist (75% patient effort);1 person assist;verbal cues -TB Assistive Device (Stand-Sit Transfers) walker, front-wheeled -TB Row Name 07/23/25929 Toilet Transfer Type (Toilet Transfer) sit-stand;stand-sit -TB Bollinger Level (Toilet Transfer) minimum assist (75% patient effort);1 person assist;verbal cues -TB Assistive Device (Toilet Transfer) commode, bedside without drop arms;walker, front-wheeled -TB Row Name 07/23/25929 Functional Mobility Functional Mobility- Ind. Level minimum assist (75% patient effort);1 person;verbal cues required - Functional Mobility- Device walker, front-wheeled -TB Functional Mobility-Distance (Feet) 30 -TB Functional Mobility- Safety Issues sequencing ability decreased;step length decreased;balance decreased during turns -TB Functional Mobility- Comment Pt is up in room and bathroom with good effort. Slow pace, LLE ataxic,no LOB. Frequent cues for RW positioning/sequencing. -TB Patient was able to Ambulate yes - Row Name 07/23/25929 Activities of Daily Living BADL Assessment/Intervention bathing;upper body dressing;grooming;feeding;toileting - Row Name 07/23/25929 Upper Body Dressing Assessment/Training Bollinger Level (Upper Body Dressing) doff;don;pajama/robe;minimum assist (75% patient effort) - Position (Upper Body Dressing) unsupported sitting - Row Name 07/23/25929 Self-Feeding Assessment/Training Bollinger Level (Feeding) set up;prepare tray/open items;independent;scoop food and bring to mouth;liquids to mouth - Position (Feeding) sitting up in bed - Row Name 07/23/25929 Toileting Assessment/Training Bollinger Level (Toileting) toileting skills;contact guard assist -TB Position (Toileting) unsupported sitting -TB Row Name 07/23/25929 Grooming Assessment/Training Bollinger Level (Grooming) set up;wash face, hands;oral care regimen;hair care, combing/brushing- Position (Grooming) sink side;unsupported sitting -TB Row Name 07/23/25929 Bathing Assessment/Intervention Bollinger Level (Bathing) set up;standby assist;upper body;bathing skills - Position (Bathing) sink side;unsupported sitting -TB User Kemp (r) = Recorded By, (t) = Taken By, (c) = Cosigned By Initials Name Provider Type Lenka Rosales OT Occupational Therapist Obj/Interventions Row Name 07/23/25 09 Balance Balance Assessment sitting dynamic balance;sit to stand dynamic balance;standing dynamic balance -TB Dynamic Sitting Balance supervision -TB Position, Sitting Balance unsupported;sitting in chair;sitting edge of bed;other (see comments) BSCat sink side -TB Sit to Stand Dynamic Balance minimal assist;1-person assist;verbal cues -TB Dynamic Standing Balance minimal assist;1-person assist;verbal cues -TB Position/Device Used, Standing Balance supported;walker, front-wheeled -TB Balance Interventions sitting;standing;sit to stand;supported;dynamic;dynamic reaching;occupation based/functional task -TB Comment, Balance No knee buckling this morning, but pt endorses that L side fatigues as the day goes on. -TB User Kemp (r) = Recorded By, (t) = Taken By, (c) = Cosigned By Initials Name Provider Type Lenka Rosales OT Occupational Therapist Goals/Plan No documentation. Clinical Impression Row Name 07/23/25938 Pain Assessment Pretreatment Pain Rating 0/10 - no pain -TB Posttreatment Pain Rating 0/10 - no pain -TB Row Name 07/23/25938 Plan of Care Review Plan of Care Reviewed With patient -TB Progress improving -TB Outcome Evaluation Pt is A/Ox4 this morning and is eager to regain her occupational independence. Education reinforced for spinal precautions for comfort. Pt transitions to EOB sitting with Min A andincreased time. Able to ambulate 2x15' with RW support and seated rest break in between. Presents with LLE ataxia and requires cues/assist for RW positioning and safety. Pt completes UB bathing, dressing, and grooming seated at sink side with increased time and effort. OT will continue to follow IP. Recommend SNF for best outcome at d/c. -TB Row Name 07/23/25938 Therapy Plan Review/Discharge Plan (OT) Anticipated Discharge Disposition (OT) nursing home facility -TB Row Name 07/23/25938 Vital Signs Pre Systolic BP Rehab -- RN cleared OT -TB O2 Delivery Pre Treatment room air -TB Pre Patient Position Supine -TB Intra Patient Position Standing -TB Post Patient Position Supine -TB Row Name 07/23/25 0939 Positioning and Restraints Pre-Treatment Position in bed -TB Post Treatment Position bed -TB In Bed fowlers;call light within reach;encouraged to call for assist;exit alarm on;with nsg -TB User Kemp (r) = Recorded By, (t) = Taken By, (c) = Cosigned By Initials Name Provider Type Lenka Payne, ANILA Occupational Therapist Outcome Measures Row Name 07/23/25 0841 How much help from another person do you currently need... Turning from your back to your side while in flat bed without using bedrails? 3 -GS Moving from lying on back to sitting on the side of a flat bed without bedrails? 2 -GS Moving to and from a bed to a chair (including a wheelchair)? 3 -GS Standing up from a chair using your arms (e.g., wheelchair, bedside chair)? 3 -GS Climbing 3-5 steps with a railing? 2 -GS To walk in hospital room? 3 -GS AM-PAC 6 Clicks Score (PT) 16 -GS Highest Level of Mobility Goal Stand (1 or More Minutes)-5 -GS User Kemp (r) = Recorded By, (t) = Taken By, (c) = Cosigned By Initials Name Provider Type Charlotte Catherine, DERRICK Registered Nurse Occupational Therapy Education Title: PT OT COMMAND AND CONTROL OFFICER Therapies (In Progress) Topic: Occupational Therapy (Done) Point: ADL training (Done) Learning Progress Summary Patient Acceptance, E,D, VU,DU,NR by at 07/23/2025 0948 Acceptance, E, VU by BT at 07/20/2025 1018 Point: Home exercise program (Done) Learning Progress Summary Patient Acceptance, E, VU by BT at 07/20/2025 1018 Point: Precautions (Done) Learning Progress Summary Patient Acceptance, E,D, VU,DU,NR by TB at 07/23/2025 0948 Acceptance, E, VU by BT at 07/20/2025 1018 Point: Body mechanics (Done) Learning Progress Summary Patient Acceptance, E,D, VU,DU,NR by TB at 07/23/2025 0948 Acceptance, E, VU by BT at 07/20/2025 1018 User Kemp Initials Effective Dates Name Provider Type [facility] 04/09/23 - Lenka Payne OT Occupational Therapist OT BT 05/14/25 - Virginia Pepe OT Student OT Student OT OT Recommendation and Plan Recommended discharge disposition is based on the functional assessment performed by PT/OT/Speech therapy (as applicable) and may not reflect the medical necessity determined by your provider or services covered by an individual patient's insurance plan or patient resource. Therapy Frequency (OT): daily Plan of Care Review Plan of Care Reviewed With: patient Progress: improving Outcome Evaluation: Pt is A/Ox4 this morning and is eager to regain her occupational independence. Education reinforced for spinal precautions for comfort. Pt transitions to EOB sitting with Min A and increased time. Able to ambulate 2x15' with RW support and seated rest break in between. Presents with LLE ataxia and requires cues/assist for RW positioning and safety. Pt completes UB bathing, dressing, and grooming seated at sink side with increased time and effort. OT will continue to follow IP. Recommend SNF for best outcome at d/c. Time Calculation: Evaluation Complexity (OT) Review Occupational Profile/Medical/Therapy History Complexity: expanded/moderate complexity Assessment, Occupational Performance/Identification of Deficit Complexity: 3-5 performance deficits Clinical Decision Making Complexity (OT): detailed assessment/moderate complexity Overall Complexity of Evaluation (OT): moderate complexity Time Calculation- OT Row Name 07/23/25 0950 Time Calculation- OT OT Start Time 0748 -TB OT Received On 07/23/25 -TB OT Goal Re-Cert Due Date 07/25/25 -TB Timed Charges 27622 - OT Self Care/Mgmt Minutes 53 -TB Total Minutes Timed Charges Total Minutes 53 -TB Total Minutes 53 -TB User Kemp (r) = Recorded By, (t) = Taken By, (c) = Cosigned By Initials Name Provider Type TB Lenka Payne OT Occupational Therapist Therapy Charges for Today Code Description Service Date Service Provider Modifiers Qty [id number] HC OT SELF CARE/MGMT/TRAIN EA 15 MIN 07/23/2025 Lenka Payne OT GO 4 Lenka Payne OT 07/23/2025 * Therapy Treatment Note - Krysten Sexton, PT - 07/22/2025 2:48 PM EDT Images from the original note were not included. Patient Name: Peter Parnell : 1960 Today's Date: 07/22/2025 Admit Date: 2025 Visit Dx: ICD-10-CM ICD-9-CM 1. Cauda equina syndrome G83.4 344.60 2. Metastatic malignant neoplasm, unspecified site C79.9 199.1 3. Adenocarcinoma of 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 C50.912 174.9 C78.7 197.7 4. Malignant neoplasm of upper-outer quadrant of left breast in female, estrogen receptor positive C50.412 174.4 Z17.0 V86.0 5. Carcinoma of breast metastatic to bone, unspecified laterality C50.919 174.9 C79.51 198.5 6. 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 of 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 Breast cancer metastasized to bone Encounter for care related to vascular access port Chemotherapy-induced neuropathy Brain metastases Spinal cord mass Falls Anemia, chronic disease Thrombocytopenia Stage 3b chronic kidney disease Moderate protein-calorie malnutrition Past Medical History: Diagnosis Date Back problem Bone cancer Mets Breast cancer Diabetes mellitus Drug therapy 12/2013 History of radiation therapy 01/19/2022 L3-L5, sacrum History of radiation therapy 09/26/2022 Whole brain radiotherapy Hx of radiation therapy 04/2014 Kidney stone Liver carcinoma Mets Malignant neoplasm of upper-outer quadrant of left breast in female, estrogen receptor positive 08/22/2016 Neuropathy Radiation Past Surgical History: Procedure Laterality Date BREAST BIOPSY Left BREAST LUMPECTOMY Left 11/2013 CATARACT EXTRACTION Right 02/11/2024 HEAD/NECK LESION/CYST EXCISION Right 12/02/2020 Procedure: WIDE EXCISION MALIGNANT LESION OF SCALP; Surgeon: Evens Wagner MD; Location: [facility] OR; Service: General; Laterality: Right; LIVER BIOPSY 09/22/2019 OOPHORECTOMY PORTACATH PLACEMENT Right 2019 SKIN FULL THICKNESS GRAFT Right 12/02/2020 Procedure: FULL THICKNESS SKIN GRAFT, RESECTION OF TUMOR OF RIGHT NECK; Surgeon: Evens Wagner MD; Location: [facility]; Service: General; Laterality: Right; General Information Row Name 07/22/25 1528 Physical Therapy Time and Intention Document Type therapy note (daily note) -AB Mode of Treatment physical therapy -AB Row Name 07/22/25 1528 General Information Patient Profile Reviewed yes -AB Existing Precautions/Restrictions fall;spinal Metastatic Breast Cancer with brain and spinal lesions -AB Barriers to Rehab medically complex;previous functional deficit;physical barrier -AB Row Name 07/22/25 1528 Cognition Orientation Status (Cognition) oriented x 3 -AB Row Name 07/22/25 1528 Safety Issues/Impairments Affecting Functional Mobility Safety Issues Affecting Function (Mobility) awareness of need for assistance;insight into deficits/self-awareness;safety precaution awareness;safety precautions follow-through/compliance;sequencing abilities -AB Impairments Affecting Function (Mobility) balance;coordination;endurance/activity tolerance;grasp;pain;strength -AB User Kemp (r) = Recorded By, (t) = Taken By, (c) = Cosigned By Initials Name Provider Type AB Krysten Sexton PT Physical Therapist Mobility Row Name 07/22/25 153 Bed Mobility Comment, (Bed Mobility) [facility] pre/post treatment -AB Row Name 07/22/25 1531 Transfers Comment, (Transfers) Cues for hand placement and sequencing. -AB Row Name 07/22/25 153 Sit-Stand Transfer Sit-Stand Bollinger (Transfers) minimum assist (75% patient effort);1 person assist;verbal cues -AB Assistive Device (Sit-Stand Transfers) walker, front-wheeled -AB Row Name 07/22/25 153 Gait/Stairs (Locomotion) Bollinger Level (Gait) minimum assist (75% patient effort);1 person assist;verbal cues;1 person to manage equipment -AB Assistive Device (Gait) walker, front-wheeled -AB Patient was able to Ambulate yes -AB Distance in Feet (Gait) 60 -AB Deviations/Abnormal Patterns (Gait) bilateral deviations;gait speed decreased;stride length decreased;ataxic;base of support, narrow -AB Bilateral Gait Deviations heel strike decreased -AB Left Sided Gait Deviations foot drop/toe drag;knee buckling, left side -AB Comment, (Gait/Stairs) Pt ambulated with step through gait pattern at a slowed pace. Cues provided for widening JODIE and for walker positioning. L knee buckling noted with fatigue. W/c brought up for safe return to sitting. -AB User Kemp (r) = Recorded By, (t) = Taken By, (c) = Cosigned By Initials Name Provider Type AB Krysten Sexton PT Physical Therapist Obj/Interventions Row Name 07/22/25 1536 Balance Balance Assessment sitting static balance;sitting dynamic balance;standing static balance;standing dynamic balance -AB Static Sitting Balance standby assist -AB Dynamic Sitting Balance standby assist -AB Position, Sitting Balance unsupported;sitting in chair -AB Static Standing Balance contact guard -AB Dynamic Standing Balance minimal assist;1-person assist;1 person to manage equipment;verbal cues -AB Position/Device Used, Standing Balance supported;walker, front-wheeled -AB Balance Interventions sitting;standing;sit to stand;supported;static;dynamic;occupation based/functional task -AB Comment, Balance L knee buckling. -AB User Kemp (r) = Recorded By, (t) = Taken By, (c) = Cosigned By Initials Name Provider Type AB Krysten Sexton, PT Physical Therapist Goals/Plan No documentation. Clinical Impression Row Name 07/22/25 1536 Pain Pretreatment Pain Rating 0/10 - no pain -AB Posttreatment Pain Rating 0/10 - no pain -AB Row Name 07/22/25 1536 Plan of Care Review Plan of Care Reviewed With patient -AB Progress no change -AB Outcome Evaluation Pt continues to present below baseline with weakness, impaired balance, and decreased endurance. Pt ambulated 60' with min Ax1+1 and RW. L knee buckling demo'd with fatigue. Further IPPT is warranted. PT will progress as able per POC. -AB Row Name 07/22/25 1536 Vital Signs Pre Systolic BP Rehab 144 -AB Pre Treatment Diastolic BP 56 -AB O2 Delivery Pre Treatment room air -AB O2 Delivery Intra Treatment room air -AB O2 Delivery Post Treatment room air -AB Pre Patient Position Sitting -AB Intra Patient Position Standing -AB Post Patient Position Sitting -AB Row Name 07/22/25 1536 Positioning and Restraints Pre-Treatment Position sitting in chair/recliner -AB Post Treatment Position chair -AB In Chair notified nsg;reclined;sitting;call light within reach;encouraged to call for assist;exit alarm on;with family/caregiver;legs elevated;waffle cushion -AB User Kemp (r) = Recorded By, (t) = Taken By, (c) = Cosigned By Initials Name Provider Type Krysten Pradhan, PT Physical Therapist Outcome Measures Row Name 07/22/25 1540 07/22/25 0828 How much help from another person do you currently need... Turning from your back to your side while in flat bed without using bedrails? 3 -AB 3 -BK Moving from lying on back to sitting on the side of a flat bed without bedrails? 2 -AB 3 -BK Moving to and from a bed to a chair (including a wheelchair)? 3 -AB 3 -BK Standing up from a chair using your arms (e.g., wheelchair, bedside chair)? 3 - AB 2 -BK Climbing 3-5 steps with a railing? 2 -AB 2 -BK To walk in hospital room? 3 -AB 2 -BK AM-PAC 6 Clicks Score (PT) 16 -AB 15 -BK Highest Level of Mobility Goal Stand (1 or More Minutes)-5 -AB Move to Chair/Commode-4 -BK Row Name 07/22/25 1540 Functional Assessment Outcome Measure Options AM-PAC 6 Clicks Basic Mobility (PT) -AB User Kemp (r) = Recorded By, (t) = Taken By, (c) = Cosigned By Initials Name Provider Type Krysten Pradhan, PT Physical Therapist Soraya Hernandez, RN Registered Nurse Physical Therapy Education Title: PT OT COMMAND AND CONTROL OFFICER Therapies (In Progress) Topic: Physical Therapy (In Progress) Point: Mobility training (Done) Learning Progress Summary Patient Acceptance, E,D, VU,NR by AB at 07/22/2025 1540 Acceptance, E, NR by KE at 07/19/2025 1335 Acceptance, E,D, NR by CT at 07/18/2025 1027 Eager, E,D, NR by CT at 07/17/2025 0920 Acceptance, E,TB, VU by AM at 07/16/2025 2247 Acceptance, E, VU by KE at 07/16/2025 1426 Acceptance, E, VU by KE at 07/15/2025 1143 Point: Home exercise program (In Progress) Learning Progress Summary Patient Acceptance, E, NR by KE at 07/19/2025 1335 Acceptance, E,D, NR by CT at 07/18/2025 1027 Eager, E,D, NR by CT at 07/17/2025 0920 Acceptance, E,TB, VU by AM at 07/16/2025 2247 Point: Body mechanics (Done) Learning Progress Summary Patient Acceptance, E,D, VU,NR by AB at 07/22/2025 1540 Acceptance, E, NR by KE at 07/19/2025 1335 Acceptance, E,D, NR by CT at 07/18/2025 1027 Eager, E,D, NR by CT at 07/17/2025 0920 Acceptance, E,TB, VU by AM at 07/16/2025 2247 Acceptance, E, VU by KE at 07/16/2025 1426 Acceptance, E, VU by KE at 07/15/2025 1143 Point: Precautions (Done) Learning Progress Summary Patient Acceptance, E,D, VU,NR by AB at 07/22/2025 1540 Acceptance, E, NR by KE at 07/19/2025 1335 Acceptance, E,D, NR by CT at 07/18/2025 1027 Eager, E,D, NR by CT at 07/17/2025 0920 Acceptance, E,TB, VU by AM at 07/16/2025 2247 Acceptance, E, VU by KE at 07/16/2025 1426 Acceptance, E, VU by KE at 07/15/2025 1143 User Kemp Initials Effective Dates Name Provider Type Discipline CT 04/05/23 - Walter Pepe, PT Physical Therapist PT AB 06/21/22 - Krysten Sexton, PT Physical Therapist PT AM 03/23/25 - Mireya Landers, RN Registered Nurse Nurse 08/15/23 - Roxana Rahman, PT Physical Therapist PT PT Recommendation and Plan Recommended discharge disposition is based on the functional assessment performed by PT/OT/Speech therapy (as applicable) and may not reflect the medical necessity determined by your provider or services covered by an individual patient's insurance plan or patient resource. Progress: no change Outcome Evaluation: Pt continues to present below baseline with weakness, impaired balance, and decreased endurance. Pt ambulated 60' with min Ax1+1 and RW. L knee buckling demo'd with fatigue. Further IPPT is warranted. PT will progress as able per POC. Time Calculation: PT Charges Row Name 07/22/25 1540 Time Calculation Start Time 1448 -AB PT Received On 07/22/25 -AB Timed Charges 66298 - Gait Training Minutes 10 -AB 75454 - PT Therapeutic Activity Minutes 6 -AB Total Minutes Timed Charges Total Minutes 16 -AB Total Minutes 16 -AB User Kemp (r) = Recorded By, (t) = Taken By, (c) = Cosigned By Initials Name Provider Type AB Krysten Sexton, PT Physical Therapist Therapy Charges for Today Code Description Service Date Service Provider Modifiers Qty [id number] HC GAIT TRAINING EA 15 MIN 07/22/2025 Krysten Sexton, PT GP 1 PT G-Codes Outcome Measure Options: AM-PAC 6 Clicks Basic Mobility (PT) AM-PAC 6 Clicks Score (PT): 16 AM-PAC 6 Clicks Score (OT): 17 PT Discharge Summary Anticipated Discharge Disposition (PT): home with /7 care, home with home health Krysten Sexton PT 07/22/2025 * Therapy Treatment Note - Virginia Pepe, OT Student - 07/20/2025 9:49 AM EDT Images from the original note were not included. Patient Name: Peter Parnell : 1960 Today's Date: 07/20/2025 Admit Date: 2025 Visit Dx: ICD-10-CM ICD-9-CM 1. Cauda equina syndrome G83.4 344.60 2. Metastatic malignant neoplasm, unspecified site C79.9 199.1 3. Adenocarcinoma of 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 C50.912 174.9 C78.7 197.7 4. Malignant neoplasm of upper-outer quadrant of left breast in female, estrogen receptor positive C50.412 174.4 Z17.0 V86.0 5. Carcinoma of breast metastatic to bone, unspecified laterality C50.919 174.9 C79.51 198.5 6. 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 of 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 Breast cancer metastasized to bone Encounter for care related to vascular access port Chemotherapy-induced neuropathy Brain metastases Spinal cord mass Falls Anemia, chronic disease Thrombocytopenia Stage 3b chronic kidney disease Moderate protein-calorie malnutrition Past Medical History: Diagnosis Date Back problem Bone cancer Mets Breast cancer Diabetes mellitus Drug therapy 12/2013 History of radiation therapy 01/19/2022 L3-L5, sacrum History of radiation therapy 09/26/2022 Whole brain radiotherapy Hx of radiation therapy 04/2014 Kidney stone Liver carcinoma Mets Malignant neoplasm of upper-outer quadrant of left breast in female, estrogen receptor positive 08/22/2016 Neuropathy Radiation Past Surgical History: Procedure Laterality Date BREAST BIOPSY Left BREAST LUMPECTOMY Left 11/2013 CATARACT EXTRACTION Right 02/11/2024 HEAD/NECK LESION/CYST EXCISION Right 12/02/2020 Procedure: WIDE EXCISION MALIGNANT LESION OF SCALP; Surgeon: Evens Wagner MD; Location: [facility]; Service: General; Laterality: Right; LIVER BIOPSY 09/22/2019 OOPHORECTOMY PORTACATH PLACEMENT Right 2019 SKIN FULL THICKNESS GRAFT Right 12/02/2020 Procedure: FULL THICKNESS SKIN GRAFT, RESECTION OF TUMOR OF RIGHT NECK; Surgeon: Evens Wagner MD; Location: [facility]; Service: General; Laterality: Right; General Information Row Name 07/20/25 1005 OT Time and Intention Subjective Information complains of;pain (P) -BT Document Type therapy note (daily note) (P) -BT Mode of Treatment occupational therapy;individual therapy (P) -BT Row Name 07/20/25 100 General Information Existing Precautions/Restrictions fall;spinal (P) Metastatic Breast Cancer with brain and spinal lesions -BT Barriers to Rehab medically complex;previous functional deficit;physical barrier (P) -BT Row Name 07/20/25 100 Cognition Orientation Status (Cognition) oriented x 3 (P) -BT Row Name 07/20/25 100 Safety Issues/Impairments Affecting Functional Mobility Safety Issues Affecting Function (Mobility) awareness of need for assistance;safety precaution awareness;safety precautions follow- through/compliance;insight into deficits/self-awareness;sequencing abilities (P) -BT Impairments Affecting Function (Mobility) balance;coordination;endurance/activity tolerance;grasp;pain;strength (P) -BT User Kemp (r) = Recorded By, (t) = Taken By, (c) = Cosigned By Initials Name Provider Type BT Virginia Pepe, OT Student OT Student Mobility/ADL's Row Name 07/20/25 1007 Bed Mobility Bed Mobility scooting/bridging (P) -BT Scooting/Bridging Bollinger (Bed Mobility) minimum assist (75% patient effort);verbal cues (P) -BT Assistive Device (Bed Mobility) bed rails;head of bed elevated (P) -BT Row Name 07/20/251006 Transfers Comment, (Transfers) Pt declined EOB/OOB d/t c/o of fatigue and pain, as well as received enema prior to session. (P) -BT Row Name 07/20/251006 Activities of Daily Living BADL Assessment/Intervention grooming (P) -BT Row Name 07/20/251006 Grooming Assessment/Training Bollinger Level (Grooming) wash face, hands;supervision (P) applied lotion -BT Position (Grooming) supine (P) -BT User Kemp (r) = Recorded By, (t) = Taken By, (c) = Cosigned By Initials Name Provider Type BT Virginia Pepe, OT Student OT Student Obj/Interventions Row Name 07/20/25 100 Elbow/Forearm (Therapeutic Exercise) Elbow/Forearm (Therapeutic Exercise) AROM (active range of motion);AAROM (active assistive range ofmotion) (P) -BT Elbow/Forearm AROM (Therapeutic Exercise) right;flexion;extension;pronation;supine;10 repetitions (P) -BT Elbow/Forearm AAROM (Therapeutic Exercise) left;flexion;extension;supination;pronation;supine;10 repetitions (P) -BT Row Name 07/20/25 1009 Wrist (Therapeutic Exercise) Wrist (Therapeutic Exercise) AROM (active range of motion) (P) -BT Wrist AROM (Therapeutic Exercise) bilateral;flexion;extension;10 repetitions (P) -BT Row Name 07/20/25 100 Hand (Therapeutic Exercise) Hand (Therapeutic Exercise) AROM (active range of motion) (P) -BT Hand AROM/AAROM (Therapeutic Exercise) bilateral;finger flexion;finger extension;10 repetitions (P)-BT Hand Strengthening (Therapeutic Exercise) bilateral;coal wheeler strengthening;thumb pinch strengthening;squeeze ball/egg;10 repetitions (P) Red for L hand, Blue for R hand -BT Row Name 07/20/25 1009 Motor Skills Therapeutic Exercise wrist;hand;elbow/forearm (P) -BT Row Name 07/20/25 1009 Balance Balance Assessment other (see comments) (P) Pt remained supine in bed for session -BT User Kemp (r) = Recorded By, (t) = Taken By, (c) = Cosigned By Initials Name Provider Type BT Virginia Pepe, OT Student OT Student Goals/Plan No documentation. Clinical Impression Row Name 07/20/25 1012 Pain Assessment Pretreatment Pain Rating 5/10 (P) -BT Posttreatment Pain Rating 5/10 (P) -BT Pain Location back;shoulder (P) -BT Pain Side/Orientation generalized (P) -BT Pain Management Interventions positioning techniques utilized (P) -BT Response to Pain Interventions activity participation with tolerable pain (P) -BT Row Name 07/20/25 1012 Plan of Care Review Plan of Care Reviewed With patient (P) -BT Progress no change (P) -BT Outcome Evaluation Pt continues to present below baseline with deficits of generalized weakness, impaired balance and decreased functional endurance. Pt completed HEP with A from OT. Pt will continueto benefit from IP OT to address deficits listed. OT discussed potentially returning home and safety with pt, as of now pt will not be able to have consistent 24/7 A. Pt acknowledges potential difficulty at home and level of A needed, is working on finding 24/7 A. D/t the level of A with transfers that pt needs, OT is changing rec to Rec SNF upon d/c. (P) -BT Row Name 07/20/25 1012 Therapy Plan Review/Discharge Plan (OT) Anticipated Discharge Disposition (OT) nursing home facility (P) -BT Row Name 07/20/25 1012 Vital Signs Pre Patient Position Supine (P) -BT Intra Patient Position Supine (P) -BT Post Patient Position Supine (P) -BT Row Name 07/20/25 1012 Positioning and Restraints Pre-Treatment Position in bed (P) -BT Post Treatment Position bed (P) -BT In Bed supine;call light within reach;encouraged to call for assist;exit alarm on;side rails up x2 (P) -BT User Kemp (r) = Recorded By, (t) = Taken By, (c) = Cosigned By Initials Name Provider Type BT Virginia Pepe, OT Student OT Student Outcome Measures Row Name 07/20/25 1018 How much help from another is currently needed... Putting on and taking off regular lower body clothing? 2 (P) -BT Bathing (including washing, rinsing, and drying) 3 (P) -BT Toileting (which includes using toilet bed todd or urinal) 3 (P) -BT Putting on and taking off regular upper body clothing 3 (P) -BT Taking care of personal grooming (such as brushing teeth) 3 (P) -BT Eating meals 3 (P) -BT AM-PAC 6 Clicks Score (OT) 17 (P) -BT Row Name 07/20/25 1018 Functional Assessment Outcome Measure Options AM-PAC 6 Clicks Daily Activity (OT) (P) -BT User Kemp (r) = Recorded By, (t) = Taken By, (c) = Cosigned By Initials Name Provider Type BT Virginia Pepe, OT Student OT Student Occupational Therapy Education Title: PT OT COMMAND AND CONTROL OFFICER Therapies (In Progress) Topic: Occupational Therapy (Done) Point: ADL training (Done) Learning Progress Summary Patient Acceptance, E, VU by BT at 07/20/2025 1018 Acceptance, E, VU by BT at 07/19/2025 1345 Point: Home exercise program (Done) Learning Progress Summary Patient Acceptance, E, VU by BT at 07/20/2025 1018 Acceptance, E, VU by BT at 07/19/2025 1345 Point: Precautions (Done) Learning Progress Summary Patient Acceptance, E, VU by BT at 07/20/2025 1018 Acceptance, E, VU by BT at 07/19/2025 1345 Point: Body mechanics (Done) Learning Progress Summary Patient Acceptance, E, VU by BT at 07/20/2025 1018 Acceptance, E, VU by BT at 07/19/2025 1345 User Kemp Initials Effective Dates Name Provider Type [facility] 05/14/25 - Virginia Pepe, OT Student OT Student OT OT Recommendation and Plan Recommended discharge disposition is based on the functional assessment performed by PT/OT/Speech therapy (as applicable) and may not reflect the medical necessity determined by your provider or services covered by an individual patient's insurance plan or patient resource. Plan of Care Review Plan of Care Reviewed With: (P) patient Progress: (P) no change Outcome Evaluation: (P) Pt continues to present below baseline with deficits of generalized weakness, impaired balance and decreased functional endurance. Pt completed HEP with A from OT. Pt will continue to benefit from IP OT to address deficits listed. OT discussed potentially returning home and safety with pt, as of now pt will not be able to have consistent 24/7 A. Pt acknowledges potential difficulty at home and level of A needed, is working on finding 24/7 A. D/t the level of A with transfers that pt needs, OT is changing rec to Rec SNF upon d/c. Time Calculation: Time Calculation- OT Row Name 07/20/25 1121 Time Calculation- OT OT Start Time 0949 (P) -BT OT Received On 07/20/25 (P) -BT OT Goal Re-Cert Due Date 07/25/26 (P) -BT Timed Charges 35493 - OT Therapeutic Exercise Minutes 9 (P) -BT 38553 - OT Self Care/Mgmt Minutes 7 (P) -BT Total Minutes Timed Charges Total Minutes 16 (P) -BT Total Minutes 16 (P) -BT User Kemp (r) = Recorded By, (t) = Taken By, (c) = Cosigned By Initials Name Provider Type BT Virginia Pepe, OT Student OT Student Therapy Charges for Today Code Description Service Date Service Provider Modifiers Qty 90314582484 HC OT THER PROC EA 15 MIN 07/19/2025 Virginia Pepe OT Student GO 1 77617741950 HC OT THER PROC EA 15 MIN 07/20/2025 Virginia Pepe OT Student GO 1 ANILA Fernandez 07/20/2025 Cosigned by Louise Zhou OT at 07/20/2025 3:26 PM EDT Associated attestation - Louise Zhou OT - 07/20/2025 3:26 PM EDT Louise Zhou OTR/L * Case Management/Social Work - Rehana Marshall RN - 07/20/2025 9:43 AM EDT Continued Stay Note [facility] Patient Name: Peter Parnell Today's Date: 07/20/2025 Admit Date: 2025 Plan: Home Discharge Plan Row Name 07/20/25 0942 Plan Plan Comments Cm has reached out to every HH in pts area and none are in network with her insurance. DC plan at this time is to return home Discharge Codes No documentation. Expected Discharge Date and Time Expected Discharge Date Expected Discharge Time Jul 20, 2025 Rehana Marshall RN * Case Management/Social Work - Lamar White RN - 07/19/2025 3:25 PM EDT Continued Stay Note [facility] Patient Name: Peter Parnell Today's Date: 07/19/2025 Admit Date: 2025 Plan: Home Discharge Plan Row Name 07/19/25 1520 Plan Plan Home Patient/Family in Agreement with Plan yes Plan Comments Wheelchair and walker delivered to patient by Corey at [facility]. CM unable to obtain home health; so far, all home health agencies that cover [facility] are out of network with insurance. LVM with Barbara at [facility] to return call. Case Management following. Final Discharge Disposition Code 01 - home or self-care Discharge Codes No documentation. Lamar White RN * Therapy Treatment Note - Virginia Pepe, OT Student - 07/19/2025 1:13 PM EDT Images from the original note were not included. Patient Name: Peter Parnell : 1960 Today's Date: 07/19/2025 Admit Date: 2025 Visit Dx: ICD-10-CM ICD-9-CM 1. Cauda equina syndrome G83.4 344.60 2. Metastatic malignant neoplasm, unspecified site C79.9 199.1 3. Adenocarcinoma of 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 C50.912 174.9 C78.7 197.7 4. Malignant neoplasm of upper-outer quadrant of left breast in female, estrogen receptor positive C50.412 174.4 Z17.0 V86.0 5. Carcinoma of breast metastatic to bone, unspecified laterality C50.919 174.9 C79.51 198.5 6. Falls R29.6 V15.88 Problem List[1] Past Medical History: Diagnosis Date Back problem Bone cancer Mets Breast cancer Diabetes mellitus Drug therapy 12/2013 History of radiation therapy 01/19/2022 L3-L5, sacrum History of radiation therapy 09/26/2022 Whole brain radiotherapy Hx of radiation therapy 04/2014 Kidney stone Liver carcinoma Mets Malignant neoplasm of upper-outer quadrant of left breast in female, estrogen receptor positive 08/22/2016 Neuropathy Radiation Past Surgical History: Procedure Laterality Date BREAST BIOPSY Left BREAST LUMPECTOMY Left 11/2013 CATARACT EXTRACTION Right 02/11/2024 HEAD/NECK LESION/CYST EXCISION Right 12/02/2020 Procedure: WIDE EXCISION MALIGNANT LESION OF SCALP; Surgeon: Evens Wagner MD; Location: [facility]; Service: General; Laterality: Right; LIVER BIOPSY 09/22/2019 OOPHORECTOMY PORTACATH PLACEMENT Right 2019 SKIN FULL THICKNESS GRAFT Right 12/02/2020 Procedure: FULL THICKNESS SKIN GRAFT, RESECTION OF TUMOR OF RIGHT NECK; Surgeon: Evens Wagner MD; Location: [facility] OR; Service: General; Laterality: Right; General Information Row Name 07/19/25 133 OT Time and Intention Subjective Information no complaints (P) -BT Document Type therapy note (daily note) (P) -BT Mode of Treatment occupational therapy;individual therapy (P) -BT Row Name 07/19/25 133 General Information Existing Precautions/Restrictions fall;spinal;other (see comments) (P) Metastatic Breast Cancer with brain and spinal lesions -BT Barriers to Rehab medically complex;previous functional deficit;physical barrier (P) -BT Row Name 07/19/25 439 Cognition Orientation Status (Cognition) oriented x 3 (P) -BT Row Name 07/19/251330 Safety Issues/Impairments Affecting Functional Mobility Safety Issues Affecting Function (Mobility) awareness of need for assistance;insight into deficits/self-awareness;safety precaution awareness;safety precautions follow-through/compliance;sequencing ab ilities;positioning of assistive device (P) -BT Impairments Affecting Function (Mobility) balance;endurance/activity tolerance;grasp;pain;strength;coordination (P) -BT User Kemp (r) = Recorded By, (t) = Taken By, (c) = Cosigned By Initials Name Provider Type BT Virginia Pepe, OT Student OT Student Mobility/ADL's Row Name 07/19/25 133 Transfers Transfers sit-stand transfer;stand-sit transfer;toilet transfer (P) -BT Row Name 07/19/25 133 Sit-Stand Transfer Sit-Stand Bollinger (Transfers) minimum assist (75% patient effort);1 person assist (P) -BT Assistive Device (Sit-Stand Transfers) walker, front-wheeled (P) -BT Comment, (Sit-Stand Transfer) v/c for hand placement and forward flexed posture (P) -BT Row Name 07/19/251331 Stand-Sit Transfer Stand-Sit Bollinger (Transfers) minimum assist (75% patient effort);1 person assist (P) -BT Assistive Device (Stand-Sit Transfers) walker, front-wheeled (P) -BT Comment, (Stand-Sit Transfer) v/c for hand placement (P) -BT Row Name 07/19/25 133 Toilet Transfer Type (Toilet Transfer) sit-stand;stand-sit (P) -BT Bollinger Level (Toilet Transfer) minimum assist (75% patient effort);1 person assist (P) -BT Row Name 07/19/251331 Functional Mobility Functional Mobility- Ind. Level verbal cues required;1 person;minimum assist (75% patient effort) (P) -BT Functional Mobility- Device walker, front-wheeled (P) -BT Functional Mobility-Distance (Feet) 15 (P) -BT Functional Mobility- Comment v/c for walker placement and forward flexed posture. Pt ambulated to BR and back to chair. (P) -BT Patient was able to Ambulate yes (P) -BT Row Name 07/19/251331 Activities of Daily Living BADL Assessment/Intervention toileting;grooming;feeding (P) -BT Row Name 07/19/25 133 Self-Feeding Assessment/Training Comment, (Feeding) Pt report not utilizing built up utensils and sending them with trash on meal tray. (P) -BT Row Name 07/19/25 133 Toileting Assessment/Training Bollinger Level (Toileting) toileting skills;contact guard assist (P) -BT Assistive Devices (Toileting) raised toilet seat (P) -BT Position (Toileting) unsupported sitting (P) -BT Row Name 07/19/25 1332 Grooming Assessment/Training Bollinger Level (Grooming) wash face, hands;contact guard assist (P) -BT Position (Grooming) sink side (P) -BT User Kemp (r) = Recorded By, (t) = Taken By, (c) = Cosigned By Initials Name Provider Type BT Virginia Pepe, OT Student OT Student Obj/Interventions Row Name 07/19/251335 Hand (Therapeutic Exercise) Hand (Therapeutic Exercise) strengthening exercise (P) -BT Hand Strengthening (Therapeutic Exercise) bilateral;coal wheeler strengthening;thumb pinch strengthening;finger flexion;squeeze ball/egg;red;10 repetitions (P) Red for L hand, Blue for R hand -BT Row Name 07/19/25 133 Balance Balance Assessment sitting static balance;sitting dynamic balance;standing static balance;standing dynamic balance (P) -BT Static Sitting Balance standby assist (P) -BT Dynamic Sitting Balance standby assist (P) -BT Position, Sitting Balance sitting in chair (P) -BT Static Standing Balance contact guard (P) -BT Dynamic Standing Balance minimal assist (P) -BT Position/Device Used, Standing Balance supported;walker, front-wheeled (P) -BT Balance Interventions sitting;standing;sit to stand;supported;static;dynamic;occupation based/functional task (P) -BT User Kemp (r) = Recorded By, (t) = Taken By, (c) = Cosigned By Initials Name Provider Type BT Virginia Pepe, OT Student OT Student Goals/Plan Row Name 07/19/25 1342 Transfer Goal 1 (OT) Activity/Assistive Device (Transfer Goal 1, OT) say-yh-btpsn/glryn-mo-lrp;toilet (P) -BT Bollinger Level/Cues Needed (Transfer Goal 1, OT) verbal cues required;contact guard required (P) -BT Time Frame (Transfer Goal 1, OT) intermodal dispatcher goal (LTG);1 week (P) -BT Strategies/Barriers (Transfers Goal 1, OT) Progress to BR for transfers as able to support HH distances (P) -BT Progress/Outcome (Transfer Goal 1, OT) goal revised this date (P) -BT Row Name 07/19/25 1342 Self-Feeding Goal 1 (OT) Activity/Device (Self-Feeding Goal 1, OT) built-up handle utensils (P) -BT Bollinger Level/Cues Needed (Self-Feeding Goal 1, OT) modified independence (P) -BT Time Frame (Self-Feeding Goal 1, OT) short term goal (STG);3 days (P) -BT Progress/Outcomes (Self-Feeding Goal 1, OT) goal no longer appropriate (P) Pt no longer using AE utensils -BT Row Name 07/19/25 1342 Strength Goal 1 (OT) Strength Goal 1 (OT) Pt demonstrates Bollinger with Foam Block HEP to support self-care. (P) -BT Time Frame (Strength Goal 1, OT) intermodal dispatcher goal (LTG);1 week (P) -BT Progress/Outcome (Strength Goal 1, OT) good progress toward goal (P) -BT User Kemp (r) = Recorded By, (t) = Taken By, (c) = Cosigned By Initials Name Provider Type BT Virginia Pepe, OT Student OT Student Clinical Impression Row Name 07/19/25 2528 Pain Assessment Pretreatment Pain Rating 0/10 - no pain (P) -BT Posttreatment Pain Rating 0/10 - no pain (P) -BT Row Name 07/19/25 7263 Plan of Care Review Plan of Care Reviewed With patient (P) -BT Progress improving (P) -BT Outcome Evaluation Pt continues to present below baseline with deficits of generalized weakness, impaired balance, and decreased functional endurance. Reviewed HEP with pt, will continue to benefit from IP OT to addressed deficits listed. Rec home with 24/ A and HH OT. (P) -BT Row Name 07/19/25 7538 Therapy Plan Review/Discharge Plan (OT) Anticipated Discharge Disposition (OT) home with 24/7 care;home with home health (P) -BT Row Name 07/19/25 3012 Vital Signs Pre Patient Position Sitting (P) -BT Intra Patient Position Standing (P) -BT Post Patient Position Sitting (P) -BT Row Name 07/19/25 1338 Positioning and Restraints Pre-Treatment Position sitting in chair/recliner (P) -BT Post Treatment Position other (P) -BT Other Position with other staff (P) Pt being transported to radiation treatment. -BT User Kemp (r) = Recorded By, (t) = Taken By, (c) = Cosigned By Initials Name Provider Type BT Virginia Pepe, OT Student OT Student Outcome Measures Row Name 07/19/25 1345 How much help from another is currently needed... Putting on and taking off regular lower body clothing? 3 (P) -BT Bathing (including washing, rinsing, and drying) 3 (P) -BT Toileting (which includes using toilet bed todd or urinal) 3 (P) -BT Putting on and taking off regular upper body clothing 3 (P) -BT Taking care of personal grooming (such as brushing teeth) 3 (P) -BT Eating meals 3 (P) -BT AM-PAC 6 Clicks Score (OT) 18 (P) -BT Row Name 07/19/25 1334 How much help from another person do you currently need... Turning from your back to your side while in flat bed without using bedrails? 3 -KE Moving from lying on back to sitting on the side of a flat bed without bedrails? 3 -KE Moving to and from a bed to a chair (including a wheelchair)? 3 -KE Standing up from a chair using your arms (e.g., wheelchair, bedside chair)? 3 -KE Climbing 3-5 steps with a railing? 2 -KE To walk in hospital room? 3 -KE AM-PAC 6 Clicks Score (PT) 17 -KE Highest Level of Mobility Goal Stand (1 or More Minutes)-5 -KE Row Name 07/19/25 1345 07/19/25 1334 Functional Assessment Outcome Measure Options AM-PAC 6 Clicks Daily Activity (OT) (P) -BT AM-PAC 6 Clicks Basic Mobility (PT) -KE User Kemp (r) = Recorded By, (t) = Taken By, (c) = Cosigned By Initials Name Provider Type Roxana Zavala, PT Physical Therapist BT Virginia Pepe, OT Student OT Student Occupational Therapy Education Title: PT OT COMMAND AND CONTROL OFFICER Therapies (In Progress) Topic: Occupational Therapy (Done) Point: ADL training (Done) Learning Progress Summary Patient Acceptance, E, VU by BT at 07/19/20255 Point: Home exercise program (Done) Learning Progress Summary Patient Acceptance, E, VU by BT at 07/19/20251344 Point: Precautions (Done) Learning Progress Summary Patient Acceptance, E, VU by BT at 07/19/20255 Point: Body mechanics (Done) Learning Progress Summary Patient Acceptance, E, VU by BT at 07/19/20255 User Kemp Initials Effective Dates Name Provider Type Discipline BT 05/14/25 - Virginia Pepe OT Student OT Student OT OT Recommendation and Plan Recommended discharge disposition is based on the functional assessment performed by PT/OT/Speech therapy (as applicable) and may not reflect the medical necessity determined by your provider or services covered by an individual patient's insurance plan or patient resource. Plan of Care Review Plan of Care Reviewed With: (P) patient Progress: (P) improving Outcome Evaluation: (P) Pt continues to present below baseline with deficits of generalized weakness, impaired balance, and decreased functional endurance. Reviewed HEP with pt, will continue to benefit from IP OT to addressed deficits listed. Rec home with 22/04 A and OT. Time Calculation: Time Calculation- OT Row Name 07/19/251344 Time Calculation- OT OT Start Time 1313 (P) -BT OT Received On 07/19/25 (P) -BT OT Goal Re-Cert Due Date 07/25/25 (P) -BT Timed Charges 88433 - OT Therapeutic Exercise Minutes 8 (P) -BT 26006 - OT Self Care/Mgmt Minutes 8 (P) -BT Total Minutes Timed Charges Total Minutes 16 (P) -BT Total Minutes 16 (P) -BT User Kemp (r) = Recorded By, (t) = Taken By, (c) = Cosigned By Initials Name Provider Type BT Virginia Pepe OT Student OT Student Therapy Charges for Today Code Description Service Date Service Provider Modifiers Qty [id number] OT THER PROC EA 15 MIN 07/19/2025 Virginia Pepe OT Student GO 1 ANILA Fernandez 07/19/2025 [1] Patient Active Problem List Diagnosis Malignant neoplasm of upper-outer quadrant of left breast in female, 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 Patient Name: Peter Parnell : 1960 Today's Date: 07/19/2025 Admit Date: 2025 Visit Dx: ICD-10-CM ICD-9-CM 1. Cauda equina syndrome G83.4 344.60 2. Metastatic malignant neoplasm, unspecified site C79.9 199.1 3. Adenocarcinoma of 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 C50.912 174.9 C78.7 197.7 4. Malignant neoplasm of upper-outer quadrant of left breast in female, estrogen receptor positive C50.412 174.4 Z17.0 V86.0 5. Carcinoma of breast metastatic to bone, unspecified laterality C50.919 174.9 C79.51 198.5 6. Falls R29.6 V15.88 Problem List[1] Past Medical History: Diagnosis Date Back problem Bone cancer Mets Breast cancer Diabetes mellitus Drug therapy 12/2013 History of radiation therapy 01/19/2022 L3-L5, sacrum History of radiation therapy 09/26/2022 Whole brain radiotherapy Hx of radiation therapy 04/2014 Kidney stone Liver carcinoma Mets Malignant neoplasm of upper-outer quadrant of left breast in female, estrogen receptor positive 08/22/2016 Neuropathy Radiation Past Surgical History: Procedure Laterality Date BREAST BIOPSY Left BREAST LUMPECTOMY Left 11/2013 CATARACT EXTRACTION Right 02/11/2024 HEAD/NECK LESION/CYST EXCISION Right 12/02/2020 Procedure: WIDE EXCISION MALIGNANT LESION OF SCALP; Surgeon: Evens Wagner MD; Location: [facility] OR; Service: General; Laterality: Right; LIVER BIOPSY 09/22/2019 OOPHORECTOMY PORTACATH PLACEMENT Right 2019 SKIN FULL THICKNESS GRAFT Right 12/02/2020 Procedure: FULL THICKNESS SKIN GRAFT, RESECTION OF TUMOR OF RIGHT NECK; Surgeon: Evens Wagner MD; Location: [facility] OR; Service: General; Laterality: Right; General Information Row Name 07/19/25 1324 Physical Therapy Time and Intention Document Type therapy note (daily note) - Mode of Treatment physical therapy - Row Name 07/19/25 1323 General Information Patient Profile Reviewed yes -KE Existing Precautions/Restrictions fall;spinal;other (see comments) Metastatic Breast Cancer with brain and spinal lesions -COLLIN Barriers to Rehab medically complex;previous functional deficit;physical barrier - Row Name 07/19/25 1324 Home Main Entrance Number of Stairs, Main Entrance other (see comments) pt reports she is currently having a ramp installed - Row Name 07/19/25 1327 Cognition Orientation Status (Cognition) oriented x 3 -KE Row Name 07/19/25 1325 Safety Issues/Impairments Affecting Functional Mobility Safety Issues Affecting Function (Mobility) awareness of need for assistance;safety precaution awareness;safety precautions follow- through/compliance;insight into deficits/self-awareness;sequencing abilities - Impairments Affecting Function (Mobility) balance;endurance/activity tolerance;strength;grasp;pain;coordination - User Kemp (r) = Recorded By, (t) = Taken By, (c) = Cosigned By Initials Name Provider Type Roxana Zavala, PT Physical Therapist Mobility Row Name 07/19/25 1320 Bed Mobility Comment, (Bed Mobility) C pre/post tx -COLLIN Row Name 07/19/25 1327 Transfers Comment, (Transfers) Pt navigated wheenchair ~200 ft w/ CGA however progressing to intermittent Romel as pt began to fatigue -COLLIN Row Name 07/19/25 1320 Bed-Chair Transfer Bed-Chair Bollinger (Transfers) minimum assist (75% patient effort);1 person assist -COLLIN Assistive Device (Bed-Chair Transfers) walker, front-wheeled -COLLIN Comment, (Bed-Chair Transfer) t/f to and from chair to wheelchair; VCs for improved sequencing and safety for setting brakes and set up of transfer -KE Row Name 07/19/25 1329 Sit-Stand Transfer Sit-Stand Bollinger (Transfers) moderate assist (50% patient effort);1 person assist -KE Assistive Device (Sit-Stand Transfers) walker, front-wheeled -KE Comment, (Sit-Stand Transfer) VCs for improving HP; x1 from chair w MiNAx1; x1 from wheelchair w/ ModAx1. -KE User Kemp (r) = Recorded By, (t) = Taken By, (c) = Cosigned By Initials Name Provider Type Roxana Zavala PT Physical Therapist Obj/Interventions Row Name 07/19/25 1331 Motor Skills Therapeutic Exercise knee -KE Row Name 07/19/25 1331 Knee (Therapeutic Exercise) Knee (Therapeutic Exercise) strengthening exercise -KE Knee Strengthening (Therapeutic Exercise) LAQ (long arc quad);10 repetitions;bilateral -KE Row Name 07/19/25 1331 Balance Balance Assessment sitting static balance;sitting dynamic balance;standing static balance;standing dynamic balance -KE Static Sitting Balance standby assist -KE Dynamic Sitting Balance unable to assess -KE Position, Sitting Balance sitting in chair -KE Static Standing Balance contact guard -KE Dynamic Standing Balance minimal assist -KE Position/Device Used, Standing Balance supported;walker, front-wheeled -KE Balance Interventions sitting;standing;sit to stand;static;supported;dynamic -KE Comment, Balance L knee buckling; grossly unsteady d/t generalized weakness -KE User Kemp (r) = Recorded By, (t) = Taken By, (c) = Cosigned By Initials Name Provider Type Roxana Zavala PT Physical Therapist Goals/Plan No documentation. Clinical Impression Row Name 07/19/25 1332 Pain Pretreatment Pain Rating 0/10 - no pain -KE Posttreatment Pain Rating 0/10 - no pain -KE Row Name 07/19/25 1332 Pain Scale: FACES Pre/Post-Treatment Pain: FACES Scale, Pretreatment 0-->no hurt -KE Posttreatment Pain Rating 0-->no hurt -KE Row Name 07/19/25 1332 Plan of Care Review Plan of Care Reviewed With patient -KE Outcome Evaluation Session focusing on wheelchair mobility this date, navigated 200 ft w/ initial CGA however as pt began to fatigue req Romel. Discussed w/ pt appropriate safety and sequencing w/ useof wheelchair, demo good carryover. Pt will continue to benefit from IPPT to address generalized weakness (L>R), coordination impairments, balance deficits, and decreased functional endurance. -COLLIN Row Name 07/19/25 1332 Vital Signs O2 Delivery Pre Treatment room air -KE O2 Delivery Intra Treatment room air -KE O2 Delivery Post Treatment room air -KE Pre Patient Position Sitting -KE Intra Patient Position Standing -KE Post Patient Position Sitting -KE Row Name 07/19/25 1332 Positioning and Restraints Pre-Treatment Position sitting in chair/recliner -KE Post Treatment Position chair -KE In Chair notified nsg;reclined;waffle cushion;call light within reach;encouraged to call for assist;exit alarm on;legs elevated;heels elevated;RUE elevated;LUE elevated -COLLIN User Kemp (r) = Recorded By, (t) = Taken By, (c) = Cosigned By Initials Name Provider Type Roxana Zavala PT Physical Therapist Outcome Measures Row Name 07/19/25 5393 How much help from another person do you currently need... Turning from your back to your side while in flat bed without using bedrails? 3 -KE Moving from lying on back to sitting on the side of a flat bed without bedrails? 3 -KE Moving to and from a bed to a chair (including a wheelchair)? 3 -KE Standing up from a chair using your arms (e.g., wheelchair, bedside chair)? 3 -KE Climbing 3-5 steps with a railing? 2 -KE To walk in hospital room? 3 -KE AM-PAC 6 Clicks Score (PT) 17 -KE Highest Level of Mobility Goal Stand (1 or More Minutes)-5 -KE Row Name 07/19/25 4223 Functional Assessment Outcome Measure Options AM-PAC 6 Clicks Basic Mobility (PT) -COLLIN User Kemp (r) = Recorded By, (t) = Taken By, (c) = Cosigned By Initials Name Provider Type Roxana Zavala PT Physical Therapist Physical Therapy Education Title: PT OT COMMAND AND CONTROL OFFICER Therapies (In Progress) Topic: Physical Therapy (In Progress) Point: Mobility training (In Progress) Learning Progress Summary Patient Acceptance, E, NR by COLLIN at 07/19/2025 1335 Acceptance, E,D, NR by CT at 07/18/2025 1027 Eager, E,D, NR by CT at 07/17/2025 0920 Acceptance, E,TB, VU by AM at 07/16/2025 2247 Acceptance, E, VU by KE at 07/16/2025 1426 Acceptance, E, VU by KE at 07/15/2025 1143 Point: Home exercise program (In Progress) Learning Progress Summary Patient Acceptance, E, NR by KE at 07/19/2025 1335 Acceptance, E,D, NR by CT at 07/18/2025 1027 Eager, E,D, NR by CT at 07/17/2025 0920 Acceptance, E,TB, VU by AM at 07/16/2025 2247 Point: Body mechanics (In Progress) Learning Progress Summary Patient Acceptance, E, NR by KE at 07/19/20255 Acceptance, E,D, NR by CT at 07/18/2025 1027 Eager, E,D, NR by CT at 07/17/2025 0920 Acceptance, E,TB, VU by AM at 07/16/2025 2247 Acceptance, E, VU by KE at 07/16/2025 1426 Acceptance, E, VU by KE at 07/15/2025 1143 Point: Precautions (In Progress) Learning Progress Summary Patient Acceptance, E, NR by KE at 07/19/20255 Acceptance, E,D, NR by CT at 07/18/2025 1027 Eager, E,D, NR by CT at 07/17/2025 0920 Acceptance, E,TB, VU by AM at 07/16/2025 2247 Acceptance, E, VU by KE at 07/16/2025 1426 Acceptance, E, VU by KE at 07/15/2025 1143 User Kemp Initials Effective Dates Name Provider Type Discipline CT 04/05/23 - Walter Pepe, PT Physical Therapist PT AM 03/23/25 - Mireya Landers RN Registered Nurse Nurse 08/15/23 - Roxana Rahman, PT Physical Therapist PT PT Recommendation and Plan Recommended discharge disposition is based on the functional assessment performed by PT/OT/Speech therapy (as applicable) and may not reflect the medical necessity determined by your provider or services covered by an individual patient's insurance plan or patient resource. Planned Therapy Interventions (PT): balance training, bed mobility training, home exercise program,gait training, neuromuscular re-education, patient/family education, postural re-education, ROM (range of motion), stair training, strengthening, stretching, transfer training Therapy Frequency (PT): daily Outcome Evaluation: Session focusing on wheelchair mobility this date, navigated 200 ft w/ initial CGA however as pt began to fatigue req Romel. Discussed w/ pt appropriate safety and sequencing w/ use of wheelchair, demo good carryover. Pt will continue to benefit from IPPT to address generalized weakness (L>R), coordination impairments, balance deficits, and decreased functional endurance. Time Calculation: PT Evaluation Complexity History, PT Evaluation Complexity: 3 or more personal factors and/or comorbidities Examination of Body Systems (PT Eval Complexity): total of 3 or more elements Clinical Presentation (PT Evaluation Complexity): evolving Clinical Decision Making (PT Evaluation Complexity): moderate complexity Overall Complexity (PT Evaluation Complexity): moderate complexity PT Charges Row Name 07/19/25 1335 Time Calculation Start Time 1052 -KE PT Received On 07/19/25 -KE Timed Charges 25820 - PT Therapeutic Activity Minutes 30 -KE Total Minutes Timed Charges Total Minutes 30 -KE Total Minutes 30 -KE User Kemp (r) = Recorded By, (t) = Taken By, (c) = Cosigned By Initials Name Provider Type Roxana Zavala PT Physical Therapist Therapy Charges for Today Code Description Service Date Service Provider Modifiers Qty [id number] PT THERAPEUTIC ACT EA 15 MIN 07/19/2025 Roxana Rahman PT GP 2 PT G-Codes Outcome Measure Options: AM-PAC 6 Clicks Basic Mobility (PT) AM-PAC 6 Clicks Score (PT): 17 AM-PAC 6 Clicks Score (OT): 18 PT Discharge Summary Anticipated Discharge Disposition (PT): home with 24/7 care, home with home health Roxana Rahman PT 07/19/2025 [1] Patient Active Problem List Diagnosis Malignant neoplasm of upper-outer quadrant of left breast in female, 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 Cauda equina syndrome G83.4 344.60 2. Metastatic malignant neoplasm, unspecified site C79.9 199.1 3. Adenocarcinoma of 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 C50.912 174.9 C78.7 197.7 4. Malignant neoplasm of upper-outer quadrant of left breast in female, estrogen receptor positive C50.412 174.4 Z17.0 V86.0 5. Carcinoma of breast metastatic to bone, unspecified laterality C50.919 174.9 C79.51 198.5 6. Falls R29.6 V15.88 Problem List[1] Past Medical History: Diagnosis Date Back problem Bone cancer Mets Breast cancer Diabetes mellitus Drug therapy 12/2013 History of radiation therapy 01/19/2022 L3-L5, sacrum History of radiation therapy 09/26/2022 Whole brain radiotherapy Hx of radiation therapy 04/2014 Kidney stone Liver carcinoma Mets Malignant neoplasm of upper-outer quadrant of left breast in female, estrogen receptor positive 08/22/2016 Neuropathy Radiation Past Surgical History: Procedure Laterality Date BREAST BIOPSY Left BREAST LUMPECTOMY Left 11/2013 CATARACT EXTRACTION Right 02/11/2024 HEAD/NECK LESION/CYST EXCISION Right 12/02/2020 Procedure: WIDE EXCISION MALIGNANT LESION OF SCALP; Surgeon: Evens Wagner MD; Location: [facility]; Service: General; Laterality: Right; LIVER BIOPSY 09/22/2019 OOPHORECTOMY PORTACATH PLACEMENT Right 2019 SKIN FULL THICKNESS GRAFT Right 12/02/2020 Procedure: FULL THICKNESS SKIN GRAFT, RESECTION OF TUMOR OF RIGHT NECK; Surgeon: Evens Wagner MD; Location: [facility]; Service: General; Laterality: Right; General Information Row Name 07/18/25 1006 Physical Therapy Time and Intention Document Type therapy note (daily note) -CT Mode of Treatment physical therapy -CT Row Name 07/18/25 1006 General Information Patient Profile Reviewed yes -CT Prior Level of Function independent:;all household mobility;transfer;gait;bed mobility;ADL's -CT Existing Precautions/Restrictions fall;spinal;other (see comments) -CT Barriers to Rehab medically complex;visual deficit;physical barrier -CT Row Name 07/18/25 1006 Living Environment Current Living Arrangements home -CT People in Home spouse -CT Row Name 07/18/25 1006 Home Main Entrance Number of Stairs, Main Entrance four -CT Stair Railings, Main Entrance railings safe and in good condition -CT Row Name 07/18/25 1006 Stairs Within Home, Primary Number of Stairs, Within Home, Primary none -CT Row Name 07/18/25 1006 Cognition Orientation Status (Cognition) oriented x 3 -CT Row Name 07/18/25 1006 Safety Issues/Impairments Affecting Functional Mobility Safety Issues Affecting Function (Mobility) awareness of need for assistance;safety precaution awareness;insight into deficits/self- awareness;sequencing abilities -CT Impairments Affecting Function (Mobility) balance;endurance/activity tolerance;strength;grasp -CT User Kemp (r) = Recorded By, (t) = Taken By, (c) = Cosigned By Initials Name Provider Type CT Walter Pepe, PT Physical Therapist Mobility Row Name 07/18/25 1008 Bed Mobility Bed Mobility supine-sit -CT Scooting/Bridging Bollinger (Bed Mobility) minimum assist (75% patient effort);verbal cues -CT Supine-Sit Bollinger (Bed Mobility) minimum assist (75% patient effort) -CT Comment, (Bed Mobility) Left UE weaker today with wb ing and push off from supine to sit. Less LLE numbness better limited to lateral knee and foreleg today. Feels she is better with hip flexion, knee flexion and ankle strength remain impaired with foot drop and imparied Pf. -CT Row Name 07/18/25 1008 Bed-Chair Transfer Bed-Chair Bollinger (Transfers) 1 person assist;minimum assist (75% patient effort) -CT Assistive Device (Bed-Chair Transfers) walker, front-wheeled -CT Row Name 07/18/25 1008 Sit-Stand Transfer Sit-Stand Bollinger (Transfers) 1 person assist;minimum assist (75% patient effort) -CT Assistive Device (Sit-Stand Transfers) walker, front-wheeled -CT Row Name 07/18/25 1008 Gait/Stairs (Locomotion) Bollinger Level (Gait) minimum assist (75% patient effort) -CT Assistive Device (Gait) walker, front-wheeled -CT Patient was able to Ambulate yes -CT Distance in Feet (Gait) 120 -CT Deviations/Abnormal Patterns (Gait) bilateral deviations;gait speed decreased;stride length decreased;ataxic;base of support, narrow -CT Bilateral Gait Deviations heel strike decreased -CT Left Sided Gait Deviations foot drop/toe drag -CT User Kemp (r) = Recorded By, (t) = Taken By, (c) = Cosigned By Initials Name Provider Type CT Walter Pepe, PT Physical Therapist Obj/Interventions Row Name 07/18/25 1018 Range of Motion Comprehensive General Range of Motion lower extremity range of motion deficits identified -CT Comment, General Range of Motion LLE knee flexion limited decreased DF EV INV. -CT Row Name 07/18/25 1018 Strength Comprehensive (MMT) General Manual Muscle Testing (MMT) Assessment lower extremity strength deficits identified -CT Comment, General Manual Muscle Testing (MMT) Assessment LLE 4- able to sLR and resisted DF knee ext-CT Row Name 07/18/25 1018 Motor Skills Motor Skills functional endurance;neuro-muscular function;motor control/coordination interventions -CT Neuromuscular Function moderate impairment -CT Row Name 07/18/25 1018 Balance Balance Assessment sitting static balance;sitting dynamic balance;standing static balance;standing dynamic balance -CT Static Sitting Balance supervision -CT Dynamic Sitting Balance minimal assist -CT Static Standing Balance minimal assist -CT Dynamic Standing Balance minimal assist -CT Position/Device Used, Standing Balance walker, front-wheeled -CT Balance Interventions sitting;standing;sit to stand;supported;dynamic;weight shifting activity -CT Row Name 07/18/25 1018 Lower Extremity (Manual Muscle Testing) Lower Extremity: Manual Muscle Testing (MMT) left ankle strength deficit;left knee strength deficit;left hip strength deficit -CT Row Name 07/18/25 1018 Left Ankle/Foot (Manual Muscle Testing) Left Ankle Manual Muscle Testing (MMT) dorsiflexion;plantarflexion -CT User Kemp (r) = Recorded By, (t) = Taken By, (c) = Cosigned By Initials Name Provider Type CT Walter Pepe, PT Physical Therapist Goals/Plan No documentation. Clinical Impression Row Name 07/18/25 1024 Pain Pretreatment Pain Rating 0/10 - no pain -CT Posttreatment Pain Rating 0/10 - no pain -CT Row Name 07/18/25 1024 Plan of Care Review Plan of Care Reviewed With patient -CT Progress improving -CT Outcome Evaluation Less numbness did required min assist but walked 150 ft with RW. Min a with transfers and went back to bed for nap. LUE decreased motor control with reaching and push pull WB ing. -CT Row Name 07/18/25 1024 Therapy Assessment/Plan (PT) Rehab Potential (PT) limited -CT Criteria for Skilled Interventions Met (PT) yes;skilled treatment is necessary -CT Therapy Frequency (PT) daily -CT Row Name 07/18/25 1024 Positioning and Restraints Pre-Treatment Position in bed -CT Post Treatment Position chair -CT In Chair notified nsg;reclined;call light within reach;with family/caregiver;legs elevated -CT User Kemp (r) = Recorded By, (t) = Taken By, (c) = Cosigned By Initials Name Provider Type CT Walter Pepe, PT Physical Therapist Outcome Measures Row Name 07/18/25 1027 How much help from another person do you currently need... Turning from your back to your side while in flat bed without using bedrails? 3 -CT Moving from lying on back to sitting on the side of a flat bed without bedrails? 3 -CT Moving to and from a bed to a chair (including a wheelchair)? 3 -CT Standing up from a chair using your arms (e.g., wheelchair, bedside chair)? 3 -CT Climbing 3-5 steps with a railing? 2 -CT To walk in hospital room? 3 -CT AM-PAC 6 Clicks Score (PT) 17 -CT Highest Level of Mobility Goal Stand (1 or More Minutes)-5 -CT Row Name 07/18/25 1027 Functional Assessment Outcome Measure Options AM-PAC 6 Clicks Basic Mobility (PT) -CT User Kemp (r) = Recorded By, (t) = Taken By, (c) = Cosigned By Initials Name Provider Type CT Walter Pepe, PT Physical Therapist Physical Therapy Education Title: PT OT COMMAND AND CONTROL OFFICER Therapies (In Progress) Topic: Physical Therapy (In Progress) Point: Mobility training (In Progress) Learning Progress Summary Patient Acceptance, E,D, NR by CT at 07/18/2025 1027 Eager, E,D, NR by CT at 07/17/2025 0920 Acceptance, E,TB, VU by AM at 07/16/2025 2247 Acceptance, E, VU by KE at 07/16/2025 1426 Acceptance, E, VU by KE at 07/15/2025 1143 Point: Home exercise program (In Progress) Learning Progress Summary Patient Acceptance, E,D, NR by CT at 07/18/2025 1027 Eager, E,D, NR by CT at 07/17/2025 0920 Acceptance, E,TB, VU by AM at 07/16/2025 2247 Point: Body mechanics (In Progress) Learning Progress Summary Patient Acceptance, E,D, NR by CT at 07/18/2025 1027 Eager, E,D, NR by CT at 07/17/2025 0920 Acceptance, E,TB, VU by AM at 07/16/20252246 Acceptance, E, VU by KE at 07/16/2025 1426 Acceptance, E, VU by KE at 07/15/2025 1143 Point: Precautions (In Progress) Learning Progress Summary Patient Acceptance, E,D, NR by CT at 07/18/2025 1027 Eager, E,D, NR by CT at 07/17/2025 0920 Acceptance, E,TB, VU by AM at 07/16/2025 2247 Acceptance, E, VU by KE at 07/16/2025 1426 Acceptance, E, VU by KE at 07/15/2025 1143 User Kemp Initials Effective Dates Name Provider Type Discipline CT 04/05/23 - Walter Pepe, PT Physical Therapist PT AM 03/23/25 - Mireya Landers RN Registered Nurse Nurse 08/15/23 - Roxana Rahman, MARLEN Physical Therapist PT PT Recommendation and Plan Recommended discharge disposition is based on the functional assessment performed by PT/OT/Speech therapy (as applicable) and may not reflect the medical necessity determined by your provider or services covered by an individual patient's insurance plan or patient resource. Therapy Frequency (PT): daily Progress: improving Outcome Evaluation: Less numbness did required min assist but walked 150 ft with RW. Min a with transfers and went back to bed for nap. LUE decreased motor control with reaching and push pull WB ing. Time Calculation: PT Charges Row Name 07/18/25 1028 Time Calculation Start Time 0945 -CT Time Calculation- PT Total Timed Code Minutes- PT 30 minute(s) -CT Timed Charges 66714 - Gait Training Minutes 30 -CT Total Minutes Timed Charges Total Minutes 30 -CT Total Minutes 30 -CT User Kemp (r) = Recorded By, (t) = Taken By, (c) = Cosigned By Initials Name Provider Type CT Walter Pepe, PT Physical Therapist Therapy Charges for Today Code Description Service Date Service Provider Modifiers Qty [id number] HC GAIT TRAINING EA 15 MIN 07/17/2025 Walter Pepe, PT GP 2 [id number] PT SELF CARE/MGMT/TRAIN EA 15 MIN 07/17/2025 Walter Pepe, PT GP 1 59149632803 HC GAIT TRAINING EA 15 MIN 07/18/2025 Walter Pepe, PT GP 2 PT G-Codes Outcome Measure Options: AM-PAC 6 Clicks Basic Mobility (PT) AM-PAC 6 Clicks Score (PT): 17 AM-PAC 6 Clicks Score (OT): 18 PT Discharge Summary Anticipated Discharge Disposition (PT): home with /7 care, home with home health Walter Pepe PT 07/18/2025 [1] Patient Active Problem List Diagnosis Malignant neoplasm of upper-outer quadrant of left breast in female, 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 Patient Name: Peter Parnell : 1960 Today's Date: 07/17/2025 Admit Date: 2025 Visit Dx: ICD-10-CM ICD-9-CM 1. Cauda equina syndrome G83.4 344.60 2. Metastatic malignant neoplasm, unspecified site C79.9 199.1 3. Adenocarcinoma of 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 C50.912 174.9 C78.7 197.7 4. Malignant neoplasm of upper-outer quadrant of left breast in female, estrogen receptor positive C50.412 174.4 Z17.0 V86.0 5. Carcinoma of breast metastatic to bone, unspecified laterality C50.919 174.9 C79.51 198.5 6. Falls R29.6 V15.88 Problem List[1] Past Medical History: Diagnosis Date Back problem Bone cancer Mets Breast cancer Diabetes mellitus Drug therapy 12/2013 History of radiation therapy 01/19/2022 L3-L5, sacrum History of radiation therapy 09/26/2022 Whole brain radiotherapy Hx of radiation therapy 04/2014 Kidney stone Liver carcinoma Mets Malignant neoplasm of upper-outer quadrant of left breast in female, estrogen receptor positive 08/22/2016 Neuropathy Radiation Past Surgical History: Procedure Laterality Date BREAST BIOPSY Left BREAST LUMPECTOMY Left 11/2013 CATARACT EXTRACTION Right 02/11/2024 HEAD/NECK LESION/CYST EXCISION Right 12/02/2020 Procedure: WIDE EXCISION MALIGNANT LESION OF SCALP; Surgeon: Evens Wagner MD; Location: [facility]; Service: General; Laterality: Right; LIVER BIOPSY 09/22/2019 OOPHORECTOMY PORTACATH PLACEMENT Right 2019 SKIN FULL THICKNESS GRAFT Right 12/02/2020 Procedure: FULL THICKNESS SKIN GRAFT, RESECTION OF TUMOR OF RIGHT NECK; Surgeon: Evens Wagner MD; Location: [facility]; Service: General; Laterality: Right; General Information Row Name 07/17/25 0900 Physical Therapy Time and Intention Document Type therapy note (daily note) -CT Mode of Treatment physical therapy -CT Row Name 07/17/25 0900 General Information Patient Profile Reviewed yes -CT Prior Level of Function independent:;all household mobility;transfer;bed mobility;gait;ADL's -CT Existing Precautions/Restrictions fall;spinal;other (see comments) -CT Barriers to Rehab medically complex;visual deficit;physical barrier -CT Row Name 07/17/25899 Living Environment Current Living Arrangements home -CT People in Home spouse -CT Row Name 07/17/25899 Home Main Entrance Number of Stairs, Main Entrance four -CT Stair Railings, Main Entrance railings safe and in good condition -CT Row Name 07/17/25899 Stairs Within Home, Primary Number of Stairs, Within Home, Primary none -CT Row Name 07/17/25899 Cognition Orientation Status (Cognition) oriented x 3 -CT Row Name 07/17/25899 Safety Issues/Impairments Affecting Functional Mobility Safety Issues Affecting Function (Mobility) awareness of need for assistance;safety precaution awareness;insight into deficits/self- awareness;sequencing abilities -CT Impairments Affecting Function (Mobility) balance;endurance/activity tolerance;strength;grasp -CT User Kemp (r) = Recorded By, (t) = Taken By, (c) = Cosigned By Initials Name Provider Type CT Walter Pepe, PT Physical Therapist Mobility Row Name 07/17/25905 Bed Mobility Bed Mobility supine-sit -CT Scooting/Bridging Bollinger (Bed Mobility) verbal cues;contact guard -CT Supine-Sit Bollinger (Bed Mobility) contact guard -CT Assistive Device (Bed Mobility) bed rails -CT Comment, (Bed Mobility) better getting to EOB with improved mobilty coming out on R side due to LLEweakness. -CT Row Name 07/17/25905 Bed-Chair Transfer Bed-Chair Bollinger (Transfers) contact guard;1 person assist -CT Assistive Device (Bed-Chair Transfers) walker, front-wheeled -CT Row Name 07/17/25905 Sit-Stand Transfer Sit-Stand Bollinger (Transfers) contact guard;1 person assist -CT Assistive Device (Sit-Stand Transfers) walker, front-wheeled -CT Row Name 07/17/25905 Gait/Stairs (Locomotion) Bollinger Level (Gait) contact guard -CT Assistive Device (Gait) walker, front-wheeled -CT Patient was able to Ambulate yes -CT Distance in Feet (Gait) 100 -CT Deviations/Abnormal Patterns (Gait) bilateral deviations;gait speed decreased;stride length decreased;ataxic;base of support, narrow -CT Bilateral Gait Deviations heel strike decreased -CT Left Sided Gait Deviations foot drop/toe drag better gait with intermittent foot drop left. No heelstrike and occasional left rotational moment and left trunk sway. CG m/t thruout session. -CT User Kemp (r) = Recorded By, (t) = Taken By, (c) = Cosigned By Initials Name Provider Type CT Walter Pepe PT Physical Therapist Obj/Interventions Row Name 07/17/25910 Range of Motion Comprehensive General Range of Motion bilateral upper extremity ROM WFL -CT Row Name 07/17/25910 Strength Comprehensive (MMT) General Manual Muscle Testing (MMT) Assessment lower extremity strength deficits identified -CT Comment, General Manual Muscle Testing (MMT) Assessment LLE 4- able to SLR and resisted DF knee ext-CT Row Name 07/17/25910 Motor Skills Motor Skills functional endurance;neuro-muscular function;motor control/coordination interventions -CT Therapeutic Exercise ankle -CT Row Name 07/17/25910 Ankle (Therapeutic Exercise) Ankle (Therapeutic Exercise) AROM (active range of motion) -CT Ankle AROM (Therapeutic Exercise) bilateral;3 repetitions;5 repetitions -CT Row Name 07/17/25910 Balance Balance Assessment sitting static balance;sitting dynamic balance;standing static balance;standing dynamic balance -CT Static Sitting Balance supervision -CT Dynamic Sitting Balance contact guard -CT Static Standing Balance contact guard -CT Dynamic Standing Balance contact guard -CT Position/Device Used, Standing Balance walker, front-wheeled -CT Balance Interventions sitting;standing;sit to stand;supported;dynamic;weight shifting activity -CT Comment, Balance 2-3 moments of left rotation of body during stance over left leg. -CT Row Name 07/17/25910 Lower Extremity (Manual Muscle Testing) Lower Extremity: Manual Muscle Testing (MMT) left ankle strength deficit;left knee strength deficit;left hip strength deficit -CT Row Name 07/17/25910 Left Ankle/Foot (Manual Muscle Testing) Left Ankle Manual Muscle Testing (MMT) dorsiflexion;plantarflexion -CT User Kemp (r) = Recorded By, (t) = Taken By, (c) = Cosigned By Initials Name Provider Type CT Walter Pepe PT Physical Therapist Goals/Plan No documentation. Clinical Impression Row Name 07/17/2514 Pain Pretreatment Pain Rating 0/10 - no pain -CT Posttreatment Pain Rating 0/10 - no pain -CT Row Name 07/17/2514 Plan of Care Review Plan of Care Reviewed With patient -CT Progress improving -CT Outcome Evaluation Transfer supine to sit with supervision to CG. CG sit to stand and ambululate 100 ft with RW adjusted to pt for home. OOB in chair to tolerance. Discussed energy conservation. May need AFO for L foot monitor recover as radiation is completed. -CT Row Name 07/17/2514 Therapy Assessment/Plan (PT) Rehab Potential (PT) limited -CT Criteria for Skilled Interventions Met (PT) yes;skilled treatment is necessary -CT Therapy Frequency (PT) daily -CT Row Name 07/17/2514 Positioning and Restraints Pre-Treatment Position in bed -CT Post Treatment Position chair -CT In Chair notified nsg;reclined;sitting;call light within reach;with family/caregiver;legs elevated -CT User Kemp (r) = Recorded By, (t) = Taken By, (c) = Cosigned By Initials Name Provider Type CT Walter Pepe, PT Physical Therapist Outcome Measures No documentation. Physical Therapy Education Title: PT OT COMMAND AND CONTROL OFFICER Therapies (In Progress) Topic: Physical Therapy (In Progress) Point: Mobility training (In Progress) Learning Progress Summary Patient Eager, E,D, NR by CT at 07/17/202520 Acceptance, E,TB, VU by AM at 07/16/20252246 Acceptance, E, VU by KE at 07/16/2025 1426 Acceptance, E, VU by KE at 07/15/2025 1143 Point: Home exercise program (In Progress) Learning Progress Summary Patient Eager, E,D, NR by CT at 07/17/202520 Acceptance, E,TB, VU by AM at 07/16/20257 Point: Body mechanics (In Progress) Learning Progress Summary Patient Eager, E,D, NR by CT at 07/17/2025 0920 Acceptance, E,TB, VU by AM at 07/16/20252246 Acceptance, E, VU by KE at 07/16/2025 1426 Acceptance, E, VU by KE at 07/15/2025 1143 Point: Precautions (In Progress) Learning Progress Summary Patient Eager, E,D, NR by CT at 07/17/2025 0920 Acceptance, E,TB, VU by AM at 07/16/2025 2247 Acceptance, E, VU by KE at 07/16/2025 1426 Acceptance, E, VU by KE at 07/15/2025 1143 User Kemp Initials Effective Dates Name Provider Type Discipline CT 04/05/23 - Walter Pepe, MARLEN Physical Therapist PT AM 03/23/25 - Mireya Landers RN Registered Nurse Nurse 08/15/23 - Roxana Rahman, MARLEN Physical Therapist PT PT Recommendation and Plan Recommended discharge disposition is based on the functional assessment performed by PT/OT/Speech therapy (as applicable) and may not reflect the medical necessity determined by your provider or services covered by an individual patient's insurance plan or patient resource. Therapy Frequency (PT): daily Progress: improving Outcome Evaluation: Transfer supine to sit with supervision to CG. CG sit to stand and ambululate 100 ft with RW adjusted to pt for home. OOB in chair to tolerance. Discussed energy conservation. Mayneed AFO for L foot monitor recover as radiation is completed. Time Calculation: PT Charges Row Name 07/17/25 0922 Time Calculation Start Time 0815 -CT PT Received On 07/17/25 -CT Time Calculation- PT Total Timed Code Minutes- PT 45 minute(s) -CT Timed Charges 45206 - Gait Training Minutes 30 -CT 42638 - PT Self Care/Mgmt Minutes 15 -CT Total Minutes Timed Charges Total Minutes 45 -CT Total Minutes 45 -CT User Kemp (r) = Recorded By, (t) = Taken By, (c) = Cosigned By Initials Name Provider Type CT Walter Pepe, MARLEN Physical Therapist Therapy Charges for Today Code Description Service Date Service Provider Modifiers Qty [id number] HC GAIT TRAINING EA 15 MIN 07/17/2025 Walter Pepe, PT GP 2 [id number] HC PT SELF CARE/MGMT/TRAIN EA 15 MIN 07/17/2025 Walter Pepe, PT GP 1 PT G-Codes Outcome Measure Options: AM-PAC 6 Clicks Basic Mobility (PT) AM-PAC 6 Clicks Score (PT): 19 AM-PAC 6 Clicks Score (OT): 18 PT Discharge Summary Anticipated Discharge Disposition (PT): home with /7 care, home with home health Walter Pepe, PT 07/17/2025 [1] Patient Active Problem List Diagnosis Malignant neoplasm of upper-outer quadrant of left breast in female, 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 Patient Name: Peter Parnell : 1960 Today's Date: 07/16/2025 Admit Date: 2025 Visit Dx: ICD-10-CM ICD-9-CM 1. Cauda equina syndrome G83.4 344.60 2. Metastatic malignant neoplasm, unspecified site C79.9 199.1 3. Adenocarcinoma of 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 C50.912 174.9 C78.7 197.7 4. Malignant neoplasm of upper-outer quadrant of left breast in female, estrogen receptor positive C50.412 174.4 Z17.0 V86.0 5. Carcinoma of breast metastatic to bone, unspecified laterality C50.919 174.9 C79.51 198.5 6. Falls R29.6 V15.88 Problem List[1] Past Medical History: Diagnosis Date Back problem Bone cancer Mets Breast cancer Diabetes mellitus Drug therapy 12/2013 History of radiation therapy 01/19/2022 L3-L5, sacrum History of radiation therapy 09/26/2022 Whole brain radiotherapy Hx of radiation therapy 04/2014 Kidney stone Liver carcinoma Mets Malignant neoplasm of upper-outer quadrant of left breast in female, estrogen receptor positive 08/22/2016 Neuropathy Radiation Past Surgical History: Procedure Laterality Date BREAST BIOPSY Left BREAST LUMPECTOMY Left 11/2013 CATARACT EXTRACTION Right 02/11/2024 HEAD/NECK LESION/CYST EXCISION Right 12/02/2020 Procedure: WIDE EXCISION MALIGNANT LESION OF SCALP; Surgeon: Evens Wagner MD; Location: [facility]; Service: General; Laterality: Right; LIVER BIOPSY 09/22/2019 OOPHORECTOMY PORTACATH PLACEMENT Right 2019 SKIN FULL THICKNESS GRAFT Right 12/02/2020 Procedure: FULL THICKNESS SKIN GRAFT, RESECTION OF TUMOR OF RIGHT NECK; Surgeon: Evens Wagner MD; Location: [facility]; Service: General; Laterality: Right; General Information Row Name 07/16/25 1417 Physical Therapy Time and Intention Document Type therapy note (daily note) -COLLIN Mode of Treatment physical therapy - Row Name 07/16/25 141 General Information Patient Profile Reviewed yes -COLLIN Existing Precautions/Restrictions fall;spinal;other (see comments) Metastatic Breast Cancer with brain and spinal lesions -COLLIN Barriers to Rehab medically complex;previous functional deficit;physical barrier -KE Row Name 07/16/25 141 Cognition Orientation Status (Cognition) oriented x 3 - Row Name 07/16/25 141 Safety Issues/Impairments Affecting Functional Mobility Safety Issues Affecting Function (Mobility) awareness of need for assistance;safety precaution awareness;safety precautions follow- through/compliance;insight into deficits/self-awareness;sequencing abilities -COLLIN Impairments Affecting Function (Mobility) balance;endurance/activity tolerance;strength;grasp -KE User Kemp (r) = Recorded By, (t) = Taken By, (c) = Cosigned By Initials Name Provider Type Roxana Zavala, MARLEN Physical Therapist Mobility Row Name 07/16/25 1419 Bed Mobility Bed Mobility supine-sit -KE Supine-Sit Bollinger (Bed Mobility) minimum assist (75% patient effort);1 person assist -COLLIN Assistive Device (Bed Mobility) head of bed elevated;bed rails -COLLIN Comment, (Bed Mobility) increased time to reach EOB, VCs for sequencing -KE Row Name 07/16/25 141 Sit-Stand Transfer Sit-Stand Bollinger (Transfers) minimum assist (75% patient effort);1 person assist -COLLIN Assistive Device (Sit-Stand Transfers) walker, front-wheeled -COLLIN Comment, (Sit-Stand Transfer) x1 from EOB, x1 from commode - Row Name 07/16/25 141 Gait/Stairs (Locomotion) Bollinger Level (Gait) 1 person assist;minimum assist (75% patient effort) -KE Assistive Device (Gait) walker, front-wheeled -KE Patient was able to Ambulate yes -KE Distance in Feet (Gait) 12 +12 -KE Deviations/Abnormal Patterns (Gait) bilateral deviations;gait speed decreased;stride length decreased;ataxic;base of support, narrow -KE Bilateral Gait Deviations forward flexed posture;heel strike decreased -KE Left Sided Gait Deviations knee buckling, left side -KE Comment, (Gait/Stairs) Pt demo inconsistent step lengths w/ knee buckling LLE, limited heel strike,slowed pace. VCs for improved management of FWW. MOdA to correct x2 instances of knee buckling. Further distances limited by fatigue. -KE User Kemp (r) = Recorded By, (t) = Taken By, (c) = Cosigned By Initials Name Provider Type Roxana Zavala PT Physical Therapist Obj/Interventions Row Name 07/16/25 1423 Balance Balance Assessment sitting static balance;sitting dynamic balance;standing static balance;standing dynamic balance -COLLIN Static Sitting Balance standby assist -COLLIN Dynamic Sitting Balance contact guard -KE Position, Sitting Balance sitting edge of bed -KE Static Standing Balance minimal assist;1-person assist -KE Dynamic Standing Balance moderate assist;1-person assist -KE Position/Device Used, Standing Balance supported;walker, front-wheeled -KE Balance Interventions sitting;standing;sit to stand;supported;static;dynamic -COLLIN Comment, Balance x2 instances of L knee buckling req modA to correct -KE User Kemp (r) = Recorded By, (t) = Taken By, (c) = Cosigned By Initials Name Provider Type Roxana Zavala PT Physical Therapist Goals/Plan No documentation. Clinical Impression Row Name 07/16/25 1424 Pain Pretreatment Pain Rating 0/10 - no pain -KE Posttreatment Pain Rating 0/10 - no pain -KE Row Name 07/16/25 1424 Pain Scale: FACES Pre/Post-Treatment Pain: FACES Scale, Pretreatment 0-->no hurt -KE Posttreatment Pain Rating 0-->no hurt -KE Row Name 07/16/25 1423 Plan of Care Review Plan of Care Reviewed With patient -KE Outcome Evaluation Pt amb two short bouts of gait in room w/ FWW, continues to present w/ L knee buckling and gait instabilties requiring ModAx1 to correct. Continue progressing current PT POC as tolerated to address deficits in strength, balance, and functional endurance. -KE Row Name 07/16/25 1424 Vital Signs O2 Delivery Pre Treatment room air -KE O2 Delivery Intra Treatment room air -KE O2 Delivery Post Treatment room air -KE Pre Patient Position Supine -KE Intra Patient Position Standing -KE Post Patient Position Sitting -KE Row Name 07/16/25 1424 Positioning and Restraints Pre-Treatment Position in bed -KE Post Treatment Position chair -KE In Chair notified nsg;reclined;waffle cushion;call light within reach;encouraged to call for assist;exit alarm on;legs elevated -KE User Kemp (r) = Recorded By, (t) = Taken By, (c) = Cosigned By Initials Name Provider Type Roxana Zavala PT Physical Therapist Outcome Measures Row Name 07/16/25 142 How much help from another person do you currently need... Turning from your back to your side while in flat bed without using bedrails? 4 -KE Moving from lying on back to sitting on the side of a flat bed without bedrails? 3 -KE Moving to and from a bed to a chair (including a wheelchair)? 3 -KE Standing up from a chair using your arms (e.g., wheelchair, bedside chair)? 3 -KE Climbing 3-5 steps with a railing? 2 -KE To walk in hospital room? 2 -KE AM-PAC 6 Clicks Score (PT) 17 -KE Highest Level of Mobility Goal Stand (1 or More Minutes)-5 -KE Row Name 07/16/25 142 Functional Assessment Outcome Measure Options AM-PAC 6 Clicks Basic Mobility (PT) -KE User Kemp (r) = Recorded By, (t) = Taken By, (c) = Cosigned By Initials Name Provider Type Roxana Zavala PT Physical Therapist Physical Therapy Education Title: PT OT COMMAND AND CONTROL OFFICER Therapies (In Progress) Topic: Physical Therapy (In Progress) Point: Mobility training (Done) Learning Progress Summary Patient Acceptance, E, VU by COLLIN at 07/16/2025 1426 Acceptance, E, VU by COLLIN at 07/15/2025 1143 Point: Home exercise program (Not Started) Learner Progress: Not documented in this visit. Point: Body mechanics (Done) Learning Progress Summary Patient Acceptance, E, VU by COLLIN at 07/16/2025 1426 Acceptance, E, VU by COLLIN at 07/15/2025 1143 Point: Precautions (Done) Learning Progress Summary Patient Acceptance, E, VU by COLLIN at 07/16/2025 1426 Acceptance, E, VU by COLLIN at 07/15/2025 1143 User Kemp Initials Effective Dates Name Provider Type Discipline 08/15/23 - Roxana Rahman PT Physical Therapist PT PT Recommendation and Plan Recommended discharge disposition is based on the functional assessment performed by PT/OT/Speech therapy (as applicable) and may not reflect the medical necessity determined by your provider or services covered by an individual patient's insurance plan or patient resource. Planned Therapy Interventions (PT): balance training, bed mobility training, home exercise program,gait training, neuromuscular re-education, patient/family education, postural re-education, ROM (range of motion), stair training, strengthening, stretching, transfer training Therapy Frequency (PT): daily Outcome Evaluation: Pt amb two short bouts of gait in room w/ FWW, continues to present w/ L knee buckling and gait instabilties requiring ModAx1 to correct. Continue progressing current PT POC as tolerated to address deficits in strength, balance, and functional endurance. Time Calculation: PT Evaluation Complexity History, PT Evaluation Complexity: 3 or more personal factors and/or comorbidities Examination of Body Systems (PT Eval Complexity): total of 3 or more elements Clinical Presentation (PT Evaluation Complexity): evolving Clinical Decision Making (PT Evaluation Complexity): moderate complexity Overall Complexity (PT Evaluation Complexity): moderate complexity PT Charges Row Name 07/16/257 Time Calculation Start Time 1127 -KE PT Received On 07/16/25 -KE Timed Charges 66900 - Gait Training Minutes 15 -KE 64336 - PT Therapeutic Activity Minutes 23 -KE Total Minutes Timed Charges Total Minutes 38 -KE Total Minutes 38 -KE User Kemp (r) = Recorded By, (t) = Taken By, (c) = Cosigned By Initials Name Provider Type Roxana Zavala PT Physical Therapist Therapy Charges for Today Code Description Service Date Service Provider Modifiers Qty [id number] HC-PT EVAL MOD COMPLEXITY 5 07/15/2025 Roxana Rahman PT 1 [id number] GAIT TRAINING EA 15 MIN 07/16/2025 Roxana Rahman PT GP 1 [id number] PT THERAPEUTIC ACT EA 15 MIN 07/16/2025 Roxana Rahman, PT GP 2 PT G-Codes Outcome Measure Options: AM-PAC 6 Clicks Basic Mobility (PT) AM-PAC 6 Clicks Score (PT): 17 AM-PAC 6 Clicks Score (OT): 18 PT Discharge Summary Anticipated Discharge Disposition (PT): home with /7 care, home with home health Roxana Rahman PT 07/16/2025 [1] Patient Active Problem List Diagnosis Malignant neoplasm of upper-outer quadrant of left breast in female, 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 of 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 Breast cancer metastasized to bone Encounter for care related to vascular access port Chemotherapy-induced neuropathy Brain metastases Cauda equina syndrome Falls Anemia, chronic disease Thrombocytopenia Stage 3b chronic kidney disease Moderate protein-calorie malnutrition * Case Management/Social Work - Lamar White RN - 07/16/2025 11:25 AM EDT Continued Stay Note [facility] Patient Name: Peter Parnell Today's Date: 07/16/2025 Admit Date: 2025 Plan: Home vs home w/ HH Discharge Plan Row Name 07/16/25 1122 Plan Plan Home vs home w/ HH Patient/Family in Agreement with Plan yes Plan Comments Spoke with patient at bedside to discuss therapy recommendations for home health and RW and WC. Patient agreeable to RW and WC; order in Epic and referral given to Corey with [facility]. Discussed with patient that obtaining home health in [facility] with R insurance may prove difficult and she verbalizes understanding. I am checking with [facility], [facility], [facility], [facility], [facility], and [facility] home health agencies. Case Management following. Discharge Codes No documentation. Lamar White RN * Case Management/Social Work - Rehana Marshall RN - 07/15/2025 11:10 AM EDT Images from the original note were not included. Discharge Planning Assessment [facility] Patient Name: Peter Parnell Today's Date: 07/15/2025 Admit Date: 2025 Plan: home Discharge Needs Assessment Row Name 07/15/25 1108 Living Environment People in Home spouse Current Living Arrangements home Potentially Unsafe Housing Conditions none In the past 12 months has the electric, gas, oil, or water company threatened to shut off services in your home? No Primary Care Provided by self Provides Primary Care For no one, unable/limited ability to care for self Family Caregiver if Needed spouse Quality of Family Relationships helpful;involved Able to Return to Prior Arrangements yes Resource/Environmental Concerns Resource/Environmental Concerns none Transportation Concerns none Transportation Needs In the past 12 months, has lack of transportation kept you from medical appointments or from getting medications? no In the past 12 months, has lack of transportation kept you from meetings, work, or from getting things needed for daily living? No Food Insecurity Within the past 12 months, you worried that your food would run out before you got the money to buymore. Never true Within the past 12 months, the food you bought just didn't last and you didn't have money to get more. Never true Transition Planning Patient/Family Anticipates Transition to home with family Patient/Family Anticipated Services at Transition none Transportation Anticipated family or friend will provide Discharge Needs Assessment Readmission Within the Last 30 Days no previous admission in last 30 days Equipment Currently Used at Home cane, straight Concerns to be Addressed discharge planning Do you want help finding or keeping work or a job? I do not need or want help Do you want help with school or training? For example, starting or completing job training or getting a high school diploma, GED or equivalent No Anticipated Changes Related to Illness none Equipment Needed After Discharge none Discharge Plan Row Name 07/15/25 1101 Plan Plan home Patient/Family in Agreement with Plan yes Plan Comments Pt lives in [facility] with her . She reports she has a straight cane at home and had been independent with ADLs and mobility prior to admit. She is followed by her PCP and has drug coverage. At this time her plan for discharge is to return home. CM will follow for any dc needs Final Discharge Disposition Code 01 - home or self-care Continued Care and Services - Admitted Since 2025 No active coordination exists. Selected Continued Care - Episodes Includes continued care and service providers with selected services from the active episodes listed below Oncology- External Fill Episode start date: 12/04/2024 There are no active outsourced providers for this episode. Expected Discharge Date and Time Expected Discharge Date Expected Discharge Time Jul 17, 2025 Demographic Summary Row Name 07/15/25 1108 General Information Admission Type inpatient Referral Source physician Reason for Consult discharge planning Preferred Language [place] General Information Comments PCP Loretta Landon Contact Information Permission Granted to Share Info With family/designee Contact Information Comments Noé Parnell [phone] Functional Status Row Name 07/15/25 1108 Functional Status Usual Activity Tolerance good Current Activity Tolerance good Physical Activity On average, how many days per week do you engage in moderate to strenuous exercise (like a brisk walk)? 0 days On average, how many minutes do you engage in exercise at this level? 0 min Number of minutes of exercise per week 0 Functional Status, IADL Medications independent Meal Preparation independent Housekeeping independent Laundry independent Shopping independent If for any reason you need help with day-to-day activities such as bathing, preparing meals, shopping, managing finances, etc., do you get the help you need? I get all the help I need Mental Status General Appearance WDL WDL Mental Status Summary Recent Changes in Mental Status/Cognitive Functioning no changes Employment/ Employment Status retired Current or Previous Occupation not applicable Psychosocial No documentation. Abuse/Neglect No documentation. Legal No documentation. Substance Abuse No documentation. Patient Forms No documentation. Rehana Marshall RN * Therapy Evaluation - Roxana Rahman, PT - 07/15/2025 10:33 AM EDT Images from the original note were not included. Patient Name: Peter Parnell : 1960 Today's Date: 07/15/2025 Admit Date: 2025 Visit Dx: ICD-10-CM ICD-9-CM 1. Cauda equina syndrome G83.4 344.60 2. Metastatic malignant neoplasm, unspecified site C79.9 199.1 3. Adenocarcinoma of 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 C50.912 174.9 C78.7 197.7 4. Malignant neoplasm of upper-outer quadrant of left breast in female, estrogen receptor positive C50.412 174.4 Z17.0 V86.0 Problem List[1] Past Medical History: Diagnosis Date Back problem Bone cancer Mets Breast cancer Diabetes mellitus Drug therapy 12/2013 History of radiation therapy 01/19/2022 L3-L5, sacrum History of radiation therapy 09/26/2022 Whole brain radiotherapy Hx of radiation therapy 04/2014 Kidney stone Liver carcinoma Mets Malignant neoplasm of upper-outer quadrant of left breast in female, estrogen receptor positive 08/22/2016 Neuropathy Radiation Past Surgical History: Procedure Laterality Date BREAST BIOPSY Left BREAST LUMPECTOMY Left 11/2013 CATARACT EXTRACTION Right 02/11/2024 HEAD/NECK LESION/CYST EXCISION Right 12/02/2020 Procedure: WIDE EXCISION MALIGNANT LESION OF SCALP; Surgeon: Evens Wagner MD; Location: [facility] OR; Service: General; Laterality: Right; LIVER BIOPSY 09/22/2019 OOPHORECTOMY PORTACATH PLACEMENT Right 2019 SKIN FULL THICKNESS GRAFT Right 12/02/2020 Procedure: FULL THICKNESS SKIN GRAFT, RESECTION OF TUMOR OF RIGHT NECK; Surgeon: Evens Wagner MD; Location: [facility]; Service: General; Laterality: Right; General Information Row Name 07/15/25 110 Physical Therapy Time and Intention Document Type evaluation -KE Mode of Treatment physical therapy;co-treatment -KE Row Name 07/15/25 110 General Information Patient Profile Reviewed yes -KE Prior Level of Function independent:;all household mobility;bed mobility;ADL's reports recent functional decline leading to limited community mobility; freq falls, 5 the day prior to admit; has been using hurrycane for last week; prior to last month completely ind w/ ADLs and Mob -KE Existing Precautions/Restrictions fall;spinal -KE Barriers to Rehab medically complex;previous functional deficit;physical barrier -KE Row Name 07/15/25 110 Living Environment Current Living Arrangements home -KE People in Home spouse;other (see comments) spouse works and is not home during the day -KE Row Name 07/15/25 1106 Home Main Entrance Number of Stairs, Main Entrance four -KE Stair Railings, Main Entrance railing on right side (ascending) - Row Name 07/15/25 1106 Stairs Within Home, Primary Number of Stairs, Within Home, Primary none -KE Row Name 07/15/25 1106 Cognition Orientation Status (Cognition) oriented x 3 -KE Row Name 07/15/25 1106 Safety Issues/Impairments Affecting Functional Mobility Safety Issues Affecting Function (Mobility) awareness of need for assistance;safety precautions follow-through/compliance;safety precaution awareness;insight into deficits/self-awareness;sequencing abilities -KE Impairments Affecting Function (Mobility) balance;endurance/activity tolerance;strength -KE User Kemp (r) = Recorded By, (t) = Taken By, (c) = Cosigned By Initials Name Provider Type Roxana Zavala, PT Physical Therapist Mobility Row Name 07/15/25 1110 Bed Mobility Bed Mobility supine-sit -KE Supine-Sit Bollinger (Bed Mobility) minimum assist (75% patient effort);1 person assist -KE Assistive Device (Bed Mobility) head of bed elevated;bed rails -KE Row Name 07/15/25 1110 Sit-Stand Transfer Sit-Stand Bollinger (Transfers) minimum assist (75% patient effort);2 person assist -KE Assistive Device (Sit-Stand Transfers) walker, front-wheeled -KE Comment, (Sit-Stand Transfer) VCs for improving HP; x1 from EOB -KE Row Name 07/15/25 1110 Gait/Stairs (Locomotion) Bollinger Level (Gait) minimum assist (75% patient effort);2 person assist -KE Assistive Device (Gait) walker, front-wheeled -KE Patient was able to Ambulate yes -KE Distance in Feet (Gait) 9 -KE Deviations/Abnormal Patterns (Gait) bilateral deviations;gait speed decreased;stride length decreased;ataxic;base of support, narrow -KE Bilateral Gait Deviations forward flexed posture;heel strike decreased -KE Left Sided Gait Deviations knee buckling, left side;weight shift ability decreased -KE Number of Steps (Stairs) 1 small ~2 inch step to stand on scale -KE Comment, (Gait/Stairs) Pt demo step to gait pattern with decr weight shifting to L LE, limited heelstrike, slowed pace, and very fwd flexed posture. Pt demo intermittent L knee instability w/ mild buckling noted. Further mobility limited by fatigue. -KE User Kemp (r) = Recorded By, (t) = Taken By, (c) = Cosigned By Initials Name Provider Type Roxana Zavala PT Physical Therapist Obj/Interventions Row Name 07/15/25 1136 Range of Motion Comprehensive General Range of Motion bilateral lower extremity ROM WFL -KE Row Name 07/15/25 1136 Strength Comprehensive (MMT) General Manual Muscle Testing (MMT) Assessment lower extremity strength deficits identified -KE Comment, General Manual Muscle Testing (MMT) Assessment L LE grossly 3-/5; R LE grossly 4/5 -KE Row Name 07/15/25 1136 Balance Balance Assessment sitting static balance;sitting dynamic balance;standing static balance;standing dynamic balance -KE Static Sitting Balance standby assist -KE Dynamic Sitting Balance contact guard -KE Position, Sitting Balance sitting edge of bed -KE Static Standing Balance minimal assist;1-person assist -KE Dynamic Standing Balance minimal assist;2-person assist -KE Position/Device Used, Standing Balance supported;walker, front-wheeled -KE Balance Interventions sitting;standing;sit to stand;supported;static;dynamic -KE Comment, Balance mild posterior lean -KE Row Name 07/15/25 1136 Sensory Assessment (Somatosensory) Sensory Assessment (Somatosensory) LE sensation intact -KE User Kemp (r) = Recorded By, (t) = Taken By, (c) = Cosigned By Initials Name Provider Type Roxana Zavala PT Physical Therapist Goals/Plan Row Name 07/15/25 1142 Bed Mobility Goal 1 (PT) Activity/Assistive Device (Bed Mobility Goal 1, PT) sit to supine/supine to sit -KE Bollinger Level/Cues Needed (Bed Mobility Goal 1, PT) standby assist -KE Time Frame (Bed Mobility Goal 1, PT) short term goal (STG);5 days -KE Progress/Outcomes (Bed Mobility Goal 1, PT) new goal -KE Row Name 07/15/25 1142 Transfer Goal 1 (PT) Activity/Assistive Device (Transfer Goal 1, PT) cmq-pq-leogo/dicva-uf-jrs;zif-wq-mynkl/yhucy-nh-rom-KE Bollinger Level/Cues Needed (Transfer Goal 1, PT) contact guard required -KE Time Frame (Transfer Goal 1, PT) retirement goal (LTG);10 days -KE Progress/Outcome (Transfer Goal 1, PT) new goal -KE Row Name 07/15/25 1142 Gait Training Goal 1 (PT) Activity/Assistive Device (Gait Training Goal 1, PT) gait (walking locomotion);assistive device use;improve balance and speed;walker, rolling -KE Bollinger Level (Gait Training Goal 1, PT) contact guard required -KE Distance (Gait Training Goal 1, PT) 100 -KE Time Frame (Gait Training Goal 1, PT) intermodal dispatcher goal (LTG);10 days -KE Progress/Outcome (Gait Training Goal 1, PT) new goal -KE Row Name 07/15/25 1142 Therapy Assessment/Plan (PT) Planned Therapy Interventions (PT) balance training;bed mobility training;home exercise program;gait training;neuromuscular re-education;patient/family education;postural re-education;ROM (range of motion);stair training;strengthening;stretching;transfer training -KE User Kemp (r) = Recorded By, (t) = Taken By, (c) = Cosigned By Initials Name Provider Type Roxana Zavala, PT Physical Therapist Clinical Impression Row Name 07/15/25 1138 Pain Additional Documentation Pain Scale: FACES Pre/Post-Treatment (Group) -KE Row Name 07/15/25 1138 Pain Scale: FACES Pre/Post-Treatment Pain: FACES Scale, Pretreatment 0-->no hurt -KE Posttreatment Pain Rating 0-->no hurt -KE Row Name 07/15/25 1135 Plan of Care Review Plan of Care Reviewed With patient -KE Outcome Evaluation PT eval complete. Pt presents below baseline with generalized weakness, gait abnormalities, balance deficits, and decreased functional endurance warranting IPPT. Pt assisted in amb9 ft w/ FWW MiNAx2. Anticipate need for 24/7 care if pt is to d/c home w/ HHPT, however will continue to monitor progress and family ability to provide. If pt is to d/c home will req wheelchair and FWW. -KE Row Name 07/15/25 1137 Therapy Assessment/Plan (PT) Patient/Family Therapy Goals Statement (PT) to go home -KE Rehab Potential (PT) limited -KE Criteria for Skilled Interventions Met (PT) yes;meets criteria;skilled treatment is necessary -KE Therapy Frequency (PT) daily -KE Predicted Duration of Therapy Intervention (PT) 10 days -KE Row Name 07/15/25 1139 Vital Signs O2 Delivery Pre Treatment room air -KE O2 Delivery Intra Treatment room air -KE O2 Delivery Post Treatment room air -KE Pre Patient Position Supine -KE Intra Patient Position Standing -KE Post Patient Position Sitting -KE Row Name 07/15/25 1138 Positioning and Restraints Pre-Treatment Position in bed -KE Post Treatment Position chair -KE In Chair notified nsg;reclined;waffle cushion;call light within reach;encouraged to call for assist;exit alarm on;legs elevated -KE User Kemp (r) = Recorded By, (t) = Taken By, (c) = Cosigned By Initials Name Provider Type Roxana Zavala, PT Physical Therapist Outcome Measures Row Name 07/15/25 1143 07/15/25 0820 How much help from another person do you currently need... Turning from your back to your side while in flat bed without using bedrails? 4 -KE 3 -EA Moving from lying on back to sitting on the side of a flat bed without bedrails? 3 -KE 3 -EA Moving to and from a bed to a chair (including a wheelchair)? 3 -KE 2 -EA Standing up from a chair using your arms (e.g., wheelchair, bedside chair)? 3 - KE 3 -EA Climbing 3-5 steps with a railing? 2 -KE 2 -EA To walk in hospital room? 2 -KE 2 -EA AM-PAC 6 Clicks Score (PT) 17 -KE 15 -EA Highest Level of Mobility Goal Stand (1 or More Minutes)-5 -KE Move to Chair/Commode-4 -EA Row Name 07/15/25 0325 How much help from another person do you currently need... Turning from your back to your side while in flat bed without using bedrails? 3 -SM Moving from lying on back to sitting on the side of a flat bed without bedrails? 3 -SM Moving to and from a bed to a chair (including a wheelchair)? 2 -SM Standing up from a chair using your arms (e.g., wheelchair, bedside chair)? 3 -SM Climbing 3-5 steps with a railing? 2 -SM To walk in hospital room? 2 -SM AM-PAC 6 Clicks Score (PT) 15 -SM Highest Level of Mobility Goal Move to Chair/Commode-4 -SM Row Name 07/15/25 1143 Functional Assessment Outcome Measure Options AM-PAC 6 Clicks Basic Mobility (PT) - User Kemp (r) = Recorded By, (t) = Taken By, (c) = Cosigned By Initials Name Provider Type Darshana Major, RN Registered Nurse Roxana Zavala, PT Physical Therapist Eloisa Delatorre RN Registered Nurse Physical Therapy Education Title: PT OT COMMAND AND CONTROL OFFICER Therapies (In Progress) Topic: Physical Therapy (In Progress) Point: Mobility training (Done) Learning Progress Summary Patient Acceptance, E, VU by COLLIN at 07/15/2025 1143 Point: Home exercise program (Not Started) Learner Progress: Not documented in this visit. Point: Body mechanics (Done) Learning Progress Summary Patient Acceptance, E, VU by COLLIN at 07/15/2025 1143 Point: Precautions (Done) Learning Progress Summary Patient Acceptance, E, VU by COLLIN at 07/15/2025 1143 User Kemp Initials Effective Dates Name Provider Type Discipline 08/15/23 - Roxana Rahman, PT Physical Therapist PT PT Recommendation and Plan Recommended discharge disposition is based on the functional assessment performed by PT/OT/Speech therapy (as applicable) and may not reflect the medical necessity determined by your provider or services covered by an individual patient's insurance plan or patient resource. Planned Therapy Interventions (PT): balance training, bed mobility training, home exercise program,gait training, neuromuscular re-education, patient/family education, postural re-education, ROM (range of motion), stair training, strengthening, stretching, transfer training Therapy Frequency (PT): daily Outcome Evaluation: PT eval complete. Pt presents below baseline with generalized weakness, gait abnormalities, balance deficits, and decreased functional endurance warranting IPPT. Pt assisted in amb 9 ft w/ FWW MiNAx2. Anticipate need for 24/7 care if pt is to d/c home w/ HHPT, however will contin ue to monitor progress and family ability to provide. If pt is to d/c home will req wheelchair and FWW. Time Calculation: PT Evaluation Complexity History, PT Evaluation Complexity: 3 or more personal factors and/or comorbidities Examination of Body Systems (PT Eval Complexity): total of 3 or more elements Clinical Presentation (PT Evaluation Complexity): evolving Clinical Decision Making (PT Evaluation Complexity): moderate complexity Overall Complexity (PT Evaluation Complexity): moderate complexity PT Charges Row Name 07/15/25 1144 Time Calculation Start Time 1033 -KE PT Received On 07/15/25 -KE PT Goal Re-Cert Due Date 07/25/25 -KE Untimed Charges PT Eval/Re-eval Minutes 65 -KE Total Minutes Untimed Charges Total Minutes 65 -KE Total Minutes 65 -KE User Kemp (r) = Recorded By, (t) = Taken By, (c) = Cosigned By Initials Name Provider Type Roxana Zavala, PT Physical Therapist Therapy Charges for Today Code Description Service Date Service Provider Modifiers Qty [id number] HC-PT EVAL MOD COMPLEXITY 5 07/15/2025 Roxana Rahman, PT 1 PT G-Codes Outcome Measure Options: AM-PAC 6 Clicks Basic Mobility (PT) AM-PAC 6 Clicks Score (PT): 17 PT Discharge Summary Anticipated Discharge Disposition (PT): home with 22/04 care, home with home health Roxana Rahman, PT 07/15/2025 [1] Patient Active Problem List Diagnosis Malignant neoplasm of upper-outer quadrant of left breast in female, 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 Patient Name: Peter Parnell : 1960 Today's Date: 07/15/2025 Admit Date: 2025 Visit Dx: ICD-10-CM ICD-9-CM 1. Cauda equina syndrome G83.4 344.60 2. Metastatic malignant neoplasm, unspecified site C79.9 199.1 3. Adenocarcinoma of 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 C50.912 174.9 C78.7 197.7 4. Malignant neoplasm of upper-outer quadrant of left breast in female, estrogen receptor positive C50.412 174.4 Z17.0 V86.0 Problem List[1] Past Medical History: Diagnosis Date Back problem Bone cancer Mets Breast cancer Diabetes mellitus Drug therapy 12/2013 History of radiation therapy 01/19/2022 L3-L5, sacrum History of radiation therapy 09/26/2022 Whole brain radiotherapy Hx of radiation therapy 04/2014 Kidney stone Liver carcinoma Mets Malignant neoplasm of upper-outer quadrant of left breast in female, estrogen receptor positive 08/22/2016 Neuropathy Radiation Past Surgical History: Procedure Laterality Date BREAST BIOPSY Left BREAST LUMPECTOMY Left 11/2013 CATARACT EXTRACTION Right 02/11/2024 HEAD/NECK LESION/CYST EXCISION Right 12/02/2020 Procedure: WIDE EXCISION MALIGNANT LESION OF SCALP; Surgeon: Evens Wagner MD; Location: [facility]; Service: General; Laterality: Right; LIVER BIOPSY 09/22/2019 OOPHORECTOMY PORTACATH PLACEMENT Right 2019 SKIN FULL THICKNESS GRAFT Right 12/02/2020 Procedure: FULL THICKNESS SKIN GRAFT, RESECTION OF TUMOR OF RIGHT NECK; Surgeon: Evens Wagner MD; Location: [facility]; Service: General; Laterality: Right; General Information Row Name 07/15/25 1128 OT Time and Intention Subjective Information no complaints -TB Document Type evaluation -TB Mode of Treatment occupational therapy;co-treatment -TB Patient Effort good -TB Symptoms Noted During/After Treatment none -TB Row Name 07/15/25 1128 General Information Patient Profile Reviewed yes -TB Prior Level of Function independent:;all household mobility;transfer;bed mobility;ADL's Pt reports sudden decline leading to limited community mobility and recurrent falls x8 the 2 days prior to admit. Pt has been using hurrycane for last week. Prior to last month completely ind w/ ADLs and Mobility -TB Existing Precautions/Restrictions fall;spinal;other (see comments) Metastatic Breast Cancer with brain and spinal lesions -TB Barriers to Rehab medically complex;previous functional deficit;physical barrier -TB Row Name 07/15/25 1128 Occupational Profile Reason for Services/Referral (Occupational Profile) Occupational decline -TB Environmental Supports and Barriers (Occupational Profile) Hurrycane, walk-in shower with built-in seat and grab bars, comfort ht commodes. Pt is retired. Home alone days as spouse works M-F out of town -TB Row Name 07/15/25 1128 Living Environment Current Living Arrangements home -TB People in Home spouse -TB Row Name 07/15/25 1128 Home Main Entrance Number of Stairs, Main Entrance four -TB Stair Railings, Main Entrance railings safe and in good condition - Row Name 07/15/25 1128 Stairs Within Home, Primary Number of Stairs, Within Home, Primary none -TB Row Name 07/15/25 1128 Cognition Orientation Status (Cognition) oriented x 3 -TB Row Name 07/15/25 1128 Safety Issues/Impairments Affecting Functional Mobility Safety Issues Affecting Function (Mobility) awareness of need for assistance;insight into deficits/self-awareness;positioning of assistive device;safety precaution awareness;safety precautions follow- through/compliance;sequencing abilities -TB Impairments Affecting Function (Mobility) balance;endurance/activity tolerance;strength;grasp -TB User Kemp (r) = Recorded By, (t) = Taken By, (c) = Cosigned By Initials Name Provider Type Lenka Payne OT Occupational Therapist Mobility/ADL's Row Name 07/15/25 1132 Bed Mobility Bed Mobility supine-sit;scooting/bridging -TB Scooting/Bridging Bollinger (Bed Mobility) standby assist;verbal cues -TB Supine-Sit Bollinger (Bed Mobility) minimum assist (75% patient effort);1 person assist;verbal cues -TB Bed Mobility, Safety Issues impaired trunk control for bed mobility;decreased use of arms for pushing/pulling - Assistive Device (Bed Mobility) head of bed elevated;bed rails -TB Comment, (Bed Mobility) Assist to support trunk with transition to EOB sitting - Row Name 07/15/25 1132 Transfers Transfers sit-stand transfer;stand-sit transfer -TB Comment, (Transfers) Education and cues for hand placement, sequencing, and safety - Row Name 07/15/25 1132 Sit-Stand Transfer Sit-Stand Bollinger (Transfers) minimum assist (75% patient effort);2 person assist;verbal cues -TB Assistive Device (Sit-Stand Transfers) walker, front-wheeled -TB Row Name 07/15/25 1132 Stand-Sit Transfer Stand-Sit Bollinger (Transfers) minimum assist (75% patient effort);2 person assist;verbal cues -TB Assistive Device (Stand-Sit Transfers) walker, front-wheeled - Row Name 07/15/25 1132 Functional Mobility Functional Mobility- Ind. Level minimum assist (75% patient effort);2 person assist required;verbalcues required -TB Functional Mobility- Device walker, front-wheeled -TB Functional Mobility- Safety Issues step length decreased;weight-shifting ability decreased;sequencing ability decreased;balance decreased during turns -TB Functional Mobility- Comment Pt is up in room with good effort. Limited by L side weakness LLE>LUE. Able to use RW without knee buckling or LOB. Requires cues and assist for RW sequencing and safety. -TB Patient was able to Ambulate yes -TB Row Name 07/15/25 1132 Activities of Daily Living BADL Assessment/Intervention upper body dressing;feeding -TB Row Name 07/15/25 1132 Upper Body Dressing Assessment/Training Bollinger Level (Upper Body Dressing) don;cristiana/kaycee;set up -TB Assistive Devices (Upper Body Dressing) other (see comments) Button/zipper aide -TB Position (Upper Body Dressing) edge of bed sitting -TB Comment, (Upper Body Dressing) AE issued and teaching initiated for ADL retraining - Row Name 07/15/25 1132 Self-Feeding Assessment/Training Bollinger Level (Feeding) set up;scoop food and bring to mouth -TB Assistive Devices (Feeding) built-up handle utensils -TB Position (Feeding) supported sitting -TB Comment, (Feeding) AE issued and pt demonstrates use to promote self-feeding. - User Kemp (r) = Recorded By, (t) = Taken By, (c) = Cosigned By Initials Name Provider Type TB Lenka Payne OT Occupational Therapist Obj/Interventions Row Name 07/15/25 1137 Sensory Assessment (Somatosensory) Sensory Assessment (Somatosensory) UE sensation intact -TB Row Name 07/15/25 1137 Range of Motion Comprehensive General Range of Motion bilateral upper extremity ROM WFL -TB Comment, General Range of Motion BUE AROM is WFL for self-care -TB Row Name 07/15/25 113 Strength Comprehensive (MMT) Comment, General Manual Muscle Testing (MMT) Assessment Generalized weakness with L side UE/LE weaker than R side. 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 -TB Row Name 07/15/25 1137 Hand (Therapeutic Exercise) Hand (Therapeutic Exercise) strengthening exercise -TB Hand Strengthening (Therapeutic Exercise) bilateral;coal wheeler strengthening;thumb pinch strengthening;squeeze ball/egg;red;other (see comments) Red for L hand, Blue for R hand -TB Row Name 07/15/25 1137 Motor Skills Therapeutic Exercise hand Foam Block HEP issued and teaching initiated to support self-care. -TB Row Name 07/15/25 1137 Balance Balance Assessment sitting dynamic balance;sit to stand dynamic balance;standing dynamic balance -TB Dynamic Sitting Balance contact guard -TB Position, Sitting Balance sitting edge of bed -TB Sit to Stand Dynamic Balance minimal assist;2-person assist;verbal cues -TB Dynamic Standing Balance minimal assist;2-person assist;verbal cues -TB Position/Device Used, Standing Balance supported;walker, front-wheeled -TB Balance Interventions sitting;standing;sit to stand;supported;dynamic;dynamic reaching;occupation based/functional task -TB Comment, Balance No knee buckling or LOB when up with RW support -TB User Kemp (r) = Recorded By, (t) = Taken By, (c) = Cosigned By Initials Name Provider Type TB Lenka Payne, OT Occupational Therapist Goals/Plan Row Name 07/15/25 1148 Transfer Goal 1 (OT) Activity/Assistive Device (Transfer Goal 1, OT) qfh-yc-covyd/gpcwr-em-man;toilet;commode, bedside without drop arms -TB Bollinger Level/Cues Needed (Transfer Goal 1, OT) minimum assist (75% or more patient effort);verbal cues required -TB Time Frame (Transfer Goal 1, OT) intermodal dispatcher goal (LTG);1 week -TB Strategies/Barriers (Transfers Goal 1, OT) Progress to BR for transfers as able to support HH distances -TB Progress/Outcome (Transfer Goal 1, OT) goal ongoing -TB Row Name 07/15/25 1148 Self-Feeding Goal 1 (OT) Activity/Device (Self-Feeding Goal 1, OT) built-up handle utensils -TB Bollinger Level/Cues Needed (Self-Feeding Goal 1, OT) modified independence -TB Time Frame (Self-Feeding Goal 1, OT) short term goal (STG);3 days -TB Progress/Outcomes (Self-Feeding Goal 1, OT) goal ongoing -TB Row Name 07/15/25 1148 Strength Goal 1 (OT) Strength Goal 1 (OT) Pt demonstrates Bollinger with Foam Block HEP to support self-care. -TB Time Frame (Strength Goal 1, OT) retirement goal (LTG);1 week -TB Progress/Outcome (Strength Goal 1, OT) goal ongoing -TB User Kemp (r) = Recorded By, (t) = Taken By, (c) = Cosigned By Initials Name Provider Type TB Lenka Payne, OT Occupational Therapist Clinical Impression Row Name 07/15/25 1141 Pain Assessment Additional Documentation Pain Scale: FACES Pre/Post-Treatment (Group) -TB Row Name 07/15/25 1141 Pain Scale: FACES Pre/Post-Treatment Pain: FACES Scale, Pretreatment 0-->no hurt -TB Posttreatment Pain Rating 0-->no hurt -TB Pre/Posttreatment Pain Comment No indication of pain with EOB/OOB activity -TB Row Name 07/15/25 1141 Plan of Care Review Plan of Care Reviewed With patient -TB Progress -- IE -TB Outcome Evaluation OT IE completed. Pt is A/Ox3 and motivated to work with therapy. Presents below her baseline with acute weakness L>R side UE and LE. Pt is up in room with good effort. Able stand and ambulate in room with RW support without L knee buckling or overt LOB. Pt requires cues and assist for RW sequencing and safety. OT issued Foam Block HEP and adapted utensils and button/zip aideto support self-feeding/self-care. OT will follow IP to support safe transition to home. Recommend home with 22/04 assist at d/c and HH OT to determine home safety and modification needs if possible. -TB Row Name 07/15/25 1141 Therapy Assessment/Plan (OT) Rehab Potential (OT) good -TB Criteria for Skilled Therapeutic Interventions Met (OT) yes;meets criteria;skilled treatment is necessary -TB Therapy Frequency (OT) daily -TB Row Name 07/15/25 1141 Therapy Plan Review/Discharge Plan (OT) Anticipated Discharge Disposition (OT) home with 7 care;home with home health -TB Row Name 07/15/25 1141 Vital Signs Pre Systolic BP Rehab 123 RN cleared OT -TB Pre Treatment Diastolic BP 69 -TB O2 Delivery Pre Treatment room air -TB Pre Patient Position Supine -TB Intra Patient Position Standing -TB Post Patient Position Sitting -TB Row Name 07/15/25 1141 Positioning and Restraints Pre-Treatment Position in bed -TB Post Treatment Position chair -TB In Chair notified nsg;reclined;call light within reach;encouraged to call for assist;exit alarm on;waffle cushion;legs elevated -TB User Kemp (r) = Recorded By, (t) = Taken By, (c) = Cosigned By Initials Name Provider Type TB Lenka Payne, OT Occupational Therapist Outcome Measures Row Name 07/15/25 1150 How much help from another is currently needed... Putting on and taking off regular lower body clothing? 3 -TB Bathing (including washing, rinsing, and drying) 3 -TB Toileting (which includes using toilet bed todd or urinal) 3 -TB Putting on and taking off regular upper body clothing 3 -TB Taking care of personal grooming (such as brushing teeth) 3 -TB Eating meals 3 -TB AM-PAC 6 Clicks Score (OT) 18 -TB Row Name 07/15/25 1143 07/15/25 0820 How much help from another person do you currently need... Turning from your back to your side while in flat bed without using bedrails? 4 -KE 3 -EA Moving from lying on back to sitting on the side of a flat bed without bedrails? 3 -KE 3 -EA Moving to and from a bed to a chair (including a wheelchair)? 3 -KE 2 -EA Standing up from a chair using your arms (e.g., wheelchair, bedside chair)? 3 - KE 3 -EA Climbing 3-5 steps with a railing? 2 -KE 2 -EA To walk in hospital room? 2 -KE 2 -EA AM-PAC 6 Clicks Score (PT) 17 -KE 15 -EA Highest Level of Mobility Goal Stand (1 or More Minutes)-5 -KE Move to Chair/Commode-4 -EA Row Name 07/15/25 0325 How much help from another person do you currently need... Turning from your back to your side while in flat bed without using bedrails? 3 -SM Moving from lying on back to sitting on the side of a flat bed without bedrails? 3 -SM Moving to and from a bed to a chair (including a wheelchair)? 2 -SM Standing up from a chair using your arms (e.g., wheelchair, bedside chair)? 3 -SM Climbing 3-5 steps with a railing? 2 -SM To walk in hospital room? 2 -SM AM-PAC 6 Clicks Score (PT) 15 -SM Highest Level of Mobility Goal Move to Chair/Commode-4 -SM Row Name 07/15/25 1150 07/15/25 1143 Functional Assessment Outcome Measure Options AM-PAC 6 Clicks Daily Activity (OT) - AM-PAC 6 Clicks Basic Mobility (PT)- User Kemp (r) = Recorded By, (t) = Taken By, (c) = Cosigned By Initials Name Provider Type Lenka Payne, OT Occupational Therapist Darshana Major, RN Registered Nurse Roxana Zavala, PT Physical Therapist Eloisa Delatorre, DERRICK Registered Nurse Occupational Therapy Education Title: PT OT COMMAND AND CONTROL OFFICER Therapies (In Progress) Topic: Occupational Therapy (In Progress) Point: ADL training (Done) Learning Progress Summary Patient Acceptance, E,D, VU,DU,NR by at 07/15/2025 1150 Point: Home exercise program (Done) Learning Progress Summary Patient Acceptance, E,D, VU,DU,NR by at 07/15/2025 1150 Point: Precautions (Done) Learning Progress Summary Patient Acceptance, E,D, VU,DU,NR by at 07/15/2025 1150 User Kemp Initials Effective Dates Name Provider Type Discipline 04/09/23 - Lenka Payne OT Occupational Therapist OT OT Recommendation and Plan Recommended discharge disposition is based on the functional assessment performed by PT/OT/Speech therapy (as applicable) and may not reflect the medical necessity determined by your provider or services covered by an individual patient's insurance plan or patient resource. Therapy Frequency (OT): daily Plan of Care Review Plan of Care Reviewed With: patient Progress: (IE) Outcome Evaluation: OT IE completed. Pt is A/Ox3 and motivated to work with therapy. Presents belowher baseline with acute weakness L>R side UE and LE. Pt is up in room with good effort. Able stand and ambulate in room with RW support without L knee buckling or overt LOB. Pt requires cues and assist for RW sequencing and safety. OT issued Foam Block HEP and adapted utensils and button/zip aide to support self-feeding/self-care. OT will follow IP to support safe transition to home. Recommendhome with 22/04 assist at d/c and OT to determine home safety and modification needs if possible. Time Calculation: Evaluation Complexity (OT) Review Occupational Profile/Medical/Therapy History Complexity: expanded/moderate complexity Assessment, Occupational Performance/Identification of Deficit Complexity: 3-5 performance deficits Clinical Decision Making Complexity (OT): detailed assessment/moderate complexity Overall Complexity of Evaluation (OT): moderate complexity Time Calculation- OT Row Name 07/15/25 1152 Time Calculation- OT OT Start Time 1028 -TB OT Received On 07/15/25 -TB OT Goal Re-Cert Due Date 07/25/25 -TB Timed Charges 07608 - OT Therapeutic Exercise Minutes 12 -TB 71566 - OT Self Care/Mgmt Minutes 18 -TB Untimed Charges OT Eval/Re-eval Minutes 40 -TB Total Minutes Timed Charges Total Minutes 30 -TB Untimed Charges Total Minutes 40 -TB Total Minutes 70 -TB User Kemp (r) = Recorded By, (t) = Taken By, (c) = Cosigned By Initials Name Provider Type TB Lenka Payne OT Occupational Therapist Therapy Charges for Today Code Description Service Date Service Provider Modifiers Qty 78974270029 HC OT THER PROC EA 15 MIN 07/15/2025 Lenka Payne OT GO 1 42979649325 HC OT SELF CARE/MGMT/TRAIN EA 15 MIN 07/15/2025 Lenka Payne OT GO 1 [id number] HC OT EVAL MOD COMPLEXITY 3 07/15/2025 Lenka Payne OT GO 1 Lenka Payne OT 07/15/2025 [1] Patient Active Problem List Diagnosis Malignant neoplasm of upper-outer quadrant of left breast in female, 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 of 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 Breast cancer metastasized to bone Encounter for care related to vascular access port Chemotherapy-induced neuropathy Brain metastases Cauda equina syndrome Falls Anemia, chronic disease Thrombocytopenia Stage 3b chronic kidney disease documented in this encounter Plan of Treatment Upcoming Encounters Date Type Department Care Team (Late st Contact Info) Description 08/18/2025 8:45 AM EST Appointment [facility] [address] [place] [address] 08/18/2025 9:15 AM EST Office Visit [facility] [address] [address] Valentina Sadler MD [address] [address] 08/18/2025 9:30 AM EST Appointment [facility] [address] [place] [address] 09/13/2025 1:00 PM EST Clinical Support [facility] [address] [place] [id number] Lita Luis APRN [address] [place] [address] Scheduled Orders Name Type Priority Associated Diagnoses Orde r Schedule CBC and Differential Lab Panel Routine Adenocarcinoma of 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, estrogen receptor positive Expected: 08/18/2025, Expires: 08/18/2026 Comprehensive metabolic panel Lab Routine Adenocarcinoma of 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 Author [facility] General Goal General No Leighann Lam, PharmD Note: Clinical goal/therapeutic target: disease control, per the recent oncology clinic notes and labs. documented as of this encounter Procedures Procedure Name Priority Date/Time Associated Diagnosis Comments POCT GLUCOSE FINGERSTICK Routine 07/27/2025 11:38 AM EDT POCT GLUCOSE FINGERSTICK Routine 07/27/2025 7:24 AM EDT POCT GLUCOSE FINGERSTICK Routine 07/26/2025 7:48 PM EDT POCT GLUCOSE FINGERSTICK Routine 07/26/2025 4:04 PM EDT POCT GLUCOSE FINGERSTICK Routine 07/26/2025 11:05 AM EDT POCT GLUCOSE FINGERSTICK Routine 07/26/2025 7:28 AM EDT POCT GLUCOSE FINGERSTICK Routine 07/25/2025 7:59 PM EDT POCT GLUCOSE FINGERSTICK Routine 07/25/2025 4:45 PM EDT POCT GLUCOSE FINGERSTICK Routine 07/25/2025 11:22 AM EDT POCT GLUCOSE FINGERSTICK Routine 07/25/2025 7:47 AM EDT POCT GLUCOSE FINGERSTICK Routine 07/24/2025 7:55 PM EDT POCT GLUCOSE FINGERSTICK Routine 07/24/2025 7:52 PM EDT POCT GLUCOSE FINGERSTICK Routine 07/24/2025 4:00 PM EDT LIMITED 2D ECHO W/ CONTRAST Routine 07/24/2025 3:40 PM EDT POCT GLUCOSE FINGERSTICK Routine 07/24/2025 11:48 AM EDT POCT GLUCOSE FINGERSTICK Routine 07/24/2025 8:43 AM EDT POCT GLUCOSE FINGERSTICK Routine 07/23/2025 8:44 PM EDT POCT GLUCOSE FINGERSTICK Routine 07/23/2025 4:23 PM EDT POCT GLUCOSE FINGERSTICK Routine 07/23/2025 11:23 AM EDT POCT GLUCOSE FINGERSTICK Routine 07/23/2025 7:37 AM EDT MRI ABDOMEN W WO CONTRAST Routine 07/23/2025 12:53 AM EDT POCT GLUCOSE FINGERSTICK Routine 07/22/2025 7:57 PM EDT POCT GLUCOSE FINGERSTICK Routine 07/22/2025 11:52 AM EDT POCT GLUCOSE FINGERSTICK Routine 07/22/2025 11:51 AM EDT BASIC METABOLIC PANEL Routine 07/22/2025 7:43 AM EDT POTASSIUM Timed 07/21/2025 2:10 AM EDT XR ABDOMEN KUB STAT 07/20/2025 11:51 PM EDT POCT GLUCOSE FINGERSTICK Routine 07/20/2025 4:04 PM EDT COMPREHENSIVE METABOLIC PANEL Routine 07/20/2025 12:22 PM EDT POCT GLUCOSE FINGERSTICK Routine 07/20/2025 12:08 PM EDT POCT GLUCOSE FINGERSTICK Routine 07/20/2025 7:36 AM EDT POCT GLUCOSE FINGERSTICK Routine 07/20/2025 12:32 AM EDT POCT GLUCOSE FINGERSTICK Routine 07/19/2025 8:33 PM EDT POCT GLUCOSE FINGERSTICK Routine 07/19/2025 4:13 PM EDT POCT GLUCOSE FINGERSTICK Routine 07/19/2025 12:01 PM EDT POCT GLUCOSE FINGERSTICK Routine 07/19/2025 7:25 AM EDT CBC WITH AUTO DIFFERENTIAL Routine 07/19/2025 6:34 AM EDT CBC AND DIFFERENTIAL Routine 07/19/2025 6:34 AM EDT COMPREHENSIVE METABOLIC PANEL Routine 07/19/2025 6:34 AM EDT POCT GLUCOSE FINGERSTICK Routine 07/19/2025 12:31 AM EDT POCT GLUCOSE FINGERSTICK Routine 07/18/2025 8:14 PM EDT POCT GLUCOSE FINGERSTICK Routine 07/18/2025 8:[address] ABDOMEN PELVIS WO CONTRAST Routine 07/18/2025 6:47 PM EDT POCT GLUCOSE FINGERSTICK Routine 07/18/2025 4:31 PM EDT POCT GLUCOSE FINGERSTICK Routine 07/18/2025 7:23 AM EDT CBC WITH AUTO DIFFERENTIAL Routine 07/18/2025 6:08 AM EDT CBC AND DIFFERENTIAL Routine 07/18/2025 6:08 AM EDT COMPREHENSIVE METABOLIC PANEL Routine 07/18/2025 6:08 AM EDT POCT GLUCOSE FINGERSTICK Routine 07/17/2025 8:08 PM EDT POCT GLUCOSE FINGERSTICK Routine 07/17/2025 4:31 PM EDT XR KNEE 1 OR 2 VW LEFT Routine 12:03 PM EDT POCT GLUCOSE FINGERSTICK Routine 07/17/2025 11:39 AM EDT POCT GLUCOSE FINGERSTICK Routine 07/17/2025 7:15 AM EDT ABORH 2ND SPECIMEN VERIFICATION STAT 07/16/2025 8:19 AM EDT CBC WITH AUTO DIFFERENTIAL Routine 07/16/2025 8:19 AM EDT CBC AND DIFFERENTIAL Routine 07/16/2025 8:19 AM EDT PHOSPHORUS Routine 07/16/2025 8:19 AM EDT MAGNESIUM Routine 07/16/2025 8:19 AM EDT COMPREHENSIVE METABOLIC PANEL Routine 07/16/2025 8:19 AM EDT POCT GLUCOSE FINGERSTICK Routine 07/15/2025 7:55 PM EDT POCT GLUCOSE FINGERSTICK Routine 07/15/2025 4:21 PM EDT MRI CERVICAL SPINE W WO CONTRAST Routine 07/15/2025 1:27 PM EDT CBC WITH AUTO DIFFERENTIAL Routine 07/15/2025 9:18 AM EDT TYPE AND SCREEN Routine 07/15/2025 9:18 AM EDT PHOSPHORUS Routine 07/15/2025 9:18 AM EDT MAGNESIUM Routine 07/15/2025 9:18 AM EDT HEMOGLOBIN A1C Routine 07/15/2025 9:18 AM EDT COMPREHENSIVE METABOLIC PANEL Routine 07/15/2025 9:18 AM EDT POCT GLUCOSE FINGERSTICK Routine 07/15/2025 5:48 AM EDT XR TIBIA FIBULA 2 VW LEFT STAT 2025 11:53 PM EDT XR HIPS BILATERAL W OR WO PELVIS 5 VIEW STAT 2025 11:52 PM EDT XR FEMUR 2 VW LEFT STAT 2025 11 :52 PM EDT XR CHEST 1 VW STAT 2025 11:52 PM EDT MRI BRAIN W WO CONTRAST STAT 2025 11:16 PM EDT MRI LUMBAR SPINE W WO CONTRAST STAT 2025 11:15 PM EDT URINALYSIS, MICROSCOPIC ONLY STAT 2025 10:43 PM EDT URINALYSIS W/ MICROSCOPIC IF INDICATED (NO CULTURE) STAT 2025 10:43 PM EDT CBC WITH AUTO DIFFERENTIAL STAT 2025 10:06 PM EDT CBC AND DIFFERENTIAL STAT 2025 10:06 PM EDT COMPREHENSIVE METABOLIC PANEL STAT 2025 10:[address] LUMBAR SPINE WO CONTRAST STAT 2025 9:[address] THORACIC SPINE WO CONTRAST STAT 2025 9:[address] CERVICAL SPINE WO CONTRAST STAT 2025 9:[address] HEAD WO CONTRAST STAT 2025 9 :52 PM EDT documented in this encounter Results * (ABNORMAL) Comprehensive metabolic panel (07/28/2025 9:26 AM EDT) Glucose 274(H) 65 - 99 mg/dL 07/28/2025 10:14 AM EDT [facility] BUN 55.8(H) 8.0 - 23.0 mg/dL 07/28/2025 10:14 AM EDT [facility] Creatinine 1.34(H) 0.57 - 1.00 mg/dL 07/28/2025 10:14 AM EDT [facility] Sodium 134(L) 136 - 145 mmol/L 07/28/2025 10:14 AM EDT [facility] Potassium 4.5 3.5 - 5.2 mmol/L 07/28/2025 10:14 AM EDT [facility] Chloride 100 98 - 107 mmol/L 07/28/2025 10:14 AM EDT [facility] CO2 22.1 22.0 - 29.0 mmol/L 07/28/2025 10:14 AM EDT [facility] Calcium 8.7 8.6 - 10.5 mg/dL 07/28/2025 10:14 AM EDT [facility] Total Protein 6.2 6.0 - 8.5 g/dL 07/28/2025 10:14 AM EDT [facility] Albumin 3.4(L) 3.5 - 5.2 g/dL 07/28/2025 10:14 AM EDT [facility] ALT (SGPT) 428(H) 1 - 33 U/L 07/28/2025 10:14 AM EDT [facility] AST (SGOT) 97(H) 1 - 32 U/L 07/28/2025 10:14 AM EDT [facility] Alkaline Phosphatase 188(H) 39 - 117 U/L 07/28/2025 10:14 AM EDT [facility] Total Bilirubin 0.5 0.0 - 1.2 mg/dL 07/28/2025 10:14 AM EDT [facility] Globulin 2.8 gm/dL 07/28/2025 10:14 AM EDT [facility] Comment:Calculated Result A/G Ratio 1.2 g/dL 07/28/2025 10:14 AM EDT [facility] BUN/Creatinine Ratio 41.6(H) 7.0 - 25.0 07/28/2025 10:14 AM EDT [facility] Anion Gap 11.9 5.0 - 15.0 mmol/L 07/28/2025 10:14 AM EDT [facility] eGFR 44.4(L) >60.0 mL/min/1.7 3 07/28/2025 10:14 AM EDT [facility] Blood Port / Unknown 07/28/2025 9: 26 AM EDT 07/28/2025 9:51 AM EDT [facility] - 07/28/2025 10:14 AM EDT GFR Categories in Chronic Kidney Disease [...] does not include race as a factor us Valentina Sadler MD LAB BLOOD ORDERABLES Sherry l Result [facility]
[address] [place] [address], * (ABNORMAL) POC Glucose Once (07/27/2025 11:38 AM EDT) Glucose 187(H) 70 - 130 mg/dL 07/27/2025 11:41 AM EDT [facility] Comment:Serial Number: [id number]: [id number] Blood 07/27/2025 11:3 8 AM EDT 07/27/2025 11:41 AM EDT Yury Prieto DO POINT OF CARE TEST ORDERABLES Fi nal Result Performing Organization Address [facility] Co de Phone Number [facility]
[address] [place] [address], * (ABNORMAL) POC Glucose Once (07/27/2025 7:24 AM EDT) Glucose 216(H) 70 - 130 mg/dL 07/27/2025 7:25 AM EDT [facility] Comment:Serial Number: [id number]: [id number] Blood 07/27/2025 7:24 AM EDT 07/27/2025 7:25 AM EDT Yuryrogerio Prieto POINT OF CARE TEST ORDERABLES Fi nal Result Performing Organization Address [facility] de Phone Number [facility]
[address] [place] [address], * (ABNORMAL) POC Glucose Once (07/26/2025 7:48 PM EDT) Glucose 379(H) 70 - 130 mg/dL 07/26/2025 7:51 PM EDT [facility] Comment:Serial Number: [id number]: [id number] Blood 07/26/2025 7:48 PM EDT 07/26/2025 7:51 PM EDT Foster Patel MD POINT OF CARE TEST ORDERABLES Final Result Performing Organization Address City/[facility] Co de Phone Number [facility]
[address] [place] [address], * (ABNORMAL) POC Glucose Once (07/26/2025 4:04 PM EDT) Glucose 397(H) 70 - 130 mg/dL 07/26/2025 4:06 PM EDT [facility] Comment:Serial Number: [id number]: [id number] Blood 07/26/2025 4:04 PM EDT 07/26/2025 4:06 PM EDT Foster Patel MD POINT OF CARE TEST ORDERABLES Final Result [facility]
[address] [place] [address], * (ABNORMAL) POC Glucose Once (07/26/2025 11:05 AM EDT) Glucose 255(H) 70 - 130 mg/dL 07/26/2025 11:08 AM EDT [facility] Comment:Serial Number: [id number]: [id number] Blood 07/26/2025 11:0 5 AM EDT 07/26/2025 11:08 AM EDT us Foster Patel MD POINT OF CARE TEST ORDERABLES Final Result Performing Organization Address City/[facility]/ZIP Co de Phone Number [facility]
[address] [place] [address], * (ABNORMAL) POC Glucose Once (07/26/2025 7:28 AM EDT) Glucose 190(H) 70 - 130 mg/dL 07/26/2025 7:39 AM EDT [facility] Comment:Serial Number: [id number]: [id number] Blood 07/26/2025 7:28 AM EDT 07/26/2025 7:39 AM EDT Foster Patel MD POINT OF CARE TEST ORDERABLES Final Result Performing Organization Address City/[facility]/ZIP Co de Phone Number [facility]
[address] [place] [address], * (ABNORMAL) POC Glucose Once (07/25/2025 7:59 PM EDT) Glucose 396(H) 70 - 130 mg/dL 07/25/2025 8:02 PM EDT [facility] Comment:Serial Number: [id number]: [id number] Blood 07/25/2025 7:59 PM EDT 07/25/2025 8:02 PM EDT Foster Patel MD POINT OF CARE TEST ORDERABLES Final Result Performing Organization Address City/[facility] Co de Phone Number [facility]
[address] [place] [address], * (ABNORMAL) POC Glucose Once (07/25/2025 4:45 PM EDT) Glucose 285(H) 70 - 130 mg/dL 07/25/2025 4:47 PM EDT [facility] Comment:Serial Number: [id number]: [id number] Blood 07/25/2025 4:45 PM EDT 07/25/2025 4:47 PM EDT Foster Patel MD POINT OF CARE TEST ORDERABLES Final Result Performing Organization Address City/[facility]/ZIP Co de Phone Number [facility]
[address] [place] [address], * (ABNORMAL) POC Glucose Once (07/25/2025 11:22 AM EDT) Glucose 372(H) 70 - 130 mg/dL 07/25/2025 11:[facility] Comment:Serial Number: [id number]: [id number] Blood 07/25/2025 11:2 2 AM EDT 07/25/2025 11:24 AM EDT Foster Patel MD POINT OF CARE TEST ORDERABLES Final Result Performing Organization Address [facility]/ZIP Co de Phone Number [facility]
[address] [place] [address], * (ABNORMAL) POC Glucose Once (07/25/2025 7:47 AM EDT) Glucose 204(H) 70 - 130 mg/dL 07/25/2025 7:52 AM EDT [facility] Comment:Serial Number: [id number]: [id number] Blood 07/25/2025 7:47 AM EDT 07/25/2025 7:51 AM EDT Foster Patel MD POINT OF CARE TEST ORDERABLES Final Result Performing Organization Address [facility] Co de Phone Number [facility]
[address] [place] [address], * (ABNORMAL) POC Glucose Once (07/24/2025 7:55 PM EDT) Glucose 418(HH) 70 - 130 mg/dL 07/24/2025 7:56 PM EDT [facility] Comment:Serial Number: [id number]: [id number] Blood 07/24/2025 7:55 PM EDT 07/24/2025 7:56 PM EDT Foster Patel MD POINT OF CARE TEST ORDERABLES Final Result Performing Organization Address City/[facility] Co de Phone Number [facility]
[address] [place] [address], * (ABNORMAL) POC Glucose Once (07/24/2025 7:52 PM EDT) [facility] Glucose 425(HH) 70 - 130 mg/dL 07/24/2025 7:55 PM EDT [facility] Comment:Serial Number: [id number]: [id number] Nova Comment 1 Repeat Test 7:55 PM EDT [facility] Blood 07/24/2025 7:52 PM EDT 07/24/2025 7:55 PM EDT us Foster Patel MD POINT OF CARE TEST ORDERABLES Final Result [facility]
[address] [place] [address], * (ABNORMAL) POC Glucose Once (07/24/2025 4:00 PM EDT) [facility] Glucose 162(H) 70 - 130 mg/dL 07/24/2025 4:02 PM EDT [facility] Comment:Serial Number: [id number]: [id number] Blood 07/24/2025 4:00 PM EDT 07/24/2025 4:02 PM EDT us Foster Patel MD POINT OF CARE TEST ORDERABLES Final Result [facility]
[address] [place] [address], [place] [phone] * LIMITED 2D ECHO W/ CONTRAST (07/24/2025 3:40 PM EDT) [facility] CV VAS BP RIGHT ARM 121/52 mmHg EF(MOD-bp) 70.6 % LVIDd 4.9 cm LVIDs 3.2 cm IVSd 0.70 cm LVPWd 1.00 cm FS 34.7 % IVS/LVPW 0.70 cm ESV(cubed) 32.8 ml LV Sys Vol (BSA corrected) 9.1 cm2 EDV(cubed) 117.6 ml LV Cr Vol (BSA corrected) 37.0 cm2 LV mass(C)d 141.9 grams LVOT area 3.5 cm2 LVOT diam 2.10 cm EDV(MOD-sp2) 52.2 ml EDV(MOD-sp4) 66.6 ml ESV(MOD-sp2) 16.4 ml ESV(MOD-sp4) 16.4 ml SV(MOD-sp2) 35.8 ml SV(MOD-sp4) 50.2 ml SVi(MOD-SP2) 19.9 ml/m2 SVi(MOD-SP4) 27.9 ml/m2 EF(MOD-sp2) 68.6 % EF(MOD-sp4) 75.4 % RV Base 2.7 cm RV Mid 2.9 cm RV Length 5.8 cm LA dimension (2D) 2.6 cm Ao root diam 2.8 cm Anatomical Region Laterality Modality Ultrasound Narrative 07/24/2025 5:01 PM EDT Left ventricular systolic function is normal. Left ventricular ejection fraction appears to be 61 - 65%. EF appears unchanged compared to the echo from 07/2024 Left Ventricle Left ventricular systolic function is normal. Left ventricular ejection fraction appears to be 61 - 65%. Normal left ventricular cavity size and wall thickness noted. All left ventricular wall segments contract normally. Strain was performed but due the quality of the echo not being the best Strain number obtained may not be accurate. Pericardium There is no evidence of pericardial effusion. . Prior Study Last echo 07/2024 -19.4% strain was obtained . Study Quality The study is technically adequate for diagnosis. The quality of the study is limited due to patient positioning and Echo was done in patient chair sitting somewhat erect. Last time echo was performed patient stated laying flat makes her have a bad case of veritgo. She did not want to lay flat. . Enhancement Agent Details Verbal consent was obtained from the patient to use Lumason image enhancer in order to optimize the study. The use of Lumason was indicated to improve delineation of the left ventricular endocardial border. 5 mL of Lumason was manually activated. A total of 2 mL of the activated Lumason was administered and the remaining contrast was wasted and discarded. No adverse reaction to image enhancer was noted. Valentina Sadler MD CV ECHO ORDERABLES Final Result * (ABNORMAL) POC Glucose Once (07/24/2025 11:48 AM EDT) Glucose 263(H) 70 - 130 mg/dL 07/24/2025 11:51 AM EDT [facility] Comment:Serial Number: [id number]: [id number] Blood 07/24/2025 11:4 8 AM EDT 07/24/2025 11:51 AM EDT Foster Patel MD POINT OF CARE TEST ORDERABLES Final Result Performing Organization Address City/[facility]/ZIP Co de Phone Number [facility]
[address] [place] [address], * (ABNORMAL) POC Glucose Once (07/24/2025 8:43 AM EDT) Glucose 205(H) 70 - 130 mg/dL 07/24/2025 8:46 AM EDT [facility] Comment:Serial Number: [id number]: [id number] Blood 07/24/2025 8:43 AM EDT 07/24/2025 8:46 AM EDT Foster Patel MD POINT OF CARE TEST ORDERABLES Final Result [facility]
[address] [place] [address], * (ABNORMAL) POC Glucose Once (07/23/2025 8:44 PM EDT) Glucose 284(H) 70 - 130 mg/dL 07/23/2025 8:46 PM EDT [facility] Comment:Serial Number: [id number]: [id number] Blood 07/23/2025 8:44 PM EDT 07/23/2025 8:46 PM EDT us Foster Patel MD POINT OF CARE TEST ORDERABLES Final Result Performing Organization Address [facility]/ZIP Co de Phone Number [facility]
[address] [place] [address], * (ABNORMAL) POC Glucose Once (07/23/2025 4:23 PM EDT) Glucose 324(H) 70 - 130 mg/dL 07/23/2025 4:25 PM EDT [facility] Comment:Serial Number: [id number]: [id number] Blood 07/23/2025 4:2 3 PM EDT 07/23/2025 4:25 PM EDT us Foster Patel MD POINT OF CARE TEST ORDERABLES Final Result Performing Organization Address [facility] Co de Phone Number [facility]
[address] [place] [address], * (ABNORMAL) POC Glucose Once (07/23/2025 11:23 AM EDT) Glucose 220(H) 70 - 130 mg/dL 07/23/2025 11:27 AM EDT [facility] Comment:Serial Number: [id number]: [id number] Blood 07/23/2025 11:2 3 AM EDT 07/23/2025 11:27 AM EDT us Foster Patel MD POINT OF CARE TEST ORDERABLES Final Result Performing Organization Address City/[facility]/ZIP Co de Phone Number [facility]
[address] [place] [address], * (ABNORMAL) POC Glucose Once (07/23/2025 7:37 AM EDT) Glucose 217(H) 70 - 130 mg/dL 07/23/2025 7:40 AM EDT [facility] Comment:Serial Number: [id number]: [id number] Blood 07/23/2025 7:37 AM EDT 07/23/2025 7:40 AM EDT Foster Patel MD POINT OF CARE TEST ORDERABLES Final Result [facility]
[address] [place] [id number], * MRI Abdomen With & Without Contrast (07/23/2025 12:53 AM EDT) Anatomical Region Laterality Modality Body, Abdomen N/A Magnetic Resonan ce 07/23/2025 7:48 AM EDT Impressions 07/23/2025 8:14 AM EDT Impression: No convincing evidence of active solid organ or deuce metastatic disease in the abdomen. Scattered small liver lesions most suggestive of cysts or possibly treated disease. Findings of known osseous metastatic disease. Electronically Signed: Adryan Gibson MD 07/23/2025 8:14 AM EDT Workstation ID: [id number] Narrative 07/23/2025 8:14 AM EDT MRI ABDOMEN W WO CONTRAST Date of Exam: 07/23/2025 12:48 AM EDT Indication: elevated liver enzymes - concern for progressive breast cancer. Comparison: CT abdomen pelvis 07/18/2025. Technique: Routine multiplanar/multisequence images of the abdomen were obtained before and after the uneventful administration of Vueway. Findings: Visualized lung bases appear clear without distinct airspace consolidation. No pleural or pericardial effusion. See prior chest CT for additional findings above the diaphragm. No evidence of solid, enhancing liver lesion to suggest active hepatic metastatic disease. Small cyst in the posterior right hepatic lobe (series 5 image 9), with several additional punctate T2 hyperintense lesions also suggestive of cysts, which would correspond to findings on prior CTs. No evidence of hepatic steatosis. No morphologic changes of chronic liver disease. Gallbladder is unremarkable. Common bile duct is normal caliber for age. No evidence of choledocholithiasis. Mild prominence of the pancreatic duct at the level of the head with otherwise normal caliber duct throughout the remaining pancreas. Normal signal and enhancement the pancreatic parenchyma. No findings of acute pancreatitis. Spleen is mildly enlarged, unchanged. No distinct adrenal nodule. Kidneys are symmetric in size without hydronephrosis. Bilateral nephrolithiasis seen to better advantage on CT. Couple tiny renal cysts. No dilated bowel loops within the fkwkz-my-wdcz. No pathologically enlarged lymph nodes. No abdominal aortic aneurysm. Major vasculature appears patent. No acute body wall abnormality. Osseous metastasis involving the 12th rib and 12th vertebral body, as well as the posterior ninth rib. Metastatic osseous lesions also seen in the lower lumbar spine. Procedure Note Adryan Gibson MD - 07/23/2025 MRI ABDOMEN W WO CONTRAST Date of Exam: 07/23/2025 12:48 AM EDT Indication: elevated liver enzymes - concern for progressive breastcancer. Comparison: CT abdomen pelvis 07/18/2025. Technique: Routine multiplanar/multisequence images of the abdomen wereobtained before and after the uneventful administration of Vueway. Findings: Visualized lung bases appear clear without distinct airspaceconsolidation. No pleural or pericardial effusion. See prior chest CT foradditional findings above the diaphragm. No evidence of solid, enhancing liver lesion to suggest active hepaticmetastatic disease. Small cyst in the posterior right hepatic lobe (series5 image 9), with several additional punctate T2 hyperintense lesions alsosuggestive of cysts, which would correspond to findings on prior CTs. No evidence of hepatic steatosis. Nomorphologic changes of chronic liver disease. Gallbladder is unremarkable.Common bile duct is normal caliber for age. No evidence ofcholedocholithiasis. Mild prominence of the pancreatic duct at the level of the head withotherwise normal caliber duct throughout the remaining pancreas. Normalsignal and enhancement the pancreatic parenchyma. No findings of acutepancreatitis. Spleen is mildly enlarged, unchanged. No distinct adrenal nodule. Kidneys are symmetric in size withouthydronephrosis. Bilateral nephrolithiasis seen to better advantage on CT.Couple tiny renal cysts. No dilated bowel loops within the [id number].No pathologically enlarged lymph nodes. No abdominal aortic aneurysm. Major vasculature appears patent. No acute body wall abnormality. Osseous metastasis involving the 12th riband 12th vertebral body, as well as the posterior ninth rib. Metastaticosseous lesions also seen in the lower lumbar spine. IMPRESSION: Impression: No convincing evidence of active solid organ or deuce metastatic diseasein the abdomen. Scattered small liver lesions most suggestive of cysts or possibly treateddisease. Findings of known osseous metastatic disease. Electronically Signed: Adryan Gibson MD 07/23/2025 8:14 AM EDT Workstation ID: [id number] Valentina Sadler MD IMG MRI ORDERABLES Final Result * (ABNORMAL) POC Glucose Once (07/22/2025 7:57 PM EDT) Glucose 333(H) 70 - 130 mg/dL 07/22/2025 8:02 PM EDT [facility] Comment:Serial Number: [id number]: [id number] Blood 07/22/2025 7:57 PM EDT 07/22/2025 8:02 PM EDT Foster Patel MD POINT OF CARE TEST ORDERABLES Final Result Performing Organization Address City/State/[facility] Co de Phone Number [facility]
[address] [place] [id number], * (ABNORMAL) POC Glucose Once (07/22/2025 11:52 AM EDT) Glucose 475(HH) 70 - 130 mg/dL 07/22/2025 11:54 AM EDT [facility] Comment:Serial Number: [id number]: [id number] Nova Comment 1 Confirmed by Repeat 07/22/2025 11:54 AM EDT [facility] Blood 07/22/2025 11:5 2 AM EDT 07/22/2025 11:54 AM EDT Foster Patel MD POINT OF CARE TEST ORDERABLES Final Result Performing Organization Address City/State/[facility] Co de Phone Number [facility]
[address] [place] [id number], * (ABNORMAL) POC Glucose Once (07/22/2025 11:51 AM EDT) Glucose 497(HH) 70 - 130 mg/dL 07/22/2025 11:53 AM EDT [facility] Comment:Serial Number: [id number]: [id number] Blood 07/22/2025 11:5 1 AM EDT 07/22/2025 11:53 AM EDT Foster Patel MD POINT OF CARE TEST ORDERABLES Final Result [facility]
[address] [place] [id number], * (ABNORMAL) Basic Metabolic Panel (07/22/2025 7:43 AM EDT) Glucose 275(H) 65 - 99 mg/dL 07/22/2025 8:16 AM EDT [facility] BUN 48.3(H) 8.0 - 23.0 mg/dL 07/22/2025 8:16 AM EDT [facility] Creatinine 1.35(H) 0.57 - 1.00 mg/dL 07/22/2025 8:16 AM EDT [facility] Sodium 136 136 - 145 mmol/L 07/22/2025 8:16 AM EDT [facility] Potassium 4.8 3.5 - 5.2 mmol/L 07/22/2025 8:16 AM EDT [facility] Chloride 101 98 - 107 mmol/L 07/22/2025 8:16 AM EDT [facility] CO2 27.0 22.0 - 29.0 mmol/L 07/22/2025 8:16 AM EDT [facility] Calcium 9.1 8.6 - 10.5 mg/dL 07/22/2025 8:16 AM EDT [facility] BUN/Creatinine Ratio 35.8(H) 7.0 - 25.0 07/22/2025 8:16 AM EDT [facility] Anion Gap 8.0 5.0 - 15.0 mmol/L 07/22/2025 8:16 AM EDT [facility] eGFR 44.0(L) >60.0 mL/min/1.7 3 07/22/2025 8:16 AM EDT [facility] Blood Venipuncture / Unknown 07/22/2025 7:43 AM EDT 07/22/2025 7:50 AM EDT Narrative [facility] - 07/22/2025 8:16 AM EDT GFR Categories in Chronic Kidney Disease [...] does not include race as a factor us Foster Patel MD LAB BLOOD ORDERABLES Final Res ult [facility]
[address] [place] [id number], * (ABNORMAL) Potassium (07/21/2025 2:10 AM EDT) Potassium 5.6(H) 3.5 - 5.2 mmol/L 07/21/2025 3:08 AM EDT [facility] Blood Venipuncture / Unknown 07/21/2025 2:10 AM EDT 07/21/2025 2:50 AM EDT us Carl Shook MD LAB BLOOD ORDERABLES Final Res ult [facility]
[address] [place] [address], * XR Abdomen KUB (07/20/2025 11:51 PM EDT) Anatomical Region Laterality Modality Body, Abdomen N/A Radiographic Laura ging 07/20/2025 11:5 2 PM EDT Impressions 07/20/2025 11:53 PM EDT Impression: Previously described large stool burden appears to have resolved. Nonobstructive bowel gas pattern. Mild stool burden present. Electronically Signed: Bridgette Campuzano MD 07/20/2025 11:53 PM EDT Workstation ID: [id number] Narrative 07/20/2025 11:53 PM EDT XR ABDOMEN KUB Date of Exam: 07/20/2025 11:27 PM EDT Indication: constipation. Comparison: 07/18/2025. Findings: No gross free air or pneumatosis though evaluation is slightly limited due to technique. There is a non obstructive bowel gas pattern. A mild stool burden is present. No suspicious calcifications identified. No acute osseous abnormality identified. Procedure Note Bridgette Campuzano MD - 07/20/2025 XR ABDOMEN KUB Date of Exam: 07/20/2025 11:27 PM EDT Indication: constipation. Comparison: 07/18/2025. Findings: No gross free air or pneumatosis though evaluation is slightly limited dueto technique. There is a non obstructive bowel gas pattern. A mild stoolburden is present. No suspicious calcifications identified. No acuteosseous abnormality identified. IMPRESSION: Impression: Previously described large stool burden appears to have resolved. Nonobstructive bowel gas pattern. Mild stool burden present. Electronically Signed: Bridgette Campuzano MD 07/20/2025 11:53 PM EDT Workstation ID: [id number] Styles PA-C IMG DIAGNOSTIC IMAGI NG ORDERABLES Final Result * (ABNORMAL) POC Glucose Once (07/20/2025 4:04 PM EDT) Glucose 218(H) 70 - 130 mg/dL 07/20/2025 4:06 PM EDT [facility] Comment:Serial Number: [id number]: [id number] Blood 07/20/2025 4:04 PM EDT 07/20/2025 4:06 PM EDT Carl Shook MD POINT OF CARE TEST ORDERABLES Final Result [facility]
[address] [place] [address], * (ABNORMAL) Comprehensive Metabolic Panel (07/20/2025 12:22 PM EDT) Glucose 193(H) 65 - 99 mg/dL 07/20/2025 2:40 PM EDT [facility] BUN 44.3(H) 8.0 - 23.0 mg/dL 07/20/2025 2:40 PM EDT [facility] Creatinine 1.37(H) 0.57 - 1.00 mg/dL 07/20/2025 2:40 PM EDT [facility] Sodium 139 136 - 145 mmol/L 07/20/2025 2:40 PM EDT [facility] Potassium 3.3(L) 3.5 - 5.2 mmol/L 07/20/2025 2:40 PM EDT [facility] Chloride 104 98 - 107 mmol/L 07/20/2025 2:40 PM EDT [facility] CO2 21.2(L) 22.0 - 29.0 mmol/L 07/20/2025 2:40 PM EDT [facility] Calcium 9.6 8.6 - 10.5 mg/dL 07/20/2025 2:40 PM EDT [facility] Total Protein 7.1 6.0 - 8.5 g/dL 07/20/2025 2:40 PM EDT [facility] Albumin 3.7 3.5 - 5.2 g/dL 07/20/2025 2:40 PM EDT [facility] ALT (SGPT) 182(H) 1 - 33 U/L 07/20/2025 2:40 PM EDT [facility] AST (SGOT) 132(H) 1 - 32 U/L 07/20/2025 2:40 PM EDT [facility] Alkaline Phosphatase 198(H) 39 - 117 U/L 07/20/2025 2:40 PM EDT [facility] Total Bilirubin 0.5 0.0 - 1.2 mg/dL 07/20/2025 2:40 PM EDT [facility] Globulin 3.4 gm/dL 07/20/2025 2:40 PM T [facility] Comment:Calculated Result A/G Ratio 1.1 g/dL 07/20/2025 2:40 PM T [facility] BUN/Creatinine Ratio 32.3(H) 7.0 - 25.0 07/20/2025 2:40 PM EDT [facility] Anion Gap 13.8 5.0 - 15.0 mmol/L 07/20/2025 2:40 PM T [facility] eGFR 43.2(L) >60.0 mL/min/1.7 3 07/20/2025 2:40 PM T [facility] Blood Venipuncture / Unknown 07/20/2025 12:22 PM EDT 07/20/2025 1:59 PM EDT [facility] - 07/20/2025 2:40 PM EDT GFR Categories in Chronic Kidney [...] does not include race as a factor us Everton Lassiter MD LAB BLOOD ORDERABLES Final Resul t [facility]
[address] [place] [address], * (ABNORMAL) POC Glucose Once (07/20/2025 12:08 PM EDT) Glucose 196(H) 70 - 130 mg/dL 07/20/2025 12:10 PM EDT [facility] Comment:Serial Number: [id number]: [id number] Blood 07/20/2025 12:0 8 PM EDT 07/20/2025 12:10 PM EDT us Carl Shook MD POINT OF CARE TEST ORDERABLES Final Result Performing Organization Address [facility] Co de Phone Number [facility]
[address] [place] [address], * (ABNORMAL) POC Glucose Once (07/20/2025 7:36 AM EDT) Glucose 231(H) 70 - 130 mg/dL 07/20/2025 7:38 AM EDT [facility] Comment:Serial Number: [id number]: [id number] Blood 07/20/2025 7:36 AM EDT 07/20/2025 7:38 AM EDT us Carl Shook MD POINT OF CARE TEST ORDERABLES Final Result Performing Organization Address City/[facility]/ZIP Co de Phone Number [facility]
[address] [place] [address], * (ABNORMAL) POC Glucose Once (07/20/2025 12:32 AM EDT) Glucose 285(H) 70 - 130 mg/dL 07/20/2025 12:35 AM EDT [facility] Comment:Serial Number: [id number]: [id number] Blood 07/20/2025 12:3 2 AM EDT 07/20/2025 12:35 AM EDT Everton Lassiter MD POINT OF CARE TEST ORDERABLES Fi nal Result [facility]
[address] [place] [id number], * (ABNORMAL) POC Glucose Once (07/19/2025 8:33 PM EDT) Glucose 415(HH) 70 - 130 mg/dL 07/19/2025 8:35 PM EDT [facility] Comment:Serial Number: [id number]: [id number] Nova Comment 1 Notified Patients RN 07/19/2025 8:35 PM EDT [facility] Blood 07/19/2025 8:33 PM EDT 07/19/2025 8:35 PM EDT Everton Lassiter MD POINT OF CARE TEST ORDERABLES Fi nal Result Performing Organization Address [facility] Co de Phone Number [facility]
[address] [place] [address], * (ABNORMAL) POC Glucose Once (07/19/2025 4:13 PM EDT) Glucose 133(H) 70 - 130 mg/dL 07/19/2025 4:16 PM EDT [facility] Comment:Serial Number: [id number]: [id number] Blood 07/19/2025 4:13 PM EDT 07/19/2025 4:16 PM EDT Everton Lassiter MD POINT OF CARE TEST ORDERABLES Fi nal Result [facility]
[address] [place] [id number], * (ABNORMAL) POC Glucose 4x Daily Before Meals & at Bedtime (07/19/2025 12:01 PM EDT) Glucose 294(H) 70 - 130 mg/dL 07/19/2025 12:07 PM EDT [facility] Comment:Serial Number: [id number]: [id number] Blood 07/19/2025 12:0 1 PM EDT 07/19/2025 12:07 PM EDT us Everton Lassiter MD POINT OF CARE TEST ORDERABLES Fi nal Result Performing Organization Address [facility] de Phone Number [facility]
[address] [place] [address], * (ABNORMAL) POC Glucose 4x Daily Before Meals & at Bedtime (07/19/2025 7:25 AM EDT) Glucose 212(H) 70 - 130 mg/dL 07/19/2025 7:28 AM EDT [facility] Comment:Serial Number: [id number]: [id number] Blood 07/19/2025 7:25 AM EDT 07/19/2025 7:28 AM EDT us Everton Lassiter MD POINT OF CARE TEST ORDERABLES Fi nal Result Performing Organization Address City/[facility] Co de Phone Number [facility]
[address] [place] [address], * (ABNORMAL) CBC Auto Differential (07/19/2025 6:34 AM EDT) WBC 5.03 3.40 - 10.80 10*3/mm3 07/19/2025 9:04 AM EDT [facility] RBC 3.19(L) 3.77 - 5.28 10*6/mm3 07/19/2025 9:04 AM [facility] Hemoglobin 8.2(L) 12.0 - 15.9 g/dL 07/19/2025 9:[facility] Hematocrit 26.3(L) 34.0 - 46.6 % 07/19/2025 9:04 AM [facility] MCV 82.4 79.0 - 97.0 fL 07/19/2025 9:04 AM [facility] MCH 25.7(L) 26.6 - 33.0 pg 07/19/2025 9:04 AM [facility] MCHC 31.2(L) 31.5 - 35.7 g/dL 07/19/2025 9:04 AM [facility] RDW 17.5(H) 12.3 - 15.4 % 07/19/2025 9:04 AM [facility] RDW-SD 52.0 37.0 - 54.0 fl 07/19/2025 9:04 AM [facility] MPV 8.7 6.0 - 12.0 fL 07/19/2025 9:04 AM [facility] Platelets 108(L) 140 - 450 10*3/mm3 07/19/2025 9:04 AM [facility] Neutrophil % 85.4(H) 42.7 - 76.0 % 07/19/2025 9:04 AM [facility] Lymphocyte % 7.2(L) 19.6 - 45.3 % 07/19/2025 9:04 AM [facility] Monocyte % 6.6 5.0 - 12.0 % 07/19/2025 9:04 AM [facility] Eosinophil % 0.0(L) 0.3 - 6.2 % 07/19/2025 9:04 AM [facility] Basophil % 0.0 0.0 - 1.5 % 07/19/2025 9:04 [facility] Immature Grans % 0.8(H) 0.0 - 0.5 % 07/19/2025 9:04 AM EDT [facility] Neutrophils, Absolute 4.30 1.70 - 7.00 10*3/mm3 07/19/2025 9:04 AM EDT [facility] Lymphocytes, Absolute 0.36(L) 0.70 - 3.10 10*3/mm3 07/19/2025 9:04 AM EDT [facility] Monocytes, Absolute 0.33 0.10 - 0.90 10*3/mm3 07/19/2025 9:04 AM EDT [facility] Eosinophils, Absolute 0.00 0.00 - 0.40 10*3/mm3 07/19/2025 9:04 AM EDT [facility] Basophils, Absolute 0.00 0.00 - 0.20 10*3/mm3 07/19/2025 9:04 AM EDT [facility] Immature Grans, Absolute 0.04 0.00 - 0.05 10*3/mm3 07/19/2025 9:04 AM EDT [facility] nRBC 0.0 0.0 - 0.2 /100 WBC 07/19/2025 9:04 AM EDT [facility] Blood Venipuncture / Unknown 07/19/2025 6:34 AM EDT 07/19/2025 7:05 AM EDT Everton Lassiter MD LAB BLOOD ORDERABLES Final Resul t [facility]
[address] [place] [address], * (ABNORMAL) Comprehensive Metabolic Panel (07/19/2025 6:34 AM EDT) Glucose 223(H) 65 - 99 mg/dL 07/19/2025 8:10 AM EDT [facility] BUN 51.1(H) 8.0 - 23.0 mg/dL 07/19/2025 8:10 AM [facility] Creatinine 1.50(H) 0.57 - 1.00 mg/dL 07/19/2025 8:10 AM [facility] Sodium 140 136 - 145 mmol/L 07/19/2025 8:10 AM [facility] Potassium 3.9 3.5 - 5.2 mmol/L 07/19/2025 8:10 AM [facility] Chloride 106 98 - 107 mmol/L 07/19/2025 8:10 AM [facility] CO2 19.6(L) 22.0 - 29.0 mmol/L 07/19/2025 8:10 AM [facility] Calcium 9.4 8.6 - 10.5 mg/dL 07/19/2025 8:10 AM [facility] Total Protein 6.8 6.0 - 8.5 g/dL 07/19/2025 8:10 AM [facility] Albumin 3.6 3.5 - 5.2 g/dL 07/19/2025 8:10 AM [facility] ALT (SGPT) 131(H) 1 - 33 U/L 07/19/2025 8:10 AM [facility] AST (SGOT) 108(H) 1 - 32 U/L 07/19/2025 8:10 AM [facility] Alkaline Phosphatase 186(H) 39 - 117 U/L 07/19/2025 8:10 AM [facility] Total Bilirubin 0.4 0.0 - 1.2 mg/dL 07/19/2025 8:10 AM [facility] Globulin 3.2 gm/dL 07/19/2025 8:10 AM [facility] Comment:Calculated Result A/G Ratio 1.1 g/dL 07/19/2025 8:10 AM [facility] BUN/Creatinine Ratio 34.1(H) 7.0 - 25.0 07/19/2025 8:10 AM [facility] Anion Gap 14.4 5.0 - 15.0 mmol/L 07/19/2025 8:10 AM EDT [facility] eGFR 38.8(L) >60.0 mL/min/1.7 3 07/19/2025 8:10 AM EDT [facility] Blood Venipuncture / Unknown 07/19/2025 6:34 AM EDT 07/19/2025 7:05 AM EDT Narrative [facility] - 07/19/2025 8:10 AM EDT GFR Categories in Chronic Kidney Disease [...] does not include race as a factor Everton Lassiter MD LAB BLOOD ORDERABLES Final Resul t Performing Organization Address City/[facility]/ZIP Co de Phone Number [facility]
[address] [place] [address], * (ABNORMAL) POC Glucose Once (07/19/2025 12:31 AM EDT) [facility] Signature Glucose 228(H) 70 - 130 mg/dL 07/19/2025 12:33 AM EDT [facility] Comment:Serial Number: [id number]: [id number] Blood 07/19/2025 12:3 1 AM EDT 07/19/2025 12:33 AM EDT us Everton Lassiter MD POINT OF CARE TEST ORDERABLES Fi nal Result Performing Organization Address City/[facility]/ZIP Co de Phone Number [facility]
[address] [place] [address], * (ABNORMAL) POC Glucose Once (07/18/2025 8:14 PM EDT) Glucose 434(HH) 70 - 130 mg/dL 07/18/2025 8:16 PM EDT [facility] Comment:Serial Number: [id number]: [id number] Nova Comment 1 Notified Patients RN 07/18/2025 8:16 PM EDT [facility] Blood 07/18/2025 8:14 PM EDT 07/18/2025 8:16 PM EDT us Everton Lassiter MD POINT OF CARE TEST ORDERABLES Fi nal Result Performing Organization Address City/[facility] Co de Phone Number [facility]
[address] [place] [address], [place] [phone] * (ABNORMAL) POC Glucose Once (07/18/2025 8:14 PM EDT) Glucose 418(HH) 70 - 130 mg/dL 07/18/2025 8:16 PM EDT [facility] Comment:Serial Number: [id number]: [id number] Nova Comment 1 Confirmed by Repeat 07/18/2025 8:16 PM EDT [facility] Nova Comment 2 Notified Patients RN 07/18/2025 8:16 PM EDT [facility] Blood 07/18/2025 8:14 PM EDT 07/18/2025 8:16 PM EDT us Everton Lassiter MD POINT OF CARE TEST ORDERABLES Fi nal Result Performing Organization Address City/[facility]/ZIP Co de Phone Number [facility]
[address] [place] [address], [place] [phone] * CT Abdomen Pelvis Without Contrast (07/18/2025 6:47 PM EDT) Anatomical Region Laterality Modality Abdomen, Pelvis N/A Computed Tomogra phy 07/19/2025 7:49 AM EDT Impressions 07/19/2025 8:09 AM EDT Impression: 1.Bilateral nonobstructing renal stones. 2.Large amount of stool in the rectum and colon. There is rectosigmoid colon fecal impaction. Several of the colonic bowel loops are dilated with stool. 3.Widespread osteosclerotic metastatic disease. A few of the metastatic lesions within the visualized right ribs have an expansile destructive appearance. There is a stable pathologic fracture through the posterior aspect of the inferior endplate of L4 similar to before. The fracture fragment is displaced into the anterior epidural space. There are compression deformities in the lower thoracic spine best demonstrated at T10. The appearance has not significantly changed from the previous CT. 4.Additional findings as noted above. The exam is limited by noncontrasted technique, especially in excluding metastatic lesions within the solid abdominal organs. Electronically Signed: Floyd Singleton MD 07/19/2025 8:09 AM EDT Workstation ID: [id number] Narrative 07/19/2025 8:[address] ABDOMEN PELVIS WO CONTRAST Date of Exam: 07/18/2025 6:31 PM EDT Indication: Elevated liver enzymes. The patient has a history of metastatic breast cancer Comparison: 06/10/2025. Technique: Axial CT images were obtained of the abdomen and pelvis without the administration of contrast. Reconstructed coronal and sagittal images were also obtained. Automated exposure control and iterative construction methods were used. Findings: The exam is limited by noncontrasted technique, especially in evaluating the solid abdominal organs. There are bilateral nonobstructing renal stones. The largest stone is in the inferior pole of the left kidney measuring 1.0 cm in diameter. This is stable when compared to the recent study. The liver parenchyma appears stable with no obvious mass. The gallbladder, adrenal glands, pancreas, and spleen are normal. The uterus, adnexal structures, and urinary bladder are normal. The patient has a large amount of stool in the rectum and colon. There is rectosigmoid colon fecal impaction. Several of the colonic bowel loops are dilated with stool. There is no pneumatosis or free air. There is no abnormal bowel wall thickening. The appendix is either small in size or surgically absent. The proximal stomach is distended with food material. There are no definite enlarged lymph nodes in the abdomen and pelvis. There are a few atherosclerotic vascular calcifications in the abdominal aorta and also in the proximal renal arteries. There is mild scarring in the lung bases. There is widespread osteosclerotic metastatic disease. A few of the metastatic lesions within the visualized right ribs have an expansile destructive appearance. There is a stable pathologic fracture through the posterior aspect of the inferior endplate of L4 similar to before. The displaced fracture fragment extends into the anterior epidural space. There are compression deformities in the lower thoracic spine best demonstrated at T10. The appearance has not significantly changed from the previous CT. There are also underlying degenerative changes. Procedure Note Floyd Singleton MD - 07/19/2025 CT ABDOMEN PELVIS WO CONTRAST Date of Exam: 07/18/2025 6:31 PM EDT Indication: Elevated liver enzymes. The patient has a history ofmetastatic breast cancer Comparison: 06/10/2025. Technique: Axial CT images were obtained of the abdomen and pelvis withoutthe administration of contrast. Reconstructed coronal and sagittal imageswere also obtained. Automated exposure control and iterative constructionmethods were used. Findings: The exam is limited by noncontrasted technique, especially in evaluatingthe solid abdominal organs. There are bilateral nonobstructing renalstones. The largest stone is in the inferior pole of the left kidneymeasuring 1.0 cm in diameter. This is stable when compared to the recent study. The liver parenchyma appearsstable with no obvious mass. The gallbladder, adrenal glands, pancreas,and spleen are normal. The uterus, adnexal structures, and urinary bladderare normal. The patient has a large amount of stool in the rectum and colon. There is rectosigmoid colon fecalimpaction. Several of the colonic bowel loops are dilated with stool.There is no pneumatosis or free air. There is no abnormal bowel wallthickening. The appendix is either small in size or surgically absent. The proximal stomach is distended with foodmaterial. There are no definite enlarged lymph nodes in the abdomen andpelvis. There are a few atherosclerotic vascular calcifications in theabdominal aorta and also in the proximal renal arteries. There is mild scarring in the lung bases. Thereis widespread osteosclerotic metastatic disease. A few of the metastaticlesions within the visualized right ribs have an expansile destructiveappearance. There is a stable pathologic fracture through the posterior aspect of the inferior endplateof L4 similar to before. The displaced fracture fragment extends into theanterior epidural space. There are compression deformities in the lowerthoracic spine best demonstrated at T10. The appearance has not significantly changed from the previous CT.There are also underlying degenerative changes. IMPRESSION: Impression: 1.Bilateral nonobstructing renal stones. 2.Large amount of stool in the rectum and colon. There is rectosigmoidcolon fecal impaction. Several of the colonic bowel loops are dilated withstool. 3.Widespread osteosclerotic metastatic disease. A few of the metastaticlesions within the visualized right ribs have an expansile destructiveappearance. There is a stable pathologic fracture through the posterioraspect of the inferior endplate of L4 similar to before. The fracture fragment is displaced into the anteriorepidural space. There are compression deformities in the lower thoracicspine best demonstrated at T10. The appearance has not significantlychanged from the previous CT. 4.Additional findings as noted above. The exam is limited by noncontrastedtechnique, especially in excluding metastatic lesions within the solidabdominal organs. Electronically Signed: Floyd Singleton MD 07/19/2025 8:09 AM EDT Workstation ID: [id number] Everton Lassiter MD IMG CT ORDERABLES Final Result * (ABNORMAL) POC Glucose Once (07/18/2025 4:31 PM EDT) Glucose 158(H) 70 - 130 mg/dL 07/18/2025 4:33 PM EDT [facility] Comment:Serial Number: [id number]: [id number] Blood 07/18/2025 4:31 PM EDT 07/18/2025 4:33 PM EDT us Everton Lassiter MD POINT OF CARE TEST ORDERABLES Fi nal Result [facility]
[address] [place] [id number], * (ABNORMAL) POC Glucose 4x Daily Before Meals & at Bedtime (07/18/2025 7:23 AM EDT) Glucose 251(H) 70 - 130 mg/dL 07/18/2025 8:23 AM EDT [facility] Comment:Serial Number: [id number]: [id number] Blood 07/18/2025 7:23 AM EDT 07/18/2025 8:23 AM EDT Everton Lassiter MD POINT OF CARE TEST ORDERABLES nal Result [facility]
[address] [place] [id number], * (ABNORMAL) CBC Auto Differential (07/18/2025 6:08 AM EDT) Pathologist [facility] WBC 5.26 3.40 - 10.80 10*3/mm3 07/18/2025 6:48 AM EDT [facility] RBC 3.08(L) 3.77 - 5.28 10*6/mm3 07/18/2025 6:48 AM EDT [facility] Hemoglobin 7.8(L) 12.0 - 15.9 g/dL 07/18/2025 6:48 AM EDT [facility] Hematocrit 25.2(L) 34.0 - 46.6 % 07/18/2025 6:48 AM EDT [facility] MCV 81.8 79.0 - 97.0 fL 07/18/2025 6:48 AM EDT [facility] MCH 25.3(L) 26.6 - 33.0 pg 07/18/2025 6:48 AM EDT [facility] MCHC 31.0(L) 31.5 - 35.7 g/dL 07/18/2025 6:48 AM EDT [facility] RDW 17.2(H) 12.3 - 15.4 % 07/18/2025 6:48 AM EDT [facility] RDW-SD 50.9 37.0 - 54.0 fl 07/18/2025 6:48 AM EDT [facility] MPV 8.8 6.0 - 12.0 fL 07/18/2025 6:48 AM EDT [facility] Platelets 85(L) 140 - 450 10*3/mm3 07/18/2025 6:48 AM EDT [facility] Neutrophil % 86.0(H) 42.7 - 76.0 % 07/18/2025 6:48 AM EDT [facility] Lymphocyte % 6.8(L) 19.6 - 45.3 % 07/18/2025 6:48 AM EDT [facility] Monocyte % 6.1 5.0 - 12.0 % 07/18[facility]2025 6:[facility] Eosinophil % 0.0(L) 0.3 - 6.2 % 07/18/2025 6:48 [facility] Basophil % 0.0 0.0 - 1.5 % 07/18/2025 6:48 [facility] Immature Grans % 1.1(H) 0.0 - 0.5 % 07/18/2025 6:48 AM EDT [facility] Neutrophils, Absolute 4.52 1.70 - 7.00 10*3/mm3 07/18/2025 6:48 [facility] Lymphocytes, Absolute 0.36(L) 0.70 - 3.10 10*3/mm3 07/18/2025 6:48 AM [facility] Monocytes, Absolute 0.32 0.10 - 0.90 10*3/mm3 07/18/2025 6:48 AM [facility] Eosinophils, Absolute 0.00 0.00 - 0.40 10*3/mm3 07/18/2025 6:48 AM [facility] Basophils, Absolute 0.00 0.00 - 0.20 10*3/mm3 07/18/2025 6:48 [facility] Immature Grans, Absolute 0.06(H) 0.00 - 0.05 10*3/mm3 07/18/2025 6:48 AM EDT [facility] nRBC 0.0 0.0 - 0.2 /100 WBC 07/18/2025 6:48 AM EDT [facility] Blood Venipuncture / Unknown 07/18/2025 6:08 AM EDT 07/18/2025 6:13 AM EDT Everton Lassiter MD LAB BLOOD ORDERABLES Final Resul t [facility]
[address] [place] [id number], * (ABNORMAL) Comprehensive Metabolic Panel (07/18/2025 6:08 AM EDT) Glucose 258(H) 65 - 99 mg/dL 07/18/2025 6:50 AM EDT [facility] BUN 53.0(H) 8.0 - 23.0 mg/dL 07/18/2025 6:50 AM EDT [facility] Creatinine 1.64(H) 0.57 - 1.00 mg/dL 07/18/2025 6:50 AM EDT [facility] Sodium 138 136 - 145 mmol/L 07/18/2025 6:50 AM EDT [facility] Potassium 4.1 3.5 - 5.2 mmol/L 07/18/2025 6:50 AM EDT [facility] Chloride 103 98 - 107 mmol/L 07/18/2025 6:50 AM EDT [facility] CO2 22.0 22.0 - 29.0 mmol/L 07/18/2025 6:50 AM EDT [facility] Calcium 9.4 8.6 - 10.5 mg/dL 07/18/2025 6:50 AM EDT [facility] Total Protein 6.7 6.0 - 8.5 g/dL 07/18/2025 6:50 AM EDT [facility] Albumin 3.7 3.5 - 5.2 g/dL 07/18/2025 6:50 AM EDT [facility] ALT (SGPT) 115(H) 1 - 33 U/L 07/18/2025 6:50 AM T [facility] AST (SGOT) 118(H) 1 - 32 U/L 07/18/2025 6:50 AM T [facility] Alkaline Phosphatase 180(H) 39 - 117 U/L 07/18/2025 6:50 AM EDT [facility] Total Bilirubin 0.3 0.0 - 1.2 mg/dL 07/18/2025 6:50 AM EDT [facility] Globulin 3.0 gm/dL 07/18/2025 6:50 AM [facility] Comment:Calculated Result A/G Ratio 1.2 g/dL 07/18/2025 6:50 AM [facility] BUN/Creatinine Ratio 32.3(H) 7.0 - 25.0 07/18/2025 6:50 AM T [facility] Anion Gap 13.0 5.0 - 15.0 mmol/L 07/18/2025 6:50 AM [facility] eGFR 34.8(L) >60.0 mL/min/1.7 3 07/18/2025 6:50 AM [facility] Blood Venipuncture / Unknown 07/18/2025 6:08 AM EDT 07/18/2025 6:12 AM EDT [facility] - 07/18/2025 6:50 AM EDT GFR Categories in Chronic Kidney Disease [...] does not include race as a factor Everton Lassiter MD LAB BLOOD ORDERABLES Final Resul t Performing Organization Address City/[facility]/ZIP Co de Phone Number [facility]
[address] [place] [address], * (ABNORMAL) POC Glucose Once (07/17/2025 8:08 PM EDT) Glucose 338(H) 70 - 130 mg/dL 07/18/2025 8:21 AM EDT [facility] Comment:Serial Number: [id number]: [id number] Blood 07/17/2025 8:08 PM EDT 07/18/2025 8:21 AM EDT Everton Lassiter MD POINT OF CARE TEST ORDERABLES Fi nal Result Performing Organization Address City/[facility] Co de Phone Number [facility]
[address] [place] [address], * (ABNORMAL) POC Glucose Once (07/17/2025 4:31 PM EDT) Glucose 336(H) 70 - 130 mg/dL 07/17/2025 4:33 PM EDT [facility] Comment:Serial Number: [id number]: [id number] Blood 07/17/2025 4:31 PM EDT 07/17/2025 4:33 PM EDT Everton Lassiter MD POINT OF CARE TEST ORDERABLES Fi nal Result Performing Organization Address City/[facility]/ZIP Co de Phone Number [facility]
[address] [place] [address], * XR Knee 1 or 2 View Left (07/17/2025 12:03 PM EDT) Anatomical Region Laterality Modality Lower Extremities, Knee Left Radiogra phic Imaging 07/17/2025 1:00 PM EDT Impressions 07/17/2025 1:02 PM EDT 1.Small suprapatellar effusion. 2.Mild tricompartmental osteophyte formation without definite joint space narrowing. Electronically Signed: Shahriar Ines 07/17/2025 1:02 PM EDT Workstation ID: [id number] Narrative 07/17/2025 1:02 PM EDT XR KNEE 1 OR 2 VW LEFT Date of Exam: 07/17/2025 11:32 AM EDT Indication: Left knee effusion. Comparison: 05/01/2018. FINDINGS: No fracture is identified. Mineralization and alignment appear within normal limits. Soft tissues appear unremarkable. Mild tricompartmental osteophyte formation. Joint spaces appear preserved. Small suprapatellar effusion. Procedure Note Shahriar Chacon MD - 07/17/2025 XR KNEE 1 OR 2 VW LEFT Date of Exam: 07/17/2025 11:32 AM EDT Indication: Left knee effusion. Comparison: 05/01/2018. FINDINGS: No fracture is identified. Mineralization and alignment appear withinnormal limits. Soft tissues appear unremarkable. Mild tricompartmentalosteophyte formation. Joint spaces appear preserved. Small suprapatellareffusion. IMPRESSION: 1.Small suprapatellar effusion. 2.Mild tricompartmental osteophyte formation without definite joint spacenarrowing. Electronically Signed: Shahriar Chacon 07/17/2025 1:02 PM EDT Workstation ID: [id number] us Everton Lassiter MD IMG DIAGNOSTIC IMAGING ORDERABLE S Final Result * (ABNORMAL) POC Glucose 4x Daily Before Meals & at Bedtime (07/17/2025 11:39 AM EDT) Glucose 252(H) 70 - 130 mg/dL 07/17/2025 11:42 AM EDT [facility] Comment:Serial Number: [id number]: [id number] Blood 07/17/2025 11:3 9 AM EDT 07/17/2025 11:42 AM EDT us Everton Lassiter MD POINT OF CARE TEST ORDERABLES Fi nal Result Performing Organization Address [facility] Co de Phone Number [facility]
[address] [place] [address], * (ABNORMAL) POC Glucose 4x Daily Before Meals & at Bedtime (07/17/2025 7:15 AM EDT) Glucose 202(H) 70 - 130 mg/dL 07/17/2025 7:17 AM EDT [facility] Comment:Serial Number: [id number]: [id number] Blood 07/17/2025 7:15 AM EDT 07/17/2025 7:17 AM EDT Everton Lassiter MD POINT OF CARE TEST ORDERABLES Fi nal Result Performing Organization Address [facility] Co de Phone Number [facility]
[address] [place] [address], * ABO RH Specimen Verification (07/16/2025 8:19 AM EDT) ABO Type O 07/16/2025 10:05 AM EDT [facility] RH type Positive 07/16/2025 10:05 AM EDT [facility] Blood Venipuncture / Unknown 07/16/2025 8:19 AM EDT 07/16/2025 9:05 AM EDT Everton Lassiter MD BLOOD BANK TEST ORDERABLES Final Result Performing Organization Address [facility] Co de Phone Number [facility]
[address] [place] [address], * (ABNORMAL) CBC Auto Differential (07/16/2025 8:19 AM EDT) WBC 6.18 3.40 - 10.80 10*3/mm3 07/16/2025 9:09 AM [facility] RBC 3.28(L) 3.77 - 5.28 10*6/mm3 07/16/2025 9:09 AM [facility] Hemoglobin 8.3(L) 12.0 - 15.9 g/dL 07/16/2025 9:09 AM [facility] Hematocrit 27.2(L) 34.0 - 46.6 % 07/16/2025 9:09 AM [facility] MCV 82.9 79.0 - 97.0 fL 07/16/2025 9:09 AM [facility] MCH 25.3(L) 26.6 - 33.0 pg 07/16/2025 9:09 AM [facility] MCHC 30.5(L) 31.5 - 35.7 g/dL 07/16/2025 9:09 AM [facility] RDW 16.9(H) 12.3 - 15.4 % 07/16/2025 9:09 AM [facility] RDW-SD 50.6 37.0 - 54.0 fl 07/16/2025 9:09 AM [facility] MPV 9.7 6.0 - 12.0 fL 07/16/2025 9:09 AM [facility] Platelets 110(L) 140 - 450 10*3/mm3 07/16/2025 9:09 AM [facility] Neutrophil % 89.4(H) 42.7 - 76.0 % 07/16/2025 9:09 AM [facility] Lymphocyte % 6.1(L) 19.6 - 45.3 % 07/16/2025 9:09 AM [facility] Monocyte % 4.0(L) 5.0 - 12.0 % 07/16/2025 9:09 AM [facility] Eosinophil % 0.0(L) 0.3 - 6.2 % 07/16/2025 9:09 AM [facility] Basophil % 0.0 0.0 - 1.5 % 07/16/2025 9:09 AM EDT [facility] Immature Grans % 0.5 0.0 - 0.5 % 07/16/2025 9:09 AM EDT [facility] Neutrophils, Absolute 5.52 1.70 - 7.00 10*3/mm3 07/16/2025 9:09 AM EDT [facility] Lymphocytes, Absolute 0.38(L) 0.70 - 3.10 10*3/mm3 07/16/2025 9:09 AM EDT [facility] Monocytes, Absolute 0.25 0.10 - 0.90 10*3/mm3 07/16/2025 9:09 AM EDT [facility] Eosinophils, Absolute 0.00 0.00 - 0.40 10*3/mm3 07/16/2025 9:09 AM EDT [facility] Basophils, Absolute 0.00 0.00 - 0.20 10*3/mm3 07/16/2025 9:09 AM EDT [facility] Immature Grans, Absolute 0.03 0.00 - 0.05 10*3/mm3 07/16/2025 9:09 AM EDT [facility] nRBC 0.0 0.0 - 0.2 /100 WBC 07/16/2025 9:09 AM EDT [facility] Blood Venipuncture / Unknown 07/16/2025 8:19 AM EDT 07/16/2025 9:04 AM EDT us Everton Lassiter MD LAB BLOOD ORDERABLES Final Resul t [facility]
[address] [place] [address], * Phosphorus (07/16/2025 8:19 AM EDT) Phosphorus 3.6 2.5 - 4.5 mg/dL 07/16/2025 9:35 AM EDT [facility] Blood Venipuncture / Unknown 07/16/2025 8:19 AM EDT 07/16/2025 9:04 AM EDT us Everton Lassiter MD LAB BLOOD ORDERABLES Final Resul t [facility]
[address] [place] [id number], * (ABNORMAL) Comprehensive Metabolic Panel (07/16/2025 8:19 AM EDT) Glucose 212(H) 65 - 99 mg/dL 07/16/2025 10:21 AM EDT [facility] BUN 30.4(H) 8.0 - 23.0 mg/dL 07/16/2025 10:21 AM EDT [facility] Creatinine 1.51(H) 0.57 - 1.00 mg/dL 07/16/2025 10:21 AM EDT [facility] Sodium 140 136 - 145 mmol/L 07/16/2025 10:21 AM EDT [facility] Potassium 4.0 3.5 - 5.2 mmol/L 07/16/2025 10:21 AM EDT [facility] Comment:Specimen hemolyzed. Result may be falsely elevated. Chloride 103 98 - 107 mmol/L 07/16/2025 10:21 AM EDT [facility] CO2 24.6 22.0 - 29.0 mmol/L 07/16/2025 10:21 AM EDT [facility] Calcium 10.0 8.6 - 10.5 mg/dL 07/16/2025 10:21 AM EDT [facility] Total Protein 8.0 6.0 - 8.5 g/dL 07/16/2025 10:21 AM EDT [facility] Albumin 4.1 3.5 - 5.2 g/dL 07/16/2025 10:21 AM EDT [facility] ALT (SGPT) 38(H) 1 - 33 U/L 07/16/2025 10:21 AM EDT [facility] AST (SGOT) 57(H) 1 - 32 U/L 07/16/2025 10:21 AM T [facility] Alkaline Phosphatase 155(H) 39 - 117 U/L 07/16/2025 10:21 AM EDT [facility] Total Bilirubin 0.4 0.0 - 1.2 mg/dL 07/16/2025 10:21 AM EDT [facility] Globulin 3.9 gm/dL 07/16/2025 10:21 AM T [facility] Comment:Calculated Result A/G Ratio 1.1 g/dL 07/16/2025 10:21 AM T [facility] BUN/Creatinine Ratio 20.1 7.0 - 25.0 07/16/2025 10:21 AM T [facility] Anion Gap 12.4 5.0 - 15.0 mmol/L 07/16/2025 10:21 AM [facility] eGFR 38.4(L) >60.0 mL/min/1.7 3 07/16/2025 10:21 AM [facility] Blood Venipuncture / Unknown 07/16/2025 8:19 AM EDT 07/16/2025 9:04 AM EDT [facility] - 07/16/2025 10:21 AM EDT GFR Categories in Chronic Kidney Disease [...] does not include race as a factor us Everton Lassiter MD LAB BLOOD ORDERABLES Final Resul t [facility]
[address] [place] [id number], * (ABNORMAL) Magnesium (07/16/2025 8:19 AM EDT) Magnesium 2.9(H) 1.6 - 2.4 mg/dL 07/16/2025 9:38 AM EDT [facility] Blood Venipuncture / Unknown 07/16/2025 8:19 AM EDT 07/16/2025 9:04 AM EDT Everton Lassiter MD LAB BLOOD ORDERABLES Final Resul t Performing Organization Address City/[facility]/ZIP Co de Phone Number [facility]
[address] [place] [address], * (ABNORMAL) POC Glucose Once (07/15/2025 7:55 PM EDT) Glucose 345(H) 70 - 130 mg/dL 07/15/2025 7:57 PM EDT [facility] Comment:Serial Number: [id number]: [id number] Blood 07/15/2025 7:55 PM EDT 07/15/2025 7:57 PM EDT Everton Lassiter MD POINT OF CARE TEST ORDERABLES Fi nal Result [facility]
[address] [place] [address], * (ABNORMAL) POC Glucose Once (07/15/2025 4:21 PM EDT) Glucose 244(H) 70 - 130 mg/dL 07/15/2025 4:23 PM EDT [facility] Comment:Serial Number: [id number]: [id number] Blood 07/15/2025 4:21 PM EDT 07/15/2025 4:23 PM EDT Everton Lassiter MD POINT OF CARE TEST ORDERABLES Fi nal Result [facility]
[address] [place] [address], * MRI Cervical Spine With & Without Contrast (07/15/2025 1:27 PM EDT) Anatomical Region Laterality Modality Spine, C-spine N/A Magnetic Resonan ce 07/15/2025 2:32 PM EDT Impressions 07/15/2025 2:45 PM EDT Impression: 1.2.5 cm heterogeneously enhancing mass within spinal canal at the C6-7 level, which appears to be intramedullary. There is diffuse T2 hyperintensity within the spinal cord extending from the level of C1 inferiorly through the visualized upper thoracic spine. These are new findings from prior MRI from 2021. Findings are concerning for metastasis, with primary spinal cord neoplasm felt less likely. 2.Several sclerotic osseous metastasis, better characterized on recent prior CT. 3.Moderate multilevel degenerative changes of cervical spine as described above. Electronically Signed: Gabino Peace MD 07/15/2025 2:45 PM EDT Workstation ID: [id number] Narrative 07/15/2025 2:45 PM EDT MRI CERVICAL SPINE W WO CONTRAST Date of Exam: 07/15/2025 12:15 PM EDT Indication: eval cord compression. Breast cancer Comparison: CT cervical spine from 2025 and MRI cervical spine from December 18, 2019 Technique: Routine multiplanar/multisequence sequence images of the cervical spine were obtained before and after the uneventful administration of Vueway. Findings: The alignment is anatomic. The craniocervical junction appears intact. Several sclerotic osseous metastasis are present, better characterized on recent prior CT. The cervical vertebral body heights appear normal. There is a mild chronic superior endplate compression deformity at T1. There is disc desiccation at all levels. The partially visualized posterior fossa contents are unremarkable. There is diffuse T2 hyperintensity within the spinal cord extending from the level of C1 inferiorly through the visualized upper thoracic spine. In addition, there is a 1.2 x 0.8 x 2.5 cm (TR X AP X CC) heterogeneously enhancing mass within the spinal canal at the C6-7 level, which appears to be intramedullary. These are new findings from prior MRI from 2021. C2-3: Small central disc protrusion. Mild bilateral facet arthropathy. No spinal canal stenosis. No neural foraminal stenosis. C3-4: Moderate central disc protrusion. Moderate bilateral facet arthropathy. Moderate right uncovertebral hypertrophy. Mild spinal canal stenosis. Severe right neural foraminal stenosis. C4-5: Mild disc osteophyte complex with superimposed small central disc protrusion. Moderate bilateral facet arthropathy. Moderate right and mild left uncovertebral hypertrophy. Mild spinal canal stenosis. Mild right and moderate left neural foraminal stenosis. C5-6: Moderate central disc protrusion. Moderate bilateral facet arthropathy. Mild bilateral uncovertebral hypertrophy. Moderate spinal canal stenosis. Mild right neural foraminal stenosis. C6-7: Mild disc bulge with superimposed tiny central disc protrusion. Moderate bilateral facet arthropathy. Mild right and moderate left uncovertebral hypertrophy. Mild spinal canal stenosis. Mild bilateral neural foraminal stenosis. C7-T1: No spinal canal or neural foraminal stenosis. Procedure Note Gabino Peace MD - 07/15/2025 MRI CERVICAL SPINE W WO CONTRAST Date of Exam: 07/15/2025 12:15 PM EDT Indication: eval cord compression. Breast cancer Comparison: CT cervical spine from 2025 and MRI cervical spinefrom December 18, 2019 Technique: Routine multiplanar/multisequence sequence images of thecervical spine were obtained before and after the uneventfuladministration of Vueway. Findings: The alignment is anatomic. The craniocervical junction appears intact.Several sclerotic osseous metastasis are present, better characterized onrecent prior CT. The cervical vertebral body heights appear normal. Thereis a mild chronic superior endplate compression deformity at T1. There is disc desiccation at all levels. Thepartially visualized posterior fossa contents are unremarkable. There is diffuse T2 hyperintensity within the spinal cord extending fromthe level of C1 inferiorly through the visualized upper thoracic spine. Inaddition, there is a 1.2 x 0.8 x 2.5 cm (TR X AP X CC) heterogeneouslyenhancing mass within the spinal canal at the C6-7 level, which appears to be intramedullary. These are newfindings from prior MRI from 2021. C2-3: Small central disc protrusion. Mild bilateral facet arthropathy. Nospinal canal stenosis. No neural foraminal stenosis. C3-4: Moderate central disc protrusion. Moderate bilateral facetarthropathy. Moderate right uncovertebral hypertrophy. Mild spinal canalstenosis. Severe right neural foraminal stenosis. C4-5: Mild disc osteophyte complex with superimposed small central discprotrusion. Moderate bilateral facet arthropathy. Moderate right and mildleft uncovertebral hypertrophy. Mild spinal canal stenosis. Mild right andmoderate left neural foraminal stenosis. C5-6: Moderate central disc protrusion. Moderate bilateral facetarthropathy. Mild bilateral uncovertebral hypertrophy. Moderate spinalcanal stenosis. Mild right neural foraminal stenosis. C6-7: Mild disc bulge with superimposed tiny central disc protrusion.Moderate bilateral facet arthropathy. Mild right and moderate leftuncovertebral hypertrophy. Mild spinal canal stenosis. Mild bilateralneural foraminal stenosis. C7-T1: No spinal canal or neural foraminal stenosis. IMPRESSION: Impression: 1.2.5 cm heterogeneously enhancing mass within spinal canal at the C6-7level, which appears to be intramedullary. There is diffuse [id number] within the spinal cord extending from the level of [id number] through the visualized upper thoracic spine. These are new findings from prior MRI from 2021. Findings areconcerning for metastasis, with primary spinal cord neoplasm felt lesslikely. 2.Several sclerotic osseous metastasis, better characterized on recentprior CT. 3.Moderate multilevel degenerative changes of cervical spine as describedabove. Electronically Signed: aGbino Peace MD 07/15/2025 2:45 PM EDT Workstation ID: [id number] us Carson Colvin MD [facility] MRI ORDERABLES Final Resu lt * (ABNORMAL) Hemoglobin A1c (07/15/2025 9:18 AM EDT) Hemoglobin A1C 5.83(H) 4.80 - 5.60 % 07/15/2025 9:55 AM EDT [facility] Blood Venipuncture / Unknown 07/15/2025 9:18 AM EDT 07/15/2025 9:30 AM EDT Narrative [facility] - 07/15/2025 9:55 AM EDT Hemoglobin A1C Ranges: Increased Risk for Diabetes 5.7% to 6.4% Diabetes >= 6.5% Diabetic Goal < 7.0% Meaghan Guerrier MD LAB BLOOD ORDERABLES Final Re sult Performing Organization Address [facility] Co de Phone Number [facility]
[address] [place] [id number], * Type & Screen (07/15/2025 9:18 AM EDT) ABO Type O 07/15/2025 10:39 AM EDT [facility] RH type Positive 07/15/2025 10:39 AM EDT [facility] Antibody Screen Negative 07/15/2025 10:39 AM EDT [facility] T&S Expiration Date 07/18/2025 11:59:59 PM 07/15/2025 10:39 AM EDT [facility] Blood Venipuncture / Unknown 07/15/2025 9:18 AM EDT 07/15/2025 9:34 AM EDT Meaghan Guerrier MD BLOOD BANK TEST ORDERABLES Ed ited Result - Final Performing Organization Address [facility] de Phone Number [facility]
[address] [place] [address], * (ABNORMAL) Magnesium (07/15/2025 9:18 AM EDT) Magnesium 1.5(L) 1.6 - 2.4 mg/dL 07/15/2025 10:06 AM EDT [facility] Blood Venipuncture / Unknown 07/15/2025 9:18 AM EDT 07/15/2025 9:30 AM EDT Meaghan Guerrier MD LAB BLOOD ORDERABLES Final Re sult Performing Organization Address City/[facility]/ZIP Co de Phone Number [facility]
[address] [place] [id number], * Phosphorus (07/15/2025 9:18 AM EDT) Pathologist [facility] Phosphorus 3.6 2.5 - 4.5 mg/dL 07/15/2025 10:06 AM EDT [facility] Blood Venipuncture / Unknown 07/15/2025 9:18 AM EDT 07/15/2025 9:30 AM EDT Meaghan Guerrier MD LAB BLOOD ORDERABLES Final Re sult Performing Organization Address [facility] Co de Phone Number [facility]
[address] [place] [id number], * (ABNORMAL) CBC Auto Differential (07/15/2025 9:18 AM EDT) Pathologist [facility] WBC 2.72(L) 3.40 - 10.80 10*3/mm3 07/15/2025 9:47 AM EDT [facility] RBC 3.30(L) 3.77 - 5.28 10*6/mm3 07/15/2025 9:47 AM EDT [facility] Hemoglobin 8.5(L) 12.0 - 15.9 g/dL 07/15/2025 9:47 AM EDT [facility] Hematocrit 27.9(L) 34.0 - 46.6 % 07/15/2025 9:47 AM EDT [facility] MCV 84.5 79.0 - 97.0 fL 07/15/2025 9:47 AM EDT [facility] MCH 25.8(L) 26.6 - 33.0 pg 07/15/2025 9:47 AM EDT [facility] MCHC 30.5(L) 31.5 - 35.7 g/dL 07/15/2025 9:47 AM [facility] RDW 16.8(H) 12.3 - 15.4 % 07/15/2025 9:47 AM [facility] RDW-SD 51.9 37.0 - 54.0 fl 07/15/2025 9:47 AM [facility] MPV 8.8 6.0 - 12.0 fL 07/15/2025 9:47 AM [facility] Platelets 69(L) 140 - 450 10*3/mm3 07/15/2025 9:47 AM [facility] Neutrophil % 88.2(H) 42.7 - 76.0 % 07/15/2025 9:47 AM [facility] Lymphocyte % 9.6(L) 19.6 - 45.3 % 07/15/2025 9:47 AM [facility] Monocyte % 1.8(L) 5.0 - 12.0 % 07/15/2025 9:47 AM [facility] Eosinophil % 0.0(L) 0.3 - 6.2 % 07/15/2025 9:47 AM [facility] Basophil % 0.0 0.0 - 1.5 % 07/15/2025 9:47 AM [facility] Immature Grans % 0.4 0.0 - 0.5 % 07/15/2025 9:47 AM [facility] Neutrophils, Absolute 2.40 1.70 - 7.00 10*3/mm3 07/15/2025 9:47 AM [facility] Lymphocytes, Absolute 0.26(L) 0.70 - 3.10 10*3/mm3 07/15/2025 9:47 AM [facility] Monocytes, Absolute 0.05(L) 0.10 - 0.90 10*3/mm3 07/15/2025 9:47 AM [facility] Eosinophils, Absolute 0.00 0.00 - 0.40 10*3/mm3 07/15/2025 9:47 AM [facility] Basophils, Absolute 0.00 0.00 - 0.20 10*3/mm3 07/15/2025 9:47 AM EDT [facility] Immature Grans, Absolute 0.01 0.00 - 0.05 10*3/mm3 07/15/2025 9:47 AM EDT [facility] nRBC 0.0 0.0 - 0.2 /100 WBC 07/15/2025 9:47 AM EDT [facility] Blood Venipuncture / Unknown 07/15/2025 9:18 AM EDT 07/15/2025 9:30 AM EDT us Meaghan Guerrier MD LAB BLOOD ORDERABLES Final Re sult [facility]
[id number] [place] [id number], * (ABNORMAL) Comprehensive Metabolic Panel (07/15/2025 9:18 AM EDT) Glucose 182(H) 65 - 99 mg/dL 07/15/2025 10:06 AM EDT [facility] BUN 25.7(H) 8.0 - 23.0 mg/dL 07/15/2025 10:06 AM T [facility] Creatinine 1.47(H) 0.57 - 1.00 mg/dL 07/15/2025 10:06 AM EDT [facility] Sodium 139 136 - 145 mmol/L 07/15/2025 10:06 AM EDT [facility] Potassium 4.0 3.5 - 5.2 mmol/L 07/15/2025 10:06 AM EDT [facility] Chloride 104 98 - 107 mmol/L 07/15/2025 10:06 AM EDT [facility] CO2 23.3 22.0 - 29.0 mmol/L 07/15/2025 10:06 AM EDT [facility] Calcium 9.6 8.6 - 10.5 mg/dL 07/15/2025 10:06 AM [facility] Total Protein 7.4 6.0 - 8.5 g/dL 07/15/2025 10:06 AM [facility] Albumin 3.9 3.5 - 5.2 g/dL 07/15/2025 10:06 AM [facility] ALT (SGPT) 27 1 - 33 U/L 07/15/2025 10:06 AM [facility] AST (SGOT) 43(H) 1 - 32 U/L 07/15/2025 10:06 AM [facility] Alkaline Phosphatase 144(H) 39 - 117 U/L 07/15/2025 10:06 AM [facility] Total Bilirubin 0.4 0.0 - 1.2 mg/dL 07/15/2025 10:06 AM [facility] Globulin 3.5 gm/dL 07/15/2025 10:06 AM [facility] Comment:Calculated Result A/G Ratio 1.1 g/dL 07/15/2025 10:06 AM [facility] BUN/Creatinine Ratio 17.5 7.0 - 25.0 07/15/2025 10:06 AM [facility] Anion Gap 11.7 5.0 - 15.0 mmol/L 07/15/2025 10:06 AM [facility] eGFR 39.7(L) >60.0 mL/min/1.7 3 07/15/2025 10:06 AM [facility] Blood Venipuncture / Unknown 07/15/2025 9:18 AM EDT 07/15/2025 9:30 AM [facility] - 07/15/2025 10:06 AM EDT GFR Categories in Chronic Kidney Disease [...] does not include race as a factor Meaghan Guerrier MD LAB BLOOD ORDERABLES Final Re sult Performing Organization Address City/[facility]/ZIP Co de Phone Number [facility]
[address] [place] [id number], * (ABNORMAL) POC Glucose Once (07/15/2025 5:48 AM EDT) Glucose 188(H) 70 - 130 mg/dL 07/15/2025 5:51 AM EDT [facility] Comment:Serial Number: [id number] Blood 07/15/2025 5:48 AM EDT 07/15/2025 5:51 AM EDT Meaghan Guerrier MD POINT OF CARE TEST ORDERABLES Final Result Performing Organization Address [facility] Co de Phone Number [facility]
[address] [place] [address], * XR Tibia Fibula 2 View Left (2025 11:53 PM EDT) Anatomical Region Laterality Modality Lower Extremities, Lower Leg Left Rad iographic Imaging 2025 11:5 9 PM EDT Impressions 07/15/2025 12:01 AM EDT Impression: 1.No acute osseous abnormality. 2.Moderate osteoarthritis of both hips. 3.Severe diffuse pelvic and trochanteric enthesopathy. 4.Dilated small bowel loops in the central abdomen. Correlate for ileus or obstruction. Electronically Signed: Homero Perez MD 07/15/2025 12:01 AM EDT Workstation ID: [id number] Narrative 07/15/2025 12:01 AM EDT XR FEMUR 2 VW LEFT XR TIBIA FIBULA 2 VW LEFT XR HIPS BILATERAL W OR WO PELVIS 5 VIEW Date of Exam: 2025 11:03 PM EDT Indication: fall, LLE pain/weakness, eval fxr and metastasis. Comparison: None available. Findings: The bony pelvis appears intact without fracture. There is severe diffuse pelvic and trochanteric enthesopathy. Mild symmetric SI joint degeneration. Pubic symphysis and obturator rings appear intact. There is minimal lumbar spondylosis. There are dilated small bowel loops in the central abdomen measuring up to 3.6 cm diameter. There is also mild colonic fecal retention. There is moderate osteoarthritis of both hips. No evidence of hip fracture or dislocation. The mid and distal left femur appears intact without fracture. There is minimal degenerative change at the knee. The bones are diffusely demineralized. The left tibia and fibula appear intact without fracture or dislocation. Joint spaces at the knee and ankle appear well-maintained. Procedure Note Homero Perez MD - 07/15/2025 XR FEMUR 2 VW LEFT XR TIBIA FIBULA 2 VW LEFT XR HIPS BILATERAL W OR WO PELVIS 5 VIEW Date of Exam: 2025 11:03 PM EDT Indication: fall, LLE pain/weakness, eval fxr and metastasis. Comparison: None available. Findings: The bony pelvis appears intact without fracture. There is severe diffusepelvic and trochanteric enthesopathy. Mild symmetric SI jointdegeneration. Pubic symphysis and obturator rings appear intact. There isminimal lumbar spondylosis. There are dilated small bowel loops in the central abdomen measuring up to 3.6 cm diameter.There is also mild colonic fecal retention. There is moderate osteoarthritis of both hips. No evidence of hip fractureor dislocation. The mid and distal left femur appears intact withoutfracture. There is minimal degenerative change at the knee. The bones arediffusely demineralized. The left tibia and fibula appear intact without fracture or dislocation.Joint spaces at the knee and ankle appear well-maintained. IMPRESSION: Impression: 1.No acute osseous abnormality. 2.Moderate osteoarthritis of both hips. 3.Severe diffuse pelvic and trochanteric enthesopathy. 4.Dilated small bowel loops in the central abdomen. Correlate for ileus orobstruction. Electronically Signed: Homero Perez MD 07/15/2025 12:01 AM EDT Workstation ID: [id number] us Carson Colvin MD [facility] ORDERA BLES Final Result * XR Hips Bilateral With or Without Pelvis 5 View (2025 11:52 PM EDT) Anatomical Region Laterality Modality Lower Extremities, Hip Bilateral Radiograp hic Imaging 2025 11:5 9 PM EDT Impressions 07/15/2025 12:01 AM EDT Impression: 1.No acute osseous abnormality. 2.Moderate osteoarthritis of both hips. 3.Severe diffuse pelvic and trochanteric enthesopathy. 4.Dilated small bowel loops in the central abdomen. Correlate for ileus or obstruction. Electronically Signed: Homero Perez MD 07/15/2025 12:01 AM EDT Workstation ID: [id number] Narrative 07/15/2025 12:01 AM EDT XR FEMUR 2 VW LEFT XR TIBIA FIBULA 2 VW LEFT XR HIPS BILATERAL W OR WO PELVIS 5 VIEW Date of Exam: 2025 11:03 PM EDT Indication: fall, LLE pain/weakness, eval fxr and metastasis. Comparison: None available. Findings: The bony pelvis appears intact without fracture. There is severe diffuse pelvic and trochanteric enthesopathy. Mild symmetric SI joint degeneration. Pubic symphysis and obturator rings appear intact. There is minimal lumbar spondylosis. There are dilated small bowel loops in the central abdomen measuring up to 3.6 cm diameter. There is also mild colonic fecal retention. There is moderate osteoarthritis of both hips. No evidence of hip fracture or dislocation. The mid and distal left femur appears intact without fracture. There is minimal degenerative change at the knee. The bones are diffusely demineralized. The left tibia and fibula appear intact without fracture or dislocation. Joint spaces at the knee and ankle appear well-maintained. Procedure Note Homero Perez MD - 07/15/2025 XR FEMUR 2 VW LEFT XR TIBIA FIBULA 2 VW LEFT XR HIPS BILATERAL W OR WO PELVIS 5 VIEW Date of Exam: 2025 11:03 PM EDT Indication: fall, LLE pain/weakness, eval fxr and metastasis. Comparison: None available. Findings: The bony pelvis appears intact without fracture. There is severe diffusepelvic and trochanteric enthesopathy. Mild symmetric SI jointdegeneration. Pubic symphysis and obturator rings appear intact. There isminimal lumbar spondylosis. There are dilated small bowel loops in the central abdomen measuring up to 3.6 cm diameter.There is also mild colonic fecal retention. There is moderate osteoarthritis of both hips. No evidence of hip fractureor dislocation. The mid and distal left femur appears intact withoutfracture. There is minimal degenerative change at the knee. The bones arediffusely demineralized. The left tibia and fibula appear intact without fracture or dislocation.Joint spaces at the knee and ankle appear well-maintained. IMPRESSION: Impression: 1.No acute osseous abnormality. 2.Moderate osteoarthritis of both hips. 3.Severe diffuse pelvic and trochanteric enthesopathy. 4.Dilated small bowel loops in the central abdomen. Correlate for ileus orobstruction. Electronically Signed: Homero ePrez MD 07/15/2025 12:01 AM EDT Workstation ID: [id number] us Carson Colvin MD [facility] ORDERA BLES Final Result * XR Femur 2 View Left (2025 11:52 PM EDT) Anatomical Region Laterality Modality Lower Extremities, Femur Left Radiogr aphic Imaging 2025 11:5 9 PM EDT Impressions 07/15/2025 12:01 AM EDT Impression: 1.No acute osseous abnormality. 2.Moderate osteoarthritis of both hips. 3.Severe diffuse pelvic and trochanteric enthesopathy. 4.Dilated small bowel loops in the central abdomen. Correlate for ileus or obstruction. Electronically Signed: Homero Perez MD 07/15/2025 12:01 AM EDT Workstation ID: [id number] Narrative 07/15/2025 12:01 AM EDT XR FEMUR 2 VW LEFT XR TIBIA FIBULA 2 VW LEFT XR HIPS BILATERAL W OR WO PELVIS 5 VIEW Date of Exam: 2025 11:03 PM EDT Indication: fall, LLE pain/weakness, eval fxr and metastasis. Comparison: None available. Findings: The bony pelvis appears intact without fracture. There is severe diffuse pelvic and trochanteric enthesopathy. Mild symmetric SI joint degeneration. Pubic symphysis and obturator rings appear intact. There is minimal lumbar spondylosis. There are dilated small bowel loops in the central abdomen measuring up to 3.6 cm diameter. There is also mild colonic fecal retention. There is moderate osteoarthritis of both hips. No evidence of hip fracture or dislocation. The mid and distal left femur appears intact without fracture. There is minimal degenerative change at the knee. The bones are diffusely demineralized. The left tibia and fibula appear intact without fracture or dislocation. Joint spaces at the knee and ankle appear well-maintained. Procedure Note Homero Perez MD - 07/15/2025 XR FEMUR 2 VW LEFT XR TIBIA FIBULA 2 VW LEFT XR HIPS BILATERAL W OR WO PELVIS 5 VIEW Date of Exam: 2025 11:03 PM EDT Indication: fall, LLE pain/weakness, eval fxr and metastasis. Comparison: None available. Findings: The bony pelvis appears intact without fracture. There is severe diffusepelvic and trochanteric enthesopathy. Mild symmetric SI jointdegeneration. Pubic symphysis and obturator rings appear intact. There isminimal lumbar spondylosis. There are dilated small bowel loops in the central abdomen measuring up to 3.6 cm diameter.There is also mild colonic fecal retention. There is moderate osteoarthritis of both hips. No evidence of hip fractureor dislocation. The mid and distal left femur appears intact withoutfracture. There is minimal degenerative change at the knee. The bones arediffusely demineralized. The left tibia and fibula appear intact without fracture or dislocation.Joint spaces at the knee and ankle appear well-maintained. IMPRESSION: Impression: 1.No acute osseous abnormality. 2.Moderate osteoarthritis of both hips. 3.Severe diffuse pelvic and trochanteric enthesopathy. 4.Dilated small bowel loops in the central abdomen. Correlate for ileus orobstruction. Electronically Signed: Homero Perez MD 07/15/2025 12:01 AM EDT Workstation ID: [id number] us Carson Colvin MD [facility] DIAGNOSTIC IMAGING ORDERA BLES Final Result * XR Chest 1 View (2025 11:52 PM EDT) Anatomical Region Laterality Modality Body N/A Radiographic Laura ging 2025 11:5 8 PM EDT Impressions 2025 11:58 PM EDT Impression: 1.No acute cardiopulmonary abnormality. 2.Stable destructive lytic lesion at the right second rib. Electronically Signed: Homero Perez MD 2025 11:58 PM EDT Workstation ID: [id number] Narrative 2025 11:58 PM EDT XR CHEST 1 VW Date of Exam: 2025 11:02 PM EDT Indication: fall. Comparison: Chest CT 06/10/2025. Findings: Stable right chest port. There is no pneumothorax, pleural effusion or focal airspace consolidation. Heart size and pulmonary vasculature appear within normal limits. Stable destructive lytic lesion noted at the right second rib. No acute osseous abnormality. Procedure Note Homero Perez MD - 07/15/2025 XR CHEST 1 VW Date of Exam: 2025 11:02 PM EDT Indication: fall. Comparison: Chest CT 06/10/2025. Findings: Stable right chest port. There is no pneumothorax, pleural effusion orfocal airspace consolidation. Heart size and pulmonary vasculature appearwithin normal limits. Stable destructive lytic lesion noted at the rightsecond rib. No acute osseous abnormality. IMPRESSION: Impression: 1.No acute cardiopulmonary abnormality. 2.Stable destructive lytic lesion at the right second rib. Electronically Signed: Homero Perez MD 2025 11:58 PM EDT Workstation ID: [id number] us Carson Colvin MD [facility] DIAGNOSTIC IMAGING ORDERA BLES Final Result * MRI Brain With & Without Contrast (2025 11:16 PM EDT) Anatomical Region Laterality Modality Head, Neck N/A Magnetic Resonan ce 2025 11:3 5 PM EDT Impressions 2025 11:45 PM EDT Impression: 1.Multiple enlarging intracranial metastasis. There is increased edema associated with the left cerebellar metastasis resulting in mild mass effect without midline shift or ventricular effacement. 2.Abnormal high T2 signal within the central cervical spinal cord at the level of the dens. This does raise concern for a more distal cord metastasis or compression. Recommend cervical MRI with IV contrast. 3.Stable mild chronic small vessel ischemic change. 4.Left frontal sinus mucosal disease and left mastoid effusion. Electronically Signed: Homero Perez MD 2025 11:45 PM EDT Workstation ID: [id number] Narrative 2025 11:45 PM EDT MRI BRAIN W WO CONTRAST Date of Exam: 2025 11:14 PM EDT Indication: fall, LLE pain/weakness, eval fxr and metastasis. Comparison: Head CT 2025. Technique: Routine multiplanar/multisequence sequence images of the brain were obtained before and after the uneventful administration of Vueway. Findings: There is no diffusion restriction to suggest an acute infarct. Midline structures appear intact. Calvarial and superficial soft tissue signal is within normal limits. The temporomandibular joints and parotid glands appear symmetric. Dentition appears unremarkable. There are multiple enlarging intracranial metastasis. This includes a nodular metastasis that appears dural based in the anterior right frontal region on postcontrast 3D T1 axial image 107 measuring 10 mm with an adjacent nodular component laterally measuring 5 mm. Enlarging right frontal periventricular metastasis measuring 6 mm on image 113 of the same series. There is progressive nodular enhancement within the superior left of midline cerebellum on axial image 52 measuring 7 mm diameter. Enlarging right occipital metastasis measuring 13 mm on image 64. Enlarging left cerebellar metastasis measuring up to 18 mm diameter on image 43. Progressive enhancement in the lateral right cerebellum measuring 9 mm on image 46. Paramedian right cerebellar metastasis measuring 10 mm on image 32 is also progressive. No definite new metastatic lesions. There is increased edema associated with the left cerebellar lesion resulting in mild mass effect without midline shift or ventricular effacement. There is stable edema signal within the brain matter at the right occipital metastasis. There is otherwise stable mild chronic small vessel ischemic change. There is no herniation. No evidence of acute or chronic intracranial hemorrhage. No diffusion restriction to suggest acute infarct. Orbits are symmetric. There is left frontal sinus mucosal disease and there is a left mastoid effusion. The major arterial flow voids appear intact. There is abnormal high T2 signal within the central cervical spinal cord at the level of the dens, which is seen on the last few images. This does raise concern for a more distal cord metastasis or compression. Recommend cervical MRI with IV contrast. Procedure Note Homero Perez MD - 2025 MRI BRAIN W WO CONTRAST Date of Exam: 2025 11:14 PM EDT Indication: fall, LLE pain/weakness, eval fxr and metastasis. Comparison: Head CT 2025. Technique: Routine multiplanar/multisequence sequence images of the brainwere obtained before and after the uneventful administration of Vueway. Findings: There is no diffusion restriction to suggest an acute infarct. Midlinestructures appear intact. Calvarial and superficial soft tissue signal iswithin normal limits. The temporomandibular joints and parotid glandsappear symmetric. Dentition appears unremarkable. There are multiple enlarging intracranial metastasis. This includes anodular metastasis that appears dural based in the anterior right frontalregion on postcontrast 3D T1 axial image 107 measuring 10 mm with anadjacent nodular component laterally measuring 5 mm. Enlarging right frontal periventricular metastasismeasuring 6 mm on image 113 of the same series. There is progressivenodular enhancement within the superior left of midline cerebellum onaxial image 52 measuring 7 mm diameter. Enlarging right occipital metastasis measuring 13 mm on image 64.Enlarging left cerebellar metastasis measuring up to 18 mm diameter onimage 43. Progressive enhancement in the lateral right cerebellummeasuring 9 mm on image 46. Paramedian right cerebellar metastasis measuring 10 mm on image 32 is also progressive. Nodefinite new metastatic lesions. There is increased edema associated withthe left cerebellar lesion resulting in mild mass effect without midlineshift or ventricular effacement. There is stable edema signal within the brain matter at the rightoccipital metastasis. There is otherwise stable mild chronic small vesselischemic change. There is no herniation. No evidence of acute or chronicintracranial hemorrhage. No diffusion restriction to suggest acute infarct. Orbits are symmetric. There is leftfrontal sinus mucosal disease and there is a left mastoid effusion. Themajor arterial flow voids appear intact. There is abnormal high T2 signal within the central cervical spinal cordat the level of the dens, which is seen on the last few images. This doesraise concern for a more distal cord metastasis or compression. Recommendcervical MRI with IV contrast. IMPRESSION: Impression: 1.Multiple enlarging intracranial metastasis. There is increased edemaassociated with the left cerebellar metastasis resulting in mild masseffect without midline shift or ventricular effacement. 2.Abnormal high T2 signal within the central cervical spinal cord at thelevel of the dens. This does raise concern for a more distal cordmetastasis or compression. Recommend cervical MRI with IV contrast. 3.Stable mild chronic small vessel ischemic change. 4.Left frontal sinus mucosal disease and left mastoid effusion. Electronically Signed: Homero Perez MD 2025 11:45 PM EDT Workstation ID: [id number] us Carson Colvin MD IMG MRI ORDERABLES Final Resu lt * MRI Lumbar Spine With & Without Contrast (2025 11:15 PM EDT) Anatomical Region Laterality Modality Spine, L-spine N/A Magnetic Resonan ce 07/15/2025 12:0 3 AM EDT Impressions 07/15/2025 12:09 AM EDT Impression: 1.Multiple osseous metastasis in the lumbar spine and right ilium. The majority of the metastasis appear to have decreased in size and appear less sclerotic, but the large enhancing metastasis in the T12 vertebral body and right 12th rib appears new from 2021. 2.Stable pathologic compression fracture at L4 with retropulsion of the posterior cortex resulting in high-grade spinal canal stenosis with compression of the cauda equina. 3.Moderate lumbar spondylosis with varying degrees of neuroforaminal and spinal canal narrowing as described. Electronically Signed: Homero Perez MD 07/15/2025 12:09 AM EDT Workstation ID: [id number] Narrative 07/15/2025 12:09 AM EDT MRI LUMBAR SPINE W WO CONTRAST Date of Exam: 2025 11:15 PM EDT Indication: eval cauda equina, mets, fxr. Comparison: CT lumbar 2025 and MR lumbar spine 12/17/2021. Technique: Routine multiplanar/multisequence sequence images of the lumbar spine were obtained before and after the uneventful administration of Vueway. Findings: There is redemonstration of an avidly enhancing metastasis occupying the right and posterior aspects of the T12 vertebral body extending into the right 12th rib and transverse process with associated bone destruction and soft tissue mass. There are multiple additional lumbar spinal metastasis that appear mixed signal intensity without significant enhancement. Metastatic lesions are noted at L3, L4, L5 and S1. There is stable posterior inferior endplate compression fracture at L4, which appears pathologic and is associated with an intravertebral disc herniation. This results in retropulsion of the posterior cortex up to 6 mm and results in high-grade spinal canal stenosis with compression of the cauda equina. There is an additional metastasis in the right ilium. Compared with the MRI dated 12/17/2021, the majority of the metastasis appear to have decreased in size and appear less sclerotic, but the large enhancing metastasis in the T12 vertebral body and right 12th rib appears new from 2021. There is no new fracture. There is mild to moderate diffuse disc space narrowing and mild to moderate diffuse facet arthritis most pronounced in the lower lumbar spine. At L1-L2, there is concentric disc bulge and mild facet and ligamentum flavum hypertrophy without neuroforaminal or spinal canal compromise. At L2-L3, there is concentric disc bulge and mild facet and ligamentum flavum hypertrophy resulting in mild bilateral neuroforaminal narrowing and mild narrowing of the spinal canal. At L3-L4, there are similar degenerative changes with mild to moderate bilateral neuroforaminal narrowing and mild narrowing of the spinal canal. At L4-L5, there is concentric disc bulge and retropulsion as discussed above with moderate facet and ligamentum flavum hypertrophy resulting in severe narrowing of the spinal canal with compression of the cauda equina and moderate bilateral neuroforaminal narrowing. At L5-S1, there is concentric disc bulge and mild facet arthropathy contributing to mild bilateral neuroforaminal narrowing. There is preservation of the posterior paraspinal musculature. There is a hypointense structure in the inferior left kidney likely corresponding to a large kidney stone. Procedure Note Homero Perez MD - 07/15/2025 MRI LUMBAR SPINE W WO CONTRAST Date of Exam: 2025 11:15 PM EDT Indication: eval cauda equina, mets, fxr. Comparison: CT lumbar 2025 and MR lumbar spine 12/17/2021. Technique: Routine multiplanar/multisequence sequence images of thelumbar spine were obtained before and after the uneventful administrationof Vueway. Findings: There is redemonstration of an avidly enhancing metastasis occupying theright and posterior aspects of the T12 vertebral body extending into theright 12th rib and transverse process with associated bone destruction andsoft tissue mass. There are multiple additional lumbar spinal metastasis that appear mixed signalintensity without significant enhancement. Metastatic lesions are noted atL3, L4, L5 and S1. There is stable posterior inferior endplate compressionfracture at L4, which appears pathologic and is associated with an intravertebral disc herniation. Thisresults in retropulsion of the posterior cortex up to 6 mm and results inhigh-grade spinal canal stenosis with compression of the cauda equina.There is an additional metastasis in the right ilium. Compared with the MRI dated 12/17/2021, the majority ofthe metastasis appear to have decreased in size and appear less sclerotic,but the large enhancing metastasis in the T12 vertebral body and [id number] rib appears new from 2021. There is no new fracture. There is mild to moderate diffuse disc spacenarrowing and mild to moderate diffuse facet arthritis most pronounced inthe lower lumbar spine. At L1-L2, there is concentric disc bulge and mildfacet and ligamentum flavum hypertrophy without neuroforaminal or spinal canal compromise. At L2-L3,there is concentric disc bulge and mild facet and ligamentum flavumhypertrophy resulting in mild bilateral neuroforaminal narrowing and mildnarrowing of the spinal canal. At L3-L4, there are similar degenerative changes with mild to moderatebilateral neuroforaminal narrowing and mild narrowing of the spinal canal.At L4-L5, there is concentric disc bulge and retropulsion as discussedabove with moderate facet and ligamentum flavum hypertrophy resulting in severe narrowing of the spinal canal withcompression of the cauda equina and moderate bilateral neuroforaminalnarrowing. At L5-S1, there is concentric disc bulge and mild facetarthropathy contributing to mild bilateral neuroforaminal narrowing. There is preservation of the posteriorparaspinal musculature. There is a hypointense structure in the inferiorleft kidney likely corresponding to a large kidney stone. IMPRESSION: Impression: 1.Multiple osseous metastasis in the lumbar spine and right ilium. Themajority of the metastasis appear to have decreased in size and appearless sclerotic, but the large enhancing metastasis in the T12 vertebralbody and right 12th rib appears new from 2021. 2.Stable pathologic compression fracture at L4 with retropulsion of theposterior cortex resulting in high-grade spinal canal stenosis withcompression of the cauda equina. 3.Moderate lumbar spondylosis with varying degrees of neuroforaminal andspinal canal narrowing as described. Electronically Signed: Homero Perez MD 07/15/2025 12:09 AM EDT Workstation ID: [id number] Carson Colvin MD IMG MRI ORDERABLES Final Resu lt * (ABNORMAL) Urinalysis, Microscopic Only - Urine, Clean Catch (2025 10:43 PM EDT) RBC, UA 3-5(A) None Seen, 0-2 /HPF 2025 11:09 PM EDT [facility] WBC, UA 0-2 None Seen, 0-2 /HPF 2025 11:09 PM EDT [facility] Bacteria, UA None Seen None Seen /HPF 2025 11:09 PM EDT [facility] Squamous Epithelial Cells, UA 0-2 None Seen, 0-2 /HPF 2025 11:09 PM EDT [facility] Hyaline Casts, UA None Seen None Seen /LPF 2025 11:09 PM EDT [facility] Methodology Automated Microscopy 2025 11:09 PM EDT [facility] Urine Urine specimen obtained by clean catch procedure / Unknown Collection / Unknown 2025 10:43 PM EDT 2025 11:00 PM EDT Carson Colvin MD URINE ORDERABLES Final Result [facility]
[id number] [place] [id number], * (ABNORMAL) Urinalysis With Microscopic If Indicated (No Culture) - Urine, Clean Catch (2025 10:43 PM EDT) Color, UA Yellow Yellow, Straw 2025 11:06 PM EDT [facility] Appearance, UA Clear Clear 2025 11:06 PM EDT [facility] pH, UA 7.5 5.0 - 8.0 2025 11:06 PM EDT [facility] Specific [place], UA 1.011 1.005 - 1.030 2025 11:06 PM EDT [facility] Glucose, UA Negative Negative 2025 11:06 PM EDT [facility] Ketones, UA Negative Negative 2025 11:06 PM EDT [facility] Bilirubin, UA Negative Negative 2025 11:06 PM EDT [facility] Blood, UA Small (1+)(A) Negative 2025 11:06 PM EDT [facility] Protein, UA 30 mg/dL (1+)(A) Negative 2025 11:06 PM EDT [facility] Leuk Esterase, UA Trace(A) Negative 2025 11:06 PM EDT [facility] Nitrite, UA Negative Negative 2025 11:06 PM EDT [facility] Urobilinogen, UA 0.2 E.U./dL 0.2 - 1.0 E.U./dL 2025 11:06 PM EDT [facility] Urine Urine specimen obtained by clean catch procedure / Unknown Collection / Unknown 2025 10:43 PM EDT 2025 11:00 PM EDT Carson Colvin MD URINE ORDERABLES Final Result [facility]
[id number] [place] [id number], * (ABNORMAL) CBC Auto Differential (2025 10:06 PM EDT) WBC 4.79 3.40 - 10.80 10*3/mm3 2025 11:17 PM EDT [facility] RBC 3.17(L) 3.77 - 5.28 10*6/mm3 2025 11:17 PM EDT [facility] Hemoglobin 8.1(L) 12.0 - 15.9 g/dL 2025 11:17 PM EDT [facility] Hematocrit 26.7(L) 34.0 - 46.6 % 2025 11:17 PM EDT [facility] MCV 84.2 79.0 - 97.0 fL 2025 11:17 PM EDT [facility] MCH 25.6(L) 26.6 - 33.0 pg 2025 11:17 PM EDT [facility] MCHC 30.3(L) 31.5 - 35.7 g/dL 2025 11:17 PM EDT [facility] RDW 16.8(H) 12.3 - 15.4 % 2025 11:17 PM EDT [facility] RDW-SD 51.1 37.0 - 54.0 fl 2025 11:17 PM EDT [facility] MPV 9.5 6.0 - 12.0 fL 2025 11:17 PM EDT [facility] Platelets 90(L) 140 - 450 10*3/mm3 2025 11:17 PM EDT [facility] Neutrophil % 81.4(H) 42.7 - 76.0 % 2025 11:17 PM EDT [facility] Lymphocyte % 9.2(L) 19.6 - 45.3 % 2025 11:17 PM EDT [facility] Monocyte % 8.4 5.0 - 12.0 % 2025 11:17 PM EDT [facility] Eosinophil % 0.4 0.3 - 6.2 % 2025 11:17 PM EDT [facility] Basophil % 0.2 0.0 - 1.5 % 2025 11:17 PM EDT [facility] Immature Grans % 0.4 0.0 - 0.5 % 2025 11:17 PM EDT [facility] Neutrophils, Absolute 3.90 1.70 - 7.00 10*3/mm3 2025 11:17 PM EDT [facility] Lymphocytes, Absolute 0.44(L) 0.70 - 3.10 10*3/mm3 2025 11:17 PM EDT [facility] Monocytes, Absolute 0.40 0.10 - 0.90 10*3/mm3 2025 11:17 PM EDT [facility] Eosinophils, Absolute 0.02 0.00 - 0.40 10*3/mm3 2025 11:17 PM EDT [facility] Basophils, Absolute 0.01 0.00 - 0.20 10*3/mm3 2025 11:17 PM EDT [facility] Immature Grans, Absolute 0.02 0.00 - 0.05 10*3/mm3 2025 11:17 PM EDT [facility] nRBC 0.0 0.0 - 0.2 /100 WBC 2025 11:17 PM [facility] Blood Venipuncture / Unknown 2025 10:06 PM EDT 2025 11:09 PM EDT Carson Colvin MD LAB BLOOD ORDERABLES Final Re sult [facility]
[id number] [place] [id number], * (ABNORMAL) Comprehensive Metabolic Panel (2025 10:06 PM EDT) Glucose 133(H) 65 - 99 mg/dL 2025 10:39 PM EDT [facility] BUN 27.0(H) 8.0 - 23.0 mg/dL 2025 10:39 PM EDT [facility] Creatinine 1.66(H) 0.57 - 1.00 mg/dL 2025 10:39 PM EDT [facility] Sodium 142 136 - 145 mmol/L 2025 10:39 PM EDT [facility] Potassium 4.3 3.5 - 5.2 mmol/L 2025 10:39 PM EDT [facility] Chloride 103 98 - 107 mmol/L 2025 10:39 PM EDT [facility] CO2 25.5 22.0 - 29.0 mmol/L 2025 10:39 PM EDT [facility] Calcium 9.8 8.6 - 10.5 mg/dL 2025 10:39 PM EDT [facility] Total Protein 7.3 6.0 - 8.5 g/dL 2025 10:39 PM EDT [facility] Albumin 4.0 3.5 - 5.2 g/dL 2025 10:39 PM EDT [facility] ALT (SGPT) 28 1 - 33 U/L 2025 10:39 PM EDT [facility] AST (SGOT) 40(H) 1 - 32 U/L 2025 10:39 PM EDT [facility] Alkaline Phosphatase 151(H) 39 - 117 U/L 2025 10:39 PM EDT [facility] Total Bilirubin 0.4 0.0 - 1.2 mg/dL 2025 10:39 PM EDT [facility] Globulin 3.3 gm/dL 2025 10:39 PM EDT [facility] Comment:Calculated Result A/G Ratio 1.2 g/dL 2025 10:39 PM EDT [facility] BUN/Creatinine Ratio 16.3 7.0 - 25.0 2025 10:39 PM EDT [facility] Anion Gap 13.5 5.0 - 15.0 mmol/L 2025 10:39 PM EDT [facility] eGFR 34.3(L) >60.0 mL/min/1.7 3 2025 10:39 PM EDT [facility] Blood Venipuncture / Unknown 2025 10:06 PM EDT 2025 10:17 PM EDT [facility] - 2025 10:39 PM EDT GFR Categories in Chronic Kidney [...] does not include race as a factor us Carson Colvin MD LAB BLOOD ORDERABLES Final Re sult [facility]
[address] [place] [address], * CT Lumbar Spine Without Contrast (2025 9:52 PM EDT) Anatomical Region Laterality Modality L-spine N/A Computed Tomogra phy 2025 9:54 PM EDT Impressions 2025 10:10 PM EDT Impression: 1. 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 No new suspicious pathologic fracture. 2. Similar-appearing probable old pathologic fracture at L4 with bony retropulsion resulting in possible high-grade central spinal canal stenosis. This could be assessed by MRI as clinically indicated. 3. Similar hypodense lesions in the right occipital lobe and left cerebellum, in keeping with intracranial metastases noted on prior contrasted MRI comparisons. 4. Stable small pulmonary nodules. Stable splenomegaly. No enlarging adenopathy to suggest disease progression. 5. Other chronic/ancillary findings as above. Electronically Signed: Galen Hawley MD 2025 10:10 PM EDT Workstation ID: [id number] Narrative 2025 10:[address] HEAD WO CONTRAST, CT LUMBAR SPINE WO CONTRAST, CT THORACIC SPINE WO CONTRAST, CT CERVICAL SPINE WO CONTRAST Date of Exam: 2025 9:24 PM EDT Indication: fall, LLE pain/weakness, eval fxr and metastasis. Comparison: Brain MRI 06/10/2025, CT chest abdomen pelvis 06/10/2025, CT soft tissue neck 11/27/2024 Technique: Axial CT images were obtained of the head and total spine without contrast administration. Automated exposure control and iterative construction methods were used. Findings: Head CT: Vague hypodensity in the right occipital lobe and left cerebellar hemisphere unchanged from prior MRI. These are in keeping with known intracranial metastases. Negative for large territory infarct, acute intracranial hemorrhage, midline shift or hydrocephalus. Mild periventricular hypodensity favoring sequelae of chronic microvascular ischemic change. No large extra-axial fluid collection. Orbits are symmetric. No obstructive sinus disease. No large mastoid effusion. No aggressive bone lesion or displaced fracture. Cervical spine: Osseous metastases without significant change from prior CT neck comparison. No visualized displaced fracture, vertebral body height loss or malalignment. Minimal degenerative disc disease. Overall mild facet arthropathy. Negative for high-grade central spinal canal stenosis. Severe right neuroforaminal stenosis C3-C4 similar to prior, other show low-grade stenosis. Similar heterogeneous enlargement of the right thyroid gland outpatient thyroid ultrasound could be considered. Partially imaged right IJ central catheter. No suspicious adenopathy in the neck. Thoracic spine: Heterogeneous mixed lucent and sclerotic metastases without significant change from prior exam. Mild chronic superior endplate height loss of T1 and T10. There is multilevel degenerative change without high-grade central spinal canal stenosis. Severe neuroforaminal stenosis on the left at T10-T11 and T11-T12 similar to prior exam. Heterogeneous more expansile rib lesions noted most significant involving the second, right posterior ninth and right posterior 12th ribs. Few chronic appearing nondisplaced rib fractures stable from prior pulse representing prior pathologic fractures. Right IJ central catheter terminates near the cavoatrial junction. No suspicious mediastinal or hilar adenopathy. Few pulmonary nodules measuring up to 6 mm left upper lobe image 54 series 2 unchanged from 06/10/2025 CT comparison. Splenomegaly measuring up to 13 cm in maximum AP dimension without significant change from prior exam. Lumbar spine: Mixed lucent and sclerotic metastases without significant change from prior exam. Suspect old pathologic fracture with bony retropulsion at L4 by up to 4 mm image 33 series 5 unchanged from 06/10/2025 CT comparison. This may result in high-grade central spinal canal stenosis similar to prior exam. No visualized displaced acute fracture, vertebral body height loss or traumatic malalignment of the lumbar spine. Multilevel degenerative disc disease and facet arthropathy with probably mild to moderate central spinal canal stenosis L2-L3 and L3-L4. Varying degrees of neuroforaminal stenosis up to moderate severity bilaterally L3-L4, severe right moderate to severe left L4-L5 and moderate bilateral L5-S1 probably similar to prior comparison. No visualized retroperitoneal adenopathy. Few nonobstructing renal calculi largest in the left inferior pole measuring up to 1.3 cm unchanged from prior exam. Procedure Note Galen Hawley MD - 2025 CT HEAD WO CONTRAST, CT LUMBAR SPINE WO CONTRAST, CT THORACIC SPINE WOCONTRAST, CT CERVICAL SPINE WO CONTRAST Date of Exam: 2025 9:24 PM EDT Indication: fall, LLE pain/weakness, eval fxr and metastasis. Comparison: Brain MRI 06/10/2025, CT chest abdomen pelvis 06/10/2025, CTsoft tissue neck 11/27/2024 Technique: Axial CT images were obtained of the head and total spinewithout contrast administration. Automated exposure control and iterativeconstruction methods were used. Findings: Head CT: Vague hypodensity in the right occipital lobe and left cerebellarhemisphere unchanged from prior MRI. These are in keeping with knownintracranial metastases. Negative for large territory infarct, acuteintracranial hemorrhage, midline shift or hydrocephalus. Mild periventricular hypodensity favoring sequelae ofchronic microvascular ischemic change. No large extra-axial fluidcollection. Orbits are symmetric. No obstructive sinus disease. No largemastoid effusion. No aggressive bone lesion or displaced fracture. Cervical spine: Osseous metastases without significant change from priorCT neck comparison. No visualized displaced fracture, vertebral bodyheight loss or malalignment. Minimal degenerative disc disease. Overallmild facet arthropathy. Negative for high-grade central spinal canal stenosis. Severe right neuroforaminalstenosis C3-C4 similar to prior, other show low-grade stenosis. Similarheterogeneous enlargement of the right thyroid gland outpatient thyroidultrasound could be considered. Partially imaged right IJ central catheter. No suspicious adenopathy inthe neck. Thoracic spine: Heterogeneous mixed lucent and sclerotic metastaseswithout significant change from prior exam. Mild chronic superior endplateheight loss of T1 and T10. There is multilevel degenerative change withouthigh-grade central spinal canal stenosis. Severe neuroforaminal stenosis on the left at T10-T11 [id number] similar to prior exam. Heterogeneous more expansile rib lesionsnoted most significant involving the second, right posterior ninth andright posterior 12th ribs. Few chronic appearing nondisplaced rib fractures stable from prior pulse representingprior pathologic fractures. Right IJ central catheter terminates near thecavoatrial junction. No suspicious mediastinal or hilar adenopathy. Fewpulmonary nodules measuring up to 6 mm left upper lobe image 54 series 2 unchanged from 06/10/2025 CTcomparison. Splenomegaly measuring up to 13 cm in maximum AP dimensionwithout significant change from prior exam. Lumbar spine: Mixed lucent and sclerotic metastases without significantchange from prior exam. Suspect old pathologic fracture with bonyretropulsion at L4 by up to 4 mm image 33 series 5 unchanged from06/10/2025 CT comparison. This may result in high-grade central spinal canal stenosis similar to prior exam. Novisualized displaced acute fracture, vertebral body height loss ortraumatic malalignment of the lumbar spine. Multilevel degenerative discdisease and facet arthropathy with probably mild to moderate central spinal canal stenosis L2-L3 and L3-L4. Varyingdegrees of neuroforaminal stenosis up to moderate severity bilaterallyL3-L4, severe right moderate to severe left L4-L5 and moderate bilateralL5-S1 probably similar to prior comparison. No visualized retroperitoneal adenopathy. Few nonobstructingrenal calculi largest in the left inferior pole measuring up to 1.3 cmunchanged from prior exam. IMPRESSION: Impression: 1. Grossly stable mixed lucent and sclerotic osseous metastases detailedabove compared to prior CT imaging comparisons. No new suspiciouspathologic fracture. 2. Similar-appearing probable old pathologic fracture at L4 with bonyretropulsion resulting in possible high-grade central spinal canalstenosis. This could be assessed by MRI as clinically indicated. 3. Similar hypodense lesions in the right occipital lobe and leftcerebellum, in keeping with intracranial metastases noted on priorcontrasted MRI comparisons. 4. Stable small pulmonary nodules. Stable splenomegaly. No enlargingadenopathy to suggest disease progression. 5. Other chronic/ancillary findings as above. Electronically Signed: Galen Hawley MD 2025 10:10 PM EDT Workstation ID: [id number] us Carson Colvin MD IMG CT ORDERABLES Final Resul t * CT Thoracic Spine Without Contrast (2025 9:52 PM EDT) Anatomical Region Laterality Modality T-spine N/A Computed Tomogra phy 2025 9:54 PM EDT Impressions 2025 10:10 PM EDT Impression: 1. 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 No new suspicious pathologic fracture. 2. Similar-appearing probable old pathologic fracture at L4 with bony retropulsion resulting in possible high-grade central spinal canal stenosis. This could be assessed by MRI as clinically indicated. 3. Similar hypodense lesions in the right occipital lobe and left cerebellum, in keeping with intracranial metastases noted on prior contrasted MRI comparisons. 4. Stable small pulmonary nodules. Stable splenomegaly. No enlarging adenopathy to suggest disease progression. 5. Other chronic/ancillary findings as above. Electronically Signed: Galen Hawley MD 2025 10:10 PM EDT Workstation ID: [id number] Narrative 2025 10:[address] HEAD WO CONTRAST, CT LUMBAR SPINE WO CONTRAST, CT THORACIC SPINE WO CONTRAST, CT CERVICAL SPINE WO CONTRAST Date of Exam: 2025 9:24 PM EDT Indication: fall, LLE pain/weakness, eval fxr and metastasis. Comparison: Brain MRI 06/10/2025, CT chest abdomen pelvis 06/10/2025, CT soft tissue neck 11/27/2024 Technique: Axial CT images were obtained of the head and total spine without contrast administration. Automated exposure control and iterative construction methods were used. Findings: Head CT: Vague hypodensity in the right occipital lobe and left cerebellar hemisphere unchanged from prior MRI. These are in keeping with known intracranial metastases. Negative for large territory infarct, acute intracranial hemorrhage, midline shift or hydrocephalus. Mild periventricular hypodensity favoring sequelae of chronic microvascular ischemic change. No large extra-axial fluid collection. Orbits are symmetric. No obstructive sinus disease. No large mastoid effusion. No aggressive bone lesion or displaced fracture. Cervical spine: Osseous metastases without significant change from prior CT neck comparison. No visualized displaced fracture, vertebral body height loss or malalignment. Minimal degenerative disc disease. Overall mild facet arthropathy. Negative for high-grade central spinal canal stenosis. Severe right neuroforaminal stenosis C3-C4 similar to prior, other show low-grade stenosis. Similar heterogeneous enlargement of the right thyroid gland outpatient thyroid ultrasound could be considered. Partially imaged right IJ central catheter. No suspicious adenopathy in the neck. Thoracic spine: Heterogeneous mixed lucent and sclerotic metastases without significant change from prior exam. Mild chronic superior endplate height loss of T1 and T10. There is multilevel degenerative change without high-grade central spinal canal stenosis. Severe neuroforaminal stenosis on the left at T10-T11 and T11-T12 similar to prior exam. Heterogeneous more expansile rib lesions noted most significant involving the second, right posterior ninth and right posterior 12th ribs. Few chronic appearing nondisplaced rib fractures stable from prior pulse representing prior pathologic fractures. Right IJ central catheter terminates near the cavoatrial junction. No suspicious mediastinal or hilar adenopathy. Few pulmonary nodules measuring up to 6 mm left upper lobe image 54 series 2 unchanged from 06/10/2025 CT comparison. Splenomegaly measuring up to 13 cm in maximum AP dimension without significant change from prior exam. Lumbar spine: Mixed lucent and sclerotic metastases without significant change from prior exam. Suspect old pathologic fracture with bony retropulsion at L4 by up to 4 mm image 33 series 5 unchanged from 06/10/2025 CT comparison. This may result in high-grade central spinal canal stenosis similar to prior exam. No visualized displaced acute fracture, vertebral body height loss or traumatic malalignment of the lumbar spine. Multilevel degenerative disc disease and facet arthropathy with probably mild to moderate central spinal canal stenosis L2-L3 and L3-L4. Varying degrees of neuroforaminal stenosis up to moderate severity bilaterally L3-L4, severe right moderate to severe left L4-L5 and moderate bilateral L5-S1 probably similar to prior comparison. No visualized retroperitoneal adenopathy. Few nonobstructing renal calculi largest in the left inferior pole measuring up to 1.3 cm unchanged from prior exam. Procedure Note Galen Hawley MD - 2025 CT HEAD WO CONTRAST, CT LUMBAR SPINE WO CONTRAST, CT THORACIC SPINE WOCONTRAST, CT CERVICAL SPINE WO CONTRAST Date of Exam: 2025 9:24 PM EDT Indication: fall, LLE pain/weakness, eval fxr and metastasis. Comparison: Brain MRI 06/10/2025, CT chest abdomen pelvis 06/10/2025, CTsoft tissue neck 11/27/2024 Technique: Axial CT images were obtained of the head and total spinewithout contrast administration. Automated exposure control and iterativeconstruction methods were used. Findings: Head CT: Vague hypodensity in the right occipital lobe and left cerebellarhemisphere unchanged from prior MRI. These are in keeping with knownintracranial metastases. Negative for large territory infarct, acuteintracranial hemorrhage, midline shift or hydrocephalus. Mild periventricular hypodensity favoring sequelae ofchronic microvascular ischemic change. No large extra-axial fluidcollection. Orbits are symmetric. No obstructive sinus disease. No largemastoid effusion. No aggressive bone lesion or displaced fracture. Cervical spine: Osseous metastases without significant change from priorCT neck comparison. No visualized displaced fracture, vertebral bodyheight loss or malalignment. Minimal degenerative disc disease. Overallmild facet arthropathy. Negative for high-grade central spinal canal stenosis. Severe right neuroforaminalstenosis C3-C4 similar to prior, other show low-grade stenosis. Similarheterogeneous enlargement of the right thyroid gland outpatient thyroidultrasound could be considered. Partially imaged right IJ central catheter. No suspicious adenopathy inthe neck. Thoracic spine: Heterogeneous mixed lucent and sclerotic metastaseswithout significant change from prior exam. Mild chronic superior endplateheight loss of T1 and T10. There is multilevel degenerative change withouthigh-grade central spinal canal stenosis. Severe neuroforaminal stenosis on the left at T10-T11 [id number] similar to prior exam. Heterogeneous more expansile rib lesionsnoted most significant involving the second, right posterior ninth andright posterior 12th ribs. Few chronic appearing nondisplaced rib fractures stable from prior pulse representingprior pathologic fractures. Right IJ central catheter terminates near thecavoatrial junction. No suspicious mediastinal or hilar adenopathy. Fewpulmonary nodules measuring up to 6 mm left upper lobe image 54 series 2 unchanged from 06/10/2025 CTcomparison. Splenomegaly measuring up to 13 cm in maximum AP dimensionwithout significant change from prior exam. Lumbar spine: Mixed lucent and sclerotic metastases without significantchange from prior exam. Suspect old pathologic fracture with bonyretropulsion at L4 by up to 4 mm image 33 series 5 unchanged from06/10/2025 CT comparison. This may result in high-grade central spinal canal stenosis similar to prior exam. Novisualized displaced acute fracture, vertebral body height loss ortraumatic malalignment of the lumbar spine. Multilevel degenerative discdisease and facet arthropathy with probably mild to moderate central spinal canal stenosis L2-L3 and L3-L4. Varyingdegrees of neuroforaminal stenosis up to moderate severity bilaterallyL3-L4, severe right moderate to severe left L4-L5 and moderate bilateralL5-S1 probably similar to prior comparison. No visualized retroperitoneal adenopathy. Few nonobstructingrenal calculi largest in the left inferior pole measuring up to 1.3 cmunchanged from prior exam. IMPRESSION: Impression: 1. Grossly stable mixed lucent and sclerotic osseous metastases detailedabove compared to prior CT imaging comparisons. No new suspiciouspathologic fracture. 2. Similar-appearing probable old pathologic fracture at L4 with bonyretropulsion resulting in possible high-grade central spinal canalstenosis. This could be assessed by MRI as clinically indicated. 3. Similar hypodense lesions in the right occipital lobe and leftcerebellum, in keeping with intracranial metastases noted on priorcontrasted MRI comparisons. 4. Stable small pulmonary nodules. Stable splenomegaly. No enlargingadenopathy to suggest disease progression. 5. Other chronic/ancillary findings as above. Electronically Signed: Galen Hawley MD 2025 10:10 PM EDT Workstation ID: [id number] us Carson Colvin MD IMG CT ORDERABLES Final Resul t * CT Cervical Spine Without Contrast (2025 9:52 PM EDT) Anatomical Region Laterality Modality C-spine N/A Computed Tomogra phy 2025 9:54 PM EDT Impressions 2025 10:10 PM EDT Impression: 1. 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 No new suspicious pathologic fracture. 2. Similar-appearing probable old pathologic fracture at L4 with bony retropulsion resulting in possible high-grade central spinal canal stenosis. This could be assessed by MRI as clinically indicated. 3. Similar hypodense lesions in the right occipital lobe and left cerebellum, in keeping with intracranial metastases noted on prior contrasted MRI comparisons. 4. Stable small pulmonary nodules. Stable splenomegaly. No enlarging adenopathy to suggest disease progression. 5. Other chronic/ancillary findings as above. Electronically Signed: Galen Hawley MD 2025 10:10 PM EDT Workstation ID: [id number] Narrative 2025 10:[address] HEAD WO CONTRAST, CT LUMBAR SPINE WO CONTRAST, CT THORACIC SPINE WO CONTRAST, CT CERVICAL SPINE WO CONTRAST Date of Exam: 2025 9:24 PM EDT Indication: fall, LLE pain/weakness, eval fxr and metastasis. Comparison: Brain MRI 06/10/2025, CT chest abdomen pelvis 06/10/2025, CT soft tissue neck 11/27/2024 Technique: Axial CT images were obtained of the head and total spine without contrast administration. Automated exposure control and iterative construction methods were used. Findings: Head CT: Vague hypodensity in the right occipital lobe and left cerebellar hemisphere unchanged from prior MRI. These are in keeping with known intracranial metastases. Negative for large territory infarct, acute intracranial hemorrhage, midline shift or hydrocephalus. Mild periventricular hypodensity favoring sequelae of chronic microvascular ischemic change. No large extra-axial fluid collection. Orbits are symmetric. No obstructive sinus disease. No large mastoid effusion. No aggressive bone lesion or displaced fracture. Cervical spine: Osseous metastases without significant change from prior CT neck comparison. No visualized displaced fracture, vertebral body height loss or malalignment. Minimal degenerative disc disease. Overall mild facet arthropathy. Negative for high-grade central spinal canal stenosis. Severe right neuroforaminal stenosis C3-C4 similar to prior, other show low-grade stenosis. Similar heterogeneous enlargement of the right thyroid gland outpatient thyroid ultrasound could be considered. Partially imaged right IJ central catheter. No suspicious adenopathy in the neck. Thoracic spine: Heterogeneous mixed lucent and sclerotic metastases without significant change from prior exam. Mild chronic superior endplate height loss of T1 and T10. There is multilevel degenerative change without high-grade central spinal canal stenosis. Severe neuroforaminal stenosis on the left at T10-T11 and T11-T12 similar to prior exam. Heterogeneous more expansile rib lesions noted most significant involving the second, right posterior ninth and right posterior 12th ribs. Few chronic appearing nondisplaced rib fractures stable from prior pulse representing prior pathologic fractures. Right IJ central catheter terminates near the cavoatrial junction. No suspicious mediastinal or hilar adenopathy. Few pulmonary nodules measuring up to 6 mm left upper lobe image 54 series 2 unchanged from 06/10/2025 CT comparison. Splenomegaly measuring up to 13 cm in maximum AP dimension without significant change from prior exam. Lumbar spine: Mixed lucent and sclerotic metastases without significant change from prior exam. Suspect old pathologic fracture with bony retropulsion at L4 by up to 4 mm image 33 series 5 unchanged from 06/10/2025 CT comparison. This may result in high-grade central spinal canal stenosis similar to prior exam. No visualized displaced acute fracture, vertebral body height loss or traumatic malalignment of the lumbar spine. Multilevel degenerative disc disease and facet arthropathy with probably mild to moderate central spinal canal stenosis L2-L3 and L3-L4. Varying degrees of neuroforaminal stenosis up to moderate severity bilaterally L3-L4, severe right moderate to severe left L4-L5 and moderate bilateral L5-S1 probably similar to prior comparison. No visualized retroperitoneal adenopathy. Few nonobstructing renal calculi largest in the left inferior pole measuring up to 1.3 cm unchanged from prior exam. Procedure Note Galen Hawley MD - 2025 CT HEAD WO CONTRAST, CT LUMBAR SPINE WO CONTRAST, CT THORACIC SPINE WOCONTRAST, CT CERVICAL SPINE WO CONTRAST Date of Exam: 2025 9:24 PM EDT Indication: fall, LLE pain/weakness, eval fxr and metastasis. Comparison: Brain MRI 06/10/2025, CT chest abdomen pelvis 06/10/2025, CTsoft tissue neck 11/27/2024 Technique: Axial CT images were obtained of the head and total spinewithout contrast administration. Automated exposure control and iterativeconstruction methods were used. Findings: Head CT: Vague hypodensity in the right occipital lobe and left cerebellarhemisphere unchanged from prior MRI. These are in keeping with knownintracranial metastases. Negative for large territory infarct, acuteintracranial hemorrhage, midline shift or hydrocephalus. Mild periventricular hypodensity favoring sequelae ofchronic microvascular ischemic change. No large extra-axial fluidcollection. Orbits are symmetric. No obstructive sinus disease. No largemastoid effusion. No aggressive bone lesion or displaced fracture. Cervical spine: Osseous metastases without significant change from priorCT neck comparison. No visualized displaced fracture, vertebral bodyheight loss or malalignment. Minimal degenerative disc disease. Overallmild facet arthropathy. Negative for high-grade central spinal canal stenosis. Severe right neuroforaminalstenosis C3-C4 similar to prior, other show low-grade stenosis. Similarheterogeneous enlargement of the right thyroid gland outpatient thyroidultrasound could be considered. Partially imaged right IJ central catheter. No suspicious adenopathy inthe neck. Thoracic spine: Heterogeneous mixed lucent and sclerotic metastaseswithout significant change from prior exam. Mild chronic superior endplateheight loss of T1 and T10. There is multilevel degenerative change withouthigh-grade central spinal canal stenosis. Severe neuroforaminal stenosis on the left at T10-T11 [id number] similar to prior exam. Heterogeneous more expansile rib lesionsnoted most significant involving the second, right posterior ninth andright posterior 12th ribs. Few chronic appearing nondisplaced rib fractures stable from prior pulse representingprior pathologic fractures. Right IJ central catheter terminates near thecavoatrial junction. No suspicious mediastinal or hilar adenopathy. Fewpulmonary nodules measuring up to 6 mm left upper lobe image 54 series 2 unchanged from 06/10/2025 CTcomparison. Splenomegaly measuring up to 13 cm in maximum AP dimensionwithout significant change from prior exam. Lumbar spine: Mixed lucent and sclerotic metastases without significantchange from prior exam. Suspect old pathologic fracture with bonyretropulsion at L4 by up to 4 mm image 33 series 5 unchanged from06/10/2025 CT comparison. This may result in high-grade central spinal canal stenosis similar to prior exam. Novisualized displaced acute fracture, vertebral body height loss ortraumatic malalignment of the lumbar spine. Multilevel degenerative discdisease and facet arthropathy with probably mild to moderate central spinal canal stenosis L2-L3 and L3-L4. Varyingdegrees of neuroforaminal stenosis up to moderate severity bilaterallyL3-L4, severe right moderate to severe left L4-L5 and moderate bilateralL5-S1 probably similar to prior comparison. No visualized retroperitoneal adenopathy. Few nonobstructingrenal calculi largest in the left inferior pole measuring up to 1.3 cmunchanged from prior exam. IMPRESSION: Impression: 1. Grossly stable mixed lucent and sclerotic osseous metastases detailedabove compared to prior CT imaging comparisons. No new suspiciouspathologic fracture. 2. Similar-appearing probable old pathologic fracture at L4 with bonyretropulsion resulting in possible high-grade central spinal canalstenosis. This could be assessed by MRI as clinically indicated. 3. Similar hypodense lesions in the right occipital lobe and leftcerebellum, in keeping with intracranial metastases noted on priorcontrasted MRI comparisons. 4. Stable small pulmonary nodules. Stable splenomegaly. No enlargingadenopathy to suggest disease progression. 5. Other chronic/ancillary findings as above. Electronically Signed: Galen Hawley MD 2025 10:10 PM EDT Workstation ID: [id number] us Carson Colvin MD IMG CT ORDERABLES Final Resul t * CT Head Without Contrast (2025 9:52 PM EDT) Anatomical Region Laterality Modality Head N/A Computed Tomogra phy 2025 9:54 PM EDT Impressions 2025 10:10 PM EDT Impression: 1. 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 No new suspicious pathologic fracture. 2. Similar-appearing probable old pathologic fracture at L4 with bony retropulsion resulting in possible high-grade central spinal canal stenosis. This could be assessed by MRI as clinically indicated. 3. Similar hypodense lesions in the right occipital lobe and left cerebellum, in keeping with intracranial metastases noted on prior contrasted MRI comparisons. 4. Stable small pulmonary nodules. Stable splenomegaly. No enlarging adenopathy to suggest disease progression. 5. Other chronic/ancillary findings as above. Electronically Signed: Galen Hawley MD 2025 10:10 PM EDT Workstation ID: [id number] Narrative 2025 10:[address] HEAD WO CONTRAST, CT LUMBAR SPINE WO CONTRAST, CT THORACIC SPINE WO CONTRAST, CT CERVICAL SPINE WO CONTRAST Date of Exam: 2025 9:24 PM EDT Indication: fall, LLE pain/weakness, eval fxr and metastasis. Comparison: Brain MRI 06/10/2025, CT chest abdomen pelvis 06/10/2025, CT soft tissue neck 11/27/2024 Technique: Axial CT images were obtained of the head and total spine without contrast administration. Automated exposure control and iterative construction methods were used. Findings: Head CT: Vague hypodensity in the right occipital lobe and left cerebellar hemisphere unchanged from prior MRI. These are in keeping with known intracranial metastases. Negative for large territory infarct, acute intracranial hemorrhage, midline shift or hydrocephalus. Mild periventricular hypodensity favoring sequelae of chronic microvascular ischemic change. No large extra-axial fluid collection. Orbits are symmetric. No obstructive sinus disease. No large mastoid effusion. No aggressive bone lesion or displaced fracture. Cervical spine: Osseous metastases without significant change from prior CT neck comparison. No visualized displaced fracture, vertebral body height loss or malalignment. Minimal degenerative disc disease. Overall mild facet arthropathy. Negative for high-grade central spinal canal stenosis. Severe right neuroforaminal stenosis C3-C4 similar to prior, other show low-grade stenosis. Similar heterogeneous enlargement of the right thyroid gland outpatient thyroid ultrasound could be considered. Partially imaged right IJ central catheter. No suspicious adenopathy in the neck. Thoracic spine: Heterogeneous mixed lucent and sclerotic metastases without significant change from prior exam. Mild chronic superior endplate height loss of T1 and T10. There is multilevel degenerative change without high-grade central spinal canal stenosis. Severe neuroforaminal stenosis on the left at T10-T11 and T11-T12 similar to prior exam. Heterogeneous more expansile rib lesions noted most significant involving the second, right posterior ninth and right posterior 12th ribs. Few chronic appearing nondisplaced rib fractures stable from prior pulse representing prior pathologic fractures. Right IJ central catheter terminates near the cavoatrial junction. No suspicious mediastinal or hilar adenopathy. Few pulmonary nodules measuring up to 6 mm left upper lobe image 54 series 2 unchanged from 06/10/2025 CT comparison. Splenomegaly measuring up to 13 cm in maximum AP dimension without significant change from prior exam. Lumbar spine: Mixed lucent and sclerotic metastases without significant change from prior exam. Suspect old pathologic fracture with bony retropulsion at L4 by up to 4 mm image 33 series 5 unchanged from 06/10/2025 CT comparison. This may result in high-grade central spinal canal stenosis similar to prior exam. No visualized displaced acute fracture, vertebral body height loss or traumatic malalignment of the lumbar spine. Multilevel degenerative disc disease and facet arthropathy with probably mild to moderate central spinal canal stenosis L2-L3 and L3-L4. Varying degrees of neuroforaminal stenosis up to moderate severity bilaterally L3-L4, severe right moderate to severe left L4-L5 and moderate bilateral L5-S1 probably similar to prior comparison. No visualized retroperitoneal adenopathy. Few nonobstructing renal calculi largest in the left inferior pole measuring up to 1.3 cm unchanged from prior exam. Procedure Note Galen Hawley MD - 2025 CT HEAD WO CONTRAST, CT LUMBAR SPINE WO CONTRAST, CT THORACIC SPINE WOCONTRAST, CT CERVICAL SPINE WO CONTRAST Date of Exam: 2025 9:24 PM EDT Indication: fall, LLE pain/weakness, eval fxr and metastasis. Comparison: Brain MRI 06/10/2025, CT chest abdomen pelvis 06/10/2025, CTsoft tissue neck 11/27/2024 Technique: Axial CT images were obtained of the head and total spinewithout contrast administration. Automated exposure control and iterativeconstruction methods were used. Findings: Head CT: Vague hypodensity in the right occipital lobe and left cerebellarhemisphere unchanged from prior MRI. These are in keeping with knownintracranial metastases. Negative for large territory infarct, acuteintracranial hemorrhage, midline shift or hydrocephalus. Mild periventricular hypodensity favoring sequelae ofchronic microvascular ischemic change. No large extra-axial fluidcollection. Orbits are symmetric. No obstructive sinus disease. No largemastoid effusion. No aggressive bone lesion or displaced fracture. Cervical spine: Osseous metastases without significant change from priorCT neck comparison. No visualized displaced fracture, vertebral bodyheight loss or malalignment. Minimal degenerative disc disease. Overallmild facet arthropathy. Negative for high-grade central spinal canal stenosis. Severe right neuroforaminalstenosis C3-C4 similar to prior, other show low-grade stenosis. Similarheterogeneous enlargement of the right thyroid gland outpatient thyroidultrasound could be considered. Partially imaged right IJ central catheter. No suspicious adenopathy inthe neck. Thoracic spine: Heterogeneous mixed lucent and sclerotic metastaseswithout significant change from prior exam. Mild chronic superior endplateheight loss of T1 and T10. There is multilevel degenerative change withouthigh-grade central spinal canal stenosis. Severe neuroforaminal stenosis on the left at T10-T11 [id number] similar to prior exam. Heterogeneous more expansile rib lesionsnoted most significant involving the second, right posterior ninth andright posterior 12th ribs. Few chronic appearing nondisplaced rib fractures stable from prior pulse representingprior pathologic fractures. Right IJ central catheter terminates near thecavoatrial junction. No suspicious mediastinal or hilar adenopathy. Fewpulmonary nodules measuring up to 6 mm left upper lobe image 54 series 2 unchanged from 06/10/2025 CTcomparison. Splenomegaly measuring up to 13 cm in maximum AP dimensionwithout significant change from prior exam. Lumbar spine: Mixed lucent and sclerotic metastases without significantchange from prior exam. Suspect old pathologic fracture with bonyretropulsion at L4 by up to 4 mm image 33 series 5 unchanged from06/10/2025 CT comparison. This may result in high-grade central spinal canal stenosis similar to prior exam. Novisualized displaced acute fracture, vertebral body height loss ortraumatic malalignment of the lumbar spine. Multilevel degenerative discdisease and facet arthropathy with probably mild to moderate central spinal canal stenosis L2-L3 and L3-L4. Varyingdegrees of neuroforaminal stenosis up to moderate severity bilaterallyL3-L4, severe right moderate to severe left L4-L5 and moderate bilateralL5-S1 probably similar to prior comparison. No visualized retroperitoneal adenopathy. Few nonobstructingrenal calculi largest in the left inferior pole measuring up to 1.3 cmunchanged from prior exam. IMPRESSION: Impression: 1. Grossly stable mixed lucent and sclerotic osseous metastases detailedabove compared to prior CT imaging comparisons. No new suspiciouspathologic fracture. 2. Similar-appearing probable old pathologic fracture at L4 with bonyretropulsion resulting in possible high-grade central spinal canalstenosis. This could be assessed by MRI as clinically indicated. 3. Similar hypodense lesions in the right occipital lobe and leftcerebellum, in keeping with intracranial metastases noted on priorcontrasted MRI comparisons. 4. Stable small pulmonary nodules. Stable splenomegaly. No enlargingadenopathy to suggest disease progression. 5. Other chronic/ancillary findings as above. Electronically Signed: Galen Hawley MD 2025 10:10 PM EDT Workstation ID: [id number] us Carson Colvin MD IMG CT ORDERABLES Final Resul t documented in this encounter Visit Diagnoses Diagnosis Spinal cord mass- Primary Cauda equina syndrome Cauda equina syndrome without mention of neurogenic bladder Metastatic malignant neoplasm, unspecified site Adenocarcinoma of 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, estrogen receptor positive Carcinoma of breast metastatic to bone, unspecified laterality Falls Spinal cord mass Brain metastases Falls Anemia, chronic disease Anemia of other chronic disease Thrombocytopenia Unspecified thrombocytopenia Stage 3b chronic kidney disease Breast cancer metastasized to bone Moderate protein-calorie malnutrition documented in this encounter Admitting Diagnoses Diagnosis Cauda equina syndrome Cauda equina syndrome without mention of neurogenic bladder documented in this encounter Administered Medications Inactive Administered Medications - up to 3 most recent administrations Medication Order MAR Action Action Date Dose Rate Site acetaminophen (TYLENOL) tablet 1,000 mg 1,000 mg, Oral, Once, On Sat07/14/25 at 2133, For 1 dose, If given for fever, use fever parameter: fever greater than 100.4 F Based on patient request - if ordered for moderate or severe pain, provider allows for administration of a medication prescribed for a lower pain scale. Do not exceed 4 grams of acetaminophen in a 24 hr period. Max dose of 2gm for AST/ALT greater than 120 units/L. If given for pain, use the following pain scale: Mild Pain = Pain Score of 1-3, CPOT 1-2 Moderate Pain = Pain Score of 4-6, CPOT 3-4 Severe Pain = Pain Score of 7-10, CPOT 5-8 Given 2025 9:58 PM EDT 1,000 mg ALPRAZolam (XANAX) tablet 0.5 mg 0.5 mg, Oral, Every 8 Hours PRN, Anxiety, Agitation, Starting on Lissette 07/15/25 at 0202, For 5 days, (ZOFIA) Caution: Look alike/sound alike drug alert. Avoid grapefruit juice Given 07/15/2025 9:22 PM EDT 0.5 mg Given 07/15/2025 3:17 AM EDT 0.5 mg aluminum-magnesium hydroxide-simethicone (MAALOX MAX) 400-400-40 MG/5ML suspension 15 mL 15 mL, Oral, Every 6 Hours PRN, Heartburn, Starting on Lissette 07/15/25 at 0203, Maximum 60 mL in 24 hours. bisacodyl (DULCOLAX) EC tablet 5 mg 5 mg, Oral, Daily PRN, Constipation, Use if polyethylene glycol is ineffective, Starting on 07/19/25 at 1026, Use if no bowel movement after 12 hours. Swallow whole. Do not crush, split, or chew tablet. bisacodyl (DULCOLAX) suppository 10 mg 10 mg, Rectal, Daily PRN, Constipation, Use if bisacodyl oral is ineffective, Starting on 07/19/25 at 1026, Use if no bowel movement after 12 hours. Hold for diarrhea Calcium Replacement - Follow Nurse / BPA Driven Protocol Open Order & Select S Electrolyte Replacement Protocol Algorithm to View Details dexAMETHasone (DECADRON) injection 10 mg 10 mg, Intravenous, Once, On Sat07/14/25 at 2232, For 1 dose, If giving IV, may be pushed over a minimum of 1 minute. Given 2025 10:21 PM EDT 10 mg dexAMETHasone (DECADRON) injection 6 mg 6 mg, Intravenous, Every 6 Hours, First dose (after last modification) on Sat07/15/25 at 0600, If giving IV, may be pushed over a minimum of 1 minute. Given 07/21/2025 5:08 AM EDT 6 mg Given 07/20/2025 11:51 PM EDT 6 mg Given 07/20/2025 6:20 PM EDT 6 mg dexAMETHasone (DECADRON) tablet 6 mg 6 mg, Oral, Every 6 Hours Scheduled, First dose on Sat07/21/25 at 1400, Take with food. Given 07/27/2025 5:07 AM EDT 6 m g Given 07/27/2025 12:18 AM EDT 6 mg Given 07/26/2025 5:02 PM EDT 6 mg dexAMETHasone (DECADRON) tablet 6 mg 6 mg, Oral, Every 12 Hours Scheduled, First dose (after last modification) on Sat07/27/25 at 2100, Take with food. dextrose (D50W) (25 g/50 mL) IV injection 25 g 25 g, Intravenous, Every 15 Minutes PRN, Low Blood Sugar, Blood Sugar Less Than 70, Starting on Sat07/15/25 at 0227, Blood sugar less than 70; patient has IV access - Unresponsive, NPO or Unable To Safely Swallow dextrose (GLUTOSE) oral gel 15 g 15 g, Oral, Every 15 Minutes PRN, Low Blood Sugar, Blood sugar less than 70, Starting on Sat07/15/25 at 0227, BS<70, Patient Alert, Is not NPO, Can safely swallow. donepezil (ARICEPT) tablet 10 mg 10 mg, Oral, Nightly, First dose on Sat07/16/25 at 2100 Given 07/26/2025 8:28 PM EDT 10 mg Given 07/25/2025 9:30 PM EDT 10 mg Given 07/24/2025 9:25 PM EDT 10 mg famotidine (PEPCID) tablet 20 mg 20 mg, Oral, Daily, First dose (after last modification) on Sat07/21/25 at 0900 Given 07/27/2025 8:36 AM EDT 20 mg Given 07/26/2025 8:27 AM EDT 20 mg Given 07/23/2025 8:41 AM EDT 20 mg famotidine (PEPCID) tablet 40 mg 40 mg, Oral, Daily, First dose on Sat07/15/25 at 0900 Given 07/20/2025 8:48 AM EDT 40 mg Given 07/19/2025 10:16 AM EDT 40 mg Given 07/18/2025 9:46 AM EDT 40 mg Gadopiclenol (VUEWAY) injection 7.5 mL 7.5 mL, Intravenous, Once in Imaging, On Sat07/14/25 at 2331, For 1 dose, Administer undiluted as intravenous bolus at 2 ml/sec. Flush with NS after injection. Given 2025 11:15 PM EDT 7.5 mL Gadopiclenol (VUEWAY) injection 7.5 mL 7.5 mL, Intravenous, Once in Imaging, On Sat07/15/25 at 1415, For 1 dose, Administer undiluted as intravenous bolus at 2 ml/sec. Flush with NS after injection. Given 07/15/2025 1:28 PM EDT 7.5 mL Gadopiclenol (VUEWAY) injection 7.5 mL 7.5 mL, Intravenous, Once in Imaging, On Sat07/23/25 at 0145, For 1 dose, Administer undiluted as intravenous bolus at 2 ml/sec. Flush with NS after injection. Given 07/23/2025 12:55 AM EDT 7 mL glucagon (GLUCAGEN) injection 1 mg 1 mg, Intramuscular, Every 15 Minutes PRN, Low Blood Sugar, Blood Glucose Less Than 70, Starting on Sat07/15/25 at 0227, Blood Glucose Less Than 70 - Patient Without IV Access - Unresponsive, NPO or Unable To Safely Swallow Reconstitute powder for injection by adding 1 mL of director of intelligence-supplied sterile diluent or sterile water for injection to a vial containing 1 mg of the drug, to provide solutions containing 1 mg/mL. Shake vial gently to dissolve. heparin (porcine) 5000 UNIT/ML injection 5,000 Units 5,000 Units, Subcutaneous, Every 8 Hours Scheduled, First dose on 07/18/25 at 2200, Indications: VTE ProphylaxisIndications:VTE Prophylaxis Given 07/27/2025 2:35 PM EDT 5,000 Units Right Lower Abdomen Given 07/27/2025 5:07 AM EDT 5,000 Units L eft Lower Abdomen Given 07/26/2025 8:29 PM EDT 5,000 Units L eft Lower Abdomen HYDROcodone-acetaminophen (NORCO) 7.5-325 MG per tablet 1 tablet 1 tablet, Oral, Every 6 Hours PRN, Moderate Pain, Starting on Lissette 07/15/25 at 0202, For 5 days, Based on patient request - if ordered for moderate or severe pain, provider allows for administration of a medication prescribed for a lower pain scale. [ZOFIA] Do not exceed 4 grams of acetaminophen in a 24 hr period. Max dose of 2gm for AST/ALT greater than 120 units/L If given for pain, use the following pain scale: Mild Pain = Pain Score of 1-3, CPOT 1-2 Moderate Pain = Pain Score of 4-6, CPOT 3-4 Severe Pain = Pain Score of 7-10, CPOT 5-8 Given 07/15/2025 9:22 PM EDT 1 tablet HYDROmorphone (DILAUDID) injection 0.25 mg 0.25 mg, Intravenous, Every 2 Hours PRN, Severe Pain, Starting on Sat07/16/25 at 1051, For 11 days 9 hours, Based on patient request - if ordered for moderate or severe pain, provider allows for administration of a medication prescribed for a lower pain scale. If given for pain, use the following pain scale: Mild Pain = Pain Score of 1-3, CPOT 1-2 Moderate Pain = Pain Score of 4-6, CPOT 3-4 Severe Pain = Pain Score of 7-10, CPOT 5-8 insulin glargine (LANTUS, SEMGLEE) injection 10 Units 10 Units, Subcutaneous, Nightly, First dose on 07/17/25 at 2100, Do not hold basal insulin without an order. Consider requesting a dose edit, if needed. ([facility]) Given 07/18/2025 9:26 PM EDT 10 Units Right Arm Given 07/17/2025 9:23 PM EDT 10 Units Ri ght Arm insulin glargine (LANTUS, SEMGLEE) injection 20 Units 20 Units, Subcutaneous, Nightly, First dose (after last modification) on 07/19/25 at 2100, Do not hold basal insulin without an order. Consider requesting a dose edit, if needed. ([facility]) Given 07/21/2025 8:00 PM EDT 20 Units Left Arm Given 07/20/2025 8:11 PM EDT 20 Units Le ft Lower Abdomen Given 07/19/2025 8:50 PM EDT 20 Units Ri ght Arm insulin glargine (LANTUS, SEMGLEE) injection 25 Units 25 Units, Subcutaneous, Nightly, First dose (after last modification) on Lissette 07/22/25 at 2100, Do not hold basal insulin without an order. Consider requesting a dose edit, if needed. ([facility]) Given 07/23/2025 9:46 PM EDT 25 Units Right Arm Given 07/22/2025 8:55 PM EDT 25 Units L eft Arm insulin glargine (LANTUS, SEMGLEE) injection 30 Units 30 Units, Subcutaneous, Nightly, First dose (after last modification) on [facility] 07/24/25 at 2100, Do not hold basal insulin without an order. Consider requesting a dose edit, if needed. ([facility]) Given 07/26/2025 8:28 PM EDT 30 Units Right Arm Given 07/25/2025 9:31 PM EDT 30 Units Ri ght Arm Given 07/24/2025 9:26 PM EDT 30 Units Ri ght Arm Insulin Lispro (humaLOG) injection 10 Units 10 Units, Subcutaneous, 3 Times Daily With Meals, First dose (after last modification) on 07/19/25 at 0830, Solution should be clear. If cloudy, contact pharmacy for a new vial. Scheduled mealtime doses of this medication should be held if patient NPO. ([facility]) Caution: Look alike/sound alike drug alert([facility]) Given 07/19/2025 6:08 PM EDT 10 Units Right Arm Given 07/19/2025 12:32 PM EDT 10 Units R ight Arm Given 07/19/2025 10:15 AM EDT 10 Units L eft Arm Insulin Lispro (humaLOG) injection 10 Units 10 Units, Subcutaneous, 3 Times Daily With Meals, First dose (after last modification) on Sat07/27/25 at 1215, Solution should be clear. If cloudy, contact pharmacy for a new vial. Scheduled mealtime doses of this medication should be held if patient NPO. ([facility]) Caution: Look alike/sound alike drug alert([facility]) Given 07/27/2025 12:41 PM EDT 10 Units Right Arm Insulin Lispro (humaLOG) injection 14 Units 14 Units, Subcutaneous, 3 Times Daily With Meals, First dose (after last modification) on Sat07/20/25 at 0830, Solution should be clear. If cloudy, contact pharmacy for a new vial. Scheduled mealtime doses of this medication should be held if patient NPO. ([facility]) Caution: Look alike/sound alike drug alert([facility]) Given 07/27/2025 8:35 AM EDT 14 Units Right Arm Given 07/26/2025 5:03 PM EDT 14 Units Ri ght Arm Given 07/26/2025 11:44 AM EDT 14 Units R ight Arm Insulin Lispro (humaLOG) injection 2-7 Units 2-7 Units, Subcutaneous, 4 Times Daily Before Meals & Nightly, First dose on Sat07/15/25 at 1130, Correction Insulin - Low Dose - Total Insulin Dose Less Than 40 units/day (Lean, Elderly or Renal Patients) Blood Glucose 150-199 mg/dL - 2 units Blood Glucose 200-249 mg/dL - 3 units Blood Glucose 250-299 mg/dL - 4 units Blood Glucose 300-349 mg/dL - 5 units Blood Glucose 350-400 mg/dL - 6 units Blood Glucose Greater Than 400 mg/dL - 7 units & Call Provider ([facility]) Caution: Look alike/sound alike drug alert([facility]) Given 07/21/2025 11:46 AM EDT 7 Units Right Arm Given 07/21/2025 9:34 AM EDT 4 Units Le ft Arm Given 07/20/2025 8:09 PM EDT 4 Units Le ft Arm Insulin Lispro (humaLOG) injection 2-9 Units 2-9 Units, Subcutaneous, 4 Times Daily Before Meals & Nightly, First dose on Sat07/21/25 at 1730, Correction Insulin - Moderate Dose (Total Insulin Dose 40-60 units/day, Average Weight Patient, Patient Taking Oral Hypoglycemic) Blood Glucose 150-199 mg/dL - 2 units Blood Glucose 200-249 mg/dL - 4 units Blood Glucose 250-299 mg/dL - 6 units Blood Glucose 300-349 mg/dL - 7 units Blood Glucose 350-400 mg/dL - 8 units Blood Glucose greater than 400 mg/dL - 9 units & Call Provider ([facility]) Caution: Look alike/sound alike drug alert([facility]) Given 07/27/2025 12:41 PM EDT 2 Units R ight Arm Given 07/27/2025 8:35 AM EDT 4 Units Ri ght Arm Given 07/26/2025 8:28 PM EDT 8 Units Ri ght Arm Insulin Lispro (humaLOG) injection 5 Units 5 Units, Subcutaneous, 3 Times Daily With Meals, First dose on 07/17/25 at 1815, Solution should be clear. If cloudy, contact pharmacy for a new vial. Scheduled mealtime doses of this medication should be held if patient NPO. ([facility]) Caution: Look alike/sound alike drug alert([facility]) Given 07/18/2025 5:53 PM EDT 5 Units Right Arm Given 07/18/2025 9:47 AM EDT 5 Units Ri ght Arm Given 07/17/2025 5:47 PM EDT 5 Units Ri ght Arm lactulose (CHRONULAC) solution for enema 300 mL 300 mL, Rectal, Once, On 07/19/25 at 1115, For 1 dose, Rectal administration (retention enema): Dilute 200 g (300 mL) with 700 mL of water or NS. Administer total volume of 1000 ml via rectal balloon catheter; retain for 30-60 minutes; may repeat every 4-6 hours; transition to oral treatment prior to discontinuing rectal administration Given 07/19/2025 3:46 PM EDT 300 mL Lidocaine 4 % 1 patch 1 patch, Transdermal, Administer over 12 Hours, Once, On Sat07/14/25 at 2133, For 1 dose, Apply to skin on low back . Remove patch in 12 hours. Apply patch only once for up to 12 hours in 24 hour period. Based on patient request - if ordered for moderate or severe pain, provider allows for administration of a medication prescribed for a lower pain scale. If given for pain, use the following pain scale: Mild Pain = Pain Score of 1-3, CPOT 1-2 Moderate Pain = Pain Score of 4-6, CPOT 3-4 Severe Pain = Pain Score of 7-10, CPOT 5-8 Medication Applied 2025 9:58 PM EDT 1 patch Other Magnesium Cardiology Dose Replacement - Follow Nurse / BPA Driven Protocol Open Order & Select [facility] Electrolyte Replacement Protocol Algorithm to View Details magnesium citrate solution 150 mL 150 mL, Oral, Once, On Sat07/20/25 at 0815, For 1 dose Given 07/20/2025 8:49 AM EDT 150 mL magnesium citrate solution 150 mL 150 mL, Oral, Once, On Sat07/20/25 at 1345, For 1 dose Given 07/20/2025 2:15 PM EDT 150 mL magnesium sulfate 2g/50 mL (PREMIX) infusion 2 g, Intravenous, Administer over 2 Hours, Every 2 Hours, First dose on Lissette 07/15/25 at 1130, For 3 doses New Bag 07/15/2025 6:27 PM EDT 2 g New Bag 07/15/2025 5:01 PM EDT 2 g New Bag 07/15/2025 1:27 PM EDT 2 g memantine (NAMENDA) tablet 5 mg 5 mg, Oral, 2 Times Daily, First dose on Sat07/16/25 at 2100 Given 07/27/2025 8:37 AM EDT 5 mg Given 07/26/2025 8:28 PM EDT 5 mg Given 07/26/2025 8:27 AM EDT 5 mg methocarbamol (ROBAXIN) tablet 1,500 mg 1,500 mg, Oral, Once, On Sat07/14/25 at 2133, For 1 dose Given 2025 9:58 PM EDT 1,500 mg Naloxegol Oxalate (MOVANTIK) tablet 12.5 mg 12.5 mg, Oral, Once, On Sat07/20/25 at 0900, For 1 dose, Administer on empty stomach, 1 hour before a meal or 2 hours after a meal. Discontinue all maintenance laxative therapy prior to use; may reintroduce laxatives as needed if suboptimal response to naloxegol after 3 days., Is this a continuation of a home medication? No, Is patient on chronic opioid therapy? Yes Given 07/20/2025 8:57 AM EDT 12.5 mg naloxone (NARCAN) injection 0.4 mg 0.4 mg, Intravenous, Every 5 Minutes PRN, Respiratory Depression, Starting on Lissette 07/15/25 at 0202, If respiratory rate is less than 8 breaths/minute or patient is difficult to arouse stop any narcotics and contact physician. Administer slow IV push. Repeat as ordered until patient's respiratory rate is greater than 12 breaths/minute. dtlyytii-yjvawupyao-bdhwtmvwf b (NEOSPORIN) ointment 1 Application 1 Application, Topical, Every 8 Hours PRN, Irritation, Starting on Sat07/25/25 at 1207, Apply to chest scab. Given 07/25/2025 5:18 PM EDT 1 Application nitroglycerin (NITROSTAT) SL tablet 0.4 mg 0.4 mg, Sublingual, Every 5 Minutes PRN, Chest Pain, Starting on Lissette 07/15/25 at 0156, If Pain Unrelieved After 3 Doses Notify MD May administer up to 3 doses per episode. Hold if SBP less than 100. ondansetron (ZOFRAN) injection 4 mg 4 mg, Intravenous, Every 6 Hours PRN, Nausea, Vomiting, Starting on Lissette 07/15/25 at 0203, If BOTH ondansetron (ZOFRAN) and promethazine (PHENERGAN) are ordered use ondansetron first and THEN promethazine IF ondansetron is ineffective. oxyCODONE (ROXICODONE) immediate release tablet 5 mg 5 mg, Oral, Once, On Sat07/14/25 at 2133, For 1 dose, Based on patient request - if ordered for moderate or severe pain, provider allows for administration of a medication prescribed for a lower pain scale. (ZOFIA) If given for pain, use the following pain scale: Mild Pain = Pain Score of 1-3, CPOT 1-2 Moderate Pain = Pain Score of 4-6, CPOT 3-4 Severe Pain = Pain Score of 7-10, CPOT 5-8 Given 2025 9:57 PM EDT 5 mg oxyCODONE (ROXICODONE) immediate release tablet 7.5 mg 7.5 mg, Oral, Every 6 Hours PRN, Moderate Pain, Starting on Sat07/16/25 at 1050, For 11 days 9 hours, Based on patient request - if ordered for moderate or severe pain, provider allows for administration of a medication prescribed for a lower pain scale. (ZOFIA) If given for pain, use the following pain scale: Mild Pain = Pain Score of 1-3, CPOT 1-2 Moderate Pain = Pain Score of 4-6, CPOT 3-4 Severe Pain = Pain Score of 7-10, CPOT 5-8 Given 07/27/2025 12:18 AM EDT 7.5 mg Given 07/26/2025 2:14 AM EDT 7.5 mg Given 07/25/2025 7:06 PM EDT 7.5 mg Phosphorus Replacement - Follow Nurse / BPA Driven Protocol Open Order & Select [facility] Electrolyte Replacement Protocol Algorithm to View Details polyethylene glycol (MIRALAX) packet 17 g 17 g, Oral, Daily, First dose (after last modification) on 07/19/25 at 1115, Use if no bowel movement after 12 hours. Mix in 6-8 ounces of water. Use 4-8 ounces of water, tea, or juice for each 17 gram dose. Given 07/24/2025 8:57 AM EDT 17 g Given 07/20/2025 8:48 AM EDT 17 g Given 07/19/2025 3:46 PM EDT 17 g potassium chloride (KLOR-CON M20) CR tablet 40 mEq 40 mEq, Oral, Every 4 Hours, First dose on Sat07/20/25 at 1830, For 2 doses, Do not crush or chew the capsules or tablets. The drug may not work as designed if the capsule or tablet is crushed or chewed. Swallow whole. Take with food. Given 07/20/2025 8:09 PM EDT 40 mEq Given 07/20/2025 6:20 PM EDT 40 mEq Potassium Replacement - Follow Nurse / BPA Driven Protocol Open Order & Select [facility] Electrolyte Replacement Protocol Algorithm to View Details pregabalin (LYRICA) capsule 75 mg 75 mg, Oral, Daily, First dose on Sat07/15/25 at 0900, (ZOFIA) Given 07/16/2025 8:33 AM EDT 75 mg Given 07/15/2025 8:34 AM EDT 75 mg sennosides-docusate (PERICOLACE) 8.6-50 MG per tablet 2 tablet 2 tablet, Oral, 2 Times Daily, First dose (after last modification) on 07/17/25 at 0915, Start bowel management regimen if patient has not had a bowel movement after 12 hours. Given 07/17/2025 9:23 PM EDT 2 tablets Given 07/17/2025 9:21 AM EDT 2 tablets sennosides-docusate (PERICOLACE) 8.6-50 MG per tablet 2 tablet 2 tablet, Oral, 2 Times Daily, First dose (after last modification) on 07/19/25 at 1115, HOLD MEDICATION IF PATIENT HAS HAD BOWEL MOVEMENT. Start bowel management regimen if patient has not had a bowel movement after 12 hours. Given 07/24/2025 8:58 AM EDT 2 tablets Given 07/20/2025 8:10 PM EDT 2 tablets Given 07/20/2025 8:48 AM EDT 2 tablets sodium chloride 0.9 % bolus 500 mL 500 mL, Intravenous, at 1,000 mL/hr, Administer over 0.5 Hours, Once, On Lissette 07/15/25 at 0219, For 1 dose New Bag 07/15/2025 3:17 AM EDT 500 mL 1000 mL/hr sodium chloride 0.9 % flush 10 mL 10 mL, Intravenous, Every 12 Hours Scheduled, First dose on Lissette 07/15/25 at 0219 Given 07/27/2025 8:38 AM EDT 10 mL Given 07/26/2025 8:30 PM EDT 10 mL Given 07/26/2025 8:28 AM EDT 10 mL sodium chloride 0.9 % flush 10 mL 10 mL, Intravenous, As Needed, Line Care, Starting on Lissette 07/15/25 at 0155 sodium chloride 0.9 % infusion 40 mL 40 mL, Intravenous, at 100 mL/hr, As Needed, Line Care, Starting on Lissette 07/15/25 at 0155, Following administration of an IV intermittent medication, flush line with 40mL NS at 100mL/hr. sodium chloride 0.9 % infusion 75 mL/hr, Intravenous, Continuous, Starting on Lissette 07/15/25 at 0219, For 24 hours New Bag 07/15/2025 1:29 PM EDT 75 mL/hr 75 mL/hr New Bag 07/15/2025 3:17 AM EDT 75 mL/hr 75 mL/hr sodium zirconium cyclosilicate (LOKELMA) packet 10 g 10 g, Oral, Once, On Sat07/21/25 at 1600, For 1 dose, Empty contents of packet into drinking glass and mix with 3 or more tablespoons of water. Stir well and give to patient to drink immediately. If powder remains add additional water and stir. Empty entire contents of the packet(s) into a glass with at least 3 tablespoons (45 mL) of water. Stir well and drink immediately; if powder remains in the glass, add water, stir and drink immediately; repeat until no powder remains. Administer other oral medications at least 2 hours before or 2 hours after dose. Given 07/21/2025 4:01 PM EDT 10 g Sulfur Hexafluoride Microsph (LUMASON) 60.7-25 MG IV reconstituted suspension reconstituted suspension 2 mL 2 mL, Intravenous, Once in Imaging, On 07/24/25 at 1630, For 1 dose Given 07/24/2025 3:41 PM EDT 2 mL documented in this encounter Active and Recently Administered Medications Times are shown in EDT. Scheduled Medication Order 07/25/2025 07/26/2025 07/27/2025 dexAMETHasone (DECADRON) tablet 6 mg (CANCELED) 6 mg, Oral, Every 6 Hours Scheduled, First dose on Sat07/21/25 at 1400, Take with food. 0513 (Given - Provider: Mireya Landers RN)1226 (Given - Provider: Hallie Hall RN)1718 (Given - Provider: Hallie Hall RN) 0042 (Given - Provider: Mireya Landers RN)0625 (Given - Provider: Mireya Landers RN)1144 (Given - Provider: Sorin Noble, DERRICK)1702 (Given - Provider: Sorin Noble, DERRICK) 0018 (Given - Provider: Lashonda Vásquez, DERRICK)0507 (Given - Provider: Lashonda Vásquez, DERRICK) dexAMETHasone (DECADRON) tablet 6 mg 6 mg, Oral, Every 12 Hours Scheduled, First dose (after last modification) on Sat07/27/25 at 2100, Take with food. donepezil (ARICEPT) tablet 10 mg 10 mg, Oral, Nightly, First dose on Sat07/16/25 at 2100 2130 (Given - Provider: Mireya Landers RN) 2027 (Given - Provider: Lashonda Vásquez, DERRICK) famotidine (PEPCID) tablet 20 mg 20 mg, Oral, Daily, First dose (after last modification) on Sat07/21/25 at 0900 0900 (Not Given - Provider: Hallie Hall RN - Reason: Patient/family refused) 0827 (Given - Provider: Sorin Noble RN) 0836 (Given - Provider: Korin Arndt, DERRICK) heparin (porcine) 5000 UNIT/ML injection 5,000 Units 5,000 Units, Subcutaneous, Every 8 Hours Scheduled, First dose on Sat07/18/25 at 2200, Indications: VTE Prophylaxis 0513 (Given - Provider: Mireya Landers RN)1333 (Given - Provider: Hallie Hall RN)213 (Given - Provider: Mireya Landers, DERRICK) 0624 (Given - Provider: Mireya Landers RN)1407 (Given - Provider: Sorin Noble RN)2028 (Given - Provider: Lashonda Vásquez, DERRICK)2200 (Canceled Entry - Provider: Lashonda Vásquez RN) 0507 (Given - Provider: Lashonda Vásquez RN)1435 (Given - Provider: Korin Arndt, DERRICK) insulin glargine (LANTUS, SEMGLEE) injection 30 Units 30 Units, Subcutaneous, Nightly, First dose (after last modification) on Sat07/24/25 at 2100, Do not hold basal insulin without an order. Consider requesting a dose edit, if needed. ([facility]) 2130 (Given - Provider: Mireya Landers RN) 2027 (Given - Provider: Lashonda Vásquez, DERRICK) Insulin Lispro (humaLOG) injection 10 Units 10 Units, Subcutaneous, 3 Times Daily With Meals, First dose (after last modification) on Sat07/27/25 at 1215, Solution should be clear. If cloudy, contact pharmacy for a new vial. Scheduled mealtime doses of this medication should be held if patient NPO. ([facility]) Caution: Look alike/sound alike drug alert([facility]) 1241 (Given - Provider: Korin Arntd, DERRICK) Insulin Lispro (humaLOG) injection 14 Units (CANCELED) 14 Units, Subcutaneous, 3 Times Daily With Meals, First dose (after last modification) on Sat07/20/25 at 0830, Solution should be clear. If cloudy, contact pharmacy for a new vial. Scheduled mealtime doses of this medication should be held if patient NPO. ([facility]) Caution: Look alike/sound alike drug alert([facility]) 0820 (Given - Provider: Hallie Hall RN)1226 (Given - Provider: Hallie Hall RN)1718 (Given - Provider: Hallie Hall RN) 0827 (Given - Provider: Sorin Noble, DERRICK)1144 (Given - Provider: Sorin Noble RN)1703 (Given - Provider: Sorin Noble RN) 0835 (Given - Provider: Korin Arndt, DERRICK)1242 (Canceled Entry - Provider: Korin Arndt RN - Comment: order d/c) Insulin Lispro (humaLOG) injection 2-9 Units 2-9 Units, Subcutaneous, 4 Times Daily Before Meals & Nightly, First dose on Sat07/21/25 at 1730, Correction Insulin - Moderate Dose (Total Insulin Dose 40-60 units/day, Average Weight Patient, Patient Taking Oral Hypoglycemic) Blood Glucose 150-199 mg/dL - 2 units Blood Glucose 200-249 mg/dL - 4 units Blood Glucose 250-299 mg/dL - 6 units Blood Glucose 300-349 mg/dL - 7 units Blood Glucose 350-400 mg/dL - 8 units Blood Glucose greater than 400 mg/dL - 9 units & Call Provider ([facility]) Caution: Look alike/sound alike drug alert([facility]) 0820 (Given - Provider: Hallie Hall RN)1226 (Given - Provider: Hallie Hall RN)1718 (Given - Provider: Hallie Hall RN)2131 (Given - Provider: Mireya Landers RN) 0827 (Given - Provider: Sorin Noble RN)1144 (Given - Provider: Sorin Noble RN)1703 (Given - Provider: Sorin Noble RN)2028 (Given - Provider: Lashonda Vásquez RN) 0835 (Given - Provider: Korin Arndt, DERRICK)1241 (Given - Provider: Korin Arndt, DERRICK) memantine (NAMENDA) tablet 5 mg 5 mg, Oral, 2 Times Daily, First dose on Sat07/16/25 at 2100 0821 (Given - Provider: Hallie Hall RN)2129 (Given - Provider: Mireya Landers, DERRICK) 08 (Given - Provider: Sorin Noble RN)2027 (Given - Provider: Lashonda Vásquez RN) 0837 (Given - Provider: Korin Arndt, DERRICK) polyethylene glycol (MIRALAX) packet 17 g(Linked Group 1) 17 g, Oral, Daily, First dose (after last modification) on Sat07/19/25 at 1115, Use if no bowel movement after 12 hours. Mix in 6-8 ounces of water. Use 4-8 ounces of water, tea, or juice for each 17 gram dose. 0900 (Not Given - Provider: Hallie Hall RN - Reason: Other (Comment Required)) 08 (Not Given - Provider: Sorin Noble RN - Reason: Patient/family refused) 08 (Not Given - Provider: Korin Arndt RN - Reason: Patient/family refused) sennosides-docusate (PERICOLACE) 8.6-50 MG per tablet 2 tablet(Linked Group 1) 2 tablet, Oral, 2 Times Daily, First dose (after last modification) on Sat07/19/25 at 1115, HOLD MEDICATION IF PATIENT HAS HAD BOWEL MOVEMENT. Start bowel management regimen if patient has not had a bowel movement after 12 hours. 0900 (Not Given - Provider: Hallie Hall RN - Reason: Patient/family refused)2130 (Not Given - Provider: Mireya Landers RN - Reason: Patient/family refused) 08 (Not Given - Provider: Sorin Noble RN - Reason: Patient/family refused)2028 (Not Given - Provider: Lashonda Vásquez RN - Reason: Contraindicated) 0837 (Not Given - Provider: Korin Arndt RN - Reason: Patient/family refused) sodium chloride 0.9 % flush 10 mL 10 mL, Intravenous, Every 12 Hours Scheduled, First dose on Lissette 07/15/25 at 0219 1719 (Given - Provider: Hallie Hall, RN)2132 (Given - Provider: Mireya Landers, RN) 0828 (Given - Provider: Sorin Noble, RN)2029 (Given - Provider: Lashonda Vásquez, RN) 0838 (Given - Provider: Korin Arndt, DERRICK) PRN Medication Order 07/25/2025 07/26/2025 07/27/2025 aluminum-magnesium hydroxide-simethicone (MAALOX MAX) 400-400-40 MG/5ML suspension 15 mL 15 mL, Oral, Every 6 Hours PRN, Heartburn, Starting on Lissette 07/15/25 at 0203, Maximum 60 mL in 24 hours. bisacodyl (DULCOLAX) EC tablet 5 mg(Linked Group 1) 5 mg, Oral, Daily PRN, Constipation, Use if polyethylene glycol is ineffective, Starting on 07/19/25 at 1026, Use if no bowel movement after 12 hours. Swallow whole. Do not crush, split, or chew tablet. bisacodyl (DULCOLAX) suppository 10 mg(Linked Group 1) 10 mg, Rectal, Daily PRN, Constipation, Use if bisacodyl oral is ineffective, Starting on 07/19/25 at 1026, Use if no bowel movement after 12 hours. Hold for diarrhea Calcium Replacement - Follow Nurse / BPA Driven Protocol Open Order & Select S Electrolyte Replacement Protocol Algorithm to View Details dextrose (D50W) (25 g/50 mL) IV injection 25 g 25 g, Intravenous, Every 15 Minutes PRN, Low Blood Sugar, Blood Sugar Less Than 70, Starting on Lissette 07/15/25 at 0227, Blood sugar less than 70; patient has IV access - Unresponsive, NPO or Unable To Safely Swallow dextrose (GLUTOSE) oral gel 15 g 15 g, Oral, Every 15 Minutes PRN, Low Blood Sugar, Blood sugar less than 70, Starting on Lissette 07/15/25 at 0227, BS<70, Patient Alert, Is not NPO, Can safely swallow. glucagon (GLUCAGEN) injection 1 mg 1 mg, Intramuscular, Every 15 Minutes PRN, Low Blood Sugar, Blood Glucose Less Than 70, Starting on Lissette 07/15/25 at 0227, Blood Glucose Less Than 70 - Patient Without IV Access - Unresponsive, NPO or Unable To Safely Swallow Reconstitute powder for injection by adding 1 mL of director of intelligence-supplied sterile diluent or sterile water for injection to a vial containing 1 mg of the drug, to provide solutions containing 1 mg/mL. Shake vial gently to dissolve. HYDROmorphone (DILAUDID) injection 0.25 mg 0.25 mg, Intravenous, Every 2 Hours PRN, Severe Pain, Starting on Sat07/16/25 at 1051, For 11 days 9 hours, Based on patient request - if ordered for moderate or severe pain, provider allows for administration of a medication prescribed for a lower pain scale. If given for pain, use the following pain scale: Mild Pain = Pain Score of 1-3, CPOT 1-2 Moderate Pain = Pain Score of 4-6, CPOT 3-4 Severe Pain = Pain Score of 7-10, CPOT 5-8 Magnesium Cardiology Dose Replacement - Follow Nurse / BPA Driven Protocol Open Order & Select [facility] Electrolyte Replacement Protocol Algorithm to View Details naloxone (NARCAN) injection 0.4 mg(Linked Group 2) 0.4 mg, Intravenous, Every 5 Minutes PRN, Respiratory Depression, Starting on Lissette 07/15/25 at 0202, If respiratory rate is less than 8 breaths/minute or patient is difficult to arouse stop any narcotics and contact physician. Administer slow IV push. Repeat as ordered until patient's respiratory rate is greater than 12 breaths/minute. [id number] yxin b (NEOSPORIN) ointment 1 Application 1 Application, Topical, Every 8 Hours PRN, Irritation, Starting on Sat07/25/25 at 1207, Apply to chest scab. 1718 (Given - Provider: Hallie Hall RN) nitroglycerin (NITROSTAT) SL tablet 0.4 mg 0.4 mg, Sublingual, Every 5 Minutes PRN, Chest Pain, Starting on Lissette 07/15/25 at 0156, If Pain Unrelieved After 3 Doses Notify MD May administer up to 3 doses per episode. Hold if SBP less than 100. ondansetron (ZOFRAN) injection 4 mg 4 mg, Intravenous, Every 6 Hours PRN, Nausea, Vomiting, Starting on Lissette 07/15/25 at 0203, If BOTH ondansetron (ZOFRAN) and promethazine (PHENERGAN) are ordered use ondansetron first and THEN promethazine IF ondansetron is ineffective. oxyCODONE (ROXICODONE) immediate release tablet 7.5 mg 7.5 mg, Oral, Every 6 Hours PRN, Moderate Pain, Starting on Sat07/16/25 at 1050, For 11 days 9 hours, Based on patient request - if ordered for moderate or severe pain, provider allows for administration of a medication prescribed for a lower pain scale. (ZOFIA) If given for pain, use the following pain scale: Mild Pain = Pain Score of 1-3, CPOT 1-2 Moderate Pain = Pain Score of 4-6, CPOT 3-4 Severe Pain = Pain Score of 7-10, CPOT 5-8 1906 (Given - Provider: Hallie Hall, RN) 0214 (Given - Provider: Mireya Landers, DERRICK) 0018 (Given - Provider: Lasohnda Vásquez, DERRICK) Phosphorus Replacement - Follow Nurse / BPA Driven Protocol Open Order & Select [facility] Electrolyte Replacement Protocol Algorithm to View Details Potassium Replacement - Follow Nurse / BPA Driven Protocol Open Order & Select [facility] Electrolyte Replacement Protocol Algorithm to View Details sodium chloride 0.9 % flush 10 mL 10 mL, Intravenous, As Needed, Line Care, Starting on Lissette 07/15/25 at 0155 sodium chloride 0.9 % infusion 40 mL 40 mL, Intravenous, at 100 mL/hr, As Needed, Line Care, Starting on Lissette 07/15/25 at 0155, Following administration of an IV intermittent medication, flush line with 40mL NS at 100mL/hr. Linked Groups Order Group 1: sennosides-docusate (PERICOLACE) 8.6-50 MG per tablet 2 tabletJump to med 2 tablet, Oral, 2 Times Daily, First dose (after last modification) on Sat07/19/25 at 1115, HOLD MEDICATION IF PATIENT HAS HAD BOWEL MOVEMENT. Start bowel management regimen if patient has not had a bowel movement after 12 hours. And polyethylene glycol (MIRALAX) packet 17 gJump to med 17 g, Oral, Daily, First dose (after last modification) on Sat07/19/25 at 1115, Use if no bowel movement after 12 hours. Mix in 6-8 ounces of water. Use 4-8 ounces of water, tea, or juice for each 17 gram dose. And bisacodyl (DULCOLAX) EC tablet 5 mgJump to med 5 mg, Oral, Daily PRN, Constipation, Use if polyethylene glycol is ineffective, Starting on 07/19/25 at 1026, Use if no bowel movement after 12 hours. Swallow whole. Do not crush, split, or chew tablet. And bisacodyl (DULCOLAX) suppository 10 mgJump to med 10 mg, Rectal, Daily PRN, Constipation, Use if bisacodyl oral is ineffective, Starting on 07/19/25 at 1026, Use if no bowel movement after 12 hours. Hold for diarrhea Group 2: morphine injection 2 mg (CANCELED) 2 mg, Intravenous, Every 4 Hours PRN, Severe Pain, Starting on Lissette 07/15/25 at 0202, For 5 days, Based on patient request - if ordered for moderate or severe pain, provider allows for administration of a medication prescribed for a lower pain scale. If given for pain, use the following pain scale: Mild Pain = Pain Score of 1-3, CPOT 1-2 Moderate Pain = Pain Score of 4-6, CPOT 3-4 Severe Pain = Pain Score of 7- 10, CPOT 5-8 And naloxone (NARCAN) injection 0.4 mgJump to med 0.4 mg, Intravenous, Every 5 Minutes PRN, Respiratory Depression, Starting on Lissette 07/15/25 at 0202, If respiratory rate is less than 8 breaths/minute or patient is difficult to arouse stop any narcotics and contact physician. Administer slow IV push. Repeat as ordered until patient's respiratory rate is greater than 12 breaths/minute. documented in this encounter Care Teams Mechanical Specialist Relationship Specialty [place] [address] [place] [address] PCP - General 12/19/15 07/28/25 documented as of this encounter
--- OUTSIDE RECORDS SUMMARY | 2025-07-16 07:30 | XMS_ITS | Encounter Summary ---
Author Organization [facility] Address [address] [place] [address] Care Team Providers Care Bobbin Washer Name Role Phone Loretta Cuevas MD Primary Care Provider [phone] Encounter Details Date Type Department Care Team (Latest Contact Info) Description 07/16/2025 8:30 AM EDT - 07/16/2025 11:59 PM EDT Hospital Encounter [facility] [address] [place] [address] Discharge Disposition: Home or Self Care Social [...] care, and heating? Not very hard 07/15/2025 [facility] [place] of Occupat ional Health - Occupational Stress [...] things needed for daily living? No 07/15/2025 [facility] Utilities Answer Date Recorded In the past 12 months has th [employer] electric, gas, oil, or water company threatened [...] home 06/30 Potentially Unsafe Housing Conditions none 07/17/2025 Family and Community Support Answer Omar e [...] GED or equivalent No 07/15/2025 Preferred Language Kinyarwanda 07/15/2025 PHQ-2 Answer Date Recorded Patient Health Questionnaire-2 Score 0 07/15/2025 Comments No Sex and Gender Information Value Date Recorded Sex Assigned at Not on file Legal Sex Female 11:35 AM EDT Gender Identity Not on file Sexual Orientation Not on file documented as of this encounter Medications at Time of Discharge [...] MG/0.1ML nasal spray Call 911. Don't prime. [place] in 1 nostril for overdose. Repeat in [...] tablet 07/27/2025 3:43 PM EDT 07/27/2025 5 hydroCHLOROthiaz annie (HYDRODIURIL) 12.5 MG tablet Take 1-2 tablet(s) by mouth daily as needed 180 tablet 1 07/18/2023 12:42 PM EDT 03/19/2023 5 Insulin Lispro (humaLOG) 100 UNIT/ML injection Inject 2-9 Units under the skin into the appropriate area as directed 4 (Four) Times a Day Before Meals & at Bedtime. 1080 Units 07/27/2025 5 moxifloxacin (VIGAMOX) 0.5 % ophthalmic solution INSTILL 1 DROP INTO EACH EYE THREE TIMES DAILY 10/05/2023 5 Neratinib (Nerlynx) 40 MG tablet chemo tablet Take 4 tablets by mouth Daily. 5 oxyCODONE HCl 7.5 MG tabletIndication s:Spinal cord mass Take 1 tablet by mouth Every 6 (Six) Hours As Needed for Moderate Pain for up to 3 days. 12 tablet 07/27/2025 5 oxyCODONE-acetam inophen (PERCOCET) 7.5-325 MG per tabletIndication s:Malignant neoplasm metastatic to bone Take 1 tablet by mouth Every 6 (Six) Hours As Needed for Moderate Pain. 120 tablet 04/19/2025 12:22 PM EDT 04/16/2025 prednisoLONE acetate (PRED FORTE) 1 % ophthalmic suspension Administer 1 drop to both eyes 3 (Three) Times a Day. 07/29/2023 5 documented as of this encounter Plan of Treatment Upcoming Encounters Date Type Department Care Team (Late st Contact Info) Description 08/18/2025 8:45 AM EST Appointment [facility] [address] [place] [address] 08/18/2025 9:15 AM EST Office Visit [facility] [address] [facility] [address] [place] [id number] Valentina Sadler MD [address] [facility] [address] [place] [address] 08/18/2025 9:30 AM EST Appointment [facility] [address] [place] [address] 09/13/2025 1:00 PM EST Clinical [facility] [address] [place] [address] Lita Luis APRN [address] [place] [address] documented as of this encounter Goals Goal Patient Goal Type Associated Problems Recent Progress Patient-Stated? Author Specialty Pharmacy General Goal General No Leighann Lam, PharmD Note: Clinical goal/therapeutic target: disease control, per the recent oncology clinic notes and labs. documented as of this encounter Visit Diagnoses Not on filedocumented in this encounter Care Teams Bobbin Washer Relationship Specialty Start Date End Date Loretta Cuevas MD [address] [facility] [address] [place], [place] [id number] PCP - General 12/19/15 07/28/25 documented as of this encounter
--- OUTSIDE RECORDS SUMMARY | 2025-07-26 12:00 | XMS_ITS | Encounter Summary ---
Author Organization [facility] Address [address] [place] [address] Care Team Providers Care Crude Oil Treater Name Role Phone Loretta Cuevas MD Primary Care Provider [phone] Encounter Details Date Type Department Care Team (Latest Contact Info) Description 07/26/2025 1:00 PM EDT - 07/26/2025 11:59 PM EDT Hospital Encounter [facility] [address] [place] [address] Discharge Disposition: Home or Self [...] care, and heating? Not very hard 07/15/2025 [facility] [place] of Occupat ional Health - Occupational Stress [...] things needed for daily living? No 07/15/2025 [facility] Utilities Answer Date Recorded In the past 12 months has th [employer] electric, gas, oil, or water company threatened [...] GED or equivalent No 07/15/2025 Preferred Language Urdu 07/15/2025 PHQ-2 Answer Date Recorded Patient Health [...] MG/0.1ML nasal spray Call 911. Don't prime. [place] in 1 nostril for overdose. Repeat in [...] 12 tablet 07/27/2025 3:43 PM EDT 07/27/2025 Insulin Lispro (humaLOG) 100 UNIT/ML injection Inject 2-9 Units under the skin into the appropriate area as directed 4 (Four) Times a Day Before Meals & at Bedtime. 1080 Units 07/27/2025 moxifloxacin (VIGAMOX) 0.5 % ophthalmic solution INSTILL 1 DROP INTO EACH EYE THREE TIMES DAILY 10/05/2023 Neratinib (Nerlynx) 40 MG tablet chemo tablet [...] 120 tablet 04/19/2025 12:22 PM EDT 04/16/2025 5 documented as of this encounter Plan of Treatment Upcoming Encounters Date Type Department Care Team (Late st Contact Info) Description 08/18/2025 8:45 AM EST Appointment [facility] [address] [place] [phone] 08/18/2025 9:15 AM EST Office Visit [facility] [address] [facility] [address] [place] [address] Valentina Sadler MD [address] [facility] [address] [place] [address] 08/18/2025 9:30 AM EST Appointment [facility] [address] [place] [address] 09/13/2025 1:00 PM EST Clinical Support [facility] [address] [place] [address] Lita Luis APRN [address] [place] [address] documented as of this encounter Goals Goal Patient Goal Type Associated Problems Recent Progress Patient-Stated? Author Specialty Pharmacy General Goal General No Leighann Lam, PharmD Note: Clinical goal/therapeutic target: disease control, per the recent oncology clinic notes and labs. documented as of this encounter Visit Diagnoses Not on filedocumented in this encounter Care Teams Crude Oil Treater Relationship Specialty Start Date End Date Loretta Cuevas MD [address] [facility] [address] [place] [address] PCP - General 12/19/15 07/28/25 documented as of this encounter
--- OUTSIDE RECORDS SUMMARY | 2025-07-28 04:10 | XMS_ITS | Encounter Summary ---
Author Organization [facility] Address [address] [place] [address] Care Team Providers Care Glue Maker Bone Name Role Phone Loretta Cuevas MD Primary Care Provider [phone] Encounter Details Date Type Department Care Team (Latest Contact Info) Description 07/28/2025 5:10 AM EDT - 07/28/2025 11:59 PM EDT Hospital Encounter [facility] [address] [facility] [address] [place] [address] Discharge Disposition: Home or Self [...] care, and heating? Not very hard 07/15/2025 [facility] [place] of Occupat ional Health - Occupational Stress [...] things needed for daily living? No 07/15/2025 [facility] Utilities Answer Date Recorded In the past 12 months has th [employer] electric, gas, oil, or water company threatened [...] GED or equivalent No 07/15/2025 Preferred Language Mauritanian 07/15/2025 PHQ-2 Answer Date Recorded Patient Health [...] 30 tablet 07/27/2025 3:43 PM EDT 07/28/2025 fluconazole (DIFLUCAN) 200 MG tablet Take 1 tablet by mouth Daily. 5 tablet 07/28/2025 1:02 PM EDT 07/28/2025 glucose blood test strip [...] MG/0.1ML nasal spray Call 911. Don't prime. [place] in 1 nostril for overdose. Repeat in [...] Daily. 5 documented as of this encounter Plan of Treatment Upcoming Encounters Date Type Department Care Team (Late st Contact Info) Description 08/18/2025 8:45 AM EST Appointment [facility] [address] [place] [address] 08/18/2025 9:15 AM EST Office Visit [facility] [address] [facility] [address] [place] [address] Valentina Sadler MD [address] [facility] [address] [place] [address] 08/18/2025 9:30 AM EST Appointment [facility] [address] [place] [address] 09/13/2025 1:00 PM EST Clinical Support [facility] [address] [place] [id number] Lita Luis APRN [address] [place] [address] documented as of this encounter Goals Goal Patient Goal Type Associated Problems Recent Progress Patient-Stated? Author Specialty Pharmacy General Goal General No Leighann Lam, PharmD Note: Clinical goal/therapeutic target: disease control, per the recent oncology clinic notes and labs. documented as of this encounter Visit Diagnoses Not on filedocumented in this encounter Care Teams Glue Maker Bone Relationship Specialty Start Date End Date Loretta Cuevas MD [address] [address] PCP - General 12/19/15 07/28/25 documented as of this encounter
--- OUTSIDE RECORDS SUMMARY | 2025-07-28 08:18 | XMS_ITS | Encounter Summary ---
Author Organization [facility] Address [address] [place] [address] Care Team Providers Care High Density Talc Coater Operator Name Role Phone Loretta Cuevas MD Primary Care Provider [phone] Reason for Visit * Auth/Cert Specialty Diagnoses / Procedures Referred By Haley arceo Referred To Contact Diagnoses Cauda equina syndrome Referral ID Status Reason Start Date Expiration Date Visits Re quested Visits Authorized [id number] 1 1 Encounter Details Date Type Department Care Team (Late st Contact Info) Description 07/28/2025 9:18 AM EDT - 07/28/2025 11:59 PM EDT Hospital Encounter [facility] [address] [place] [id number] Valentina Sadler MD [address] [facility] [address] [place] [address] Malignant neoplasm of upper-outer quadrant of left breast in female, estrogen receptor positive (Primary Dx); Adenocarcinoma of 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; Encounter for care related to vascular access port Discharge Disposition: Home or Self Care Social [...] care, and heating? Not very hard 07/15/2025 [facility] - Occupational Stress [...] things needed for daily living? No 07/15/2025 [facility] Utilities Answer Date Recorded In the [...] GED or equivalent No 07/15/2025 Preferred Language Spanish 07/15/2025 PHQ-2 Answer Date Recorded Patient Health [...] MG/0.1ML nasal spray Call 911. Don't prime. [place] in 1 nostril for overdose. Repeat in [...] Info) Description 08/18/2025 8:45 AM EST Appointment [facility] [address] [place] [address] 08/18/2025 9:15 AM EST Office Visit [facility] [address] [facility] [address] [place] [address] Valentina Sadler MD [address] [facility] [address] [place] [address] 08/18/2025 9:30 AM EST Appointment [facility] [address] [place] [id number] 09/13/2025 1:00 PM EST Clinical Support [facility] [address] [facility] [place] [address] Lita Luis APRN [address] [place] [address] documented as of this encounter Goals Goal Patient Goal Type Associated Problems Recent Progress Patient-Stated? Author Specialty Pharmacy General Goal General No Leighann Lam, PharmD Note: Clinical goal/therapeutic target: disease control, per the recent oncology clinic notes and labs. documented as of this encounter Procedures Procedure Name Priority Date/Time Associated Diagnosis Comments CBC WITH AUTO DIFFERENTIAL Routine 07/28/2025 9:26 AM EDT Adenocarcinoma of 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, estrogen receptor positive CBC AND DIFFERENTIAL Routine 07/28/2025 9:26 AM EDT Adenocarcinoma of 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, estrogen receptor positive COMPREHENSIVE METABOLIC PANEL Routine 07/28/2025 9:26 AM EDT Adenocarcinoma of 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, estrogen receptor positive documented in this encounter Results * (ABNORMAL) CBC Auto Differential (07/28/2025 9:26 AM EDT) WBC 8.30 3.40 - 10.80 10*3/mm3 07/28/2025 9:39 AM [facility] RBC 3.32(L) 3.77 - 5.28 10*6/mm3 [facility] Hemoglobin 8.7(L) 12.0 - 15.9 g/dL 07/28/2025 9:39 AM [facility] Hematocrit 28.3(L) 34.0 - 46.6 % 07/28/2025 9:39 AM [facility] MCV 85.2 79.0 - 97.0 fL 07/28/2025 9:39 AM [facility] MCH 26.2(L) 26.6 - 33.0 pg 07/28/2025 9:39 AM [facility] MCHC 30.7(L) 31.5 - 35.7 g/dL 07/28/2025 9:39 AM [facility] RDW 17.7(H) 12.3 - 15.4 % 07/28/2025 9:39 AM [facility] RDW-SD 55.5(H) 37.0 - 54.0 fl 07/28/2025 9:39 AM [facility] MPV 8.8 6.0 - 12.0 fL 07/28/2025 9:39 AM [facility] Platelets 81(L) 140 - 450 10*3/mm3 07/28/2025 9:39 AM [facility] Neutrophil % 91.3(H) 42.7 - 76.0 % 07/28/2025 9:39 AM [facility] Lymphocyte % 3.4(L) 19.6 - 45.3 % 07/28/2025 9[facility]39 [facility] Monocyte % 4.6(L) 5.0 - 12.0 % 07/28/2025 9:39 AM [facility] Eosinophil % 0.0(L) 0.3 - 6.2 % 07/28/2025 9:39 AM EDT [facility] Basophil % 0.1 0.0 - 1.5 % 07/28/2025 9:39 AM EDT [facility] Immature Grans % 0.6(H) 0.0 - 0.5 % 07/28/2025 9:39 AM EDT [facility] Neutrophils, Absolute 7.58(H) 1.70 - 7.00 10*3/mm3 07/28/2025 9:39 AM EDT [facility] Lymphocytes, Absolute 0.28(L) 0.70 - 3.10 10*3/mm3 07/28/2025 9:39 AM EDT [facility] Monocytes, Absolute 0.38 0.10 - 0.90 10*3/mm3 07/28/2025 9:39 AM EDT [facility] Eosinophils, Absolute 0.00 0.00 - 0.40 10*3/mm3 07/28/2025 9:39 AM EDT [facility] Basophils, Absolute 0.01 0.00 - 0.20 10*3/mm3 07/28/2025 9:39 AM EDT [facility] Immature Grans, Absolute 0.05 0.00 - 0.05 10*3/mm3 07/28/2025 9:39 AM EDT [facility] Blood Port / Unknown 07/28/2025 9: 26 AM EDT 07/28/2025 9:36 AM EDT us Valentina Sadler MD LAB BLOOD ORDERABLES Sherry saucedo Result [facility]
[address] [place] [address], * (ABNORMAL) Comprehensive metabolic panel (07/28/2025 9:26 AM EDT) Glucose 274(H) 65 - 99 mg/dL 07/28/2025 10:14 [facility] BUN 55.8(H) 8.0 - 23.0 mg/dL 07/28/2025 10:14 AM [facility] Creatinine 1.34(H) 0.57 - 1.00 mg/dL 07/28/2025 10:14 AM [facility] Sodium 134(L) 136 - 145 mmol/L 07/28/2025 10:14 AM [facility] Potassium 4.5 3.5 - 5.2 mmol/L 07/28/2025 10:14 AM [facility] Chloride 100 98 - 107 mmol/L 07/28/2025 10:14 AM [facility] CO2 22.1 22.0 - 29.0 mmol/L 07/28/2025 10:14 AM [facility] Calcium 8.7 8.6 - 10.5 mg/dL 07/28/2025 10:14 AM [facility] Total Protein 6.2 6.0 - 8.5 g/dL 07/28/2025 10:14 AM [facility] Albumin 3.4(L) 3.5 - 5.2 g/dL 07/28/2025 10:14 AM [facility] ALT (SGPT) 428(H) 1 - 33 U/L 07/28/2025 10:14 AM [facility] AST (SGOT) 97(H) 1 - 32 U/L 07/28/2025 10:14 AM [facility] Alkaline Phosphatase 188(H) 39 - 117 U/L 07/28/2025 10:14 AM [facility] Total Bilirubin 0.5 0.0 - 1.2 mg/dL 07/28/2025 10:14 AM [facility] Globulin 2.8 gm/dL 07/28/2025 10:14 AM [facility] Comment:Calculated Result A/G Ratio 1.2 g/dL 07/28/2025 10:14 AM [facility] BUN/Creatinine Ratio 41.6(H) 7.0 - 25.0 07/28/2025 10:14 AM EDT [facility] Anion Gap 11.9 5.0 - 15.0 mmol/L 07/28/2025 10:14 AM EDT [facility] eGFR 44.4(L) >60.0 mL/min/1.7 3 07/28/2025 10:14 AM EDT [facility] Blood Port / Unknown 07/28/2025 9: 26 AM EDT 07/28/2025 9:51 AM EDT Narrative [facility] - 07/28/2025 10:14 AM EDT GFR [...] MD LAB BLOOD ORDERABLES Sherry saucedo Result [facility]
[address] [place] [address], documented in this encounter Visit Diagnoses Diagnosis Malignant neoplasm of upper-outer quadrant of left breast in female, estrogen receptor positive- Primary Adenocarcinoma of 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 Encounter for care related to vascular access port documented in this encounter Administered Medications Inactive Administered Medications - up to 3 most recent administrations Medication Order MAR Action Action Date Dose Rate Site dexAMETHasone (DECADRON) IVPB 12 mg 12 mg, Intravenous, at 200 mL/hr, Administer over 15 Minutes, Once, On Sat07/28/25 at 1119, For 1 dose, Give 15 to 30 minutes prior to chemotherapy. Administer over 5-15 minutes.Indications:Adenocarc inoma of 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,Malignant neoplasm of upper-outer quadrant of left breast in female, estrogen receptor positive New Bag 07/28/2025 11:29 AM EDT 12 mg 200 mL/hr dextrose (D5W) 5 % infusion 250 mL 250 mL, Intravenous, at 20 mL/hr, Once, On Sat07/28/25 at 1119, For 1 doseIndications:Adenocarcinom a of 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,Malignant neoplasm of upper-outer quadrant of left breast in female, estrogen receptor positive New Bag 07/28/2025 12:05 PM EDT 250 mL 20 mL/hr fam-trastuzumab deruxtec-nxki (ENHERTU) 400 mg in dextrose (D5W) 5 % 120 mL chemo IVPB 400 mg, Intravenous, Administer over 30 Minutes, Once, On Sat07/28/25 at 1149, For 1 dose, NOT compatible with normal saline. Administer through 0.20 or 0.22 micron in-line PES or PS filter and IV set made of polyolefin or polybutadiene. Do not administer as IV push or bolus. Protect from light. Group 1 (Yellow) Hazardous Drug Antineoplastic - See Handling GuideIndications:Adenocarcino ma of 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,Malignant neoplasm of upper-outer quadrant of left breast in female, estrogen receptor positive New Bag 07/28/2025 12:07 PM EDT 400 mg 240 mL/hr heparin injection 500 Units 500 Units, Intravenous, As Needed, Line Care, Starting on Sat07/28/25 at 1117, Use for Implanted Ports.Indications:Encounter for care related to vascular access port Given 07/28/2025 12:48 PM EDT 500 Units palonosetron (ALOXI) injection 0.25 mg 0.25 mg, Intravenous, Administer over 0.5 Minutes, Once, On Sat07/28/25 at 1119, For 1 dose, Give 15 - 30 minutes prior to chemotherapy.Indications:Clemente ocarcinoma of 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,Malignant neoplasm of upper-outer quadrant of left breast in female, estrogen receptor positive Given 07/28/2025 11:27 AM EDT 0.25 mg documented in this encounter Care Teams High Density [employer] Coater Operator Relationship Specialty Start Date End Date Loretta Cuevas MD [address] [place] [address] PCP - General 12/19/15 07/28/25 documented as of this encounter
--- OUTSIDE RECORDS SUMMARY | 2025-07-28 09:00 | XMS_ITS | Encounter Summary ---
[facility] Address [address] [place] [address] Care Team Providers Care Wad Lubricator Name Role Phone Loretta Cuevas MD Primary Care Provider [phone] Encounter Details Date Type Department Care Team (Late st Contact Info) Description 07/28/2025 10:00 AM EDT Office Visit [facility] HEMATOLOGY & ONCOLOGY [address] [facility] [address] [place] [address] Valentina Sadler MD [address] [facility] [address] [place] [address] Adenocarcinoma of 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 (Primary Dx); Metastasis to bone; Malignant neoplasm metastatic to brain Social History Tobacco Use Types Packs/Day Years [...] care, and heating? Not very hard 07/15/2025 [facility] Occup[facility] ional [facility] - Occupational Stress Questionnaire Answer Date [...] for daily living? No 07/15/2025 [facility] Utilities Answer Date Recorded In the past 12 months has e electric, gas, oil, or water company [...] GED or equivalent No 07/15/2025 Preferred Language Wolof 07/15/2025 PHQ-2 Answer Date Recorded Patient Health Questionnaire-2 Score 0 07/15/2025 Comments No Sex and Gender Information Value Date Recorded Sex Assigned at Not on file Legal Sex Female 11:35 AM EDT Gender Identity Not on file Sexual Orientation Not on file documented as of this encounter Last Filed Vital Signs Vital Sign Reading Time Taken Comments Blood Pressure 126/68 07/28/2025 9:42 AM EDT RUE Pulse 88 07/28/2025 9:42 AM EDT Temperature 36.1 C (97 F) 07/28/2025 9:42 AM EDT Respiratory Rate 16 07/28/2025 9:42 AM EDT Oxygen Saturation 100% 07/28/2025 9:42 AM EDT RA Inhaled Oxygen Concentration - - Weight - - Height 170.2 cm (5' 7 ) 07/28/2025 9:42 AM EDT Body Mass Index - - documented in this encounter Progress Notes * Valentina Sadler MD - 07/28/2025 10:00 AM EDT PROBLEM LIST: Oncology/Hematology History Overview Note 1. Stage IIA, ER/WV positive, HER-2 positive left upper/outer quadrant breast [...] Liver and Bone Mets - ER negative, WV Negative and HER-2 positve Lab Results Component [...] 08/17/2021 Chemotherapy OP INFLUENZA IMMUNIZATION 01/11/2022 - 12/08/2024 Chemotherapy OP BREAST Fam-Trastuzumab Deruxtecan-nxki 12/09/2024 - 07/12/2025 Chemotherapy OP BREAST Neratinib - progression within the brain - treated with RT 07/28/2025 - Chemotherapy OP BREAST Fam-Trastuzumab Deruxtecan-nxki Adenocarcinoma [...] Tucatinib / Capecitabine / Trastuzumab-anns 01/11/2022 - 12/08/2024 Chemotherapy OP BREAST Fam-Trastuzumab Deruxtecan-nxki 12/12/2024 - [...] External Beam Radiation - EBRT. 01/11/2022 - 12/08/2024 Chemotherapy OP BREAST Fam-Trastuzumab Deruxtecan-nxki 07/16/2025 - 07/22/2025 Radiation Radiation OncologyTreatment Course: Peter Parnell received 2000 cGy in 5 fractions to c-spine via External Beam Radiation - EBRT. Brain metastases 09/06/2022 Initial Diagnosis Brain metastases (HCC) 09/10/2022 - 09/26/2022 Radiation Radiation OncologyTreatment Course: Robbin Patricia Parmjit received 3000 cGy in 10 fractions to whole brain via External Beam Radiation - EBRT. 12/12/2024 - 12/12/2024 Biopsy OP BREAST Neratinib Plan Provider: Valentina Sadler MD Treatment goal: Palliative Line of treatment: Third Line REASON FOR VISIT: Management of my recurrent breast cancer HISTORY OF PRESENT ILLNESS: 65 y.o. female presents today for follow-up after recent hospitalization with progressive brain metastases. Unfortunately this occurred while she was on Neratinib. I had taken her off Enhertu while she was getting her brain lesions controlled. Now she has been treated with radiation and so presentsto the clinic to resume Enhertu. I have taken her off neratinib. She still has considerable left-sided weakness. Functionally she is having trouble with ambulation without assistance. Mentally she isdoing well. Unfortunately support is very difficult at home. Past medical history, social history and family history was reviewed and unchanged from prior visit. Review of Systems: Review of Systems Constitutional: Positive for fatigue. HENT: Negative. Eyes: Negative. Respiratory: Negative. Cardiovascular: Positive for leg swelling. Gastrointestinal: Negative. Endocrine: Negative. Genitourinary: Positive for dysuria. Musculoskeletal: Positive for back pain. Skin: Negative. Neurological: Positive for numbness. Hematological: Negative. Psychiatric/Behavioral: Negative. Medications: Current Outpatient Medications: Alcohol Swabs (Alcohol Pads) 70 % pads, Apply 1 alcohol swab to injection site of skin immediately prior to insulin injection., Disp: 100 each, Rfl: 12 Blood Glucose Monitoring Suppl (Blood Glucose Monitor System) w/Device kit, Use to test blood sugarup to 4 Times a Day as needed., Disp: 1 each, Rfl: 0 Carboxymethylcellulose Sodium (EYE DROPS OP), Apply to eye(s) as directed by provider. Serum Tears,Disp: , Rfl: colestipol (COLESTID) 1 g tablet, Take 1 tablet by mouth 4 (Four) Times a Day., Disp: , Rfl: dexAMETHasone (DECADRON) 6 MG tablet, Take 1 tablet by mouth Every 12 (Twelve) Hours for 14 days., Disp: 28 tablet, Rfl: 0 dextrose (GLUTOSE) 40 % gel, Take 15 g by mouth Every 15 (Fifteen) Minutes As Needed for Low Blood Sugar (Blood sugar less than 70) for up to 30 days., Disp: 30 each, Rfl: 0 donepezil (Aricept) 10 MG tablet, Take 1 tablet by mouth Every Night., Disp: 30 tablet, Rfl: 5 erythromycin (ROMYCIN) 5 MG/GM ophthalmic ointment, APPLY A SMALL AMOUNT AT BEDTIME, Disp: , Rfl: famotidine (PEPCID) 20 MG tablet, Take 1 tablet by mouth Daily for 30 days., Disp: 30 tablet, Rfl: 0 glucose blood test strip, Use to test blood sugar up to 4 Times a Day as needed., Disp: 100 each, Rfl: 12 insulin glargine (LANTUS, SEMGLEE) 100 UNIT/ML injection, Inject 25 Units under the skin into the appropriate area as directed Every Night for 30 days., Disp: 10 mL, Rfl: 0 Insulin Lispro (humaLOG) 100 UNIT/ML injection, Inject 10 Units under the skin into the appropriatearea as directed 3 (Three) Times a Day With Meals., Disp: 10 mL, Rfl: 0 Insulin Syringe-Needle U-100 (BD Insulin Syringe Ultrafine) 31G X 5/16 1 ML misc, Inject 1 each under the skin into the appropriate area as directed 4 (Four) Times a Day As Needed (for insulin injections)., Disp: 100 each, Rfl: 12 Lancets misc, Use to test blood sugar up to 4 Times a Day as needed., Disp: 100 each, Rfl: 12 lidocaine-prilocaine (EMLA) 2.5-2.5 % cream, Apply 1 application topically to the appropriate area as directed as needed (45-60 minutes prior to port access. Cover with saran/plastic wrap)., Disp: 30g, Rfl: 5 loperamide (IMODIUM) 2 MG capsule, Take 1 capsule by mouth 4 (Four) Times a Day As Needed for Diarrhea., Disp: , Rfl: memantine (Namenda) 5 MG tablet, Take 1 tablet by mouth 2 (Two) Times a Day., Disp: 60 tablet, Rfl:5 [Paused] metFORMIN (GLUCOPHAGE) 500 MG tablet, Take 5 tablets by mouth Daily., Disp: 450 tablet, Rfl: 1 multivitamin with minerals tablet tablet, Take 1 tablet by mouth Daily., Disp: , Rfl: naloxone (NARCAN) 4 MG/0.1ML nasal spray, Call 911. Don't prime. Robinson in 1 nostril for overdose. Repeat in 2-3 minutes in other nostril if no or minimal breathing/responsiveness., Disp: 2 each, Rfl:0 [Paused] Neratinib (Nerlynx) 40 MG tablet chemo tablet, Take 4 tablets by mouth Daily., Disp: , Rfl: ondansetron (ZOFRAN) 8 MG tablet, Take 1 tablet by mouth 3 (Three) Times a Day As Needed for Nauseaor Vomiting., Disp: 30 tablet, Rfl: 5 oxyCODONE-acetaminophen (Percocet) 7.5-325 MG per tablet, Take 1 tablet by mouth Every 6 (Six) Hours As Needed for Moderate Pain for up to 3 days., Disp: 12 tablet, Rfl: 0 fluconazole (DIFLUCAN) 200 MG tablet, Take 1 tablet by mouth Daily., Disp: 5 tablet, Rfl: 0 No current facility-administered medications for this visit. ALLERGIES: No Known Allergies Physical Exam VITAL SIGNS: Vitals: 07/28/25 0942 BP: 126/68 Pulse: 88 Resp: 16 Temp: 97 ??F (36.1 ??C) SpO2: 100% 07/28/25 09 Weight: (Pt unable to weigh) Performance Status: 2 General: well appearing, in no acute distress HEENT: sclera anicteric, Lymphatics: no cervical, supraclavicular, or axillary adenopathy, Cardiovascular: regular rate and rhythm, no murmurs, rubs or gallops Lungs: clear to auscultation bilaterally Abdomen: soft, nontender, nondistended. No palpable organomegaly Extremities: no lower extremity edema Skin: no rashes, lesions, bruising, or petechiae Msk: Considerable left-sided weakness Psych: Mood is stable RECENT LABS: Lab Results Component Value Date HGB 8.7 (L) 07/28/2025 HCT 28.3 (L) 07/28/2025 MCV 85.2 07/28/2025 PLT 81 (L) 07/28/2025 WBC 8.30 07/28/2025 NEUTROABS 7.58 (H) 07/28/2025 LYMPHSABS 0.28 (L) 07/28/2025 MONOSABS 0.38 07/28/2025 EOSABS 0.00 07/28/2025 BASOSABS 0.01 07/28/2025 Lab Results Component Value Date GLUCOSE 274 (H) 07/28/2025 BUN 55.8 (H) 07/28/2025 CREATININE 1.34 (H) 07/28/2025 NA 134 (L) 07/28/2025 K 4.5 07/28/2025 CL 100 07/28/2025 CO2 22.1 07/28/2025 CALCIUM 8.7 07/28/2025 PROTEINTOT 6.2 07/28/2025 ALBUMIN 3.4 (L) 07/28/2025 BILITOT 0.5 07/28/2025 ALKPHOS 188 (H) 07/28/2025 AST 97 (H) 07/28/2025 ALT 428 (H) 07/28/2025 CT Abdomen Pelvis Without Contrast Result Date: [...] MD 06/15/2025 2:21 PM EDT Workstation ID: [id number] DxDesc DxDesc DxDesc CT Soft Tissue Neck Without Contrast Result [...] MD 06/15/2025 2:21 PM EDT Workstation ID: [id number] [facility] Without Contrast Diagnostic Result Date: [...] MD 06/15/2025 2:21 PM EDT Workstation ID: [id number] [facility] Brain Without Contrast Result Date: 06/10/2025 Impression: Evaluation of metastatic disease is limited in the absence of IV contrast. There is likely stable edema associated with previously noted metastatic lesions within the left cerebellum and right occipital lobe. No obvious new mass or mass effect is evident. Electronically Signed: Elvis covington MD 06/10/2025 2:29 PM EDT Workstation ID: [id number] [facility] With [facility] Without Contrast Result Date: 03/22/2025 Impression: Likely stable exam demonstrating persistent mildly edematous and enhancing small lesions of the right occipital lobe, left cerebellum and within the subcortical white matter of the right frontal lobe. No definite progression of these lesions or evidence of new intracranial metastasis. Electronically Signed: Elvis Koch MD 03/22/2025 10:21 AM EDT Workstation ID: [id number] CT Abdomen Pelvis With Contrast Result Date: 02/22/2025 Impression: 1.Multifocal sclerotic osseous metastases appear unchanged. No evidence of soft tissue metastasis within chest/abdomen/pelvis. 2.No acute process identified. 3.Mild splenomegaly. 4.Bilateral nonobstructing renal stones. Electronically Signed: Gabino Peace MD 02/22/2025 4:58 PM EDT Wor kstation ID: [id number] CT Chest With Contrast Diagnostic Result Date: 02/22/2025 Impression: 1.Multifocal sclerotic osseous metastases appear unchanged. No evidence of soft tissue metastasis within chest/abdomen/pelvis. 2.No acute process identified. 3.Mild splenomegaly. 4.Bilateral nonobstructing renal stones. Electronically Signed: Gabino Peace MD 02/22/2025 4:58 PM EDT Wor kstation ID: [id number] Assessment/Plan 1. Metastatic HER-2 positive breast cancer with liver and bone metastases and now with intracranialmetastases. Now that her intracranial and spinal cord lesions have been treated with radiation and go to resume Enhertu since her liver enzymes are starting to rise due to progressive disease. If it continues to do this with her next treatment I will likely switch her off of Enhertu to [place] toxo Margetuximab with chemotherapy if her performance status still remains reasonable 2. Bone metastases. She was on Xgeva [...] edema. She is taking hydrochlorothiazide currently. 5. Progressive brain and spinal lesions. Treated with radiation. Seems to have gotten better controlled. 6. Vision changes. Her vision is almost back to normal at this time. She is followed by ophthalmology. 7. Transaminitis secondary to progression in the liver. Will have to watch to see if this improves. Total time of patient care on day of service including time prior to, face to face with patient, and following visit spent in reviewing records, lab results, imaging studies, discussion with patient,and documentation/charting was >45 minutes. Valentina Sadler MD [facility] Hematology and Oncology No orders of the defined types were placed in this encounter. 07/28/2025 documented in this encounter Plan of Treatment Upcoming Encounters Date Type Department Care Team (Late st Contact Info) Description 08/18/2025 8:45 AM EST Appointment [facility] OUTPATIENT ONCOLOGY [address] [place] [address] 08/18/2025 9:15 AM EST Office Visit [facility] HEMATOLOGY & ONCOLOGY [address] [facility] [address] [place] [address] Valentina Sadler MD [address] [facility] [address] [place] [address] 08/18/2025 9:30 AM EST Appointment [facility] OUTPATIENT ONCOLOGY [address] [place] [address] 09/13/2025 1:00 PM EST Clinical Support [facility] [address] [place] [id number] Lita Luis APRN [address] [place] [address] documented as of this encounter Goals Goal Patient Goal Type Associated Problems Recent Progress Patient-Stated? Author Specialty Pharmacy General Goal General No Leighann Lam, PharmD Note: Clinical goal/therapeutic target: disease control, per the recent oncology clinic notes and labs. 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
--- OUTSIDE RECORDS SUMMARY | 2025-08-02 07:50 | XMS_ITS | Encounter Summary ---
[facility] Address [address] [place] [address] Care Team Providers Care Manager Membership Name Role Phone Provider, No Known Primary Care Provider Unavail able Reason for Visit * Auth/Cert (Routine) Specialty Diagnoses / Procedures Referred By Contac t Referred To Contact Referral ID Status Reason Start Date Expiration Date Visits Re quested Visits Authorized [id number] 1 1 Encounter Details Date Type Department Care Team (Late st Contact Info) Description 08/02/2025 7:50 AM EST Hospital Encounter [facility] [address] [facility] [address] [place] [address] Social History Tobacco Use Types Packs/Day Years [...] care, and heating? Not very hard 07/15/2025 [employer] [place] [facility] - Occupational Stress [...] things needed for daily living? No 07/15/2025 [facility] Utilities Answer Date Recorded In the [...] GED or equivalent No 07/15/2025 Preferred Language Romansh 07/15/2025 PHQ-2 Answer Date Recorded Patient Health [...] Info) Description 08/18/2025 8:45 AM EST Appointment [facility] OUTPATIENT ONCOLOGY [address] [place] [address] 08/18/2025 9:15 AM EST Office Visit [facility] HEMATOLOGY & ONCOLOGY [address] [address] Valentina Sadler MD [address] [address] 08/18/2025 9:30 AM EST Appointment [facility] OUTPATIENT ONCOLOGY [address] [place] [address] 09/13/2025 1:00 PM EST Clinical Support [facility] [address] [place] [address] Lita Luis APRN [address] [place] [address] documented as of this encounter Goals Goal Patient Goal Type Associated Problems Recent Progress Patient-Stated? Author Specialty Pharmacy General Goal General No Leighann Lam, PharmD Note: Clinical goal/therapeutic target: disease control, per the recent oncology clinic notes and labs. documented as of this encounter Visit Diagnoses Not on filedocumented in this encounter Care Teams Manager Membership Relationship Specialty Start Date End Date Provider, [place] [address] PCP - General 08/02/25 documented as of this encounter
--- OUTSIDE RECORDS SUMMARY | 2025-08-04 13:00 | XMS_ITS | Encounter Summary ---
Author Organization [facility] Address [address] [place] [id number] Care Team Providers Care Cellular Biologist Name Role Phone Provider, No Known Primary Care Provider Unavail able Reason for Referral * Diagnostic Imaging (Routine) - Closed Specialty Diagnoses / Procedures Referred By Contac t Referred To Contact Cardiology Diagnoses Left leg swelling Pressure injury of skin of left buttock, unspecified injury stage Procedures Duplex Venous Lower Extremity - Left CAR Valentina Sadler MD [address] [place] [address] Phone: tel: fax: [facility] NONINVASIVE LAB [address] [facility] [address] [place] [address] Phone: tel: fax: Referral ID Status Reason Start Date Expiration Date Visits Re quested Visits Authorized [id number] Closed 08/03/2025 08/03/2028 1 1 Reason for Visit * Diagnostic Imaging (Routine) - Closed Specialty Diagnoses / Procedures Referred By Contac t Referred To Contact Cardiology Diagnoses Left leg swelling Pressure injury of skin of left buttock, unspecified injury stage Procedures Duplex Venous Lower Extremity - Left CAR Valentina Sadler MD [address] [place] [address] Phone: tel: fax: [facility] NONINVASIVE LAB [address] [facility] [address] [place] [address] Phone: tel: fax: Referral ID Status Reason Start Date Expiration Date Visits Re quested Visits Authorized [id number] Closed 08/03/2025 08/03/2028 1 1 Encounter Details Date Type Department Care Team (Late st Contact Info) Description 08/04/2025 1:00 PM EST - 08/04/2025 11:59 PM EST Hospital Encounter [facility] NON[facility] [address] [facility] [address] [place] [address] Valentina Sadler MD [address] [facility] [address] [place], [place] [id number] Left leg swelling; Pressure injury of skin of left buttock, unspecified injury stage Discharge Disposition: Home or Self Care Social [...] care, and heating? Not very hard 07/15/2025 [facility] [place] of Occupat ional Health - Occupational Stress [...] things needed for daily living? No 07/15/2025 [facility] Utilities Answer Date Recorded In the past 12 months has th e [employer], gas, oil, or water [employer] threatened to shut off services in your [...] GED or equivalent No 07/15/2025 Preferred Language Russian 07/15/2025 PHQ-2 Answer Date Recorded Patient Health Questionnaire-2 Score 0 07/15/2025 Comments No Sex and Gender Information Value Date Recorded Sex Assigned at Not on file Legal Sex Female 11:35 AM EDT Gender Identity Not on file Sexual Orientation Not on file documented as of this encounter Last Filed Vital Signs Vital Sign Reading Time Taken Comments Blood Pressure - - Pulse - - Temperature - - Respiratory Rate - - Oxygen Saturation - - Inhaled Oxygen Concentration - - Weight 76 kg (167 lb 8.8 oz) 08/04/2025 1:40 PM EST Height - - Body Mass Index 26.24 07/28/2025 9:42 AM EDT documented in this encounter Medications at Time of Discharge Alcohol Swabs (Alcohol Pads) 70 % pads Apply 1 alcohol swab to injection site of skin immediately prior to insulin injection. 100 each 12 08/10/2025 9:59 AM EST 07/27/2025 Alcohol Swabs 70 % padsIndications:T ype 2 diabetes mellitus with other specified complication, unspecified whether halfway insulin use Use 1 each Take As Directed. Apply 1 alcohol swab to injection site of skin immediately prior to insulin injection. 100 each 12 07/29/2025 Blood Glucose Monitoring Suppl (Blood Glucose Monitor System) w/Device kit Use to test blood sugar up to 4 Times a Day as needed. 1 each 07/27/2025 3:43 PM EDT 07/27/2025 Blood Glucose Monitoring Suppl w/Device kitIndications:Ty pe 2 diabetes mellitus with other specified complication, unspecified whether halfway insulin use Use 1 kit Take As Directed. Use to test blood sugar up to 4 times a day as needed. 1 each 3 07/29/2025 Carboxymethylcell ulose Sodium (EYE DROPS OP) Apply to eye(s) [...] each 12 07/27/2025 3:43 PM EDT 07/27/2025 glucose blood test stripIndications: Type 2 diabetes mellitus with other specified complication, unspecified whether halfway insulin use Use to test blood sugar up to 4 times a day as needed. 100 each 12 07/29/2025 Insulin Glargine (LANTUS SOLOSTAR) 100 UNIT/ML injection penIndications:Ty pe 2 diabetes mellitus with other specified complication, unspecified whether manager terminal insulin use Inject 25 Units under the skin into the appropriate area as directed Every Night. 3 mL 5 07/29/2025 insulin glargine (LANTUS, SEMGLEE) 100 UNIT/ML injection Inject 25 Units under the skin into the appropriate area as directed Every Night for 30 days. 10 mL 07/27/2025 3:43 PM EDT 07/27/2025 5 Insulin Lispro (humaLOG) 100 UNIT/ML injection Inject 10 Units under the skin into the appropriate area as directed 3 (Three) Times a Day With Meals. 10 mL 07/27/2025 3:43 PM EDT 07/27/2025 5 Insulin Lispro, 1 Unit Dial, (HUMALOG) 100 UNIT/ML solution pen-injectorIndic ations:Type 2 diabetes mellitus with other specified complication, unspecified whether manager terminal insulin use Inject 10 Units under the skin into the appropriate area as directed 3 (Three) Times a Day With Meals. 3 mL 6 07/29/2025 Insulin Syringe-Needle U-100 (BD Insulin Syringe Ultrafine) [...] 12 07/27/2025 3:43 PM EDT 07/27/2025 Lancets miscIndications:T ype 2 diabetes mellitus with other specified complication, unspecified whether manager terminal insulin use Use 1 each Take As Directed. Use to test blood sugar up to 4 times a day as needed. 100 each 12 07/29/2025 lidocaine-priloca ine (EMLA) 2.5-2.5 % cream Apply 1 application [...] MG/0.1ML nasal spray Call 911. Don't prime. [place] in 1 nostril for overdose. Repeat in 2-3 minutes in other nostril if no or minimal breathing/respons iveness. 2 each 07/27/2025 3:43 PM EDT 07/27/2025 [employer] & Syringes miscIndications:T ype 2 diabetes mellitus with other specified complication, unspecified whether halfway insulin use Use 1 each Take As Directed. 120 each 12 07/29/2025 ondansetron (ZOFRAN) 8 MG tabletIndications :Malignant neoplasm metastatic to bone,[place] ma of 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,Malignant neoplasm of upper-outer quadrant of left breast in female, estrogen receptor positive Take 1 tablet by mouth 3 (Three) Times a Day As Needed for Nausea or Vomiting. 30 tablet 5 10/22/2024 11:25 AM EST 04/13/2024 oxybutynin XL (DITROPAN XL) 15 MG 24 hr tablet Take 1 tablet by mouth Daily. 30 tablet 2 08/02/2025 Rivaroxaban (XARELTO) tablet therapy pack starter packIndications:D VT/PE (active thrombosis) Take one 15 mg tablet twice daily with food for 21 days. Followed by one 20 mg tablet by mouth once daily with food. Take as directed 1 each 08/03/2025 dexAMETHasone (DECADRON) 6 MG tablet Take 1 tablet by mouth Every 12 (Twelve) Hours for 14 days. 28 tablet 07/27/2025 3:43 PM EDT 07/27/2025 documented as of this encounter Plan of Treatment Upcoming Encounters Date Type Department Care Team (Late st Contact Info) Description 08/18/2025 8:45 AM EST Appointment [facility] OUTPATIENT ONCOLOGY [address] [place] [address] 08/18/2025 9:15 AM EST Office Visit [facility]COLOGY [address] [address] Valentina Sadler MD [address] [address] 08/18/2025 9:30 AM EST Appointment [facility] OUTPATIENT ONCOLOGY [address] [place] [address] 09/13/2025 1:00 PM EST Clinical Support [facility] [address] [facility] [place] [id number] Lita Luis APRN [address] [place] [address] documented as of this encounter Goals Goal Patient Goal Type Associated Problems Recent Progress Patient-Stated? Author Specialty Pharmacy General Goal General No Leighann Lam, PharmD Note: Clinical goal/therapeutic target: disease control, per the recent oncology clinic notes and labs. documented as of this encounter Procedures Procedure Name Priority Date/Time Associated Diagnosis Comments DUPLEX VENOUS LOWER EXTREMITY LEFT CAR Routine 08/04/2025 1:40 PM EST Left leg swelling Pressure injury of skin of left buttock, unspecified injury stage documented in this encounter Results * Duplex Venous Lower Extremity - Left CAR (08/04/2025 1:40 PM EST) Right Common Femoral Spont Y Right Common Femoral Phasic Y Right Common Femoral Augment Y Left Common Femoral Spont Y Left Common Femoral Phasic Y Left Common Femoral Compress C Left Common Femoral Augment Y Left Saphenofemoral Junction Spont Y Left Saphenofemoral Junction Phasic Y Left Saphenofemoral Junction Compress C Left Saphenofemoral Junction Augment Y Left Profunda Femoral Spont Y Left Profunda Femoral Phasic Y Left Proximal Femoral Spont Y Left Proximal Femoral Phasic Y Left Proximal Femoral Compress C Left Proximal Femoral Augment Y Left Mid Femoral Spont Y Left Mid Femoral Phasic Y Left Mid Femoral Compress C Left Mid Femoral Augment Y Left Distal Femoral Spont Y Left Distal Femoral Phasic Y Left Distal Femoral Compress C Left Distal Femoral Augment Y Left Popliteal Spont Y Left Popliteal Phasic Y Left Popliteal Compress C Left Popliteal Augment Y Left Posterior Tibial Compress C Left Peroneal Compress C Left Gastronemius Compress C Left Greater Saph AK Compress C Left Greater Saph BK Compress C Left Lesser Saph Compress C Anatomical Region Laterality Modality Ultrasound Narrative 08/04/2025 2:35 PM EST This study is negative for DVT or superficial vein thrombosis of the left lower extremity. Study Findings - Left Left sided additional findings: All LLE deep and superficial veins appear patent and compressible during time of exam. No sonographic evidence of thrombus seen. No prior exam for comparison. Additional Study Details The study is technically good for diagnosis. us Valentina Sadler MD CV VASCULAR ORDERABLES Fi nal Result documented in this encounter Visit Diagnoses Diagnosis Left leg swelling Pressure injury of skin of left buttock, unspecified injury stage documented in this encounter Care Teams Cellular Biologist Relationship Specialty Start Date End Date Provider, [place] [address] PCP - General 08/02/25 documented as of this encounter
--- OUTSIDE RECORDS SUMMARY | 2025-08-05 11:30 | XMS_ITS | Encounter Summary ---
Author Organization [facility] Address [address] [place] [address] Care Team Providers Care Sole Cementer Name Role Phone Provider, No Known Primary Care Provider Unavail able Encounter Details Date Type Department Care Team (Latest Contact Info) Description 08/05/2025 11:30 AM EST - 08/05/2025 11:59 PM [facility] Hospital Encounter [facility] [address] [facility] [address] [place] [id number] Discharge Disposition: Home or Self Care Social [...] care, and heating? Not very hard 07/15/2025 [facility] [place] of Occupat ional Health - Occupational Stress [...] things needed for daily living? No 07/15/2025 [facility] Utilities Answer Date Recorded In the past 12 months has th [employer], gas, oil, or water company threatened [...] GED or equivalent No 07/15/2025 Preferred Language Lao 07/15/2025 PHQ-2 Answer Date Recorded Patient Health [...] mellitus with other specified complication, unspecified whether terminal operations manager insulin use Use 1 each Take As [...] mellitus with other specified complication, unspecified whether terminal operations manager insulin use Use 1 kit Take As [...] mellitus with other specified complication, unspecified whether terminal operations manager insulin use Use to test blood sugar up to 4 times a day as needed. 100 each 12 07/29/2025 Insulin Glargine (LANTUS SOLOSTAR) 100 UNIT/ML injection penIndications:Ty pe 2 diabetes mellitus with other specified complication, unspecified whether fdc insulin use Inject 25 Units under the [...] mellitus with other specified complication, unspecified whether fdc insulin use Inject 10 Units under the [...] mellitus with other specified complication, unspecified whether fdc insulin use Use 1 each Take As [...] MG/0.1ML nasal spray Call 911. Don't prime. [place] in 1 nostril for overdose. Repeat in 2-3 minutes in other nostril if no or minimal breathing/respons iveness. 2 each 07/27/2025 3:43 PM EDT 07/27/2025 [employer] & Syringes miscIndications:T ype 2 diabetes mellitus with other specified complication, unspecified whether fdc insulin use Use 1 each Take As [...] Info) Description 08/18/2025 8:45 AM EST Appointment [facility] OUTPATIENT ONCOLOGY [address] [place] [address] 08/18/2025 9:15 AM EST Office Visit [facility] HEMATOLOG[facility] & ONCOLOGY [address] [address] Valentina Sadler MD [address] [address] 08/18/2025 9:30 AM EST Appointment [facility] OUTPATIENT ONCOLOGY [address] [place] [address] 09/13/2025 1:00 PM EST Clinical Support [facility] [address] [place] [address] Lita Luis APRN [address] [place] [address] documented as of this encounter Goals Goal Patient Goal Type Associated Problems Recent Progress Patient-Stated? Author Specialty Pharmacy General Goal General Leighann Gallo, PharmD Note: Clinical goal/therapeutic target: disease control, per the recent oncology clinic notes and labs. documented as of this encounter Visit Diagnoses Not on filedocumented in this encounter Care Teams Sole Cementer Relationship Specialty Start Date End Date Provider, [place] [address] PCP - General 08/02/25 documented as of this encounter
--- OUTSIDE RECORDS SUMMARY | 2025-08-06 14:51 | XMS_ITS | Encounter Summary ---
Author Organization [facility] Address [address] [place] [id number] Care Team Providers Care Labor Commissioner Name Role Phone Provider, No Known Primary Care Provider Unavail able Reason for Visit * Reason Comments Initial Evaluation * Consultation (Routine) - Authorized Specialty Diagnoses / Procedures Referred By Contac t Referred To Contact Physical Therapy Diagnoses Pressure injury of skin of left buttock, unspecified injury stage Procedures PA OFFICE/OUTPATIENT NEW MODERATE MDM 45 MINUTES Valentina Sadler MD [address] [facility] [address] [place] [address] Phone: tel: fax: [facility] OUTPATIENT PHYSICAL THERAPY [address] [place] [address] Phone: tel: fax: Referral ID Status Reason Start Date Expiration Date Visits Requested Visits Authorized [id number] Authorized Specialty Services Required 08/03/2025 11/02/2026 20 20 Encounter Details Date Type Department Care Team (Latest Contact Info) Description 08/06/2025 2:51 PM EST - 08/06/2025 11:59 PM EST Hospital Encounter [facility] OUTPATIENT PHYSICAL THERAPY [address] [place] [address] John Devine, PT Pressure injury of sacral region, stage 2 (Primary Dx) Discharge Disposition: Home or Self Care Social [...] care, and heating? Not very hard 07/15/2025 [facility] of Occupat ional Health - Occupational Stress [...] for daily living? No 07/15/[address] [facility] Utilities Answer Date Recorded In [...] GED or equivalent No 07/15/2025 Preferred Language Indonesian 07/15/2025 PHQ-2 Answer Date Recorded Patient Health [...] mellitus with other specified complication, unspecified whether long term care social worker insulin use Use 1 each Take As [...] mellitus with other specified complication, unspecified whether long term care social worker insulin use Use 1 kit Take As [...] mellitus with other specified complication, unspecified whether jail insulin use Use to test blood sugar up to 4 times a day as needed. 100 each 12 07/29/2025 Insulin Glargine (LANTUS SOLOSTAR) 100 UNIT/ML injection penIndications:Ty pe 2 diabetes mellitus with other specified complication, unspecified whether jail insulin use Inject 25 Units under the [...] mL 07/27/2025 3:43 PM EDT 07/27/2025 Insulin Lispro, 1 Unit Dial, (HUMALOG) 100 UNIT/ML solution pen-injectorIndic ations:Type 2 diabetes mellitus with other specified complication, unspecified whether long term care social worker insulin use Inject 10 Units under the [...] mellitus with other specified complication, unspecified whether long term care social worker insulin use Use 1 each Take As [...] MG/0.1ML nasal spray Call 911. Don't prime. [place] in 1 nostril for overdose. Repeat in 2-3 minutes in other nostril if no or minimal breathing/respons iveness. 2 each 07/27/2025 3:43 PM EDT 07/27/2025 [facility] Syringes miscIndications:T ype 2 diabetes mellitus with other specified complication, unspecified whether long term care social worker insulin use Use 1 each Take As [...] EDT 07/27/2025 documented as of this encounter Miscellaneous Notes * Therapy Evaluation - John Devine, PT - 08/06/2025 3:00 PM EST Images from the original note were not included. Outpatient Rehabilitation - Wound/Debridement Initial Eval CONNOR Aggarwal Patient Name: Peter Parnell : 1960 Today's Date: 08/06/2025 Admit Date: 08/06/2025 Visit Dx: ICD-10-CM ICD-9-CM 1. Pressure injury of sacral region, stage 2 L89.152 707.03 707.22 Sacrum Patient Active Problem List Diagnosis Malignant neoplasm [...] OF SCALP; Surgeon: Evens Wagner MD; Location: [facility]; Service: General; Laterality: Right; LIVER BIOPSY 09/22/2019 OOPHORECTOMY PORTACATH PLACEMENT Right 2019 SKIN FULL THICKNESS GRAFT Right 12/02/2020 Procedure: FULL THICKNESS SKIN GRAFT, RESECTION OF TUMOR OF RIGHT NECK; Surgeon: Evens Wagner MD; Location: [facility]; Service: General; Laterality: Right; Patient History Row Name 08/06/25 1600 History Chief Complaint Pain;Ulcer, wound or other skin conditions - Type of Pain Other pain Sacrum - Date Current Problem(s) Began -- Approximately 2 weeks ago - Brief Description of Current Complaint Pt was recently admitted to [facility] where pt reprots she layed supine for extended hours in the bed and developed a pressure injury. Presenting for treatment of wound. Of note, pt with history of cancer with brain mets, L sided weakness, and bowel/bladder disfunction complicating wound healing. - Previous treatment for THIS PROBLEM Other (comment) calamine lotion - Patient/Caregiver Goals Heal wound;Relieve pain - Patient/Caregiver Goals Comment Wound healing. - Patient's Rating of General Health Fair - How has patient tried to help current problem? Left MORTGAGE CLOSER, covered with calamine lotion -LH Pain Pain Location Sacrum -LH Pain at Present 2 -LH Services Are you currently receiving Home Health services No -LH Do you plan to receive Home Health services in the near future Yes -LH Daily Activities Primary Language Indonesian -LH Are you able to read Yes -LH Are you able to write Yes -LH How does patient learn best? Demonstration;Listening;Reading - Teaching needs identified Management of Condition - Barriers to learning None - Pt Participated in POC and Goals Yes -LH User Kemp (r) = Recorded By, (t) = Taken By, (c) = Cosigned By Initials Name Provider Type John Devine, PT Physical Therapist EVALUATION PT Ortho Row Name 08/06/25 1600 Subjective Subjective Comments Pt/family reports pt was not turned frequent enough during recent hospital admission which caused pt to develop a pressure injury. Reports she is incontinent of bladder so keepingdressings/brief dry is difficult, however they have been using a donut cushion and calamine lotion to attempt to heal the wound. - Subjective Pain Able to rate subjective pain? yes -LH Pre-Treatment Pain Level 2 -LH Post-Treatment Pain Level 2 -LH Transfers Bed-Chair [place] (Transfers) moderate assist (50% patient effort);1 person assist - Chair-Bed [place] (Transfers) moderate assist (50% patient effort);1 person assist - Comment, (Transfers) RSL for tx, to/from dept in transport chair. - User Kemp (r) = Recorded By, (t) = Taken By, (c) = Cosigned By Initials Name Provider Type John Devien, PT Physical Therapist LDA Wound Row Name 08/06/25 1600 Wound 08/06/25 midline sacral spine Pressure Injury Wound - Properties Group Placement Date: 08/06/25 - Present on Original Admission: Y -LH Orientation: midline -LH Location: sacral spine -LH Primary Wound Type: Pressure Inj -LH Wound Image Images linked: 1 -LH Dressing Appearance open to air -LH Confirmed Empty Wound Bed Yes, visual inspection of wound bed -LH Base moist;red -LH Periwound intact;dry;warm -LH Periwound Temperature warm -LH Periwound Skin Turgor soft -LH Edges open;irregular -LH Wound Length (cm) 4.6 cm -LH Wound Width (cm) 3 cm -LH Wound Depth (cm) 0.1 cm - Wound Surface Area (cm^2) 10.84 cm^2 - Wound Volume (cm^3) 0.723 cm^3 - Drainage Characteristics/Odor serosanguineous - Drainage Amount scant - Care, Wound cleansed with;soap and water;debrided - Dressing Care dressing changed;silver impregnated;low-adherent;foam;silicone border foam Mepilex Ag, sacral Allevyn - Periwound Care cleansed with pH balanced cleanser;dry periwound area maintained;barrier ointment applied;barrier film applied;other (see comments) Alfonzocarrieshukri - Retired Wound - Properties Group Placement Date: 08/06/25 - Present on Original Admission: Y -LH Orientation: midline -LH Location: sacral spine - Retired Wound - Properties Group Placement Date: 08/06/25 - Present on Original Admission: Y -LH Orientation: midline -LH Location: sacral spine - Retired Wound - Properties Group Date first assessed: 08/06/25 - Present on Original Admission: Y-LH Location: sacral spine - User Kemp (r) = Recorded By, (t) = Taken By, (c) = Cosigned By Initials Name Provider Type John Devine, PT Physical Therapist WOUND DEBRIDEMENT Total area of Debridement: Nonselective debridement Debridement Site 1 Location- Site 1: Sacral spine Selective Debridement- Site 1: Wound Surface <20cmsq Instruments- Site 1: other (comment) (4x4 gauze) Excised Tissue Description- Site 1: minimum, other (comment) (Nonviable, peeling periwound tissues) Bleeding- Site 1: scant Therapy Education Row Name 08/06/25 1600 Therapy Education Education Details Reviewed signs/symptoms of infection and when to seek medical attention. Reviewedimportance of keeping dressings dry and intact at all times, do not leave wound open to air and do not get wound wet in the shower. Change the dressing every 2 days or PRN based on soiling/disruptionof dressing. Reviewed proper dressing change procedure. Reviewed methods for offloading area including use of waffle cushion and frequent turns, reviewed importance of keeping area dry to reduce MASD. - Given Symptoms/condition management;Bandaging/dressing change - Program New - How Provided Verbal;Demonstration - Provided to Patient;Other (comment) family - Level of Understanding Teach back education performed;Verbalized - User Kemp (r) = Recorded By, (t) = Taken By, (c) = Cosigned By Initials Name Provider Type John Devine, PT Physical Therapist Recommendation and Plan PT Assessment/Plan Row Name 08/06/25 1600 PT Assessment Functional Limitations Performance in self-care ADL;Other (comment) wound management - Impairments Pain;Integumentary integrity - Assessment Comments PT wound care initial evaluation complete. Pt presenting with complex sacral spine/L medial gluteal stage 2 pressure injury complicated by poor mobility and bowl/bladder dysfunction. PT applied Mepilex Ag and Sacral allevyn to help cover wound and dispearse pressure. PT also applied zguard to periwound to help prevent additional moisture related skin breadown. PT provided pt with waffle cushion to help offload area during sitting to allow optimal wound healing potential. Pt would continue to benefit from further debridement PRN and advanced wound dressing management to promote optimal wound healing potential, however pt seeking so PT will plan to DC pt from OP PT wound care services if pt proceeds with services. - Rehab Potential Good - Patient/caregiver participated in establishment of treatment plan and goals Yes - Patient would benefit from skilled therapy intervention Yes - PT Plan PT Frequency 1x/week;Other (comment) every 1-2 weeks - Predicted Duration of Therapy Intervention (PT) 4 visits - Planned CPT's? PT EVAL MOD COMPLELITY: 91906;PT SELF CARE/MGMT/TRAIN 15 MIN: 98036;PT NONSELECT DEBRIDE 15 MIN: 91794;PT FRANCISCO DEBRIDE OPEN WOUND UP TO 20 CM: 93982;PT NLFU MIST: [id number] - Physical Therapy Interventions (Optional Details) wound care;patient/family education - PT Plan Comments Debridement, dressings - User Kemp (r) = Recorded By, (t) = Taken By, (c) = Cosigned By Initials Name Provider Type John Devine, PT Physical Therapist Goals PT OP Goals Row Name 08/06/25 1616 08/06/25 1600 PT Short Term Goals STG 1 -- Pt will verbalize signs/symptoms of infection and when to seek medical attention. - STG 1 Progress -- New - STG 2 -- Pt will demonstrate 50% decrease in wound area as evidence of wound healing. - STG 2 Progress -- New - Foreign Language Teacher Goals LTG 1 -- Pt/family to demonstrate independence with home dressing management to promote return to PLOF. - LTG 1 Progress -- New - LTG 2 -- Pt will demonstrate 90% decrease in wound area as evidence of wound healing. - LTG 2 Progress -- New - Time Calculation PT Goal Re-Cert Due Date 11/04/25 - 11/04/25 - User Kemp (r) = Recorded By, (t) = Taken By, (c) = Cosigned By Initials Name Provider Type John Devine, PT Physical Therapist Time Calculation: Start Time: 1500 Untimed Charges PT Eval/Re-eval Minutes: 40 Wound Care: 20294 Non-selective debridement [id number] debridement: 20 Total Minutes Untimed Charges Total Minutes: 60 Total Minutes: 60 Therapy Charges for Today Code Description Service Date Service Provider Modifiers Qty [id number] HC PT EVAL MOD COMPLEXITY 3 08/06/2025 John Devine, PT GP 1 [id number] HC NONSELECTIVE DEBRIDEMENT 08/06/2025 John Devine, PT GP 1 John Devine PT 08/06/2025 documented in this encounter Plan of Treatment Upcoming Encounters Date Type Department Care Team (Late st Contact Info) Description 08/18/2025 8:45 AM EST Appointment [facility] OUTPATIENT ONCOLOGY [address] [place] [address] 08/18/2025 9:15 AM EST Office Visit [facility] HEMATOLOG[facility] & ONCOLOGY [address] [facility] [address] [place] [address] Valentina Sadler MD [address] [facility] [address] [place] [address] 08/18/2025 9:30 AM EST Appointment [facility] OUTPATIENT ONCOLOGY [address] [place] [address] 09/13/2025 1:00 PM EST Clinical Support [facility] [address] [place] [address] Lita Luis APRN [address] [place] [address] documented as of this encounter Goals Goal Patient Goal Type Associated Problems Recent Progress Patient-Stated? Author Specialty Pharmacy General Goal General No Leighann Lam, PharmD Note: Clinical goal/therapeutic target: disease control, per the recent oncology clinic notes and labs. documented as of this encounter Visit Diagnoses Diagnosis Pressure injury of sacral region, stage 2- Primary documented in this encounter Care Teams Labor Commissioner Relationship Specialty Start Date End Date Provider, [place] [address] PCP - General 08/02/25 documented as of this encounter
--- OUTSIDE RECORDS SUMMARY | 2025-08-10 09:38 | XMS_ITS | Encounter Summary ---
Author Organization [facility] Address [address] [place] [address] Care Team Providers Care Honing Job Setter Name Role Phone Provider, No Known Primary Care Provider Unavail able Encounter Details Date Type Department Care Team (Latest Contact Info) Description 08/10/2025 9:38 AM EST - 08/10/2025 11:59 PM [facility] Hospital Encounter [facility] [address] [facility] [address] [place] [id number] Discharge Disposition: Home or Self Care Social [...] care, and heating? Not very hard 07/15/2025 [facility] of Occupat ional Health - Occupational Stress [...] things needed for daily living? No 07/15/2025 [facility] Utilities Answer Date Recorded In the past 12 months has th [employer] electric, gas, oil, or water company threatened [...] GED or equivalent No 07/15/2025 Preferred Language Azeri 07/15/2025 PHQ-2 Answer Date Recorded Patient Health [...] mellitus with other specified complication, unspecified whether senior care insulin use Use 1 each Take As [...] mellitus with other specified complication, unspecified whether emt intermediate insulin use Use 1 kit Take As [...] mellitus with other specified complication, unspecified whether emt intermediate insulin use Use to test blood sugar up to 4 times a day as needed. 100 each 12 07/29/2025 Insulin Glargine (LANTUS SOLOSTAR) 100 UNIT/ML injection penIndications:Ty pe 2 diabetes mellitus with other specified complication, unspecified whether emt intermediate insulin use Inject 25 Units under the [...] mellitus with other specified complication, unspecified whether senior care insulin use Inject 10 Units under the [...] mellitus with other specified complication, unspecified whether emt intermediate insulin use Use 1 each Take As [...] MG/0.1ML nasal spray Call 911. Don't prime. [place] in 1 nostril for overdose. Repeat in 2-3 minutes in other nostril if no or minimal breathing/respons iveness. 2 each 07/27/2025 3:43 PM EDT 07/27/2025 [facility] Syringes miscIndications:T ype 2 diabetes mellitus with other specified complication, unspecified whether senior care insulin use Use 1 each Take As [...] food. Take as directed 1 each 08/03/2025 documented as of this encounter Plan of Treatment Upcoming Encounters Date Type Department Care Team (Late st Contact Info) Description 08/18/2025 8:45 AM EST Appointment [facility] OUTPATIENT ONCOLOGY [address] [place] [address] 08/18/2025 9:15 AM EST Office Visit [facility] HEMATOLOGY & ONCOLOGY [address] [address] Valentina Sadler MD [address] [address] 08/18/2025 9:30 AM EST Appointment [facility] OUTPATIENT ONCOLOGY [address] [place] [address] 09/13/2025 1:00 PM EST Clinical Support [facility] [address] [place] [address] Lita Luis APRN [address] [place] [address] documented as of this encounter Goals Goal Patient Goal Type Associated Problems Recent Progress Patient-Stated? Author Specialty Pharmacy General Goal General No Leighann Lam, PharmD Note: Clinical goal/therapeutic target: disease control, per the recent oncology clinic notes and labs. documented as of this encounter Visit Diagnoses Not on filedocumented in this encounter Care Teams Honing Job Setter Relationship Specialty Start Date End Date Provider, [place] [address] PCP - General 08/02/25 documented as of this encounter
[2025-08-15] VITALS (19 sets, daily range): BP systolic 42–96; BP diastolic 25–39; PULSE 62–131; RESP 12–28; TEMP 36–37.1; O2SAT 67–100; BMI 23.6; BMI 30.4
--- NOTE | 2025-08-15 09:20 | XR_ITS ---
PROCEDURE INFORMATION: Exam: XR Chest Exam date and time: 08/15/2025 9:38 AM Age: 65 years old Clinical indication: Shortness of breath; Additional info: AMS TECHNIQUE: Imaging protocol: Radiologic exam of the chest. Views: 1 view. COMPARISON: CT ABDOMEN PELVIS WO CON 12/11/2021 8:15 PM FINDINGS: Tubes, catheters and devices: The right-sided port ends in the SVC. Lungs: Patchy opacities in the left lung base likely represent atelectasis or infection. Mild patchy opacities are also noted in the right lung base. Pleural spaces: Unremarkable. No pleural effusion. No pneumothorax. Heart/Mediastinum: Unremarkable. No cardiomegaly. Bones/joints: Unremarkable. IMPRESSION: Patchy opacities in the left lung base likely represent atelectasis or infection. Mild patchy opacities are also noted in the right lung base. The right-sided port ends in the SVC.
--- NOTE | 2025-08-15 09:22 | HMH.EDGENADL ---
Discharge Plan Prescriptions Prescriptions: No Action capecitabine 500 MG tablet 500 mg PO DAILY oxycodone-acetaminophen 1 EACH tablet 1 each PO Q4-6H PRN (Reason: pain) tucatinib 150 MG tablet 150 mg PO DAILY Referrals Follow up/Referrals: Provider,Referral, [Referring, Medical] - See instructions Clinical Impressions Clinical Impression: Acute hypoxic respiratory failure, AMS (altered mental status) Print Language Print Language: Libyan Discharge ED Provider: Nitish Walls General Adult HPI General Chief complaint: Shortness of Breath/Dyspnea Stated complaint: Unresponsive Time Seen by Provider: 08/15/25 09:20 History of Present Illness HPI narrative: Peter Parnell is a 65y female with a history of metastatic breast cancer to the brain, liver, spine, lungs who presents to the emergency department via EMS from home for decreased level of consciousness and low oxygen. Per EMS, her oxygen was in the 50s when they arrived. They put in a nasal airway and stated the patient was completely unresponsive but had a pulse. Fingerstick within appropriate range. Patient's oxygenation improved to the 90s with bag valve mask ventilation. Reportedly, stated that he did not want to any escalation of care but did not have a formal DNR. Patient arrives as a GCS of 4 and is currently seeing back valve ventilation. Per EMS, she was initially bradycardic with heart rate in the 40s and received atropine with improvement into the 130s. She was hypotensive and improved somewhat and route as well. Related Data Home Medications ?Medication ?Instructions ?Recorded ?Confirmed capecitabine 500 mg tablet 500 mg PO DAILY cancer treatment 12/11/21 12/11/21 oxycodone-acetaminophen 7.5 mg-325 1 each PO Q4-6H PRN pain 12/11/21 12/11/21 mg tablet tucatinib 150 mg tablet 150 mg PO DAILY cancer treatment 12/11/21 12/11/21 Allergies Allergy/AdvReac Type Severity Reaction Status Date / Time No Known Allergies Allergy Verified 12/11/21 19:58 [facility] Disclaimer: The information contained in this section may have been updated after the patient was seen, as this information can be updated by other users. Social History Smoking Status: Never smoker alcohol intake: never current occupational status: other Travel in the last 8 weeks?: None Other Medical History Have you received the Flu Vaccine for this season: Yes Have you received the Pneumonia Vaccine: Yes ROS Obtained: Yes Systems reviewed as appropriate & no additional complaints except as documented Physical Exam General General appearance: other Comment: Unresponsive, agonal breathing, currently receiving bag valve mask ventilation Head Head exam: atraumatic Eye Eye exam: Present PERRL (Pupils 3 mm and nonreactive) ENT ENT exam: Present normal external ear exam Neck Neck exam: Present full ROM Chest Chest inspection: Present symmetric chest wall rise Respiratory Respiratory exam: Present normal lung sounds bilaterally and respiratory distress; Absent wheezes or stridor Cardiovascular Cardiovascular exam: Present normal rhythm and tachycardia Abdominal Exam Abdominal exam: Present soft; Absent tenderness or guarding Comment: Bruising in multiple stages of healing throughout the abdomen Extremities Exam Extremities exam: Present normal inspection Back Exam Back exam: Present normal inspection Neurological Exam Neurological exam: Present other (GCS 6. She will withdraw to pain in the left upper extremity only. No verbal response. No eye-opening.) Skin Skin exam: Present other (Pale) Medical Decision Making Medical Records Screening: Per USPSTF and CDC recommendations, given the prevalence of disease in our region, it is our hospital?s policy to screen for HIV and viral Hepatitis for all patients aged 18 and over and those with ongoing risk factors. Mukesh Inquiry Pt receiving controlled substance: No Vital Signs: 08/15/25 09:14 08/15/25 09:18 08/15/25 09:20 Pulse Rate 131 H 122 H Pulse Rate [Radial] Respiratory Rate 21 28 H 21 Blood Pressure 81/32 L 78/39 L 77/38 L Blood Pressure [Left Arm] Blood Pressure Mean [Left Arm] Blood Pressure Source [Left Arm] Blood Pressure Position [Left Arm] 02 Sat by Pulse Oximetry 92 L 100 Oxygen Delivery Method Non-Rebreather Non-Rebreather Non-Rebreather Oxygen Flow Rate (LPM) 15 15 15 08/15/25 09:22 08/15/25 09:25 08/15/25 09:32 Pulse Rate 127 H Pulse Rate [Radial] 129 H Respiratory Rate 12 23 18 Blood Pressure 77/28 L 42/25 L Blood Pressure [Left Arm] 77/28 L Blood Pressure Mean [Left Arm] 44 Blood Pressure Source [Left Arm] Automatic Cuff Blood Pressure Position [Left Arm] Supine 02 Sat by Pulse Oximetry 91 L 98 Oxygen Delivery Method Non-Rebreather Non-Rebreather Non-Rebreather Oxygen Flow Rate (LPM) 15 15 08/15/25 09:35 Pulse Rate 127 H Pulse Rate [Radial] Respiratory Rate 25 H Blood Pressure 60/31 L Blood Pressure [Left Arm] Blood Pressure Mean [Left Arm] Blood Pressure Source [Left Arm] Blood Pressure Position [Left Arm] 02 Sat by Pulse Oximetry 98 Oxygen Delivery Method Non-Rebreather Oxygen Flow Rate (LPM) 15 Lab Data Lab Results 08/15/25 09:15: WBC 1.4 L*, RBC 2.44 L, Hgb 6.3 L*, Hct 21.2 L, MCV 86.9, MCH 25.8 L, MCHC 29.7 L, RDW 19.1 H, Plt Count 58 L, MPV 10.9 H, Neut % (Auto) 72.4, Lymph % (Auto) 17.0, [place] % (Auto) 9.9 H, Eos % (Auto) 0.0 L, Baso % (Auto) 0.0 L, Neut # (Auto) 1.0 L, Lymph # (Auto) 0.2 L, [place] # (Auto) 0.1, Eos # (Auto) 0.0, Baso # (Auto) 0.0, PT 11.4, INR 1.03, APTT 65.4 H*, VBG pH 7.43 H, VBG pCO2 24.5 L, VBG pO2 164.1 H, VBG HCO3 15.7 L, VBG Total CO2 16.5 L, VBG O2 Saturation 98.5 H, VBG Base Excess -8.7 L, VBG Lactic Acid 4.5 H, Sodium 140, Potassium 3.5, Chloride 110 H, Carbon Dioxide 23, Anion Gap 10.5, BUN 28 H, Creatinine 1.50 H, Estimated Creat Clear 54, Estimated GFR 35 L, Est GFR ( Amer) 42 L, Glucose 117 H, Calcium 7.9 L, Total Bilirubin 0.4, AST 44 H, ALT 95 H, Alkaline Phosphatase 125, Troponin I 0.05 H, NT-Pro-B Natriuret Pep 1850 H, Total Protein 4.8 L D, Albumin 2.2 L, Globulin 2.6, Albumin/Globulin Ratio 0.8 L 08/15/25 09:15 08/15/25 09:15 Orders (Tests/Meds): ED MEDICATIONS Generic Name Dose Route Start Last Admin Trade Name Freq PRN Reason Stop Dose Admin Glycopyrrolate 0.2 mg 08/15/25 10:01 Glycopyrrolate 0.2 Mg/Ml 1ml Vial IV 09/14/25 10:00 Q6HP PRN Secretions Lactated Ringer's 1,000 mls @ 999 mls/hr 08/15/25 09:20 08/15/25 09:42 Lactated Ringer's 1000 Ml Bag IV 08/15/25 10:20 999 mls/hr .Q1H1M ONE Administration Lactated Ringer's 1,000 mls @ 999 mls/hr 08/15/25 09:25 08/15/25 09:42 Lactated Ringer's 1000 Ml Bag IV 08/15/25 10:25 999 mls/hr .Q1H1M ONE Administration Morphine Sulfate 4 mg 08/15/25 10:01 Morphine 4mg/Ml Syringe IV 09/14/25 10:00 Q3HP PRN Severe Pain (7-10) ORDERS Category Date Time Status CXR --portable [XR chest portable] Stat Exams 08/15/25 09:20 Taken BNP [NT Pro Brain Natriuretic Pep.] Stat Lab 08/15/25 09:15 Completed CBC w/Auto Diff [Complete Blood Count Auto Diff] Stat Lab 08/15/25 09:15 Results CMP [Comprehensive Metabolic Panel] Stat Lab 08/15/25 09:15 Completed HIV Combo Stat Lab 08/15/25 09:15 Received Hepatitis C Ab Qual. W/ RFX Stat Lab 08/15/25 09:15 Received PT INR [Prothrombin Time INR] Stat Lab 08/15/25 09:15 Completed PTT [Activated Partial Thrombo Time] Stat Lab 08/15/25 09:15 Completed Troponin I Q3H Lab 08/15/25 12:30 Ordered Troponin I Q3H Lab 08/15/25 15:30 Ordered Troponin I Stat Lab 08/15/25 09:15 Completed VBG [Venous Blood Gas] Stat RT 08/15/25 09:15 Completed EKG Request [ECG Request] Stat Y 08/15/25 09:25 Ordered Medical Decision Narrative: Peter Parnell is a 65y female with a history of metastatic breast cancer to the brain, liver, spine, lungs who presents to the emergency department via EMS from home for decreased level of consciousness and low oxygen. Per EMS, her oxygen was in the 50s when they arrived. They put in a nasal airway and stated the patient was completely unresponsive but had a pulse. Fingerstick within appropriate range. Patient's oxygenation improved to the 90s with bag valve mask ventilation. Reportedly, stated that he did not want to any escalation of care but did not have a formal DNR. Patient arrives as a GCS of 4 and is currently seeing back valve ventilation. Per EMS, she was initially bradycardic with heart rate in the 40s and received atropine with improvement into the 130s. She was hypotensive and improved somewhat and route as well. On arrival, patient is hypotensive with blood pressures in the 70s over 30s, started on 2 L of lactated ringer via pressure bag. She is tachycardic. Oxygen saturation 99% via bag 5 mask ventilation. She is agonal breathing and will only withdraw to pain in the left upper extremity. She is GCS of 6. Due to stating that he did not want to escalate care to EMS, I did discuss patient's case with , Ed, shortly after patient's arrival and he stated that they had not had significant discussions about end-of-life care or chest compressions/intubation, and he stated that she wanted to be remembered as a fighter but did not feel that she would want chest compressions or intubation given her stage IV cancer. Ultimately, decided to make her DNR and DO NOT INTUBATE. He is approximately 20 minutes out. Patient's niece is currently in the ER at this time as well. She does state that she has been on a blood thinner and has had nosebleeds and has had a decline in her health recently. She has also had a cough and respiratory symptoms. EKG showed sinus tachycardia. No ST elevation or depression. QTc of 396. FL interval of 176 Patient's VBG showed mild alkalosis with pH of 7.43 with mixed respiratory acidosis and metabolic alkalosis picture. Lactate is elevated at 4.5. Patient's arrived at approximately 0900. He states that she has had a quick decline in her health since June and had recurrence of metastatic disease to her brain and spine and underwent CyberKnife procedure at that time, however starting early this morning approximately 1 AM, while sleeping he said that she was having difficulty breathing and snoring. Her head was slumped over to the side. At approximately 8 AM this morning, they put the pulse ox on her as she was not responding to them and continued to have agonal breathing and they could not get an adequate reading and that is when they called 911. She has not been responsive since. He does state that she was taken off of her anticoagulation due to nosebleeds and is not currently anticoagulated. Patient continues to remain hypotensive, unresponsive and oxygen saturation 92 on nonrebreather with tachycardia. I have concern for hypoxic brain injury versus worsening metastatic disease with possible brain herniation given her bradycardia and hypotension. I had a lengthy discussion with family about goals of care. Given poor prognosis, family would like her to be made comfort care at this time. I did discuss patient's case with Dr. Gamble with the hospital medicine service at approximately 10 AM for admission who agreed to admit the patient for comfort care at this time. Lab work is starting to come back and shows severe leukopenia with white blood cell count 1.4, severe anemia with hemoglobin of 6.3, hematocrit of 21.2, platelets low at 58, sodium and potassium within normal limits. CAMDEN with creatinine of 1.5 and BUN of 28. Liver enzymes mildly elevated with AST of 44, ALT of 95, troponin elevated to 0.05, BNP elevated 1850. Critical Care Critical Care Time Critical Care Time: Yes Attestation: On 08/15/25, the high probability of a clinically significant, sudden or life threatening deterioration of the following system(s) required my full and direct attention, intervention and personal management. The time I documented below is in addition to time spent performing reported procedures but includes the following listed in this critical care notation. Total Time Total Critical Care Time: 35
[2025-08-15 09:28] LABS: VBG HCO3 15.7 mmol/L (23-30); VBG PH 7.43 mmol/L (7.31-7.41); VBG PO2 164.1 mmol/L (28-40)
--- NOTE | 2025-08-15 09:28 | ECG_ITS ---
APPROVED REPORT Exam: Resting ECG HR:129 bpm ECG Measurements Heart Rate 129 AXES WI 176 P 52 QRSd 85 QRS 33 QT 320 T 22 QTc 396 Conclusion SINUS TACHYCARDIA MODERATE ST DEPRESSION [0.05+ mV ST DEPRESSION] ABNORMAL ECG UNCONFIRMED REPORT Sinus tachycardia. No ST elevation or depression. QTc normal at 396 Electronically signed by : ISSA PARRISH, 08/15/2025 15:23:31
[2025-08-15 09:29] LABS: VBG PCO2 24.5 mmol/L (35-51)
[2025-08-15 09:30] LABS: Albumin Level 2.2 g/dl (3.5-5.0); Chloride 110 mmol/L (98-107); Lactate Venous 4.5 mmol/L (0.4-2.0); Sodium 140 mmol/L (136-145)
[2025-08-15 09:31] LABS: Potassium 3.5 mmoL/L (3.5-5.1)
[2025-08-15 09:33] LABS: Alanine Aminotransferase 95 U/L (12-78); Albumin/Globulin Ratio 0.8 (1.1-1.8); Alkaline Phosphatase 125 U/L (38-126); Anion Gap 10.5 mEq/L (5-15); Aspartate Amino Transferase 44 U/L (14-36); Bilirubin,Total 0.4 mg/dl (0.2-1.3); Blood Urea Nitrogen 28 mg/dl (7-17); Carbon Dioxide 23 mmol/L (22.0-30.0); Creatinine Clearance Estimated 54 mL/min (50-200); Creatinine,Serum 1.50 mg/dl (0.52-1.04); Estimated Glomerular Filt Rate 35 ml/min (>60); GFR (African American) 42 ML/MIN (>60); Globulin 2.6 g/dL (1.3-3.2); Total Protein,Serum 4.8 g/dl (6.3-8.2)
[2025-08-15 09:34] LABS: Calcium 7.9 mg/dl (8.4-10.2); Glucose 117 mg/dl (74-100)
[2025-08-15 09:37] LABS: Hematocrit 21.2 % (37.0-47.0); Immature Granulocytes % 0.7 %; Mean Corpuscular HGB Conc 29.7 g/dL (31.8-35.4); Mean Corpuscular Hemoglobin 25.8 pg (27.0-31.2); Mean Corpuscular Volume 86.9 fl (81-99); Nucleated Red Blood Cells % 6.4 %; Red Blood Count 2.44 M/mm3 (4.20-5.40); Red Cell Distribution Width-SD 56.3 fL
--- NOTE | 2025-08-15 09:39 | PC.NURSE ---
097-patient arrival to ER 0910- Port accessed 0912- LR started in 20 g RAC 0913- 18 g started in left wrist 09- patient placed on non rebreather MD spoke with family and they stated they did not want patient intubated or CPR started.
[2025-08-15] MEDS: LACTATED RINGERS 1000ML 1,000 ML 999 ML IV ×2 (09:42)
[2025-08-15 09:43] LABS: INR 1.03 (0.9-1.1); NT Pro Brain Natriuretic Pep. 1850 pg/mL (0-125); Prothrombin Time 11.4 seconds (10.1-12.5)
--- NOTE | 2025-08-15 09:44 | PC.NURSE ---
Patient was cleaned up and given s fresh gown and sheets before family came back.
[2025-08-15 09:45] LABS: Troponin I 0.05 ng/ml (0.00-0.034)
[2025-08-15 10:02] LABS: Hemoglobin 6.3 g/dL (12.2-16.2); White Blood Count 1.4 K/mm3 (4.8-10.8)
[2025-08-15 10:03] LABS: Activated Partial Thrombo Time 65.4 seconds (22.8-30.6)
[2025-08-15 10:42] LABS: RBC Morphology Normal; Total Cells Counted 50
[2025-08-15 10:43] LABS: Platelet Count 58 K/mm3 (142-424)
--- NOTE | 2025-08-15 10:51 | P.HP_ITS ---
History of Present Illness *Admission Date: 08/15/25 *Reason for visit:: unresponsive *History of present illness: Mrs. Parnell is a 65y female with a history of metastatic breast cancer to the brain, liver, spine, lungs who presents to the emergency department via EMS from home for decreased level of consciousness and low oxygen. at bedside provides history. States that patient was normal level of functionality last night, watched football and ate a hankins pie. She went to bed. This morning he woke up and she was an extremis. She was unresponsive and having agonal breathing. EMS was called. Per EMS, her O2 sats were in the 50s when they arrived to the home. She was brought to the ER for evaluation. On arrival, family states that they want her to be DNR and want to proceed with comfort care. They do not want to escalate care. Initial labs were obtained and sepsis bolus administered. Medicine consulted for admission for comfort care. Of note, review of her labs shows pancytopenia, meeting septic shock criteria. Blood pressure remains soft after 2 L IV fluid. Respiratory failure on nonrebreather. Tachycardic and hypothermic. Kidney function abnormal. Liver enzymes elevated. Albumin low. Patient's condition critical, I feel at this time, is imminent. Consulted hospital business strategist for bedside support for family. Patient in distress with agonal breathing at time of evaluation. Lungs sound quite wet with diffuse rhonchi and gurgle [facility] Disclaimer: The information contained in this section may have been updated after the patient was seen, as this information can be updated by other users. Medical History Breast cancer metastasized to brain Social History Smoking Status: Never smoker alcohol intake: never current occupational status: other Travel in the last 8 weeks?: None Have you lived/traveled outside US in past 30 days?: No Contact w/someone who lives/traveled outside US past 30 days?: No Exposure to someone with infectious disease in past 14 days?: No Do you have a fever (greater than 100.4 F or 38 C)?: No Have you tested positive for COVID-19?: No Exposed to someone with COVID-19 in past 14 days?: No Do you have a sore throat?: No Do you have a cough?: No Do you have any weakness?: No Are you experiencing any nausea/vomitting?: No Do you have any diarrhea?: No Are you experiencing any unusual bleeding?: No Do you have any muscle aches/pain?: No Do you have any abdominal pain?: No Are you experiencing loss of taste or smell?: No Other Medical History Have you received the Flu Vaccine for this season: Yes Have you received the Pneumonia Vaccine: Yes Review of Systems Review of Systems Review of systems:: unable to obtain Meds Home Medications and Allergies Home Medications ?Medication ?Instructions ?Recorded ?Confirmed ?Type capecitabine 500 mg tablet 500 mg PO DAILY cancer babatunde tment 12/11/21 12/11/21 History oxycodone-acetaminophen 7.5 mg-325 1 each PO Q4-6H PRN pain 12/11/21 12/11/21 History mg tablet tucatinib 150 mg tablet 150 mg PO DAILY cancer treat ment 12/11/21 12/11/21 Hist ory New Prescriptions to Start Prescriptions: Allergies Allergy/AdvReac Type Severity Reaction Status Date / Time No Known Allergies Allergy Verified 12/11/21 19:58 Exam Data for Last 24 hours Vital signs and Labs for Last 24 Hours: Temp Pulse Resp BP Pulse Ox O2 Del Method O2 Flow Rate 97.0 F L 117 H 20 71/30 L 80 L Non-Rebreather 15 08/15/25 10:24 08/15/25 10:24 08/15/25 10:24 08/15/25 10:24 08/15/25 10:15 08/15/25 10:24 08/15/25 10:24 Laboratory Results - last 24 hr 08/15/25 09:15: WBC 1.4 L*, RBC 2.44 L, Hgb 6.3 L*, Hct 21.2 L, MCV 86.9, MCH 25.8 L, MCHC 29.7 L, RDW 19.1 H, Plt Count 58 L, MPV 10.9 H, Neut % (Auto) 72.4, Lymph % (Auto) 17.0, [place] % (Auto) 9.9 H, Eos % (Auto) 0.0 L, Baso % (Auto) 0.0 L, Neut # (Auto) 1.0 L, Lymph # (Auto) 0.2 L, [place] # (Auto) 0.1, Eos # (Auto) 0.0, Baso # (Auto) 0.0, Total Counted 50, Neutrophils % (Manual) 64, Lymphocytes % (Manual) 22, Monocytes % (Manual) 14 H, Platelet Estimate Marked decrease, RBC Morphology Normal, PT 11.4, INR 1.03, APTT 65.4 H*, VBG pH 7.43 H, VBG pCO2 24.5 L, VBG pO2 164.1 H, VBG HCO3 15.7 L, VBG Total CO2 16.5 L, VBG O2 Saturation 98.5 H, VBG Base Excess -8.7 L, VBG Lactic Acid 4.5 H, Sodium 140, Potassium 3.5, Chloride 110 H, Carbon Dioxide 23, Anion Gap 10.5, BUN 28 H, Creatinine 1.50 H, Estimated Creat Clear 54, Estimated GFR 35 L, Est GFR ( Amer) 42 L, Glucose 117 H, Calcium 7.9 L, Total Bilirubin 0.4, AST 44 H, ALT 95 H, Alkaline Phosphatase 125, Troponin I 0.05 H, NT-Pro-B Natriuret Pep 1850 H, Total Protein 4.8 L D, Albumin 2.2 L, Globulin 2.6, Albumin/Globulin Ratio 0.8 L I & O for Last 24 hours: Intake & Output 08/12/25 08/13/25 08/14/25 08/15/25 23:59 23:59 23:59 23:59 Weight 90.718 kg Constitutional Constitutional: severe distress, chronically ill appearing and obtunded *Routine HEENT Exam Head: Present normocephalic Eye: Absent EOMI or PERRL ENT: Present mucous membranes moist Comments: alopecia *Routine Neck Exam Neck: Present supple; Absent lymphadenopathy *Routine Respiratory Exam Respiratory: Present accessory muscle use, prolonged expiratory phase, respiratory distress, rhonchi, wheezes and crackles; Absent normal respiratory effort Comments: agonal breathing *Routine Cardiovascular Exam Cardiovascular: Present tachycardia *Routine Abdominal Exam Abdominal: Present soft and normoactive bowel sounds; Absent tenderness *Routine Rectal Exam Rectal:: deferred *Routine Genitalia Exam Genitalia:: deferred *Routine Extremities Exam Extremities: Present edema (1+ to knees BLE); Absent cyanosis or clubbing *Routine Skin Exam Skin: Present pallor and warm; Absent rash *Routine Neurological Exam Neurological: Present altered mental status Comments: GCS 6 Assessment and Plan *Assessment and plan (1) Metabolic encephalopathy: Status: Acute Category: Medical Code(s): G93.41 - Metabolic encephalopathy (2) Septic shock: Status: Acute Category: Medical Code(s): A41.9 - Sepsis, unspecified organism; R65.21 - Severe sepsis with septic shock (3) Acute hypoxic respiratory failure: Status: Acute Category: Medical Code(s): J96.01 - Acute respiratory failure with hypoxia (4) Metastatic breast cancer: Status: Acute Category: Medical Code(s): C50.919 - Malignant neoplasm of unspecified site of unspecified female breast (5) NSTEMI (non-ST elevated myocardial infarction): Status: Acute Category: Medical Code(s): I21.4 - Non-ST elevation (NSTEMI) myocardial infarction (6) CAMDEN (acute kidney injury): Status: Acute Category: Medical Code(s): N17.9 - Acute kidney failure, unspecified (7) Hypoalbuminemia: Status: Acute Category: Medical Code(s): E88.09 - Other disorders of plasma-protein metabolism, not elsewhere classified (8) Neutropenia: Status: Acute Category: Medical Code(s): D70.9 - Neutropenia, unspecified (9) Thrombocytopenia: Status: Acute Category: Medical Code(s): D69.6 - Thrombocytopenia, unspecified (10) Anemia: Status: Acute Category: Medical Code(s): D64.9 - Anemia, unspecified Plan Ms. Jackson is a 65-year-old female with widely metastatic breast cancer who presents and extremis. Presentation consistent with septic shock given her tachycardia, tachypnea, hypotension nonresponsive to 2 L IV fluid, altered sensorium, endorgan damage with [place], white count less than 4. Strong concern for infection most likely pneumonia. Has what appears to be a type II NSTEMI due to the stress of her hypoxia and septic/shock state. Review of chart shows white count of 1.4, neutrophil count of 8000, hemoglobin 6.3 with platelets of 58. Acidosis with lactic acid of 4.5, kidney function abnormal with BUN 28, creatinine 1.5. Troponin 0.05, BNP 1850. Albumin 2.2. Chest x-ray obtained showing patchy opacities in left lung with mild patchy opacities noted in the right lung base. No further EKG, imaging obtained at family request given goals of care for comfort care. Will not administer any further fluids and will not initiate antibiotics. Continue nonrebreather for comfort. Initiate glycopyrrolate 0.2 mg IV every 6 hours as needed for secretion management, morphine 4 mg IV every 2 hours for pain or respiratory distress, and Valium 2 mg IV every 4 hours for agitation. - Patient's current condition critical - Pastoral services consulted - Bereavement cart provided - I made decision to admit for comfort care after discussion with ER physician requesting inpatient management as is eminent. Family at bedside.
[2025-08-15] MEDS: GLYCOPYRROLATE 0.2 MG/ML 1ML VIAL IV ×2 (10:56→19:38)
[2025-08-15] MEDS: MORPHINE 4MG/ML SYRINGE 4 MG IV ×3 (12:37→19:38)
--- OUTSIDE RECORDS SUMMARY | 2025-08-15 13:10 | XMS_ITS ---
Author Organization [facility] Address [address] [place] [address] Care Team Providers Care Trap Operator Name Role Phone Provider, No Known Primary Care Provider Unavail able Oncology- External Fill Status:Disenrolled (Closed) Start date:12/04/2024 Enrollment date:12/04/2024 Enrollment reason:New start at End date:07/29/2025 Close reason:Medication discontinued Linked medications:Neratinib Maleate (Discontinued) Linked problems:Malignant neoplasm of upper-outer quadrant of left breast in female, estrogen receptor positive (Active) Continued Care and Services Coordination
--- OUTSIDE RECORDS SUMMARY | 2025-08-15 13:19 | XMS_ITS | Encounter Summary ---
Author Organization [facility] Address [address] [place] [address] Care Team Providers Care Corporate Recycling Manager Name Role Phone Loretta Cuevas MD Primary Care Provider [phone] Reason for Visit * Reason Onset Date Comments Med Refill 06/16/2025 Encounter Details Date Type Department Care Team (Late st Contact Info) Description 06/16/2025 Refill [facility] [address] [phone] Kayli Spencer MD [address] [place] [address] Social History Tobacco Use Types Packs/Day Years [...] on file documented as of this encounter Progress Notes * Kayli Spencer MD - 06/16/2025 4:16 PM EDTAddended by: KAYLI SPENCER on: 06/16/2025 04:16 PM Modules accepted: Orders documented in this encounter Plan of Treatment Upcoming Encounters Date Type Department Care Team (Late st Contact Info) Description 08/18/2025 8:45 AM EST Appointment [facility] [address] [place] [address] 08/18/2025 9:15 AM EST Office Visit [facility] [address] [phone] Kayli Spencer MD [address] [address] 08/18/2025 9:30 AM EST Appointment [facility] [address] [place] [address] 09/13/2025 1:00 PM EST Clinical Support [facility] [address] [place] [address] Lita Luis APRN [address] [place] [address] documented as of this encounter Goals Goal Patient Goal Type Associated Problems Recent Progress Patient-Stated? Author Specialty Pharmacy General Goal General No Leighann Lam, PharmD Note: Clinical goal/therapeutic target: disease control, per the recent oncology clinic notes and labs. documented as of this encounter Visit Diagnoses Not on filedocumented in this encounter Care Teams Corporate Recycling Manager Relationship Specialty Start Date End Date Loretta Cuevas MD [address] [place] [address] PCP - General 12/19/15 07/28/25 documented as of this encounter
--- OUTSIDE RECORDS SUMMARY | 2025-08-15 13:19 | XMS_ITS | Encounter Summary ---
[facility] Address [address] [place] [address] Care Team Providers Care Truck Terminal Manager Name Role Phone Loretta Cuevas MD Primary Care Provider [phone] Reason for Visit * Reason Onset Date Comments JOCELYN-TRIAGE 2025 Encounter Details Date Type Department Care Team (Late st Contact Info) Description 2025 Telephone [facility] HEMATOLOGY & ONCOLOGY [address] [address] Valentina Sadler MD [address]00 [place] [address] JOCELYN-TRIAGE Social History Tobacco Use Types Packs/Day Years [...] care, and heating? Not very hard 07/15/2025 [facility] [place] of Occupat ional Health - Occupational Stress [...] things needed for daily living? No 07/15/2025 [facility] Utilities Answer Date Recorded In the past [address] [facility] electric, gas, oil, or water company threatened [...] home 06/30 Potentially Unsafe Housing Conditions none 07/15/2025 Family and Community Support Answer Omar e [...] GED or equivalent No 07/15/2025 Preferred Language Uzbek 07/15/2025 PHQ-2 Answer Date Recorded Patient Health Questionnaire-2 Score 0 07/15/2025 Comments No Sex and Gender Information Value Date Recorded Sex Assigned at Not on file Legal Sex Female 11:35 AM EDT Gender Identity Not on file Sexual Orientation Not on file documented as of this encounter Miscellaneous Notes * Telephone Encounter - Kandice Salazar RN - 2025 9:55 AM EDT RN discussed with Dr Zapata. Dr Zapata would like pt to have MRI of brain w + wo contrast. RN returned call to pt and let her know. [employer] Architect will call pt with appt. Pt request [facility] location. Pt verbalized understanding. * Telephone Encounter - Irina Kimball - 2025 9:28 AM EDT Patient called she is having balance issues, and has fallen 4 times. Please call. documented in this encounter Plan of Treatment Upcoming Encounters Date Type Department Care Team (Late st Contact Info) Description 08/18/2025 8:45 AM EST Appointment [facility] OUTPATIENT ONCOLOGY [address] [place] [address] 08/18/2025 9:15 AM EST Office Visit [facility] HEM[facility] & ONCOLOGY [address]00 [facility] [address] [place] [address] Valentina Sadler MD 1700 [facility] [address] [place] [address] 08/18/2025 9:30 AM EST Appointment [facility] OUTPATIENT ONCOLOGY [address] [place] [address] 09/13/2025 1:00 PM EST Clinical Support [facility] [address] [facility] [place] [address] Lita Luis APRN 1700 [place], [place] [address] documented as of this encounter Goals Goal Patient Goal Type Associated Problems Recent Progress Patient-Stated? Author Specialty Pharmacy General Goal General Leighann Gallo, PharmD Note: Clinical goal/therapeutic target: disease control, per the recent oncology clinic notes and labs. documented as of this encounter Visit Diagnoses Not on filedocumented in this encounter Care Teams Truck Terminal Manager Relationship Specialty Start Date End Date Loretta Cuevas MD [address]75 [facility] [address] [place], [place] [id number] PCP - General 12/19/15 07/28/25 documented as of this encounter
--- OUTSIDE RECORDS SUMMARY | 2025-08-15 13:19 | XMS_ITS | Encounter Summary ---
Author Organization [facility] Address [address] [place] [address] Care Team Providers Care Still Operator Gin Name Role Phone Loretta Cuevas MD Primary Care Provider [phone] Encounter Details Date Type Department Care Team (Latest Contact Info) Description 2025 Travel Social History Tobacco Use Types Packs/Day Years [...] care, and heating? Not very hard 07/15/2025 [facility] [place] of Occupat ional Health - Occupational Stress [...] things needed for daily living? No 07/15/2025 [facility] Utilities Answer Date Recorded In the [...] GED or equivalent No 07/15/2025 Preferred Language Japanese 07/15/2025 PHQ-2 Answer Date Recorded Patient Health Questionnaire-2 Score 0 07/15/2025 Comments No Sex and Gender Information Value Date Recorded Sex Assigned at Not on file Legal Sex Female 11:35 AM EDT Gender Identity Not on file Sexual Orientation Not on file documented as of this encounter Functional Status * Calculated C-SSRS Risk Score (Lifetime/Recent) Answer Date of Assessment Author No Risk Indicated 2025 8:03 PM EDT Anna Neves RN * [place] Suicide Severity Rating Scale (Screener/Recent Self-Report) Question Answer Date of Assessment Author 1. Wish to be (Past 1 Month) No 025 8:03 PM CÉSART Anna Mazariegos RN 2. Non-Specific Active Suici karen Thoughts (Past 1 Month) No 2025 8:03 PM EDT Robert Mazariegos RN 6. Suicidal Behavior (Lifetime) No 8:03 PM EDT Anna Mazariegos RN documented as of this encounter Plan of Treatment Upcoming Encounters Date Type Department Care Team (Late st Contact Info) Description 08/18/2025 8:45 AM EST Appointment [facility] OUTPATIENT ONCOLOGY [address] [place] [address] 08/18/2025 9:15 AM EST Office Visit [facility] HEM[facility]OLOG[facility] & ONCOLOGY 1700 [facility] [address] [place] [address] Valentina Sadler MD 1700 [facility] [address] [place] [address] 08/18/2025 9:30 AM EST Appointment [facility] OUTPATIENT ONCOLOGY [address] [place] [address] 09/13/2025 1:00 PM EST Clinical Support [facility] [address] [place] [address] Lita Luis, MANAGER BENCH [address] [place] [address] documented as of this encounter Goals Goal Patient Goal Type Associated Problems Recent Progress Patient-Stated? Author Specialty Pharmacy General Goal General No Leighann Lam, PharmD Note: Clinical goal/therapeutic target: disease control, per the recent oncology clinic notes and labs. documented as of this encounter Visit Diagnoses Not on filedocumented in this encounter Care Teams Still Operator Gin Relationship Specialty Start Date End Date Loretta Cuevas MD [address]75 [facility] [address] [place] [address] PCP - General 12/19/15 07/28/25 documented as of this encounter
--- OUTSIDE RECORDS SUMMARY | 2025-08-15 13:21 | XMS_ITS | Encounter Summary ---
[facility] Organization [facility] Address [address] [place] [address] Care Team Providers Care Retail Salesman Name Role Phone Loretta Cuevas MD Primary Care Provider [phone] Encounter Details Date Type Department Care Team (Latest Contact Info) Description 06/16/2025 Travel Social History Tobacco Use Types Packs/Day [...] Info) Description 08/18/2025 8:45 AM EST Appointment OUTPATIENT ONCOLOGY [address] [place] [address] 08/18/2025 9:15 AM EST Office Visit [facility] HEMATOLOGY & [facility]OGY [facility] [address] [place] [address] Valentina Sadler MD [address]00 [facility] [address] [place] [address] 08/18/2025 9:30 AM EST Appointment OUTPATIENT ONCOLOGY [address] [place] [address] 09/13/2025 1:00 PM EST Clinical Support [facility] [address] [place] [address] Lita Luis APRN [address] [place] [address] documented as of this encounter Goals Goal Patient Goal Type Associated Problems Recent Progress Patient-Stated? Author Specialty Pharmacy General Goal General No Leighann Lam, PharmD Note: Clinical goal/therapeutic target: disease control, per the recent oncology clinic notes and labs. documented as of this encounter Visit Diagnoses Not on filedocumented in this encounter Care Teams Retail Salesman Relationship Specialty Start Date End Date Loretta Cuevas MD [address] [place] [address] PCP - General 12/19/15 07/28/25 documented as of this encounter
--- OUTSIDE RECORDS SUMMARY | 2025-08-15 13:22 | XMS_ITS | Encounter Summary ---
[facility] Address [address] [place] [address] Care Team Providers Care Frame Coverer Name Role Phone Loretta Cuevas MD Primary Care Provider [phone] Reason for Visit * Reason Onset Date Comments Med Refill 05/17/2025 JOCELYN - REFILL 05/17/2025 Encounter Details Date Type Department Care Team (Late st Contact Info) Description 05/17/2025 Telephone [facility] HEMATOLOGY & ONCOLOGY [address] [address] Valentina Sadler MD [address]00 [place] [address] Med Refill; JOCELYN - REFILL Social History Tobacco Use Types Packs/Day Years [...] encounter Miscellaneous Notes * Telephone Encounter - Meaghan Clarke RegSched Rep - 05/17/2025 12:38 PM EDT Caller: Peter Parnell Relationship: Self Best call back number: Telephone Information: Requested Prescriptions: NERLYNX 40 MG, TAKES 4 TABLETS ONCE A DAY (NOT ON MED LIST) Pharmacy where request should be sent: [facility] Last office visit with prescribing clinician: 05/05/2025 Last telemedicine visit with prescribing clinician: Visit date not found Next office visit with prescribing clinician: 06/16/2025 Does the patient have less than a 3 day supply: [] Yes [x] No If the office needs to give you a call back, can they leave a voicemail: [x] Yes [] No documented in this encounter Plan of Treatment Upcoming Encounters Date Type Department Care Team (Late st Contact Info) Description 08/18/2025 8:45 AM EST Appointment [facility] OUTPATIENT ONCOLOGY [address] [facility] [place] [address] 08/18/2025 9:15 AM EST Office Visit [facility] HEMATOLOGY & ONCOLOGY 1700 [facility] [address] [place] [address] Valentina Sadler MD 1700 [facility] [address] [place] [address] 08/18/2025 9:30 AM EST Appointment [facility] OUTPATIENT ONCOLOGY [address] [facility] [place] [address] 09/13/2025 1:00 PM EST Clinical Support [facility] [address] [place] [address] Lita Luis, FLIGHT COMMUNICATIONS OFFICER [address] [place] [address] documented as of this encounter Goals Goal Patient Goal Type Associated Problems Recent Progress Patient-Stated? Author Specialty Pharmacy General Goal General No Leighann Lam, PharmD Note: Clinical goal/therapeutic target: disease control, per the recent oncology clinic notes and labs. documented as of this encounter Visit Diagnoses Not on filedocumented in this encounter Care Teams Frame Coverer Relationship Specialty Start Date End Date Loretta Cuevas MD [facility] [address] [place] [address] PCP - General 12/19/15 07/28/25 documented as of this encounter
--- OUTSIDE RECORDS SUMMARY | 2025-08-15 13:22 | XMS_ITS | Encounter Summary ---
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; Malignant neoplasm metastatic to brain Social History [...] Info) Description 08/18/2025 8:45 AM EST Appointment [facility] OUTPATIENT ONCOLOGY [address] [place] [address] 08/18/2025 9:15 AM EST Office Visit [facility] HEMATOLOGY & ONCOLOGY [address] [address] Valentina Sadler MD [address] [address] 08/18/2025 9:30 AM EST Appointment [facility] OUTPATIENT ONCOLOGY [address] [place] [address] 09/13/2025 1:00 PM EST Clinical Support [facility] [address] [place] [address] Lita Luis APRN [address]00 [place] [address] documented as of this encounter Goals Goal Patient Goal Type Associated Problems Recent Progress Patient-Stated? Author Specialty Pharmacy General Goal General No Leighann Lam, PharmD Note: Clinical goal/therapeutic target: disease control, per the recent oncology clinic notes and labs. 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
--- OUTSIDE RECORDS SUMMARY | 2025-08-15 13:25 | XMS_ITS | Encounter Summary ---
[facility] Address [address] [place] [address] Care Team Providers Care Social Contact Worker Name Role Phone Provider, No Known Primary Care Provider Unavail able Reason for Visit * Reason Onset Date Comments Med Refill 09/25/2022 Encounter Details Date Type Department Care Team (Late st Contact Info) Description 09/25/2022 Refill [facility] HEMATOLOG[facility] & ONCOLOGY 1700 [facility] [address] [place] [address] Valentina Sadler MD 1700 [facility] [address] [place] [address] Social History Tobacco Use Types Packs/Day Years Used Date Smoking Tobacco: Never Smokeless Tobacco: Never Alcohol Use Standard Drinks/Week Comments Not Currently 0 (1 standard drink = 0.6 oz pur e alcohol) PHQ-2 Answer Date Recorded Retired PHQ-9: Brief Depression Severity Measure Score 0 09/07/2022 Abuse Screen Answer Date Recorded Feels Unsafe at Home or Work/School no 09/07/2022 Feels Threatened by Someone no 05/2022 Does Anyone Try to Keep You From Having Contact with Others or Doing Things Outside Your Home? no 09/07/2022 Physical Signs of Abuse Present no 09/07/2022 Comments No Sex and Gender Information Value Date Recorded Sex Assigned at Not on file Legal Sex Female 11:35 AM EDT Gender Identity Not on file Sexual Orientation Not on file documented as of this encounter Plan of Treatment Upcoming Encounters Date Type Department Care Team (Late st Contact Info) Description 08/18/2025 8:45 AM EST Appointment [facility] OUTPATIENT ONCOLOGY [address] [place] [address] 08/18/2025 9:15 AM EST Office Visit [facility] & ONCOLOGY [address] [address] Valentina Sadler MD 1700 [facility] [address] [place] [address] 08/18/2025 9:30 AM EST Appointment [facility] OUTPATIENT ONCOLOGY [address] [place] [address] 09/13/2025 1:00 PM EST Clinical Support [facility] [address] [place] [address] Lita Luis APRN [address] [place] [address] documented as of this encounter Visit Diagnoses Not on filedocumented in this encounter Care Teams Social Contact Worker Relationship Specialty Start Date End Date Provider, [place] [address] PCP - General 08/02/25 documented as of this encounter
--- OUTSIDE RECORDS SUMMARY | 2025-08-15 13:27 | XMS_ITS | Encounter Summary ---
[facility] Address [address] [place] [address] Care Team Providers Care Chemical Analytical Sampler Name Role Phone Provider, No Known Primary Care Provider Unavail able Encounter Details Date Type Department Care Team (Latest Contact Info) Description 09/07/2022 Nurse Navigator [facility] [address] [place] [address] Irina Batista, RN Brain metastases (HCC) Social History Tobacco Use Types Packs/Day Years [...] Info) Description 08/18/2025 8:45 AM EST Appointment [facility] OUTPATIENT ONCOLOGY [address] [place] [address] 08/18/2025 9:15 AM EST Office Visit [facility] HEMATOLOG[facility] & ONCOLOGY 1700 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
[2025-08-15 13:28] LABS: Reflex Lactic Add Lactic Reflex
--- OUTSIDE RECORDS SUMMARY | 2025-08-15 13:28 | XMS_ITS | Encounter Summary ---
[facility] Address [address] [place] [address] Care Team Providers Care Occupational Therapist Rehab Manager Name Role Phone Provider, No Known Primary Care Provider Unavail able Reason for Visit * Reason Onset Date Comments Med Refill 08/13/2025 Encounter Details Date Type Department Care Team (Late st Contact Info) Description 08/13/2025 Refill [facility] HEMATOLOGY & ONCOLOGY 1700 [facility] [address] [place] [address] Valentina Sadler MD 1700 [facility] [address] [place] [address] Social History Tobacco Use Types Packs/Day Years [...] care, and heating? Not very hard 07/15/2025 [facility] [place] of Occupat ional Health - Occupational Stress [...] things needed for daily living? No 07/15/2025 [facility] Utilities Answer Date Recorded In [...] GED or equivalent No 07/15/2025 Preferred Language Cook Islander 07/15/2025 PHQ-2 Answer Date Recorded Patient Health [...] Info) Description 08/18/2025 8:45 AM EST Appointment [facility] OUTPATIENT ONCOLOGY [address] [place] [address] 08/18/2025 9:15 AM EST Office Visit [facility] HEMATOLOGY & ONCOLOGY [address] [address] Valentina Sadler MD [address] [address] 08/18/2025 9:30 AM EST Appointment [facility] OUTPATIENT ONCOLOGY [address] [place] [address] 09/13/2025 1:00 PM EST Clinical Support [facility] [address] [place] [address] Lita Luis APRN [address]00 [place] [address] documented as of this encounter Goals Goal Patient Goal Type Associated Problems Recent Progress Patient-Stated? Author Specialty Pharmacy General Goal General No Leighann Lam, PharmD Note: Clinical goal/therapeutic target: disease control, per the recent oncology clinic notes and labs. documented as of this encounter Visit Diagnoses Not on filedocumented in this encounter Care Teams Occupational Therapist Rehab Manager Relationship Specialty Start Date End Date Provider, [place] [address] PCP - General 08/02/25 documented as of this encounter
--- OUTSIDE RECORDS SUMMARY | 2025-08-15 13:28 | XMS_ITS | Clinical Summary ---
Author Organization [facility] Address [address] [place] [address] Care Team Providers Care Client Services Associate Name Role Phone Provider, No Known Primary Care Provider Unavail able Allergies No known active allergies Medications multivitamin with minerals tablet tablet Take 1 tablet by mouth Daily. Active metFORMIN (GLUCOPHAGE) 500 MG tablet Take 5 tablets by mouth Daily. 450 tablet 1 3 8:45 AM EST 09/18/20 22 Active erythromycin (ROMYCIN) 5 MG/GM ophthalmic ointment APPLY A SMALL AMOUNT AT BEDTIME 10/14/19 24 Active Carboxymethylce llulose Sodium (EYE DROPS OP) Apply to eye(s) as directed by provider. Serum Tears Active ondansetron (ZOFRAN) 8 MG tabletIndicatio ns:Malignant neoplasm metastatic to bone,Adenocarci noma of 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,Malignant neoplasm of upper-outer quadrant of left breast in female, estrogen receptor positive Take 1 tablet by mouth 3 (Three) Times a Day As Needed for Nausea or Vomiting. 30 tablet 5 5 11:25 AM EST 04/13/20 24 Active lidocaine-prilo shameka (EMLA) 2.5-2.5 % cream Apply 1 application topically to the appropriate area as directed as needed (45-60 minutes prior to port access. Cover with saran/plastic wrap). 30 g 5 5 12:22 PM EDT 01/28/20 25 Active memantine (Namenda) 5 MG tablet Take 1 tablet by mouth 2 (Two) Times a Day. 60 tablet 5 5 9:59 AM EST 05/17/20 25 Active donepezil (Aricept) 10 MG tablet Take 1 tablet by mouth Every Night. 30 tablet 5 5 9:59 AM EST 05/17/20 25 Active colestipol (COLESTID) 1 g tablet Take 1 tablet by mouth 4 (Four) Times a Day. Active loperamide (IMODIUM) 2 MG capsule Take 1 capsule by mouth 4 (Four) Times a Day As Needed for Diarrhea. Active insulin glargine (LANTUS, SEMGLEE) 100 UNIT/ML injection Inject 25 Units under the skin into the appropriate area as directed Every Night for 30 days. 10 mL 5 3:43 PM EDT 07/27/20 25 025 Active Insulin Lispro (humaLOG) 100 UNIT/ML injection Inject 10 Units under the skin into the appropriate area as directed 3 (Three) Times a Day With Meals. 10 mL 5 3:43 PM EDT 07/27/20 25 025 Active famotidine (PEPCID) 20 MG tablet Take 1 tablet by mouth Daily for 30 days. 30 tablet 5 3:43 PM EDT 07/28/20 25 025 Active Blood Glucose Monitoring Suppl (Blood Glucose Monitor System) w/Device kit Use to test blood sugar up to 4 Times a Day as needed. 1 each 5 3:43 PM EDT 07/27/20 25 Active glucose blood test strip Use to test blood sugar up to 4 Times a Day as needed. 100 each 12 5 3:43 PM EDT 07/27/20 25 Active Lancets misc Use to test blood sugar up to 4 Times a Day as needed. 100 each 12 5 3:43 PM EDT 07/27/20 25 Active Alcohol Swabs (Alcohol Pads) 70 % pads Apply 1 alcohol swab to injection site of skin immediately prior to insulin injection. 100 each 12 5 9:59 AM EST 07/27/20 25 Active dextrose (GLUTOSE) 40 % gel Take 15 g by mouth Every 15 (Fifteen) Minutes As Needed for Low Blood Sugar (Blood sugar less than 70) for up to 30 days. 30 each 07/27/20 25 025 Active naloxone (NARCAN) 4 MG/0.1ML nasal spray Call 911. Don't prime. [place] in 1 nostril for overdose. Repeat in 2-3 minutes in other nostril if no or minimal breathing/resp onsiveness. 2 each 5 3:43 PM EDT 07/27/20 25 Active Insulin Syringe-Needle U-100 (BD Insulin Syringe Ultrafine) 31G X 5/16 1 ML misc Inject 1 each under the skin into the appropriate area as directed 4 (Four) Times a Day As Needed (for insulin injections). 100 each 12 5 3:43 PM EDT 07/27/20 25 Active fluconazole (DIFLUCAN) 200 MG tablet Take 1 tablet by mouth Daily. 5 tablet 5 1:02 PM EDT 07/28/20 25 Active Insulin Glargine (LANTUS SOLOSTAR) 100 UNIT/ML injection penIndications: Type 2 diabetes mellitus with other specified complication, unspecified whether custodial insulin use Inject 25 Units under the skin into the appropriate area as directed Every Night. 3 mL 5 07/29/20 25 Active Insulin Lispro, 1 Unit Dial, (HUMALOG) 100 UNIT/ML solution pen-injectorInd ications:Type 2 diabetes mellitus with other specified complication, unspecified whether custodial insulin use Inject 10 Units under the skin into the appropriate area as directed 3 (Three) Times a Day With Meals. 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 Use to test blood sugar up to 4 times a day as needed. 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 Use to test blood sugar up to 4 times a day as needed. 100 each 12 07/29/20 25 Active Alcohol Swabs 70 % padsIndications :Type 2 diabetes mellitus with other specified complication, unspecified whether custodial insulin use Use 1 each Take As Directed. Apply 1 alcohol swab to injection site of skin immediately prior to insulin injection. 100 each 07/29/20 25 Active [place] & Syringes miscIndications :Type 2 diabetes mellitus with other specified complication, unspecified whether custodial insulin use Use 1 each Take As Directed. 120 each 12 07/29/20 25 Active oxybutynin XL (DITROPAN XL) 15 MG 24 hr tablet Take 1 tablet by mouth Daily. 30 tablet 2 08/02/20 25 Active Rivaroxaban (XARELTO) tablet therapy pack starter packIndications :DVT/PE (active thrombosis) Take one 15 mg tablet twice daily with food for 21 days. Followed by one 20 mg tablet by mouth once daily with food. Take as directed 1 each 08/03/20 25 Active oxyCODONE-aceta minophen (PERCOCET) 7.5-325 MG per tablet Take 1- 2 tablets by mouth Every 6 (Six) Hours As Needed for Severe Pain *max 6 tablets per day* 120 tablet 08/13/20 25 Active hydroCHLOROthia zide (HYDRODIURIL) 12.5 MG tablet Take 1-2 tablet(s) by mouth daily as needed 180 tablet 1 3 12:42 PM EDT 03/19/20 23 025 Discontinued( *Therapy completed) prednisoLONE acetate (PRED FORTE) 1 % ophthalmic suspension Administer 1 drop to both eyes 3 (Three) Times a Day. 07/29/20 23 025 Discontinued( *Therapy completed) moxifloxacin (VIGAMOX) 0.5 % ophthalmic solution INSTILL 1 DROP INTO EACH EYE THREE TIMES DAILY 10/05/19 24 025 Discontinued( Stop Taking at Discharge) oxyCODONE-aceta minophen (PERCOCET) 7.5-325 MG per tabletIndicatio ns:Malignant neoplasm metastatic to bone Take 1 tablet by mouth Every 6 (Six) Hours As Needed for Moderate Pain. 120 tablet 5 12:22 PM EDT 04/16/20 25 025 Discontinued( Stop Taking at Discharge) Neratinib (Nerlynx) 40 MG tablet chemo tablet Take 4 tablets by mouth Daily. Discontinued( Alternate therapy) dexAMETHasone (DECADRON) 6 MG tablet Take 1 tablet by mouth Every 12 (Twelve) Hours for 14 days. 28 tablet 5 3:43 PM EDT 07/27/20 025 oxyCODONE HCl 7.5 MG tabletIndicatio ns:Spinal cord mass Take 1 tablet by mouth Every 6 (Six) Hours As Needed for Moderate Pain for up to 3 days. 12 tablet 07/27/20 25 025 Discontinued( Stop Taking at Discharge) Insulin Lispro (humaLOG) 100 UNIT/ML injection Inject 2-9 Units under the skin into the appropriate area as directed 4 (Four) Times a Day Before Meals & at Bedtime. 1080 Units 07/27/20 025 Discontinued( Other- See Medication Note) oxyCODONE-aceta minophen (Percocet) 7.5-325 MG per tabletIndicatio ns:Spinal cord mass Take 1 tablet by mouth Every 6 (Six) Hours As Needed for Moderate Pain for up to 3 days. 12 tablet 5 3:43 PM EDT 07/27/20 Active Problems Problem Noted Date Diagnosed Date Spinal cord mass 07/15/2025 Falls 07/15/2025 Anemia, chronic disease 07/15/2025 Thrombocytopenia 07/15/2025 Stage 3b chronic kidney disease 07/15/2025 Moderate protein-calorie malnutrition 07/15/2025 Brain metastases 09/06/2022 Overview (12/31/2022): 12/29/2022 DX Regulatory Update Chemotherapy-induced neuropathy 02/01/2022 Encounter for care related to vascular access po rt 10/09/2019 Adenocarcinoma of left breast metastatic to live r 09/25/2019 Breast cancer metastasized to bone 09/25/2019 Malignant neoplasm of upper- outer quadrant of left breast in female, estrogen receptor positive 08/22/2016 Cancer Staging:Clinical stage from 12/01/2013:Stage IIA(T1b, N1, M0) - Signed by Valentina Sadler MD on 09/25/2019 Overview (08/22/2016): Images from the original note were not included. Contracture of finger joint 08/22/2016 Overview (08/22/2016): Images from the original note were not included. Encounters Date Type Department Care Team Description 08/13/2025 Refill [facility] [address] [facility] [address] [place] [address] Valentina Sadler MD 08/13/2025 Telephone [facility] & ONCOLOGY [address] [address] Valentina Sadler MD JOCELYN-ISSUES 08/10/2025 9:38 AM EST - 08/10/2025 11:59 PM EST Hospital Encounter [facility] [address] [address] Discharge Disposition: Home or Self Care 08/06/2025 2:51 PM EST - 08/06/2025 11:59 PM EST Hospital Encounter [facility] OUTPATIENT PHYSICAL THERAPY [address] [place] [address] John Devine, PT Pressure injury of sacral region, stage 2 (Primary Dx) Discharge Disposition: Home or Self Care 08/06/2025 Readmission Management [facility] [address] [facility] [place] [place] [address] Lavinia Quiros RN 08/06/2025 Travel 08/05/2025 11:30 AM EST - 08/05/2025 11:59 PM EST Hospital Encounter [facility] [address] [facility] [address] Discharge Disposition: Home or Self Care 08/05/2025 Telephone [facility] [address] [facility] [address] Valentina Sadler MD JOCELYN-BLOOD THINNER 08/05/2025 Clinical Support No Requirements [facility] NEUROSURGERY [address] [facility] [address] [place] [address] Bryn Valera MD Metastasis to brain (Primary Dx) 08/04/2025 1:00 PM EST - 08/04/2025 11:59 PM EST Hospital Encounter [facility] NONINVASIVE LAB [address] [facility] 3rd [place] [address] Valentina Sadler MD Left leg swelling; Pressure injury of skin of left buttock, unspecified injury stage Discharge Disposition: Home or Self Care 08/04/2025 Travel 08/03/2025 Refill [facility] & ONCOLOGY [address] [facility] [address] [place] [address] Valentina Sadler MD 08/03/2025 Telephone [facility] ONCOLOGY [address] [facility] [address] [place] [address] ARI-SYMPTOMS CONCERN/CLINICAL 08/02/2025 7:50 AM EST Hospital Encounter [facility] [address] [facility] [address] [place] [address] 08/02/2025 Refill [facility]COLOGY [address] [facility] [address] [place] [address] Valentina Sadler MD 08/02/2025 Telephone [facility]COLOGY [address] [facility] [address] [place] [address] Valentina Sadler MD JOCELYN-TRIAGE 08/02/2025 Travel 07/29/2025 Readmission Management [facility] [address] [place] [address] Kassandra Betancourt, RN 07/29/2025 Refill [facility] & ONCOLOGY [address] [facility] [address] [place] [address] Valentina Sadler MD Type 2 diabetes mellitus with other specified complication, 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 (Primary Dx) 07/29/2025 Telephone [facility] HEMAT[facility] & ONCOLOGY [address] [place] [phone] Valentina Sadler MD PADMANABHAN; insulin prescription 07/28/2025 10:00 AM EDT Office Visit [facility] ONCOLOGY [address] [address] Valentina Sadler MD Adenocarcinoma of 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 (Primary Dx); Metastasis to bone; Malignant neoplasm metastatic to brain 07/28/2025 9:18 AM EDT - 07/28/2025 11:59 PM EDT Hospital Encounter [facility] [address] [place] [address] Valentina Sadler MD Malignant neoplasm of upper-outer quadrant of left breast in female, estrogen receptor positive (Primary Dx); Adenocarcinoma of 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; Encounter for care related to vascular access port Discharge Disposition: Home or Self Care 07/28/2025 5:10 AM EDT - 07/28/2025 11:59 PM EDT Hospital Encounter [facility] [address] [address] Discharge Disposition: Home or Self Care 07/28/2025 Telephone [facility]COLOGY [address] [address] ARI - MISSED CALL 07/28/2025 Refill [facility] & ONCOLOGY [address] [place] [address] Valentina Sadler MD 07/28/2025 Readmission Management [facility] [address] [place] [address] Temi Walsh, DERRICK 07/28/2025 Travel 07/27/2025 Readmission Management [facility] [address] [place] [address] Denise Catherine RN 07/26/2025 1:00 PM EDT - 07/26/2025 11:59 PM EDT Hospital Encounter [facility] [address] [address] Discharge Disposition: Home or Self Care 07/16/2025 8:30 AM EDT - 07/16/2025 11:59 PM EDT Hospital Encounter [facility] [address] [address] Discharge Disposition: Home or Self Care 2025 8:13 PM EDT - 07/27/2025 4:48 PM EDT Hospital Encounter [address] [place] [address] Carson Colvin MD Butler, Jennifer, MD Cordray, Ann, MD Russell, Marc P, MD Lyons, MD Ida Hamlin Bryce, DO Cauda equina syndrome (Primary Dx); Metastatic malignant neoplasm, unspecified site; Adenocarcinoma of 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; Malignant neoplasm of upper-outer quadrant of left breast in female, estrogen receptor positive; Carcinoma of breast metastatic to bone, unspecified laterality; Falls; Spinal cord mass; Brain metastases Discharge Disposition: Home or Self Care 2025 Travel 2025 Telephone [facility] HEM[facility] & ONCOLOGY [address] [place] [address] Valentina Sadler MD JOCELYN-TRIAGE 06/16/2025 3:30 PM EDT Office Visit [facility]EM[facility] & ONCOLOGY [address] [address] Valentina Sadler MD Dysuria (Primary Dx); Malignant neoplasm metastatic to brain; Malignant neoplasm of upper-outer quadrant of left breast in female, estrogen receptor positive 06/16/2025 2:30 PM EDT Infusion [facility] OUTPATIENT ONCOLOGY [facility] [address] [facility] [address] [place] [address] Encounter for care related to vascular access port (Primary Dx); Adenocarcinoma of 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 06/16/2025 Refill [facility] & ONCOLOGY [address] [facility] [address] [place] [address] Valentina Sadler MD 06/16/2025 Travel 06/10/2025 9:46 AM EDT - 06/10/2025 11:59 PM EDT Hospital Encounter [facility] [address] [place] [address] Adenocarcinoma of 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 Discharge Disposition: Home or Self Care 06/10/2025 9:46 AM EDT - 06/10/2025 11:59 PM EDT Hospital Encounter [facility] [address] [place] [address] Adenocarcinoma of 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 Discharge Disposition: Home or Self Care 06/10/2025 Travel 05/17/2025 Refill [facility] [place] [address] [facility] [address] [place] [address] Valentina Sadler MD Adenocarcinoma of 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; Malignant neoplasm metastatic to brain 05/17/2025 Refill [facility] ONCOLOGY [address] [facility] [address] [address] [place] [address] Valentina Sadler MD 05/17/2025 Telephone [facility] ONCOLOGY [address] [facility] [address] [place] [address] Valentina Sadler MD Med Refill; JOCELYN - REFILL 05/17/2025 Refill [facility] ONCOLOGY [address] [facility] [address] [address] [place] [address] Valentina Sadler MD 05/17/2025 Refill [facility] & ONCOLOGY [address] [facility] [address] [place] [address] Ez Colin MD Adenocarcinoma of 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; Malignant neoplasm metastatic to brain 05/17/2025 Refill [facility] & ONCOLOGY [address] [facility] [address] [address] [place] [address] Ez Colin MD Adenocarcinoma of 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; Malignant neoplasm metastatic to brain from Last 3 Months Immunizations Immunization Administration Dates Next Due COVID-19 (PFIZER) Purple Cap Monovalent 01/27/20,07/19/2021 12/28/2021 Covid-19 (Pfizer) Humphries Cap Monovalent 02/09/2022 Fluzone (or Fluarix & Flulaval for VFC) >6mos ,07/15/2020 Influenza, Unspecified 08/02/2022 Family History Medical History Relation Name Comments No Known Problems Father Cancer Mother Diabetes Mother Lung cancer Mother Cancer Sister Diabetes Sister Kidney cancer Sister Breast cancer Neg Hx Endometrial cancer Neg Hx Ovarian cancer Neg Hx Relation Name Status Comments Father Mother Sister Social History Tobacco Use Types Packs/Day Years [...] care, and heating? Not very hard 07/15/2025 [facility] [place] [facility] Occup[facility] - Occupational Stress [...] things needed for daily living? No 07/15/2025 [facility] Utilities Answer Date Recorded In the past [...] GED or equivalent No 07/15/2025 Preferred Language Djiboutian 07/15/2025 PHQ-2 Answer Date Recorded Patient Health Questionnaire-2 Score 0 07/15/2025 Comments No Sex and Gender Information Value Date Recorded Sex Assigned at Not on file Legal Sex Female 11:35 AM EDT Gender Identity Not on file Sexual Orientation Not on file Last Filed Vital Signs Vital Sign Reading Time Taken Comments Blood Pressure 126/68 07/28/2025 9:42 AM EDT RUE Pulse 88 07/28/2025 9:42 AM EDT Temperature 36.1 C (97 F) 07/28/2025 9:42 AM EDT Respiratory Rate 16 07/28/2025 9:42 AM EDT Oxygen Saturation 100% 07/28/2025 9:42 AM EDT RA Inhaled Oxygen Concentration - - Weight 76 kg (167 lb 8.8 oz) 08/04/2025 1:40 PM EST Height 170.2 cm (5' 7 ) 07/28/2025 9:42 AM EDT Body Mass Index 26.24 07/28/2025 9:42 AM EDT Plan of Treatment Upcoming Encounters Date Type Department Care Team (Late st Contact Info) Description 08/18/2025 8:45 AM EST Appointment [facility]OG[facility] [address] [place] [address] 08/18/2025 9:15 AM EST Office Visit [facility] HEMATOLOG[facility] & ONCOLOGY [address] [phone] Valentina Sadler MD [address] [address] 08/18/2025 9:30 AM EST Appointment [facility] [address] [place] [address] 09/13/2025 1:00 PM EST Clinical Support [facility] [address] [place] [phone] Lita Luis Godfrey, FLAVOR EXTRACTOR [address] [place] [address] Health Maintenance Due Date Last Done Comments Annual Gynecologic Pelvic an d Breast Exam 1961 DIABETIC EYE EXAM 1971 DIABETIC FOOT EXAM 1971 URINE MICROALBUMIN-CREATININ E RATIO (uACR) 1971 Pneumococcal Vaccine 50+ (1 of 2 - PCV) 1980 TDAP/TD VACCINES (1 - Tdap) 1980 ZOSTER VACCINE (1 of 2) 1980 PAP SMEAR 1982 COLOGUARD 2006 COLON CANCER SCREENING 5 YEA R SIGMOIDOSCOPY 2006 COLONOSCOPY 2006 [address] CANCER SCREENING 2006 CT COLONOGRAPHY 2006 FECAL OCCULT BLOOD TEST 2006 FIT Testing (1 year) 2006 ANNUAL PHYSICAL 02/08/2017 HEPATITIS C SCREENING 02/08/2017 MAMMOGRAM 01/26/2021 01/26/2019, 05/0 12/2017, 07/05/2017, Additional history exists INFLUENZA VACCINE 04/30/2025 08/14/2024, , 08/02/2022, Additional history exists PT PLAN OF CARE 11/04/2025 08/06/2025 HEMOGLOBIN A1C 01/13/2026 07/15/2025 Goals Goal Patient Goal Type Associated Problems Recent Progress Patient-Stated? Author [facility] General Goal General No Leighann Lam, PharmD Note: Clinical goal/therapeutic target: disease control, per the recent oncology clinic notes and labs. Procedures Procedure Name Priority Date/Time Associated Diagnosis Comments DUPLEX VENOUS LOWER EXTREMITY LEFT CAR Routine 08/04/2025 1:40 PM EST Left leg swelling Pressure injury of skin of left buttock, unspecified injury stage CBC AND DIFFERENTIAL Routine 07/28/2025 9:26 AM EDT Adenocarcinoma of 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, estrogen receptor positive CBC WITH AUTO DIFFERENTIAL Routine 07/28/2025 9:26 AM EDT Adenocarcinoma of 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, estrogen receptor positive COMPREHENSIVE METABOLIC PANEL Routine 07/28/2025 9:26 AM EDT Adenocarcinoma of 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, estrogen receptor positive POCT GLUCOSE FINGERSTICK Routine 07/27/2025 11:38 AM [...] FINGERSTICK Routine 07/19/2025 7:25 AM EDT CBC AND DIFFERENTIAL Routine 07/19/2025 6:34 AM EDT CBC WITH AUTO DIFFERENTIAL Routine 07/19/2025 6:34 AM EDT COMPREHENSIVE [...] FINGERSTICK Routine 07/18/2025 7:23 AM EDT CBC AND DIFFERENTIAL Routine 07/18/2025 6:08 AM EDT CBC WITH AUTO DIFFERENTIAL Routine 07/18/2025 6:08 AM EDT COMPREHENSIVE METABOLIC PANEL Routine 07/18/2025 6:08 AM EDT POCT GLUCOSE FINGERSTICK Routine 07/17/2025 8:08 PM EDT POCT GLUCOSE FINGERSTICK Routine 07/17/2025 4:31 PM EDT XR KNEE 1 OR 2 VW LEFT Routine 12:03 PM EDT POCT GLUCOSE FINGERSTICK Routine 07/17/2025 11:39 AM EDT POCT GLUCOSE FINGERSTICK Routine 07/17/2025 7:15 AM EDT CBC AND DIFFERENTIAL Routine 07/16/2025 8:19 AM EDT ABORH 2ND SPECIMEN VERIFICATION STAT 07/16/2025 8:19 AM EDT CBC WITH AUTO DIFFERENTIAL Routine 07/16/2025 8:19 AM EDT PHOSPHORUS Routine 07/16/2025 8:19 AM EDT COMPREHENSIVE METABOLIC PANEL Routine 07/16/2025 8:19 AM EDT MAGNESIUM Routine 07/16/2025 8:19 AM EDT POCT GLUCOSE FINGERSTICK Routine 07/15/2025 7:55 PM EDT POCT GLUCOSE FINGERSTICK Routine 07/15/2025 4:21 PM EDT MRI CERVICAL SPINE W WO CONTRAST Routine 07/15/2025 1:27 PM EDT TYPE AND SCREEN Routine 07/15/2025 9:18 AM EDT HEMOGLOBIN A1C Routine 07/15/2025 9:18 AM EDT MAGNESIUM Routine 07/15/2025 9:18 AM EDT PHOSPHORUS Routine 07/15/2025 9:18 AM EDT CBC WITH AUTO DIFFERENTIAL Routine 07/15/2025 9:18 AM EDT COMPREHENSIVE METABOLIC [...] CULTURE) STAT 2025 10:43 PM EDT CBC AND DIFFERENTIAL STAT 2025 10:06 PM EDT CBC WITH AUTO DIFFERENTIAL STAT 2025 10:06 PM EDT COMPREHENSIVE METABOLIC PANEL STAT 2025 10:[address] LUMBAR SPINE WO CONTRAST STAT 2025 9:[address] THORACIC SPINE WO CONTRAST STAT 2025 9:[address] CERVICAL SPINE WO CONTRAST STAT 2025 9:[address] HEAD WO CONTRAST STAT 2025 9 :52 PM EDT CBC AND DIFFERENTIAL Routine 06/16/2025 2:39 PM EDT Adenocarcinoma of 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 CBC WITH AUTO DIFFERENTIAL Routine 06/16/2025 2:39 PM EDT Adenocarcinoma of 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 COMPREHENSIVE METABOLIC PANEL Routine 06/16/2025 2:39 PM EDT Adenocarcinoma of 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 MRI BRAIN WO CONTRAST Routine 06/10/2025 10:52 AM EDT Adenocarcinoma of 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 CT CHEST WO CONTRAST DIAGNOSTIC Routine 06/10/2025 10:27 AM EDT Adenocarcinoma of 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 CT SOFT TISSUE NECK WO CONTRAST Routine 06/10/2025 10:27 AM EDT Adenocarcinoma of 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 CT ABDOMEN PELVIS WO CONTRAST Routine 06/10/2025 10:27 AM EDT Adenocarcinoma of 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 POCT CREATININE Routine 06/10/2025 9:59 AM EDT SCANNED - INFLUENZA 08/02/2022 MAMMO DIAGNOSTIC DIGITAL TOMOSYNTHESIS BILATERAL W CAD Routine 01/26/2019 9:17 AM EDT Pain of left breast from Last 3 Months or Most Recently Relevant to Health Maintenance Results * Duplex Venous Lower Extremity - [...] MD CV VASCULAR ORDERABLES Fi nal Result * (ABNORMAL) CBC Auto Differential (07/28/2025 9:26 AM EDT) Only the most recent of7 resultswithin the time period is included. WBC 8.30 3.40 - 10.80 10*3/mm3 07/28/2025 9:39 AM EDT [facility] RBC 3.32(L) 3.77 - 5.28 10*6/mm3 07/28/2025 9:39 AM EDT [facility] Hemoglobin 8.7(L) 12.0 - 15.9 g/dL 07/28/2025 9:39 [facility] Hematocrit 28.3(L) 34.0 - 46.6 % 07/28/2025 9:39 AM [facility] MCV 85.2 79.0 - 97.0 fL 07/28/2025 9:39 AM EDT [facility] MCH 26.2(L) 26.6 - 33.0 pg 07/28/2025 9:39 AM [facility] MCHC 30.7(L) 31.5 - 35.7 g/dL 07/28/2025 9:39 AM [facility] RDW 17.7(H) 12.3 - 15.4 % 07/28/2025 9:39 AM [facility] RDW-SD 55.5(H) 37.0 - 54.0 fl 07/28/2025 9:39 AM [facility] MPV 8.8 6.0 - 12.0 fL 07/28/2025 9:39 AM [facility] Platelets 81(L) 140 - 450 10*3/mm3 07/28/2025 9:39 AM [facility] Neutrophil % 91.3(H) 42.7 - 76.0 % 07/28/2025 9:39 AM [facility] Lymphocyte % 3.4(L) 19.6 - 45.3 % 07/28/2025 9:39 AM [facility] Monocyte % 4.6(L) 5.0 - 12.0 % 07/28/2025 9:39 AM [facility] Eosinophil % 0.0(L) 0.3 - 6.2 % 07/28/2025 9:39 AM [facility] Basophil % 0.1 0.0 - 1.5 % 07/28/2025 9:39 AM EDT [facility] Immature Grans % 0.6(H) 0.0 - 0.5 % 07/28/2025 9:39 AM EDT [facility] Neutrophils, Absolute 7.58(H) 1.70 - 7.00 10*3/mm3 07/28/2025 9:39 AM EDT [facility] Lymphocytes, Absolute 0.28(L) 0.70 - 3.10 10*3/mm3 07/28/2025 9:39 AM EDT [facility] Monocytes, Absolute 0.38 0.10 - 0.90 10*3/mm3 07/28/2025 9:39 AM EDT [facility] Eosinophils, Absolute 0.00 0.00 - 0.40 10*3/mm3 07/28/2025 9:39 AM EDT [facility] Basophils, Absolute 0.01 0.00 - 0.20 10*3/mm3 07/28/2025 9:39 AM EDT [facility] Immature Grans, Absolute 0.05 0.00 - 0.05 10*3/mm3 07/28/2025 9:39 AM EDT [facility] Blood Port / Unknown 07/28/2025 9: 26 AM EDT 07/28/2025 9:36 AM EDT Valentina Sadler MD LAB BLOOD ORDERABLES Sherry saucedo Result [facility]
[address] [place] [address], * (ABNORMAL) Comprehensive metabolic panel (07/28/2025 9:26 AM EDT) Only the most recent of8 resultswithin the time period is included. Glucose 274(H) 65 - 99 mg/dL 07/28/2025 10:14 AM EDT [facility] BUN 55.8(H) 8.0 - 23.0 mg/dL 07/28/2025 10:14 AM [facility] Creatinine 1.34(H) 0.57 - 1.00 mg/dL 07/28/2025 10:14 AM [facility] Sodium 134(L) 136 - 145 mmol/L 07/28/2025 10:14 AM [facility] Potassium 4.5 3.5 - 5.2 mmol/L 07/28/2025 10:14 AM [facility] Chloride 100 98 - 107 mmol/L 07/28/2025 10:14 AM [facility] CO2 22.1 22.0 - 29.0 mmol/L 07/28/2025 10:14 AM [facility] Calcium 8.7 8.6 - 10.5 mg/dL 07/28/2025 10:14 AM [facility] Total Protein 6.2 6.0 - 8.5 g/dL 07/28/2025 10:14 AM [facility] Albumin 3.4(L) 3.5 - 5.2 g/dL 07/28/2025 10:14 AM [facility] ALT (SGPT) 428(H) 1 - 33 U/L 07/28/2025 10:14 AM [facility] AST (SGOT) 97(H) 1 - 32 U/L 07/28/2025 10:14 AM [facility] Alkaline Phosphatase 188(H) 39 - 117 U/L 07/28/2025 10:14 AM [facility] Total Bilirubin 0.5 0.0 - 1.2 mg/dL 07/28/2025 10:14 AM [facility] Globulin 2.8 gm/dL 07/28/2025 10:14 AM [facility] Comment:Calculated Result A/G Ratio 1.2 g/dL 07/28/2025 10:14 AM [facility] BUN/Creatinine Ratio 41.6(H) 7.0 - 25.0 07/28/2025 10:14 AM EDT [facility] Anion Gap 11.9 5.0 - 15.0 mmol/L 07/28/2025 10:14 AM EDT [facility] eGFR 44.4(L) >60.0 mL/min/1.7 3 07/28/2025 10:14 AM EDT [facility] Blood Port / Unknown 07/28/2025 9: 26 AM EDT 07/28/2025 9:51 AM EDT Narrative [facility] - 07/28/2025 10:14 AM EDT [...] MD LAB BLOOD ORDERABLES Sherry l Result [facility]
[address] [place] [address], * (ABNORMAL) POC Glucose Once (07/27/2025 11:38 AM EDT) Only the most recent of42 resultswithin the time period is included. Glucose 187(H) 70 - 130 mg/dL 07/27/2025 11:41 AM EDT [facility] Comment:Serial Number: [id number] Blood 07/27/2025 11:3 8 AM EDT 07/27/2025 11:41 AM EDT Yury Prieto DO POINT OF CARE TEST ORDERABLES Fi nal Result [facility]
[address] [place] [address], * LIMITED 2D ECHO W/ CONTRAST (07/24/2025 3:40 PM EDT) [facility] CV VAS BP RIGHT ARM 121/52 [...] adverse reaction to image enhancer was noted. us Valentina Sadler MD CV ECHO ORDERABLES Final Result * MRI Abdomen With & Without Contrast [...] MD 07/23/2025 8:14 AM EDT Workstation ID: [id number] Narrative 07/23/2025 8:14 AM EDT MRI ABDOMEN [...] cysts. No dilated bowel loops within the [id number]. No pathologically enlarged lymph nodes. No abdominal [...] cysts. No dilated bowel loops within the [id number].No pathologically enlarged lymph nodes. No abdominal aortic [...] MD 07/23/2025 8:14 AM EDT Workstation ID: [id number] Valentina Sadler MD IMG MRI ORDERABLES Final Result * (ABNORMAL) Basic Metabolic Panel (07/22/2025 7:43 AM EDT) Glucose 275(H) 65 - 99 mg/dL 07/22/2025 8:16 AM EDT [facility] BUN 48.3(H) 8.0 - 23.0 mg/dL 07/22/2025 8:16 AM EDT [facility] Creatinine 1.35(H) 0.57 - 1.00 mg/dL 07/22/2025 8:16 AM EDT [facility] Sodium 136 136 - 145 mmol/L 07/22/2025 8:16 AM EDT [facility] Potassium 4.8 3.5 - 5.2 mmol/L 07/22/2025 8:16 AM EDT [facility] Chloride 101 98 - 107 mmol/L 07/22/2025 8:16 AM EDT [facility] CO2 27.0 22.0 - 29.0 mmol/L 07/22/2025 8:16 AM EDT [facility] Calcium 9.1 8.6 - 10.5 mg/dL 07/22/2025 8:16 AM EDT [facility] BUN/Creatinine Ratio 35.8(H) 7.0 - 25.0 07/22/2025 8:16 AM EDT [facility] Anion Gap 8.0 5.0 - 15.0 mmol/L 07/22/2025 8:16 AM [facility] eGFR 44.0(L) >60.0 mL/min/1.7 3 07/22/2025 8:16 AM EDT [facility] Blood Venipuncture / Unknown 07/22/2025 7:43 AM EDT 07/22/2025 7:50 AM EDT Narrative [facility] - 07/22/2025 8:16 AM [...] MD LAB BLOOD ORDERABLES Final Res ult [facility]
[address] [place] [address], [place] [phone] * (ABNORMAL) Potassium (07/21/2025 2:10 AM EDT) Potassium 5.6(H) 3.5 - 5.2 mmol/L 07/21/2025 3:08 AM EDT [facility] Blood Venipuncture / Unknown 07/21/2025 2:10 AM EDT 07/21/2025 2:50 AM EDT us Carl Shook MD LAB BLOOD ORDERABLES Final Res ult [facility]
[address] [place] [address], [place] [phone] * XR Abdomen KUB (07/20/2025 11:51 PM EDT) Anatomical Region Laterality Modality Body, Abdomen N/A Radiographic Laura ging 07/20/2025 11:5 2 PM EDT Impressions 07/20/2025 11:53 PM EDT Impression: Previously described large stool burden appears to have resolved. Nonobstructive bowel gas pattern. Mild stool burden present. Electronically Signed: Bridgette Campuzano MD 07/20/2025 11:53 PM EDT Workstation ID: [id number] Narrative 07/20/2025 11:53 PM EDT XR ABDOMEN [...] MD 07/20/2025 11:53 PM EDT Workstation ID: [id number] Emma Styles PA-C IMG DIAGNOSTIC IMAGI NG ORDERABLES Final Result * CT Abdomen Pelvis Without Contrast (07/18/2025 6:47 PM EDT) Only the most recent of2 resultswithin the time period is included. Anatomical Region Laterality Modality Abdomen, Pelvis N/A [...] MD 07/19/2025 8:09 AM EDT Workstation ID: [id number] Narrative 07/19/2025 8:[address] ABDOMEN [...] MD 07/19/2025 8:09 AM EDT Workstation ID: [id number] Swati Rutledge MD [facility] CT ORDERABLES Final Result * XR Knee 1 or 2 View Left (07/17/2025 12:03 PM EDT) Anatomical Region Laterality Modality Lower Extremities, Knee Left [facility] 07/17/2025 1:00 PM EDT Impressions 07/17/2025 1:02 PM EDT 1.Small suprapatellar effusion. 2.Mild tricompartmental osteophyte formation without definite joint space narrowing. Electronically Signed: Shahriar Chacon 07/17/2025 1:02 PM EDT Workstation ID: [id number] Narrative 07/17/2025 1:02 PM EDT XR KNEE [...] Chacon 07/17/2025 1:02 PM EDT Workstation ID: [id number] us Swati Rutledge MD IMG DIAGNOSTIC IMAGING ORDERABLE S Final Result * ABO RH Specimen Verification (07/16/2025 8:19 AM EDT) ABO Type O 07/16/2025 10:05 AM EDT [facility] RH type Positive 07/16/2025 10:05 AM EDT [facility] Blood Venipuncture / Unknown 07/16/2025 8:19 AM EDT 07/16/2025 9:05 AM EDT us Swati Rutledge MD BLOOD BANK TEST ORDERABLES Final Result [facility]
[address] [place] [address], * Phosphorus (07/16/2025 8:19 AM EDT) Only the most recent of2 resultswithin the time period is included. Phosphorus 3.6 2.5 - 4.5 mg/dL 07/16/2025 9:35 AM EDT [facility] Blood Venipuncture / Unknown 07/16/2025 8:19 AM EDT 07/16/2025 9:04 AM EDT us Swati Rutledge MD LAB BLOOD ORDERABLES Final Resul t Performing Organization Address City/[facility] Co de Phone Number [facility]
[address] [place] [address], [place] [phone] * (ABNORMAL) Magnesium (07/16/2025 8:19 AM EDT) Only the most recent of2 resultswithin the time period is included. Magnesium 2.9(H) 1.6 - 2.4 mg/dL 07/16/2025 9:38 AM EDT [facility] Blood Venipuncture / Unknown 07/16/2025 8:19 AM EDT 07/16/2025 9:04 AM EDT Swati Rutledge MD LAB BLOOD ORDERABLES Final Resul t Performing Organization Address [facility] Co de Phone Number [facility]
[address] [place] [address], * MRI Cervical Spine With & Without [...] MD 07/15/2025 2:45 PM EDT Workstation ID: [id number] Narrative 07/15/2025 2:45 PM EDT MRI CERVICAL [...] appears to be intramedullary. There is diffuse [id number] within the spinal cord extending from the level of [id number] through the visualized upper thoracic spine. These are new findings from prior MRI from 2021. Findings areconcerning for metastasis, with primary spinal cord neoplasm felt lesslikely. 2.Several sclerotic osseous metastasis, better characterized on recentprior CT. 3.Moderate multilevel degenerative changes of cervical spine as describedabove. Electronically Signed: Gabino Peace MD 07/15/2025 2:45 PM EDT Workstation ID: [id number] Carson Colvin MD IMG MRI ORDERABLES Final Resu lt * Type & Screen (07/15/2025 9:18 AM EDT) ABO Type O 07/15/2025 10:39 AM EDT [facility] RH type Positive 07/15/2025 10:39 AM EDT [facility] Antibody Screen Negative 07/15/2025 10:39 AM EDT [facility] T&S Expiration Date 07/18/2025 11:59:59 PM 07/15/2025 10:39 AM EDT [facility] Blood Venipuncture / Unknown 07/15/2025 9:18 AM EDT 07/15/2025 9:34 AM EDT Meaghan Gomez MD BLOOD BANK TEST ORDERABLES Ed ited Result - Final [facility]
[address] [place] [address], * (ABNORMAL) Hemoglobin A1c (07/15/2025 9:18 AM EDT) Hemoglobin A1C 5.83(H) 4.80 - 5.60 % 07/15/2025 9:55 AM EDT [facility] Blood Venipuncture / Unknown 07/15/2025 9:18 AM EDT 07/15/2025 9:30 AM EDT Narrative [facility] - 07/15/2025 9:55 AM EDT Hemoglobin A1C Ranges: Increased Risk for Diabetes 5.7% to 6.4% Diabetes >= 6.5% Diabetic Goal < 7.0% Meaghan Gomez MD LAB BLOOD ORDERABLES Final Re sult [facility]
[address] [place] [phone], * XR Tibia Fibula 2 View Left [...] MD 07/15/2025 12:01 AM EDT Workstation ID: [id number] Narrative 07/15/2025 12:01 AM EDT XR FEMUR [...] MD 07/15/2025 12:01 AM EDT Workstation ID: [id number] us Carson Colvin MD IMG DIAGNOSTIC IMAGING [...] MD 07/15/2025 12:01 AM EDT Workstation ID: [id number] Narrative 07/15/2025 12:01 AM EDT XR FEMUR [...] MD 07/15/2025 12:01 AM EDT Workstation ID: [id number] us Carson Colvin MD IMG DIAGNOSTIC IMAGING [...] MD 07/15/2025 12:01 AM EDT Workstation ID: [id number] Narrative 07/15/2025 12:01 AM EDT XR FEMUR [...] MD 07/15/2025 12:01 AM EDT Workstation ID: [id number] us Carson Colvin MD IMG DIAGNOSTIC IMAGING [...] MD 2025 11:58 PM EDT Workstation ID: [id number] Narrative 2025 11:58 PM EDT XR CHEST [...] MD 2025 11:58 PM EDT Workstation ID: [id number] us Carson Colvin MD IMG DIAGNOSTIC IMAGING [...] MD 2025 11:45 PM EDT Workstation ID: [id number] Narrative 2025 11:45 PM EDT MRI BRAIN [...] MD 2025 11:45 PM EDT Workstation ID: [id number] us Carson Colvin MD IMG MRI ORDERABLES [...] MD 07/15/2025 12:09 AM EDT Workstation ID: [id number] Narrative 07/15/2025 12:09 AM EDT MRI LUMBAR [...] a large kidney stone. Procedure Note Homero Peerz MD - 07/15/2025 MRI LUMBAR SPINE W [...] metastasis in the T12 vertebral body and [id number] rib appears new from 2021. There is [...] MD 07/15/2025 12:09 AM EDT Workstation ID: [id number] us Carson Colvin MD IM MRI ORDERABLES Final Resu lt * (ABNORMAL) Urinalysis, Microscopic Only - Urine, Clean Catch (2025 10:43 PM EDT) RBC, UA 3-5(A) None Seen, 0-2 /HPF 2025 11:09 PM EDT [facility] WBC, UA 0-2 None Seen, 0-2 /HPF 2025 11:09 PM EDT [facility] Bacteria, UA None Seen None Seen /HPF 2025 11:09 PM EDT [facility] Squamous Epithelial Cells, UA 0-2 None Seen, 0-2 /HPF 2025 11:09 PM EDT [facility] Hyaline Casts, UA None Seen None Seen /LPF 2025 11:09 PM EDT [facility] Methodology Automated Microscopy 2025 11:09 PM EDT [facility] Urine Urine specimen obtained by clean catch procedure / Unknown Collection / Unknown 2025 10:43 PM EDT 2025 11:00 PM EDT Carson Colvin MD URINE ORDERABLES Final Result [facility]
[address] [place] [address], * (ABNORMAL) Urinalysis With Microscopic If Indicated (No Culture) - Urine, Clean Catch (2025 10:43 PM EDT) Color, UA Yellow Yellow, Straw 2025 11:06 PM EDT [facility] Appearance, UA Clear Clear 2025 11:06 PM EDT [facility] pH, UA 7.5 5.0 - 8.0 2025 11:06 PM EDT [facility] Specific [place], UA 1.011 1.005 - 1.030 2025 11:06 PM EDT [facility] Glucose, UA Negative Negative 2025 11:06 PM EDT [facility] Ketones, UA Negative Negative 2025 11:06 PM EDT [facility] Bilirubin, UA Negative Negative 2025 11:06 PM EDT [facility] Blood, UA Small (1+)(A) Negative 2025 11:06 PM EDT [facility] Protein, UA 30 mg/dL (1+)(A) Negative 2025 11:06 PM EDT [facility] Leuk Esterase, UA Trace(A) Negative 2025 11:06 PM EDT [facility] Nitrite, UA Negative Negative 2025 11:06 PM EDT [facility] Urobilinogen, UA 0.2 E.U./dL 0.2 - 1.0 E.U./dL 2025 11:06 PM EDT [facility] Urine Urine specimen obtained by clean catch procedure / Unknown Collection / Unknown 2025 10:43 PM EDT 2025 11:00 PM EDT Carson Colvin MD URINE ORDERABLES Final Result [facility]
[address] [place] [address], * CT Lumbar Spine Without Contrast (2025 [...] MD 2025 10:10 PM EDT Workstation ID: [id number] Narrative 2025 10:[address] HEAD [...] neuroforaminal stenosis on the left at T10-T11 [id number] similar to prior exam. Heterogeneous more expansile [...] MD 2025 10:10 PM EDT Workstation ID: [id number] us Carson Colvin MD IMG CT ORDERABLES [...] MD 2025 10:10 PM EDT Workstation ID: [id number] Narrative 2025 10:[address] HEAD [...] neuroforaminal stenosis on the left at T10-T11 [id number] similar to prior exam. Heterogeneous more expansile [...] MD 2025 10:10 PM EDT Workstation ID: [id number] us Carson Colvin MD [facility] CT ORDERABLES Final Resul t * CT [...] MD 2025 10:10 PM EDT Workstation ID: [id number] Narrative 2025 10:[address] HEAD [...] neuroforaminal stenosis on the left at T10-T11 [id number] similar to prior exam. Heterogeneous more expansile [...] MD 2025 10:10 PM EDT Workstation ID: [id number] us Carson Colvin MD IM CT ORDERABLES Final Resul t * CT [...] MD 2025 10:10 PM EDT Workstation ID: [id number] Narrative 2025 10:[address] HEAD [...] neuroforaminal stenosis on the left at T10-T11 [id number] similar to prior exam. Heterogeneous more expansile [...] MD 2025 10:10 PM EDT Workstation ID: [id number] us Carson Colvin MD IMG CT ORDERABLES Final Resul t * MRI Brain Without Contrast (06/10/2025 10:52 AM EDT) Anatomical Region Laterality Modality Head, Neck N/A Magnetic Resonan ce 06/10/2025 2:22 PM EDT Impressions 06/10/2025 2:29 PM EDT Impression: Evaluation of metastatic disease is limited in the absence of IV contrast. There is likely stable edema associated with previously noted metastatic lesions within the left cerebellum and right occipital lobe. No obvious new mass or mass effect is evident. Electronically Signed: Elvis Koch MD 06/10/2025 2:29 PM EDT Workstation ID: [id number] DxDesc Narrative 06/10/2025 2:29 PM EDT MRI BRAIN WO CONTRAST Date of Exam: 06/10/2025 10:45 AM EDT Indication: breast cancer with brain mets. Comparison: 03/22/2025. Technique: Routine multiplanar/multisequence sequence images of the brain were obtained without contrast administration. Findings: No acute infarct is present on diffusion weighted sequences. Midline structures appear normal and the craniocervical junction is satisfactory. There is redemonstrated evidence of intracranial metastatic disease, with evaluation significantly limited in the absence of IV contrast. Edema associated with a left cerebellar lesion appears similar and there is also likely stable T2 hyperintensity associated with a previously identified right occipital lobe metastasis. The right frontal lobe lesion is not well appreciated. No obvious new mass or mass effect is evident. There is no evidence of hemorrhage. Generalized volume loss is unchanged. The ventricles appear normal. The orbits are normal. The paranasal sinuses are clear. Procedure Note Jeff Koch MD - 06/10/2025 MRI BRAIN WO CONTRAST Date of Exam: 06/10/2025 10:45 AM EDT Indication: breast cancer with brain mets. Comparison: 03/22/2025. Technique: Routine multiplanar/multisequence sequence images of the brainwere obtained without contrast administration. Findings: No acute infarct is present on diffusion weighted sequences. Midlinestructures appear normal and the craniocervical junction is satisfactory.There is redemonstrated evidence of intracranial metastatic disease, withevaluation significantly limited in the absence of IV contrast. Edema associated with a left cerebellar lesionappears similar and there is also likely stable T2 hyperintensityassociated with a previously identified right occipital lobe metastasis.The right frontal lobe lesion is not well appreciated. No obvious new mass or mass effect is evident. There isno evidence of hemorrhage. Generalized volume loss is unchanged. Theventricles appear normal. The orbits are normal. The paranasal sinuses areclear. IMPRESSION: Impression: Evaluation of metastatic disease is limited in the absence of IV contrast.There is likely stable edema associated with previously noted metastaticlesions within the left cerebellum and right occipital lobe. No obviousnew mass or mass effect is evident. Electronically Signed: Elvis Koch MD 06/10/2025 2:29 PM EDT Workstation ID: [id number] DxDesc us Valentina Sadler MD IMG MRI ORDERABLES Final Result * CT Chest Without Contrast Diagnostic (06/10/2025 10:27 AM EDT) Anatomical Region Laterality Modality Chest N/A Computed Tomogra phy 06/15/2025 2:05 PM EDT Impressions 06/15/2025 2:21 PM EDT Impression: 1. Increasing 6 mm left upper [...] MD 06/15/2025 2:21 PM EDT Workstation ID: [id number] DxDesc DxDesc DxDesc Narrative 06/15/2025 2:[address] SOFT TISSUE NECK WO CONTRAST, CT CHEST WO CONTRAST DIAGNOSTIC, CT ABDOMEN PELVIS WO CONTRAST Date of Exam: 06/10/2025 10:19 AM EDT Indication: breast cancer. Comparison: CT neck, chest, abdomen and pelvis 11/27/2024, CT chest abdomen pelvis 02/19/2025 Technique: Axial CT images were obtained of the neck, chest, abdomen and pelvis without contrast administration. Reconstructed coronal and sagittal images were also obtained. Automated exposure control and iterative construction methods were used. Findings: Limited exam without IV contrast. CT NECK: No enlarging soft tissue mass or adenopathy in the neck. Similar asymmetric enlargement of the right thyroid gland related to a 2.8 cm right thyroid nodule. Nonemergent thyroid ultrasound could be considered if not previously assessed. No obstructive sinus disease. Probable small bilateral mastoid effusions. Symmetric parotid and submandibular glands. Nasopharynx, oropharynx and aerodigestive tract appears patent. No acute infectious/inflammatory soft tissue findings. Heterogeneous predominantly sclerotic bone lesions appear without significant change, with associated mild focal super endplate height loss at T1 unchanged from prior exam. Minimal if any bony retropulsion posteriorly. CT CHEST: Normal caliber thoracic aorta and main pulmonary artery. Right chest port catheter tip terminates near cavoatrial junction. Question minimal calcified coronary atherosclerotic disease. Heart size normal. No pericardial effusion. Esophagus unremarkable. Hypodense cardiac blood pooling which can be seen with anemia. No suspicious mediastinal, hilar, axillary or internal mammary chain adenopathy. Trachea patent. Linear bandlike areas of atelectasis/scarring otherwise no signs of active infection. No edema, effusion or pneumothorax. There is a 6 mm left upper lobe nodule image 41 series 2 increasing in size from prior exam. New 3 mm left upper lobe nodule image 28 series 2. Other small nodules and/or nodular opacities in the right upper lobe example image 33 show no significant change. Mixed sclerotic lucent metastatic right rib lesions appear grossly similar to previous exam. Other scattered sclerotic lesions throughout the spine appear without significant change. Inferior endplate Schmorl's node at T5 is unchanged. Mild height loss at T10 without significant change. CT abdomen pelvis: Normal hepatic size and contour. Few small hypodense liver lesions are without significant change from prior exam possibly benign hepatobiliary cysts. Similar splenomegaly measuring 13.8 x 9.7 cm in axial cross-section image 46. Gallbladder and biliary tree unremarkable. Atrophic pancreas. No suspicious adrenal nodule. Nonobstructing renal calculi in both inferior renal poles measuring up to 1.1 cm on the left. No hydronephrosis. Urinary bladder under distended with trace intraluminal gas. Uterus and adnexa unremarkable. Expected configuration stomach and duodenum. Moderate colonic stool. No evidence of bowel obstruction or active inflammation. Aortic atherosclerotic disease without aneurysmal dilation. No enlarging adenopathy. No free air. No significant ascites. No drainable fluid collection. Mixed lucent and sclerotic bone lesions in the spine and pelvis are without significant change from prior exam. Associated pathologic fracture and few millimeter bony retropulsion at L4 resulting in at least moderate if not severe central spinal canal stenosis appears similar to prior. No convincing new bone lesion. Procedure Note Galen Hawley MD - 06/15/2025 CT SOFT TISSUE NECK WO CONTRAST, CT CHEST WO CONTRAST DIAGNOSTIC, CTABDOMEN PELVIS WO CONTRAST Date of Exam: 06/10/2025 10:19 AM EDT Indication: breast cancer. Comparison: CT neck, chest, abdomen and pelvis 11/27/2024, CT chest abdomenpelvis 02/19/2025 Technique: Axial CT images were obtained of the neck, chest, abdomen andpelvis without contrast administration. Reconstructed coronal andsagittal images were also obtained. Automated exposure control anditerative construction methods were used. Findings: Limited exam without IV contrast. CT NECK: No enlarging soft tissue mass or adenopathy in the neck. Similarasymmetric enlargement of the right thyroid gland related to a 2.8 cmright thyroid nodule. Nonemergent thyroid ultrasound could be consideredif not previously assessed. No obstructive sinus disease. Probable small bilateral mastoid effusions.Symmetric parotid and submandibular glands. Nasopharynx, oropharynx andaerodigestive tract appears patent. No acute infectious/inflammatory softtissue findings. Heterogeneous predominantly sclerotic bone lesions appear without significant change,with associated mild focal super endplate height loss at T1 unchanged fromprior exam. Minimal if any bony retropulsion posteriorly. CT CHEST: Normal caliber thoracic aorta and main pulmonary artery. Rightchest port catheter tip terminates near cavoatrial junction. Questionminimal calcified coronary atherosclerotic disease. Heart size normal. Nopericardial effusion. Esophagus unremarkable. Hypodense cardiac blood pooling which can be seen withanemia. No suspicious mediastinal, hilar, axillary or internal mammarychain adenopathy. Trachea patent. Linear bandlike areas ofatelectasis/scarring otherwise no signs of active infection. No edema, effusion or pneumothorax. There is a 6 mm left upperlobe nodule image 41 series 2 increasing in size from prior exam. New 3 mmleft upper lobe nodule image 28 series 2. Other small nodules and/ornodular opacities in the right upper lobe example image 33 show no significant change. Mixed sclerotic lucentmetastatic right rib lesions appear grossly similar to previous exam.Other scattered sclerotic lesions throughout the spine appear withoutsignificant change. Inferior endplate Schmorl's node at T5 is unchanged. Mild height loss at T10 withoutsignificant change. CT abdomen pelvis: Normal hepatic size and contour. Few small hypodenseliver lesions are without significant change from prior exam possiblybenign hepatobiliary cysts. Similar splenomegaly measuring 13.8 x 9.7 cmin axial cross-section image 46. Gallbladder and biliary tree unremarkable. Atrophic pancreas. Nosuspicious adrenal nodule. Nonobstructing renal calculi in both inferiorrenal poles measuring up to 1.1 cm on the left. No hydronephrosis. Urinarybladder under distended with trace intraluminal gas. Uterus and adnexa unremarkable. Expected configurationstomach and duodenum. Moderate colonic stool. No evidence of bowelobstruction or active inflammation. Aortic atherosclerotic disease withoutaneurysmal dilation. No enlarging adenopathy. No free air. No significant ascites. No drainable fluidcollection. Mixed lucent and sclerotic bone lesions in the spine andpelvis are without significant change from prior exam. Associatedpathologic fracture and few millimeter bony retropulsion at L4 resulting in at least moderate if not severe centralspinal canal stenosis appears similar to prior. No convincing new bonelesion. IMPRESSION: Impression: 1. Increasing 6 mm left upper lobe nodule and new 3 mm left upper lobenodule of uncertain significance at this size, possiblyinfectious/inflammatory rather than metastatic. Other pulmonary nodulesshow no significant change. Recommend attention on follow-up restaging exams. 2. No other convincing signs of disease progression in the neck, chest,abdomen or pelvis within limitations of this noncontrasted exam. Grosslystable mixed lucent and sclerotic osseous metastases. 3. Stable splenomegaly. 4. Stable small hypodense liver lesions. 5. Nonobstructing renal calculi. 6. Trace intraluminal gas in the urinary bladder most commonly reflectingsequelae of recent instrumentation. Correlate with urinalysis asclinically indicated. Electronically Signed: Galen Hawley MD 06/15/2025 2:21 PM EDT Workstation ID: [id number] DxDesc DxDesc DxDesc Valentina Sadler MD IMG CT ORDERABLES Final R esult * CT Soft Tissue Neck Without Contrast (06/10/2025 10:27 AM EDT) Anatomical Region Laterality Modality Head and Neck, Vascular N/A Computed Tomography 06/15/2025 2:05 PM EDT Impressions 06/15/2025 2:21 PM EDT Impression: 1. Increasing 6 mm left upper [...] MD 06/15/2025 2:21 PM EDT Workstation ID: [id number] DxDesc DxDesc DxDesc Narrative 06/15/2025 2:[address] SOFT TISSUE NECK WO CONTRAST, CT CHEST WO CONTRAST DIAGNOSTIC, CT ABDOMEN PELVIS WO CONTRAST Date of Exam: 06/10/2025 10:19 AM EDT Indication: breast cancer. Comparison: CT neck, chest, abdomen and pelvis 11/27/2024, CT chest abdomen pelvis 02/19/2025 Technique: Axial CT images were obtained of the neck, chest, abdomen and pelvis without contrast administration. Reconstructed coronal and sagittal images were also obtained. Automated exposure control and iterative construction methods were used. Findings: Limited exam without IV contrast. CT NECK: No enlarging soft tissue mass or adenopathy in the neck. Similar asymmetric enlargement of the right thyroid gland related to a 2.8 cm right thyroid nodule. Nonemergent thyroid ultrasound could be considered if not previously assessed. No obstructive sinus disease. Probable small bilateral mastoid effusions. Symmetric parotid and submandibular glands. Nasopharynx, oropharynx and aerodigestive tract appears patent. No acute infectious/inflammatory soft tissue findings. Heterogeneous predominantly sclerotic bone lesions appear without significant change, with associated mild focal super endplate height loss at T1 unchanged from prior exam. Minimal if any bony retropulsion posteriorly. CT CHEST: Normal caliber thoracic aorta and main pulmonary artery. Right chest port catheter tip terminates near cavoatrial junction. Question minimal calcified coronary atherosclerotic disease. Heart size normal. No pericardial effusion. Esophagus unremarkable. Hypodense cardiac blood pooling which can be seen with anemia. No suspicious mediastinal, hilar, axillary or internal mammary chain adenopathy. Trachea patent. Linear bandlike areas of atelectasis/scarring otherwise no signs of active infection. No edema, effusion or pneumothorax. There is a 6 mm left upper lobe nodule image 41 series 2 increasing in size from prior exam. New 3 mm left upper lobe nodule image 28 series 2. Other small nodules and/or nodular opacities in the right upper lobe example image 33 show no significant change. Mixed sclerotic lucent metastatic right rib lesions appear grossly similar to previous exam. Other scattered sclerotic lesions throughout the spine appear without significant change. Inferior endplate Schmorl's node at T5 is unchanged. Mild height loss at T10 without significant change. CT abdomen pelvis: Normal hepatic size and contour. Few small hypodense liver lesions are without significant change from prior exam possibly benign hepatobiliary cysts. Similar splenomegaly measuring 13.8 x 9.7 cm in axial cross-section image 46. Gallbladder and biliary tree unremarkable. Atrophic pancreas. No suspicious adrenal nodule. Nonobstructing renal calculi in both inferior renal poles measuring up to 1.1 cm on the left. No hydronephrosis. Urinary bladder under distended with trace intraluminal gas. Uterus and adnexa unremarkable. Expected configuration stomach and duodenum. Moderate colonic stool. No evidence of bowel obstruction or active inflammation. Aortic atherosclerotic disease without aneurysmal dilation. No enlarging adenopathy. No free air. No significant ascites. No drainable fluid collection. Mixed lucent and sclerotic bone lesions in the spine and pelvis are without significant change from prior exam. Associated pathologic fracture and few millimeter bony retropulsion at L4 resulting in at least moderate if not severe central spinal canal stenosis appears similar to prior. No convincing new bone lesion. Procedure Note Galen Hawley MD - 06/15/2025 CT SOFT TISSUE NECK WO CONTRAST, CT CHEST WO CONTRAST DIAGNOSTIC, CTABDOMEN PELVIS WO CONTRAST Date of Exam: 06/10/2025 10:19 AM EDT Indication: breast cancer. Comparison: CT neck, chest, abdomen and pelvis 11/27/2024, CT chest abdomenpelvis 02/19/2025 Technique: Axial CT images were obtained of the neck, chest, abdomen andpelvis without contrast administration. Reconstructed coronal andsagittal images were also obtained. Automated exposure control anditerative construction methods were used. Findings: Limited exam without IV contrast. CT NECK: No enlarging soft tissue mass or adenopathy in the neck. Similarasymmetric enlargement of the right thyroid gland related to a 2.8 cmright thyroid nodule. Nonemergent thyroid ultrasound could be consideredif not previously assessed. No obstructive sinus disease. Probable small bilateral mastoid effusions.Symmetric parotid and submandibular glands. Nasopharynx, oropharynx andaerodigestive tract appears patent. No acute infectious/inflammatory softtissue findings. Heterogeneous predominantly sclerotic bone lesions appear without significant change,with associated mild focal super endplate height loss at T1 unchanged fromprior exam. Minimal if any bony retropulsion posteriorly. CT CHEST: Normal caliber thoracic aorta and main pulmonary artery. Rightchest port catheter tip terminates near cavoatrial junction. Questionminimal calcified coronary atherosclerotic disease. Heart size normal. Nopericardial effusion. Esophagus unremarkable. Hypodense cardiac blood pooling which can be seen withanemia. No suspicious mediastinal, hilar, axillary or internal mammarychain adenopathy. Trachea patent. Linear bandlike areas ofatelectasis/scarring otherwise no signs of active infection. No edema, effusion or pneumothorax. There is a 6 mm left upperlobe nodule image 41 series 2 increasing in size from prior exam. New 3 mmleft upper lobe nodule image 28 series 2. Other small nodules and/ornodular opacities in the right upper lobe example image 33 show no significant change. Mixed sclerotic lucentmetastatic right rib lesions appear grossly similar to previous exam.Other scattered sclerotic lesions throughout the spine appear withoutsignificant change. Inferior endplate Schmorl's node at T5 is unchanged. Mild height loss at T10 withoutsignificant change. CT abdomen pelvis: Normal hepatic size and contour. Few small hypodenseliver lesions are without significant change from prior exam possiblybenign hepatobiliary cysts. Similar splenomegaly measuring 13.8 x 9.7 cmin axial cross-section image 46. Gallbladder and biliary tree unremarkable. Atrophic pancreas. Nosuspicious adrenal nodule. Nonobstructing renal calculi in both inferiorrenal poles measuring up to 1.1 cm on the left. No hydronephrosis. Urinarybladder under distended with trace intraluminal gas. Uterus and adnexa unremarkable. Expected configurationstomach and duodenum. Moderate colonic stool. No evidence of bowelobstruction or active inflammation. Aortic atherosclerotic disease withoutaneurysmal dilation. No enlarging adenopathy. No free air. No significant ascites. No drainable fluidcollection. Mixed lucent and sclerotic bone lesions in the spine andpelvis are without significant change from prior exam. Associatedpathologic fracture and few millimeter bony retropulsion at L4 resulting in at least moderate if not severe centralspinal canal stenosis appears similar to prior. No convincing new bonelesion. IMPRESSION: Impression: 1. Increasing 6 mm left upper lobe nodule and new 3 mm left upper lobenodule of uncertain significance at this size, possiblyinfectious/inflammatory rather than metastatic. Other pulmonary nodulesshow no significant change. Recommend attention on follow-up restaging exams. 2. No other convincing signs of disease progression in the neck, chest,abdomen or pelvis within limitations of this noncontrasted exam. Grosslystable mixed lucent and sclerotic osseous metastases. 3. Stable splenomegaly. 4. Stable small hypodense liver lesions. 5. Nonobstructing renal calculi. 6. Trace intraluminal gas in the urinary bladder most commonly reflectingsequelae of recent instrumentation. Correlate with urinalysis asclinically indicated. Electronically Signed: Galen Hawley MD 06/15/2025 2:21 PM EDT Workstation ID: [id number] DxDesc DxDesc DxDesc Valentina Sadler MD IMG CT ORDERABLES Final R esult * (ABNORMAL) POC Creatinine (06/10/2025 9:59 AM EDT) Creatinine 2.00(H) 0.60 - 1.30 mg/dL 06/10/2025 10:30 AM EDT [facility] Comment:Serial Number: [id number] 4Operator: [id number] Blood 06/10/2025 9:59 AM EDT 06/10/2025 10:30 AM EDT Valentina Sadler MD POINT OF CARE TEST ORDERA BLES Final Result [facility]
[address] [place] [address], * SCANNED - INFLUENZA (08/02/2022) Valentina Sadler MD CHART REVIEW TABS Sherry lewis Result * Mammo Diagnostic Digital Tomosynthesis Bilateral With CAD (01/26/2019 9:17 AM EDT) Anatomical Region Laterality Modality Breast Bilateral Mammography 01/26/2019 10:2 7 AM EDT Impressions 01/26/2019 4:02 PM EDT Benign bilateral mammogram. RECOMMENDATION: 1. Annual screening mammography. 2. Clinical follow-up of left breast pain. The patient was asymptomatic today. 3. The patient is a candidate for annual screening breast MRI imaging due to her personal history of breast cancer. MRI imaging would also be more helpful than ultrasound for imaging pain at the lumpectomy site, if it recurs. BI-RADS CATEGORY 2, BENIGN. CAD was utilized. The standard false-negative rate of mammography is between 10% and 25%. Complex patterns or increased breast density will markedly elevate the false-negative rate of mammography. A results letter, in lay terminology, will be given to the patient at the conclusion of the exam. This report was finalized on 01/26/2019 4:[address] Sadie Coelho MD. Narrative 01/26/2019 4:02 PM EDT EXAMINATION: BILATERAL DIAGNOSTIC DIGITAL MAMMOGRAM WITH TOMOSYNTHESIS: HISTORY: 58-year-old patient presents for further evaluation of pain at her left lumpectomy bed. The patient is currently asymptomatic. She has a history of left breast conservation surgery and radiation therapy performed in 2013. TECHNIQUE: Bilateral low dose full field digital CC and MLO breast imaging was performed with 2D and 3D acquisitions. COMPARISON: 01/31/2018, 07/05/2017, 12/28/2016, 06/29/2016, 12/23/2015, 06/17/2015, and 12/14/2014. FINDINGS: There are scattered areas of fibroglandular density. The bilateral fibroglandular pattern and left lumpectomy bed are stable in appearance. There has been interval increase in coarse calcifications at the left 6:00 lumpectomy site consistent with evolving fat necrosis. Otherwise, no significant change is noted in scattered and grouped bilateral calcifications. No suspicious mammographic findings are identified. us Valentina Sadler MD IMG MAMMOGRAPHY ORDERABLE S Final Result from Last 3 Months or Most Recently Relevant to Health Maintenance Insurance [id number] [id number] [employer] Advance Directives * CPR (Attempt to Resuscitate) (Latest Code Status on File) Date Activated Date Inactivated Comments 07/15/2025 2:03 AM 07/27/2025 6:58 PM Question Answer Comments Code Status (Patient has no pulse and is not breathing): CPR (Attempt to Resuscitate) Medical Interventions (Patie nt has pulse or is breathing): Full Support Level Of Support Discussed With: Patient Care Teams Client Services Associate Relationship Specialty Start Date End Date Provider, No Known [facility] [place] [address] PCP - General 08/02/25
--- OUTSIDE RECORDS SUMMARY | 2025-08-15 13:29 | XMS_ITS ---
Author Organization [facility] Address [address] [place] [address] Care Team Providers [facility] Field Coordinator Name Role Phone Provider, No Known Primary Care Provider Unavail able Active Problems Problem Noted Date Diagnosed Date [...] from the original note were not included. Current Treatment and Therapy Plans OP BREAST Fam-Trastuzumab Deruxtecan-nxki* Plan Start Date:01/10/2022 Plan Provider:Valentina Sadler MD Linked Problems Malignant neoplasm of upper- outer quadrant of left breast in female, estrogen receptor positiveAdenocarcinoma of 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Breast cancer metastasized to bone Treatment Medications Current Day (Day 1 , Cycle 53 - Planned for 08/18/2025) Next Day (Day 1, Cycle 54 - Planned for 09/08/2025) No medications scheduled. No medications schedul ed. No medications scheduled. Other Current Plans OP CENTRAL VENOUS ACCESS DEVICE ACCESS, CARE, AND MAINTENANCE (CVAD)* Plan Start Date:12/20/2022 Plan Provider:Valentina Sadler MD Linked Problems Encounter for care related t o vascular access port Treatment Medications No medications scheduled. Past Treatment and Therapy Plans ONCOLOGY SUPPORTIVE CARE 1 Plan Name Start Date Discontinue Date Treatment Medications Discontinue Reason Plan Provider Cycles OP SUPPORTIVE Influenza Immunization 07/15/20 20 12/05/2020 No medications scheduled. Change in Level of Care Valentina Sadler MD 1 of 1 cycle started ONCOLOGY SUPPORTIVE CARE 2 Plan Name Start Date Discontinue Date Treatment Medications Discontinue Reason Plan Provider Cycles OP SUPPORTIVE Denosumab (Xgeva) 12 weeks after 06/15/2021 10/07/2019 05/17/2022 denosumab (XGEVA) Change in Level of Care Valentina Sadler MD 20 of 20 cycles started ONCOLOGY TREATMENT Plan Name Start Date Discontinue Date Treatment Medications Discontinue Reason Plan Provider Cycles OP BREAST Tucatinib / Capecitabine / Trastuzumab-brody s 1 12/27/2021 capecitabine (XELODA) Change in Level of Care Valentina Mccabe MD 20 of 23 cycles started OP BREAST Ado-Trastuzumab Emtansine 07/15/20 20 11/09/2020 ado-trastuzumab (KADCYLA) chemo IVPB Progression Valentina Mccabe MD 6 of 17 cycles started OP BREAST Lapatinib / Trastuzumab-brody s Q21D 05/06/2020 07/08/2020 lapatinib (TYKERB) Progression Valentina Mccabe MD 3 of 18 cycles started OP BREAST Pertuzumab / Trastuzumab-brody s Q21D 0 04/25/2020 pertuzumab (PERJETA) chemo IVPB Progression Valentina Mccabe MD 4 of 12 cycles started OP BREAST Pertuzumab / Trastuzumab-brody s / PACLitaxel 0 02/12/2020 PACLItaxel (TAXOL) chemo IVPB 250 mLpertuzumab (PERJETA) chemo IVPB Therapy Complete Valentina Mccabe MD 6 of 6 cycles started ONCOLOGY TREATMENT 2 Plan Name Start Date Discontinue Date Treatment Medications Discontinue Reason Plan Provider Cycles OP BREAST Neratinib 5 07/15/2025 capecitabine (XELODA) Progression Valentina Sadler MD Treatment not started Therapy Plan 1 - Infusion Treatment Plan Name Start Date Discontinue Date Treatment Medications Discontinue Reason Plan Provider OP CENTRAL VENOUS ACCESS DEVICE ACCESS, CARE, AND MAINTENANCE (CVAD) 10/27/2020 11/09/2021 No medications scheduled. Therapy Complete Valentina Sadler MD OP CENTRAL VENOUS ACCESS DEVICE ACCESS, CARE, AND MAINTENANCE (CVAD) 10/09/2019 10/27/2020 No medications scheduled. Therapy Complete Valentina Sadler MD Therapy Plan 2 Plan Name Start Date Discontinue Date Treatment Medications Discontinue Reason Plan Provider OP INFLUENZA IMMUNIZATION 08/17/2021 04/11/2022 No medications scheduled. Therapy Complete Valentina Sadler MD
--- OUTSIDE RECORDS SUMMARY | 2025-08-15 13:29 | XMS_ITS | Encounter Summary ---
[facility] Address [address] [place] [address] Care Team Providers Care Wheat Buyer Name Role Phone Provider, No Known Primary Care Provider Unavail able Encounter Details Date Type Department Care Team (Late st Contact Info) Description 08/06/2025 Readmission Management [facility] NURSE CALL CENTER [address] [place] [phone] Lavinia Quiros, DERRICK Social History Tobacco Use Types Packs/Day Years [...] care, and heating? Not very hard 07/15/2025 [facility] of Occupat ional Health - Occupational Stress [...] things needed for daily living? No 07/15/2025 [facility] Utilities Answer Date Recorded In the past 12 months has th e electric, gas, oil, or water [facility] threatened to shut off services in your [...] GED or equivalent No 07/15/2025 Preferred Language Macedonian 07/15/2025 PHQ-2 Answer Date Recorded Patient Health Questionnaire-2 Score 0 07/15/2025 Comments No Sex and Gender Information Value Date Recorded Sex Assigned at Not on file Legal Sex Female 11:35 AM EDT Gender Identity Not on file Sexual Orientation Not on file documented as of this encounter Miscellaneous Notes * Outreach Note - Lavinia Quiros RN - 08/06/2025 4:55 PM EST Medical Week 2 Survey Flowsheet Row Responses [facility] patient discharged from? [place] Does the patient have one of the following disease processes/diagnoses(primary or secondary)? Other Week 2 attempt successful? Yes Call start time 1657 Discharge diagnosis Spinal Cord Mass (Cervical Intramedullary Metastasis, Cauda Equina Syndrome), palliative radiation to cervical spine, Breast Cancer Metastasized to Bone, Brain, and Liver Call end time 1706 Person spoke with today (if not patient) and relationship patient Meds reviewed with patient/caregiver? Yes Is the patient having any side effects they believe may be caused by any medication additions or changes? No Does the patient have all medications ordered at discharge? Yes Is the patient taking all medications as directed (includes completed medication regime)? Yes Does the patient have a primary care provider? Yes Does the patient have an appointment with their PCP within 7 days of discharge? Yes Has the patient kept scheduled appointments due by today? N/A What DME was ordered? walker, W/C Has all DME been delivered? Yes Psychosocial issues? No Did the patient receive a copy of their discharge instructions? Yes Nursing interventions Reviewed instructions with patient What is the patient's perception of their health status since discharge? Improving Is the patient/caregiver able to teach back signs and symptoms related to disease process for when to call PCP? Yes Is the patient/caregiver able to teach back signs and symptoms related to disease process for when to call 911? Yes Is the patient/caregiver able to teach back the hierarchy of who to call/visit for symptoms/problems? PCP, Specialist, Home health nurse, Urgent Care, ED, 911 Yes Week 2 Call Completed? Yes Is the patient interested in additional calls from an ambulatory adult protective caseworker? No Would this patient benefit from a Referral to [facility] Social Work? No Wrap up additional comments Pt states she is doing ok, and trying to use walker more. Pt mostly uses WC to help with mobility. HH visits, and will inquire about PT. Reviewed AVS/meds with pt. Pt verified Oncology fu appt Call end time 170 Lavinia Alatorre - Registered Nurse documented in this encounter Plan of Treatment Upcoming Encounters Date Type Department Care Team (Late st Contact Info) Description 08/18/2025 8:45 AM EST Appointment [facility] OUTPATIENT ONCOLOGY [address] [place] [address] 08/18/2025 9:15 AM EST Office Visit [facility] HEMATOLOGY & ONCOLOGY [address] [address] Valentina Sadler MD [address] [address] 08/18/2025 9:30 AM EST Appointment [facility] OUTPATIENT ONCOLOGY [address] [place] [address] 09/13/2025 1:00 PM EST Clinical Support [facility] [address] [place] [address] Lita Luis APRN [address] [place] [address] documented as of this encounter Goals Goal Patient Goal Type Associated Problems Recent Progress Patient-Stated? Author Specialty Pharmacy General Goal General No Leighann Lam, PharmD Note: Clinical goal/therapeutic target: disease control, per the recent oncology clinic notes and labs. documented as of this encounter Visit Diagnoses Not on filedocumented in this encounter Care Teams Wheat Buyer Relationship Specialty Start Date End Date Provider, [place] [address] PCP - General 08/02/25 documented as of this encounter
--- OUTSIDE RECORDS SUMMARY | 2025-08-15 13:29 | XMS_ITS | Encounter Summary ---
[facility] Address [address] [place] [address] Care Team Providers Care Cyber Security Specialist Name Role Phone Provider, No Known Primary Care Provider Unavail able Encounter Details Date Type Department Care Team (Latest Contact Info) Description 08/06/2025 Travel Social History Tobacco Use Types Packs/Day [...] care, and heating? Not very hard 07/15/2025 [facility] [place] of Occupat ional Health - Occupational Stress [...] things needed for daily living? No 07/15/2025 [facility] Utilities Answer Date Recorded In the [...] GED or equivalent No 07/15/2025 Preferred Language Polish 07/15/2025 PHQ-2 Answer Date Recorded Patient Health [...] Info) Description 08/18/2025 8:45 AM EST Appointment [facility] OUTPATIENT ONCOLOGY [address] [place] [address] 08/18/2025 9:15 AM EST Office Visit [facility] HEMATOLOGY & ONCOLOGY [address] [address] Valentina Sadler MD [address] [address] 08/18/2025 9:30 AM EST Appointment [facility] OUTPATIENT ONCOLOGY [address] [place] [address] 09/13/2025 1:00 PM EST Clinical Support [facility] [address] [place] [address] Lita Luis APRN [address] [place] [address] documented as of this encounter Goals Goal Patient Goal Type Associated Problems Recent Progress Patient-Stated? Author Specialty Pharmacy General Goal General No Leighann Lam, PharmD Note: Clinical goal/therapeutic target: disease control, per the recent oncology clinic notes and labs. documented as of this encounter Visit Diagnoses Not on filedocumented in this encounter Care Teams Cyber Security Specialist Relationship Specialty Start Date End Date Provider, [place] [address] PCP - General 08/02/25 documented as of this encounter
--- OUTSIDE RECORDS SUMMARY | 2025-08-15 13:29 | XMS_ITS | Encounter Summary ---
[facility] Address [address] [place] [address] Care Team Providers Care Banking Consultant Name Role Phone Provider, No Known Primary Care Provider Unavail able Reason for Visit * Reason Onset Date Comments JOCELYN-ISSUES 08/13/2025 Encounter Details Date Type Department Care Team (Late st Contact Info) Description 08/13/2025 Telephone [facility] HEMATOLOGY & ONCOLOGY [address] [phone] Valentina Sadler MD [address] [place] [address] JOCELYN-ISSUES Social History Tobacco Use Types Packs/Day Years [...] care, and heating? Not very hard 07/15/2025 [facility] of Occupat critical access hospitalal Health - Occupational Stress Questionnaire Answer Date [...] daily living? No 07/15/[address] [facility] Utilities Answer Date Recorded In the [...] GED or equivalent No 07/15/2025 Preferred Language Greenlandic 07/15/2025 PHQ-2 Answer Date Recorded Patient Health Questionnaire-2 Score 0 07/15/2025 Comments No Sex and Gender Information Value Date Recorded Sex Assigned at Not on file Legal Sex Female 11:35 AM EDT Gender Identity Not on file Sexual Orientation Not on file documented as of this encounter Miscellaneous Notes * Telephone Encounter - Kandice Salazar RN - 08/13/2025 2:54 PM EST RN returned call to pt. Pt had her sister talk with RN. Sister states pt's pain is uncontrolled with oxycodone 7.5mg. Pt c/o generalized pain, pain with urination, non productive cough, and also pt has a new bedsore on her right hip. Pt's lungs sound rattling . Sister also asked if we could order a hospital bed. RN discussed with Dr Zapata. Dr Zapata is increasing pain medication, recommends pt try otc cough medications, go to the ED if pain can not be controlled. Dr Zapata will order hospital bed. RN returned call to pt and let her know Dr Zapata's recommendation. Pt verbalized understanding. * Telephone Encounter - Irina Kimball - 08/13/2025 1:47 PM EST Patient left a voicemail she is having some issues she needs a call back. documented in this encounter Plan of Treatment Upcoming Encounters Date Type Department Care Team (Cande Contact Info) Description 08/18/2025 8:45 AM EST Appointment [facility] OUTPATIENT ONCOLOGY [address] [place] [address] 08/18/2025 9:15 AM EST Office Visit [facility] HEMATOLOGY & ONCOLOGY [address] [phone] Valentina Sadler MD [address]00 [facility] [address] [place] [address] 08/18/2025 9:30 AM EST Appointment [facility] OUTPATIENT ONCOLOGY [address] [place] [address] 09/13/2025 1:00 PM EST Clinical Support [facility] [address] [place] [address] Lita Luis APRN [address] [place] [address] documented as of this encounter Goals Goal Patient Goal Type Associated Problems Recent Progress Patient-Stated? Author Specialty Pharmacy General Goal General No Leighann Lam, PharmD Note: Clinical goal/therapeutic target: disease control, per the recent oncology clinic notes and labs. 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
--- OUTSIDE RECORDS SUMMARY | 2025-08-15 13:30 | XMS_ITS | Encounter Summary ---
[facility] Address [address] [place] [address] Care Team Providers Care Stack Clerk Name Role Phone Provider, No Known Primary Care Provider Unavail able Encounter Details Date Type Department Care Team (Late st Contact Info) Description 08/05/2025 Clinical Support No Requirements [facility] NEUROSURGERY [address] [facility] [address] [place] [address] Bryn Valera MD [address] [facility] [address] [place] [address] Metastasis to brain (Primary Dx) Social History Tobacco Use Types Packs/Day Years [...] care, and heating? Not very hard 07/15/2025 [employer] [place] of Occupat ional Health - Occupational Stress [...] Recorded In the past 12 months has [employer], gas, oil, or water [employer] threatened to shut off services in your [...] GED or equivalent No 07/15/2025 Preferred Language Vincentian 07/15/2025 PHQ-2 Answer Date Recorded Patient Health Questionnaire-2 Score 0 07/15/2025 Comments No Sex and Gender Information Value Date Recorded Sex Assigned at Not on file Legal Sex Female 11:35 AM EDT Gender Identity Not on file Sexual Orientation Not on file documented as of this encounter Progress Notes * Bryn Valera MD - 08/05/2025 12:15 PM EST NEUROSURGERY CYBERKNIFE NOTE PREOPERATIVE DIAGNOSIS: Cerebellar brain metastases Metastatic breast cancer POSTOPERATIVE DIAGNOSIS: Same PROCEDURE: CyberKnife radiosurgery to treat to cerebellar brain metastases SURGEON: Bryn Valera M.D. RADIATION ONCOLOGIST: Dorothea Gannon ANESTHESIA: None COMPLICATIONS: None CLINICAL NOTE: The patient is a 65-year-old woman with longstanding breast cancer. Metastatic lesions are noted inher cerebellum. These have increased in size and as such she presents for CyberKnife radiosurgery to treat to cerebellar brain metastases. The right lesion is 13 mm in diameter and the left lesion is18 mm in diameter. The nature of the procedure as well as the potential risks, complications, limitations, and alternatives to the procedure were discussed at length with the patient and the patient has agreed to proceed with surgery. TECHNICAL NOTE: Prior to treatment the patient underwent the appropriate CT and MRI imaging studies and these data sets were downloaded into the CyberKnife planning station. The cervical lesions and adjacent critical structures were contoured. The plan was then developed in conjunction with radiation physicist andradiation oncologist deliver 20 Humphries in a single fraction to both of these lesions. On the day of treatment the patient was brought to the CyberKnife suite and placed on the treatmenttable. Previously fashioned Aquaplast mask was applied to her calvarium. Biplanar orthogonal skull x-rays were obtained and these images were registered with the digitally derive images from the CT data set. Good registration was achieved. She then went her single fraction of radiosurgery without difficulty. She subsequently left the CyberKnife suite under her own power. She was to follow-up in my clinic 1 month from the time of treatment. Bryn Valera M.D. documented in this encounter Plan of Treatment Upcoming Encounters Date Type Department Care Team (Late st Contact Info) Description 08/18/2025 8:45 AM EST Appointment [facility] OUTPATIENT ONCOLOGY [address] [place] [address] 08/18/2025 9:15 AM EST Office Visit [facility] HEMATOLOGY & ONCOLOGY [address] [address] Valentina Sadler MD [address] [address] 08/18/2025 9:30 AM EST Appointment [facility] OUTPATIENT ONCOLOGY [address] [place] [address] 09/13/2025 1:00 PM EST Clinical Support [facility] [address] [place] [address] Lita Luis APRN [address] [place] [address] documented as of this encounter Goals Goal Patient Goal Type Associated Problems Recent Progress Patient-Stated? Author Specialty Pharmacy General Goal General No Leighann Lam, PharmD Note: Clinical goal/therapeutic target: disease control, per the recent oncology clinic notes and labs. documented as of this encounter Visit Diagnoses Diagnosis Metastasis to brain- Primary Secondary malignant neoplasm of brain and spinal cord documented in this encounter Care Teams Stack Clerk Relationship Specialty Start Date End Date Provider, [place] [address] PCP - General 08/02/25 documented as of this encounter
--- OUTSIDE RECORDS SUMMARY | 2025-08-15 13:31 | XMS_ITS | Encounter Summary ---
[facility] Address [address] [place] [address] Care Team Providers Care Meat Team Member Name Role Phone Provider, No Known Primary Care Provider Unavail able Reason for Visit * Reason Onset Date Comments JOCELYN-BLOOD THINNER 08/05/2025 Encounter Details Date Type Department Care Team (Late st Contact Info) Description 08/05/2025 Telephone [facility] HEMATOLOGY & ONCOLOGY [address] [facility] [address] [place] [address] Valentina Sadler MD [address] [facility] [address] [place] [address] JOCELYN-BLOOD THINNER Social History Tobacco Use Types Packs/Day Years [...] care, and heating? Not very hard 07/15/2025 [facility] - Occupational Stress Questionnaire Answer Date Recorded [...] needed for daily living? No 07/15/2025 [facility] Utilities Answer Date Recorded In the past [...] GED or equivalent No 07/15/2025 Preferred Language Maltese 07/15/2025 PHQ-2 Answer Date Recorded Patient Health Questionnaire-2 Score 0 07/15/2025 Comments No Sex and Gender Information Value Date Recorded Sex Assigned at Not on file Legal Sex Female 11:35 AM EDT Gender Identity Not on file Sexual Orientation Not on file documented as of this encounter Miscellaneous Notes * Telephone Encounter - Kandice Salazar RN - 08/05/2025 1:53 PM EST RN discussed with Dr Banks. Dr Banks advised pt can stop talking the xarelto. Pt's duplex was negative for a blood clot. RN called pt and let her know. Pt verbalized understanding. * Telephone Encounter - Kenna Gutiérrez PCT - 08/05/2025 12:58 PM EST PATIENT STOPPED BY THE OFFICE TODAY AND STATED DR. BANKS STARTED HER ON BLOOD THINNERS A COUPLE DAYS AGO AND SHE DOSENT THINK SHE NEEDS THEM. SHE SAID SHE HAS HAD SOME NOSE BLEEDS. PLEASE CALL AND ADVISE. documented in this encounter Plan of Treatment Upcoming Encounters Date Type Department Care Team (Late st Contact Info) Description 08/18/2025 8:45 AM EST Appointment [facility] OUTPATIENT ONCOLOGY [address] [facility] [place] [address] 08/18/2025 9:15 AM EST Office Visit [facility] HEMATOLOGY & ONCOLOGY [address] [facility] [address] [place] [address] Valentina Sadler MD [address] [facility] [address] [place] [address] 08/18/2025 9:30 AM EST Appointment [facility] OUTPATIENT ONCOLOGY [address] [place] [address] 09/13/2025 1:00 PM EST Clinical Support [facility] [address] [place] [address] Lita Luis APRN [address] [place] [address] documented as of this encounter Goals Goal Patient Goal Type Associated Problems Recent Progress Patient-Stated? Author Specialty Pharmacy General Goal General No Leighann Lam, PharmD Note: Clinical goal/therapeutic target: disease control, per the recent oncology clinic notes and labs. documented as of this encounter Visit Diagnoses Not on filedocumented in this encounter Care Teams Meat Team Member Relationship Specialty Start Date End Date Provider, [place] [address] PCP - General 08/02/25 documented as of this encounter
--- OUTSIDE RECORDS SUMMARY | 2025-08-15 13:32 | XMS_ITS | Encounter Summary ---
Author [facility] Address [address] [place] [address] Care Team Providers Care Blending Line Attendant Name Role Phone Provider, No Known Primary Care Provider Unavail able Reason for Visit * Reason Onset Date Comments Med Refill 08/03/2025 Encounter Details Date Type Department Care Team (Late st Contact Info) Description 08/03/2025 Refill [facility] HEMATOLOGY & ONCOLOGY [address] [facility] [address] [place] [address] Valentina Sadler MD [address] [facility] [address] [place] [address] Social History Tobacco Use Types Packs/Day Years [...] care, and heating? Not very hard 07/15/2025 [facility] [place] of Occupat ional Health - Occupational Stress [...] things needed for daily living? No 07/15/2025 [facility] Utilities Answer Date Recorded In [...] GED or equivalent No 07/15/2025 Preferred Language Mexican 07/15/2025 PHQ-2 Answer Date Recorded Patient Health [...] Info) Description 08/18/2025 8:45 AM EST Appointment [facility] OUTPATIENT ONCOLOGY [address] [place] [address] 08/18/2025 9:15 AM EST Office Visit [facility] HEMATOLOGY & ONCOLOGY [address] [address] Valentina Sadler MD [address] [address] 08/18/2025 9:30 AM EST Appointment [facility] OUTPATIENT ONCOLOGY [address] [place] [address] 09/13/2025 1:00 PM EST Clinical Support [facility] [address] [place] [address] Lita Luis APRN [address] [place] [address] documented as of this encounter Goals Goal Patient Goal Type Associated Problems Recent Progress Patient-Stated? Author Specialty Pharmacy General Goal General No Leighann Lam, PharmD Note: Clinical goal/therapeutic target: disease control, per the recent oncology clinic notes and labs. documented as of this encounter Visit Diagnoses Not on filedocumented in this encounter Care Teams Blending Line Attendant Relationship Specialty Start Date End Date Provider, [place] [address] PCP - General 08/02/25 documented as of this encounter
--- OUTSIDE RECORDS SUMMARY | 2025-08-15 13:32 | XMS_ITS | Encounter Summary ---
[facility] Address [address] [place] [address] Care Team Providers Care Hazmat Tanker Driver Name Role Phone Provider, No Known Primary Care Provider Unavail able Encounter Details Date Type Department Care Team (Latest Contact Info) Description 08/04/2025 Travel Social History Tobacco Use Types Packs/Day [...] care, and heating? Not very hard 07/15/2025 [facility] [place] of Occupat ional Health - Occupational Stress [...] for daily living? No 07/15/2025 [facility] Utilities Answer Date Recorded In the [...] GED or equivalent No 07/15/2025 Preferred Language Belarusian 07/15/2025 PHQ-2 Answer Date Recorded Patient Health [...] Info) Description 08/18/2025 8:45 AM EST Appointment [facility] OUTPATIENT ONCOLOGY [address] [place] [address] 08/18/2025 9:15 AM EST Office Visit [facility] HEMATOLOGY & ONCOLOGY [address] [address] Valentina Sadler MD [address] [address] 08/18/2025 9:30 AM EST Appointment [facility] OUTPATIENT ONCOLOGY [address] [place] [address] 09/13/2025 1:00 PM EST Clinical Support [facility] [address] [place] [address] Lita Luis APRN [address] [place] [address] documented as of this encounter Goals Goal Patient Goal Type Associated Problems Recent Progress Patient-Stated? Author Specialty Pharmacy General Goal General No Leighann Lam, PharmD Note: Clinical goal/therapeutic target: disease control, per the recent oncology clinic notes and labs. documented as of this encounter Visit Diagnoses Not on filedocumented in this encounter Care Teams Hazmat Tanker Driver Relationship Specialty Start Date End Date Provider, [place] [address] PCP - General 08/02/25 documented as of this encounter
--- OUTSIDE RECORDS SUMMARY | 2025-08-15 13:32 | XMS_ITS | Encounter Summary ---
Author Organization [facility] Address [address] [place] [address] Care Team Providers Care Hat Brusher Machine Name Role Phone Provider, No Known Primary Care Provider Unavail able Reason for Visit * Reason Onset Date Comments JOCELYN-TRIAGE 08/02/2025 Encounter Details Date Type Department Care Team (Late st Contact Info) Description 08/02/2025 Telephone [facility] HEMATOLOGY & ONCOLOGY [address] [phone] Valentina Sadler MD [address]00 [place] [address] JOCELYN-TRIAGE Social History Tobacco Use Types Packs/Day [...] care, and heating? Not very hard 07/15/2025 [facility] - Occupational Stress Questionnaire Answer [...] things needed for daily living? No 07/15/2025 [facility] Utilities Answer Date Recorded In [...] GED or equivalent No 07/15/2025 Preferred Language Amharic 07/15/2025 PHQ-2 Answer Date Recorded Patient Health Questionnaire-2 Score 0 07/15/2025 Comments No Sex and Gender Information Value Date Recorded Sex Assigned at Not on file Legal Sex Female 11:35 AM EDT Gender Identity Not on file Sexual Orientation Not on file documented as of this encounter Miscellaneous Notes * Telephone Encounter - Kandice Salazar RN - 08/02/2025 9:28 AM EST RN discussed with Dr Zapata. Dr Zapata sent ditropan prescription to pt's pharmacy. RN called pt and let her know. Pt verbalized understanding. * Telephone Encounter - Kandice Salazar RN - 08/02/2025 8:55 AM EST RN returned call to pt. Pt reports incontinence is worse, she is urinating without awareness. Pt reports her movement seems better. RN will notify Dr Zapata and call pt back with recommendations. Pt verbalized understanding. * Telephone Encounter - Irina Kimball - 08/02/2025 8:22 AM EST Patient called she is having some incontinence, doesn't even know when it's going to happen, also moving slower on her left side. Please call. documented in this encounter Plan of Treatment Upcoming Encounters Date Type Department Care Team (Late st Contact Info) Description 08/18/2025 8:45 AM EST Appointment [facility] OUTPATIENT ONCOLOGY [address] [place] [address] 08/18/2025 9:15 AM EST Office Visit [facility] [address]00 [facility] [address] [place] [address] Valentina Sadler MD 1700 [facility] [address] [place] [address] 08/18/2025 9:30 AM EST Appointment [facility] OUTPATIENT ONCOLOGY [address] [facility] [place] [address] 09/13/2025 1:00 PM EST Clinical Support [facility] [address] [place] [address] Lita Luis APRN [address] [place] [address] documented as of this encounter Goals Goal Patient Goal Type Associated Problems Recent Progress Patient-Stated? Author Specialty Pharmacy General Goal General No Leighann Lam, PharmD Note: Clinical goal/therapeutic target: disease control, per the recent oncology clinic notes and labs. documented as of this encounter Visit Diagnoses Not on filedocumented in this encounter Care Teams Hat Brusher Machine Relationship Specialty Start Date End Date Provider, [place] [address] PCP - General 08/02/25 documented as of this encounter
--- OUTSIDE RECORDS SUMMARY | 2025-08-15 13:33 | XMS_ITS | Encounter Summary ---
[facility] Address [address] [place] [address] Care Team Providers Care Factory Maintenance Manager Name Role Phone Provider, No Known Primary Care Provider Unavail able Encounter Details Date Type Department Care Team (Latest Contact Info) Description 08/02/2025 Travel Social History Tobacco Use Types Packs/Day [...] care, and heating? Not very hard 07/15/2025 [facility] of Occupat ional Health - Occupational Stress [...] things needed for daily living? No 07/15/2025 [facility] Utilities Answer Date Recorded In the [...] GED or equivalent No 07/15/2025 Preferred Language Telugu 07/15/2025 PHQ-2 Answer Date Recorded Patient Health [...] Info) Description 08/18/2025 8:45 AM EST Appointment [facility] OUTPATIENT ONCOLOGY [address] [place] [address] 08/18/2025 9:15 AM EST Office Visit [facility] HEM[facility] & ONCOLOGY [address] [address] Valentina Sadler MD [address] [address] 08/18/2025 9:30 AM EST Appointment [facility] OUTPATIENT ONCOLOGY [address] [place] [address] 09/13/2025 1:00 PM EST Clinical Support [facility] [address] [place] [address] Lita Lusi APRN [address]00 [place] [address] documented as of this encounter Goals Goal Patient Goal Type Associated Problems Recent Progress Patient-Stated? Author Specialty Pharmacy General Goal General No Leighann Lam, PharmD Note: Clinical goal/therapeutic target: disease control, per the recent oncology clinic notes and labs. documented as of this encounter Visit Diagnoses Not on filedocumented in this encounter Care Teams Factory Maintenance Manager Relationship Specialty Start Date End Date Provider, [place] [address] PCP - General 08/02/25 documented as of this encounter
--- OUTSIDE RECORDS SUMMARY | 2025-08-15 13:33 | XMS_ITS | Encounter Summary ---
Author Organization [facility] Address [address] [place] [address] Care Team Providers Care Dope Dry House Operator Name Role Phone Provider, No Known Primary Care Provider Unavail able Reason for Visit * Reason Onset Date Comments JOCELYN-SYMPTOMS CONCERN/CLINICAL 08/03/2025 Encounter Details Date Type Department Care Team (Late st Contact Info) Description 08/03/2025 Telephone [facility] HEMATOLOGY & ONCOLOGY [address] [address] Valentina Sadler MD [address]00 [place] [address] JOCELYN-SYMPTOMS CONCERN/CLINICAL Social History Tobacco Use Types Packs/Day Years [...] care, and heating? Not very hard 07/15/2025 [facility] [place] [facility] Health - Occupational Stress Questionnaire Answer Date [...] things needed for daily living? No 07/15/2025 [facility] Utilities Answer Date Recorded In the [...] GED or equivalent No 07/15/2025 Preferred Language Marshallese 07/15/2025 PHQ-2 Answer Date Recorded Patient Health Questionnaire-2 Score 0 07/15/2025 Comments No Sex and Gender Information Value Date Recorded Sex Assigned at Not on file Legal Sex Female 11:35 AM EDT Gender Identity Not on file Sexual Orientation Not on file documented as of this encounter Miscellaneous Notes * Telephone Encounter - Kandice [place] RN - 08/03/2025 12:22 PM EST RN discussed with Dr Zapata. Dr Zapata would like pt to get a duplex of her lle and start pt on xarelto loading dose. Dr Zapata also advised to consult with wound care for recommendations on bedsore. RN called pt back and let her know Dr Zapata's recommendations. Pt verbalized understanding, expressed she would like to take care of all things from home due to difficulty with mobility. * Telephone Encounter - Kandice [place] RN - 08/03/2025 10:50 AM EST RN returned call to pt. Pt c/o bedsore that has been present for a few days, progressing since lastpm. Also reports swelling of her left ankle and calf, warm to touch, no pain or redness. Swelling per pt description, 2-3+ pitting. RN will notify Dr Zapata and call pt back with Dr Zapata's recommendations. Pt verbalized understanding. * Telephone Encounter - Homero Selby RegSched Rep - 08/03/2025 8:23 AM EST Provider: DR JOCELYN Easoner: CARLOS DIOP Relationship to Patient: NIECE NO BH VERBAL RELEASE ON FILE Pharmacy: [facility] [place] - [address] [phone] [facility] [phone] FX Reason for Call: AGUSTIN HAS A BEDSORE MIDWAY DOWN ON HER BUTTOCKS AND USING OTC BUTT PASTE BUT IS NOT HEALING UP , AND WANTED TO SEE IF COULD CALL IN A [place] OR RX CREAM IN TO HELP HEAL BETTER CONCERNED IT MAY BECOME A DEEP WOUND SIZE IS ABOUT INCH AND HALF BY INCH AND HALF ALSO WANTED TO NOTE HAS NOTICED SOME LIGHT SWELLING ON LEFT LEG AROUND THE ANKLE AND CALF When was the patient last seen: 07/28/25 When did it start: NOTICED 2-3 DAYS AGO Where is it located: BUTTOCKS MIDWAY SORE, Characteristics of symptom/severity: SORE What therapies/medications have you tried: BUTT PASTE NORBERTO documented in this encounter Plan of Treatment Upcoming Encounters Date Type Department Care Team (Late st Contact Info) Description 08/18/2025 8:45 AM EST Appointment [facility] OUTPATIENT ONCOLOGY [address] [place] [address] 08/18/2025 9:15 AM EST Office Visit [facility] ONCOLOGY [address] [address] Valentina Sadler MD 1700 [facility] [address] [place] [address] 08/18/2025 9:30 AM EST Appointment [facility] OUTPATIENT ONCOLOGY [address] [place] [address] 09/13/2025 1:00 PM EST Clinical Support [facility] [address] [place] [address] Lita Luis APRN [address] [place] [address] documented as of this encounter Goals Goal Patient Goal Type Associated Problems Recent Progress Patient-Stated? Author Specialty Pharmacy General Goal General No Leighann Lam, PharmD Note: Clinical goal/therapeutic target: disease control, per the recent oncology clinic notes and labs. documented as of this encounter Visit Diagnoses Not on filedocumented in this encounter Care Teams Dope Dry House Operator Relationship Specialty Start Date End Date Provider, [place] [address] PCP - General 08/02/25 documented as of this encounter
--- OUTSIDE RECORDS SUMMARY | 2025-08-15 13:34 | XMS_ITS | Encounter Summary ---
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 Not very hard 07/15/2025 [facility] of Occupat ional Health - Occupational Stress [...] things needed for daily living? No 07/15/2025 [facility] Utilities Answer Date Recorded In the past 12 months has [facility] electric, gas, oil, or water company threatened [...] GED or equivalent No 07/15/2025 Preferred Language Thai 07/15/2025 PHQ-2 Answer Date Recorded Patient Health [...] Info) Description 08/18/2025 8:45 AM EST Appointment [facility] OUTPATIENT ONCOLOGY [address] [place] [address] 08/18/2025 9:15 AM EST Office Visit [facility] HEMAT[facility] & ONCOLOGY [address] [address] Valentina Sadler MD [address] [address] 08/18/2025 9:30 AM EST Appointment [facility] OUTPATIENT ONCOLOGY [address] [place] [address] 09/13/2025 1:00 PM EST Clinical Support [facility] [address]00 [facility] [address] Lita Luis APRN [address] [place] [address] documented as of this encounter Goals Goal Patient Goal Type Associated Problems Recent Progress Patient-Stated? Author Specialty Pharmacy General Goal General No Leighann Lam, PharmD Note: Clinical goal/therapeutic target: disease control, per the recent oncology clinic notes and labs. documented as of this encounter Visit Diagnoses Diagnosis Type 2 diabetes mellitus with other specified complication, unspecified whether correction insulin use- Primary documented in this encounter
--- OUTSIDE RECORDS SUMMARY | 2025-08-15 13:35 | XMS_ITS | Encounter Summary ---
Author Organization [facility] Address [address] [place] [address] Care Team Providers Care Country Manager Name Role Phone Unavailable Primary Care Provider Unavailabl e Reason for Visit * Reason Onset Date Comments TJ 07/29/2025 insulin prescription 07/29/2025 Encounter Details Date Type Department Care Team (Late st Contact Info) Description 07/29/2025 Telephone [facility] HEMATOLOGY & ONCOLOGY [address] [phone] Valentina Sadler MD [address]00 [place] [id number] TJ; insulin prescription Social History Tobacco Use Types Packs/Day Years [...] care, and heating? Not very hard 07/15/2025 [facility] [place] of Occupat ional Health - Occupational Stress [...] things needed for daily living? No 07/15/2025 [facility] Utilities Answer Date Recorded In the past 12 months has [facility] electric, gas, oil, or water company threatened [...] Telephone Encounter - Kandice [place] RN - 07/29/2025 11:47 AM EDT RN called pt back and let her know prescriptions have been sent to her pharmacy, [facility].Pt verbalized understanding. * Telephone Encounter - Kandice [place] RN - 07/29/2025 10:02 AM EDT RN returned call to pt. Pt reports [facility] did not have the insulin pens in stock. Pt is requesting Dr Zapata send new prescriptions to [facility] [place]. Pt wants the injector pens. Pt has never taken insulin prior to recent hospitalization, she only has enough for two more days. RN will discuss with Dr Zapata and call pt back. Pt verbalized understanding. * Telephone Encounter - Irina Jurado RegSched Rep - 07/29/2025 8:35 AM EDT Caller: Peter Parnell Relationship: Self Best call back number: [phone] Requested Prescriptions: LISPRO AND LANTUS INSULIN PEN AND PEN NEEDLE TIPS NOT THE SYRINGE Pharmacy where request should be sent: [facility] [address] [place] - [address] [phone] [facility] [phone] FX Last office visit with prescribing clinician: 07/28/2025 Last telemedicine visit with prescribing clinician: Visit date not found Next office visit with prescribing clinician: 08/18/2025 Additional details provided by patient: [facility] DOES NOT HAVE PENS Does the patient have less than a 3 day supply: [x] Yes [] No Would you like a call back once the refill request has been completed: [x] Yes [] No If the office needs to give you a call back, can they leave a voicemail: [x] Yes [] No Gerson Krueger Rep 07/29/25 08:36 EDT documented in this encounter Plan of Treatment Upcoming Encounters Date Type Department Care Team (Late st Contact Info) Description 08/18/2025 8:45 AM EST Appointment [facility] OUTPATIENT ONCOLOGY [address] [place] [address] 08/18/2025 9:15 AM EST Office Visit [facility] HEMAT[facility] & ONCOLOGY [address] [address] Valentina Sadler MD [address] [address] 08/18/2025 9:30 AM EST Appointment [facility] OUTPATIENT ONCOLOGY [address] [place] [address] 09/13/2025 1:00 PM EST Clinical Support [facility] [address] [place] [place] [address] Lita Luis APRN [address] [place] [address] documented as of this encounter Goals Goal Patient Goal Type Associated Problems Recent Progress Patient-Stated? Author Specialty Pharmacy General Goal General No Leighann Lam, PharmD Note: Clinical goal/therapeutic target: disease control, per the recent oncology clinic notes and labs. documented as of this encounter Visit Diagnoses Not on filedocumented in this encounter
--- OUTSIDE RECORDS SUMMARY | 2025-08-15 13:35 | XMS_ITS | Encounter Summary ---
[facility] Organization [facility] Address [address] [place] [address] Care Team Providers Care Analytical Manager Name Role Phone Unavailable Primary Care Provider Unavailabl e Encounter Details Date Type Department Care Team (Late st Contact Info) Description 07/29/2025 Readmission Management [facility] [address] [place] [phone] Patrizia Betancourt, RN Social History Tobacco Use Types Packs/Day Years [...] care, and heating? Not very hard 07/15/2025 [facility] [place] of Occupat ional Health - Occupational Stress [...] things needed for daily living? No 07/15/2025 [facility] Utilities Answer Date Recorded In the past 12 months has th e [email or web address], gas, oil, or water [employer] threatened to shut off services in your [...] GED or equivalent No 07/15/2025 Preferred Language Syriac 07/15/2025 PHQ-2 Answer Date Recorded Patient Health Questionnaire-2 Score 0 07/15/2025 Comments No Sex and Gender Information Value Date Recorded Sex Assigned at Not on file Legal Sex Female 11:35 AM EDT Gender Identity Not on file Sexual Orientation Not on file documented as of this encounter Miscellaneous Notes * Outreach Note - Patrizia Betancourt RN - 07/29/2025 12:29 PM EDT Medical Week 1 Survey Flowsheet Row Responses [facility] patient discharged from? [facility] Does the patient have one of the following disease processes/diagnoses(primary or secondary)? Other Week 1 attempt successful? Yes Call start time 1230 Call end time 1235 Person spoke with today (if not patient) and relationship patient Meds reviewed with patient/caregiver? Yes Is the patient having any side effects they believe may be caused by any medication additions or changes? No Does the patient have all medications ordered at discharge? Yes Prescription comments Pt hasnt started on insulin but will be in today Is the patient taking all medications as directed (includes completed medication regime)? Yes Comments regarding appointments Pt saw oncology yesterday Does the patient have a primary care provider? Yes Does the patient have an appointment with their PCP within 7 days of discharge? Yes Comments regarding PCP Primarily uses oncology at this time. Has the patient kept scheduled appointments due by today? Yes What DME was ordered? charlette W/C Psychosocial issues? No Did the patient receive a copy of their discharge instructions? Yes Nursing interventions Reviewed instructions with patient What is the patient's perception of their health status since discharge? Improving If the patient is a current smoker, are they able to teach back resources for cessation? Not a smoker Week 1 call completed? Yes Would this patient benefit from a Referral to Amb Social Work? No Is the patient interested in additional calls from an ambulatory caseworker? No Wrap up additional comments Pt feeling much improved now that she is at home. Denies needs. Call end time 1235 PATRIZIA Rodriguez - Registered Nurse documented in this encounter Plan of Treatment Upcoming Encounters Date Type Department Care Team (Late st Contact Info) Description 08/18/2025 8:45 AM EST Appointment [facility] OUTPATIENT ONCOLOGY [address] [place] [address] 08/18/2025 9:15 AM EST Office Visit [facility] HEMATOLOGY & ONCOLOGY [address]00 [facility] [address] [place] [address] Valentina Sadler MD [address]00 [facility] [address] [place] [address] 08/18/2025 9:30 AM EST Appointment [facility] OUTPATIENT ONCOLOGY [address] [place] [address] 09/13/2025 1:00 PM EST Clinical Support [facility] [address] [place] [address] Lita Luis APRN [address]00 [place] [address] documented as of this encounter Goals Goal Patient Goal Type Associated Problems Recent Progress Patient-Stated? Author Specialty Pharmacy General Goal General No Leighann Lam, PharmD Note: Clinical goal/therapeutic target: disease control, per the recent oncology clinic notes and labs. documented as of this encounter Visit Diagnoses Not on filedocumented in this encounter
--- OUTSIDE RECORDS SUMMARY | 2025-08-15 13:36 | XMS_ITS | Encounter Summary ---
Author [facility] Address [address] [place] [address] Care Team Providers Care Calender Let Off Operator Name Role Phone Loretta Cuevas MD Primary Care Provider [phone] Reason for Visit * Reason Onset Date Comments Med Refill 07/28/2025 Encounter Details Date Type Department Care Team (Late st Contact Info) Description 07/28/2025 Refill [facility] HEMATOLOGY & ONCOLOGY [address] [address] Valentina Sadler MD [address] [place] [address] Social History Tobacco Use Types Packs/Day Years [...] very hard 07/15/2025 [facility] [place] [facility] - Occupational Stress Questionnaire Answer [...] In the past [address] [facility] electric, gas, oil, or water company threatened [...] GED or equivalent No 07/15/2025 Preferred Language Congolese 07/15/2025 PHQ-2 Answer Date Recorded Patient Health [...] Info) Description 08/18/2025 8:45 AM EST Appointment [facility] OUTPATIENT ONCOLOGY [address] [place] [address] 08/18/2025 9:15 AM EST Office Visit [facility] HEMATOLOGY & ONCOLOGY [address] [address] Valentina Sadler MD [address] [address] 08/18/2025 9:30 AM EST Appointment [facility] OUTPATIENT ONCOLOGY [address] [place] [address] 09/13/2025 1:00 PM EST Clinical Support [facility] [address] [place] [address] Lita Luis APRN [address] [place] [address] documented as of this encounter Goals Goal Patient Goal Type Associated Problems Recent Progress Patient-Stated? Author Specialty Pharmacy General Goal General No Leighann Lam, PharmD Note: Clinical goal/therapeutic target: disease control, per the recent oncology clinic notes and labs. documented as of this encounter Visit Diagnoses Not on filedocumented in this encounter Care Teams Calender Let Off Operator Relationship Specialty Start Date End Date Loretta Cuevas MD [address] [place] [address] PCP - General 12/19/15 07/28/25 documented as of this encounter
--- OUTSIDE RECORDS SUMMARY | 2025-08-15 13:36 | XMS_ITS | Encounter Summary ---
[facility] Address [address] [place] [address] Care Team Providers Care Inclinometer Tester Name Role Phone Provider, No Known Primary Care Provider Unavail able Reason for Visit * Reason Onset Date Comments DR BANKS - MISSED CALL 07/28/2025 Encounter Details Date Type Department Care Team (Late st Contact Info) Description 07/28/2025 Telephone [facility] HEMATOLOGY & ONCOLOGY [address] [facility] [address] [place] [id number] Valentina Sadler MD [address] [facility] [address] [place] [address] DR BANKS - MISSED CALL Social History Tobacco Use Types Packs/Day Years [...] care, and heating? Not very hard 07/15/2025 [facility] - Occupational Stress Questionnaire Answer Date [...] things needed for daily living? No 07/15/2025 [facility] Utilities Answer Date Recorded In the [...] GED or equivalent No 07/15/2025 Preferred Language Ugandan 07/15/2025 PHQ-2 Answer Date Recorded Patient Health Questionnaire-2 Score 0 07/15/2025 Comments No Sex and Gender Information Value Date Recorded Sex Assigned at Not on file Legal Sex Female 11:35 AM EDT Gender Identity Not on file Sexual Orientation Not on file documented as of this encounter Miscellaneous Notes * Telephone Encounter - Meaghan Segundo RegSched Rep - 07/28/2025 3:00 PM EDT Caller: Peter Parnell Relationship: Self Best call back number: [phone] What was the call regarding: PT RETURNING A MISSED CALL documented in this encounter Plan of Treatment Upcoming Encounters Date Type Department Care Team (Late st Contact Info) Description 08/18/2025 8:45 AM EST Appointment [facility] OUTPATIENT ONCOLOGY [address] [facility] [place] [address] 08/18/2025 9:15 AM EST Office Visit [facility] HEMATOLOGY & ONCOLOGY [address] [facility] [address] [place] [address] Valentina Sadler MD [address] [facility] [address] [place] [address] 08/18/2025 9:30 AM EST Appointment [facility] OUTPATIENT ONCOLOGY [address] [place] [address] 09/13/2025 1:00 PM EST Clinical Support [facility] [address] [place] [id number] Lita Luis APRN [address] [place] [address] documented as of this encounter Goals Goal Patient Goal Type Associated Problems Recent Progress Patient-Stated? Author Specialty Pharmacy General Goal General No Leighann Lam, PharmD Note: Clinical goal/therapeutic target: disease control, per the recent oncology clinic notes and labs. documented as of this encounter Visit Diagnoses Not on filedocumented in this encounter Care Teams Inclinometer Tester Relationship Specialty Start Date End Date Provider, [place] [address] PCP - General 08/02/25 documented as of this encounter
--- OUTSIDE RECORDS SUMMARY | 2025-08-15 13:37 | XMS_ITS | Encounter Summary ---
[facility] [address] [place] [address] Care Team Providers Care Title I Director Name Role Phone Loretta Cuevas MD Primary Care Provider [phone] Encounter Details Date Type Department Care Team (Late st Contact Info) Description 07/28/2025 Readmission Management [facility] NURSE CALL CENTER [address] [place] [phone] Temi Walsh RN Social History Tobacco Use Types Packs/Day [...] Not very hard 07/15/2025 [facility] - Occupational Stress Questionnaire Answer [...] Recorded In the past 12 months has [employer] electric, gas, oil, or water company threatened [...] GED or equivalent No 07/15/2025 Preferred Language Finnish 07/15/2025 PHQ-2 Answer Date Recorded Patient Health Questionnaire-2 Score 0 07/15/2025 Comments No Sex and Gender Information Value Date Recorded Sex Assigned at Not on file Legal Sex Female 11:35 AM EDT Gender Identity Not on file Sexual Orientation Not on file documented as of this encounter Miscellaneous Notes * Outreach Note - Temi Walsh, RN - 07/28/2025 10:06 AM EDT Medical Week 1 Survey Flowsheet Row Responses [facility] patient discharged from? [facility] Does the patient have one of the following disease processes/diagnoses(primary or secondary)? Other Week 1 attempt successful? No Unsuccessful attempts Attempt 1 Temi Bacon - Registered Nurse documented in this encounter Plan of Treatment Upcoming Encounters Date Type Department Care Team (Late st Contact Info) Description 08/18/2025 8:45 AM EST Appointment [facility] OUTPATIENT ONCOLOGY [address] [place] [address] 08/18/2025 9:15 AM EST Office Visit [facility] HEMATOLOGY & ONCOLOGY [address] [facility] [address] [place] [address] Valentina Sadler MD [address] [facility] [address] [place] [address] 08/18/2025 9:30 AM EST Appointment [facility] OUTPATIENT ONCOLOGY [address] [place] [address] 09/13/2025 1:00 PM EST Clinical Support [facility] [address] [place] [address] Lita Luis APRN [address] [place] [address] documented as of this encounter Goals Goal Patient Goal Type Associated Problems Recent Progress Patient-Stated? Author Specialty Pharmacy General Goal General Leighann Gallo, PharmD Note: Clinical goal/therapeutic target: disease control, per the recent oncology clinic notes and labs. documented as of this encounter Visit Diagnoses Not on filedocumented in this encounter Care Teams Title I Director Relationship Specialty Start Date End Date Loretta Cuevas MD [address] [facility] [address] [place] [address] PCP - General 12/19/15 07/28/25 documented as of this encounter
--- OUTSIDE RECORDS SUMMARY | 2025-08-15 13:37 | XMS_ITS | Encounter Summary ---
Author Organization [facility] Address [address] [place] [address] Care Team Providers Care Flask Maker Name Role Phone Loretta Cuevas MD Primary Care Provider [phone] Encounter Details Date Type Department Care Team (Latest Contact Info) Description 07/28/2025 Travel Social History Tobacco Use Types Packs/Day [...] care, and heating? Not very hard 07/15/2025 [facility] - Occupational Stress [...] for daily living? No 07/15/2025 [facility] Utilities Answer Date Recorded In the [...] GED or equivalent No 07/15/2025 Preferred Language Greek 07/15/2025 PHQ-2 Answer Date Recorded Patient Health [...] Info) Description 08/18/2025 8:45 AM EST Appointment [facility] OUTPATIENT ONCOLOGY [address] [place] [address] 08/18/2025 9:15 AM EST Office Visit [facility] HEMATOLOGY & ONCOLOGY [address] [facility] [address] [place] [address] Valentina Sadler MD [address] [facility] [address] [place] [address] 08/18/2025 9:30 AM EST Appointment [facility] OUTPATIENT ONCOLOGY [address] [place] [address] 09/13/2025 1:00 PM EST Clinical Support [facility] [address] [place] [address] Lita Luis APRN [address] [place] [address] documented as of this encounter Goals Goal Patient Goal Type Associated Problems Recent Progress Patient-Stated? Author Specialty Pharmacy General Goal General No Leighann Lam, PharmD Note: Clinical goal/therapeutic target: disease control, per the recent oncology clinic notes and labs. documented as of this encounter Visit Diagnoses Not on filedocumented in this encounter Care Teams Flask Maker Relationship Specialty Start Date End Date Loretta Cuevas MD [address] [facility] [address] [place] [address] PCP - General 12/19/15 07/28/25 documented as of this encounter
--- OUTSIDE RECORDS SUMMARY | 2025-08-15 13:39 | XMS_ITS | Encounter Summary ---
Author Organization [facility] Address [address] [place] [address] Care Team Providers Care Student Nurse Name Role Phone Loretta Cuevas MD Primary Care Provider [phone] Encounter Details Date Type Department Care Team (Late st Contact Info) Description 07/27/2025 Readmission Management [facility] NURSE CALL C[facility] [address] [place] [phone] Denise Catherine, RN Social History Tobacco Use Types Packs/Day [...] care, and heating? Not very hard 07/15/2025 [facility] [place] [facility] - Occupational Stress [...] things needed for daily living? No 07/15/2025 [facility] Utilities Answer Date Recorded In the past 12 months has th [employer] electric, gas, oil, or water company threatened [...] GED or equivalent No 07/15/2025 Preferred Language Divehi 07/15/2025 PHQ-2 Answer Date Recorded Patient Health Questionnaire-2 Score 0 07/15/2025 Comments No Sex and Gender Information Value Date Recorded Sex Assigned at Not on file Legal Sex Female 11:35 AM EDT Gender Identity Not on file Sexual Orientation Not on file documented as of this encounter Miscellaneous Notes * Outreach Note - Denise Catherine RN - 07/27/2025 8:03 PM EDT Prep Survey Flowsheet Row Responses [facility] patient discharged from? [place] Is LACE score less than 10 ? No Eligibility Readm Mgmt Discharge diagnosis Spinal Cord Mass (Cervical Intramedullary Metastasis, Cauda Equina Syndrome), palliative radiation to cervical spine, Breast Cancer Metastasized to Bone, Brain, and Liver Does the patient have one of the following disease processes/diagnoses(primary or secondary)? Other Does the patient have Home health ordered? No Is there a DME ordered? Yes What DME was ordered? Eric ovalles/Maribell Prep survey completed? Yes Denise Alatorre - Registered Nurse documented in this encounter Plan of Treatment Upcoming Encounters Date Type Department Care Team (Late st Contact Info) Description 08/18/2025 8:45 AM EST Appointment [facility] OUTPATIENT ONCOLOGY [address] [place] [address] 08/18/2025 9:15 AM EST Office Visit [facility] & [facility] [address] [facility] [phone] Valentina Sadler MD [address] [address] 08/18/2025 9:30 AM EST Appointment [facility] OUTPATIENT ONCOLOGY [address] [place] [address] 09/13/2025 1:00 PM EST Clinical Support [facility] [address] [place] [address] Lita Luis APRN [address] [place] [address] documented as of this encounter Goals Goal Patient Goal Type Associated Problems Recent Progress Patient-Stated? Author Specialty Pharmacy General Goal General No Leighann Lam, PharmD Note: Clinical goal/therapeutic target: disease control, per the recent oncology clinic notes and labs. documented as of this encounter Visit Diagnoses Not on filedocumented in this encounter Care Teams Student Nurse Relationship Specialty Start Date End Date Loretta Cuevas MD [address] [facility] [address] [place] [address] PCP - General 12/19/15 07/28/25 documented as of this encounter
[2025-08-15 13:46] LABS: Hepatitis C Ab Qual. W/ RFX NEGATIVE (Negative)
[2025-08-15] MEDS: diazePAM 10MG/2ML SYRINGE 2 MG IV (14:53)
--- NOTE | 2025-08-15 15:22 | PC.NURSE ---
pt/ot, case management, nutrition and wound consult not ordered due to pt being comfort measures
--- NOTE | 2025-08-15 16:22 | PC.NURSE ---
patient's family had asked for a senior marketing coordinator to come visit. senior marketing coordinator juvenile detention officer was not available to come so we called dajuan castelan to come in and speak with the family. he arrived at 12:30.
--- NOTE | 2025-08-15 17:42 | PC.NURSE ---
we have asked the family if they wanted the pt turned several times today and they told us no that she seemed comfortable at the moment but they would let us know if she starts moving around.
--- NOTE | 2025-08-15 18:11 | PC.NURSE ---
pt is still unresponsive. we have kept her comfortable today. dr increased her pain medicine to every two hours and gave her an anxiety med as well. she is making some movements with her arm every now and again. she has had lots of family today visiting and her is at bedside.
--- NOTE | 2025-08-15 22:30 | P.DN_ITS ---
Documented by User: Meaghan Jovel APRN 08/16/25 07:29 Pronouncement Note Date and Time of Date of : 08/15/25 Time of : 22:29 PCOD Preliminary cause of : Septic shock Contributing Factors (1) Metabolic encephalopathy: (2) Septic shock: (3) Acute hypoxic respiratory failure: (4) Metastatic breast cancer: (5) NSTEMI (non-ST elevated myocardial infarction): (6) CAM[place] (acute kidney injury): (7) Hypoalbuminemia: (8) Neutropenia: (9) Thrombocytopenia: (10) Anemia: Summary Additional details: Notified by nursing staff that patient was apneic and asystolic. Upon arrival to the room family is at bedside. Patient examined. Pupils are fixed and dilated. No heart tones on auscultation. Respirations absent. Confirmed patient has with family. Additional Data Confirmation of : no pulse, no respirations, no heart sounds and pupils fixed and dilated Family: at bedside Attending/PCP notified?: Yes Attending physician: Romulo Gamble MD Was code activated?: No Autopsy should be considered if:: Unknown or unanticipated medical complications Cause is not known with certainty on clinical grounds Would allay concerns of the public/family regarding Unexplained/unexpected apparently natural and not subject to a forensic medical jurisdiction DOA Within 24 hours of admission Sustained or apparently sustained injury while in the hospital Result of high risk, infectious and contagious disease Obstetric and pediatric arising from environmental or occupational hazard Unexplained/unexpected from dental, medical, or surgical diagnostic procedures and/or therapies Would disclose a known or suspected illness which also may have a bearing on survivors or recipients of transplanted organs Autopsy requested?: No Inappropriate situation trial examiner notified?: Yes Organ bank notified?: Yes Documented by User: Romulo Gamble MD 08/16/25 12:50 Pronouncement Note Contributing Factors (1) Metabolic encephalopathy: (2) Septic shock: (3) Acute hypoxic respiratory failure: (4) Metastatic breast cancer: (5) NSTEMI (non-ST elevated myocardial infarction): (6) CAM[place] (acute kidney injury): (7) Hypoalbuminemia: (8) Neutropenia: (9) Thrombocytopenia: (10) Anemia: Summary Additional details: Ms. Jackson is a 65-year-old female with widely metastatic breast cancer who presents and extremis. Presentation consistent with septic shock given her tachycardia, tachypnea, hypotension nonresponsive to 2 L IV fluid, altered sensorium, endorgan damage with CAM[place], white count less than 4. Strong concern for infection most likely pneumonia. Has what appears to be a type II NSTEMI due to the stress of her hypoxia and septic/shock state. Review of chart shows white count of 1.4, neutrophil count of 8000, hemoglobin 6.3 with platelets of 58. Acidosis with lactic acid of 4.5, kidney function abnormal with BUN 28, creatinine 1.5. Troponin 0.05, BNP 1850. Albumin 2.2. Chest x-ray obtained showing patchy opacities in left lung with mild patchy opacities noted in the right lung base. No further EKG, imaging obtained at family request given goals of care for comfort care. No further fluids were administered. Patient not initiated on antibiotics. Blood cultures not obtained due to goals of care. Patient placed on nonrebreather for comfort. Initiated on hospice stone medications as follows: - glycopyrrolate 0.2 mg IV every 6 hours as needed for secretion management, morphine 4 mg IV every 2 hours for pain or respiratory distress, and Valium 2 mg IV every 4 hours for agitation. -Patient was in critical condition. Pastoral services consulted and came to bedside and spent time with family and prayed with family. Frequent car was provided. Admitted strictly for comfort care. Patient was checked on regularly by nursing staff and patient did receive several doses of morphine as well as Valium for her discomfort but in general was kept very comfortable. After shift change, p 3 armament/ordnance ima technician was notified by nursing staff that patient was apneic and asystolic. Upon arrival to the room family is at bedside. Patient examined. Pupils are fixed and dilated. No heart tones on auscultation. Respirations absent. Confirmed patient has with family.
--- NOTE | 2025-08-15 23:51 | PC.NURSE ---
22:25 family asked for a nurse because they believed patient had , this nurse assessed patient, no breath sounds or heart tones auscultated, notified SUGAR TRUCKER 22:28 SUGAR TRUCKER to bedside to assess patient 22:29 SUGAR TRUCKER pronounced time of , family at bedside 22:55 Ignacio rosario called, spoke with Anna Casarez, , Anna stated that they would like to further evaluate patient and to not release patient to home at this time 23:00 hand molder paged 23:05 spoke with Loretta louis, hand molder, let her know that anisa was evaluating further, hand molder stated it was ok to remove IV lines and nasal airway device 23:38 Carlin Boucher with [facility] arrived with nurse assistant to take the body, This nurse let him know that ignacio rosario had been contacted and that they wanted to further evaluate patient to not release body at this time. Carlin stated I am here on behalf of the hand molder, I will deal with them . 23:40 patient left with home personnel 23:44 called ignacio rosario and spoke with Anna. made them aware of the situation with the hand molder. Anna state ok, I will get with my team and get in touch with the hand molder
== END 2025-08-15 23:40 | disposition expired | DRG 871 ==
LOC: ER 09:47 → 2ND 10:27
PROVIDERS: Admitting Provider Internal Medicine Adolescent Medicine; Emergency Provider Student in an Organized Health Care Education/Training Program; PCP Obstetrics & Gynecology; Visit Provider Internal Medicine Adolescent Medicine
DX: A41.9 Sepsis, unspecified organism (principal); G93.41 Metabolic encephalopathy; R65.21 Severe sepsis with septic shock; J96.01 Acute respiratory failure with hypoxia; J18.9 Pneumonia, unspecified organism; I21.A1 Myocardial infarction type 2; D61.818 Other pancytopenia; E87.20 Acidosis, unspecified; C78.02 Secondary malignant neoplasm of left lung; C78.01 Secondary malignant neoplasm of right lung; C78.7 Secondary malignant neoplasm of liver and intrahepatic bile duct; C79.31 Secondary malignant neoplasm of brain; C79.51 Secondary malignant neoplasm of bone; N17.9 Acute kidney failure, unspecified; E88.09 Other disorders of plasma-protein metabolism, not elsewhere classified; C50.919 Malignant neoplasm of unspecified site of unspecified female breast; Z66 Do not resuscitate; Z51.5 Encounter for palliative care; Z79.631 Long term (current) use of antimetabolite agent; Z79.899 Other long term (current) drug therapy
CPT/HCPCS: 71045; 80053; 82803; 83880; 84484; 85007; 85025; 85610; 85730; 86803; 87389; 93005; 99285; J1596; J2270; J3360; J7120